=== PATIENT | female | born 1950 | race Caucasian/White ===

== ENCOUNTER → 2017-02-22 | Outpatient (CLI) | payer MEDICARE, BC ==
--- NOTE | 2017-02-23 09:54 | WWHP ---
DATE OF SERVICE: 02/22/2017 CHIEF COMPLAINT: The patient is here for her routine gynecologic exam and mammogram. HPI: This is a 67-year-old G1, P1 with an LMP of 1997. The patient says her last pelvic exam was about [address] Villanueva. She denies any postmenopausal bleeding. She has been having problems with urinary incontinence. She states she saw Dr. Gunter for this in the past and she did not have any surgical procedures for her incontinence. She states she notices large amounts of leakage without warning and this can be from simply standing up. She is to wear pads because of this and this has been a problem for her. The cost of her pads has been quite expensive. She also to having some vulvar pruritus. She does not know if this is related to recently shaving in the vulvar area or it has related to the wetness from urinary leakage. She denies any vaginal discharge. PAST MEDICAL HISTORY: Chronic hypertension, depression, and gout. Dr. Briones is her primary care physician. MEDICATIONS: 1. Lisinopril/hydrochlorothiazide 20/25 one daily. 2. Spironolactone with hydrochlorothiazide 25/25 one daily. 3. Amlodipine 5 mg daily. 4. Metoprolol 50 mg daily. 5. Trazodone 75 mg at bedtime. 6. Citalopram 40 mg q.a.m. 7. Bupropion 200 mg daily. 8. Clonazepam 0.5 mg daily and p.r.n. 9. Allopurinol 100 mg daily. ALLERGIES: No known drug allergies. PAST SURGICAL HISTORY: Colonoscopy x3 and the most recent was in 2012. Cholecystectomy in the past, gastric stomach stapling in 1979, cataract surgery 2015. PAST OB HISTORY: One vaginal delivery. 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 SOCIAL HISTORY: She denies tobacco, alcohol, and drug use. She has been since 1972 and is retired. FAMILY HISTORY: She has 2 brothers and both parents who had MIs. Mother had diabetes. REVIEW OF SYSTEMS: Weight has been stable. She denies respiratory or cardiac problems. GI: She has occasional reflux and occasional brief nausea. She denies maltreatment or falling. : She has been having significant problems with urinary leakage as above. PHYSICAL EXAM: Blood pressure 125/69. Height 5 feet 8 inches. Weight 273 pounds. Temperature 97.0, pulse 61. This a well-developed, obese white female who is alert and oriented x3 in no acute distress. HEENT is within normal limits. NECK: Supple without mass or thyromegaly. CHEST AND LUNGS: Clear to auscultation. HEART: Regular rate and rhythm. Breasts are without mass or discharge. Axillary exam is negative for adenopathy. BACK: Negative for CVA tenderness. ABDOMEN: Obese, soft, nontender, without palpable masses. PELVIC EXAM: External genitalia reveals mild atrophy with moderate dryness. There are no focal lesions. Cervix and vagina reveal mild to moderate atrophy without lesions. There is a grade 2 rectocele noted. There is no significant bladder or uterine prolapse noted. There is no unusual discharge. There is no cervical motion tenderness. The uterus is midposition, nongravid size and nontender. There are no palpable adnexal masses or tenderness. Rectal exam was refused by the patient. EXTREMITIES: Nontender with 2+ lower extremity edema. IMPRESSION: 1. A 67-year-old menopausal female with asymptomatic grade 2 rectocele. 2. Moderate to severe urinary incontinence, probable stress urinary incontinence with no significant physical findings at this time. 3. Vulvar pruritus probably associated with skin dryness and atrophy. This may or may not be related to the chronic urinary leakage. PLAN: 1. Pap smear was performed. 2. Self breast examination was discussed. 3. Mammogram will be done today. 4. Kenalog 0.1% cream b.i.d. p.r.n. for the pruritus. She will alternate this with something like A&D ointment to use as a protective layer for the chronic wetness associated with her incontinence. 5. We will plan on referring her to a SYSTEMS SUPPORT ENGINEER urologist for further evaluation of her urinary incontinence. She had already seen a local urologist without significant improvement. 6. She does get flu shots in the fall. 7. She will return in one year.
--- NOTE | 2017-02-24 10:37 | MM ---
Reason for exam: screening (asymptomatic). Last mammogram was performed 2 years and 11 months ago. History: Patient is postmenopausal. Took estrogen for 2 years 1 month. Took progesterone for 2 years 1 month. Physical Findings: A clinical breast exam by your physician is recommended on an annual basis and results should be correlated with mammographic findings. MG 3D Screening Mammo W/Cad Bilateral CC, MLO, and XCCL view(s) were taken. Prior study comparison: April 04, 2014, bilateral MG screening mammo w CAD. The breast tissue is almost entirely fat. No significant changes when compared with prior studies. ASSESSMENT: Negative, BI-RAD 1 RECOMMENDATION: Routine screening mammogram of both breasts in 1 year.
== END | disposition home or self-care (01) ==
LOC: WWCWWP 13:21
PROVIDERS: ATTEND Obstetrics & Gynecology
DX: Z12.31 Encounter for screening mammogram for malignant neoplasm of breast (principal)
CPT/HCPCS: 77063; G0202

== ENCOUNTER → 2018-02-23 | Outpatient (CLI) | payer MEDICARE ==
--- NOTE | 2018-02-23 18:34 | PN ---
PROGRESS NOTE DATE OF SERVICE: 02/23/2018 This patient is a 68-year-old lady who has been followed in the sleep center for treatment of obstructive sleep apnea-hypopnea syndrome. I did not see this patient for about 2-1/2 years. Since I saw her last time, for one year she continued to use her CPAP equipment, but then she stopped using it. Presently she developed a significant amount of headaches, and she wants to restart treatment with CPAP because she knows that sleep apnea could be the reason for triggering headaches and migraines. I checked her CPAP unit. CPAP pressure is 13 cm of water, as it was prescribed before. The patient changed her weight from 269 pounds down to 260 pounds today. when she did the previous CPAP titration. [place] Sleepiness Scale today is significantly increased at 20. I checked her CPAP unit. She did not use it recently. MEDICATIONS: 1. Metoprolol. 2. Amlodipine. 3. Trazodone. 4. Allopurinol. 5. Spironolactone. 6. Hydrochlorothiazide. 7. Citalopram. 8. Propafenone. 9. Lisinopril with hydrochlorothiazide. 10.Clonazepam. PHYSICAL EXAMINATION: GENERAL: Pleasant patient in no distress. VITAL SIGNS: BP 131/63, HR 56, RR 16, height 5 feet 6 inches, weight 260, BMI 41.9, temperature 98, oxygen saturation at room air 95%. HEENT: PERRLA, EOMI. Evaluation of oropharynx showed tongue protrudes midline; extremely low position of soft palate. NECK: Supple. No JVD. Thyroid is not palpable. LUNGS: Clear to percussion and to auscultation. Good air exchange. No wheezing or rhonchi. HEART: S1, S2 regular. No murmurs, gallops or rubs. ABDOMEN: Obese. EXTREMITIES : No clubbing or cyanosis. DRY COLOR MIXER: Awake, alert, and oriented X3. Cranial nerves 2 to 7 intact. There is no fasciculation or atrophy. noted. No focal deficits observed. IMPRESSION: 1. Obstructive sleep apnea-hypopnea syndrome. 2. Obesity. 3. History of depression and anxiety. 4. Hypertension. 5. Status post cholecystectomy. 6. Status post stomach stapling in 1977. PLAN: 1. Patient will again start to use her CPAP equipment and should use it every night for the whole night. 2. I will provide the patient with all necessary CPAP supplies, including mask, tube, filters. 3. Sleep hygiene with regular time in bed for 7-1/2 hours. 4. No driving if feeling any sleepiness. 5. Continue to lose weight. Thank you very much for allowing me to participate in the management of your patient. Sincerely, Harpreet Galeana MD, PhD, FAASM Diplomat of [employer] Developer of [facility] MMODL / TERRIN: [id number] /
== END | disposition home or self-care (01) ==
LOC: SLEEP 16:43
PROVIDERS: ATTEND Internal Medicine
DX: G47.33 Obstructive sleep apnea (adult) (pediatric) (principal); E66.9 Obesity, unspecified; I10 Essential (primary) hypertension; Z90.49 Acquired absence of other specified parts of digestive tract; Z98.890 Other specified postprocedural states; Z86.59 Personal history of other mental and behavioral disorders; Z68.41 Body mass index [BMI] 40.0-44.9, adult; Z79.899 Other long term (current) drug therapy; Z99.89 Dependence on other enabling machines and devices

== ENCOUNTER → 2018-12-19 | Outpatient (CLI) | payer MEDICARE, OTHER ==
--- NOTE | 2018-12-19 15:57 | BD ---
EXAMINATION TYPE: Axial Bone Density DATE OF EXAM: 12/19/2018 COMPARISON: 2013 Bone scan. CLINICAL HISTORY: post menopausal Height: 5'6 Weight: 254 FRAX RISK QUESTIONS: Secondary Osteoporosis: RISK FACTORS HISTORY OF: Active: n Postmenopausal woman: y MEDICATIONS: Additional Medications: blood pressure, gout, anxiety, Additional History: EXAM MEASUREMENTS: Bone mineral densitometry was performed using the [employer] System. Bone mineral density as measured about the Lumbar spine is: ----- L1-L4(G/cm2): 1.562 T Score Values are as follows: ----- L2: 2.9 ----- L3: 5.4 ----- L4: 2.3 ----- L1-L4: 3.2 Bone mineral density has: Increased 9.6% since study of: 04/04/2014 Bone mineral density about the R hip (g/cm2): 1.146 Bone mineral density about the L hip (g/cm2): 1.138 T Score values are as follows: -----R Neck: 0.8 -----L Neck: 0.7 -----R Total: 1.6 -----L Total: 2.1 Bone mineral density has: Decreased -1.7% since study of: 04/04/2014 IMPRESSION: Normal (Values between +1 and -1 indicate normal bone mass). Consider repeating this study in 5 year s or sooner if there is some new clinical indication. NOTE: T-SCORE=SD OF THE YOUNG ADULT MEAN.
--- NOTE | 2018-12-21 08:53 | MM ---
Reason for exam: screening (asymptomatic). Last mammogram was performed 1 year and 10 months ago. History: Patient is postmenopausal. Took estrogen for 2 years 1 month. Took progesterone for 2 years 1 month. Physical Findings: A clinical breast exam by your physician is recommended on an annual basis and results should be correlated with mammographic findings. MG 3D Screening Mammo W/Cad Bilateral CC and MLO view(s) were taken. Prior study comparison: February 22, 2017, bilateral MG 3d screening mammo w/cad. April 04, 2014, bilateral MG screening mammo w CAD. There are scattered fibroglandular densities. No significant changes when compared with prior studies. ASSESSMENT: Benign, BI-RAD 2 RECOMMENDATION: Routine screening mammogram of both breasts in 1 year.
== END | disposition home or self-care (01) ==
LOC: RADMAMWWP 14:27
PROVIDERS: ATTEND Internal Medicine
DX: Z12.31 Encounter for screening mammogram for malignant neoplasm of breast (principal); Z78.0 Asymptomatic menopausal state
CPT/HCPCS: 77063; 77067; 77080

== ENCOUNTER 2019-09-26 16:44 | Emergency (ER) | payer MEDICARE, OTHER ==
[2019-09-26] MEDS ORDERED: SODIUM CHLORIDE 0.9% 500 ML 500 ML IV STA (17:03)
[2019-09-26] MEDS ORDERED: SODIUM CHLORIDE 0.9% 1,000 ML IV STA (17:03)
[2019-09-26] MEDS ORDERED: NITROGLYCERIN SL TABS 0.4 MG TAB SUBLINGUAL STA (17:04)
--- NOTE | 2019-09-26 17:08 | ED ---
Chest Pain HPI - General Stated Complaint: CHEST PAIN Time Seen by Provider: 09/26/19 16:50 Source: patient, RN notes reviewed - History of Present Illness Initial Comments: This is a 69-year-old female history hypertension who states she had the onset of chest pain about 30-45 minutes prior to my contact with her in the emergency department. She states the pain was 10/10 severity midsternal radiating to her jaw and teeth. Dull and heavy in nature. She states she is feeling somewhat better is down about 8 at this time. She does states she took 3 full strength aspirin today for her chronic back pain. She's not on any blood thinners at this time she denies any recent fevers chills nausea vomiting sweats cough or phlegm production. She feels somewhat generally weak but no focal weakness. She also did have a slight headache. This also included some neck pain that increases with movement and palpation. MD Complaint: chest pain - Related Data Allergies Allergy/AdvReac Type Severity Reaction Status Date / Time No Known Allergies Allergy Verified 09/26/19 17:08 Review of Systems ROS Statement: Those systems with pertinent positive or pertinent negative responses have been documented in the HPI. ROS Other: All systems not noted in ROS Statement are negative. EKG Findings - EKG Results: EKG: interpreted by TRIPP (Sinus rhythm a 78 red bundle-branch block pattern RI interval 190 QRS duration 1:30 QT since QTC 42/458 this is somewhat changed from an EKG dated 10/07/12) General Exam - General Exam Comments Initial Comments: This is a well-developed well-nourished awake alert oriented 3 female General appearance: alert, anxious, in distress Head exam: Present: atraumatic, normocephalic, normal inspection Eye exam: Present: normal appearance, PERRL, EOMI. Absent: scleral icterus, conjunctival injection, periorbital swelling ENT exam: Present: normal exam, mucous membranes moist Neck exam: Present: normal inspection, tenderness, full ROM, other (No stridor JVD or bruits there is tenderness palpation over the left lateral neck musculature no spinous process tenderness). Absent: meningismus, lymphadenopathy Respiratory exam: Present: normal lung sounds bilaterally. Absent: respiratory distress, wheezes, rales, rhonchi, stridor Cardiovascular Exam: Present: regular rate, normal rhythm, normal heart sounds. Absent: systolic murmur, diastolic murmur, rubs, gallop, clicks GI/Abdominal exam: Present: soft, normal bowel sounds. Absent: distended, tenderness, guarding, rebound, rigid Extremities exam: Present: normal inspection, full ROM, normal capillary refill. Absent: tenderness, pedal edema, joint swelling, calf tenderness Back exam: Present: normal inspection Neurological exam: Present: alert, oriented X3, CN II-XII intact Psychiatric exam: Present: normal affect, normal mood Skin exam: Present: warm, dry, intact, normal color. Absent: rash Course Vital Signs 09/26/19 09/26/19 16:52 18:15 Temperature 98.4 F Pulse Rate 77 77 Respiratory 22 18 Rate Blood Pressure 109/65 105/73 O2 Sat by Pulse 95 96 Oximetry - Reevaluation(s) Reevaluation #1: 09/26/19 17:35 Patient does state her pain is improved to about 2-3/10 from what it was earlier. Also additional information the patient's states that he does have a pulse ox at home and at times he try to home her pulse rate was 32 Reevaluation #2: 09/26/19 19:03 I did discuss the CT findings with Dr. Rob, patient does have bilateral pulmonary emboli with right heart strain. I did later discussed the case with Dr. Marks. Patient will be transferred to [facility]. I did discuss the case with Dr. Jain who is agreed to accept the patient year to year transfer. Chest Pain MDM - MDM I did discuss the findings with the patient and family members. Patient will be transferred to [facility] for further evaluation and treatment of bilateral pulmonary emboli with right heart strain. She does have elevation of her troponin is likely on this basis. Critical Care Time Critical Care Time: Yes Critical Care Time: 45 minutes of critical care time which includes initial presentation with history physical labs x-rays reevaluation the patient responsive therapy multiple discussions with the patient family discussed with Dr. Oliveros and Dr. Merrill as well as Dr. Jain as well as EMS crew transferring the patient. Review of old charting was available documentation of the above. Also did include discussion with radiologist. Disposition Clinical Impression: Bilateral pulmonary embolism, Chest pain, Elevated troponin, Hypotensive episode Disposition: OTHER INSTITUTION NOT DEFINED Condition: Serious Referrals: Gordy Briones MD [Primary Care Provider] - 1-2 days - Out of Hospital Transfer - Req. Specs Out of Hospital Transfer - Requested Specifics: Other Emergency Center
[2019-09-26 17:19] LABS: HGB 12.5 gm/dL (11.4-16.0); MCH 29.9 pg (25.0-35.0); MCHC 33.7 g/dL (31.0-37.0); MCV 88.9 fL (80.0-100.0); Platelet Count 199 k/uL (150-450); RBC 4.16 m/uL (3.80-5.40); RDW 13.2 % (11.5-15.5); WBC 5.6 k/uL (3.8-10.6)
[2019-09-26 17:31] LABS: Albumin 4.3 g/dL (3.5-5.0); Calcium 10.6 mg/dL (8.4-10.2); Magnesium 1.6 mg/dL (1.6-2.3); Potassium 3.7 mmol/L (3.5-5.1); Total Bilirubin 0.8 mg/dL (0.2-1.3); Total Protein 7.4 g/dL (6.3-8.2)
[2019-09-26 17:34] LABS: INR 0.9 (<1.2)
--- NOTE | 2019-09-26 17:55 | XR ---
EXAMINATION TYPE: XR chest 2V DATE OF EXAM: 09/26/2019 COMPARISON: Chest x-ray December 09, 2015. HISTORY: Chest and jaw pain. TECHNIQUE: Frontal and lateral views of the chest are obtained. FINDINGS: There is no focal air space opacity, pleural effusion, or pneumothorax seen. The cardiac silhouette size is stable and mildly enlarged with atherosclerotic change aortic knob. Overlying EKG leads are present. Slight dextroconvex scoliotic curvature is again seen. IMPRESSION: Mild cardiomegaly without acute pulmonary process.
[2019-09-26 18:05] LABS: D-Dimer 4.26 mg/L FEU (<0.60)
[2019-09-26 18:16] VITALS: RESP 18
--- NOTE | 2019-09-26 18:37 | CT ---
EXAMINATION TYPE: CT brain wo con DATE OF EXAM: 09/26/2019 HISTORY: Headache, weakness, and dizziness. CT DLP: 1106.4 mGycm. Automated Exposure Control for Dose Reduction was Utilized. TECHNIQUE: CT scan of the head is performed without contrast. COMPARISON: None. FINDINGS: There is no acute intracranial hemorrhage or midline shift identified. There is diffuse v entricular and sulcal prominence consistent with diffuse age-related cerebral atrophy. There is low- attenuation in the periventricular white matter consistent with chronic small vessel ischemic change. Air-fluid level dependently in the right sphenoid sinus. IMPRESSION: No acute intracranial hemorrhage or midline shift. There is mild diffuse age-related ce rebral atrophy and chronic small vessel ischemic change noted. Possible mild acute right sphenoid si nusitis, correlate clinically
[2019-09-26] MEDS ORDERED: HEPARIN SOD,PORK IN 0.45% NACL 25,000 UNIT in 0.45% NACL 1 250ML.BAG IV SCH (18:45)
[2019-09-26] MEDS ORDERED: HEPARIN SODIUM,PORCINE 10,000 UNIT/ML 1 ML VIAL IV ONE (18:45)
[2019-09-26] MEDS ORDERED: HEPARIN SODIUM,PORCINE 5,000 UNIT/ML 1 ML VIAL IV PRN (18:45)
--- NOTE | 2019-09-26 18:46 | CT ---
EXAMINATION TYPE: CT angio chest DATE OF EXAM: 09/26/2019 COMPARISON: NONE HISTORY: Chest pain and pressure. Elevated d-dimer. CT DLP: 769.9 mGycm. Automated Exposure Control for Dose Reduction was Utilized. CONTRAST: CTA scan of the thorax is performed with IV Contrast, patient injected with 80 mL of Isovue 370, pulm onary embolism protocol. MIP Images are created on CT scanner and reviewed. FINDINGS: LUNGS: Small focus of groundglass opacity anterior left mid lung axial image 47. No suspicious nodule s or masses. No pleural effusion or pneumothorax. MEDIASTINUM: There is satisfactory enhancement of the pulmonary artery and its branches, there is pul monary emboli centrally beginning in the distal right and left pulmonary arteries with multilobar ext ension most prominent in bilateral lower lobes and right middle lobe but also extension into upper lo bar branches. Saddle embolism also noted axial image 52 posterior at branch. Areas of segmental pulmo nary emboli are present bilaterally. Mild cardiomegaly is seen with right ventricular dilatation and abnormal ratio. There are no greater than 1 cm hilar or mediastinal lymph nodes. No cardiomegaly o r pericardial effusion is seen. OTHER: Surgical changes from gastric sleeve are present. Cholecystectomy clips are noted. Multilevel spurring and spine. Prominent left thyroid with posterior extension incidentally noted. IMPRESSION: Significant bilateral pulmonary embolism with right ventricular strain. Critical results communicated to ordering ER physician via telephone at time of dictation.
[2019-09-26 18:52] LABS: Band Neutrophils % 1 %; Eosinophils # (M) 0.17 k/uL (0-0.7); Lymphocytes # (M) 2.18 k/uL (1.0-4.8); Monocytes # (M) 0.67 k/uL (0-1.0); Myelocytes # (M) 0.06 k/uL (0); Myelocytes % 1 %; Neutrophils % (M) 46 %; Nucleated Red Blood Cells 0 /100 WBC (0-0); Total Cells Counted 200
[2019-09-26 19:18] VITALS: BP 129/90; PULSE 83; TEMP 98.3
== END 2019-09-26 19:37 | disposition short-term general hospital (02) ==
LOC: EC 16:44
DX: I26.99 Other pulmonary embolism without acute cor pulmonale (principal); I95.9 Hypotension, unspecified; R79.89 Other specified abnormal findings of blood chemistry; G89.29 Other chronic pain; M54.9 Dorsalgia, unspecified; R51 Headache; M54.2 Cervicalgia; Z82.49 Family history of ischemic heart disease and other diseases of the circulatory system
CPT/HCPCS: 36415; 85379; 83880; 80053; 82550; 83690; 83735; 84484; 85025; 85610; 85730; 71046; 70450; 71275; 99291; 96365; 96376; 96361 ×2; J1644 ×2; Q9967

== ENCOUNTER → 2020-07-16 | Outpatient (CLI) | payer MEDICARE, OTHER ==
--- NOTE | 2020-07-17 14:15 | MM ---
Reason for exam: screening (asymptomatic). Last mammogram was performed 1 year and 7 months ago. History: Patient is postmenopausal. Took estrogen for 2 years 1 month. Took progesterone for 2 years 1 month. Physical Findings: A clinical breast exam by your physician is recommended on an annual basis and results should be correlated with mammographic findings. MG 3D Screening Mammo W/Cad Bilateral CC and MLO view(s) were taken. Prior study comparison: December 19, 2018, bilateral MG 3d screening mammo w/cad. February 22, 2017, bilateral MG 3d screening mammo w/cad. There are scattered fibroglandular densities. Benign appearing bilateral calcifications. No significant changes when compared with prior studies. ASSESSMENT: Benign, BI-RAD 2 RECOMMENDATION: Routine screening mammogram of both breasts in 1 year.
== END | disposition home or self-care (01) ==
LOC: RADMAMWWP 15:46
PROVIDERS: ATTEND Internal Medicine
DX: Z12.31 Encounter for screening mammogram for malignant neoplasm of breast (principal)
CPT/HCPCS: 77063; 77067

== ENCOUNTER → 2020-07-29 | Outpatient (CLI) | payer MEDICARE, OTHER ==
[2020-07-29 15:55] VITALS: BP 125/82; PULSE 65; RESP 16; TEMP 97.9
--- NOTE | 2020-07-29 18:45 | P.HPOB ---
History of Present Illness H&P Date: 07/29/20 Chief Complaint: The patient is here for her routine gynecologic exam. This is a 70-year-old with an LMP of 1997. She is concerned that she is having problems with a rectocele. She has been experiencing sharp pains that go up the vagina and she has also finding that she has to push on the perineum to sometimes have a bowel movement. She denies any external bulge from the vagina. Her bowel movements can vary and sometimes she has diarrhea and sometimes she has constipation. 2 weeks ago she had a bowel movement and noticed some blood as well as pain with a bowel movement. Last week she underwent a colonoscopy which was apparently unremarkable. Review of Systems She has lost about 26 pounds over the past 3 years. She denies respiratory or cardiac problems. GI she had blood per rectum about 2 weeks ago and this was for one episode only. She has been experiencing some loose stools as well as constipation. Neurologic: She has been experiencing dizziness and is undergoing a workup through a neurologist. : She has been experiencing chronic urinary leakage and this is not new. She can leak large amounts at times. She has seen a urologist for this in the past. Past Medical History Past Medical History: Hypertension, Pulmonary Embolus (PE) Additional Past Medical History / Comment(s): DDD. PE September 2019. History of gout. 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 History of Any Multi-Drug Resistant Organisms: None Reported Past Surgical History: Bariatric Surgery, Cholecystectomy Additional Past Surgical History / Comment(s): cataract sx. Gastric stapling in 1979. Cataract surgery 2015. Colonoscopy June 2020. Past Psychological History: Anxiety, Depression Smoking Status: Never smoker Past Alcohol Use History: None Reported Past Drug Use History: None Reported Additional History: She has been since 1972 and is retired. - Past Family History Mother Family Medical History: Diabetes Mellitus, Myocardial Infarction ([place]) Father Family Medical History: Myocardial Infarction ([place]) Brother(s) Family Medical History: Myocardial Infarction ([place]) Medications and Allergies Home Medications Medication Instructions Recorded Confirmed Type Allopurinol [Zyloprim] 100 mg PO DAILY 07/29/20 07/29/20 History Apixaban [Eliquis] 5 mg PO BID 07/29/20 07/29/20 History Citalopram Hydrobromide 40 mg PO DAILY 07/29/20 07/29/20 History [Citalopram HBr] Lisinopril-Hctz 20-25 mg 1 tab PO DAILY 07/29/20 07/29/20 History [Zestoretic 20-25] Metoprolol Succinate [Toprol XL] 25 mg PO DAILY 07/29/20 07/29/20 History amLODIPine [Norvasc] 5 mg PO HS 07/29/20 07/29/20 History buPROPion HCL [buPROPion HCL ER] 200 mg PO DAILY 07/29/20 07/29/20 History clonazePAM [KlonoPIN] 0.5 mg PO PRN 07/29/20 History Allergies Allergy/AdvReac Type Severity Reaction Status Date / Time No Known Allergies Allergy Verified 07/29/20 15:56 Exam Vital Signs Temp Pulse Resp BP Pulse Ox 07/29/20 15:30 97.9 F 65 16 125/82 97 Intake and Output 07/29/20 07/29/20 07/29/20 06:59 14:59 22:59 Other: Weight 112.037 kg Height 5 feet 8 inches, weight 247 pounds, BMI 37.6. This is a well-developed well-nourished heavyset white female who is alert and oriented times 3 in no acute distress. HEENT: Within normal limits. NECK: Supple without mass or thyromegaly. CHEST AND LUNGS: Clear to auscultation. HEART: Regular rate and rhythm. BREASTS: Are without mass or discharge. AXILLARY EXAM: Negative for adenopathy. BACK: Negative for CVA tenderness. ABDOMEN: Soft, obese, nontender, without palpable masses. PELVIC EXAM: Normal external genitalia with mild atrophy. Cervix and vagina appear normal with mild atrophy. There is no unusual discharge. There is a grade 2 rectocele which is stable from her previous examination. The uterus is midposition, nongravid size and nontender. There is a palpable mass posterior to the uterus just left of the midline which measures approximate 5 x 5 cm. It is somewhat firm and slightly irregular. It is nontender. The patient states that her vulvar discomfort seems to actually improve when I push on the mass. RECTAL EXAM: Rectovaginal exam is negative for rectal mass or tenderness and is negative for occult blood. The pelvic mass as mentioned in the pelvic exam is palpable with the rectovaginal exam and is not in the rectum. EXTREMITIES: Nontender. IMPRESSION: 1. 70-year-old menopausal female with stable grade 2 rectocele. 2. Pelvic discomfort with a palpable pelvic mass measuring approximate 5 x 5 cm. Differential diagnosis will include posterior uterine fibroid, retroverted uterus, ovarian neoplasm, colonic stool, GI mass, or other non-gynecologic mass. 3. Chronic urinary incontinence. PLAN: 1. Pap smear was performed. 2. Pelvic ultrasound will be scheduled. The order slip was given to the patient for this. 3. Consider additional imaging such as CT scan of the abdomen and pelvis if the pelvic ultrasound does not provide an explanation for the pain or mass. 4. We had a discussion regarding the small rectocele and I do not believe this is the cause for her pelvic discomfort. 5. She did receive her flu shot earlier today. 6. We have discussed possible referral to a gynecologic urologist for her chronic urinary problems. She will let me know if she would like to proceed with this type of referral. 7. She will return as above, as needed, and yearly.
--- NOTE | 2020-07-30 13:03 | P.PN ---
Progress Note - Text Progress Note Date: 07/30/20 The patient has called me today to tell me that during her last colonoscopy done by Dr. Robbins, some type of mesh was seen in the colon and she was told that they would follow this conservatively to see if it worked its way out. The patient was not sure whether this had something to do with the mass that I felt on my exam yesterday. The patient will have Dr. Robbins's office send me the colonoscopy report so I can better understand what this finding represents.
--- NOTE | 2020-08-06 15:32 | P.PN ---
Progress Note - Text Progress Note Date: 08/06/20 OUTPATIENT FOLLOW-UP NOTE TEST(S)/RESULTS: Pap smear done on 07/29/2020 was negative. METHOD OF NOTIFICATION: She was notified by phone. PATIENT COMMENTS: She is happy to hear this result. She has had no history of abnormal Pap smears in the past. DIAGNOSIS: If Pap smear. DISCUSSION: Dr. Villanueva's chart was reviewed. She did have negative Pap smears with negative high-risk HPV testing in 2008, 2009 and 2011. Given that she is greater than 65 and adequately screened with no history of abnormal Pap smears, we will discontinue Pap smears. PLAN: The patient is scheduled for a pelvic ultrasound on 08/14/2020 for the pelvic mass.
== END | disposition home or self-care (01) ==
LOC: WWCWWP 15:01
PROVIDERS: ATTEND Obstetrics & Gynecology
DX: Z53.9 Procedure and treatment not carried out, unspecified reason (principal)

== ENCOUNTER → 2020-08-14 | Outpatient (CLI) | payer MEDICARE, OTHER ==
[2020-08-15 00:02] LABS: Hemoglobin A1C 4.9 % (4.0-6.0)
[2020-08-15 01:09] LABS: Protein, Total 6.6 g/dL (6.2-8.2)
[2020-08-15 01:15] LABS: T4, Free (Free Thyroxine) 1.4 ng/dL (0.80-1.80)
[2020-08-15 14:12] LABS: ANA Pattern See Footnote
== END | disposition home or self-care (01) ==
LOC: LABWHC1 15:39
PROVIDERS: ATTEND Psychiatry & Neurology Neurology
DX: G62.9 Polyneuropathy, unspecified (principal)
CPT/HCPCS: 36415; 82550; 82607; 82747; 83036; 84165; 84439; 84443; 86038; 86039; 86334

== ENCOUNTER → 2020-08-14 | Outpatient (CLI) | payer MEDICARE, OTHER ==
--- NOTE | 2020-08-14 18:50 | US ---
EXAMINATION TYPE: US transvaginal DATE OF EXAM: 08/14/2020 COMPARISON: NONE CLINICAL HISTORY: 70-year-old female R10.2M R19.09 PELVIC MASS / PELVIC PAIN. Vaginal shooting pain, patient states she had abdominoplasty years ago and the mesh is failing. TECHNIQUE: TV. Transvaginal sonographic images Date of LMP: 25+ yrs ago FINDINGS: EXAM MEASUREMENTS: Uterus: 4.1 x 4.7 x 1.9 cm Endometrial Stripe: 0.3 cm Right Ovary: not seen Left Ovary: not seen 1. Uterus: Anteverted and atrophic 2. Endometrium: Small amount of fluid within the uterine cavity. 3. Right Ovary: not seen due to bowel gas and atrophy 4. Left Ovary: not seen due to bowel gas and atrophy 5. Bilateral Adnexa: 8.0 x 6.9 x 6.9cm cystic area seen, unknow if related to ovary since no ovarian tissue was seen. This structure contains thin septations and peripheral cystic locule measuring 4 mm thick. Possible 1 cm mural-based nodularity. 6. Posterior cul-de-sac: wnl IMPRESSION: 1. Mildly complex cystic left adnexal lesion measuring 8.0 cm. Some septations measuring up to 4 mm t hick are present and a possible 1 cm mural based nodule. This can be seen with a cystic epithelial ov sarah neoplasm. Recommend surgical consultation. Female pelvic MRI may be helpful in better character izing. 2. Small amount of fluid within the uterine cavity of unclear etiology. Consider cervical stenosis. E ndometrial stripe does not appear thickened.
== END | disposition home or self-care (01) ==
LOC: RADUSWWP 16:13
PROVIDERS: ATTEND Obstetrics & Gynecology
DX: N83.8 Other noninflammatory disorders of ovary, fallopian tube and broad ligament (principal); D49.59 Neoplasm of unspecified behavior of other genitourinary organ
CPT/HCPCS: 76830

== ENCOUNTER → 2020-08-21 | Outpatient (CLI) | payer MEDICARE, OTHER ==
--- NOTE | 2020-08-26 18:11 | P.PN ---
Progress Note - Text Progress Note Date: 08/26/20 OUTPATIENT FOLLOW-UP NOTE TEST(S)/RESULTS: CA-125 test done on 08/21/2020 was normal. METHOD OF NOTIFICATION: She was notified by phone. PATIENT COMMENTS: DIAGNOSIS: Pelvic mass and a menopausal female with normal CA-125 test. DISCUSSION: I have explained to her that this test does not exclude a malignancy. She is currently in the process of being referred to a gynecologic oncologist. We will send this blood test to the gynecologic oncologist. PLAN: As above.
== END | disposition home or self-care (01) ==
LOC: LABWHC1 14:48
PROVIDERS: ATTEND Obstetrics & Gynecology
DX: R19.09 Other intra-abdominal and pelvic swelling, mass and lump (principal)
CPT/HCPCS: 36415; 86304

== ENCOUNTER → 2020-09-12 | Outpatient (CLI) | payer MEDICARE, OTHER ==
--- NOTE | 2020-09-12 15:59 | MR ---
EXAMINATION TYPE: MR angio head wo con DATE OF EXAM: 09/12/2020 COMPARISON: CT brain HISTORY: Dizziness, family hx aneurysm TECHNIQUE: Time of flight images focusing on the [place] were performed without contrast. Th ree-dimensional reconstructions performed on an alternate workstation. FINDINGS: Anterior and posterior circulation are intact. The left vertebral artery is patent. There i s no evident aneurysm, dissection, or embolus. IMPRESSION: Normal [place] MRA
== END | disposition home or self-care (01) ==
LOC: RADMRIMAIN 14:50
PROVIDERS: ATTEND Psychiatry & Neurology Neurology
DX: I63.9 Cerebral infarction, unspecified (principal); Z84.89 Family history of other specified conditions
CPT/HCPCS: 70544

== ENCOUNTER → 2021-05-12 | Outpatient (CLI) | payer MEDICARE, OTHER ==
--- NOTE | 2021-05-12 18:01 | CONS ---
CONSULTATION CONSULTATION FOR SLEEP APNEA: This patient is 71. She has been diagnosed having obstructive sleep apnea back in 2013. Her last titration was done on 02/23/2018 and the patient was titrated to therapy of CPAP pressure of 13 cm of water. The patient did use her CPAP machine for quite some time and then she quit and currently she is symptomatic and she is having excessive tiredness and sleepiness. She is coming in for further advice. She states that she is claustrophobic and she may not be able to tolerate a full-face mask. She goes to bed around 10:00 to midnight and she wakes up 7-8:00 in the morning and she is averaging around 8-10 hours of sleep. Despite that she is feeling drowsy or sleepy and tired and fatigued. Her has obstructive sleep apnea and he uses his CPAP machine. Her weight is down and she has undergone bariatric surgery back in the 80s. Currently, her weight is stable at 260. [place] score is at 10. Her sleep is fragmented and she wakes up frequently in the middle of the night. She is looking for solutions and treatment options. PAST MEDICAL HISTORY: 1. Obstructive sleep apnea. 2. Obesity with previous bariatric surgery. 3. Chronic anxiety/depression. 4. Hypertension. 5. History of pulmonary embolism. 6. Hyperuricemia/gout. 7. Factor V Leiden. SURGICAL HISTORY: Includes gastric bypass surgery, cholecystectomy and hysterectomy DRUG ALLERGIES: MIRALAX. OUTPATIENT MEDICATION LIST: Includes Eliquis 5 mg twice a day, Lasix 20 mg p.o. daily, citalopram 20 mg p.o. daily, Wellbutrin 150 mg twice a day, allopurinol 100 mg p.o. daily, lisinopril 20 mg p.o. daily, Norvasc 5 mg p.o. daily, potassium 20 mEq p.o. daily, clonazepam 0.5 at bedtime, hyoscyamine on a as needed basis. SOCIAL HISTORY: He is a nonsmoker. No history of alcoholism. No history of IV drugs. FAMILY HISTORY: Negative for or any form of sleep breathing disorder. REVIEW OF SYSTEMS: Fourteen-point review of system was done, positive findings are mentioned in history of present illness. PHYSICAL EXAMINATION: BP 147/78, pulse 72, respirations 16, temperature 97.7 saturation 97% on room air. Height is 5 feet 6 inches, weight is 252, BMI is 40.6 and neck size 15-3/4 of an inch. GENERAL APPEARANCE: Obese, calm, comfortable. HEAD is atraumatic, normocephalic. NECK is short. There is no goiter or neck masses Mallampati class 4. LUNGS: Diminished, otherwise clear. HEART: Heart sounds are regular rate and rhythm. Normal S1, S2. No S3, S4. No murmurs. ABDOMEN: Soft nontender, obese. No direct tenderness, rebound or guarding. EXTREMITIES: No edema, cyanosis or clubbing. NEUROLOGIC: Awake and alert. There is no focal neurological deficit. IMPRESSION: 1. Obstructive sleep apnea, severe AHI of 44, currently on no treatment. She is symptomatic and she wants to proceed with CPAP therapy. She brings with her an older-generation Respironics unit which is set at a pressure of 13 cm of water. She does not have any appropriate mask interface and feels the pressure is quite high. 2. Morbid obesity with a BMI of 40.6. 3. History of pulmonary embolism with factor V Leiden, currently on anticoagulation. 4. Hypertension. 5. Hyperuricemia/gout. PLAN: I checked her previous CPAP titration that was done in 2018. Back then the patient used to weigh around 260 pounds and she is maintaining essentially the same weight. As such, based on my review of the previous titration we should be able to get by with a lower CPAP pressure. I lowered the CPAP pressure down to 8 cm of water and I kept the same machine which is an older-generation Respironics unit. I also tried different mask interface. Seems that the patient is unable to use a full-face mask. I offered the DreamWear gel pillows, small size to try and she was able to tolerate without any major difficulties. I think claustrophobia may be contributing to some of her intolerability. I lowered the pressure down to 8 cm of water, gave her the appropriate mask interface and I asked her to see me back in a few months' time for followup to assess clinical response and compliancy. Encourage weight loss. Treat cardiovascular risk factors. Continue anticoagulation for recent pulmonary embolism. Will follow. MMODL / IJN: [id number] /
== END ==
LOC: SLEEP 14:47
PROVIDERS: ATTEND Internal Medicine Critical Care Medicine
DX: G47.33 Obstructive sleep apnea (adult) (pediatric) (principal); E66.01 Morbid (severe) obesity due to excess calories; Z68.41 Body mass index [BMI] 40.0-44.9, adult; Z86.711 Personal history of pulmonary embolism; I10 Essential (primary) hypertension; M10.9 Gout, unspecified; Z79.01 Long term (current) use of anticoagulants; Z99.89 Dependence on other enabling machines and devices; F32.9 Major depressive disorder, single episode, unspecified; F41.9 Anxiety disorder, unspecified; Z83.2 Family history of diseases of the blood and blood-forming organs and certain disorders involving the immune mechanism
CPT/HCPCS: 99211

== ENCOUNTER → 2021-08-26 | Outpatient (CLI) | payer MEDICARE, OTHER ==
[2021-08-26 10:51] VITALS: BP 137/83; PULSE 86; RESP 18; TEMP 98.2
--- NOTE | 2021-08-26 13:02 | P.HPOB ---
History of Present Illness H&P Date: 08/26/21 Chief Complaint: The patient is here for her routine gynecologic exam. This is a 71-year-old with an LMP of 1997. The patient was found to have a large pelvic mass on exam last year. Imaging studies demonstrated a 9 cm cystic mass in the pelvis and she was referred to Dr. Mao Batista at the [facility]. On 09/29/2020, she had a DEDRA/BSO with repair of an umbilical hernia and the mass was found to be a benign simple cyst. Prior to the surgery she had sharp vaginal pains. She states that after the surgery she developed worse vaginal pains that she rated at a 10 out of 10. The were fairly constant and Dr. Batista referred her to [facility]. At [facility], they did not feel that they would be able to handle her situation and she was referred to [facility] for physical therapy. They in turn had her see Dr. sIa Duff at [facility] in [place]. She has been using a combination of physical therapy and medications. After she was started on the medications, which included Lyrica by mouth, and compounded vaginal suppositories which contained diazepam, baclofen, and gabapentin, she noticed significant improvement and her pain has been 0-1 out of 10 during the last 30 days. Since her surgery she states she has developed a large right abdominal wall hernia and may be seeing Dr. Buckley for this. Review of Systems She is getting about 23 pounds over the past year. She denies respiratory or cardiac problems. GI: She has had some issues with constipation. Past Medical History Past Medical History: Hypertension, Pulmonary Embolus (PE) Additional Past Medical History / Comment(s): DDD. PE September 2019. History of gout. 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 History of Any Multi-Drug Resistant Organisms: None Reported Past Surgical History: Bariatric Surgery, Cholecystectomy, Hysterectomy Additional Past Surgical History / Comment(s): cataract sx. Gastric stapling in 1979. Cataract surgery 2015. Colonoscopy June 2020. DEDRA/BSO with umbilical hernia repair in September 2020. Past Psychological History: Anxiety, Depression Smoking Status: Never smoker Past Alcohol Use History: None Reported Past Drug Use History: None Reported Additional History: She has been since 1972 and is retired. - Past Family History Mother Family Medical History: Diabetes Mellitus, Myocardial Infarction ([place]) Father Family Medical History: Myocardial Infarction ([place]) Brother(s) Family Medical History: Myocardial Infarction ([place]) Medications and Allergies Home Medications Medication Instructions Recorded Confirmed Type Allopurinol [Zyloprim] 100 mg PO DAILY 07/29/20 08/26/21 History Apixaban [Eliquis] 5 mg PO BID 07/29/20 08/26/21 History Lisinopril-Hctz 20-25 mg 1 tab PO DAILY 07/29/20 08/26/21 History [Zestoretic 20-25] amLODIPine [Norvasc] 5 mg PO HS 07/29/20 08/26/21 History buPROPion HCL [buPROPion HCL ER] 200 mg PO DAILY 07/29/20 08/26/21 History clonazePAM [KlonoPIN] 0.5 mg PO DAILY PRN 07/29/20 08/26/21 History Diazepam,Baclofen,Gabapentin 1 suppositor VAGINAL HS 08/26/21 08/26/21 History Furosemide [Lasix] 20 mg PO DAILY 08/26/21 08/26/21 History [place]-3 Fatty Acids/Fish Oil 1 each PO DAILY 08/26/21 08/26/21 History [Warren-3 Fish Oil 1,200 mg Sfgl] Potassium Chloride [Klor-Con 20 20 meq PO DAILY 08/26/21 08/26/21 History Packets] Pregabalin [Lyrica] 75 mg PO BID 08/26/21 08/26/21 History Allergies Allergy/AdvReac Type Severity Reaction Status Date / Time No Known Allergies Allergy Verified 08/26/21 10:40 Exam Vital Signs Temp Pulse Resp BP Pulse Ox 08/26/21 10:47 98.2 F 86 18 137/83 98 Intake and Output 08/25/21 08/26/21 08/26/21 22:59 06:59 14:59 Other: Weight 122.47 kg Height 5 feet 5-1/2 inches, weight 270 pounds, BMI 44.2. This is a well-developed well-nourished heavyset white female who is alert and oriented times 3 in no acute distress. HEENT: Within normal limits. NECK: Supple without mass or thyromegaly. CHEST AND LUNGS: Clear to auscultation. HEART: Regular rate and rhythm. BREASTS: Are without mass or discharge. AXILLARY EXAM: Negative for adenopathy. BACK: Negative for CVA tenderness. ABDOMEN: Soft, obese nontender, a large right abdominal wall hernia. The abdominal wall hernia measures 12 x 11 cm and is soft and nontender. She has well-healed vertical incisions above and below the umbilicus. Other than the abdominal wall hernia, there are no palpable masses. PELVIC EXAM: External genitalia appears normal with mild atrophy. Vagina appears normal with mild atrophy. There is a stable grade 2 rectocele. There is no other noticeable prolapse. The vaginal cuff seems well supported. Bimanual examination is negative for mass or tenderness. RECTAL EXAM: Rectovaginal exam is negative for mass or tenderness and is negative for occult blood. EXTREMITIES: Nontender. IMPRESSION: 1. 71-year-old menopausal female status post DEDRA/BSO for a benign ovarian mass 11 months ago. 2. Chronic sharp vaginal and pelvic pains pre-and post surgery. This has symptomatically improved with pelvic physical therapy as well as medications including Lyrica, diazepam, gabapentin, and baclofen. There are no significant physical findings on exam today regarding her sharp vaginal and pelvic pains. 3. Large right abdominal wall hernia. 4. Stable asymptomatic grade 2 rectocele. PLAN: 1. Pap smears have been discontinued. 2. Self breast awareness was discussed with the patient. We have also discussed symptoms associated with inflammatory breast cancer. 3. Mammogram is due and the order slip was given to the patient for this. 4. Osteoporosis prevention was discussed. I have stressed the importance of adequate calcium, vitamin D and regular exercise. Recommended amounts of calcium and vitamin D were also discussed. Bone density testing was recommended and the order slip was given to the patient for this. 5. She has completed her Covid vaccination series. 6. We have had a long discussion regarding her pelvic and vaginal pains which now seem to be symptomatically improved with physical therapy and medications. She will continue to see her physical therapy and pelvic rehab medicine doctor for this treatment since it does seem to be helping with her pain. 7. The patient states she plans on seeing Dr. Buckley, the general surgeon, regarding the abdominal wall hernia and an issue with some type of mesh used at the time of her bariatric surgery that was apparently seen at the time of her colonoscopy. 8. Negative Valsalva exercises were discussed which she may try if she is symptomatic with her vaginal pains or symptomatic with her abdominal wall hernia. She was instructed to seek medical attention if she is having worsening pains that are not improving. 9. She was advised to return in one year for her annual well woman exam and as needed.
== END ==
LOC: WWCWWP 10:28
PROVIDERS: ATTEND Obstetrics & Gynecology
DX: Z01.419 Encounter for gynecological examination (general) (routine) without abnormal findings (principal); R10.2 Pelvic and perineal pain; Z90.710 Acquired absence of both cervix and uterus; Z90.722 Acquired absence of ovaries, bilateral; K43.9 Ventral hernia without obstruction or gangrene; I10 Essential (primary) hypertension; F41.9 Anxiety disorder, unspecified; F32.9 Major depressive disorder, single episode, unspecified; Z79.899 Other long term (current) drug therapy; Z78.0 Asymptomatic menopausal state

== ENCOUNTER 2021-09-18 12:36 | Emergency (ER) | payer MEDICARE, OTHER ==
[2021-09-18 13:05] VITALS: TEMP 97.9
[2021-09-18] MEDS ORDERED: ALBUTEROL HFA INHALER INHALATION STA (13:39)
[2021-09-18 14:06] LABS: HCT 34.8 % (34.0-46.0); MCH 30.8 pg (25.0-35.0); MCHC 34.4 g/dL (31.0-37.0); MCV 89.5 fL (80.0-100.0); Mean Platelet Volume 8.3; Platelet Count 221 k/uL (150-450); RBC 3.89 m/uL (3.80-5.40); RDW 13.9 % (11.5-15.5); WBC 5.9 k/uL (3.8-10.6)
--- NOTE | 2021-09-18 14:14 | XR ---
EXAMINATION TYPE: XR chest 2V DATE OF EXAM: 09/18/2021 COMPARISON: Chest x-ray and CTA chest September 26, 2019 HISTORY: Cough and congestion. TECHNIQUE: Frontal and lateral views of the chest are obtained. FINDINGS: There there are new patchy multifocal opacities greatest in the lower lungs. The cardiac silhouette size is upper limits of normal. The osseous structures are intact. IMPRESSION: New bilateral multifocal opacities greatest in the lower lungs, correlate to exclude cov id-19 infection in current environment
[2021-09-18 14:27] LABS: Potassium 3.9 mmol/L (3.5-5.1)
[2021-09-18 15:07] LABS: Eosinophils # (M) 0.18 k/uL (0-0.7); Lymphocytes # (M) 2.07 k/uL (1.0-4.8); Monocytes # (M) 1.18 k/uL (0-1.0); Neutrophils # (M) 2.48 k/uL (1.3-7.7); Neutrophils % (M) 42 %; Nucleated Red Blood Cells 0 /100 WBC (0-0); Total Cells Counted 100
[2021-09-18] MEDS ORDERED: CASIRIVIMAB (REGN10933) (EUA) 600 MG, IMDEVIMAB (REGN10987) (EUA) 600 MG in SODIUM CHLO... IVPB ONE (15:30)
[2021-09-18] MEDS ORDERED: SODIUM CHLORIDE 0.9% 50 ML IVPB ONE (15:30)
[2021-09-18 15:49] VITALS: RESP 18
[2021-09-18 18:34] VITALS: BP 146/90; PULSE 67
--- NOTE | 2021-09-18 21:06 | ED ---
General Adult HPI - General Chief complaint: Upper Respiratory Infection Stated complaint: Cough, Weakness Time Seen by Provider: 09/18/21 13:08 Source: patient, RN notes reviewed, old records reviewed Mode of arrival: ambulatory Limitations: no limitations - History of Present Illness Initial comments: Patient is a 71-year-old female with past medical history remarkable for recurrent blood clots on anticoagulation presents emergency Department compla ining of upper respiratory symptoms for the last week. She endorses a decreased appetite as well as fatigue. Patient was vaccinated with both doses of the Covid 19 vaccination. She denies any known sick contacts. Endorses fatigue. Denies nausea, vomiting, abdominal pain. Does endorse mild diarrhea. Denies any chest pain. States she is compliant with her anticoagulation. She otherwise has no acute complaints at this time. Patient presents over concern for possible upper respiratory infection. She is currently on day 8 or 9 of symptoms. - Related Data Home Medications Medication Instructions Recorded Confirmed Allopurinol [Zyloprim] 100 mg PO DAILY 07/29/20 09/18/21 Apixaban [Eliquis] 5 mg PO BID 07/29/20 09/18/21 clonazePAM [KlonoPIN] 0.5 mg PO HS 07/29/20 09/18/21 Furosemide [Lasix] 20 mg PO DAILY 08/26/21 09/18/21 [place]-3 Fatty Acids/Fish Oil 1 cap PO DAILY 08/26/21 09/18/21 [[place]-3 Fish Oil 1,200 mg Sfgl] Potassium Chloride [Klor-Con 20 20 meq PO DAILY 08/26/21 09/18/21 Packets] Pregabalin [Lyrica] 75 mg PO BID 08/26/21 09/18/21 Clotrimazole/Betameth Cream 1 applic TOPICAL BID 09/18/21 09/18/21 [Lotrisone] Diazepam 10mg/Baclofen 1 supp VAGINAL HS 09/18/21 09/18/21 10mg/Gabapentin 300mg Vaginal Suppository Lutein 6mg Tab 2 tab PO DAILY 09/18/21 09/18/21 Magnesium Citrate 200 mg PO DAILY 09/18/21 09/18/21 Sennosides [Senna] 8.6 mg PO BID 09/18/21 09/18/21 buPROPion HCL [buPROPion HCL SR] 200 mg PO BID 09/18/21 09/18/21 lisinopriL 20 mg PO DAILY 09/18/21 09/18/21 polyethylene glycoL 3350 [Miralax] 17 gm PO DAILY 09/18/21 09/18/21 Allergies Allergy/AdvReac Type Severity Reaction Status Date / Time No Known Allergies Allergy Verified 09/18/21 14:55 Review of Systems ROS Statement: Those systems with pertinent positive or pertinent negative responses have been documented in the HPI. Review of Systems: CONST: Endorses fatigue EYES: Denies blurry vision ENT: Endorses nasal congestion, cough C/V: Denies Chest pain RESP: Denies shortness of breath GI: Denies abdominal pain : Denies dysuria SKIN: Denies rash. MSK: Denies joint pain. NEURO: Denies headache ROS Other: All systems not noted in ROS Statement are negative. Past Medical History Past Medical History: Hypertension, Pulmonary Embolus (PE) Additional Past Medical History / Comment(s): DDD. PE September 2019. History of gout. 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 History of Any Multi-Drug Resistant Organisms: None Reported Past Surgical History: Bariatric Surgery, Cholecystectomy, Hysterectomy Additional Past Surgical History / Comment(s): cataract sx. Gastric stapling in 1979. Cataract surgery 2015. Colonoscopy June 2020. DEDRA/BSO with umbilical hernia repair in September 2020. Past Psychological History: Anxiety, Depression Smoking Status: Never smoker Past Alcohol Use History: None Reported Past Drug Use History: None Reported - Past Family History Mother Family Medical History: Diabetes Mellitus, Myocardial Infarction ([place]) Father Family Medical History: Myocardial Infarction ([place]) Brother(s) Family Medical History: Myocardial Infarction ([place]) General Exam - General Exam Comments Initial Comments: General: Appears in no acute distress. HEAD: Normal with no signs of head trauma. EYES: PERRLA, EOMI, conjunctiva normal, no discharge. ENT: Hearing grossly intact, normal oropharynx. Moist mucous members. RESPIRATORY: Very mild rhonchi bilaterally. Not hypoxic. No increased work of breathing. C/V: Regular rate and rhythm. S1 and S2 auscultated, no edema, peripheral pulses 2+ and intact throughout ABD: Abd is soft, nontender, nondistended EXT: Normal range of motion, no obvious deformity SKIN: No rashes or lesions observed on exposed skin. NEURO: Alert and oriented 4. Limitations: no limitations Course Vital Signs 09/18/21 09/18/21 09/18/21 13:02 15:49 18:33 Temperature 97.9 F Pulse Rate 72 69 67 Respiratory 22 18 18 Rate Blood Pressure 122/76 133/84 146/90 O2 Sat by Pulse 95 96 93 L Oximetry Medical Decision Making - Medical Decision Making Based on the patient's presentation and physical exam, I'm concerned for COVID- 19 pneumonia. Swab was obtained in triage and was positive. Due to her having the mild rhonchorous wheezing breath sounds bilaterally we will obtain a chest x-ray as well as basic labs that she is concerned she is dehydrated. Patient was in agreement with this plan. I did discuss with her administration a monoclonal antibody therapy and she consented to treatment following laboratory studies. Patient's chest x-ray was consistent with bilateral pneumonia Covid 19. Laboratory studies were relatively unremarkable except for mild hyponatremia 132. On reevaluation come patient remains unchanged. At this time patient will be administered monoclonal antibody therapy. Following monoclonal and by therapy, she was observed and had no ALLERGIC reaction. Patient is stable for discharge home. We discussed quarantine. I instructed the patient to follow up with their PCP in the next 3 days. I explained that the patient should return to the emergency department if they experience any worsening symptoms. Strict return precautions were discussed with the patient. The patient expressed understanding of these instructions. I answered all questions that the patient had. The patient was discharged home in fair condition with their prescriptions and follow up information. - Lab Data Result diagrams: 09/18/21 13:53 09/18/21 13:53 Lab Results 09/18/21 09/18/21 09/18/21 Range/Units 13:08 13:53 13:53 WBC 5.9 (3.8-10.6) k/uL RBC 3.89 (3.80-5.40) m/uL Hgb 12.0 (11.4-16.0) gm/dL Hct 34.8 (34.0-46.0) % MCV 89.5 (80.0-100.0) fL MCH 30.8 (25.0-35.0) pg MCHC 34.4 (31.0-37.0) g/dL RDW 13.9 (11.5-15.5) % Plt Count 221 (150-450) k/uL MPV 8.3 Neutrophils % (Manual) 42 % Lymphocytes % (Manual) 35 % Monocytes % (Manual) 20 % Eosinophils % (Manual) 3 % Neutrophils # (Manual) 2.48 (1.3-7.7) k/uL Lymphocytes # (Manual) 2.07 (1.0-4.8) k/uL Monocytes # (Manual) 1.18 H (0-1.0) k/uL Eosinophils # (Manual) 0.18 (0-0.7) k/uL Nucleated RBCs 0 (0-0) /100 WBC Manual Slide Review Performed RBC Morphology Normal Sodium 132 L (137-145) mmol/L Potassium 3.9 (3.5-5.1) mmol/L Chloride 100 (98-107) mmol/L Carbon Dioxide 23 (22-30) mmol/L Anion Gap 9 mmol/L BUN 22 H (7-17) mg/dL Creatinine 0.96 (0.52-1.04) mg/dL Est GFR (CKD-EPI)AfAm 68 (>60 ml/min/1.73 sqM) Est GFR (CKD-EPI)NonAf 59 (>60 ml/min/1.73 sqM) Glucose 100 H (74-99) mg/dL Calcium 10.0 (8.4-10.2) mg/dL Magnesium 2.0 (1.6-2.3) mg/dL Coronavirus (PCR) Detected A (Not Detectd) Disposition Clinical Impression: Pneumonia due to COVID-19 virus Disposition: HOME SELF-CARE Condition: Fair Instructions (If sedation given, give patient instructions): Upper Respiratory Infection (ED), Coronavirus Disease 2019 (COVID-19) Is patient prescribed a controlled substance at d/c from ED?: No Referrals: Deejay Patel MD [Primary Care Provider] - 1-2 days
== END 2021-09-18 18:33 | disposition home or self-care (01) ==
LOC: EC 12:36
DX: U07.1 COVID-19 (principal); J12.82 Pneumonia due to coronavirus disease 2019; I10 Essential (primary) hypertension; F32.A Depression, unspecified; F41.9 Anxiety disorder, unspecified; M10.9 Gout, unspecified; Z86.711 Personal history of pulmonary embolism; Z79.01 Long term (current) use of anticoagulants; Z79.899 Other long term (current) drug therapy
CPT/HCPCS: 36415 ×2; 94640; 80061; 80053; 80048; 83735; 84443; 85025; 85027; 87635; 82306; 71046; 99284; Q0243

== ENCOUNTER → 2021-09-18 | Outpatient (CLI) | payer MEDICARE, OTHER ==
[2021-09-18 18:21] LABS: HCT 36.6 % (37.2-46.3); HGB 11.2 g/dL (12.0-15.0); MCH 28.6 pg (27.0-32.0); MCHC 30.6 g/dL (32.0-37.0); MCV 93.4 fL (80.0-97.0); Platelet Count 211 X 10*3/uL (140-440); RBC 3.92 X 10*6/uL (4.10-5.20); RDW 13.7 % (11.5-14.5); WBC 6.75 X 10*3/uL (4.50-10.00)
[2021-09-18 20:42] LABS: ALT 19 U/L (8-44); AST 29 U/L (13-35); Albumin/Globulin Ratio 1.37 (1.60-3.17); Alkaline Phosphatase 88 U/L (41-126); Blood Urea Nitrogen 20.3 mg/dL (9.0-27.0); Calcium 10.3 mg/dL (8.7-10.3); Carbon Dioxide 23.7 mmol/L (20.0-27.5); Chloride 99 mmol/L (96-109); Chol/HDL Ratio 2.65 Ratio; Globulin 2.9 g/dL (1.6-3.3); Glucose 101 mg/dL (70-110); LDL Cholesterol,Calculated 83.4 mg/dL (0.0-131.0); Magnesium 2.1 mg/dL (1.5-2.4); Non-African American GFR(CKD) 55.2 (60.0-200.0); Potassium 4.2 mmol/L (3.5-5.5); Sodium 138 mmol/L (135-145); Total Protein 6.9 g/dL (6.2-8.2)
== END | disposition home or self-care (01) ==
LOC: LABWHC1 11:50
PROVIDERS: ATTEND Internal Medicine Clinical Cardiac Electrophysiology
DX: I10 Essential (primary) hypertension (principal); E78.5 Hyperlipidemia, unspecified; E55.9 Vitamin D deficiency, unspecified
CPT/HCPCS: 36415; 80053; 80061; 82306; 83735; 84443; 85027

== ENCOUNTER → 2021-10-21 | Outpatient (CLI) | payer MEDICARE, OTHER ==
--- NOTE | 2021-10-22 07:44 | CT ---
EXAMINATION TYPE: CT abdomen pelvis w con DATE OF EXAM: 10/21/2021 COMPARISON: None HISTORY: abdominal pain CT DLP: 1969.2 mGycm CONTRAST: CT scan of the abdomen and pelvis is performed with Oral Contrast and with IV Contrast, patient injec thuy with 80cc mL of Isovue 300. FINDINGS: LUNG BASES-: No visible nodule. Patchy areas of basilar infiltrate. Correlate for recent Covid pneumo laurence LIVER/GB: No calcified gallstones. No space occupying hepatic lesion. Biliary tree is of normal ca liber. PANCREAS: No inflammation. No distinct mass. SPLEEN: No splenic enlargement. No lesion seen. ADRENALS: No nodule. No thickening. KIDNEYS/BLADDER: No hydronephrosis. No nephrolithiasis. Right renal cyst measuring 3.6 cm. Urinary bladder grossly unremarkable. BOWEL: Normal appendix. Midline ventral hernia contains a portion of transverse colon. No evidence f or incarceration or strangulation at this time. Normal bowel caliber. No inflammation. GENITAL ORGANS: No gross abnormality. LYMPH NODES: No greater than 1cm abdominal or pelvic lymph nodes are appreciated. AORTA: No significant abnormality. OSSEOUS STRUCTURES: Severe degenerative changes involving the lumbar spine. OTHER: No significant additional abnormality is seen. IMPRESSION: 1. Large ventral hernia containing a segment of colon. 2. Correlate for recent Covid 19 pneumonia
== END | disposition home or self-care (01) ==
LOC: RADCTMAIN 17:34
PROVIDERS: ATTEND Surgery Plastic and Reconstructive Surgery
DX: K43.9 Ventral hernia without obstruction or gangrene (principal)
CPT/HCPCS: 82565; 84520; 74177; 36415; Q9967

== ENCOUNTER → 2021-12-01 | Outpatient (CLI) | payer MEDICARE, OTHER ==
[2021-12-01 12:56] LABS: Partial Thromboplastin Time 26.4 sec (22.0-30.0); Prothrombin Time 10.5 sec (9.0-12.0)
[2021-12-01 19:19] LABS: HCT 37.2 % (37.2-46.3); HGB 11.7 g/dL (12.0-15.0); MCH 29.5 pg (27.0-32.0); MCHC 31.5 g/dL (32.0-37.0); MCV 93.7 fL (80.0-97.0); Mean Platelet Volume 10.4 fL (9.5-12.2); NRBC Per 100 WBC 0 /100 WBCS (0.0-0.0); Platelet Count 187 X 10*3/uL (140-440); RBC 3.97 X 10*6/uL (4.10-5.20); RDW 14.6 % (11.5-14.5); WBC 4.18 X 10*3/uL (4.50-10.00)
[2021-12-01 20:28] LABS: % Iron Saturation 11.31 (12.00-45.00); ALT 15 U/L (8-44); AST 17 U/L (13-35); African American GFR (CKD) 64.7 (60.0-200.0); Albumin 4.2 g/dL (3.8-4.9); Albumin/Globulin Ratio 1.68 (1.60-3.17); Alkaline Phosphatase 84 U/L (41-126); Calcium 10.5 mg/dL (8.7-10.3); Carbon Dioxide 20.8 mmol/L (20.0-27.5); Chloride 101 mmol/L (96-109); Ferritin 46.3 ng/mL (10.0-291.0); Globulin 2.5 g/dL (1.6-3.3); Glucose 96 mg/dL (70-110); Iron 50 ug/dL (50-170); Magnesium 1.8 mg/dL (1.5-2.4); Non-African American GFR(CKD) 55.8 (60.0-200.0); Phosphorus 3.5 mg/dL (2.4-5.1); Potassium 4.8 mmol/L (3.5-5.5); Sodium 138 mmol/L (135-145); Total Iron Binding Capacity 440 ug/dL (228-460); Total Protein 6.7 g/dL (6.2-8.2)
[2021-12-01 20:36] LABS: Chol/HDL Ratio 2.45 Ratio; LDL Cholesterol,Calculated 85.5 mg/dL (0.0-131.0); Prealbumin 24.9 mg/dL (18.0-42.0)
[2021-12-02 12:15] LABS: Coronavirus SARS CoV-2 Not Detected (Not Detected)
[2021-12-02 13:03] LABS: Zinc, Serum 75 ug/dL (60-130)
[2021-12-03 08:18] LABS: Vit B1(Thiamine) 69 ug/L (38-122)
[2021-12-03 10:44] LABS: Vitamin A 67 ug/dL (38-106)
== END | disposition home or self-care (01) ==
LOC: LABPAT 10:19
PROVIDERS: ATTEND Surgery Plastic and Reconstructive Surgery
DX: Z01.812 Encounter for preprocedural laboratory examination (principal); E66.01 Morbid (severe) obesity due to excess calories; E21.1 Secondary hyperparathyroidism, not elsewhere classified; D50.8 Other iron deficiency anemias; K90.89 Other intestinal malabsorption; E55.9 Vitamin D deficiency, unspecified; K74.1 Hepatic sclerosis; N19 Unspecified kidney failure; K50.90 Crohn's disease, unspecified, without complications
CPT/HCPCS: 84255; 84134; 84425; 80061; 80053; 82607; 82728; 82525; 82746; 83540; 83550; 83735; 84100; 84443; 84590; 84630; 85027; 85610; 85730; 82306; 83970; 83036; U0003; U0005

== ENCOUNTER → 2022-01-12 | Outpatient (CLI) | payer MEDICARE, OTHER ==
[2022-01-12 20:30] LABS: % Iron Saturation 10.61 (12.00-45.00); African American GFR (CKD) 54.7 (60.0-200.0); Albumin 4.6 g/dL (3.8-4.9); Albumin/Globulin Ratio 1.68 (1.60-3.17); Anion Gap 14.6 mmol/L (10.00-18.00); BUN/Creat Ratio 20.78 Ratio (12.00-20.00); Blood Urea Nitrogen 23.9 mg/dL (9.0-27.0); Calcium 11.2 mg/dL (8.7-10.3); Carbon Dioxide 24.3 mmol/L (20.0-27.5); Globulin 2.7 g/dL (1.6-3.3); Non-African American GFR(CKD) 47.2 (60.0-200.0); Potassium 4.7 mmol/L (3.5-5.5); Total Bilirubin 0.3 mg/dL (0.30-1.20); Total Protein 7.3 g/dL (6.2-8.2)
[2022-01-12 21:05] LABS: Basophils # (A) 0.02 X 10*3/uL (0.00-0.10); Basophils % (A) 0.3 %; Eosinophils # (A) 0.13 X 10*3/uL (0.04-0.35); Eosinophils % (A) 2.2 %; HCT 37.9 % (37.2-46.3); HGB 11.8 g/dL (12.0-15.0); Lymphocytes # (A) 2.43 X 10*3/uL (0.90-5.00); MCH 29.4 pg (27.0-32.0); MCHC 31.1 g/dL (32.0-37.0); MCV 94.5 fL (80.0-97.0); Mean Platelet Volume 10.8 fL (9.5-12.2); Monocytes # (A) 1.27 X 10*3/uL (0.20-1.00); Monocytes % (A) 21.9 %; NRBC Per 100 WBC 0 /100 WBCS (0.0-0.0); Neutrophils # (A) 1.88 X 10*3/uL (1.80-7.70); Neutrophils % (A) 32.6 %; Platelet Count 223 X 10*3/uL (140-440); RBC 4.01 X 10*6/uL (4.10-5.20); RDW 14.1 % (11.5-14.5); WBC 5.79 X 10*3/uL (4.50-10.00)
== END | disposition home or self-care (01) ==
LOC: LABWHC1 14:07
PROVIDERS: ATTEND Family Medicine
DX: I10 Essential (primary) hypertension (principal); D50.9 Iron deficiency anemia, unspecified; D51.9 Vitamin B12 deficiency anemia, unspecified
CPT/HCPCS: 36415; 80053; 82607; 83540; 83550; 84443; 85025

== ENCOUNTER → 2022-01-19 | Outpatient (CLI) | payer MEDICARE, OTHER ==
[2022-01-20 02:18] LABS: African American GFR (CKD) 55.8 (60.0-200.0); Albumin 4.6 g/dL (3.8-4.9); Albumin/Globulin Ratio 1.63 (1.60-3.17); Anion Gap 18.3 mmol/L (10.00-18.00); BUN/Creat Ratio 17.43 Ratio (12.00-20.00); Blood Urea Nitrogen 19.7 mg/dL (9.0-27.0); Calcium 11.2 mg/dL (8.7-10.3); Carbon Dioxide 21.6 mmol/L (20.0-27.5); Globulin 2.8 g/dL (1.6-3.3); Non-African American GFR(CKD) 48.2 (60.0-200.0); Total Bilirubin 0.4 mg/dL (0.30-1.20); Total Protein 7.4 g/dL (6.2-8.2)
[2022-01-20 02:31] LABS: Protein, Total 7.5 g/dL (6.2-8.2)
[2022-01-20 13:45] LABS: Albumin 4.14 g/dL (3.80-4.90); Gamma Globulin 1.01 g/dL (0.70-1.50)
== END | disposition home or self-care (01) ==
LOC: LABWHC1 16:06
PROVIDERS: ATTEND Family Medicine
DX: I10 Essential (primary) hypertension (principal); E83.52 Hypercalcemia
CPT/HCPCS: 36415; 80053; 82306; 83970; 84165; 86334

== ENCOUNTER → 2022-02-11 | Outpatient (CLI) | payer MEDICARE, OTHER ==
--- NOTE | 2022-02-11 15:51 | US ---
EXAMINATION TYPE: US kidneys/renal and bladder DATE OF EXAM: 02/11/2022 COMPARISON: CT dated 10/21/2021 CLINICAL HISTORY: N28.1 Acquired renal cyst. Acquired renal cyst. EXAM MEASUREMENTS: Right Kidney: 10.0 x 5.0 x 5.2 cm Left Kidney: 9.6 x 5.3 x 5.2 cm Right Kidney: Anechoic area seen measuring 3.3 x 2.3 x 1.8 cm. Likely parapelvic cyst, no evident hyd ronephrosis or pathologic calcification Left Kidney: No hydronephrosis or masses seen Bladder: Not fully distended, limited evaluation. Appears anechoic. Bilateral Jets seen: Yes IMPRESSION: There are some limitations. Simple cyst associated with the right kidney.
== END | disposition home or self-care (01) ==
LOC: RADUSWWP 15:01
PROVIDERS: ATTEND Family Medicine
DX: N28.1 Cyst of kidney, acquired (principal)
CPT/HCPCS: 76770

== ENCOUNTER → 2022-03-12 | Outpatient (CLI) | payer MEDICARE, OTHER ==
[2022-03-12 23:16] LABS: African American GFR (CKD) 64.6 (60.0-200.0); Anion Gap 17.7 mmol/L (10.00-18.00); BUN/Creat Ratio 18.88 Ratio (12.00-20.00); Blood Urea Nitrogen 18.8 mg/dL (9.0-27.0); Calcium 10.8 mg/dL (8.7-10.3); Carbon Dioxide 24.7 mmol/L (20.0-27.5); Non-African American GFR(CKD) 55.7 (60.0-200.0); Phosphorus 3.2 mg/dL (2.4-5.1); Potassium 4.1 mmol/L (3.5-5.5)
== END | disposition home or self-care (01) ==
LOC: LABWHC1 16:17
PROVIDERS: ATTEND Family Medicine
DX: E83.52 Hypercalcemia (principal); N17.9 Acute kidney failure, unspecified; B37.2 Candidiasis of skin and nail
CPT/HCPCS: 36415; 80048; 82164; 83036; 83883; 84100; 86038; 86039

== ENCOUNTER 2022-03-30 09:04 | Inpatient (IN) | payer MEDICARE, OTHER ==
[2022-03-30] MEDS ORDERED: SODIUM CHLORIDE 0.9% 1,000 ML IV STA (09:27)
[2022-03-30] MEDS ORDERED: ONDANSETRON 4 MG/2 ML VIAL IVP STA (09:47)
--- NOTE | 2022-03-30 09:58 | ED ---
Abdominal Pain HPI - General Chief Complaint: Abdominal Pain Stated Complaint: abd pain Time Seen by Provider: 03/30/22 09:20 Source: patient, RN notes reviewed Mode of arrival: wheelchair Limitations: no limitations - History of Present Illness Initial Comments: This a 72-year-old female presents emergency Department chief complaint of abdominal discomfort, nausea, diarrhea. Patient states symptoms started over 24 hours ago. Patient states she had some lower abdominal pain to mid abdomen she states that has actually improved. She continues to feel nauseated she initially had diarrhea in which she ended up taking Imodium. Patient does admit that a few months ago she had surgery by Dr. Hummel for multiple incisional hernias. Patient denies any known fever or chills she states that at home: 19 test which was negative. Patient denies chest pain shortness breath. - Related Data Home Medications Medication Instructions Recorded Confirmed Allopurinol [Zyloprim] 100 mg PO DAILY 07/29/20 03/30/22 Apixaban [Eliquis] 5 mg PO BID 07/29/20 03/30/22 clonazePAM [KlonoPIN] 0.5 mg PO HS 07/29/20 03/30/22 Furosemide [Lasix] 40 mg PO DAILY 08/26/21 03/30/22 Pregabalin [Lyrica] 75 mg PO BID 08/26/21 03/30/22 Diazepam 10mg/Baclofen 1 supp VAGINAL HS PRN 09/18/21 03/30/22 10mg/Gabapentin 300mg Vaginal Suppository Lutein 6mg Tab 12 tab PO DAILY 09/18/21 03/30/22 Sennosides [Senna] 8.6 mg PO BID 09/18/21 03/30/22 buPROPion HCL [buPROPion HCL SR] 200 mg PO BID 09/18/21 03/30/22 lisinopriL [Prinivil] 20 mg PO DAILY 09/18/21 03/30/22 Cholecalciferol (Vitamin D3) 125 mcg PO DAILY 12/02/21 03/30/22 [Vitamin D3 (125 MCG = 5,000 IU)] Magnesium 400 mg PO DAILY 12/02/21 03/30/22 Pravastatin Sodium [Pravachol] 20 mg PO DAILY 12/02/21 03/30/22 Clotrimazole/Betameth Cream 1 applic TOPICAL BID 03/30/22 03/30/22 [Lotrisone] Cyanocobalamin (Vitamin B-12) 1,000 mcg PO DAILY 03/30/22 03/30/22 [Vitamin B-12] Ferrous Sulfate [Feosol] 325 mg PO DAILY 03/30/22 03/30/22 Potassium Chloride [Klor-Con 20] 20 meq PO DAILY 03/30/22 03/30/22 traMADol HCL [Ultram] 50 mg PO TID PRN 03/30/22 03/30/22 Allergies Allergy/AdvReac Type Severity Reaction Status Date / Time No Known Allergies Allergy Verified 03/30/22 10:59 Review of Systems ROS Statement: Those systems with pertinent positive or pertinent negative responses have been documented in the HPI. ROS Other: All systems not noted in ROS Statement are negative. Past Medical History Past Medical History: Hypertension, Pulmonary Embolus (PE) Additional Past Medical History / Comment(s): DDD. PE September 2019. hx gout. leiden factor V, rich foot edema,, new rich leg edema( pt to call [facility]), constipation, diverticulosis, eczema, severe urinary incontinece- uses brief, pt states dx with COVID 09/18/21 History of Any Multi-Drug Resistant Organisms: None Reported Past Surgical History: Bariatric Surgery, Cholecystectomy, Hysterectomy Additional Past Surgical History / Comment(s): cataract sx. Gastric stapling in 1979. Cataract surgery 2015. Colonoscopy June 2020. DEDRA/BSO with umbilical hernia repair in September 2020. Past Psychological History: Anxiety, Depression Smoking Status: Never smoker Past Alcohol Use History: None Reported Past Drug Use History: None Reported - Past Family History Mother Family Medical History: Myocardial Infarction ([place]) Father Family Medical History: Myocardial Infarction ([place]) Brother(s) Family Medical History: Deep Vein Thrombosis (DVT), Myocardial Infarction ([place]), Pulmonary Embolus General Exam Limitations: no limitations General appearance: alert, in no apparent distress Head exam: Present: atraumatic, normocephalic, normal inspection Eye exam: Present: normal appearance, PERRL, EOMI. Absent: scleral icterus, conjunctival injection, periorbital swelling ENT exam: Present: normal exam, normal oropharynx, mucous membranes moist Neck exam: Present: normal inspection. Absent: tenderness, meningismus, lymphadenopathy Respiratory exam: Present: normal lung sounds bilaterally. Absent: respiratory distress, wheezes, rales, rhonchi, stridor Cardiovascular Exam: Present: normal rhythm, tachycardia, normal heart sounds. Absent: systolic murmur, diastolic murmur, rubs, gallop, clicks GI/Abdominal exam: Present: soft, normal bowel sounds. Absent: distended, tenderness, guarding, rebound, rigid Back exam: Absent: CVA tenderness (R), CVA tenderness (L) Neurological exam: Present: alert Skin exam: Present: warm, dry, intact, normal color. Absent: rash Course Vital Signs 03/30/22 09:15 Temperature 98.2 F Pulse Rate 127 H Respiratory 18 Rate Blood Pressure 141/83 O2 Sat by Pulse 97 Oximetry Medical Decision Making - Medical Decision Making CT shows evidence of severe acute diverticulitis, no definite perforation or abscess others fluid collection possible from prior surgery. Patient be admitted for IV antibiotics, surgical evaluation - Lab Data Result diagrams: 03/30/22 09:47 03/30/22 09:47 Lab Results 03/30/22 03/30/22 03/30/22 Range/Units 09:47 09:47 09:47 WBC 9.3 (3.8-10.6) k/uL RBC 4.00 (3.80-5.40) m/uL Hgb 12.2 (11.4-16.0) gm/dL Hct 37.2 (34.0-46.0) % MCV 92.9 (80.0-100.0) fL MCH 30.5 (25.0-35.0) pg MCHC 32.9 (31.0-37.0) g/dL RDW 14.6 (11.5-15.5) % Plt Count 191 (150-450) k/uL MPV 7.6 Neutrophils % Not Reportable Neutrophils % (Manual) 54 % Lymphocytes % Not Reportable Lymphocytes % (Manual) 25 % Monocytes % Not Reportable Monocytes % (Manual) 21 % Eosinophils % Not Reportable Basophils % Not Reportable Neutrophils # Not Reportable Neutrophils # (Manual) 5.02 (1.3-7.7) k/uL Lymphocytes # Not Reportable Lymphocytes # (Manual) 2.33 (1.0-4.8) k/uL Monocytes # Not Reportable Monocytes # (Manual) 1.95 H (0-1.0) k/uL Eosinophils # Not Reportable Basophils # Not Reportable Nucleated RBCs 0 (0-0) /100 WBC Manual Slide Review Performed Sodium 135 L (137-145) mmol/L Potassium 4.1 (3.5-5.1) mmol/L Chloride 96 L (98-107) mmol/L Carbon Dioxide 28 (22-30) mmol/L Anion Gap 11 mmol/L BUN 13 (7-17) mg/dL Creatinine 0.83 (0.52-1.04) mg/dL Est GFR (CKD-EPI)AfAm 81 (>60 ml/min/1.73 sqM) Est GFR (CKD-EPI)NonAf 70 (>60 ml/min/1.73 sqM) Glucose 109 H (74-99) mg/dL Plasma Lactic Acid Reji (0.7-2.0) mmol/L Calcium 9.6 (8.4-10.2) mg/dL Total Bilirubin 1.3 (0.2-1.3) mg/dL AST 38 H (14-36) U/L ALT 20 (4-34) U/L Alkaline Phosphatase 87 (38-126) U/L Total Protein 7.2 (6.3-8.2) g/dL Albumin 4.0 (3.5-5.0) g/dL Amylase 68 (30-110) U/L Lipase 67 (23-300) U/L Urine Color Light Yellow Urine Appearance Clear (Clear) Urine pH 7.0 (5.0-8.0) Ur Specific [place] 1.005 (1.001-1.035) Urine Protein Negative (Negative) Urine Glucose (UA) Negative (Negative) Urine Ketones Trace H (Negative) Urine Blood Negative (Negative) Urine Nitrite Negative (Negative) Urine Bilirubin Negative (Negative) Urine Urobilinogen <2.0 (<2.0) mg/dL Ur Leukocyte Esterase Large H (Negative) Urine RBC 2 (0-5) /hpf Urine WBC 31 H (0-5) /hpf Ur Squamous Epith Cells <1 (0-4) /hpf Amorphous Sediment Rare H (None) /hpf Urine Bacteria Rare H (None) /hpf 03/30/22 Range/Units 09:47 WBC (3.8-10.6) k/uL RBC (3.80-5.40) m/uL Hgb (11.4-16.0) gm/dL Hct (34.0-46.0) % MCV (80.0-100.0) fL MCH (25.0-35.0) pg MCHC (31.0-37.0) g/dL RDW (11.5-15.5) % Plt Count (150-450) k/uL MPV Neutrophils % Neutrophils % (Manual) % Lymphocytes % Lymphocytes % (Manual) % Monocytes % Monocytes % (Manual) % Eosinophils % Basophils % Neutrophils # Neutrophils # (Manual) (1.3-7.7) k/uL Lymphocytes # Lymphocytes # (Manual) (1.0-4.8) k/uL Monocytes # Monocytes # (Manual) (0-1.0) k/uL Eosinophils # Basophils # Nucleated RBCs (0-0) /100 WBC Manual Slide Review Sodium (137-145) mmol/L Potassium (3.5-5.1) mmol/L Chloride (98-107) mmol/L Carbon Dioxide (22-30) mmol/L Anion Gap mmol/L BUN (7-17) mg/dL Creatinine (0.52-1.04) mg/dL Est GFR (CKD-EPI)AfAm (>60 ml/min/1.73 sqM) Est GFR (CKD-EPI)NonAf (>60 ml/min/1.73 sqM) Glucose (74-99) mg/dL Plasma Lactic Acid Reji 1.1 (0.7-2.0) mmol/L Calcium (8.4-10.2) mg/dL Total Bilirubin (0.2-1.3) mg/dL AST (14-36) U/L ALT (4-34) U/L Alkaline Phosphatase (38-126) U/L Total Protein (6.3-8.2) g/dL Albumin (3.5-5.0) g/dL Amylase (30-110) U/L Lipase (23-300) U/L Urine Color Urine Appearance (Clear) Urine pH (5.0-8.0) Ur Specific [place] (1.001-1.035) Urine Protein (Negative) Urine Glucose (UA) (Negative) Urine Ketones (Negative) Urine Blood (Negative) Urine Nitrite (Negative) Urine Bilirubin (Negative) Urine Urobilinogen (<2.0) mg/dL Ur Leukocyte Esterase (Negative) Urine RBC (0-5) /hpf Urine WBC (0-5) /hpf Ur Squamous Epith Cells (0-4) /hpf Amorphous Sediment (None) /hpf Urine Bacteria (None) /hpf Disposition Clinical Impression: Acute diverticulitis, Abdominal fluid collection, UTI (urinary tract infection) Disposition: ADMITTED IP TO THIS HOSP Condition: Fair Referrals: Olga Andersen MD [Primary Care Provider] - 1-2 days Time of Disposition: 11:22
[2022-03-30 10:10] LABS: Calcium 9.6 mg/dL (8.4-10.2); Total Bilirubin 1.3 mg/dL (0.2-1.3); Total Protein 7.2 g/dL (6.3-8.2)
[2022-03-30 10:11] LABS: Potassium 4.1 mmol/L (3.5-5.1)
[2022-03-30 10:16] LABS: HCT 37.2 % (34.0-46.0); HGB 12.2 gm/dL (11.4-16.0); MCH 30.5 pg (25.0-35.0); MCHC 32.9 g/dL (31.0-37.0); MCV 92.9 fL (80.0-100.0); Mean Platelet Volume 7.6; Platelet Count 191 k/uL (150-450); RDW 14.6 % (11.5-15.5); WBC 9.3 k/uL (3.8-10.6)
[2022-03-30 10:35] LABS: Amorphous Sediment,Urine Rare /hpf; Appearance,Urine Clear (Clear); Bacteria,Urine Rare /hpf; Bilirubin,Urine Negative (Negative); Blood,Urine Negative (Negative); Color,Urine Light Yellow; Glucose,Urine (UA) Negative (Negative); Ketones,Urine Trace (Negative); Leukocyte Esterase,Urine Large (Negative); Nitrite,Urine Negative (Negative); Protein,Urine Negative (Negative); RBC,Urine 2 /hpf (0-5); Specific Gravity,Urine 1.005 (1.001-1.035); Squamous Epithelial Cell,Urine <1 /hpf (0-4); Urobilinogen,Urine <2.0 mg/dL (<2.0); WBC,Urine 31 /hpf (0-5)
[2022-03-30 10:46] LABS: Lymphocytes # (M) 2.33 k/uL (1.0-4.8); Monocytes # (M) 1.95 k/uL (0-1.0); Neutrophils # (M) 5.02 k/uL (1.3-7.7); Neutrophils % (M) 54 %; Nucleated Red Blood Cells 0 /100 WBC (0-0); Total Cells Counted 100
--- NOTE | 2022-03-30 11:11 | CT ---
EXAMINATION TYPE: CT abdomen pelvis w con DATE OF EXAM: 03/30/2022 COMPARISON: CT dated 10/21/2021 HISTORY: Abdominal pain CT DLP: 2247.2 mGycm Automated exposure control for dose reduction was used. TECHNIQUE: Helical acquisition of images was performed from the lung bases through the pelvis. CONTRAST: Performed without Oral Contrast and with IV Contrast, patient injected with 100 mL of Isovue 300. FINDINGS: LUNG BASES: No significant abnormality is appreciated. LIVER/GB: Previous cholecystectomy. Suspected hepatic steatosis. PANCREAS: No significant abnormality is seen. SPLEEN: No significant abnormality is seen. ADRENALS: No significant abnormality is seen. KIDNEYS: Focal cortical defect is seen at the posterior aspect of the left kidney. Simple cyst is see n at the lower pole of the right kidney. FREE AIR: No free air is visualized. RETROPERITONEAL ADENOPATHY: None visualized PELVIC ADENOPATHY: No pathology enlarged pelvic lymph nodes. OSSEOUS STRUCTURES: Marked degenerative changes of the lumbar spine with fused L4 and L5 vertebrae. Osteopenia. BOWEL: Severe acute diverticulitis involving the posterior aspect of the sigmoid colon with colonic wall thickening, surrounding fat stranding, reactive fluid and peritoneal reflection thickening. The inflammatory changes are inseparable from the vagina vault and the superior aspect of the urinary mala dder as well as the adjacent small bowel. This could progress to fistulous communication if untreated . No definite abscess formation or signs of perforation. Other scattered uncomplicated colonic divert iculosis. No small bowel obstruction. Previous gastric surgery. Unremarkable duodenum. Sharp angulati on of the small bowel in the pelvis anteriorly, possibly due to a underlying adhesions. OTHER: Arterial atherosclerotic calcifications. Anterior abdominal wall subcutaneous fluid collection measuring up to 5.3 cm, possibly represents postoperative seroma. Abscess can't be totally excluded. IMPRESSION: Severe acute diverticulitis involving the posterior aspect of the sigmoid colon as described above. N o signs of perforation or abscess formation. Anterior abdominal wall fluid collection measuring 5.3 cm as described above which could represent a postoperative seroma. Abscess cannot be excluded, please correlate clinically. Other findings as desc ribed above.
[2022-03-30] MEDS ORDERED: PIPERACILLIN-TAZOBACTAM 3.375 GM in SODIUM CHLORIDE 0.9% 100 ML IVPB STA (11:22)
[2022-03-30] MEDS ORDERED: ONDANSETRON 4 MG/2 ML VIAL IVP PRN (11:23)
[2022-03-30] MEDS ORDERED: HYDROcodone/APAP 5-325MG 1 EACH TAB PO PRN (11:23)
[2022-03-30] MEDS ORDERED: HYDROmorphone 0.5 MG/0.5 ML SYRINGE IVP PRN (11:23)
[2022-03-30] MEDS ORDERED: NALOXONE 0.4 MG/ML 1 ML VIAL IV PRN (11:23)
[2022-03-30] MEDS: SODIUM CHLORIDE 0.9% 1,000 ML IV SCH (12:11)
[2022-03-30] MEDS ORDERED: traMADol 50 MG TAB PO PRN (12:26)
[2022-03-30] MEDS ORDERED: clonazePAM 0.5 MG TAB PO STA (12:27)
[2022-03-30] MEDS ORDERED: APIXABAN 5 MG TAB PO SCH (21:00)
[2022-03-30] MEDS: PIPERACILLIN-TAZOBACTAM 3.375 GM in SODIUM CHLORIDE 0.9% 100 ML IVPB SCH (22:05)
[2022-03-30] MEDS: PREGABALIN 75 MG CAP PO SCH (22:06)
[2022-03-30] MEDS: clonazePAM 0.5 MG TAB PO SCH (22:06)
[2022-03-30] MEDS: SENNOSIDES 8.6 MG TAB PO SCH (22:08)
--- NOTE | 2022-03-30 22:40 | P.GSCN ---
History of Present Illness Consult date: 03/30/22 History of present illness: Patient seen and evaluated. She has recent history of ventral hernia repair. Patient reports developing lower abdominal pain approximately 2 days prior. The recent events. CT of the abdomen pelvis and the pelvic reviewed demonstrating diverticulitis. No free air. Recommend IV antibiotics. Nothing by mouth for now. May start clear liquid diet once abdominal pain improves. Blood thinner held due to risk of surgery and increased risk for bleeding with diverticulitis. Past Medical History Past Medical History: Hypertension, Pulmonary Embolus (PE) Additional Past Medical History / Comment(s): DDD. PE September 2019. hx gout. leiden factor V, rich foot edema,, new rich leg edema( pt to call [facility]), constipation, diverticulosis, eczema, severe urinary incontinece- uses brief, pt states dx with COVID 09/18/21 History of Any Multi-Drug Resistant Organisms: None Reported Past Surgical History: Bariatric Surgery, Cholecystectomy, Hysterectomy Additional Past Surgical History / Comment(s): cataract sx. Gastric stapling in 1979. Cataract surgery 2015. Colonoscopy June 2020. DEDRA/BSO with umbilical hernia repair in September 2020. Past Psychological History: Anxiety, Depression Smoking Status: Never smoker Past Alcohol Use History: None Reported Past Drug Use History: None Reported - Past Family History Mother Family Medical History: Myocardial Infarction ([place]) Father Family Medical History: Myocardial Infarction ([place]) Brother(s) Family Medical History: Deep Vein Thrombosis (DVT), Myocardial Infarction ([place]), Pulmonary Embolus Medications and Allergies Home Medications Medication Instructions Recorded Confirmed Type Allopurinol [Zyloprim] 100 mg PO DAILY 07/29/20 03/30/22 History Apixaban [Eliquis] 5 mg PO BID 07/29/20 03/30/22 History clonazePAM [KlonoPIN] 0.5 mg PO HS 07/29/20 03/30/22 History Furosemide [Lasix] 40 mg PO DAILY 08/26/21 03/30/22 History Pregabalin [Lyrica] 75 mg PO BID 08/26/21 03/30/22 History Diazepam 10mg/Baclofen 1 supp VAGINAL HS PRN 09/18/21 03/30/22 History 10mg/Gabapentin 300mg Vaginal Suppository Lutein 6mg Tab 12 tab PO DAILY 09/18/21 03/30/22 History Sennosides [Senna] 8.6 mg PO BID 09/18/21 03/30/22 History buPROPion HCL [buPROPion HCL SR] 200 mg PO BID 09/18/21 03/30/22 History lisinopriL [Prinivil] 20 mg PO DAILY 09/18/21 03/30/22 History Cholecalciferol (Vitamin D3) 125 mcg PO DAILY 12/02/21 03/30/22 History [Vitamin D3 (125 MCG = 5,000 IU)] Magnesium 400 mg PO DAILY 12/02/21 03/30/22 History Pravastatin Sodium [Pravachol] 20 mg PO DAILY 12/02/21 03/30/22 History Clotrimazole/Betameth Cream 1 applic TOPICAL BID 03/30/22 03/30/22 History [Lotrisone] Cyanocobalamin (Vitamin B-12) 1,000 mcg PO DAILY 03/30/22 03/30/22 History [Vitamin B-12] Ferrous Sulfate [Feosol] 325 mg PO DAILY 03/30/22 03/30/22 History Potassium Chloride [Klor-Con 20] 20 meq PO DAILY 03/30/22 03/30/22 History traMADol HCL [Ultram] 50 mg PO TID PRN 03/30/22 03/30/22 History Allergies Allergy/AdvReac Type Severity Reaction Status Date / Time No Known Allergies Allergy Verified 03/30/22 10:59 Surgical - Exam Vital Signs Temp Pulse Resp BP Pulse Ox 98.2 F 127 H 18 141/83 97 03/30/22 09:15 03/30/22 09:15 03/30/22 09:15 03/30/22 09:15 03/30/22 09:15 Results - Labs 03/30/22 09:47 03/30/22 09:47 Abnormal Lab Results - Last 24 Hours (Table) 03/30/22 03/30/22 03/30/22 Range/Units 09:47 09:47 09:47 Monocytes # (Manual) 1.95 H (0-1.0) k/uL Sodium 135 L (137-145) mmol/L Chloride 96 L (98-107) mmol/L Glucose 109 H (74-99) mg/dL AST 38 H (14-36) U/L Urine Ketones Trace H (Negative) Ur Leukocyte Esterase Large H (Negative) Urine WBC 31 H (0-5) /hpf Amorphous Sediment Rare H (None) /hpf Urine Bacteria Rare H (None) /hpf Microbiology - Last 24 Hours (Table) 03/30/22 09:47 Urine Culture - Preliminary Urine,Voided Diabetes panel 03/30/22 Range/Units 09:47 Sodium 135 L (137-145) mmol/L Potassium 4.1 (3.5-5.1) mmol/L Chloride 96 L (98-107) mmol/L Carbon Dioxide 28 (22-30) mmol/L BUN 13 (7-17) mg/dL Creatinine 0.83 (0.52-1.04) mg/dL Glucose 109 H (74-99) mg/dL Calcium 9.6 (8.4-10.2) mg/dL AST 38 H (14-36) U/L ALT 20 (4-34) U/L Alkaline Phosphatase 87 (38-126) U/L Total Protein 7.2 (6.3-8.2) g/dL Albumin 4.0 (3.5-5.0) g/dL Calcium panel 03/30/22 Range/Units 09:47 Calcium 9.6 (8.4-10.2) mg/dL Albumin 4.0 (3.5-5.0) g/dL Pituitary panel 03/30/22 Range/Units 09:47 Sodium 135 L (137-145) mmol/L Potassium 4.1 (3.5-5.1) mmol/L Chloride 96 L (98-107) mmol/L Carbon Dioxide 28 (22-30) mmol/L BUN 13 (7-17) mg/dL Creatinine 0.83 (0.52-1.04) mg/dL Glucose 109 H (74-99) mg/dL Calcium 9.6 (8.4-10.2) mg/dL Adrenal panel 03/30/22 Range/Units 09:47 Sodium 135 L (137-145) mmol/L Potassium 4.1 (3.5-5.1) mmol/L Chloride 96 L (98-107) mmol/L Carbon Dioxide 28 (22-30) mmol/L BUN 13 (7-17) mg/dL Creatinine 0.83 (0.52-1.04) mg/dL Glucose 109 H (74-99) mg/dL Calcium 9.6 (8.4-10.2) mg/dL Total Bilirubin 1.3 (0.2-1.3) mg/dL AST 38 H (14-36) U/L ALT 20 (4-34) U/L Alkaline Phosphatase 87 (38-126) U/L Total Protein 7.2 (6.3-8.2) g/dL Albumin 4.0 (3.5-5.0) g/dL
[2022-03-31] MEDS: buPROPion SR 100 MG TABLET.ER PO SCH ×3 (00:07→20:51)
[2022-03-31] MEDS: SODIUM CHLORIDE 0.9% 1,000 ML IV SCH ×2 (04:45→09:25)
[2022-03-31] MEDS: PIPERACILLIN-TAZOBACTAM 3.375 GM in SODIUM CHLORIDE 0.9% 100 ML IVPB SCH ×3 (04:56→20:50)
[2022-03-31] MEDS: CHOLECALCIFEROL 125 MCG (5000 IU) TABLET PO SCH (07:51)
[2022-03-31] MEDS: FERROUS SULFATE 325 MG TAB PO SCH (07:52)
[2022-03-31] MEDS: SENNOSIDES 8.6 MG TAB PO SCH ×2 (07:52→20:52)
[2022-03-31] MEDS: CYANOCOBALAMIN 500 MCG TAB PO SCH (07:52)
[2022-03-31] MEDS: PREGABALIN 75 MG CAP PO SCH ×2 (07:52→20:52)
[2022-03-31] MEDS: MAGNESIUM OXIDE 400 MG TAB PO SCH (07:52)
[2022-03-31] MEDS: PRAVASTATIN SODIUM 20 MG TAB PO SCH (07:52)
[2022-03-31] MEDS: POTASSIUM CHLORIDE ER 20 MEQ TAB.ER PO SCH (07:53)
[2022-03-31] MEDS: allopurinoL 100 MG TAB PO SCH (07:53)
[2022-03-31] MEDS: lisinopriL 20 MG TAB PO SCH (07:53)
[2022-03-31] MEDS: FUROSEMIDE 40 MG TAB PO SCH (07:53)
[2022-03-31] MEDS ORDERED: LUTEIN 6 MG PO SCH (09:00)
[2022-03-31] MEDS: APIXABAN 5 MG TAB PO SCH ×2 (09:24→20:52)
--- NOTE | 2022-03-31 10:29 | P.HPIM ---
History of Present Illness H&P Date: 03/31/22 HISTORY OF PRESENT ILLNESS This is a 72-year-old female patient of Dr. Cisneros with past medical history of pulmonary embolism on eliquis, hypertension, hyperlipidemia, chronic anemia, chronic gout, obstructive sleep apnea with CPAP, recurrent depression and generalized anxiety disorder. Patient states that 2 nights ago she developed severe mid and lower abdominal pain and started dry heaving and then several times later she started having diarrhea in the morning. She had a temperature of 101. Patient states that her last colonoscopy was Dr. Robbins done in 2019 at [facility]. She denies any history of diverticulitis. Patient had a robotic-assisted laparoscopic reduction of incarcerated transverse colon, repair of recurrent incarcerated incisional ventral hernia, lysis of adhesions on 12/04/1909/12/[address] Hummel. Patient came into [facility] emergency center for evaluation. Patient was found to be afebrile, heart rate 127, respiratory rate 18, blood pressure 141/83, pulse ox 97% on room air. CAT scan of the abdomen and pelvis with contrast revealed severe acute diverticulitis involving the posterior aspect of the sigmoid colon. No signs of perforation or abscess formation. Anterior abdominal wall fluid collection higinio uring 5.3 cm could represent a postoperative seroma WBC normal at 9.3, hemoglobin 12.2 and platelets 191. Sodium 135, potassium 4.1, chloride 96, CO2 28, BUN 13 and creatinine 0.83. Blood sugar 109. AST 38 otherwise liver function tests were normal. Amylase and lipase normal. Urinalysis revealed leukoesterase large, WBCs 31. Lactic acid 1.1 and urine culture was obtained. Patient is status post 1 L of IV fluids, started on Zosyn and admitted to the MedSur floor, seen by Dr. Hummel. Patient is currently nothing by mouth. REVIEW OF SYSTEMS Constitutional: No fever, no chills, no night sweats. No weight change. No weakness, fatigue or lethargy. No daytime sleepiness. EENT: No headache. No blurred vision or double vision, no loss of vision. No loss of Hearing, no ringing in the ears, no dizziness. No nasal drainage or congestion. No epistaxis. No sore throat. Lungs: No shortness of breath, cough, no sputum production. No wheezing. Cardiovascular: No chest pain, no lower extremity edema. No palpitations. No paroxysmal nocturnal dyspnea. No orthopnea. No lightheadedness or dizziness. No syncopal episodes. Abdominal: Reports abdominal pain. Reports nausea, Reports vomiting. Reports diarrhea. No constipation. No bloody or tarry stools. No loss of appetite. Genitourinary: No dysuria, increased frequency, urgency. No urinary retention. Musculoskeletal: No myalgias. No muscle weakness, no gait dysfunction, no frequent falls. No back pain. No neck pain. Integumentary: No wounds, no lesions. No rash or pruritus. No unusual bruisi ng. No change in hair or nails. Neurologic: No aphasia. No facial droop. No change in mentation. No head injury. No headache. No paralysis. No paresthesia. Psychiatric: No depression. No anxiety. No mood swings. Endocrine: No abnormal blood sugars. No weight change. No excessive sweating or thirst. No cold intolerance. SOCIAL HISTORY Patient is a lifelong nonsmoker, no alcohol use, marijuana use or illicit drug use. Patient has a CPAP at home. No nebulizer oxygen. She does not use any 8 for ambulation. FAMILY HISTORY Father at age 42 from a myocardial infarction. Mother at age 60 from myocardial infarction. Patient has a total of 8 siblings and 2 have from myocardial infarction. Patient has one son age 46 with no major medical problems. PHYSICAL EXAMINATION Gen: This is a 72-year-old female. She is sitting up in a recliner and appears to be comfortable and in no acute distress. HEENT: Head is atraumatic, normocephalic. Pupils equal, round. Sclerae is anicteric. Oral mucous membranes are somewhat dry. NECK: Supple. No JVD. No lymphadenopathy. No thyromegaly. LUNGS: Clear to auscultation. No wheezes or rhonchi. No intercostal retractions. HEART: Regular rate and rhythm. No murmur. ABDOMEN: Soft. Bowel sounds are present. No masses. Mild tenderness to the mid and lower quadrants. EXTREMITIES: No pedal edema. No calf tenderness. NEUROLOGICAL: Patient is awake, alert and oriented x3. Cranial nerves 2 through 12 are grossly intact. ASSESSMENT AND PLAN 1. Sepsis secondary to acute diverticulitis. Continue patient on 0.9 normal saline at 75 mL per hour, Zosyn 3.375 g IV piggyback every 8 hours, Zofran as needed for nausea and vomiting and Dilaudid as needed for pain, [place] as needed for pain, consult with Gen. surgery appreciated. Patient is currently nothing by mouth. 2. Possible postop seroma to ventral hernia site. General surgery is following. 3. Pulmonary embolism. Patient will be resumed on eliquis 5 mg twice daily. 4. Hypertension. Continue lisinopril 20 mg daily, Lasix 40 mg daily. 5. Hyperlipidemia. Continue pravastatin 20 mg daily. 6. Chronic anemia. Continue ferrous sulfate 325 mg daily. 7. Chronic gout. Continue allopurinol 100 mg daily. 8. Obstructive sleep apnea. Continue CPAP. 9. Recurrent depression and generalized anxiety disorder. Continue bupropion 200 mg twice daily, Clonopin 0.5 mg at bedtime. 10. Chronic pain. Continue Lyrica 75 mg twice daily. 11. GI prophylaxis. Protonix. 12. DVT prophylaxis. Eliquis. Patient will be admitted to the hospital for a minimum of 2 night stay. DISCHARGE PLAN Most likely return home. Impression and plan of care have been directed as dictated by the signing physician. Roula Bull nurse practitioner acting as scribe for signing physician. Past Medical History Past Medical History: Hypertension, Pulmonary Embolus (PE) Additional Past Medical History / Comment(s): DDD. PE September 2019. hx gout. leiden factor V, rich foot edema,, new rich leg edema( pt to call [facility]), constipation, diverticulosis, eczema, severe urinary incontinece- uses brief, pt states dx with COVID 09/18/21 History of Any Multi-Drug Resistant Organisms: None Reported Past Surgical History: Bariatric Surgery, Cholecystectomy, Hysterectomy Additional Past Surgical History / Comment(s): cataract sx. Gastric stapling in 1979. Cataract surgery 2015. Colonoscopy June 2020. DEDRA/BSO with umbilical hernia repair in September 2020. Past Psychological History: Anxiety, Depression Smoking Status: Never smoker Past Alcohol Use History: None Reported Past Drug Use History: None Reported - Past Family History Mother Family Medical History: Myocardial Infarction ([place]) Father Family Medical History: Myocardial Infarction ([place]) Brother(s) Family Medical History: Deep Vein Thrombosis (DVT), Myocardial Infarction (MO), Pulmonary Embolus Medications and Allergies Home Medications Medication Instructions Recorded Confirmed Type Allopurinol [Zyloprim] 100 mg PO DAILY 07/29/20 03/30/22 History Apixaban [Eliquis] 5 mg PO BID 07/29/20 03/30/22 History clonazePAM [KlonoPIN] 0.5 mg PO HS 07/29/20 03/30/22 History Furosemide [Lasix] 40 mg PO DAILY 08/26/21 03/30/22 History Pregabalin [Lyrica] 75 mg PO BID 08/26/21 03/30/22 History Diazepam 10mg/Baclofen 1 supp VAGINAL HS PRN 09/18/21 03/30/22 History 10mg/Gabapentin 300mg Vaginal Suppository Lutein 6mg Tab 12 tab PO DAILY 09/18/21 03/30/22 History Sennosides [Senna] 8.6 mg PO BID 09/18/21 03/30/22 History buPROPion HCL [buPROPion HCL SR] 200 mg PO BID 09/18/21 03/30/22 History lisinopriL [Prinivil] 20 mg PO DAILY 09/18/21 03/30/22 History Cholecalciferol (Vitamin D3) 125 mcg PO DAILY 12/02/21 03/30/22 History [Vitamin D3 (125 MCG = 5,000 IU)] Magnesium 400 mg PO DAILY 12/02/21 03/30/22 History Pravastatin Sodium [Pravachol] 20 mg PO DAILY 12/02/21 03/30/22 History Clotrimazole/Betameth Cream 1 applic TOPICAL BID 03/30/22 03/30/22 History [Lotrisone] Cyanocobalamin (Vitamin B-12) 1,000 mcg PO DAILY 03/30/22 03/30/22 History [Vitamin B-12] Ferrous Sulfate [Feosol] 325 mg PO DAILY 03/30/22 03/30/22 History Potassium Chloride [Klor-Con 20] 20 meq PO DAILY 03/30/22 03/30/22 History traMADol HCL [Ultram] 50 mg PO TID PRN 03/30/22 03/30/22 History Allergies Allergy/AdvReac Type Severity Reaction Status Date / Time No Known Allergies Allergy Verified 03/30/22 10:59 Physical Exam Vitals: Vital Signs Temp Pulse Pulse Resp BP BP Pulse Ox 03/31/22 07:35 98.5 F 79 17 134/71 94 L 03/31/22 01:57 97.6 F 68 17 111/62 99 03/30/22 20:00 16 03/30/22 19:50 98.2 F 69 16 130/70 98 03/30/22 18:01 98.2 F 78 18 143/73 94 L 03/30/22 17:14 84 18 134/74 96 03/30/22 14:53 80 18 131/62 97 03/30/22 11:18 76 18 97 03/30/22 09:15 98.2 F 127 H 18 141/83 97 Intake and Output 03/30/22 03/31/22 03/31/22 22:59 06:59 14:59 Intake Total 1150 Balance 1150 Intake: Intake, IV Titration 1140 Amount Piperacillin-Tazobactam 3 200 .375 gm In Sodium Chloride 0.9% 100 ml @ 200 mls/hr IVPB ONCE STA Rx#:[id number] Sodium Chloride 0.9% 1, 940 000 ml @ 75 mls/hr IV . [id number] [facility] Rx#:[id number] Oral 10 Other: # Voids 4 # Bowel Movements 1 Results CBC & Chem 7: 03/30/22 09:47 03/30/22 09:47 Labs: Abnormal Lab Results - Last 24 Hours (Table) 03/30/22 03/30/22 03/30/22 Range/Units 09:47 09:47 09:47 Monocytes # (Manual) 1.95 H (0-1.0) k/uL Sodium 135 L (137-145) mmol/L Chloride 96 L (98-107) mmol/L Glucose 109 H (74-99) mg/dL AST 38 H (14-36) U/L Urine Ketones Trace H (Negative) Ur Leukocyte Esterase Large H (Negative) Urine WBC 31 H (0-5) /hpf Amorphous Sediment Rare H (None) /hpf Urine Bacteria Rare H (None) /hpf Microbiology - Last 24 Hours (Table) 03/30/22 09:47 Urine Culture - Preliminary Urine,Voided Thrombosis Risk Factor Assmnt - Choose All That Apply Any of the Below Risk Factors Present?: No Other Risk Factors: Yes Each Risk Factor Represents 2 Points: Age 61-74 years Each Risk Factor Represents 3 Points: History of DVT/PE Other congenital or acquired thrombophilia - If yes, enter type in comment: No Thrombosis Risk Factor Assessment Total Risk Factor Score: 5 Thrombosis Risk Factor Assessment Level: High Risk
--- NOTE | 2022-03-31 15:16 | P.PN ---
Subjective Progress Note Date: 03/31/22 CHIEF COMPLAINT: Abdominal pain HISTORY OF PRESENT ILLNESS: Surgical service following regards to patient's diverticulitis. Patient reports that her abdominal pain has resolved. She denies any nausea or vomiting. Diet advanced to clear liquids for lunch. Patient did tolerate this. Afebrile. Tachycardia resolved No new labs for today. White count yesterday was 9.3. Medicine service has resumed patient's Eliquis. PHYSICAL EXAM: VITAL SIGNS: Reviewed GENERAL: Well-developed in no acute distress. HEENT: No sclera icterus. Extraocular movements grossly intact. Moist buccal mucosa. Head is atraumatic, normocephalic. Hears conversational speech. No nasal drainage. NECK: Supple without lymphadenopathy. CHEST: Non-labored respirations and equal bilateral excursions. CARDIOVASCULAR: Palpable 2+ radial pulses. ABDOMEN: Soft. Nondistended. Nontender. MUSCULOSKELETAL: No clubbing or cyanosis. NEUROLOGIC: No focal or lateralizing signs. Cranial nerves II through XII grossly intact. PSYCH: Appropriate affect. Alert and oriented to person, place and time. SKIN: Well perfused. Good skin turgor. ASSESSMENT: 1. Acute sigmoid diverticulitis 2. History of ventral hernia repair 3. History of PE PLAN: -Advance diet to full liquid for dinner and then low fiber for breakfast in the morning -Continue antibiotics -Continue supportive care -Anticipate possible discharge tomorrow Physician Senior Communications Specialist note has been reviewed by physician. Signing provider agrees with the documented findings, assessment, and plan of care. CHIEF COMPLAINT: Diverticulitis HISTORY OF PRESENT ILLNESS: The patient is a 72-year-old female admitted for diverticulitis. Initially complained of lower abdominal pain. Today her abdominal pain is completely resolved. She is sitting up in chair. ROS: No reports of nausea and vomiting. No fevers or chills. No new chest pain. No productive sputum PHYSICAL EXAM: VITAL SIGNS: Reviewed CONSTITUTIONAL: Well developed and in no acute distress. EYES: Conjuctivae without sclera icterus. Extraocular movements grossly intact. HEAD, EARS, NOSE, THROAT: Moist buccal mucosa. Head is atraumatic, normocephalic. Hears conversational speech. No nasal drainage. RESPIRATORY: Non-labored respirations and equal bilateral excursions. CARDIOVASCULAR: Palpable 2+ radial pulses. ABDOMEN: No peritonitis. Protuberant. MUSCULOSKELETAL: No gross deformity of the lower extremities noted. No clubbing. No cyanosis. SKIN: Good skin turgor. Well perfused. NEUROLOGIC: Cranial nerves II through XII grossly intact. No focal or lateralizing signs. PSYCH: Appropriate affect. Alert and oriented to person, place and time. CLINICAL LABS: Reviewed. WBC normal on admission. ASSESSMENT: 1. Diverticulitis PLAN: 1. May start clear liquid diet and advance to low fiber diet for breakfast is tolerating. 2. Recommend continue oral antibiotics upon discharge Objective - Vital Signs Vital signs: Vital Signs Temp 98.0 F 03/31/22 14:00 Pulse 64 03/31/22 14:00 Resp 17 03/31/22 14:00 BP 102/64 03/31/22 14:00 Pulse Ox 97 03/31/22 14:00 FiO2 Intake & Output 03/30/22 03/31/22 03/31/22 18:59 06:59 18:59 Intake Total 1150 Balance 1150 Weight 117.934 kg Intake: Intake, IV Titration 1140 Amount Piperacillin-Tazobactam 3 200 .375 gm In Sodium Chloride 0.9% 100 ml @ 200 mls/hr IVPB ONCE STA Rx#:[id number] Sodium Chloride 0.9% 1, 940 000 ml @ 75 mls/hr IV . [id number] [facility] Rx#:[id number] Oral 10 Other: # Voids 4 # Bowel Movements 1 - Labs CBC & Chem 7: 03/30/22 09:47 03/30/22 09:47 Labs: Microbiology - Last 24 Hours (Table) 03/30/22 11:20 Blood Culture - Preliminary Blood No Growth after 24 hours 03/30/22 12:00 Blood Culture Gram Stain - Preliminary Blood 03/30/22 12:00 Blood Culture - Final Blood 03/30/22 09:47 Urine Culture - Preliminary Urine,Voided
[2022-03-31] MEDS: clonazePAM 0.5 MG TAB PO SCH (20:51)
[2022-04-01] MEDS: SODIUM CHLORIDE 0.9% 1,000 ML IV SCH (03:30)
[2022-04-01] MEDS: PIPERACILLIN-TAZOBACTAM 3.375 GM in SODIUM CHLORIDE 0.9% 100 ML IVPB SCH ×3 (04:35→19:59)
[2022-04-01] MEDS: PREGABALIN 75 MG CAP PO SCH ×2 (08:57→19:59)
[2022-04-01] MEDS: MAGNESIUM OXIDE 400 MG TAB PO SCH (08:57)
[2022-04-01] MEDS: CHOLECALCIFEROL 125 MCG (5000 IU) TABLET PO SCH (08:57)
[2022-04-01] MEDS: buPROPion SR 100 MG TABLET.ER PO SCH ×2 (08:57→19:59)
[2022-04-01] MEDS: FUROSEMIDE 40 MG TAB PO SCH (08:57)
[2022-04-01] MEDS: SENNOSIDES 8.6 MG TAB PO SCH ×2 (08:57→19:59)
[2022-04-01] MEDS: POTASSIUM CHLORIDE ER 20 MEQ TAB.ER PO SCH (08:58)
[2022-04-01] MEDS: CYANOCOBALAMIN 500 MCG TAB PO SCH (08:58)
[2022-04-01] MEDS: APIXABAN 5 MG TAB PO SCH ×2 (08:58→19:59)
[2022-04-01] MEDS: PRAVASTATIN SODIUM 20 MG TAB PO SCH (08:58)
[2022-04-01] MEDS: FERROUS SULFATE 325 MG TAB PO SCH (08:58)
[2022-04-01] MEDS: lisinopriL 20 MG TAB PO SCH (08:58)
[2022-04-01] MEDS: allopurinoL 100 MG TAB PO SCH (08:58)
--- NOTE | 2022-04-01 09:52 | P.PN ---
Subjective Progress Note Date: 04/01/22 HISTORY OF PRESENT ILLNESS This is a 72-year-old female patient of Dr. Cisneros with past medical history of pulmonary embolism on eliquis, hypertension, hyperlipidemia, chronic anemia, c hronic gout, obstructive sleep apnea with CPAP, recurrent depression and generalized anxiety disorder. Patient states that 2 nights ago she developed severe mid and lower abdominal pain and started dry heaving and then several times later she started having diarrhea in the morning. She had a temperature of 101. Patient states that her last colonoscopy was Dr. Robbins done in 2019 at [facility]. She denies any history of diverticulitis. Patient had a robotic-assisted laparoscopic reduction of incarcerated transverse colon, repair of recurrent incarcerated incisional ventral hernia, lysis of adhesions on 12/04/1909/12/[address] Hummel. Patient came into [facility] emergency center for evaluation. Patient was found to be afebrile, heart rate 127, respiratory rate 18, blood pressure 141/83, pulse ox 97% on room air. CAT scan of the abdomen and pelvis with contrast revealed severe acute diverticulitis involving the posterior aspect of the sigmoid colon. No signs of perforation or abscess formation. Anterior abdominal wall fluid collection measuring 5.3 cm could represent a postoperative seroma WBC normal at 9.3, hemoglobin 12.2 and platelets 191. Sodium 135, potassium 4.1, chloride 96, CO2 28, BUN 13 and creatinine 0.83. Blood sugar 109. AST 38 otherwise liver function tests were normal. Amylase and lipase normal. Urinalysis revealed leukoesterase large, WBCs 31. Lactic acid 1.1 and urine culture was obtained. Patient is status post 1 L of IV fluids, started on Zosyn and admitted to the MedSur floor, seen by Dr. Hummel. Patient is currently nothing by mouth. 04/01: Urine culture is positive for gram-negative bacilli. Blood culture 1 is showing Streptococcus species and 1 blood culture showing no growth at 24 hours. Repeat blood culture and blood work ordered for today. Positive blood culture not consistent with urine culture. Patient is currently covered by IV Zosyn. Patient has been afebrile, heart rate 73, blood pressure 130/81, pulse ox 97% on room air. General surgery has advanced diet to full liquids for dinner he ate last night and low fiber for breakfast this morning patient is tolerating well, no nausea or vomiting. She states she is feeling much better today. She has had a bowel movement. IV fluids will be discontinued. Discharge plan is for home tomorrow. REVIEW OF SYSTEMS Constitutional: No fever, no chills, no night sweats. No weight change. No weakness, fatigue or lethargy. No daytime sleepiness. EENT: No headache. No blurred vision or double vision, no loss of vision. No loss of Hearing, no ringing in the ears, no dizziness. No nasal drainage or congestion. No epistaxis. No sore throat. Lungs: No shortness of breath, cough, no sputum production. No wheezing. Cardiovascular: No chest pain, no lower extremity edema. No palpitations. No paroxysmal nocturnal dyspnea. No orthopnea. No lightheadedness or dizziness. No syncopal episodes. Abdominal: Reports abdominal pain, improved. Denies nausea, denies vomiting. Denies diarrhea. No constipation. No bloody or tarry stools. No loss of appetite. Genitourinary: No dysuria, increased frequency, urgency. No urinary retention. Musculoskeletal: No myalgias. No muscle weakness, no gait dysfunction, no frequent falls. No back pain. No neck pain. Integumentary: No wounds, no lesions. No rash or pruritus. No unusual bruising. No change in hair or nails. Neurologic: No aphasia. No facial droop. No change in mentation. No head injury. No headache. No paralysis. No paresthesia. Psychiatric: No depression. No anxiety. No mood swings. Endocrine: No abnormal blood sugars. No weight change. No excessive sweating or thirst. No cold intolerance. PHYSICAL EXAMINATION Gen: This is a 72-year-old female. She is sitting up in a recliner and appears to be comfortable and in no acute distress. HEENT: Head is atraumatic, normocephalic. Pupils equal, round. Sclerae is anicteric. NECK: Supple. No JVD. No lymphadenopathy. No thyromegaly. LUNGS: Clear to auscultation. No wheezes or rhonchi. No intercostal retractions. HEART: Regular rate and rhythm. No murmur. ABDOMEN: Soft. Bowel sounds are present. No masses. Minimal tenderness to the mid and lower quadrants. EXTREMITIES: No pedal edema. No calf tenderness. NEUROLOGICAL: Patient is awake, alert and oriented x3. Cranial nerves 2 through 12 are grossly intact. ASSESSMENT AND PLAN 1. Sepsis secondary to acute diverticulitis. Discontinue IV fluids, continue Zosyn 3.375 g IV piggyback every 8 hours, Zofran as needed for nausea and vomiting and Dilaudid as needed for pain, [place] as needed for pain, consult with Gen. surgery appreciated. Diet advanced to low fiber this morning. 2. Possible postop seroma to ventral hernia site. General surgery is following. 3. Pulmonary embolism. Patient will be resumed on eliquis 5 mg twice daily. 4. Hypertension. Continue lisinopril 20 mg daily, Lasix 40 mg daily. 5. Hyperlipidemia. Continue pravastatin 20 mg daily. 6. Chronic anemia. Continue ferrous sulfate 325 mg daily. 7. Chronic gout. Continue allopurinol 100 mg daily. 8. Obstructive sleep apnea. Continue CPAP. 9. Recurrent depression and generalized anxiety disorder. Continue bupropion 200 mg twice daily, Clonopin 0.5 mg at bedtime. 10. Chronic pain. Continue Lyrica 75 mg twice daily. 11. GI prophylaxis. Protonix. 12. DVT prophylaxis. Eliquis. 13. Positive blood culture in consistent with urine culture, possible contamination, continue to monitor and repeat blood culture ordered. Patient will be admitted to the hospital for a minimum of 2 night stay. DISCHARGE PLAN Home on Tuesday. Impression and plan of care have been directed as dictated by the signing physician. Roula Bull nurse practitioner acting as scribe for signing physician. Objective - Vital Signs Vital signs: Vital Signs Temp 98.2 F 04/01/22 02:00 Pulse 63 04/01/22 02:00 Resp 16 04/01/22 02:00 BP 125/66 04/01/22 02:00 Pulse Ox 96 04/01/22 02:00 FiO2 Intake & Output 03/31/22 04/01/22 04/01/22 18:59 06:59 18:59 Intake Total 540 Balance 540 Intake: Oral 540 Other: # Voids 6 2 # Bowel Movements 1 - Labs CBC & Chem 7: 03/30/22 09:47 03/30/22 09:47 Labs: Microbiology - Last 24 Hours (Table) 03/30/22 12:00 Blood Culture Gram Stain - Preliminary Blood Blood Culture - Preliminary Streptococcus species 03/30/22 09:47 Urine Culture - Preliminary Urine,Voided Gram Neg Bacilli 03/30/22 11:20 Blood Culture - Preliminary Blood No Growth after 24 hours 03/30/22 12:00 Blood Culture - Final Blood
[2022-04-01 11:10] VITALS: BMI 40.7
[2022-04-01 12:15] LABS: ALT 19 U/L (4-34); AST 26 U/L (14-36); African American GFR (CKD) 78 (>60 ml/min/1.73 sqM); Albumin 3.8 g/dL (3.5-5.0); Albumin/Globulin Ratio 1.4; Alkaline Phosphatase 85 U/L (38-126); Anion Gap 12 mmol/L; Blood Urea Nitrogen 13 mg/dL (7-17); Calcium 9.7 mg/dL (8.4-10.2); Carbon Dioxide 24 mmol/L (22-30); Chloride 103 mmol/L (98-107); Globulin 2.7 g/dL; Glucose 91 mg/dL (74-99); Non-African American GFR(CKD) 67 (>60 ml/min/1.73 sqM); Potassium 3.8 mmol/L (3.5-5.1); Sodium 139 mmol/L (137-145); Total Bilirubin 0.6 mg/dL (0.2-1.3); Total Protein 6.5 g/dL (6.3-8.2)
[2022-04-01 12:21] LABS: HCT 35.5 % (34.0-46.0); HGB 11.3 gm/dL (11.4-16.0); MCH 30.2 pg (25.0-35.0); MCV 94.6 fL (80.0-100.0); Mean Platelet Volume 8.1; Platelet Count 209 k/uL (150-450); RBC 3.75 m/uL (3.80-5.40); RDW 14.4 % (11.5-15.5); WBC 4.8 k/uL (3.8-10.6)
--- NOTE | 2022-04-01 12:50 | P.PN ---
Subjective Progress Note Date: 04/01/22 CHIEF COMPLAINT: Abdominal pain HISTORY OF PRESENT ILLNESS: Surgical service following regards to patient's diverticulitis. Patient denies any abdominal pain. She tolerated low fiber diet this morning. Denies any nausea or vomiting. She reports having a bowel movement. Denies any blood in her stool. She was found to have evidence of a UTI. She does have 1 positive blood culture. And concerns for possible contamination. Medicine service has ordered a repeat blood culture. And they are recommending patient states one more night. Afebrile WBC 4.8 hemoglobin 11.3 platelets 209 sodium 139 potassium 3.8 creatinine 0.86 PHYSICAL EXAM: VITAL SIGNS: Reviewed GENERAL: Well-developed in no acute distress. HEENT: No sclera icterus. Extraocular movements grossly intact. Moist buccal mucosa. Head is atraumatic, normocephalic. Hears conversational speech. No nasal drainage. NECK: Supple without lymphadenopathy. CHEST: Non-labored respirations and equal bilateral excursions. CARDIOVASCULAR: Palpable 2+ radial pulses. ABDOMEN: Soft. Nondistended. Nontender. MUSCULOSKELETAL: No clubbing or cyanosis. NEUROLOGIC: No focal or lateralizing signs. Cranial nerves II through XII scarlet sly intact. PSYCH: Appropriate affect. Alert and oriented to person, place and time. SKIN: Well perfused. Good skin turgor. ASSESSMENT: 1. Acute sigmoid diverticulitis 2. History of ventral hernia repair 3. History of PE 4. UTI PLAN: -Continue low fiber diet -Continue antibiotics -Continue supportive care Physician Clinical Services Manager note has been reviewed by physician. Signing provider agrees with the documented findings, assessment, and plan of care. Patient seen and evaluated. She denies abdominal pain. Patient being held by medicine team for further workup. She is tolerating a low fiber diet. Separately patient reports history of elevated high calcium. During hospitalization calcium level unremarkable. Otherwise, stable for discharge from surgical standpoint. Will follow-up as outpatient. Objective - Vital Signs Vital signs: Vital Signs Temp 98.5 F 04/01/22 08:00 Pulse 73 04/01/22 08:00 Resp 16 04/01/22 08:00 BP 138/81 04/01/22 08:00 Pulse Ox 97 04/01/22 08:00 FiO2 Intake & Output 03/31/22 04/01/22 04/01/22 18:59 06:59 18:59 Intake Total 540 Balance 540 Weight 117.934 kg Intake: Oral 540 Other: # Voids 6 2 # Bowel Movements 1 - Labs CBC & Chem 7: 04/01/22 11:12 04/01/22 11:12 Labs: Abnormal Lab Results - Last 24 Hours (Table) 04/01/22 Range/Units 11:12 RBC 3.75 L (3.80-5.40) m/uL Hgb 11.3 L (11.4-16.0) gm/dL Microbiology - Last 24 Hours (Table) 03/30/22 12:00 Blood Culture Gram Stain - Preliminary Blood Blood Culture - Preliminary Streptococcus species 03/30/22 09:47 Urine Culture - Preliminary Urine,Voided Gram Neg Bacilli 03/30/22 11:20 Blood Culture - Preliminary Blood No Growth after 24 hours 03/30/22 12:00 Blood Culture - Final Blood
--- NOTE | 2022-04-01 13:25 | XR ---
EXAMINATION TYPE: XR elbow complete RT DATE OF EXAM: 04/01/2022 COMPARISON: None HISTORY: Trauma, pain TECHNIQUE: 3 view right elbow FINDINGS: Radius aligns normally with the humerus. Joint spaces appear preserved. Anterior fat pad is normal. Normal position of the posterior fat-pad which is normal. Olecranon spur is present. No acute fractures are evident. Follow-up exams can be performed as clinically indicated. IMPRESSION: 1. No acute or subacute osseous abnormality right elbow.
[2022-04-01] MEDS: clonazePAM 0.5 MG TAB PO SCH (19:59)
[2022-04-02 01:25] VITALS: RESP 18
[2022-04-02] MEDS: PIPERACILLIN-TAZOBACTAM 3.375 GM in SODIUM CHLORIDE 0.9% 100 ML IVPB SCH (04:04)
[2022-04-02 07:59] VITALS: BP 127/75; PULSE 75; TEMP 97.5
[2022-04-02] MEDS: CHOLECALCIFEROL 125 MCG (5000 IU) TABLET PO SCH (08:13)
[2022-04-02] MEDS: FERROUS SULFATE 325 MG TAB PO SCH (08:13)
[2022-04-02] MEDS: CYANOCOBALAMIN 500 MCG TAB PO SCH (08:13)
[2022-04-02] MEDS: APIXABAN 5 MG TAB PO SCH (08:13)
[2022-04-02] MEDS: FUROSEMIDE 40 MG TAB PO SCH (08:13)
[2022-04-02] MEDS: MAGNESIUM OXIDE 400 MG TAB PO SCH (08:13)
[2022-04-02] MEDS: buPROPion SR 100 MG TABLET.ER PO SCH (08:13)
[2022-04-02] MEDS: POTASSIUM CHLORIDE ER 20 MEQ TAB.ER PO SCH (08:13)
[2022-04-02] MEDS: allopurinoL 100 MG TAB PO SCH (08:13)
[2022-04-02] MEDS: PRAVASTATIN SODIUM 20 MG TAB PO SCH (08:13)
[2022-04-02] MEDS: SENNOSIDES 8.6 MG TAB PO SCH (08:13)
[2022-04-02] MEDS: lisinopriL 20 MG TAB PO SCH (08:14)
[2022-04-02] MEDS: PREGABALIN 75 MG CAP PO SCH (08:14)
--- NOTE | 2022-04-02 08:19 | P.DS ---
Providers Date of admission: 03/30/22 11:18 Expected date of discharge: 04/02/22 Attending physician: Luis Adames Consults: 03/30/22 11:24 Consult Physician Urgent Consulting Provider: Lee Ann Hummel Consult Reason/Comments: Acute diverticulitis, fluid collection Do you want consulting provider notified?: Yes Primary care physician: [facility] Course: HISTORY OF PRESENT ILLNESS This is a 72-year-old female patient of Dr. Cisneros with past medical history of pulmonary embolism on eliquis, hypertension, hyperlipidemia, chronic anemia, chronic gout, obstructive sleep apnea with CPAP, recurrent depression and generalized anxiety disorder. Patient states that 2 nights ago she developed severe mid and lower abdominal pain and started dry heaving and then several times later she started having diarrhea in the morning. She had a temperature of 101. Patient states that her last colonoscopy was Dr. Robbins done in 2019 at [facility]. She denies any history of diverticulitis. Patient had a robotic-assisted laparoscopic reduction of incarcerated transverse colon, repair of recurrent incarcerated incisional ventral hernia, lysis of adhesions on 12/04/1909/12/[address] Hummel. Patient came into [facility] emergency center for evaluation. Patient was found to be afebrile, heart rate 127, respiratory rate 18, blood pressure 141/83, pulse ox 97% on room air. CAT scan of the abdomen and pelvis with contrast revealed severe acute diverticulitis involving the posterior aspect of the sigmoid colon. No signs of perforation or abscess formation. Anterior abdominal wall fluid collection measuring 5.3 cm could represent a postoperative seroma WBC normal at 9.3, hemoglobin 12.2 and platelets 191. Sodium 135, potassium 4.1, chloride 96, CO2 28, BUN 13 and creatinine 0.83. Blood sugar 109. AST 38 otherwise liver function tests were normal. Amylase and lipase normal. Urinalysis revealed leukoesterase large, WBCs 31. Lactic acid 1.1 and urine culture was obtained. Patient is status post 1 L of IV fluids, started on Zosyn and admitted to the [facility] floor, seen by Dr. Hummel. Patient is currently nothing by mouth. 04/01: Urine culture is positive for gram-negative bacilli. Blood culture 1 is showing Streptococcus species and 1 blood culture showing no growth at 24 hours. Repeat blood culture and blood work ordered for today. Positive blood culture not consistent with urine culture. Patient is currently covered by IV Zosyn. Patient has been afebrile, heart rate 73, blood pressure 130/81, pulse ox 97% on room air. General surgery has advanced diet to full liquids for dinner he ate last night and low fiber for breakfast this morning patient is tolerating well, no nausea or vomiting. She states she is feeling much better today. She has had a bowel movement. IV fluids will be discontinued. Discharge plan is for home tomorrow. 04/02:patient is tolerating regular diet with no nausea or vomiting. She has had a bowel movement. Urine culture has been finalized with E. coli pansensitive. Blood culture finalized with nonhemolytic strep. Repeat blood cultures status received.this is thought to be a contamination. Patient will be discharged home today in stable condition. ASSESSMENT AND PLAN 1. Sepsis secondary to acute diverticulitis. 2. Possible postop seroma to ventral hernia site. 3. Pulmonary embolism. 4. Hypertension. 5. Hyperlipidemia. 6. Chronic anemia. 7. Chronic gout. 8. Obstructive sleep apnea. 9. Recurrent depression and generalized anxiety disorder. 10. Chronic pain. 11. Acute E. coli urinary tract infection 12. Positive blood culture, possible contamination DISCHARGE PLAN Home Greater than 35 minutes was utilized and coordinating patient's discharge. Impression and plan of care have been directed as dictated by the signing physician. Roula Bull nurse practitioner acting as scribe for signing physician. Patient Condition at Discharge: Good Plan - Discharge Summary Discharge Rx Participant: Yes New Discharge Prescriptions: New Ciprofloxacin HCl [Cipro] 500 mg PO Q12HR #14 tablet Continue Apixaban [Eliquis] 5 mg PO BID Allopurinol [Zyloprim] 100 mg PO DAILY clonazePAM [KlonoPIN] 0.5 mg PO HS Pregabalin [Lyrica] 75 mg PO BID Furosemide [Lasix] 40 mg PO DAILY Sennosides [Senna] 8.6 mg PO BID Lutein 6mg Tab 12 tab PO DAILY Diazepam 10mg/Baclofen 10mg/Gabapentin 300mg Vaginal Suppository 1 supp VAGINAL HS PRN PRN Reason: Pain Pravastatin Sodium [Pravachol] 20 mg PO DAILY Cholecalciferol (Vitamin D3) [Vitamin D3 (125 MCG = 5,000 IU)] 125 mcg PO DAILY Potassium Chloride [Klor-Con 20] 20 meq PO DAILY Ferrous Sulfate [Iron (65 MG Elemental)] 325 mg PO DAILY traMADol HCL [Ultram] 50 mg PO TID PRN PRN Reason: Pain Cyanocobalamin (Vitamin B-12) [Vitamin B-12] 1,000 mcg PO DAILY buPROPion HCL [buPROPion HCL SR] 200 mg PO BID lisinopriL [Prinivil] 20 mg PO DAILY Magnesium 400 mg PO DAILY Clotrimazole/Betameth Cream [Lotrisone] 1 applic TOPICAL BID Discharge Medication List Allopurinol [Zyloprim] 100 mg PO DAILY 07/29/20 [History] Apixaban [Eliquis] 5 mg PO BID 07/29/20 [History] clonazePAM [KlonoPIN] 0.5 mg PO HS 07/29/20 [History] Furosemide [Lasix] 40 mg PO DAILY 08/26/21 [History] Pregabalin [Lyrica] 75 mg PO BID 08/26/21 [History] Diazepam 10mg/Baclofen 10mg/Gabapentin 300mg Vaginal Suppository 1 supp VAGINAL HS PRN 09/18/21 [History] Lutein 6mg Tab 12 tab PO DAILY 09/18/21 [History] Sennosides [Senna] 8.6 mg PO BID 09/18/21 [History] buPROPion HCL [buPROPion HCL SR] 200 mg PO BID 09/18/21 [History] lisinopriL [Prinivil] 20 mg PO DAILY 09/18/21 [History] Cholecalciferol (Vitamin D3) [Vitamin D3 (125 MCG = 5,000 IU)] 125 mcg PO DAILY 12/02/21 [History] Magnesium 400 mg PO DAILY 12/02/21 [History] Pravastatin Sodium [Pravachol] 20 mg PO DAILY 12/02/21 [History] Clotrimazole/Betameth Cream [Lotrisone] 1 applic TOPICAL BID 03/30/22 [History] Cyanocobalamin (Vitamin B-12) [Vitamin B-12] 1,000 mcg PO DAILY 03/30/22 [History] Ferrous Sulfate [Iron (65 MG Elemental)] 325 mg PO DAILY 03/30/22 [History] Potassium Chloride [Klor-Con 20] 20 meq PO DAILY 03/30/22 [History] traMADol HCL [Ultram] 50 mg PO TID PRN 03/30/22 [History] Ciprofloxacin HCl [Cipro] 500 mg PO Q12HR #14 tablet 04/02/22 [Rx] Follow up Appointment(s)/Referral(s): Olga Andersen MD [Primary Care Provider] - 1 Week (office closed at time of discharge. Please call to schedule appointment ) Discharge Disposition: HOME SELF-CARE
--- NOTE | 2022-04-02 14:49 | P.PN ---
Subjective Progress Note Date: 04/02/22 CHIEF COMPLAINT: Abdominal pain HISTORY OF PRESENT ILLNESS: Surgical service following regards to patient's diverticulitis. Patient denies any abdominal pain. She tolerated low fiber diet. Afebrile PHYSICAL EXAM: VITAL SIGNS: Reviewed GENERAL: Well-developed in no acute distress. HEENT: No sclera icterus. Extraocular movements grossly intact. Moist buccal mucosa. Head is atraumatic, normocephalic. Hears conversational speech. No nasal drainage. NECK: Supple without lymphadenopathy. CHEST: Non-labored respirations and equal bilateral excursions. CARDIOVASCULAR: Palpable 2+ radial pulses. ABDOMEN: Soft. Nondistended. Nontender. MUSCULOSKELETAL: No clubbing or cyanosis. NEUROLOGIC: No focal or lateralizing signs. Cranial nerves II through XII grossly intact. PSYCH: Appropriate affect. Alert and oriented to person, place and time. SKIN: Well perfused. Good skin turgor. ASSESSMENT: 1. Acute sigmoid diverticulitis 2. History of ventral hernia repair 3. History of PE 4. UTI PLAN: -Patient can be discharged from surgical standpoint -Continue low fiber diet -Continue antibiotics at discharge per medicine service Physician Cafeteria Attendant note has been reviewed by physician. Signing provider agrees with the documented findings, assessment, and plan of care. Objective - Vital Signs Vital signs: Vital Signs Temp 97.5 F L 04/02/22 07:58 Pulse 75 04/02/22 07:58 Resp 18 04/02/22 07:58 BP 127/75 04/02/22 07:58 Pulse Ox 95 04/02/22 07:58 FiO2 Intake & Output 04/01/22 04/02/22 04/02/22 18:59 06:59 18:59 Intake Total 1080 480 Balance 1080 480 Weight 117.934 kg Intake: Oral 1080 480 Other: Voiding Method Toilet # Voids 3 3 - Labs CBC & Chem 7: 04/01/22 11:12 04/01/22 11:12 Labs: Microbiology - Last 24 Hours (Table) 03/30/22 11:20 Blood Culture - Preliminary Blood No Growth after 72 hours 03/30/22 12:00 Blood Culture Gram Stain - Final Blood Blood Culture - Final Non Hemolytic Strep 04/01/22 11:12 Blood Culture - Preliminary Blood No Growth after 24 hours 03/30/22 09:47 Urine Culture - Final Urine,Voided Escherichia coli
== END 2022-04-02 11:20 | disposition home or self-care (01) | DRG 872 ==
LOC: EC 09:04 → 4SSUR 11:18
PROVIDERS: ADMIT Internal Medicine Geriatric Medicine; ATTEND Internal Medicine Geriatric Medicine
DX: A41.9 Sepsis, unspecified organism (principal); K57.32 Diverticulitis of large intestine without perforation or abscess without bleeding; N39.0 Urinary tract infection, site not specified; R18.8 Other ascites; F33.9 Major depressive disorder, recurrent, unspecified; L76.34 Postprocedural seroma of skin and subcutaneous tissue following other procedure; D68.51 Activated protein C resistance; B96.20 Unspecified Escherichia coli [E. coli] as the cause of diseases classified elsewhere; D64.9 Anemia, unspecified; E78.5 Hyperlipidemia, unspecified; L30.9 Dermatitis, unspecified; F41.1 Generalized anxiety disorder; G47.33 Obstructive sleep apnea (adult) (pediatric); G89.29 Other chronic pain; I10 Essential (primary) hypertension; M1A.9XX0 Chronic gout, unspecified, without tophus (tophi); Z79.01 Long term (current) use of anticoagulants; Z79.899 Other long term (current) drug therapy; Z82.49 Family history of ischemic heart disease and other diseases of the circulatory system; Z86.711 Personal history of pulmonary embolism; Z90.710 Acquired absence of both cervix and uterus; Y84.8 Other medical procedures as the cause of abnormal reaction of the patient, or of later complication, without mention of misadventure at the time of the procedure; Z98.49 Cataract extraction status, unspecified eye; Z90.49 Acquired absence of other specified parts of digestive tract
CPT/HCPCS: 36415; 74177; 80053; 81001; 82150; 83605; 83690; 85025; 85027; 87040; 87077; 87086; 87186; 93005; 96361; 96365; 96375; 99285

== ENCOUNTER → 2022-06-21 | Outpatient (CLI) | payer MEDICARE, OTHER ==
--- NOTE | 2022-06-21 14:29 | US ---
EXAMINATION TYPE: US venous doppler duplex LE DATE OF EXAM: 06/21/2022 12:31 PM COMPARISON: NONE CLINICAL HISTORY: R22.43 Perry swelling with lump. Bilateral leg swelling. SIDE PERFORMED: Bilateral TECHNIQUE: The lower extremity deep venous system is examined utilizing real time linear array sonog ly with graded compression, doppler sonography and color-flow sonography. VESSELS IMAGED: Common Femoral Vein Deep Femoral Vein Greater Saphenous Vein * Femoral Vein Popliteal Vein Small Saphenous Vein * Proximal Calf Veins (* superficial vessels) *Exam is limited due to edema and body habitus. Right Leg: No evidence of DVT in veins imaged at this time. Great amount of calf edema, unable to vi sualize calf veins at ankle. Left Leg: No evidence of DVT in veins imaged at this time. Great amount of calf edema, unable to vis ualize calf veins at ankle. IMPRESSION: 1. No evidence of deep vein to most of the lower extremities. 2. Subcutaneous changes edema of the bilateral legs.
== END | disposition home or self-care (01) ==
LOC: RADUSWWP 11:55
PROVIDERS: ATTEND Family Medicine
DX: R22.43 Localized swelling, mass and lump, lower limb, bilateral (principal)
CPT/HCPCS: 93970

== ENCOUNTER → 2022-07-31 | Outpatient (CLI) | payer MEDICARE, OTHER | END | disposition home or self-care (01) | LOC: LABWHC1 10:02 | PROVIDERS: ATTEND Family Medicine | DX: Z53.9 Procedure and treatment not carried out, unspecified reason (principal) ==

== ENCOUNTER → 2022-09-07 | Outpatient (CLI) | payer MEDICARE, OTHER ==
[2022-09-07 18:56] LABS: Basophils # (A) 0.02 X 10*3/uL (0.00-0.10); Basophils % (A) 0.4 %; Eosinophils # (A) 0.03 X 10*3/uL (0.04-0.35); Eosinophils % (A) 0.6 %; HCT 38.9 % (37.2-46.3); HGB 12.4 g/dL (12.0-15.0); Immature Grans, Automated 0.9 %; Lymphocytes % (A) 40.8 %; MCH 30.3 pg (27.0-32.0); MCHC 31.9 g/dL (32.0-37.0); MCV 95.1 fL (80.0-97.0); Mean Platelet Volume 10.4 fL (9.5-12.2); Monocytes # (A) 0.85 X 10*3/uL (0.20-1.00); Monocytes % (A) 18.2 %; NRBC Per 100 WBC 0 /100 WBCS (0.0-0.0); Neutrophils # (A) 1.82 X 10*3/uL (1.80-7.70); Neutrophils % (A) 39.1 %; Platelet Count 174 X 10*3/uL (140-440); RBC 4.09 X 10*6/uL (4.10-5.20); RDW 13.4 % (11.5-14.5); WBC 4.66 X 10*3/uL (4.50-10.00)
[2022-09-07 20:59] LABS: ALT 14 U/L (8-44); AST 17 U/L (13-35); Albumin 4.3 g/dL (3.8-4.9); Albumin/Globulin Ratio 1.43 (1.60-3.17); Alkaline Phosphatase 84 U/L (41-126); BUN/Creat Ratio 15.67 Ratio (12.00-20.00); Blood Urea Nitrogen 14.1 mg/dL (9.0-27.0); Calcium 10.4 mg/dL (8.7-10.3); Carbon Dioxide 24.4 mmol/L (20.0-27.5); Chloride 102 mmol/L (96-109); Chol/HDL Ratio 1.91 Ratio; Glucose 86 mg/dL (70-110); LDL Cholesterol,Calculated 75.9 mg/dL (0.0-131.0); Potassium 4.2 mmol/L (3.5-5.5); Sodium 139 mmol/L (135-145); Total Protein 7.3 g/dL (6.2-8.2); Uric Acid 6.2 mg/dL (2.9-7.7); VLDL Calculation 14.76 mg/dL (5.00-40.00)
[2022-09-07 21:26] LABS: % Iron Saturation 27.43 (12.00-45.00); Iron 111 ug/dL (50-170); Total Iron Binding Capacity 405 ug/dL (228-460)
[2022-09-09 09:41] LABS: Gamma Globulin 0.88 g/dL (0.70-1.50)
== END | disposition home or self-care (01) ==
LOC: LABWHC1 12:45
PROVIDERS: ATTEND Family Medicine
DX: R22.43 Localized swelling, mass and lump, lower limb, bilateral (principal); R79.9 Abnormal finding of blood chemistry, unspecified; I10 Essential (primary) hypertension; D68.51 Activated protein C resistance; D50.9 Iron deficiency anemia, unspecified; E88.81 Metabolic syndrome and other insulin resistance; N18.9 Chronic kidney disease, unspecified
CPT/HCPCS: 36415; 80053; 80061; 82232; 83036; 83540; 83550; 83880; 83883; 83970; 84165; 84439; 84443; 84550; 85025; 86334

== ENCOUNTER 2022-09-20 11:48 | Inpatient (IN) | payer MEDICARE, OTHER ==
[2022-09-20] MEDS ORDERED: SODIUM CHLORIDE 0.9% 500 ML 500 ML IV STA (13:51)
[2022-09-20] MEDS ORDERED: HYDROmorphone 0.5 MG/0.5 ML SYRINGE IVP STA (13:51)
--- NOTE | 2022-09-20 13:54 | ED ---
Abdominal Pain HPI - General Chief Complaint: Abdominal Pain Stated Complaint: abd pain, headache, nausea Time Seen by Provider: 09/20/22 13:44 Source: patient, RN notes reviewed, old records reviewed Mode of arrival: wheelchair Limitations: no limitations - History of Present Illness Initial Comments: This is a nontoxic-appearing 72-year-old female that presents to the emergency room with right lower quadrant and suprapubic pain for the past 3 days. Has nausea but no vomiting. Denies any fevers. No chest pain or difficulty breathing. She states that she is concerned because 6 months ago she did have a history of diverticulitis and waited too long. Patient has a history of hypertension, factor 5 Leiden, diverticulosis, PE in 2019. Surgical history of bariatric gastric sleeve 1980s, hysterectomy cholecystectomy and hernia repair this year. MD Complaint: abdominal pain -: days(s) (3) Location: RLQ, suprapubic Severity scale (1-10): 9 Consistency: constant Improves With: nothing Worsens With: other (Palpation) Associated Symptoms: nausea - Related Data Home Medications Medication Instructions Recorded Confirmed Apixaban [Eliquis] 5 mg PO BID 07/29/20 09/20/22 allopurinoL [Zyloprim] 100 mg PO DAILY 07/29/20 09/20/22 clonazePAM [KlonoPIN] 0.5 mg PO HS 07/29/20 09/20/22 Furosemide [Lasix] 40 mg PO DAILY 08/26/21 09/20/22 Pregabalin [Lyrica] 75 mg PO BID 08/26/21 09/20/22 Diazepam 10mg/Baclofen 1 supp VAGINAL HS PRN 09/18/21 09/20/22 10mg/Gabapentin 300mg Vaginal Suppository Lutein 6mg Tab 2 tab PO DAILY 09/18/21 09/20/22 Sennosides [Senna] 8.6 mg PO BID 09/18/21 09/20/22 buPROPion HCL [buPROPion HCL SR] 200 mg PO BID 09/18/21 09/20/22 lisinopriL [Prinivil] 20 mg PO DAILY 09/18/21 09/20/22 Magnesium 400 mg PO DAILY 12/02/21 09/20/22 Pravastatin Sodium [Pravachol] 20 mg PO DAILY 12/02/21 09/20/22 Clotrimazole/Betameth Cream 1 applic TOPICAL BID 03/30/22 09/20/22 [Lotrisone] Potassium Chloride [Klor-Con 20] 20 meq PO DAILY 03/30/22 09/20/22 Calcium/Magnesium/Vit D3/[place] 1 cap PO DAILY 09/20/22 09/20/22 [Calcium-Mag Oxide-Vit D3 Sftgl] Venlafaxine HCl ER [Effexor Xr] 75 mg PO DAILY 09/20/22 09/20/22 polyethylene glycoL 3350 [Miralax] 17 gm PO BID 09/20/22 09/20/22 Allergies Allergy/AdvReac Type Severity Reaction Status Date / Time itraconazole Allergy Unknown Verified 09/20/22 15:45 traconazole Allergy Unknown Uncoded 09/20/22 12:49 Review of Systems ROS Statement: Those systems with pertinent positive or pertinent negative responses have been documented in the HPI. ROS Other: All systems not noted in ROS Statement are negative. Past Medical History Past Medical History: Hypertension, Pulmonary Embolus (PE) Additional Past Medical History / Comment(s): DDD. PE September 2019. hx gout. leiden factor V, rich foot edema,, new rich leg edema( pt to call [facility]), constipation, diverticulosis, eczema, severe urinary incontinece- uses brief, pt states dx with COVID 09/18/21 History of Any Multi-Drug Resistant Organisms: None Reported Past Surgical History: Bariatric Surgery, Cholecystectomy, Hysterectomy Additional Past Surgical History / Comment(s): cataract sx. Gastric stapling in 1979. Cataract surgery 2015. Colonoscopy June 2020. DEDRA/BSO with umbil ical hernia repair in September 2020. Past Psychological History: Anxiety, Depression Smoking Status: Never smoker Past Alcohol Use History: None Reported Past Drug Use History: None Reported - Past Family History Mother Family Medical History: Myocardial Infarction ([place]) Father Family Medical History: Myocardial Infarction ([place]) Brother(s) Family Medical History: Deep Vein Thrombosis (DVT), Myocardial Infarction ([place]), Pulmonary Embolus General Exam Limitations: no limitations General appearance: alert, in no apparent distress Head exam: Present: atraumatic, normocephalic Eye exam: Present: normal appearance. Absent: scleral icterus, conjunctival injection, periorbital swelling, periorbital tenderness Neck exam: Absent: tenderness, meningismus Respiratory exam: Absent: respiratory distress, accessory muscle use Cardiovascular Exam: Present: regular rate GI/Abdominal exam: Present: soft, tenderness (Right lower quadrant , suprapubic). Absent: distended, guarding, rebound, rigid Extremities exam: Present: normal capillary refill Back exam: Present: normal inspection. Absent: tenderness, CVA tenderness (R), CVA tenderness (L), rash noted Neurological exam: Present: alert, oriented X3 Psychiatric exam: Present: normal affect, normal mood Skin exam: Present: warm, dry, normal color. Absent: cyanosis, diaphoretic, petechiae, pallor Course Vital Signs 09/20/22 09/20/22 09/20/22 12:39 14:59 17:50 Temperature 97.2 F L Pulse Rate 69 67 66 Respiratory 16 18 18 Rate Blood Pressure 157/89 133/79 155/87 O2 Sat by Pulse 98 97 95 Oximetry Medical Decision Making - Medical Decision Making Patient presents with right lower quadrant and suprapubic abdominal pain progressively getting worse since Tuesday. Decreased appetite. Denies any fevers, nausea or vomiting. History of bariatric surgery in 1979, hysterectomy and cholecystectomy. Underwent hernia repair surgery about a year ago with Dr. Hummel. She also has medical history factor 5-lead leiden, hypertension, pulmonary embolism in [address] interpreted by me as showing prominent small bowel loops within the left upper quadrant. Patient's pain is right lower quadrant and lower mid abdominal pain. Radiologist interpretation CT abdomen and pelvis shows a somewhat prominent small bowel loop within the left upper quadrant, intussusception or intraluminal lipoma should be considered. There is also a 1.1 cm hypodense mass within the head of the pancreas with pancreatic duct dilatation. Neoplasm cannot be excluded. 0.6 cm nodule posterior left lung base present stable from comparison. There is diverticulosis without acute diverticulitis. Labs are unremarkable. No evidence of leukocytosis. No fevers. Patient denies any vomiting. Patient reports improvement in pain with pain medication. Patient and family were notified of the test results and plans for admission. They are agreeable to this plan of care. I did speak with Dr. An who recommended admission to him with medicine on consult. Case discussed with Dr. Holbrook, patient placed NPO. - Lab Data Result diagrams: 09/20/22 14:20 09/20/22 14:20 Lab Results 09/20/22 09/20/22 09/20/22 Range/Units 14:20 14:20 14:20 WBC 6.1 (3.8-10.6) k/uL RBC 4.64 (3.80-5.40) m/uL Hgb 14.5 (11.4-16.0) gm/dL Hct 42.0 (34.0-46.0) % MCV 90.5 (80.0-100.0) fL MCH 31.1 (25.0-35.0) pg MCHC 34.4 (31.0-37.0) g/dL RDW 13.4 (11.5-15.5) % Plt Count 192 (150-450) k/uL MPV 8.2 Neutrophils % (Manual) 56 % Lymphocytes % (Manual) 28 % Monocytes % (Manual) 16 % Neutrophils # (Manual) 3.42 (1.3-7.7) k/uL Lymphocytes # (Manual) 1.71 (1.0-4.8) k/uL Monocytes # (Manual) 0.98 (0-1.0) k/uL Nucleated RBCs 0 (0-0) /100 WBC Polychromasia Present Sodium 137 (137-145) mmol/L Potassium 3.9 (3.5-5.1) mmol/L Chloride 100 (98-107) mmol/L Carbon Dioxide 26 (22-30) mmol/L Anion Gap 11 mmol/L BUN 18 H (7-17) mg/dL Creatinine 0.96 (0.52-1.04) mg/dL Est GFR (CKD-EPI)AfAm 67 (>60 ml/min/1.73 sqM) Est GFR (CKD-EPI)NonAf 59 (>60 ml/min/1.73 sqM) Glucose 104 H (74-99) mg/dL Plasma Lactic Acid Reji 1.3 (0.7-2.0) mmol/L Calcium 10.9 H (8.4-10.2) mg/dL Total Bilirubin 0.9 (0.2-1.3) mg/dL AST 24 (14-36) U/L ALT 20 (4-34) U/L Alkaline Phosphatase 102 (38-126) U/L Total Protein 7.9 (6.3-8.2) g/dL Albumin 4.9 (3.5-5.0) g/dL Amylase 78 (30-110) U/L Lipase 146 (23-300) U/L Disposition Clinical Impression: Abdominal pain Disposition: ADMITTED IP TO THIS [facility] Decision Date: 09/20/22 Decision Time: 16:38
[2022-09-20 14:50] LABS: Albumin 4.9 g/dL (3.5-5.0); Calcium 10.9 mg/dL (8.4-10.2); Potassium 3.9 mmol/L (3.5-5.1); Total Bilirubin 0.9 mg/dL (0.2-1.3); Total Protein 7.9 g/dL (6.3-8.2)
[2022-09-20 14:57] LABS: HGB 14.5 gm/dL (11.4-16.0); MCH 31.1 pg (25.0-35.0); MCHC 34.4 g/dL (31.0-37.0); MCV 90.5 fL (80.0-100.0); Mean Platelet Volume 8.2; Platelet Count 192 k/uL (150-450); RBC 4.64 m/uL (3.80-5.40); RDW 13.4 % (11.5-15.5); WBC 6.1 k/uL (3.8-10.6)
[2022-09-20 15:13] LABS: Lymphocytes # (M) 1.71 k/uL (1.0-4.8); Monocytes # (M) 0.98 k/uL (0-1.0); Neutrophils # (M) 3.42 k/uL (1.3-7.7); Neutrophils % (M) 56 %; Nucleated Red Blood Cells 0 /100 WBC (0-0); Total Cells Counted 100
[2022-09-20 15:14] LABS: Polychromasia Present
--- NOTE | 2022-09-20 15:59 | CT ---
EXAMINATION TYPE: CT abdomen pelvis w con DATE OF EXAM: 09/20/2022 COMPARISON: 03/30/2022 INDICATION: Left lower quadrant pain DLP: 1956.1 mGycm, Automated exposure control for dose reduction was used. CONTRAST: 80 mL of Isovue 300. Study performed without Oral Contrast TECHNIQUE: Axial images were obtained from above the diaphragm to the pubic rami in the axial plane a t 5 mm thick sections. Reconstructed images are reviewed on the computer in the coronal plane. FINDINGS: Limited CT sections are obtained the lung bases. Some minimal increased densities in the posterior l eft lung base may be some atelectasis. Some underlying nodularity. The present measuring 0.6 cm. Seri es 201 image 13. Present previously. CT ABDOMEN: Gastric sleeve surgery is evident. Liver: Mild diffuse fatty infiltration of the liver. Spleen: Normal Pancreas: Pancreatic duct dilatation is evident measuring up to 0.5 cm at the head and body junction. Normal 0.3 cm. A hypodense area measuring 1.1 cm may be within the mid pancreatic head. Additional w orkup is recommended. Contrast MRI can be performed. Adrenal glands: The adrenal glands are normal. Gallbladder: Absent Kidneys: No masses are evident. No hydronephrosis is present. No cysts are present. Delayed images were obtained through the kidneys, which remain unremarkable. Aorta: Vascular calcification is within the aorta. Inferior vena cava: Normal. CT PELVIS: Scattered diverticuli are present greatest in the sigmoid colon. No adjacent inflammatory changes tin dent. There is a prominent small bowel loop central hypodensity. Intussusception or lipoma could be c onsidered left upper quadrant. Series 201 image 42. Study is without oral contrast limiting bowel kathryn luation. Appendix: Not identified. Surgical suture appears to be present. Urinary bladder: Normal. Genitourinary structures: Uterus and ovaries are not identified. Osseous structures: No suspicious lytic or sclerotic lesions. Sacroiliac joint degenerative changes a re noted. There is facet hypertrophy noted. IMPRESSIONS: 1. A 1.1 cm hypodense mass within the head of the pancreas is not excluded. There is pancreatic duct dilatation. Additional workup with contrast-enhanced MRI is recommended. Neoplasm is not excluded. 2. Somewhat prominent small bowel loops within the left upper quadrant. Intussusception or intralumin al lipoma within the differential could be considered. 3. 0.6 cm nodule posterior left lung base may be present, stable from comparison. Follow-up exam in 6 months is recommended. 4. Diverticulosis without acute diverticulitis.
[2022-09-20] MEDS ORDERED: NALOXONE 0.4 MG/ML 1 ML VIAL IV PRN (16:34)
[2022-09-20] MEDS ORDERED: HYDROmorphone 0.5 MG/0.5 ML SYRINGE IVP PRN (16:34)
[2022-09-20 19:41] LABS: Appearance,Urine Clear (Clear); Bacteria,Urine Occasional /hpf; Bilirubin,Urine Negative (Negative); Blood,Urine Negative (Negative); Color,Urine Yellow; Glucose,Urine (UA) Negative (Negative); Ketones,Urine 1+ (Negative); Leukocyte Esterase,Urine Moderate (Negative); Nitrite,Urine Negative (Negative); Protein,Urine Trace (Negative); RBC,Urine 7 /hpf (0-5); Squamous Epithelial Cell,Urine 4 /hpf (0-4); Urobilinogen,Urine <2.0 mg/dL (<2.0); WBC,Urine 26 /hpf (0-5)
[2022-09-20 19:42] LABS: Specific Gravity,Urine >1.050 (1.001-1.035)
[2022-09-20] MEDS: clonazePAM 0.5 MG TAB PO SCH (21:17)
[2022-09-20] MEDS: buPROPion SR 100 MG TABLET.ER PO SCH (21:17)
[2022-09-20] MEDS: CLOTRIMAZOLE/BETAMETH 1-0.05% CREAM 45 GM TUBE TOPICAL SCH (21:17)
[2022-09-20] MEDS: APIXABAN 5 MG TAB PO SCH (21:17)
[2022-09-20] MEDS: PREGABALIN 75 MG CAP PO SCH (21:17)
[2022-09-20] MEDS: SODIUM CHLORIDE 0.9% 1,000 ML IV SCH (22:00)
[2022-09-21] MEDS: SODIUM CHLORIDE 0.9% 1,000 ML IV SCH ×2 (08:07→10:16)
[2022-09-21] MEDS ORDERED: ONDANSETRON 4 MG/2 ML VIAL IVP PRN (09:54)
[2022-09-21] MEDS: lisinopriL 20 MG TAB PO SCH (10:04)
[2022-09-21] MEDS: FUROSEMIDE 40 MG TAB PO SCH (10:04)
[2022-09-21] MEDS: APIXABAN 5 MG TAB PO SCH ×2 (10:05→21:19)
[2022-09-21] MEDS: PRAVASTATIN SODIUM 20 MG TAB PO SCH (10:05)
[2022-09-21] MEDS: MAGNESIUM OXIDE 400 MG TAB PO SCH (10:05)
[2022-09-21] MEDS: POTASSIUM CHLORIDE ER 20 MEQ TAB.ER PO SCH (10:05)
[2022-09-21] MEDS: allopurinoL 100 MG TAB PO SCH (10:06)
[2022-09-21] MEDS: VENLAFAXINE HCL ER 75 MG CAP PO SCH (10:06)
[2022-09-21] MEDS: PREGABALIN 75 MG CAP PO SCH ×2 (10:06→21:18)
[2022-09-21] MEDS: buPROPion SR 100 MG TABLET.ER PO SCH ×2 (10:06→21:19)
[2022-09-21] MEDS: CLOTRIMAZOLE/BETAMETH 1-0.05% CREAM 45 GM TUBE TOPICAL SCH ×2 (10:08→21:20)
[2022-09-21] MEDS ORDERED: diphenhydrAMINE 25 MG CAP PO PRN (10:17)
--- NOTE | 2022-09-21 12:22 | P.CONS ---
History of Present Illness - Reason for Consult Consult date: 09/21/22 Medical management abdominal pain - History of Present Illness This is a 72-year-old female who presented to the emergency department with abdominal pain of the right lower quadrant along with suprapubic pain that have been ongoing for the last 3 days. Patient also reports having some nausea but no vomiting. Decreased oral intake. Patient reports she has a past medical history of diverticulitis back in March and was hospitalized for 4 days and was seen by Dr. Payton underwent hernia repair. Patient follows with Dr. Soto in the outpatient setting with a past medical history of hypertension, pulmonary embolism, degenerative disc disease, history of gout, leading factor V, anxiety/depression, and frequent UTIs. Patient also reports she has been having some burning and frequency with urination. Patient did have urinalysis that was sent and surgery has started on IV ceftriaxone. Labs reviewed and within normal limits, amylase was 78, lipase 146, urinalysis showing some moderate leukocytes with some elevated WBCs of 26. Patient underwent abdomen CT showing a 1.17 m hypodense mass within the head of the pancreas with some pancreatic duct dilatation recommending further workup and possible MRI with contrast neoplasm not excluded, somewhat prominent small bowel loops within the left upper quadrant and also some diverticulosis without diverticulitis noted and a 0.67 m nodule in the left lung base which is stable from comparison recommending six- month follow-up. Patient was admitted under surgery services for abdominal pain and medical consult is placed. Review Of Systems: Constitutional: No fever, no chills, no night sweats. No weight change. No weakness, fatigue or lethargy. No daytime sleepiness. EENT: No headache. No blurred vision or double vision, no loss of vision. No loss of Hearing, no ringing in the ears, no dizziness. No nasal drainage or congestion. No epistaxis. No sore throat. Lungs: No shortness of breath, cough, no sputum production. No wheezing. Cardiovascular: No chest pain, no lower extremity edema. No palpitations. No paroxysmal nocturnal dyspnea. No orthopnea. No lightheadedness or dizziness. No syncopal episodes. Abdominal: Reports abdominal pain that is resolved. Reports nausea, no vomiting. No diarrhea. No constipation. No bloody or tarry stools.. Reports loss of appetite. Reports excess gas with no bowel movements Genitourinary: Reports dysuria, reports increased frequency with urgency. No urinary retention. Musculoskeletal: No myalgias. No muscle weakness, no gait dysfunction, no frequent falls. No back pain. No neck pain. Integumentary: No wounds, no lesions. No rash or pruritus. No unusual bruising. No change in hair or nails. Neurologic: No aphasia. No facial droop. No change in mentation. No head injury. No headache. No paralysis. No paresthesia. Psychiatric: No depression. No anxiety. No mood swings. Endocrine: No abnormal blood sugars. No weight change. No excessive sweating or thirst. No cold intolerance. PHYSICAL EXAMINATION: GENERAL: The patient is alert and oriented x4, Well developed, well nourished. Obese. HEENT: Pupils are round and equally reacting to light. EOMI. no scleral icterus. No conjunctival pallor. Normocephalic, atraumatic. No pharyngeal erythema. No thyromegaly. CARDIOVASCULAR: S1 and S2 muffled PULMONARY: diminished breath sounds bilaterally with no wheezing or rhonchi noted. ABDOMEN: soft. Nontender on exam. obese. non-distended, normoactive bowel sounds. No palpable organomegaly. MUSCULOSKELETAL: No joint swelling or deformity. EXTREMITIES: No cyanosis, clubbing, or pedal edema. NEUROLOGICAL: Gross neurological examination did not reveal any focal deficits. SKIN: No rashes. Assessment: Abdominal pain with nausea and right lower quadrant pain History of recent diverticulitis Possible acute urinary tract infection, present on admission with burning and frequency with urination Hypertension Factor V Leiden history History of pulmonary embolism History of anxiety/depression GI prophylaxis DVT prophylaxis Full code Plan: Recommend to continue with current medications and management and general surgery services as admitting. Patient started on IV hydration and awaiting surgery evaluation for findings on abdomen CT pelvis as there was a questionable mass on the pancreas recommending MRI or further workup. Patient reports her abdominal pain is improved and starting on clear liquids. Patient also being started on IV ceftriaxone for possible acute urinary tract infection. Patient reports she is having some burning and frequency with urination. Home medications reviewed and resumed. Patient to continue on gentle IV hydration fo r now and will follow-up with repeat labs in a.m. Encouraged increased activity as tolerated. We will continue to follow with general surgery during hospitalization. Thank you for this consultation. The impression and plan of care has been dictated by Nicole Ware, nurse practitioner as directed. Dr. Parish MD I have performed a history and examination and MDM of this patient, discussed the same with the dictator, and agree with the dictator's assessment and plan as written ,documented as a scribe. Based on total visit time, I have performed more than 50% of the visit. Any additional findings or plans will be noted. Past Medical History Past Medical History: Hypertension, Pulmonary Embolus (PE) Additional Past Medical History / Comment(s): DDD. PE September 2019. hx gout. leiden factor V, rich foot edema,, new rich leg edema( pt to [facility]), constipation, diverticulosis, eczema, severe urinary incontinece- uses brief, pt states dx with COVID 09/18/21 History of Any Multi-Drug Resistant Organisms: None Reported Past Surgical History: Bariatric Surgery, Cholecystectomy, Hysterectomy, Tonsillectomy Additional Past Surgical History / Comment(s): cataract sx. Gastric stapling in 1979. Cataract surgery 2015. Colonoscopy June 2020. DEDRA/BSO with umbilical hernia repair in September 2020, cataract surgery Past Anesthesia/Blood Transfusion Reactions: No Reported Reaction Past Psychological History: Anxiety, Depression Smoking Status: Never smoker Past Alcohol Use History: None Reported Past Drug Use History: None Reported - Past Family History Mother Family Medical History: Myocardial Infarction ([place]) Father Family Medical History: Myocardial Infarction ([place]) Brother(s) Family Medical History: Deep Vein Thrombosis (DVT), Myocardial Infarction ([place]), Pulmonary Embolus Medications and Allergies Home Medications Medication Instructions Recorded Confirmed Type Apixaban [Eliquis] 5 mg PO BID 07/29/20 09/20/22 History allopurinoL [Zyloprim] 100 mg PO DAILY 07/29/20 09/20/22 History clonazePAM [KlonoPIN] 0.5 mg PO HS 07/29/20 09/20/22 History Furosemide [Lasix] 40 mg PO DAILY 08/26/21 09/20/22 History Pregabalin [Lyrica] 75 mg PO BID 08/26/21 09/20/22 History Diazepam 10mg/Baclofen 1 supp VAGINAL HS PRN 09/18/21 09/20/22 History 10mg/Gabapentin 300mg Vaginal Suppository Lutein 6mg Tab 2 tab PO DAILY 09/18/21 09/20/22 History Sennosides [Senna] 8.6 mg PO BID 09/18/21 09/20/22 History buPROPion HCL [buPROPion HCL SR] 200 mg PO BID 09/18/21 09/20/22 History lisinopriL [Prinivil] 20 mg PO DAILY 09/18/21 09/20/22 History Magnesium 400 mg PO DAILY 12/02/21 09/20/22 History Pravastatin Sodium [Pravachol] 20 mg PO DAILY 12/02/21 09/20/22 History Clotrimazole/Betameth Cream 1 applic TOPICAL BID 03/30/22 09/20/22 History [Lotrisone] Potassium Chloride [Klor-Con 20] 20 meq PO DAILY 03/30/22 09/20/22 History Calcium/Magnesium/Vit D3/[place] 1 cap PO DAILY 09/20/22 09/20/22 History [Calcium-Mag Oxide-Vit D3 Sftgl] Venlafaxine HCl ER [Effexor Xr] 75 mg PO DAILY 09/20/22 09/20/22 History polyethylene glycoL 3350 [Miralax] 17 gm PO BID 09/20/22 09/20/22 History Allergies Allergy/AdvReac Type Severity Reaction Status Date / Time itraconazole Allergy Unknown Verified 09/20/22 15:45 traconazole Allergy Unknown Uncoded 09/20/22 12:49 Physical Exam Vitals: Vital Signs Temp Pulse Pulse Resp BP BP Pulse Ox 09/21/22 08:00 98.0 F 73 18 120/68 97 09/21/22 02:00 97.2 F L 78 17 124/75 94 L 09/20/22 21:30 78 09/20/22 20:00 97.7 F 69 17 170/92 97 09/20/22 17:50 66 18 155/87 95 09/20/22 14:59 67 18 133/79 97 09/20/22 12:39 97.2 F L 69 16 157/89 98 Intake and Output 09/20/22 09/21/22 09/21/22 22:59 06:59 14:59 Other: Voiding Method Toilet Diaper Incontinent # Voids 1 2 Weight 115.666 kg Results CBC & Chem 7: 09/20/22 14:20 09/20/22 14:20 Labs: Abnormal Lab Results - Last 24 Hours (Table) 09/20/22 09/20/22 Range/Units 14:20 19:35 BUN 18 H (7-17) mg/dL Glucose 104 H (74-99) mg/dL Calcium 10.9 H (8.4-10.2) mg/dL Ur Specific [place] >1.050 H (1.001-1.035) Urine Protein Trace H (Negative) Urine Ketones 1+ H (Negative) Ur Leukocyte Esterase Moderate H (Negative) Urine RBC 7 H (0-5) /hpf Urine WBC 26 H (0-5) /hpf Urine Bacteria Occasional H (None) /hpf
[2022-09-21] MEDS: PANTOPRAZOLE 40 MG TABLET PO SCH (13:22)
--- NOTE | 2022-09-21 15:10 | P.GSHP ---
History of Present Illness H&P Date: 09/21/22 CHIEF COMPLAINT: Nausea HISTORY OF PRESENT ILLNESS: This is a 72-year-old female who presented to the hospital with complaints of nausea that started on Tuesday at around 3 AM. She reports that she had been feeling fine at [employer] and that was the last time she actually ate a full meal. On Tuesday she tried to eat some hand but had increase in nausea and was unable to eat. She denies any vomiting. Denies any abdominal pain. She is having flatus last bowel movement was on Tuesday. She does complain of burning with urination and urinary frequency. She does have a history of multiple UTIs. Patient has a surgical history of repair of incarcerated incisional hernia, sleeve gastrectomy, hysterectomy and cholecystectomy. She also does have a history of factor V Leiden deficiency and PE. Patient is on Eliquis for anticoagulation. Patient denies any fever chills or sweats. Patient reports that she was due for EGD and colonoscopy last month headache canceled the appointment. PAST MEDICAL HISTORY: See list. PAST SURGICAL HISTORY: See list. MEDICATIONS: See list. ALLERGIES: See list. SOCIAL HISTORY: No illicit drug use. REVIEW OF SYSTEMS: CONSTITUTIONAL: Denies fever or chills. HEENT: Denies blurred vision, vision changes, or eye pain. Denies hemoptysis ENDOCRINE: Denies heat or cold intolerance. CARDIOVASCULAR: Denies chest pain or pressure. RESPIRATORY: No shortness of breath. GASTROINTESTINAL: Please refer to HPI otherwise unremarkable NEURO: Denies history of seizures. PSYCH: No depression or suicidal ideation HEMATOLOGIC: Denies bleeding disorders. LYMPHATIC: The patient denies any lumps and bumps around the neck. GENITOURINARY: Denies any blood in urine or increased urinary frequency. MUSCULOSKELETAL: Denies myalgias. Denies joint swelling. Denies decreased range of motion beyond patients baseline. SKIN: Denies pruitis. Denies rash. PHYSICAL EXAM: VITAL SIGNS: Reviewed GENERAL: Well-developed in no acute distress. HEENT: No sclera icterus. Extraocular movements grossly intact. Moist buccal mucosa. Head is atraumatic, normocephalic. Hears conversational speech. No nasal drainage. NECK: Supple without lymphadenopathy. CHEST: Non-labored respirations and equal bilateral excursions. CARDIOVASCULAR: Palpable 2+ radial pulses. ABDOMEN: Soft. Nondistended. Mild discomfort with palpation of the right side of abdomen MUSCULOSKELETAL: No clubbing or cyanosis. NEUROLOGIC: No focal or lateralizing signs. Cranial nerves II through XII grossly intact. PSYCH: Appropriate affect. Alert and oriented to person, place and time. SKIN: Well perfused. Good skin turgor. LABORATORY DATA: WBC is 6.1 HGB 14.5 platelets 192 Sodium 137 potassium 3.9 creatinine 0.96 AST 24 ALT 20 alk phos 102 lipase 146 Urinalysis moderate leukocyte esterase ,26 urine WBCs. Urine culture pending IMAGING: Computed tomography scan abdomen and pelvis 1.1 cm hypodense mass within the head of the pancreas is not excluded. There is pancreatic duct dilatation. Additional workup with contrast enhanced MRI is recommended. Neoplasm is not e xcluded. Somewhat prominent small bowel loops within the left upper quadrant intussusception or intraluminal lipoma within the differential could be considered. 0.6 cm nodule posterior lung base may be present, stable from comparison. Follow-up exam in 6 months. Diverticulosis without acute dive rticulitis. ASSESSMENT: 1. Nausea with mild right sided abdominal discomfort 2. Possible UTI. Dysuria and urinary frequency 3. 1.1 cm hypodense mass within the head of the pancreas is not excluded on computed tomography scan 4. History of diverticulitis 5. History of factor V Leiden 6. History of PE PLAN: -Start Rocephin for possible UTI -Continue IV fluids -Start clear liquid diet and advance as tolerated -Patient given Zofran as needed for nausea. She did develop a rash. Zofran d iscontinued. Benadryl given for rash -Continue supportive care -Medicine service consulted for medical management Physician Commercial Fisher note has been reviewed by physician. Signing provider agrees with the documented findings, assessment, and plan of care. Past Medical History Past Medical History: Hypertension, Pulmonary Embolus (PE) Additional Past Medical History / Comment(s): DDD. PE September 2019. hx gout. leiden factor V, rich foot edema,, new rich leg edema( pt to call [facility]), constipation, diverticulosis, eczema, severe urinary incontinece- uses brief, pt states dx with COVID 09/18/21 History of Any Multi-Drug Resistant Organisms: None Reported Past Surgical History: Bariatric Surgery, Cholecystectomy, Hysterectomy, Tonsillectomy Additional Past Surgical History / Comment(s): cataract sx. Gastric stapling in 1979. Cataract surgery 2015. Colonoscopy June 2020. DEDRA/BSO with umbilical hernia repair in September 2020, cataract surgery Past Anesthesia/Blood Transfusion Reactions: No Reported Reaction Past Psychological History: Anxiety, Depression Smoking Status: Never smoker Past Alcohol Use History: None Reported Past Drug Use History: None Reported - Past Family History Mother Family Medical History: Myocardial Infarction ([place]) Father Family Medical History: Myocardial Infarction ([place]) Brother(s) Family Medical History: Deep Vein Thrombosis (DVT), Myocardial Infarction ([place]), Pulmonary Embolus Medications and Allergies Home Medications Medication Instructions Recorded Confirmed Type Apixaban [Eliquis] 5 mg PO BID 07/29/20 09/20/22 History allopurinoL [Zyloprim] 100 mg PO DAILY 07/29/20 09/20/22 History clonazePAM [KlonoPIN] 0.5 mg PO HS 07/29/20 09/20/22 History Furosemide [Lasix] 40 mg PO DAILY 08/26/21 09/20/22 History Pregabalin [Lyrica] 75 mg PO BID 08/26/21 09/20/22 History Diazepam 10mg/Baclofen 1 supp VAGINAL HS PRN 09/18/21 09/20/22 History 10mg/Gabapentin 300mg Vaginal Suppository Lutein 6mg Tab 2 tab PO DAILY 09/18/21 09/20/22 History Sennosides [Senna] 8.6 mg PO BID 09/18/21 09/20/22 History buPROPion HCL [buPROPion HCL SR] 200 mg PO BID 09/18/21 09/20/22 History lisinopriL [Prinivil] 20 mg PO DAILY 09/18/21 09/20/22 History Magnesium 400 mg PO DAILY 12/02/21 09/20/22 History Pravastatin Sodium [Pravachol] 20 mg PO DAILY 12/02/21 09/20/22 History Clotrimazole/Betameth Cream 1 applic TOPICAL BID 03/30/22 09/20/22 History [Lotrisone] Potassium Chloride [Klor-Con 20] 20 meq PO DAILY 03/30/22 09/20/22 History Calcium/Magnesium/Vit D3/[place] 1 cap PO DAILY 09/20/22 09/20/22 History [Calcium-Mag Oxide-Vit D3 Sftgl] Venlafaxine HCl ER [Effexor XR] 75 mg PO DAILY 09/20/22 09/20/22 History polyethylene glycoL 3350 [Miralax] 17 gm PO BID 09/20/22 09/20/22 History Allergies Allergy/AdvReac Type Severity Reaction Status Date / Time itraconazole Allergy Unknown Verified 09/20/22 15:45 traconazole Allergy Unknown Uncoded 09/20/22 12:49 Surgical - Exam Vital Signs Temp Pulse Resp BP Pulse Ox 97.2 F L 69 16 157/89 98 09/20/22 12:39 09/20/22 12:39 09/20/22 12:39 09/20/22 12:39 09/20/22 12:39 Results - Labs 09/20/22 14:20 09/20/22 14:20 Abnormal Lab Results - Last 24 Hours (Table) 09/20/22 09/20/22 Range/Units 14:20 19:35 BUN 18 H (7-17) mg/dL Glucose 104 H (74-99) mg/dL Calcium 10.9 H (8.4-10.2) mg/dL Ur Specific [place] >1.050 H (1.001-1.035) Urine Protein Trace H (Negative) Urine Ketones 1+ H (Negative) Ur Leukocyte Esterase Moderate H (Negative) Urine RBC 7 H (0-5) /hpf Urine WBC 26 H (0-5) /hpf Urine Bacteria Occasional H (None) /hpf Diabetes panel 09/20/22 Range/Units 14:20 Sodium 137 (137-145) mmol/L Potassium 3.9 (3.5-5.1) mmol/L Chloride 100 (98-107) mmol/L Carbon Dioxide 26 (22-30) mmol/L BUN 18 H (7-17) mg/dL Creatinine 0.96 (0.52-1.04) mg/dL Glucose 104 H (74-99) mg/dL Calcium 10.9 H (8.4-10.2) mg/dL AST 24 (14-36) U/L ALT 20 (4-34) U/L Alkaline Phosphatase 102 (38-126) U/L Total Protein 7.9 (6.3-8.2) g/dL Albumin 4.9 (3.5-5.0) g/dL Calcium panel 09/20/22 Range/Units 14:20 Calcium 10.9 H (8.4-10.2) mg/dL Albumin 4.9 (3.5-5.0) g/dL Pituitary panel 09/20/22 Range/Units 14:20 Sodium 137 (137-145) mmol/L Potassium 3.9 (3.5-5.1) mmol/L Chloride 100 (98-107) mmol/L Carbon Dioxide 26 (22-30) mmol/L BUN 18 H (7-17) mg/dL Creatinine 0.96 (0.52-1.04) mg/dL Glucose 104 H (74-99) mg/dL Calcium 10.9 H (8.4-10.2) mg/dL Adrenal panel 09/20/22 Range/Units 14:20 Sodium 137 (137-145) mmol/L Potassium 3.9 (3.5-5.1) mmol/L Chloride 100 (98-107) mmol/L Carbon Dioxide 26 (22-30) mmol/L BUN 18 H (7-17) mg/dL Creatinine 0.96 (0.52-1.04) mg/dL Glucose 104 H (74-99) mg/dL Calcium 10.9 H (8.4-10.2) mg/dL Total Bilirubin 0.9 (0.2-1.3) mg/dL AST 24 (14-36) U/L ALT 20 (4-34) U/L Alkaline Phosphatase 102 (38-126) U/L Total Protein 7.9 (6.3-8.2) g/dL Albumin 4.9 (3.5-5.0) g/dL
--- NOTE | 2022-09-21 15:23 | P.DS ---
Providers Date of admission: 09/20/22 16:42 Expected date of discharge: 09/21/22 Attending physician: Lee Ann Hummel Consults: 09/20/22 16:34 Consult Physician Routine Consulting Provider: Aundrea Dimas Consult Reason/Comments: medical management, abd pain Do you want consulting provider notified?: Yes, Notify in am Primary care physician: Olga Andersen Hospital Course: Discharge diagnosis 1. Nausea with mild right sided abdominal discomfort 2. Possible UTI. Dysuria and urinary frequency 3. 1.1 cm hypodense mass within the head of the pancreas is not excluded on computed tomography scan 4. History of diverticulitis 5. History of factor V Leiden 6. History of PE Hospital course This is a 72-year-old female who presented to the hospital with complaints of nausea that started on Tuesday at around 3 AM. She reports that she had been feeling fine at [place] and that was the last time she actually ate a full meal. On Tuesday she tried to eat some ham but had increase in nausea and was unable to eat. She denies any vomiting. Denies any abdominal pain. She is having flatus and last bowel movement was on Tuesday. She does complain of burning with urination and urinary frequency. Patient started on antibiotics for UTI. Her nausea has improved. She is tolerating diet. She is afebrile. She is up and ambulating. No acute findings on computed tomography scan of abdomen and pelvis. CAT scan reviewed by Dr. Hummel and she recommends follow up in office. Patient is stable for discharge. Physician Family Resource Coordinator note has been reviewed by physician. Signing provider agrees with the documented findings, assessment, and plan of care. Patient Condition at Discharge: Stable Plan - Discharge Summary Discharge Rx Participant: No New Discharge Prescriptions: New Ciprofloxacin HCl [Cipro] 500 mg PO Q12HR 10 Days #5 tab Continue Apixaban [Eliquis] 5 mg PO BID allopurinoL [Zyloprim] 100 mg PO DAILY clonazePAM [KlonoPIN] 0.5 mg PO HS Pregabalin [Lyrica] 75 mg PO BID Furosemide [Lasix] 40 mg PO DAILY Sennosides [Senna] 8.6 mg PO BID Lutein 6mg Tab 2 tab PO DAILY Diazepam 10mg/Baclofen 10mg/Gabapentin 300mg Vaginal Suppository 1 supp VAGINAL HS PRN PRN Reason: Pain Pravastatin Sodium [Pravachol] 20 mg PO DAILY Potassium Chloride [Klor-Con 20] 20 meq PO DAILY Venlafaxine HCl ER [Effexor XR] 75 mg PO DAILY polyethylene glycoL 3350 [Miralax] 17 gm PO BID buPROPion HCL [buPROPion HCL SR] 200 mg PO BID lisinopriL [Prinivil] 20 mg PO DAILY Magnesium 400 mg PO DAILY Clotrimazole/Betameth Cream [Lotrisone] 1 applic TOPICAL BID Calcium/Magnesium/Vit D3/[place] [Calcium-Mag Oxide-Vit D3 Sftgl] 1 cap PO DAILY Discharge Medication List Apixaban [Eliquis] 5 mg PO BID 07/29/20 [History] allopurinoL [Zyloprim] 100 mg PO DAILY 07/29/20 [History] clonazePAM [KlonoPIN] 0.5 mg PO HS 07/29/20 [History] Furosemide [Lasix] 40 mg PO DAILY 08/26/21 [History] Pregabalin [Lyrica] 75 mg PO BID 08/26/21 [History] Diazepam 10mg/Baclofen 10mg/Gabapentin 300mg Vaginal Suppository 1 supp VAGINAL HS PRN 09/18/21 [History] Lutein 6mg Tab 2 tab PO DAILY 09/18/21 [History] Sennosides [Senna] 8.6 mg PO BID 09/18/21 [History] buPROPion HCL [buPROPion HCL SR] 200 mg PO BID 09/18/21 [History] lisinopriL [Prinivil] 20 mg PO DAILY 09/18/21 [History] Magnesium 400 mg PO DAILY 12/02/21 [History] Pravastatin Sodium [Pravachol] 20 mg PO DAILY 12/02/21 [History] Clotrimazole/Betameth Cream [Lotrisone] 1 applic TOPICAL BID 03/30/22 [History] Potassium Chloride [Klor-Con 20] 20 meq PO DAILY 03/30/22 [History] Calcium/Magnesium/Vit D3/[place] [Calcium-Mag Oxide-Vit D3 Sftgl] 1 cap PO DAILY 09/20/22 [History] Venlafaxine HCl ER [Effexor XR] 75 mg PO DAILY 09/20/22 [History] polyethylene glycoL 3350 [Miralax] 17 gm PO BID 09/20/22 [History] Ciprofloxacin HCl [Cipro] 500 mg PO Q12HR 10 Days #5 tab 09/21/22 [Rx] Follow up Appointment(s)/Referral(s): Olga Andersen MD [Primary Care Provider] - 1-2 days Lee Ann Hummel MD [STAFF PHYSICIAN] - 09/28/22 Discharge Disposition: HOME SELF-CARE
[2022-09-21] MEDS ORDERED: DEXAMETHASONE SOD PHOSPHATE 10 MG/ML 1 ML VIAL IVP STA (16:53)
[2022-09-21] MEDS ORDERED: SODIUM CHLORIDE 0.9% 1,000 ML IV ONE (16:53)
[2022-09-21] MEDS ORDERED: PROCHLORPERAZINE INJ 10 MG/2 ML VIAL IVP PRN (16:54)
[2022-09-21] MEDS: SENNOSIDES 8.6 MG TAB PO SCH (21:18)
[2022-09-21] MEDS: polyethylene glycoL 3350 17 GM POWD.PACK PO SCH (21:18)
[2022-09-21] MEDS: clonazePAM 0.5 MG TAB PO SCH (21:19)
[2022-09-22 03:01] VITALS: TEMP 97.9
[2022-09-22] MEDS: PANTOPRAZOLE 40 MG TABLET PO SCH (05:52)
[2022-09-22] MEDS ORDERED: SODIUM CHLORIDE 0.9% 2,000 ML IV ONE (06:48)
--- NOTE | 2022-09-22 06:53 | P.PN ---
Progress Note - Text Progress Note Date: 09/21/22 Patient reported persistent nausea after attempted diet this evening. She reports resolved epigastric pain only moderate to severe nausea. Compazine, decadron and fluid bolus ordered. She reports poor oral intake including of fluids 20 oz only daily for over 3 days. Recommend IV fluid hydration. Discharge held.
[2022-09-22] MEDS ORDERED: SODIUM CHLORIDE 0.9% 1,000 ML IV SCH (07:00)
[2022-09-22 08:13] VITALS: BP 127/79; PULSE 59; RESP 20
[2022-09-22] MEDS ORDERED: LUTEIN 6 MG PO SCH (09:00)
--- NOTE | 2022-09-22 09:37 | P.PN ---
Progress Note - Text Progress Note Date: 09/22/22 Discussion with nursing, patient feels well. No further boluses given. Patient lost IV and requested to go home. Patient tolerated 100% of breakfast. She denied nausea. Patient wanted to go home. Patient discharged.
[2022-09-22] MEDS: lisinopriL 20 MG TAB PO SCH (10:17)
[2022-09-22] MEDS: buPROPion SR 100 MG TABLET.ER PO SCH (10:17)
[2022-09-22] MEDS: allopurinoL 100 MG TAB PO SCH (10:17)
[2022-09-22] MEDS: MAGNESIUM OXIDE 400 MG TAB PO SCH (10:17)
[2022-09-22] MEDS: SENNOSIDES 8.6 MG TAB PO SCH (10:17)
[2022-09-22] MEDS: POTASSIUM CHLORIDE ER 20 MEQ TAB.ER PO SCH (10:17)
[2022-09-22] MEDS: APIXABAN 5 MG TAB PO SCH (10:17)
[2022-09-22] MEDS: FUROSEMIDE 40 MG TAB PO SCH (10:17)
[2022-09-22] MEDS: CLOTRIMAZOLE/BETAMETH 1-0.05% CREAM 45 GM TUBE TOPICAL SCH (10:18)
[2022-09-22] MEDS: polyethylene glycoL 3350 17 GM POWD.PACK PO SCH (10:18)
[2022-09-22] MEDS: VENLAFAXINE HCL ER 75 MG CAP PO SCH (10:20)
[2022-09-22] MEDS: PREGABALIN 75 MG CAP PO SCH (10:24)
[2022-09-22] MEDS: PRAVASTATIN SODIUM 20 MG TAB PO SCH (11:19)
--- NOTE | 2022-09-22 11:35 | P.PN ---
Subjective Progress Note Date: 09/22/22 - Reason for Consult Consult date: 09/21/22 Medical management abdominal pain - History of Present Illness This is a 72-year-old female who presented to the emergency department with abdominal pain of the right lower quadrant along with suprapubic pain that have been ongoing for the last 3 days. Patient also reports having some nausea but no vomiting. Decreased oral intake. Patient reports she has a past medical history of diverticulitis back in March and was hospitalized for 4 days and was seen by Dr. Payton underwent hernia repair. Patient follows with Dr. Soto in the outpatient setting with a past medical history of hypertension, pulmonary embolism, degenerative disc disease, history of gout, leading factor V, anxiet y/depression, and frequent UTIs. Patient also reports she has been having some burning and frequency with urination. Patient did have urinalysis that was sent and surgery has started on IV ceftriaxone. Labs reviewed and within normal limits, amylase was 78, lipase 146, urinalysis showing some moderate leukocytes with some elevated WBCs of 26. Patient underwent abdomen CT showing a 1.17 m hypodense mass within the head of the pancreas with some pancreatic duct dilatation recommending further workup and possible MRI with contrast neoplasm not excluded, somewhat prominent small bowel loops within the left upper quadrant and also some diverticulosis without diverticulitis noted and a 0.67 m nodule in the left lung base which is stable from comparison recommending six- month follow-up. Patient was admitted under surgery services for abdominal pain and medical consult is placed. 09/22/2022 Patient is seen in follow-up today able to tolerate breakfast. Patient reports she was seen and evaluated by surgery being started on Cipro and being discharged home today. Patient reports to feeling well and anxious about going home. Patient will follow-up with surgery and primary care provider outpatient. Patient denies chest pain or shortness of breath. Patient has been up and walking and going to the bathroom with no difficulties. Patient reports her burning sensation with urination is improved. Urine culture pending at this time and will follow-up with surgery in her primary care provider about the results. Patient is medically stable for discharge and will follow-up outpatie nt. No reports of nausea or vomiting and patient did tolerate her diet. Review of systems: Constitutional: No reports of fatigue, fever, or chills Cardiovascular: No reports of chest pain or palpitations Respiratory: No reports of shortness of breath or cough GI: No reports of nausea, vomiting, or diarrhea : No reports of dysuria or retention Neurovascular: No reports of weakness or numbness All medications have been reviewed PHYSICAL EXAMINATION: GENERAL: The patient is alert and oriented x4, Well developed, well nourished. Obese. HEENT: Pupils are round and equally reacting to light. EOMI. no scleral icterus. No conjunctival pallor. Normocephalic, atraumatic. No pharyngeal erythema. No thyromegaly. CARDIOVASCULAR: S1 and S2 muffled PULMONARY: diminished breath sounds bilaterally with no wheezing or rhonchi noted. ABDOMEN: soft. Nontender on exam. obese. non-distended, normoactive bowel sounds. No palpable organomegaly. MUSCULOSKELETAL: No joint swelling or deformity. EXTREMITIES: No cyanosis, clubbing, or pedal edema. NEUROLOGICAL: Gross neurological examination did not reveal any focal deficits. SKIN: No rashes. Assessment: Abdominal pain with nausea and right lower quadrant pain, improved History of recent diverticulitis Possible acute urinary tract infection, present on admission with burning and frequency with urination Hypertension Factor V Leiden history History of pulmonary embolism History of anxiety/depression GI prophylaxis DVT prophylaxis Full code Plan: Recommend to continue with current medications and management and general surgery services as admitting. Patient reports to no acute overnight issues noted and also tolerating diet with no further abdominal pain. Patient has been cleared for discharge by surgery and will be discharged home today. Encouraged to continue current diet and continue taking medications as prescribed. Patient is being started on Cipro 500 mg twice daily per surgery and will follow-up with urine culture report with primary care provider. Discussed with patient that a copy of the report will be sent to her primary care provider. Patient is agreeable with this. Encouraged increased activity as tolerated. We will continue to follow with general surgery during hospitalization. Thank you for this consultation. The impression and plan of care has been dictated by Nicole Ware, nurse practitioner as directed. Dr. Parish MD I have performed a history and examination and MDM of this patient, discussed the same with the dictator, and agree with the dictator's assessment and plan as written ,documented as a scribe. Based on total visit time, I have performed more than 50% of the visit. Any additional findings or plans will be noted. Objective - Vital Signs Vital signs: Vital Signs Temp 97.9 F 09/22/22 08:00 Pulse 59 L 09/22/22 08:00 Resp 20 09/22/22 08:00 BP 127/79 09/22/22 08:00 Pulse Ox 97 09/22/22 08:00 FiO2 Intake & Output 09/21/22 09/22/22 09/22/22 18:59 06:59 18:59 Other: Voiding Method Toilet Toilet Diaper Diaper Incontinent Incontinent # Voids 1 - Labs CBC & Chem 7: 09/20/22 14:20 09/20/22 14:20 Labs: Microbiology - Last 24 Hours (Table) 09/20/22 19:35 Urine Culture - Preliminary Urine,Clean Catch
== END 2022-09-22 11:50 | disposition home or self-care (01) | DRG 690 ==
LOC: EC 11:48 → 4SSUR 16:42 → 6NMEDSUR 09-21 18:03
PROVIDERS: ADMIT Surgery Plastic and Reconstructive Surgery; ATTEND Surgery Plastic and Reconstructive Surgery
DX: N39.0 Urinary tract infection, site not specified (principal); D68.51 Activated protein C resistance; K86.89 Other specified diseases of pancreas; B96.89 Other specified bacterial agents as the cause of diseases classified elsewhere; K57.90 Diverticulosis of intestine, part unspecified, without perforation or abscess without bleeding; Z79.899 Other long term (current) drug therapy; R11.2 Nausea with vomiting, unspecified; Z79.01 Long term (current) use of anticoagulants; I10 Essential (primary) hypertension; M10.9 Gout, unspecified; F32.A Depression, unspecified; F41.9 Anxiety disorder, unspecified; Z86.711 Personal history of pulmonary embolism; Z87.440 Personal history of urinary (tract) infections; Z90.710 Acquired absence of both cervix and uterus; Z98.84 Bariatric surgery status; Z88.1 Allergy status to other antibiotic agents; Z87.19 Personal history of other diseases of the digestive system; Z90.49 Acquired absence of other specified parts of digestive tract; Z86.16 Personal history of COVID-19; Z98.42 Cataract extraction status, left eye; Z98.41 Cataract extraction status, right eye
CPT/HCPCS: 36415; 74177; 80053; 81001; 82150; 83605; 83690; 85025; 87077; 87086; 87186; 96361; 96374; 99285

== ENCOUNTER → 2022-10-13 | Outpatient (CLI) | payer MEDICARE, OTHER ==
--- NOTE | 2022-10-13 19:38 | MR ---
EXAMINATION TYPE: MR abdomen wo/w con DATE OF EXAM: 10/13/2022 7:17 PM INDICATION: Patient age:Female; 72 years old; Reason for study: D13.6 BENIGN NEOPLASM OF PANCREAS, R93.5 ABN FIND; . Abnormal CT, benign neoplasm o f pancreas COMPARISON: CT scan abdomen from 09/20/2022. TECHNIQUE: Multiplanar multi-sequence imaging was performed without contrast. Post contrast imaging was performed. IV Contrast: 11 cc Gadavist FINDINGS: LOWER CHEST: No gross irregularity. ABDOMEN Liver:: No evidence of cirrhosis or steatosis. Gallbladder and Bile ducts: The gallbladder surgically absent. Pancreas: Pancreatic parenchyma is uniform. Area within the pancreatic head of concern demonstrates a tortuous main bile duct with likely accessory duct also present. No suspicious mass or abnormal enha ncement.. Spleen: Small splenule. Adrenal glands: Unremarkable. Kidneys: No evidence of hydronephrosis. Right peripelvic renal cyst measuring up to 3.8 cm. Stomach and Bowel: Unremarkable as visualized. Peritoneum: No evidence of pneumoperitoneum, free fluid, or adenopathy. Vasculature: Unremarkable. No aortic aneurysm. Abdominal wall: Unremarkable. Musculoskeletal: The osseous structures appear intact. IMPRESSION: There is a tortuous main pancreatic duct within the pancreatic head which correlates with finding on CT. No evidence for suspicious mass.
== END | disposition home or self-care (01) ==
LOC: RADMRIMAIN 18:08
PROVIDERS: ATTEND Family Medicine
DX: D13.6 Benign neoplasm of pancreas (principal); R93.5 Abnormal findings on diagnostic imaging of other abdominal regions, including retroperitoneum
CPT/HCPCS: 74183; A9585

== ENCOUNTER → 2022-10-25 | Outpatient (CLI) | payer MEDICARE, OTHER ==
--- NOTE | 2022-10-25 15:38 | NM ---
EXAMINATION TYPE: NM parathyroid DATE OF EXAM: 10/25/2022 COMPARISON: NONE HISTORY: 72-year-old female E83.52, hereditary amyloidosis, unspecified. TECHNIQUE: Following administration of 24.0 mCi Tc99m Sestamibi. Anterior projection images of the n crist[place] and chest were obtained 10 minutes and 3 hours post injection FINDINGS: Thyroid tracer washout: Delayed images demonstrate near-complete tracer washout from the thyroid. Parathyroid uptake: None. The two-hour delayed images do not demonstrate any focal abnormal persisten t uptake in the region of the parathyroid glands to suggest parathyroid adenoma. Normal uptake: There is physiological tracer uptake in the salivary and thyroid glands. IMPRESSION: Normal parathyroid imaging study. No scintigraphic evidence for parathyroid adenoma in the neck or up per mediastinum.
== END | disposition home or self-care (01) ==
LOC: RADNMMAIN 10:51
PROVIDERS: ATTEND Internal Medicine Nephrology
DX: E83.52 Hypercalcemia (principal); E85.9 Amyloidosis, unspecified
CPT/HCPCS: 78070; A9500

== ENCOUNTER → 2022-11-08 | Outpatient (CLI) | payer MEDICARE, OTHER ==
[2022-11-08 23:05] LABS: Basophils # (A) 0.03 X 10*3/uL (0.00-0.10); Basophils % (A) 0.4 %; Eosinophils # (A) 0.04 X 10*3/uL (0.04-0.35); Eosinophils % (A) 0.5 %; HCT 42.2 % (37.2-46.3); HGB 13.6 g/dL (12.0-15.0); Immature Grans, Automated 1.4 %; Lymphocytes % (A) 36.9 %; MCH 30.3 pg (27.0-32.0); MCHC 32.2 g/dL (32.0-37.0); Mean Platelet Volume 11.5 fL (9.5-12.2); Monocytes # (A) 1.62 X 10*3/uL (0.20-1.00); Monocytes % (A) 21.3 %; NRBC Per 100 WBC 0 /100 WBCS (0.0-0.0); Neutrophils # (A) 2.99 X 10*3/uL (1.80-7.70); Neutrophils % (A) 39.5 %; Platelet Count 263 X 10*3/uL (140-440); RBC 4.49 X 10*6/uL (4.10-5.20); RDW 13.1 % (11.5-14.5); WBC 7.59 X 10*3/uL (4.50-10.00)
[2022-11-08 23:51] LABS: Albumin 4.3 g/dL (3.8-4.9)
== END ==
LOC: LABWHC1 15:10
PROVIDERS: ATTEND Internal Medicine Nephrology
DX: E83.52 Hypercalcemia (principal)
CPT/HCPCS: 36415; 80048; 82040; 82043; 82164; 82306; 82570; 82652; 82728; 83540; 83550; 83735; 83970; 84100; 84550; 85025

== ENCOUNTER → 2022-11-10 | Outpatient (CLI) | payer MEDICARE, OTHER ==
[2022-11-10 20:23] LABS: Appearance,Urine Cloudy (Clear); Bilirubin,Urine Negative (Negative); Blood,Urine Trace (Negative); Color,Urine Yellow (Yellow); Ketones,Urine Negative (Negative); Nitrite,Urine Positive (Negative); PH, Urine 7.5 (5.0-8.0); Urobilinogen,Urine 0.2 (0.2,1.0)
[2022-11-10 21:41] LABS: Bacteria,Urine 4+ /HPF (None Seen)
[2022-11-11 10:32] LABS: Urine Creatinine 45.6 mg/dL (28.0-217.0)
[2022-11-11 11:59] LABS: Yeast (UA) PRESENT
[2022-11-11 14:44] LABS: % Iron Saturation 22.16 (12.00-45.00); African American GFR (CKD) 63.5 (60.0-200.0); Anion Gap 16.3 mmol/L (10.00-18.00); BUN/Creat Ratio 14.85 Ratio (12.00-20.00); Calcium 10.7 mg/dL (8.7-10.3); Carbon Dioxide 21.6 mmol/L (20.0-27.5); Non-African American GFR(CKD) 54.8 (60.0-200.0); Phosphorus 2.8 mg/dL (2.4-5.1); Potassium 4.2 mmol/L (3.5-5.5); Uric Acid 6.8 mg/dL (2.9-7.7)
== END | disposition home or self-care (01) ==
LOC: LABWHC1 11:23
PROVIDERS: ATTEND Internal Medicine Nephrology
DX: N18.31 Chronic kidney disease, stage 3a (principal)
CPT/HCPCS: 36415; 80048; 81001; 82043; 82164; 82570; 82652; 82728; 83540; 83550; 83735; 84100; 84550

== ENCOUNTER 2022-11-22 08:01 | Day surgery (SDC) | payer MEDICARE, OTHER ==
--- NOTE | 2022-11-22 07:17 | P.GSHP ---
History of Present Illness H&P Date: 11/22/22 CHIEF COMPLAINT: GERD and colon screen HISTORY OF PRESENT ILLNESS: The patient is a 72-year-old female who presents with gastroesophageal reflux disease and need for colon screen. Upper and lower endoscopy were offered for further evaluation and management. PAST MEDICAL HISTORY: Please see list. PAST SURGICAL HISTORY: Please see list. MEDICATIONS: Please see list. ALLERGIES: Please see list. SOCIAL HISTORY: No illicit drug use FAMILY HISTORY: No reports of Crohn disease or ulcerative colitis. REVIEW OF ORGAN SYSTEMS: CONSTITUTIONAL: No reports of fevers or chills. GI: Denies any blood in stools or constipation. PHYSICAL EXAM: VITAL SIGNS: Stable GENERAL: Well-developed pleasant in no acute distress. HEENT: No scleral icterus. Extraocular movements grossly intact. Moist buccal mucosa. NECK: Supple without lymphadenopathy. CHEST: Unlabored respirations. Equal bilateral excursions. CARDIOVASCULAR: Regular rate and rhythm. Distal 2+ pulses. ABDOMEN: Soft, nondistended. MUSCULOSKELETAL: No clubbing, cyanosis, or edema. ASSESSMENT: 1. Gastroesophageal reflux disease 2. Colon screen. PLAN: 1. Recommend proceeding with an upper and lower endoscopy Past Medical History Past Medical History: Blood Disorder, Hyperlipidemia, Hypertension, Musculoskeletal Disorder, Osteoarthritis (OA), Pulmonary Embolus (PE), Skin Disorder Additional Past Medical History / Comment(s): DDD. PE September 2019. hx gout. leiden factor V, rich foot edema, constipation, diverticulosis, eczema-current flare up "all over", severe urinary incontinence-uses brief-no bladder control, current tx. for UTI, sees Hernandez for hypercalcemia History of Any Multi-Drug Resistant Organisms: None Reported Past Surgical History: Bariatric Surgery, Cholecystectomy, Hernia Repair, Hysterectomy, Tonsillectomy Additional Past Surgical History / Comment(s): cataracts removed, Gastric stapling in 1979. Colonoscopy June 2020. DEDRA/BSO with umbilical hernia repair in September 2020, ventral hernia repair Past Anesthesia/Blood Transfusion Reactions: No Reported Reaction Smoking Status: Never smoker - Past Family History Mother Family Medical History: Myocardial Infarction (DC) Father Family Medical History: Myocardial Infarction (DC) Brother(s) Family Medical History: Deep Vein Thrombosis (DVT), Myocardial Infarction (DC), Pulmonary Embolus Medications and Allergies Home Medications Medication Instructions Recorded Confirmed Type Apixaban [Eliquis] 5 mg PO BID 07/29/20 11/18/22 History allopurinoL [Zyloprim] 100 mg PO DAILY 07/29/20 11/18/22 History clonazePAM [KlonoPIN] 0.5 mg PO DIRECTED PRN 07/29/20 11/18/22 History Furosemide [Lasix] 40 mg PO DAILY 08/26/21 11/18/22 History Pregabalin [Lyrica] 75 mg PO BID 08/26/21 11/18/22 History Diazepam 10mg/Baclofen 1 supp VAGINAL HS PRN 09/18/21 11/18/22 History 10mg/Gabapentin 300mg Vaginal Suppository Lutein/Zeaxanthin 1 each PO DAILY #0 09/18/21 11/18/22 History [Lutein-Zeaxanthin 20-4 mg Sfgl] Sennosides [Senna] 8.6 mg PO BID 09/18/21 11/18/22 History buPROPion HCL [buPROPion HCL SR] 200 mg PO BID 09/18/21 11/18/22 History lisinopriL [Prinivil] 20 mg PO 1200 09/18/21 11/18/22 History Magnesium 400 mg PO DAILY 12/02/21 11/18/22 History Pravastatin Sodium [Pravachol] 20 mg PO 1200 12/02/21 11/18/22 History Clotrimazole/Betameth Cream 1 applic TOPICAL BID 03/30/22 11/18/22 History [Lotrisone] Potassium Chloride [Klor-Con 20] 20 meq PO DAILY 03/30/22 11/18/22 History Venlafaxine HCl ER [Effexor XR] 75 mg PO 1200 09/20/22 11/18/22 History polyethylene glycoL 3350 [Miralax] 17 gm PO BID PRN 09/20/22 11/18/22 History Ciprofloxacin HCl [Cipro] 500 mg PO Q12HR 10 Days #5 tab 09/21/22 11/18/22 Rx Cyanocobalamin (Vitamin B-12) 1,000 mcg PO DAILY 11/18/22 11/18/22 History [Vitamin B-12] Ferrous Sulfate [Feosol] 65 mg PO DAILY 11/18/22 11/18/22 History Allergies Allergy/AdvReac Type Severity Reaction Status Date / Time itraconazole Allergy Unknown Verified 11/18/22 14:21 ondansetron [From Zofran] AdvReac severe Verified 11/18/22 14:21 burning @IV site, itching
[~2022-11-22 08:01] MED LIST: LACTATED RINGERS 1,000 ML IV SCH; LIDOCAINE 1% (10MG/ML) FOR IV START INTRADERMA PRN
[2022-11-22 08:48] VITALS: TEMP 97.6
[2022-11-22] MEDS ORDERED: LIDOCAINE 2% INJ 20 MG/ML (2 ML VIAL) ONE (08:54)
[2022-11-22] MEDS ORDERED: MIDAZOLAM 2 MG/2 ML VIAL ONE (08:54)
[2022-11-22] MEDS ORDERED: PROPOFOL 10 MG/ML 20 ML VIAL IV ONE (08:54)
[2022-11-22] MEDS ORDERED: fentaNYL (PF) 50 MCG/ML 2 ML AMP ONE (08:54)
[2022-11-22 09:51] VITALS: RESP 16
[2022-11-22 10:36] VITALS: BP 116/76; PULSE 61
--- NOTE | 2022-11-22 14:19 | FL ---
EXAMINATION TYPE: FL barium enema DATE OF EXAM: 11/22/2022 COMPARISON: CT abdomen and pelvis September 20, 2022 [address] older [address]s HISTORY: Incomplete colonoscopy. Could not get past sigmoid colon. TECHNIQUE: A double contrast barium enema study is performed. A total of 91 seconds of fluoroscopic time was utilized during procedure and 31 images obtained. FINDINGS: Fire App[employer]atus Engineer view of the abdomen shows overall gas prominent small and large bowel loops particul albert transverse colon. Cholecystectomy clips are redemonstrated. Surgical clips from gastric bypass p rocedure are redemonstrated. There its successful filling to the transverse colon. Patient then had pain and asked to speed up robbi dy. Contrast filling stopped but there was eventual continued retrograde flow of contrast into the ce cum and terminal ileum. There are diverticula in the left and to a greater degree in the sigmoid colo n. There is mild chronic narrowing or stricturing in the sigmoid colon but no obstructing or constric ting neoplasm. Evaluation for polyps suboptimal due to redundancy of the sigmoid colon and body habit us. Appendix was refluxed on postevacuation images and appears within normal limits. The terminal ileum was refluxed and appears within normal limits. IMPRESSION: Successful filling to the cecum. No obstructing or constricting neoplasm with particular attention to the sigmoid colon. Mild stricturing from prior diverticulitis noted at this level.
--- NOTE | 2022-11-23 00:45 | P.PCN ---
Date of Procedure: 11/22/22 Description of Procedure: PREOPERATIVE DIAGNOSIS: Dysphagia Gastroesophageal reflux disease. Epigastric abdominal pain. Personal history of vertical banded gastroplasty Morbid obesity due to excess calories POSTOPERATIVE DIAGNOSIS: Dysphagia Gastroesophageal reflux disease with esophagitis Epigastric abdominal pain. 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 INDICATIONS: The patient is a 72-year-old female who presents with a history of VBG, dysphagia with abdominal pain. She had her procedure over 40 years ago, . Benefits and risks of the procedure were described. Informed consent was obtained. DESCRIPTION: The patient was brought into the endoscopy suite and laid in the left lateral decubitus position. An Olympus gastroscope was passed along the posterior oropharynx down to the distal esophagus where the squamocolumnar junction was at 38 centimeters from the incisors remarkable for chronic erosive esophagitis, LA grade C with gastric stenosis. The stomach was entered where she had 10-cm gastric pouch from VBG to 48-cm of the lumen. Oxidized band was found at the pouch. Attempted resection with endoscopic scissors was unsuccessful. The sleeve reservoir demonstrated gastric gastric fistula. Chronic gastritis was found along the antrum with cold biopsies obtained. The first through third portion of the duodenum was examined and biopsied. The scope had easily retroflexed along the antrum. The stomach was desufflated. The patient tolerated the procedure well. 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 May benefit from antireflux operation. Recommend esophagram, possible referral to endoscopist for removal of foreign body Recommend Omeprazole 40 mg daily Dysphagia type I diet advised for symptom relief
--- NOTE | 2022-11-23 00:49 | P.PCN ---
Date of Procedure: 11/22/22 Description of Procedure: PREOPERATIVE DIAGNOSIS: Diverticulitis with change in bowel habits POSTOPERATIVE DIAGNOSIS: Sigmoid stricture External hemorrhoids Severe diverticulosis OPERATION: Colonoscopy to the sigmoid colon for sigmoidoscopy SURGEON: Lee Ann Hummel MD. ANESTHESIA: MAC. INDICATIONS: The patient is a 72-year-old female who presents for change in bowel habits and diverticulitis. Her last colonoscopy was more than 5 years ago. Benefits and risks were described and informed consent was obtained. DESCRIPTION OF PROCEDURE: The patient had undergone Sutab prep. She had been brought into the operating room and laid in the left lateral decubitus position. After adequate intravenous sedation, the rectum was examined with 2% lidocaine jelly. External hemorrhoids were encountered. The rectal tone was loose. No lesions were palpated in the rectal vault. An Olympus colonoscope was advanced along the rectum to a very tortuous sigmoid colon. The scope was then exchanged for a pediatric colonoscope. Despite multiple maneuvers, the sigmoid colon had severe tortuosity with stricture preventing further advancement of scope. The scope was passed to 20 cm from the anal verge. No evidence of polyps were identified. As the patient posed high risk for perforation with persistence of the procedure, the procedure was discontinued. The colon was desufflated. The patient had tolerated the procedure well. Withdrawal time was over 6 minutes. FINDINGS: [place]ch[place] preparation quality scale 1 (1-5) Tortuous sigmoid colon with stricture preventing further advancement of the scope. External prolapsed hemorrhoids, grade 4 Scope advanced to sigmoid colon at 20 cm. No arteriovenous malformations to sigmoid colon No adenomatous polyps to sigmoid colon No focal colitis to sigmoid colon Stricture of sigmoid colon, 20 cm from anal verge Melanosis coli Grade 4 hemorrhoid Severe diverticulosis without diverticulitis Pediatric colonoscope used unsuccessfully RECOMMENDATIONS: Completion of colonoscopy evaluation with barium enema. Recommend surgical resection of sigmoid stenosis Plan - Discharge Summary Discharge Rx Participant: No New Discharge Prescriptions: New Omeprazole [PriLOSEC] 40 mg PO DAILY #14 cap Continue Apixaban [Eliquis] 5 mg PO BID allopurinoL [Zyloprim] 100 mg PO DAILY clonazePAM [KlonoPIN] 0.5 mg PO DIRECTED PRN PRN Reason: Anxiety Pregabalin [Lyrica] 75 mg PO BID Furosemide [Lasix] 40 mg PO DAILY Sennosides [Senna] 8.6 mg PO BID Lutein/Zeaxanthin [Lutein-Zeaxanthin 20-4 mg Softgel] 1 each PO DAILY #0 Diazepam 10mg/Baclofen 10mg/Gabapentin 300mg Vaginal Suppository 1 supp VAGINAL HS PRN PRN Reason: Pain Pravastatin Sodium [Pravachol] 20 mg PO 1200 Potassium Chloride [Klor-Con 20] 20 meq PO DAILY Venlafaxine HCl ER [Effexor XR] 75 mg PO 1200 polyethylene glycoL 3350 [Miralax] 17 gm PO BID PRN PRN Reason: Constipation buPROPion HCL [buPROPion HCL SR] 200 mg PO BID lisinopriL [Prinivil] 20 mg PO 1200 Magnesium 400 mg PO DAILY Clotrimazole/Betameth Cream [Lotrisone] 1 applic TOPICAL BID Ciprofloxacin HCl [Cipro] 500 mg PO Q12HR 10 Days #5 tab Ferrous Sulfate [Iron (65 MG Elemental)] 65 mg PO DAILY Cyanocobalamin (Vitamin B-12) [Vitamin B-12] 1,000 mcg PO DAILY Discharge Medication List Apixaban [Eliquis] 5 mg PO BID 07/29/20 [History] allopurinoL [Zyloprim] 100 mg PO DAILY 07/29/20 [History] clonazePAM [KlonoPIN] 0.5 mg PO DIRECTED PRN 07/29/20 [History] Furosemide [Lasix] 40 mg PO DAILY 08/26/21 [History] Pregabalin [Lyrica] 75 mg PO BID 08/26/21 [History] Diazepam 10mg/Baclofen 10mg/Gabapentin 300mg Vaginal Suppository 1 supp VAGINAL HS PRN 09/18/21 [History] Lutein/Zeaxanthin [Lutein-Zeaxanthin 20-4 mg Softgel] 1 each PO DAILY #0 09/18 [History] Sennosides [Senna] 8.6 mg PO BID 09/18/21 [History] buPROPion HCL [buPROPion HCL SR] 200 mg PO BID 09/18/21 [History] lisinopriL [Prinivil] 20 mg PO 1200 09/18/21 [History] Magnesium 400 mg PO DAILY 12/02/21 [History] Pravastatin Sodium [Pravachol] 20 mg PO 1200 12/02/21 [History] Clotrimazole/Betameth Cream [Lotrisone] 1 applic TOPICAL BID 03/30/22 [History] Potassium Chloride [Klor-Con 20] 20 meq PO DAILY 03/30/22 [History] Venlafaxine HCl ER [Effexor XR] 75 mg PO 1200 09/20/22 [History] polyethylene glycoL 3350 [Miralax] 17 gm PO BID PRN 09/20/22 [History] Ciprofloxacin HCl [Cipro] 500 mg PO Q12HR 10 Days #5 tab 09/21/22 [Rx] Cyanocobalamin (Vitamin B-12) [Vitamin B-12] 1,000 mcg PO DAILY 11/18/22 [History] Ferrous Sulfate [Iron (65 MG Elemental)] 65 mg PO DAILY 11/18/22 [History] Omeprazole [PriLOSEC] 40 mg PO DAILY #14 cap 11/22/22 [Rx] Follow up Appointment(s)/Referral(s): Lee Ann Hummel MD [STAFF PHYSICIAN] - 12/07/22 Patient Instructions/Handouts: *Surgery [facility] - (Anesthesia) Endoscopy Discharge Instructions, Level 1 National Dysphagia Diet (GEN) Activity/Diet/Wound Care/Special Instructions: START BLOOD THINNER TUESDAY, NOV 25 Discharge Disposition: HOME SELF-CARE
== END 2022-11-22 10:55 | disposition home or self-care (01) ==
LOC: ORWHC2ENDO 08:01
PROVIDERS: ATTEND Surgery Plastic and Reconstructive Surgery
DX: K57.30 Diverticulosis of large intestine without perforation or abscess without bleeding (principal); K56.609 Unspecified intestinal obstruction, unspecified as to partial versus complete obstruction; K63.89 Other specified diseases of intestine; K64.4 Residual hemorrhoidal skin tags; K29.50 Unspecified chronic gastritis without bleeding; K31.1 Adult hypertrophic pyloric stenosis; K31.6 Fistula of stomach and duodenum; K21.00 Gastro-esophageal reflux disease with esophagitis, without bleeding; Z98.0 Intestinal bypass and anastomosis status; K64.3 Fourth degree hemorrhoids; Z79.01 Long term (current) use of anticoagulants; Z79.899 Other long term (current) drug therapy; Z79.891 Long term (current) use of opiate analgesic; I10 Essential (primary) hypertension; E78.5 Hyperlipidemia, unspecified; G47.33 Obstructive sleep apnea (adult) (pediatric); M19.90 Unspecified osteoarthritis, unspecified site; Z86.718 Personal history of other venous thrombosis and embolism; Z87.39 Personal history of other diseases of the musculoskeletal system and connective tissue; Z87.440 Personal history of urinary (tract) infections; M10.9 Gout, unspecified; Z86.711 Personal history of pulmonary embolism; Z98.84 Bariatric surgery status; Z90.49 Acquired absence of other specified parts of digestive tract; Z98.890 Other specified postprocedural states; Z90.722 Acquired absence of ovaries, bilateral; Z98.41 Cataract extraction status, right eye; Z82.49 Family history of ischemic heart disease and other diseases of the circulatory system; Z83.2 Family history of diseases of the blood and blood-forming organs and certain disorders involving the immune mechanism; Z88.3 Allergy status to other anti-infective agents; Z88.8 Allergy status to other drugs, medicaments and biological substances
CPT/HCPCS: 88305; 74270; 43239; 43247; 45330; J2250; J3010; J2704; J2001

== ENCOUNTER 2022-12-20 11:32 | Emergency (ER) | payer MEDICARE, OTHER ==
[2022-12-20] MEDS ORDERED: RX INFO: IV CONTRAST WAS GIVEN 1 EACH MISC MISCELLANE PRN (12:06)
--- NOTE | 2022-12-20 12:20 | XR ---
EXAMINATION TYPE: XR pelvis AP view DATE OF EXAM: 12/20/2022 CLINICAL HISTORY: Fall injury with pain. TECHNIQUE: 2 frontal views of the pelvis are obtained. COMPARISON: CT abdomen and pelvis September 20, 2022. FINDINGS: There is no acute displaced fracture evident in the pelvis. Moderate axial joint space los s in both hips is redemonstrated. Sacroiliac joints appear symmetric and within normal limits. Pubic symphysis is intact. Overlying left-sided pelvic surgical clip is noted. IMPRESSION: There is no acute displaced fracture in the pelvis.
--- NOTE | 2022-12-20 12:22 | XR ---
EXAMINATION TYPE: XR chest 1V portable DATE OF EXAM: 12/20/2022 COMPARISON: Chest x-ray September 18, 2021 HISTORY: Fall injury with pain. TECHNIQUE: Single frontal view of the chest is obtained. FINDINGS: There is chronic parenchymal changes bilaterally without suspicious focal air space opacit y, pleural effusion, or pneumothorax seen. The cardiac silhouette size is stable and within normal l imits. The osseous structures are intact. IMPRESSION: Chronic changes without acute pulmonary process.
--- NOTE | 2022-12-20 13:03 | CT ---
EXAMINATION TYPE: CT brain levon wo con DATE OF EXAM: 12/20/2022 COMPARISON: 09/26/2019 HISTORY: Fall, pain CT DLP: 2214.1 mGycm Automated exposure control for dose reduction was used. TECHNIQUE: CT scan of the head and cervical spine are performed without contrast. FINDINGS: There is no acute intracranial hemorrhage or midline shift identified. There is diffuse v entricular and sulcal prominence consistent with diffuse age-related cerebral atrophy. There is low-a ttenuation in the periventricular white matter consistent with chronic small vessel ischemic change. Intracranial atherosclerotic changes are noted. Changes of chronic sinusitis. Orbits are symmetric. Assessment the spinal canal limited due to artifact and resolution. There is multilevel severe degene rative disc disease and facet arthropathy with multilevel foraminal encroachment. Multilevel canal st enosis suspected. Recommend follow-up MRI. There is slight anterior listhesis of C7 on T1 appears deg enerative. No definite acute fracture. Localized demineralization along the base of the C2 level may be related to osteopenia rather than an intraosseous lesion and could be followed with subsequent MRI . The thyroid tissue appears to be heterogeneous and there is a lobulated density along the left para tracheal line which could be related to an exophytic thyroid nodule versus area of pathologic adenopa thy recommend follow-up thyroid ultrasound. IMPRESSION: 1. There is no acute fracture or dislocation evident in the cervical spine. Multilevel canal stenosis and foraminal encroachment suspected recommend follow-up MRI 2. No acute intracranial hemorrhage, mass effect, or midline shift is seen. 3. There is a mediastinal soft tissue mass which could be related to exophytic thyroid nodule on the left paratracheal line. SPECT right-sided thyroid nodule. Recommend soft tissue neck ultrasound and s hort-term basis to assess for thyroid nodule versus adenopathy.
--- NOTE | 2022-12-20 13:09 | CT ---
EXAMINATION TYPE: CT chest w con CT DLP: 2214.1 mGycm, Automated exposure control for dose reduction was used. DATE OF EXAM: 12/20/2022 12:38 PM COMPARISON: CT Angio-Seal 09/26/2019 CLINICAL INDICATION:Female, 72 years old with history of fall down flight of stairs, chest pain, thin ners, Fall TECHNIQUE: Multiple axial images were obtained through the chest. Sagittal and coronal reformats were created for review. Contrast used:100 mL of Isovue 300 with IV Contrast Oral contrast used: none. FINDINGS: LUNGS/ PLEURA: No evidence focal consolidation, pneumothorax or pleural effusion. AIRWAY: Patent and unremarkable. HEART: The heart is mildly enlarged for size. MEDIASTINUM: No gross evidence of adenopathy. VASCULATURE: No aortic aneurysm. MUSCULOSKELETAL: No acute osseous abnormalities, multilevel disc degeneration changes throughout the spine. The vertebral bodies appear intact. Spinal alignment is appropriate. Scattered degeneration ch anges are seen throughout the spine. SOFT TISSUES/LYMPH NODES: Left thyroid gland nodule measuring up to 21 mm. LOWER NECK: No significant findings. UPPER ABDOMEN: High density within the stomach lumen likely representing postsurgical change. IMPRESSION: 1. Right rib #9 partially visualized could have a nondisplaced fracture partially visualized. Correl ate with point tenderness. No other fractures identified. 2. Left thyroid gland nodule measuring up to 20 mm correlate with thyroid ultrasound as clinically w arranted. This is felt to be present in 2019.
[2022-12-20] MEDS ORDERED: ACETAMINOPHEN TAB 500 MG TAB PO STA (13:13)
--- NOTE | 2022-12-20 13:34 | XR ---
EXAMINATION TYPE: XR hand complete RT DATE OF EXAM: 12/20/2022 CLINICAL HISTORY: Pain after injury. TECHNIQUE: Frontal, lateral and oblique images of the right hand are obtained. COMPARISON: None. FINDINGS: There is no acute fracture/dislocation evident in the right hand. Mild to moderate narrowi ng and spurring throughout the PIP and DIP joints of the phalanges. There is abnormal widening of the scapholunate space. Lateral view shows increased volar tilting of the scaphoid. Lunate capitate rela tionship is not well visualized. Underlying DISI is suspected. Overlying soft tissue is unremarkable. Impression: As above.
--- NOTE | 2022-12-20 13:35 | XR ---
EXAMINATION TYPE: XR elbow complete RT DATE OF EXAM: 12/20/2022 CLINICAL HISTORY: Falling injury with pain TECHNIQUE: Frontal, lateral and oblique images of the right elbow are obtained. COMPARISON: Right elbow x-ray April 01, 2022 FINDINGS: There is no acute fracture/dislocation evident in the right elbow. No abnormal fat pad si gns are seen. Large spur from the olecranon at distal triceps tendon attachment is seen. Overlying c lothing material is present. IMPRESSION: There is no acute fracture or dislocation in the right elbow.
--- NOTE | 2022-12-20 13:36 | XR ---
EXAMINATION TYPE: XR shoulder complete RT DATE OF EXAM: 12/20/2022 CLINICAL HISTORY: Injury with pain TECHNIQUE: Three views of the right shoulder are obtained. COMPARISON: None. FINDINGS: Osseous structures are demineralized. Overlying clothing material is present. There is no acute fracture/dislocation evident in the right shoulder. Mild to moderate narrowing at the acromiocl avicular joint. Glenohumeral joint is maintained. The visualized ribs are intact and unremarkable. IMPRESSION: There is no acute fracture or dislocation in the right shoulder.
--- NOTE | 2022-12-20 13:38 | XR ---
EXAMINATION TYPE: XR knee complete bilateral DATE OF EXAM: 12/20/2022 CLINICAL HISTORY: Pain after injury. TECHNIQUE: Three views of the bilateral knees are obtained. COMPARISON: None. FINDINGS: There is no acute fracture/dislocation evident in either knee. Severe narrowing and spurri ng lateral tibiofemoral compartment bilaterally is identified. Moderate to severe narrowing and spurr ing patellofemoral compartment bilaterally is seen. There is small to moderate size for patellar join t effusion on the left and large-sized suprapatellar joint effusion on the right. Osseous structures are demineralized. Genu varum positioning bilaterally is seen. IMPRESSION: As above.
[2022-12-20 13:54] LABS: Basophils # (A) 0.1 k/uL (0-0.2); Basophils % (A) 1 %; Eosinophils # (A) 0.1 k/uL (0-0.7); Eosinophils % (A) 0 %; HCT 43.3 % (34.0-46.0); HGB 14.3 gm/dL (11.4-16.0); Lymphocytes # (A) 2.3 k/uL (1.0-4.8); Lymphocytes % (A) 17 %; Mean Platelet Volume 7.7; Monocytes # (A) 2.3 k/uL (0-1.0); Monocytes % (A) 17 %; Neutrophils # (A) 8.5 k/uL (1.3-7.7); Neutrophils % (A) 61 %; Platelet Count 194 k/uL (150-450); RBC 4.76 m/uL (3.80-5.40); RDW 13.9 % (11.5-15.5); WBC 13.8 k/uL (3.8-10.6)
[2022-12-20 14:05] VITALS: TEMP 97.7
--- NOTE | 2022-12-20 14:21 | ED ---
Fall HPI - General Chief Complaint: Fall Stated Complaint: Fall Time Seen by Provider: 12/20/22 11:40 Source: patient Mode of arrival: wheelchair - History of Present Illness Initial Comments: 72-year-old female presents to the emergency department after she sustained a fall. She was on her way to see her orthopedic surgeon whose going to put injections into her knees. Reports that her niece came down she went down a full flight of carpeted stairs. She did multiple somersaults. Does admit to hitting her head. She does take Eliquis fo DVT. Admits to headache and some ne ck pain. her helped her up off the floor area and she has been ambulatory. She did not take anything for pain. Reports to pain in her right shoulder, right elbow, right pinky finger. Has pain in both knees. Denies any chest pain. Does have some sternal tenderness to palpation. Not suffer any loss of consciousness. No visual changes at this time. No vomiting. No other alleviating, precipitating or modifying factors - Related Data Home Medications Medication Instructions Recorded Confirmed Apixaban [Eliquis] 5 mg PO BID 07/29/20 11/18/22 allopurinoL [Zyloprim] 100 mg PO DAILY 07/29/20 11/18/22 clonazePAM [KlonoPIN] 0.5 mg PO DIRECTED PRN 07/29/20 11/18/22 Furosemide [Lasix] 40 mg PO DAILY 08/26/21 11/18/22 Pregabalin [Lyrica] 75 mg PO BID 08/26/21 11/18/22 Diazepam 10mg/Baclofen 1 supp VAGINAL HS PRN 09/18/21 11/18/22 10mg/Gabapentin 300mg Vaginal Suppository Lutein/Zeaxanthin 1 each PO DAILY #0 09/18/21 11/18/22 [Lutein-Zeaxanthin 20-4 mg Softgel] Sennosides [Senna] 8.6 mg PO BID 09/18/21 11/18/22 buPROPion HCL [buPROPion HCL SR] 200 mg PO BID 09/18/21 11/18/22 lisinopriL [Prinivil] 20 mg PO 1200 09/18/21 11/18/22 Magnesium 400 mg PO DAILY 12/02/21 11/18/22 Pravastatin Sodium [Pravachol] 20 mg PO 1200 12/02/21 11/18/22 Clotrimazole/Betameth Cream 1 applic TOPICAL BID 03/30/22 11/18/22 [Lotrisone] Potassium Chloride [Klor-Con 20] 20 meq PO DAILY 03/30/22 11/18/22 Venlafaxine HCl ER [Effexor XR] 75 mg PO 1200 09/20/22 11/18/22 polyethylene glycoL 3350 [Miralax] 17 gm PO BID PRN 09/20/22 11/18/22 Cyanocobalamin (Vitamin B-12) 1,000 mcg PO DAILY 11/18/22 11/18/22 [Vitamin B-12] Ferrous Sulfate [Iron (65 MG 65 mg PO DAILY 11/18/22 11/18/22 Elemental)] Previous Rx's Medication Instructions Recorded Ciprofloxacin HCl [Cipro] 500 mg PO Q12HR 10 Days #5 tab 09/21/22 Omeprazole [PriLOSEC] 40 mg PO DAILY #14 cap 11/22/22 Allergies Allergy/AdvReac Type Severity Reaction Status Date / Time itraconazole Allergy Unknown Verified 12/20/22 11:43 ondansetron [From Zofran] AdvReac severe Verified 12/20/22 11:43 burning @IV site, itching Review of Systems ROS Statement: Those systems with pertinent positive or pertinent negative responses have been documented in the HPI. ROS Other: All systems not noted in ROS Statement are negative. Past Medical History Past Medical History: Hypertension, Pulmonary Embolus (PE) Additional Past Medical History / Comment(s): DDD. PE September 2019. hx gout. leiden factor V, rich foot edema,, new rich leg edema( pt to [facility]), constipation, diverticulosis, eczema, severe urinary incontinece- uses brief, pt states dx with COVID 09/18/21 History of Any Multi-Drug Resistant Organisms: None Reported Past Surgical History: Bariatric Surgery, Cholecystectomy, Hysterectomy, Tonsillectomy Additional Past Surgical History / Comment(s): cataract sx. Gastric stapling in 1979. Cataract surgery 2015. Colonoscopy June 2020. DEDRA/BSO with umbilical hernia repair in September 2020, cataract surgery Past Anesthesia/Blood Transfusion Reactions: No Reported Reaction Past Psychological History: Anxiety, Depression Smoking Status: Never smoker Past Alcohol Use History: None Reported Past Drug Use History: None Reported - Past Family History Mother Family Medical History: Myocardial Infarction (RI) Father Family Medical History: Myocardial Infarction ([place]) Brother(s) Family Medical History: Deep Vein Thrombosis (DVT), Myocardial Infarction (RI), Pulmonary Embolus General Exam Limitations: no limitations General appearance: alert, in no apparent distress Head exam: Present: atraumatic, normocephalic, normal inspection Eye exam: Present: normal appearance, PERRL, EOMI. Absent: scleral icterus, conjunctival injection, periorbital swelling ENT exam: Present: normal exam, mucous membranes moist Neck exam: Present: normal inspection. Absent: tenderness, meningismus, lymphadenopathy Respiratory exam: Present: normal lung sounds bilaterally. Absent: respiratory distress, wheezes, rales, rhonchi, stridor Cardiovascular Exam: Present: regular rate, normal rhythm, normal heart sounds. Absent: systolic murmur, diastolic murmur, rubs, gallop, clicks GI/Abdominal exam: Present: soft, normal bowel sounds. Absent: distended, tenderness, guarding, rebound, rigid Extremities exam: Present: normal inspection, full ROM, normal capillary refill. Absent: tenderness, pedal edema, joint swelling, calf tenderness Back exam: Present: normal inspection Neurological exam: Present: alert, oriented X3, CN II-XII intact Psychiatric exam: Present: normal affect, normal mood Skin exam: Present: warm, dry, intact, other (Ecchymosis over right shoulder). Absent: rash Course Vital Signs 12/20/22 12/20/22 12/20/22 11:40 14:00 14:33 Temperature 97.5 F L 97.7 F Pulse Rate 78 73 80 Respiratory 18 20 18 Rate Blood Pressure 116/70 121/75 106/71 O2 Sat by Pulse 97 99 96 Oximetry 12/20/22 15:18 Temperature Pulse Rate 80 Respiratory 18 Rate Blood Pressure 103/70 O2 Sat by Pulse 97 Oximetry Medical Decision Making - Medical Decision Making Was pt. sent in by a medical professional or institution (, PA, SMOKE JUMPER, urgent care, hospital, or correction...) When possible be specific @ -No Did you speak to anyone other than the patient for history (EMS, parent, family, police, friend...)? What history was obtained from this source @ -No Did you review nursing and triage notes (agree or disagree)? Why? @ -I reviewed and agree with nursing and triage notes Were old charts reviewed (outside hosp., previous admission, EMS record, old EKG, old radiological studies, urgent care reports/EKG's, correction records)? Report findings @ -No old charts were reviewed Differential Diagnosis (chest pain, altered mental status, abdominal pain women, abdominal pain men, vaginal bleeding, weakness, fever, dyspnea, syncope, headache, dizziness, GI bleed, back pain, seizure, CVA, palpatations, mental health)? @ -Differential Musculoskeletal Muscular strain, contusion, ligament sprain, fracture, arthritis, septic arthritis, bursitis, cellulitis, muscle spasm, nerve compression, DVT, arterial occlusion, herpes zoster, electrolyte abnormality, tumor.... This is not meant to be in all inclusive list EKG interpreted by me (3pts min.). @ -yes X-rays interpreted by me (1pt min.). @ -yes CT interpreted by me (1pt min.). @ -yes U/S interpreted by me (1pt. min.). @ -None done What testing was considered but not performed or refused? (CT, X-rays, U/S, labs)? Why? @ -None What meds were considered but not given or refused? Why? @ -None Did you discuss the management of the patient with other professionals (professionals i.e. , PA, SMOKE JUMPER, lab, RT, psych nurse, health and social care teacher, flower maker, teacher, ict customer support officer, disability case manager)? Give summary @ -No Was smoking cessation discussed for >3mins.? @ -No Was critical care preformed (if so, how long)? @ -35 minutes Were there social determinants of health that impacted care today? How? (Homelessness, low income, unemployed, alcoholism, drug addiction, transportation, low edu. Level, literacy, decrease access to med. care, long term, rehab)? @ -No Was there de-escalation of care discussed even if they declined (Discuss DNR or withdrawal of care, Hospice)? DNR status @ -No What co-morbidities impacted this encounter? (DM, HTN, Smoking, COPD, CAD, Cancer, CVA, ARF, Chemo, Hep., AIDS, mental health diagnosis, sleep apnea, morbid obesity)? @ -None Was patient admitted / discharged? Hospital course, mention meds given and route, prescriptions, significant lab abnormalities, going to OR and other pertinent info. Upon patient was placed to room 1. A thorough history and physical exam was performed with IV is established and laboratory studies are conducted. Chest and pelvic x-rays performed. Patient additionally goes for a CT of her head, cervical spine, chest. X-rays are performed of the patient's right elbow, right hand, right shoulder and bilateral knees. The results of imaging are discussed with the patient. She is able to get up and a bili on her own. I did discuss the multiple findings including the possible right rib fracture and the scapholunate dissociation. Patient has no wrist pain. We did make an appoin tment with her orthopedic surgeon that she missed her appointment today. She is discuss the x-ray findings of her right hand with the orthopedic surgeon for further management. She was found to have a thyroid nodule which she needs to talk her primary care doctor about in order to get a thyroid ultrasound. Return for any new or worsening symptoms per patient was agreeable to plan she was discharged home in stable condition Undiagnosed new problem with uncertain prognosis? @ -No Drug Therapy requiring intensive monitoring for toxicity (Heparin, Nitro, Insulin, Cardizem)? @ -No Were any procedures done? @ -No Diagnosis/symptom? @ -Fall downstairs, right shoulder pain, right knee pain Acute, or Chronic, or Acute on Chronic? @ -acute Uncomplicated (without systemic symptoms) or Complicated (systemic symptoms)? @ -complicated Side effects of treatment? @ -No Exacerbation, Progression, or Severe Exacerbation? @ -No Poses a threat to life or bodily function? How? (Chest pain, [place], [place], pneumonia, PE, COPD, DKA, ARF, appy, cholecystitis, CVA, Diverticulitis, Homicidal, Suicidal, threat to staff... and all critical care pts) @ -No - Lab Data Result diagrams: 12/20/22 13:45 12/20/22 13:45 Lab Results 12/20/22 12/20/22 12/20/22 Range/Units 13:45 13:45 13:45 WBC 13.8 H (3.8-10.6) k/uL RBC 4.76 (3.80-5.40) m/uL Hgb 14.3 (11.4-16.0) gm/dL Hct 43.3 (34.0-46.0) % MCV 91.0 (80.0-100.0) fL MCH 30.0 (25.0-35.0) pg MCHC 33.0 (31.0-37.0) g/dL RDW 13.9 (11.5-15.5) % Plt Count 194 (150-450) k/uL MPV 7.7 Neutrophils % 61 % Lymphocytes % 17 % Monocytes % 17 % Eosinophils % 0 % Basophils % 1 % Neutrophils # 8.5 H (1.3-7.7) k/uL Lymphocytes # 2.3 (1.0-4.8) k/uL Monocytes # 2.3 H (0-1.0) k/uL Eosinophils # 0.1 (0-0.7) k/uL Basophils # 0.1 (0-0.2) k/uL PT 10.3 (9.0-12.0) sec INR 1.0 (<1.2) APTT 24.2 (22.0-30.0) sec Sodium 134 L (137-145) mmol/L Potassium 4.5 (3.5-5.1) mmol/L Chloride 93 L (98-107) mmol/L Carbon Dioxide 29 (22-30) mmol/L Anion Gap 12 mmol/L BUN 25 H (7-17) mg/dL Creatinine 0.97 (0.52-1.04) mg/dL Est GFR (CKD-EPI)AfAm 67 (>60 ml/min/1.73 sqM) Est GFR (CKD-EPI)NonAf 58 (>60 ml/min/1.73 sqM) Glucose 98 (74-99) mg/dL Calcium 11.2 H (8.4-10.2) mg/dL Total Bilirubin 0.7 (0.2-1.3) mg/dL AST 25 (14-36) U/L ALT 23 (4-34) U/L Alkaline Phosphatase 114 (38-126) U/L Total Protein 7.9 (6.3-8.2) g/dL Albumin 4.7 (3.5-5.0) g/dL - EKG Data EKG Comments: EKG demonstrates sinus rhythm with a rate of 76. MA interval 175. QRS 103. QT C 394. No acute ST segment elevations or depressions Critical Care Time Critical Care Time: Yes Critical Care Time: 35 minutes as patient is a trauma activation Disposition Clinical Impression: Fall down stairs, Right elbow pain, Right shoulder pain, Finger pain, right, Concussion without loss of consciousness, Bilateral knee pain Disposition: HOME SELF-CARE Condition: Stable Instructions (If sedation given, give patient instructions): Fall Prevention for Older Adults (ED) Additional Instructions: Take Tylenol for pain. Follow up with your doctor in 2-4 days. You have a nodule on your left thyroid lobe. This needs an ultrasound and to be followed closely. Talk to your orthopedic about your wrist findings - possible scapholunate dissociation. Return to the emergency department for any new or worsening symptoms Is patient prescribed a controlled substance at d/c from ED?: No Referrals: Olga Andersen MD [Primary Care Provider] - 1-2 days Harpreet Garces DO [Doctor of Osteopathic Medicine] - 12/22/22 11:00 am Time of Disposition: 14:51
[2022-12-20 14:23] LABS: Partial Thromboplastin Time 24.2 sec (22.0-30.0); Prothrombin Time 10.3 sec (9.0-12.0)
[2022-12-20 14:28] LABS: Albumin 4.7 g/dL (3.5-5.0); Calcium 11.2 mg/dL (8.4-10.2); Potassium 4.5 mmol/L (3.5-5.1); Total Bilirubin 0.7 mg/dL (0.2-1.3); Total Protein 7.9 g/dL (6.3-8.2)
[2022-12-20 14:35] VITALS: PULSE 80; RESP 18
[2022-12-20 15:20] VITALS: BP 103/70
== END 2022-12-20 15:20 | disposition home or self-care (01) ==
LOC: EC 11:32
DX: S06.0X0A Concussion without loss of consciousness, initial encounter (principal); M25.511 Pain in right shoulder; M25.521 Pain in right elbow; M79.644 Pain in right finger(s); M25.561 Pain in right knee; M25.562 Pain in left knee; I10 Essential (primary) hypertension; F41.9 Anxiety disorder, unspecified; F32.A Depression, unspecified; R40.2410 Glasgow coma scale score 13-15, unspecified time; Z88.3 Allergy status to other anti-infective agents; Z88.8 Allergy status to other drugs, medicaments and biological substances; Z79.01 Long term (current) use of anticoagulants; Z79.899 Other long term (current) drug therapy; Z86.16 Personal history of COVID-19; W10.9XXA Fall (on) (from) unspecified stairs and steps, initial encounter
CPT/HCPCS: 99285; 36415; 93005; 80053; 85025; 85610; 85730; 73562; 72170; 73030; 73080; 73130; 71045; 72125; 70450; 71260; L0120; Q9967

== ENCOUNTER 2023-01-08 04:39 | Inpatient (IN) | payer MEDICARE, OTHER ==
--- NOTE | 2023-01-08 04:49 | ED ---
General Adult HPI - General Stated complaint: fall Time Seen by Provider: 01/08/23 04:45 - History of Present Illness Initial comments: Dictation was produced using [employer] dictation software. please excuse any grammatical, word or spelling errors. Chief Complaint: 72-year-old female presents after fall History of Present Illness: A 72-year-old female who is brought in by EMS after fall. Patient allegedly fell twice. She fell in the kitchen once and states that she tried to get up and fell down 3 or 4 steps. The steps were allegedly concrete. Patient takes and I coagulation medications. She has multiple comorbidities. EMS states that patient over the last 2-3 days has been a little confused. Patient complaining of right shoulder pain. She was unable to get up. She allegedly was on the ground for 4 hours. Patient states she fell because she has bad knees. She follows up with orthopedic on outpatient basis. The ROS documented in this emergency department record has been reviewed and confirmed by me. Those systems with pertinent positive or negative responses have been documented in the HPI. All other systems are other negative and/or noncontributory. PHYSICAL EXAM: General Impression: Alert and oriented x3, not in acute distress HEENT: Ecchymoses over the right forehead/gnosticist area, extra-ocular movements intact, pupils equal and reactive to light bilaterally, mucous membranes moist. Cardiovascular: Heart regular rate and rhythm Chest: Able to complete full sentences, no retractions, no tachypnea Abdomen: abdomen soft, non-tender, non-distended, no organomegaly Musculoskeletal: Pulses present and equal in all extremities, no peripheral edema, mild palpatory tenderness to the right shoulder with intact passive range of motion Motor: no focal deficits noted Neurological: CN II-XII grossly intact, no focal motor or sensory deficits noted Skin: Intact with no visualized rashes Psych: Normal affect and mood ED course: 72-year-old female presents after fall. Vital signs upon arrival are within acceptable limits. Patient meets criteria for trauma level II activation. Patient received and trauma bay #1. Patient is alert and oriented 4. She does not appear to be confused. GCS of 15. No obvious traumatic injuries on physical examination. She does not appear to be in extremis. Nursing notes and chart review was performed EKG interpreted by me: Ventricular rate 60, sinus rhythm,. 190, QRS 11, QTC 398. No MD prolongation, no QTC prolongation, no ST or T-wave changes noted. Overall, this EKG is unremarkable Was pt. sent in by a medical professional or institution ([facility], PRIMARY SCHOOL TEACHER, urgent care, hospital, or long-term...) When possible be specific @ -No Did you speak to anyone other than the patient for history (EMS, parent, family, police, friend...)? What history was obtained from this source @ -EMS. More history was obtained from patient's at the bedside. He states that patient has been more confused over the last several days. She isn't suffering falls. She has a bruise on her head from a fall suffered Did you review nursing and triage notes (agree or disagree)? Why? @ -I reviewed and agree with nursing and triage notes Were old charts reviewed (outside hosp., previous admission, EMS record, old EK G, old radiological studies, urgent care reports/EKG's, long-term records)? Report findings @ -Prior history of physical reviewed, prior discharge summary reviewed Differential Diagnosis (chest pain, altered mental status, abdominal pain women, abdominal pain men, vaginal bleeding, musculoskeletal, weakness, fever, dyspnea, syncope, headache, dizziness, GI bleed, back pain, seizure, CVA, palpatations, mental health)? @ -Differential Musculoskeletal: Muscular strain, contusion, ligament sprain, fracture, arthritis, septic arthritis, bursitis, cellulitis, muscle spasm, nerve compression, DVT, arterial occlusion, herpes zoster, electrolyte abnormality, tumor.... This is not meant to be in all inclusive list EKG interpreted by me (3pts min.). @ -See above X-rays interpreted by me (1pt min.). @ -Chest x-ray and pelvis x-ray are unremarkable. CT interpreted by me (1pt min.). @ -Computed tomography scan of the chest, abdomen and pelvis shows no acute traumatic processes. Right Shoulder was occluded and CT films showed no traumatic processes U/S interpreted by me (1pt. min.). @ -None done What testing was considered but not performed or refused? (CT, X-rays, U/S, labs)? Why? @ -None What meds were considered but not given or refused? Why? @ -None Did you discuss the management of the patient with other professionals (professionals i.e. , PA, PRIMARY SCHOOL TEACHER, lab, RT, psych nurse, social sciences chair, recreational vehicle repairer, teacher, commanding officer motorized squad, renewable energy project manager)? Give summary @ -Case discussed with on-call trauma surgeon, Dr. An Was smoking cessation discussed for >3mins.? @ -No Was critical care preformed (if so, how long)? @ -No Were there social determinants of health that impacted care today? How? (Homelessness, low income, unemployed, alcoholism, drug addiction, transportati on, low edu. Level, literacy, decrease access to med. care, group home, rehab)? @ -No Was there de-escalation of care discussed even if they declined (Discuss DNR or withdrawal of care, Hospice)? DNR status @ -No What co-morbidities impacted this encounter? (DM, HTN, Smoking, COPD, CAD, Cancer, CVA, ARF, Chemo, Hep., AIDS, mental health diagnosis, sleep apnea, morbid obesity)? @ -History of anticoagulation medication, history of factor V Leiden Was patient admitted / discharged? Hospital course, mention meds given and route, prescriptions, significant lab abnormalities, going to OR and other pertinent info. @ -Laboratory evaluation obtained. CBC is unremarkable. Metabolic panel shows sodium 129, potassium of 5.7. Mildly elevated renal markers above her baseline suggesting dehydration. Pending urine studies. Disposition options were discussed with patient. She does not feel well enough to go home. Given that patient's here primarily for fall she'll be observed under the trauma service. Dr. An willing to accept patients care especially given that patient is here for a trauma issue. Medicine will be consulted for care of metabolic derangement Undiagnosed new problem with uncertain prognosis? @ -No Drug Therapy requiring intensive monitoring for toxicity (Heparin, Nitro, Insulin, Cardizem)? @ -No Were any procedures done? @ -No Diagnosis/symptom? Acute, or Chronic, or Acute on Chronic? Uncomplicated (wit hout systemic symptoms) or Complicated (systemic symptoms)? @ -1. Acute fall Side effects of treatment? @ -No Exacerbation, Progression, or Severe Exacerbation? @ -No Poses a threat to life or bodily function? How? (Chest pain, [place], [place], pneumonia, PE, COPD, DKA, ARF, appy, cholecystitis, CVA, Diverticulitis, Homicidal, Suicidal, threat to staff... and all critical care pts) @ -Yes - Related Data Home Medications Medication Instructions Recorded Confirmed Apixaban [Eliquis] 5 mg PO BID 07/29/20 01/08/23 allopurinoL [Zyloprim] 100 mg PO DAILY 07/29/20 01/08/23 clonazePAM [KlonoPIN] 0.5 mg PO DAILY PRN 07/29/20 01/08/23 Furosemide [Lasix] 20 mg PO DAILY 08/26/21 01/08/23 Pregabalin [Lyrica] 75 mg PO BID 08/26/21 01/08/23 Diazepam 10mg/Baclofen 1 supp VAGINAL HS PRN 09/18/21 01/08/23 10mg/Gabapentin 300mg Vaginal Suppository Sennosides [Senna] 8.6 mg PO BID 09/18/21 01/08/23 buPROPion HCL [buPROPion HCL SR] 200 mg PO BID 09/18/21 01/08/23 lisinopriL [Prinivil] 20 mg PO DAILY 09/18/21 01/08/23 Magnesium 400 mg PO DAILY 12/02/21 01/08/23 Pravastatin Sodium [Pravachol] 20 mg PO DAILY 12/02/21 01/08/23 Clotrimazole/Betameth Cream 1 applic TOPICAL BID 03/30/22 01/08/23 [Lotrisone] Potassium Chloride [Klor-Con 20] 20 meq PO DAILY 03/30/22 01/08/23 Venlafaxine HCl ER [Effexor XR] 75 mg PO DAILY 09/20/22 01/08/23 polyethylene glycoL 3350 [Miralax] 17 gm PO BID PRN 09/20/22 01/08/23 Cyanocobalamin (Vitamin B-12) 1,000 mcg PO DAILY 11/18/22 01/08/23 [Vitamin B-12] Ferrous Sulfate [Iron (65 MG 325 mg PO DAILY 11/18/22 01/08/23 Elemental)] Cholecalciferol [Vitamin D3 (125 125 mcg PO DAILY 01/08/23 01/08/23 Mcg = 5000 Iu)] Fluconazole [Diflucan] 200 mg PO DAILY 01/08/23 01/08/23 Lutein 6mg Tab 2 tab PO DAILY 01/08/23 01/08/23 Allergies Allergy/AdvReac Type Severity Reaction Status Date / Time itraconazole Allergy Unknown Verified 01/08/23 10:59 ondansetron [From Zofran] AdvReac severe Verified 01/08/23 10:59 burning @IV site, itching Review of Systems ROS Statement: Those systems with pertinent positive or pertinent negative responses have been documented in the HPI. ROS Other: All systems not noted in ROS Statement are negative. Past Medical History Past Medical History: Hypertension, Pulmonary Embolus (PE) Additional Past Medical History / Comment(s): DDD. PE September 2019. hx gout. leiden factor V, rich foot edema,, new rich leg edema( pt to call [facility]), constipation, diverticulosis, eczema, severe urinary incontinece- uses brief, pt states dx with COVID 09/18/21 History of Any Multi-Drug Resistant Organisms: None Reported Past Surgical History: Bariatric Surgery, Cholecystectomy, Hysterectomy, Tonsillectomy Additional Past Surgical History / Comment(s): cataract sx. Gastric stapling in 1979. Cataract surgery 2015. Colonoscopy June 2020. DEDRA/BSO with umbilical hernia repair in September 2020, cataract surgery Past Anesthesia/Blood Transfusion Reactions: No Reported Reaction Past Psychological History: Anxiety, Depression Smoking Status: Never smoker Past Alcohol Use History: None Reported Past Drug Use History: None Reported - Past Family History Mother Family Medical History: Myocardial Infarction ([place]) Father Family Medical History: Myocardial Infarction ([place]) Brother(s) Family Medical History: Deep Vein Thrombosis (DVT), Myocardial Infarction ([place]), Pulmonary Embolus Course Vital Signs 01/08/23 01/08/23 01/08/23 04:46 07:15 08:03 Temperature 98 F 98.2 F Pulse Rate 70 70 74 Respiratory 18 18 18 Rate Blood Pressure 130/90 147/62 142/60 O2 Sat by Pulse 98 96 97 Oximetry Medical Decision Making - Lab Data Result diagrams: 01/08/23 04:50 01/08/23 07:27 Lab Results 01/08/23 01/08/23 01/08/23 Range/Units 04:50 04:50 04:50 WBC 12.7 H (3.8-10.6) k/uL RBC 4.37 (3.80-5.40) m/uL Hgb 13.8 (11.4-16.0) gm/dL Hct 39.4 (34.0-46.0) % MCV 90.3 (80.0-100.0) fL MCH 31.6 (25.0-35.0) pg MCHC 35.0 (31.0-37.0) g/dL RDW 14.7 (11.5-15.5) % Plt Count 168 (150-450) k/uL MPV 8.2 Neutrophils % (Manual) 67 % Lymphocytes % (Manual) 12 % Monocytes % (Manual) 21 % Neutrophils # (Manual) 8.51 H (1.3-7.7) k/uL Lymphocytes # (Manual) 1.52 (1.0-4.8) k/uL Monocytes # (Manual) 2.67 H (0-1.0) k/uL Nucleated RBCs 0 (0-0) /100 WBC RBC Morphology Normal PT 10.4 (9.0-12.0) sec INR 1.0 (<1.2) APTT 22.2 (22.0-30.0) sec Sodium 129 L (137-145) mmol/L Potassium 5.7 H (3.5-5.1) mmol/L Chloride 100 (98-107) mmol/L Carbon Dioxide 21 L (22-30) mmol/L Anion Gap 8 mmol/L BUN 39 H (7-17) mg/dL Creatinine 1.17 H (0.52-1.04) mg/dL Est GFR (CKD-EPI)AfAm 53 (>60 ml/min/1.73 sqM) Est GFR (CKD-EPI)NonAf 46 (>60 ml/min/1.73 sqM) Glucose 113 H (74-99) mg/dL POC Glucose (mg/dL) (70-110) mg/dL POC Glu Machine Printer Hose ID Calcium 10.8 H (8.4-10.2) mg/dL Total Bilirubin 0.8 (0.2-1.3) mg/dL AST 48 H (14-36) U/L ALT 34 (4-34) U/L Alkaline Phosphatase 139 H (38-126) U/L Creatine Kinase 572 H (30-135) U/L Troponin I (0.000-0.034) ng/mL Total Protein 6.8 (6.3-8.2) g/dL Albumin 4.1 (3.5-5.0) g/dL Serum Alcohol <10 mg/dL Blood Type Blood Type Confirm Blood Type Recheck Bld Type Recheck Status Antibody Screen Spec Expiration Date 01/08/23 01/08/23 01/08/23 Range/Units 04:50 04:52 05:30 WBC (3.8-10.6) k/uL RBC (3.80-5.40) m/uL Hgb (11.4-16.0) gm/dL Hct (34.0-46.0) % MCV (80.0-100.0) fL MCH (25.0-35.0) pg MCHC (31.0-37.0) g/dL RDW (11.5-15.5) % Plt Count (150-450) k/uL MPV Neutrophils % (Manual) % Lymphocytes % (Manual) % Monocytes % (Manual) % Neutrophils # (Manual) (1.3-7.7) k/uL Lymphocytes # (Manual) (1.0-4.8) k/uL Monocytes # (Manual) (0-1.0) k/uL Nucleated RBCs (0-0) /100 WBC RBC Morphology PT (9.0-12.0) sec INR (<1.2) APTT (22.0-30.0) sec Sodium (137-145) mmol/L Potassium (3.5-5.1) mmol/L Chloride (98-107) mmol/L Carbon Dioxide (22-30) mmol/L Anion Gap mmol/L BUN (7-17) mg/dL Creatinine (0.52-1.04) mg/dL Est GFR (CKD-EPI)AfAm (>60 ml/min/1.73 sqM) Est GFR (CKD-EPI)NonAf (>60 ml/min/1.73 sqM) Glucose (74-99) mg/dL POC Glucose (mg/dL) 103 (70-110) mg/dL POC Glu Machine Printer Hose ID [email or web address] seolyn Calcium (8.4-10.2) mg/dL Total Bilirubin (0.2-1.3) mg/dL AST (14-36) U/L ALT (4-34) U/L Alkaline Phosphatase (38-126) U/L Creatine Kinase (30-135) U/L Troponin I <0.012 (0.000-0.034) ng/mL Total Protein (6.3-8.2) g/dL Albumin (3.5-5.0) g/dL Serum Alcohol mg/dL Blood Type A Negative Blood Type Confirm Blood Type Recheck No Previous Record Bld Type Recheck Status CABO Indicated Antibody Screen NEGATIVE Spec Expiration Date 01/11/2023 - 234401/08/23 Range/Units 05:35 WBC (3.8-10.6) k/uL RBC (3.80-5.40) m/uL Hgb (11.4-16.0) gm/dL Hct (34.0-46.0) % MCV (80.0-100.0) fL MCH (25.0-35.0) pg MCHC (31.0-37.0) g/dL RDW (11.5-15.5) % Plt Count (150-450) k/uL MPV Neutrophils % (Manual) % Lymphocytes % (Manual) % Monocytes % (Manual) % Neutrophils # (Manual) (1.3-7.7) k/uL Lymphocytes # (Manual) (1.0-4.8) k/uL Monocytes # (Manual) (0-1.0) k/uL Nucleated RBCs (0-0) /100 WBC RBC Morphology PT (9.0-12.0) sec INR (<1.2) APTT (22.0-30.0) sec Sodium (137-145) mmol/L Potassium (3.5-5.1) mmol/L Chloride (98-107) mmol/L Carbon Dioxide (22-30) mmol/L Anion Gap mmol/L BUN (7-17) mg/dL Creatinine (0.52-1.04) mg/dL Est GFR (CKD-EPI)AfAm (>60 ml/min/1.73 sqM) Est GFR (CKD-EPI)NonAf (>60 ml/min/1.73 sqM) Glucose (74-99) mg/dL POC Glucose (mg/dL) (70-110) mg/dL POC Glu Machine Printer Hose ID Calcium (8.4-10.2) mg/dL Total Bilirubin (0.2-1.3) mg/dL AST (14-36) U/L ALT (4-34) U/L Alkaline Phosphatase (38-126) U/L Creatine Kinase (30-135) U/L Troponin I (0.000-0.034) ng/mL Total Protein (6.3-8.2) g/dL Albumin (3.5-5.0) g/dL Serum Alcohol mg/dL Blood Type Blood Type Confirm A Negative Blood Type Recheck Bld Type Recheck Status Antibody Screen Spec Expiration Date Disposition Clinical Impression: Fall Disposition: ADMITTED IP TO THIS HOSP Condition: Fair
[2023-01-08 04:54] LABS: Glucose,Whole Blood 103 mg/dL (70-110)
[2023-01-08 05:20] LABS: ALT 34 U/L (4-34); AST 48 U/L (14-36); African American GFR (CKD) 53 (>60 ml/min/1.73 sqM); Albumin 4.1 g/dL (3.5-5.0); Alcohol <10 mg/dL; Alkaline Phosphatase 139 U/L (38-126); Anion Gap 8 mmol/L; Blood Urea Nitrogen 39 mg/dL (7-17); Calcium 10.8 mg/dL (8.4-10.2); Carbon Dioxide 21 mmol/L (22-30); Chloride 100 mmol/L (98-107); Creatine Kinase 572 U/L (30-135); Glucose 113 mg/dL (74-99); Non-African American GFR(CKD) 46 (>60 ml/min/1.73 sqM); Potassium 5.7 mmol/L (3.5-5.1); Sodium 129 mmol/L (137-145); Total Bilirubin 0.8 mg/dL (0.2-1.3); Total Protein 6.8 g/dL (6.3-8.2)
--- NOTE | 2023-01-08 05:27 | CT ---
EXAMINATION TYPE: CT brain jassonine wo con DATE OF EXAM: 01/08/2023 COMPARISON: 12/20/2022 HISTORY: FALL CT DLP: 1696.5 mGycm Automated exposure control for dose reduction was used. Images obtained of the brain and cervical spine with no contrast. There is mild enlargement of the ventricles. There is mild cerebral atrophy. There is no mass effect or midline shift. No sign of intracranial hemorrhage. Calvarium is intact. There is normal aeration o f the mastoid sinuses. There is some mucosal thickening in the sphenoid sinus. The cervical vertebra have normal alignment. There is some mild degenerative spur formation from C5 t o T1 with disc space narrowing. There is multilevel cervical hypertrophic facet arthropathy. Preverte bral soft tissues are intact. No compression fracture. No paraspinal mass. IMPRESSION: Cerebral atrophy. No acute intracranial abnormality. Cervical multilevel spondylotic changes. No fracture. No change compared to the old exam.
--- NOTE | 2023-01-08 05:28 | XR ---
EXAMINATION TYPE: XR chest 1V portable DATE OF EXAM: 01/08/2023 COMPARISON: 12/20/2022 HISTORY: Fall. Pain TECHNIQUE: Single view FINDINGS: Heart and mediastinum are normal. Lungs are clear. No pleural effusion or pneumothorax. Tra phil is midline. Thoracic aorta is atheromatous. IMPRESSION: No active cardiopulmonary disease. No change.
--- NOTE | 2023-01-08 05:29 | XR ---
EXAMINATION TYPE: XR pelvis AP view DATE OF EXAM: 01/08/2023 COMPARISON: 12/20/2022 HISTORY: Pain TECHNIQUE: Single view FINDINGS: The pelvic ring is intact. Proximal femurs and hip joints are intact. Sacroiliac joints are intact. IMPRESSION: Negative pelvis xray exam. No fracture.
[2023-01-08 05:36] LABS: HCT 39.4 % (34.0-46.0); HGB 13.8 gm/dL (11.4-16.0); MCH 31.6 pg (25.0-35.0); MCV 90.3 fL (80.0-100.0); Mean Platelet Volume 8.2; Platelet Count 168 k/uL (150-450); RBC 4.37 m/uL (3.80-5.40); RDW 14.7 % (11.5-15.5); WBC 12.7 k/uL (3.8-10.6)
--- NOTE | 2023-01-08 05:36 | CT ---
EXAMINATION TYPE: CT ChestAbdPelvis w con DATE OF EXAM: 01/08/2023 COMPARISON: CT abdomen 09/20/2022 HISTORY: FALL CT DLP: 3369.4 mGycm Automated exposure control for dose reduction was used. CONTRAST: Performed with IV Contrast, patient injected with 100 mL of Isovue 300. Images obtained from the thoracic inlet to the floor the pelvis with IV contrast. The lungs are clear of consolidation. No pleural effusion or pneumothorax. No mediastinal adenopathy. There are no hilar masses. Heart size is normal. No pericardial effusion. There is minimal scarring or subsegmental atelectasis left lung base. Liver spleen appear intact. There are clips from gastric bariatric surgery. No pancreatic mass. The b ile ducts are not dilated. There are clips from cholecystectomy. There is no adrenal mass. Kidneys show satisfactory contrast opacification. No hydronephrosis. There is a 3 cm cortical cyst in the lower pole right kidney. No retroperitoneal adenopathy. Appendix is po sterior and appears normal. Ureters are not dilated. Bladder distends smoothly. No inguinal hernia. N o free fluid in the pelvis. There are multiple sigmoid diverticula. No diverticulitis. There is no mesenteric edema. No ascites or free air. No sign of a bowel obstruction. The lumbar vertebra show severe narrowing at L4-5 discs. No lumbar compression fracture. Thoracic spi ne is intact. There is multilevel spondylotic changes. Sternum is intact. The bony pelvis is intact. Hip joints are intact. The proximal femurs are intact. Sacroiliac joints are intact. No evidence of a rib fracture. IMPRESSION: No evidence of acute traumatic injury in the chest abdomen pelvis.
[2023-01-08] MEDS ORDERED: SODIUM CHLORIDE 0.9% 1,000 ML IV STA (05:37)
[2023-01-08] MEDS ORDERED: NALOXONE 0.4 MG/ML 1 ML VIAL IV PRN (06:48)
[2023-01-08 06:54] LABS: Lymphocytes # (M) 1.52 k/uL (1.0-4.8); Monocytes # (M) 2.67 k/uL (0-1.0); Neutrophils # (M) 8.51 k/uL (1.3-7.7); Neutrophils % (M) 67 %; Nucleated Red Blood Cells 0 /100 WBC (0-0); RBC Morphology Normal; Total Cells Counted 100
[2023-01-08] MEDS: SODIUM CHLORIDE 0.9% 1,000 ML IV SCH ×3 (06:57→23:05)
--- NOTE | 2023-01-08 09:44 | P.GSHP ---
History of Present Illness H&P Date: 01/08/23 Chief Complaint: Ground-level fall This a 72-year-old female who was admitted through the emergency room as a ground level fall. Patient was noted to be hyponatremic. Patient was admitted for medical observation. She has complaints of some right shoulder pain. Past Medical History Past Medical History: Hypertension, Pulmonary Embolus (PE) Additional Past Medical History / Comment(s): DDD. PE September 2019. hx gout. leiden factor V, rich foot edema,, new rich leg edema( pt to call [facility]), constipation, diverticulosis, eczema, severe urinary incontinece- uses brief, pt states dx with COVID 09/18/21 History of Any Multi-Drug Resistant Organisms: None Reported Past Surgical History: Bariatric Surgery, Cholecystectomy, Hysterectomy, Tons illectomy Additional Past Surgical History / Comment(s): cataract sx. Gastric stapling in 1979. Cataract surgery 2015. Colonoscopy June 2020. DEDRA/BSO with umbilical hernia repair in September 2020, cataract surgery Past Anesthesia/Blood Transfusion Reactions: No Reported Reaction Past Psychological History: Anxiety, Depression Smoking Status: Never smoker Past Alcohol Use History: None Reported Past Drug Use History: None Reported - Past Family History Mother Family Medical History: Myocardial Infarction ([place]) Father Family Medical History: Myocardial Infarction ([place]) Brother(s) Family Medical History: Deep Vein Thrombosis (DVT), Myocardial Infarction ([place]), Pulmonary Embolus Medications and Allergies Home Medications Medication Instructions Recorded Confirmed Type Apixaban [Eliquis] 5 mg PO BID 07/29/20 11/18/22 History allopurinoL [Zyloprim] 100 mg PO DAILY 07/29/20 11/18/22 History clonazePAM [KlonoPIN] 0.5 mg PO DIRECTED PRN 07/29/20 11/18/22 History Furosemide [Lasix] 40 mg PO DAILY 08/26/21 11/18/22 History Pregabalin [Lyrica] 75 mg PO BID 08/26/21 11/18/22 History Diazepam 10mg/Baclofen 1 supp VAGINAL HS PRN 09/18/21 11/18/22 History 10mg/Gabapentin 300mg Vaginal Suppository Lutein/Zeaxanthin 1 each PO DAILY #0 09/18/21 11/18/22 History [Lutein-Zeaxanthin 20-4 mg Softgel] Sennosides [Senna] 8.6 mg PO BID 09/18/21 11/18/22 History buPROPion HCL [buPROPion HCL SR] 200 mg PO BID 09/18/21 11/18/22 History lisinopriL [Prinivil] 20 mg PO 1200 09/18/21 11/18/22 History Magnesium 400 mg PO DAILY 12/02/21 11/18/22 History Pravastatin Sodium [Pravachol] 20 mg PO 1200 12/02/21 11/18/22 History Clotrimazole/Betameth Cream 1 applic TOPICAL BID 03/30/22 11/18/22 History [Lotrisone] Potassium Chloride [Klor-Con 20] 20 meq PO DAILY 03/30/22 11/18/22 History Venlafaxine HCl ER [Effexor XR] 75 mg PO 1200 09/20/22 11/18/22 History polyethylene glycoL 3350 [Miralax] 17 gm PO BID PRN 09/20/22 11/18/22 History Ciprofloxacin HCl [Cipro] 500 mg PO Q12HR 10 Days #5 tab 09/21/22 11/18/22 Rx Cyanocobalamin (Vitamin B-12) 1,000 mcg PO DAILY 11/18/22 11/18/22 History [Vitamin B-12] Ferrous Sulfate [Iron (65 MG 65 mg PO DAILY 11/18/22 11/18/22 History Elemental)] Omeprazole [PriLOSEC] 40 mg PO DAILY #14 cap 11/22/22 Rx Allergies Allergy/AdvReac Type Severity Reaction Status Date / Time itraconazole Allergy Unknown Verified 12/20/22 11:43 ondansetron [From Zofran] AdvReac severe Verified 12/20/22 11:43 burning @IV site, itching Surgical - Exam Vital Signs Temp Pulse Resp BP Pulse Ox 98 F 70 18 130/90 98 01/08/23 04:46 01/08/23 04:46 01/08/23 04:46 01/08/23 04:46 01/08/23 04:46 - General well developed, no distress - Eyes PERRL - ENT normal pinna - Neck no masses - Respiratory normal expansion - Cardiovascular Rhythm: regular - Abdomen Abdomen: soft, non tender - Musculoskeletal Right shoulder pain with range of motion Results - Labs 01/08/23 04:50 01/08/23 07:27 Abnormal Lab Results - Last 24 Hours (Table) 01/08/23 01/08/23 Range/Units 04:50 04:50 WBC 12.7 H (3.8-10.6) k/uL Neutrophils # (Manual) 8.51 H (1.3-7.7) k/uL Monocytes # (Manual) 2.67 H (0-1.0) k/uL Sodium 129 L (137-145) mmol/L Potassium 5.7 H (3.5-5.1) mmol/L Carbon Dioxide 21 L (22-30) mmol/L BUN 39 H (7-17) mg/dL Creatinine 1.17 H (0.52-1.04) mg/dL Glucose 113 H (74-99) mg/dL Calcium 10.8 H (8.4-10.2) mg/dL AST 48 H (14-36) U/L Alkaline Phosphatase 139 H (38-126) U/L Creatine Kinase 572 H (30-135) U/L Diabetes panel 01/08/23 01/08/23 Range/Units 04:50 07:27 Sodium 129 L (137-145) mmol/L Potassium 5.7 H 4.4 (3.5-5.1) mmol/L Chloride 100 (98-107) mmol/L Carbon Dioxide 21 L (22-30) mmol/L BUN 39 H (7-17) mg/dL Creatinine 1.17 H (0.52-1.04) mg/dL Glucose 113 H (74-99) mg/dL Calcium 10.8 H (8.4-10.2) mg/dL AST 48 H (14-36) U/L ALT 34 (4-34) U/L Alkaline Phosphatase 139 H (38-126) U/L Total Protein 6.8 (6.3-8.2) g/dL Albumin 4.1 (3.5-5.0) g/dL Calcium panel 01/08/23 Range/Units 04:50 Calcium 10.8 H (8.4-10.2) mg/dL Albumin 4.1 (3.5-5.0) g/dL Pituitary panel 01/08/23 01/08/23 Range/Units 04:50 07:27 Sodium 129 L (137-145) mmol/L Potassium 5.7 H 4.4 (3.5-5.1) mmol/L Chloride 100 (98-107) mmol/L Carbon Dioxide 21 L (22-30) mmol/L BUN 39 H (7-17) mg/dL Creatinine 1.17 H (0.52-1.04) mg/dL Glucose 113 H (74-99) mg/dL Calcium 10.8 H (8.4-10.2) mg/dL Adrenal panel 01/08/23 01/08/23 Range/Units 04:50 07:27 Sodium 129 L (137-145) mmol/L Potassium 5.7 H 4.4 (3.5-5.1) mmol/L Chloride 100 (98-107) mmol/L Carbon Dioxide 21 L (22-30) mmol/L BUN 39 H (7-17) mg/dL Creatinine 1.17 H (0.52-1.04) mg/dL Glucose 113 H (74-99) mg/dL Calcium 10.8 H (8.4-10.2) mg/dL Total Bilirubin 0.8 (0.2-1.3) mg/dL AST 48 H (14-36) U/L ALT 34 (4-34) U/L Alkaline Phosphatase 139 H (38-126) U/L Total Protein 6.8 (6.3-8.2) g/dL Albumin 4.1 (3.5-5.0) g/dL Assessment and Plan Assessment: Ground-level fall Hyponatremia Shoulder pain Patient will be observed today. She will be assessed by the medical and orthopedic services.
[2023-01-08 10:47] LABS: Partial Thromboplastin Time 22.2 sec (22.0-30.0); Prothrombin Time 10.4 sec (9.0-12.0)
[2023-01-08] MEDS ORDERED: Acetaminophen-Codeine 300-30mg TAB PO PRN (10:56)
[2023-01-08] MEDS: ACETAMINOPHEN TAB 325 MG TAB PO PRN ×2 (11:02→20:08)
--- NOTE | 2023-01-08 11:13 | P.CNOR ---
History of Present Illness - HPI Consult date: 01/08/23 Consult reason: joint pain (Right shoulder pain) History of present illness: This is a 72-year-old female who fell in her kitchen last evening then attempted to get herself up bicycling which into the stairs. She states that she was able to get to the stairs and put her feet down but was still unable to stand up using the railing. She states that she then tried to scoot down the stairs on her bottom to get to a better railing. She was able to stand that then fell down the remaining few stairs. She admits to hitting her head. She was brought to the emergency department and evaluated. She is admitted to trauma service and we are consulted for orthopedic evaluation. At this time she states that she does not have any head or neck pain. Her primary source of pain is the right shoulder. She reports no loss of consciousness or current dizziness. She does state that she has had some dizziness recently prior to her fall. Past Medical History Past Medical History: Hypertension, Pulmonary Embolus (PE) Additional Past Medical History / Comment(s): DDD. PE September 2019. hx gout. leiden factor V, rich foot edema,, new rich leg edema( pt to call [facility]), constipation, diverticulosis, eczema, severe urinary incontinece- uses brief, pt states dx with COVID 09/18/21 History of Any Multi-Drug Resistant Organisms: None Reported Past Surgical History: Bariatric Surgery, Cholecystectomy, Hysterectomy, Tonsillectomy Additional Past Surgical History / Comment(s): cataract sx. Gastric stapling in 1979. Cataract surgery 2015. Colonoscopy June 2020. DEDRA/BSO with umbilical hernia repair in September 2020, cataract surgery Past Anesthesia/Blood Transfusion Reactions: No Reported Reaction Past Psychological History: Anxiety, Depression Smoking Status: Never smoker Past Alcohol Use History: None Reported Past Drug Use History: None Reported - Past Family History Mother Family Medical History: Myocardial Infarction ([place]) Father Family Medical History: Myocardial Infarction ([place]) Brother(s) Family Medical History: Deep Vein Thrombosis (DVT), Myocardial Infarction ([place]), Pulmonary Embolus Medications and Allergies Home Medications Medication Instructions Recorded Confirmed Type Apixaban [Eliquis] 5 mg PO BID 07/29/20 01/08/23 History allopurinoL [Zyloprim] 100 mg PO DAILY 07/29/20 01/08/23 History clonazePAM [KlonoPIN] 0.5 mg PO DAILY PRN 07/29/20 01/08/23 History Furosemide [Lasix] 20 mg PO DAILY 08/26/21 01/08/23 History Pregabalin [Lyrica] 75 mg PO BID 08/26/21 01/08/23 History Diazepam 10mg/Baclofen 1 supp VAGINAL HS PRN 09/18/21 01/08/23 History 10mg/Gabapentin 300mg Vaginal Suppository Sennosides [Senna] 8.6 mg PO BID 09/18/21 01/08/23 History buPROPion HCL [buPROPion HCL SR] 200 mg PO BID 09/18/21 01/08/23 History lisinopriL [Prinivil] 20 mg PO DAILY 09/18/21 01/08/23 History Magnesium 400 mg PO DAILY 12/02/21 01/08/23 History Pravastatin Sodium [Pravachol] 20 mg PO DAILY 12/02/21 01/08/23 History Clotrimazole/Betameth Cream 1 applic TOPICAL BID 03/30/22 01/08/23 History [Lotrisone] Potassium Chloride [Klor-Con 20] 20 meq PO DAILY 03/30/22 01/08/23 History Venlafaxine HCl ER [Effexor XR] 75 mg PO DAILY 09/20/22 01/08/23 History polyethylene glycoL 3350 [Miralax] 17 gm PO BID PRN 09/20/22 01/08/23 History Cyanocobalamin (Vitamin B-12) 1,000 mcg PO DAILY 11/18/22 01/08/23 History [Vitamin B-12] Ferrous Sulfate [Iron (65 MG 325 mg PO DAILY 11/18/22 01/08/23 History Elemental)] Cholecalciferol [Vitamin D3 (125 125 mcg PO DAILY 01/08/23 01/08/23 History Mcg = 5000 Iu)] Fluconazole [Diflucan] 200 mg PO DAILY 01/08/23 01/08/23 History Lutein 6mg Tab 2 tab PO DAILY 01/08/23 01/08/23 History Allergies Allergy/AdvReac Type Severity Reaction Status Date / Time itraconazole Allergy Unknown Verified 01/08/23 10:59 ondansetron [From Zofran] AdvReac severe Verified 01/08/23 10:59 burning @IV site, itching Physical Examination This is a pleasant 72-year-old female in no acute distress. She is alert and oriented 3. Exam of the head neck reveal no obvious deformity. There is some bruising noted about the upper right forehead. She has full cervical spine motion without difficulty or pain. There is no pain to palpation about cervical spine or paraspinal musculature. Exam of the upper extremities reveals mild ecchymosis about the right upper arm. There is mild swelling to the right shoulder. There is tenderness to palpation about the mid to distal clavicle. There is no sternal tenderness. She is nontender over the proximal humerus. Shoulder motion is limited secondary to pain. She has full elbow motion she has full forearm and wrist motion including full forearm rotation. There is no swelling noted to the elbow or wrist. Full finger motion without difficulty or pain. Exam of the left upper extremity is unremarkable. She has fairly good motion to the shoulder, elbow, wrist and fingers without difficulty or pain. Exam of the pelvis and lower extremities reveals no obvious deformity. She can lift each leg off the bed independently. No hip irritability noted with internal and external rotation. She has full foot and ankle motion bilaterally without difficulty or pain. Neurovascular status to the lower extremities is intact. Results X-rays of the right shoulder have been ordered and are pending. X-rays and CT of the pelvis reveal no acute bony abnormality or fracture. CT of the head neck reveal no acute abnormality. Chronic degenerative findings as cervical spine with no fractures noted. No acute intracranial bleed noted. - Labs Labs: Abnormal Lab Results - Last 24 Hours (Table) 01/08/23 01/08/23 Range/Units 04:50 04:50 WBC 12.7 H (3.8-10.6) k/uL Neutrophils # (Manual) 8.51 H (1.3-7.7) k/uL Monocytes # (Manual) 2.67 H (0-1.0) k/uL Sodium 129 L (137-145) mmol/L Potassium 5.7 H (3.5-5.1) mmol/L Carbon Dioxide 21 L (22-30) mmol/L BUN 39 H (7-17) mg/dL Creatinine 1.17 H (0.52-1.04) mg/dL Glucose 113 H (74-99) mg/dL Calcium 10.8 H (8.4-10.2) mg/dL AST 48 H (14-36) U/L Alkaline Phosphatase 139 H (38-126) U/L Creatine Kinase 572 H (30-135) U/L H & H 01/08/23 Range/Units 04:50 Hgb 13.8 (11.4-16.0) gm/dL Hct 39.4 (34.0-46.0) % Coagulation 01/08/23 Range/Units 04:50 INR 1.0 (<1.2) Result Diagrams: 01/08/23 04:50 01/08/23 07:27 Assessment and Plan (1) Concussion without loss of consciousness Current Visit: No Status: Acute Code(s): S06.0X0A - CONCUSSION WITHOUT LOSS OF CONSCIOUSNESS, INITIAL ENCOUNTER SNOMED Code(s): 23555983 (2) Fall down stairs Current Visit: No Status: Acute Code(s): W10.8XXA - FALL (ON) (FROM) OTHER STAIRS AND STEPS, INITIAL ENCOUNTER SNOMED Code(s): 636765135 (3) Right shoulder pain Current Visit: No Status: Acute Code(s): M25.511 - PAIN IN RIGHT SHOULDER SNOMED Code(s): 61985533 Plan: The clinical findings are discussed with the patient. X-rays of the shoulder have not yet been taken. We will await the results of the shoulder x-rays. A sling has been ordered for the patient for comfort to the right upper extremity. Once x-rays are available we will make further recommendations.
--- NOTE | 2023-01-08 11:36 | XR ---
EXAMINATION TYPE: XR shoulder complete 3 views RT DATE OF EXAM: 01/08/2023 Comparison: 12/20/2022 Clinical History: 72-year-old female with pain after fall Findings: There is prominent soft tissue swelling overlying the superior aspect of the right shoulder and AC meg int. The underlying AC joint appears to remain intact. No abnormal offset. There is mild sclerosis of the greater tuberosity. Mild degenerative changes glenohumeral joint. Visualized right hemithorax ap pears clear. Impression: 1. Prominent soft tissue swelling/bruising along the superior aspect of the right shoulder. The under lying AC joint appears to remain congruent and intact. 2. Underlying mild glenohumeral joint OA. No acute osseous abnormality seen.
[2023-01-08 12:12] LABS: Appearance,Urine Clear (Clear); Bacteria,Urine Rare /hpf; Bilirubin,Urine Negative (Negative); Blood,Urine Negative (Negative); Color,Urine Colorless; Glucose,Urine (UA) Negative (Negative); Ketones,Urine Negative (Negative); Leukocyte Esterase,Urine Large (Negative); Nitrite,Urine Negative (Negative); Protein,Urine Negative (Negative); RBC,Urine <1 /hpf (0-5); Specific Gravity,Urine 1.013 (1.001-1.035); Squamous Epithelial Cell,Urine <1 /hpf (0-4); Urobilinogen,Urine <2.0 mg/dL (<2.0); WBC,Urine 3 /hpf (0-5)
[2023-01-08 12:27] LABS: Amphetamine Screen,Urine Not Detected (NotDetected); Benzodiazepines Screen,Urine Not Detected (NotDetected); Cocaine Screen,Urine Not Detected (NotDetected); Opiate Screen,Urine Not Detected (NotDetected); Phencyclidine Screen,Urine Not Detected (NotDetected); Urn Cannabinoid Scrn Not Detected (NotDetected)
[2023-01-08 12:28] LABS: Barbiturate Screen,Urine Not Detected (NotDetected); Methadone Screen, Urine Not Detected (NotDetected); Oxycodone Screen, Urine Not Detected (NotDetected); Tricyclic Antidepressant,Urine Not Detected (NotDetected)
[2023-01-08] MEDS ORDERED: polyethylene glycoL 3350 17 GM POWD.PACK PO PRN (12:50)
[2023-01-08] MEDS: PREGABALIN 75 MG CAP PO SCH (21:24)
[2023-01-08] MEDS: APIXABAN 5 MG TAB PO SCH (21:24)
[2023-01-08] MEDS: SENNOSIDES 8.6 MG TAB PO SCH (21:24)
[2023-01-08] MEDS: buPROPion SR 100 MG TABLET.ER PO SCH (21:31)
[2023-01-08] MEDS: clonazePAM 0.5 MG TAB PO PRN (21:33)
[2023-01-08] MEDS: allopurinoL 100 MG TAB PO SCH (23:05)
[2023-01-09] MEDS: MAGNESIUM OXIDE 400 MG TAB PO SCH (07:27)
[2023-01-09] MEDS: allopurinoL 100 MG TAB PO SCH (07:27)
[2023-01-09] MEDS: PREGABALIN 75 MG CAP PO SCH ×2 (07:28→22:17)
[2023-01-09] MEDS: CHOLECALCIFEROL 125 MCG (5000 IU) TABLET PO SCH (07:28)
[2023-01-09] MEDS: CYANOCOBALAMIN 500 MCG TAB PO SCH (07:28)
[2023-01-09] MEDS: SENNOSIDES 8.6 MG TAB PO SCH ×2 (07:28→22:17)
[2023-01-09] MEDS: VENLAFAXINE HCL ER 75 MG CAP PO SCH (07:28)
[2023-01-09] MEDS: PRAVASTATIN SODIUM 20 MG TAB PO SCH (07:28)
[2023-01-09] MEDS: FERROUS SULFATE 325 MG TAB PO SCH (07:28)
[2023-01-09] MEDS: APIXABAN 5 MG TAB PO SCH ×2 (07:28→22:17)
[2023-01-09] MEDS: buPROPion SR 100 MG TABLET.ER PO SCH ×2 (07:36→22:17)
[2023-01-09] MEDS ORDERED: allopurinoL 100 MG TAB PO SCH (09:00)
--- NOTE | 2023-01-09 09:41 | P.PN ---
Subjective Progress Note Date: 01/09/23 Principal diagnosis: Right shoulder pain This is a 72-year-old female who fell in her kitchen last evening then attempted to get herself up bicycling which into the stairs. She states that she was able to get to the stairs and put her feet down but was still unable to stand up using the railing. She states that she then tried to scoot down the stairs on her bottom to get to a better railing. She was able to stand that then fell down the remaining few stairs. She admits to hitting her head. She was brought to the emergency department and evaluated. She is admitted to trauma service and we are consulted for orthopedic evaluation. At this time she states that she does not have any head or neck pain. Her primary source of pain is the right shoulder. She reports no loss of consciousness or current dizziness. She does state that she has had some dizziness recently prior to her fall. 01/09/2023: She states the shoulder pain is the same. No change in her pain at this time. The arm is sling is at the bedside. No new complaints this morning. Objective - Vital Signs Vital signs: Vital Signs Temp 98.5 F 01/09/23 01:40 Pulse 83 01/09/23 01:40 Resp 16 01/09/23 01:40 BP 129/77 01/09/23 01:40 Pulse Ox 100 01/09/23 08:19 FiO2 Intake & Output 01/08/23 01/09/23 01/09/23 18:59 06:59 18:59 Intake Total 120 Output Total 2800 2350 Balance -2800 -2230 Weight 104.326 kg Intake: Oral 120 Output: Urine 2800 2350 Other: Voiding Method External Catheter External Catheter # Bowel Movements 1 1 - Exam This is a pleasant 72-year-old female in no acute distress. She is alert and or iented 3. Exam of the head neck reveal no obvious deformity. There is some bruising noted about the upper right forehead. She has full cervical spine motion without difficulty or pain. There is no pain to palpation about cervical spine or paraspinal musculature. Exam of the upper extremities reveals mild ecchymosis about the right upper arm. There is mild swelling to the right shoulder. There is tenderness to palpation about the mid to distal clavicle. There is no sternal tenderness. She is nontender over the proximal humerus. Shoulder motion is limited secondary to pain. She has full elbow motion she has full forearm and wrist motion including full forearm rotation. There is no swelling noted to the elbow or wrist. Full finger motion without difficulty or pain. Exam of the left upper extremity is unremarkable. She has fairly good motion to the elbow, wrist and fingers without difficulty or pain. Neurological and circulatory status is intact. - Labs CBC & Chem 7: 01/08/23 04:50 01/08/23 07:27 Labs: Abnormal Lab Results - Last 24 Hours (Table) 01/08/23 Range/Units 11:30 Ur Leukocyte Esterase Large H (Negative) Urine Bacteria Rare H (None) /hpf Assessment and Plan (1) Fall Current Visit: Yes Status: Acute Code(s): W19.XXXA - UNSPECIFIED FALL, INITIAL ENCOUNTER SNOMED Code(s): 9838502 (2) Right shoulder pain Current Visit: No Status: Acute Code(s): M25.511 - PAIN IN RIGHT SHOULDER SNOMED Code(s): 24837647 Plan: The clinical and x-ray findings were discussed with the patient. Her x-rays revealed no fracture or dislocation. Continue with arm sling when out of bed. Continue ROM of the elbow and wrist/hand as tolerated. No ROM of shoulder at this time. She will follow up with Dr. Jason as an outpatient for further care and treatment. We will sign off at this time.
[2023-01-09] MEDS: SODIUM CHLORIDE 0.9% 1,000 ML IV SCH ×2 (10:13→22:15)
--- NOTE | 2023-01-09 11:27 | P.PN ---
Progress Note - Text Progress Note Date: 01/09/23 The patient was sleeping in her bed. Her main complaint is right shoulder pain. She denies any abdominal pain. On exam vital signs are stable. Abdomen soft Patient will be medically managed. She is still hyponatremic. She has been transferred to the medical service.
--- NOTE | 2023-01-09 12:32 | P.CONS ---
History of Present Illness - Reason for Consult Consult date: 01/08/23 Medical management - Chief Complaint Fall - History of Present Illness 72-year-old female who is brought in by EMS after fall. Patient allegedly fell twice. She fell in the kitchen once and states that she tried to get up and fell down 3 or 4 steps. The steps were allegedly concrete. Patient takes and I coagulation medications. She has multiple comorbidities. EMS states that patient over the last 2-3 days has been a little confused. Patient complaining of right shoulder pain. She was unable to get up. She allegedly was on the ground for 4 hours. Patient states she fell because she has bad knees. She follows up with orthopedic on outpatient basis. Laboratory evaluation obtained. CBC is unremarkable. Metabolic panel shows sodium 129, potassium of 5.7. Mildly elevated renal markers above her baseline suggesting dehydration. Review of Systems REVIEW OF SYSTEMS: CONSTITUTIONAL: No fever, no malaise, no fatigue. HEENT: No recent visual problems or hearing problems. Denied any sore throat. CARDIOVASCULAR: No chest pain, orthopnea, PND, no palpitations, no syncope. PULMONARY: No shortness of breath, no cough, no hemoptysis. GASTROINTESTINAL: No diarrhea, no nausea, no vomiting, no abdominal pain. NEUROLOGICAL: No headaches, no weakness, no numbness. HEMATOLOGICAL: Denies any bleeding or petechiae. GENITOURINARY: Denies any burning micturition, frequency, or urgency. MUSCULOSKELETAL/RHEUMATOLOGICAL: Denies any joint pain, swelling, or any muscle pain. ENDOCRINE: Denies any polyuria or polydipsia. The rest of the 14-point review of systems is negative. Past Medical History Past Medical History: Hypertension, Pulmonary Embolus (PE) Additional Past Medical History / Comment(s): DDD. PE September 2019. hx gout. leiden factor V, rich foot edema,, new rich leg edema( pt to call [facility]), constipation, diverticulosis, eczema, severe urinary incontinece- uses brief, pt states dx with COVID 09/18/21 History of Any Multi-Drug Resistant Organisms: None Reported Past Surgical History: Bariatric Surgery, Cholecystectomy, Hysterectomy, Tonsillectomy Additional Past Surgical History / Comment(s): cataract sx. Gastric stapling in 1979. Cataract surgery 2015. Colonoscopy June 2020. DEDRA/BSO with umbilical hernia repair in September 2020, cataract surgery Past Anesthesia/Blood Transfusion Reactions: No Reported Reaction Past Psychological History: Anxiety, Depression Smoking Status: Never smoker Past Alcohol Use History: None Reported Past Drug Use History: None Reported - Past Family History Mother Family Medical History: Myocardial Infarction ([place]) Father Family Medical History: Myocardial Infarction ([place]) Brother(s) Family Medical History: Deep Vein Thrombosis (DVT), Myocardial Infarction ([place]), Pulmonary Embolus Medications and Allergies Home Medications Medication Instructions Recorded Confirmed Type Apixaban [Eliquis] 5 mg PO BID 07/29/20 01/08/23 History allopurinoL [Zyloprim] 100 mg PO DAILY 07/29/20 01/08/23 History clonazePAM [KlonoPIN] 0.5 mg PO DAILY PRN 07/29/20 01/08/23 History Furosemide [Lasix] 20 mg PO DAILY 08/26/21 01/08/23 History Pregabalin [Lyrica] 75 mg PO BID 08/26/21 01/08/23 History Diazepam 10mg/Baclofen 1 supp VAGINAL HS PRN 09/18/21 01/08/23 History 10mg/Gabapentin 300mg Vaginal Suppository Sennosides [Senna] 8.6 mg PO BID 09/18/21 01/08/23 History buPROPion HCL [buPROPion HCL SR] 200 mg PO BID 09/18/21 01/08/23 History lisinopriL [Prinivil] 20 mg PO DAILY 09/18/21 01/08/23 History Magnesium 400 mg PO DAILY 12/02/21 01/08/23 History Pravastatin Sodium [Pravachol] 20 mg PO DAILY 12/02/21 01/08/23 History Clotrimazole/Betameth Cream 1 applic TOPICAL BID 03/30/22 01/08/23 History [Lotrisone] Potassium Chloride [Klor-Con 20] 20 meq PO DAILY 03/30/22 01/08/23 History Venlafaxine HCl ER [Effexor XR] 75 mg PO DAILY 09/20/22 01/08/23 History polyethylene glycoL 3350 [Miralax] 17 gm PO BID PRN 09/20/22 01/08/23 History Cyanocobalamin (Vitamin B-12) 1,000 mcg PO DAILY 11/18/22 01/08/23 History [Vitamin B-12] Ferrous Sulfate [Iron (65 MG 325 mg PO DAILY 11/18/22 01/08/23 History Elemental)] Cholecalciferol [Vitamin D3 (125 125 mcg PO DAILY 01/08/23 01/08/23 History Mcg = 5000 Iu)] Fluconazole [Diflucan] 200 mg PO DAILY 01/08/23 01/08/23 History Lutein 6mg Tab 2 tab PO DAILY 01/08/23 01/08/23 History Allergies Allergy/AdvReac Type Severity Reaction Status Date / Time itraconazole Allergy Unknown Verified 01/08/23 10:59 ondansetron [From Zofran] AdvReac severe Verified 01/08/23 10:59 burning @IV site, itching Physical Exam Vitals: Vital Signs Temp Pulse Resp BP Pulse Ox 01/08/23 08:03 98.2 F 74 18 142/60 97 01/08/23 07:15 70 18 147/62 96 01/08/23 04:46 98 F 70 18 130/90 98 Intake and Output 01/07/23 01/08/23 01/08/23 22:59 06:59 14:59 Other: Weight 104.326 kg PHYSICAL EXAMINATION: GENERAL: The patient is alert and oriented x3, not in any acute distress. Well developed, well nourished. HEENT: Pupils are round and equally reacting to light. EOMI. No scleral icterus. No conjunctival pallor. Normocephalic, atraumatic. No pharyngeal erythema. No thyromegaly. CARDIOVASCULAR: S1 and S2 present. No murmurs, rubs, or gallops. PULMONARY: Chest is clear to auscultation, no wheezing or crackles. ABDOMEN: Soft, nontender, nondistended, normoactive bowel sounds. No palpable organomegaly. MUSCULOSKELETAL: No joint swelling or deformity. EXTREMITIES: No cyanosis, clubbing, or pedal edema. NEUROLOGICAL: Gross neurological examination did not reveal any focal deficits. SKIN: No rashes. Results CBC & Chem 7: 01/08/23 04:50 01/08/23 07:27 Labs: Abnormal Lab Results - Last 24 Hours (Table) 01/08/23 01/08/23 Range/Units 04:50 04:50 WBC 12.7 H (3.8-10.6) k/uL Neutrophils # (Manual) 8.51 H (1.3-7.7) k/uL Monocytes # (Manual) 2.67 H (0-1.0) k/uL Sodium 129 L (137-145) mmol/L Potassium 5.7 H (3.5-5.1) mmol/L Carbon Dioxide 21 L (22-30) mmol/L BUN 39 H (7-17) mg/dL Creatinine 1.17 H (0.52-1.04) mg/dL Glucose 113 H (74-99) mg/dL Calcium 10.8 H (8.4-10.2) mg/dL AST 48 H (14-36) U/L Alkaline Phosphatase 139 H (38-126) U/L Creatine Kinase 572 H (30-135) U/L Assessment and Plan Assessment: 1. Ground-level Fall/weakness/debility - Patient has been evaluated by orthopedic surgery and no intervention is required. - Patient to be monitored closely - PT/OT consulted 2. Hyponatremia; patient has been placed on IV fluids in form of normal saline at a rate of 75 mL an hour; we will monitor lactic lites closely and make further recommendations accordingly 3. Hyperkalemia; iatrogenic; patient takes potassium supplement at home; likely hyperkalemia given patient taking supplements and with renal injury; potassium supplement has placed on hold; we will monitor electrolytes and renal function closely 4. Acute renal injury/dehydration; continue with IV fluid hydration with normal saline at rate of 100 mL an hour; monitor strict PAM's and daily weight; renal function and electrolytes will be monitored; avoid nephrotoxins and hypotension 5. Hypertension; lisinopril 20 mg daily which will be placed on hold till renal function and potassium levels improve 6. Hyperlipidemia; pravastatin 20 mg daily 7. Anxiety/depression; patient takes Klonopin 0.5 mg daily at bedtime when nec essary along with Effexor XR 75 mg daily 8. History of PE; patient remains on systemic anticoagulation with Eliquis DVT prophylaxis; SCDs/ Eliquis CODE STATUS; full code
[2023-01-09 13:19] LABS: African American GFR (CKD) >90 (>60 ml/min/1.73 sqM); Anion Gap 1 mmol/L; Blood Urea Nitrogen 18 mg/dL (7-17); Calcium 9.8 mg/dL (8.4-10.2); Carbon Dioxide 26 mmol/L (22-30); Chloride 106 mmol/L (98-107); Glucose 105 mg/dL (74-99); Non-African American GFR(CKD) 79 (>60 ml/min/1.73 sqM); Potassium 4.2 mmol/L (3.5-5.1); Sodium 133 mmol/L (137-145)
[2023-01-09] MEDS: ACETAMINOPHEN TAB 325 MG TAB PO PRN (22:17)
[2023-01-10] MEDS: VENLAFAXINE HCL ER 75 MG CAP PO SCH (09:42)
[2023-01-10] MEDS: CHOLECALCIFEROL 125 MCG (5000 IU) TABLET PO SCH (09:42)
[2023-01-10] MEDS: SENNOSIDES 8.6 MG TAB PO SCH ×2 (09:42→20:43)
[2023-01-10] MEDS: APIXABAN 5 MG TAB PO SCH ×2 (09:42→20:43)
[2023-01-10] MEDS: PREGABALIN 75 MG CAP PO SCH ×2 (09:42→20:43)
[2023-01-10] MEDS: PRAVASTATIN SODIUM 20 MG TAB PO SCH (09:43)
[2023-01-10] MEDS: CYANOCOBALAMIN 500 MCG TAB PO SCH (09:43)
[2023-01-10] MEDS: MAGNESIUM OXIDE 400 MG TAB PO SCH (09:43)
[2023-01-10] MEDS: buPROPion SR 100 MG TABLET.ER PO SCH ×2 (09:43→20:43)
[2023-01-10] MEDS: allopurinoL 100 MG TAB PO SCH (09:43)
[2023-01-10] MEDS: FERROUS SULFATE 325 MG TAB PO SCH (09:43)
[2023-01-10] MEDS: ACETAMINOPHEN TAB 325 MG TAB PO PRN (09:44)
[2023-01-10 12:32] VITALS: BMI 36.0
--- NOTE | 2023-01-10 14:11 | P.PN ---
Subjective Progress Note Date: 01/10/23 CHIEF COMPLAINT: Fall HISTORY OF PRESENT ILLNESS: Patient plans of right shoulder pain. Denies any abdominal pain. Reports having a bowel movement. Denies any nausea or vomiting. Last sodium was 133 creatinine 0.75. Patient clear by orthopedic service for discharge. No evidence of fracture on shoulder x-ray. PHYSICAL EXAM: VITAL SIGNS: Reviewed. GENERAL: Well-developed in no acute distress. HEENT: No sclera icterus. Extraocular movements grossly intact. Moist buccal mucosa. Head is atraumatic, normocephalic. ABDOMEN: Soft. Nondistended. Nontender. NEUROLOGIC: Alert and oriented. Cranial nerves II through XII grossly intact. ASSESSMENT: 1. Ground-level Fall 2. Right shoulder pain 3. Hyponatremia PLAN: -Continue supportive care -Continue work with PT OT -Continue pain management Physician Electric [employer]r note has been reviewed by physician. Signing provider agrees with the documented findings, assessment, and plan of care. Objective - Vital Signs Vital signs: Vital Signs Temp 98.4 F 01/10/23 07:31 Pulse 71 01/10/23 07:31 Resp 18 01/10/23 07:31 BP 144/80 01/10/23 07:31 Pulse Ox 98 01/10/23 07:31 FiO2 Intake & Output 01/09/23 01/10/23 01/10/23 18:59 06:59 18:59 Intake Total 1840 118 Output Total 1350 1350 Balance -1350 490 118 Weight 104.326 kg Intake: Intake, IV Titration 1000 Amount Sodium Chloride 0.9% 1, 1000 000 ml @ 100 mls/hr IV . Q10H YVETTE Rx#:[id number] Oral 840 118 Output: Urine 1350 1350 Other: Voiding Method External Catheter External Catheter # Bowel Movements 1 - Labs CBC & Chem 7: 01/08/23 04:50 01/09/23 12:49
[2023-01-10 14:50] LABS: African American GFR (CKD) 98.9 (60.0-200.0); Anion Gap 12.2 mmol/L (10.00-18.00); BUN/Creat Ratio 18.43 Ratio (12.00-20.00); Blood Urea Nitrogen 12.9 mg/dL (9.0-27.0); Calcium 9.7 mg/dL (8.7-10.3); Carbon Dioxide 20.8 mmol/L (20.0-27.5); Non-African American GFR(CKD) 85.4 (60.0-200.0); Potassium 4.4 mmol/L (3.5-5.5)
[2023-01-10] MEDS: clonazePAM 0.5 MG TAB PO PRN (20:43)
--- NOTE | 2023-01-11 04:07 | P.PN ---
Subjective Progress Note Date: 01/10/23 72-year-old female who is brought in by EMS after fall. Patient allegedly fell twice. She fell in the kitchen once and states that she tried to get up and fell down 3 or 4 steps. The steps were allegedly concrete. Patient takes and I coagulation medications. She has multiple comorbidities. EMS states that patient over the last 2-3 days has been a little confused. Patient complaining of right shoulder pain. She was unable to get up. She allegedly was on the ground for 4 hours. Patient states she fell because she has bad knees. She follows up with orthopedic on outpatient basis. Laboratory evaluation obtained. CBC is unremarkable. Metabolic panel shows sodium 129, potassium of 5.7. Mildly elevated renal markers above her baseline suggesting dehydration. 01/10/2023 Patient is seen and evaluated in follow-up being followed by general surgery and orthopedics with no plans for surgical interventions at this time and patient continues with significant weakness. Patient apparently had been more weak at home and having more frequent falls and also found to be hyponatremic and likely dehydrated. Kidney functions have improved along with sodium and patient is being closely monitored. Patient with significant weakness would recommend physical therapy evaluation with case management following plating in ECF. Patient is currently afebrile with no reports of chest pain or shortness of breath noted. No reports of nausea or vomiting and patient is tolerating diet. Review of systems: Constitutional: No reports of fatigue, fever, or chills Cardiovascular: No reports of chest pain or palpitations Respiratory: No reports of shortness of breath or cough GI: No reports of nausea, vomiting, or diarrhea : No reports of dysuria or retention Neurovascular: reports of generalized weakness difficulty with ambulation All medications have been reviewed Active Medications Acetaminophen (Acetaminophen Tab 325 Mg Tab) 650 mg PO Q6HR PRN PRN Reason: Fever and/ or Pain Last Admin: 01/10/23 09:44 Dose: 650 mg Acetaminophen/Codeine Phosphate (Acetaminophen-Codeine 300-30mg Tab) 1 each PO Q6HR PRN PRN Reason: Pain Allopurinol (Allopurinol 100 Mg Tab) 100 mg PO DAILY [facility] Last Admin: 01/10/23 09:43 Dose: 100 mg Apixaban (Apixaban 5 Mg Tab) 5 mg PO BID [facility]; Protocol Last Admin: 01/10/23 20:43 Dose: 5 mg Bupropion HCl (Bupropion Sr 100 Mg Tablet.Er) 200 mg PO BID [facility] Last Admin: 01/10/23 20:43 Dose: 200 mg Cholecalciferol (Cholecalciferol 125 Mcg (5000 Iu) Tablet) 125 mcg PO DAILY [facility] Last Admin: 01/10/23 09:42 Dose: 125 mcg Clonazepam (Clonazepam 0.5 Mg Tab) 0.5 mg PO DAILY PRN PRN Reason: Anxiety Last Admin: 01/10/23 20:43 Dose: 0.5 mg Cyanocobalamin (Cyanocobalamin 500 Mcg Tab) 1,000 mcg PO DAILY [facility] Last Admin: 01/10/23 09:43 Dose: 1,000 mcg Ferrous Sulfate (Ferrous Sulfate 325 Mg Tab) 325 mg PO DAILY [facility] Last Admin: 01/10/23 09:43 Dose: 325 mg Magnesium Oxide (Magnesium Oxide 400 Mg Tab) 400 mg PO DAILY [facility] Last Admin: 01/10/23 09:43 Dose: 400 mg Naloxone HCl (Naloxone 0.4 Mg/Ml 1 Ml Vial) 0.2 mg IV Q2M PRN PRN Reason: Opioid Reversal Polyethylene Glycol (Polyethylene Glycol 3350 17 Gm Powd.Pack) 17 gm PO BID PRN PRN Reason: Constipation Pravastatin Sodium (Pravastatin Sodium 20 Mg Tab) 20 mg PO DAILY [facility] Last Admin: 01/10/23 09:43 Dose: 20 mg Pregabalin (Pregabalin 75 Mg Cap) 75 mg PO BID [facility] Last Admin: 01/10/23 20:43 Dose: 75 mg Senna (Sennosides 8.6 Mg Tab) 8.6 mg PO BID [facility] Last Admin: 01/10/23 20:43 Dose: 8.6 mg Venlafaxine HCl (Venlafaxine Hcl Er 75 Mg Cap) 75 mg PO DAILY [facility] Last Admin: 01/10/23 09:42 Dose: 75 mg Physical exam: GENERAL: The patient is alert and oriented x3. Well developed, well nourished. Obese HEENT: Pupils are round and equally reacting to light. EOMI. No scleral icterus. No conjunctival pallor. Normocephalic, atraumatic. No pharyngeal erythema. No thyromegaly. CARDIOVASCULAR: S1 and S2 muffled PULMONARY: Diminished breath sounds bilaterally with no wheezing or crackles. ABDOMEN: Soft, obese, nontender, nondistended, normoactive bowel sounds. No palpable organomegaly. MUSCULOSKELETAL: No joint swelling or deformity. EXTREMITIES: No cyanosis, clubbing, or pedal edema. NEUROLOGICAL: Gross neurological examination did not reveal any focal deficits. Diffusely weak SKIN: No rashes. Assessment: -Ground-level Fall/weakness/debility -Hyponatremia, improved after IV hydration -Hyperkalemia; iatrogenic; secondary to daily supplementation, improved -Acute renal injury/dehydration -Hypertension -Hyperlipidemia -Anxiety/depression -History of PE; patient remains on systemic anticoagulation with Eliquis -DVT prophylaxis; SCDs/ Eliquis -full code Plan: Recommend to continue with current medications and management judgment with orthopedics and Gen. surgery following. No plans for surgical intervention and patient may follow-up with orthopedics outpatient PT/OT for evaluation and recommending rehab case management following working on accepting ECF Would recommend PT/OT therapy daily for significant weakness and difficulty with ambulation Labs reviewed and kidney functions improved will continue current regimen Due to multiple complex medical issues, prognosis is guarded Possible discharge in the next 24 hours to ECF The impression and plan of care has been dictated by Nicole Ware, Nurse Practitioner as directed. Dr. Wing MD I have performed a history and examination and MDM of this patient, discussed the same with the dictator, and agree with the dictator's assessment and plan as written ,documented as a scribe. Based on total visit time, I have performed more than 50% of the visit. Objective - Vital Signs Vital signs: Vital Signs Temp 98.4 F 01/10/23 07:31 Pulse 71 01/10/23 07:31 Resp 18 01/10/23 07:31 BP 144/80 01/10/23 07:31 Pulse Ox 98 01/10/23 07:31 FiO2 Intake & Output 01/09/23 01/10/23 01/10/23 18:59 06:59 18:59 Intake Total 1840 118 Output Total 1350 1350 Balance -1350 490 118 Weight 104.326 kg Intake: Intake, IV Titration 1000 Amount Sodium Chloride 0.9% 1, 1000 000 ml @ 100 mls/hr IV . Q10H YVETTE Rx#:[id number] Oral 840 118 Output: Urine 1350 1350 Other: Voiding Method External Catheter External Catheter # Bowel Movements 1 - Labs CBC & Chem 7: 01/08/23 04:50 01/10/23 06:37 Labs: Abnormal Lab Results - Last 24 Hours (Table) 01/09/23 Range/Units 12:49 Sodium 133 L (137-145) mmol/L BUN 18 H (7-17) mg/dL Glucose 105 H (74-99) mg/dL
[2023-01-11 08:00] VITALS: RESP 18
[2023-01-11] MEDS: buPROPion SR 100 MG TABLET.ER PO SCH (09:06)
[2023-01-11] MEDS: MAGNESIUM OXIDE 400 MG TAB PO SCH (09:06)
[2023-01-11] MEDS: allopurinoL 100 MG TAB PO SCH (09:06)
[2023-01-11] MEDS: APIXABAN 5 MG TAB PO SCH (09:07)
[2023-01-11] MEDS: FERROUS SULFATE 325 MG TAB PO SCH (09:07)
[2023-01-11] MEDS: PREGABALIN 75 MG CAP PO SCH (09:07)
[2023-01-11] MEDS: CYANOCOBALAMIN 500 MCG TAB PO SCH (09:07)
[2023-01-11] MEDS: VENLAFAXINE HCL ER 75 MG CAP PO SCH (09:07)
[2023-01-11] MEDS: clonazePAM 0.5 MG TAB PO PRN (09:07)
[2023-01-11] MEDS: PRAVASTATIN SODIUM 20 MG TAB PO SCH (09:07)
[2023-01-11] MEDS: CHOLECALCIFEROL 125 MCG (5000 IU) TABLET PO SCH (09:08)
[2023-01-11] MEDS: SENNOSIDES 8.6 MG TAB PO SCH (09:08)
--- NOTE | 2023-01-11 11:45 | P.DS ---
Providers Date of admission: 01/10/23 01:49 Expected date of discharge: 01/11/23 Attending physician: Aundrea Dimas Consults: 01/08/23 06:26 Consult Physician Routine Consulting Provider: Aundrea Dimas Consult Reason/Comments: medicine consultation Do you want consulting provider notified?: Yes 01/08/23 09:44 Consult Physician Routine Consulting Provider: Tomy Ingram Consult Reason/Comments: Right shoulder pain, ground-level fall Do you want consulting provider notified?: Yes 01/09/23 11:25 Consult Physician Routine Consulting Provider: Juanito An Consult Reason/Comments: Ground-level fall Do you want consulting provider notified?: Already Contacted Primary care physician: Olga Andersen Hospital Course: Final diagnosis -Ground-level Fall/weakness/debility -Hyponatremia, improved after IV hydration -Hyperkalemia; iatrogenic; secondary to daily supplementation, improved -Acute renal injury/dehydration -Hypertension -Hyperlipidemia -Anxiety/depression -History of PE; patient remains on systemic anticoagulation with Eliquis -DVT prophylaxis; SCDs/ Eliquis -full code Discharge disposition Patient is being discharged in a stable condition with guarded prognosis to [facility] . Patient will follow-up with Dr. Andersen in the outpatient setting upon discharge. Patient is to follow-up with Dr. Jason in the outpatient setting as scheduled. Total time taken is greater than 35 minutes. Hospital course This is a 72-year-old female who was recently admitted with weakness and falls progressively becoming more weak and found to have hyponatremia and hyperkalemia. Patient also had acute kidney injury which improved with gentle IV hydration and would recommend outpatient repeat labs of CMP and CK in the next 2-3 days. Patient seen and evaluated by physical therapy recommending rehab and patient is agreeable. Patient has been accepted by [facility] and will be discharged today. Patient to follow-up with orthopedics outpatient for the right arm pain and continue supportive care. Please refer to other consultation notes for further HPI. Currently no reports of chest pain, shortness of breath, or palpitations. Patient is afebrile. No reports of nausea or vomiting and patient is tolerating diet. Patient will be going to [facility] today. Physical exam: Gen: This is a 72-year-old female who is awake, alert and oriented 2-3, well- developed, well-nourished, obese HEENT: Head is atraumatic, normocephalic. Pupils equal, round. Sclerae is anicteric. NECK: Supple. No JVD. No lymphadenopathy. No thyromegaly. LUNGS: Diminished breath sounds bilaterally with no wheezes or rhonchi. No intercostal retractions. HEART: S1, S2 are muffled ABDOMEN: Soft. Bowel sounds are present. No masses. No tenderness. EXTREMITIES: No pedal edema. No calf tenderness. NEUROLOGICAL: Patient is awake, alert and oriented x2-3. Cranial nerves 2 through 12 are grossly intact. Diffusely weak Please refer to medication reconciliation sheet for a list of medications. The impression and plan of care has been dictated by Nicole Ware, Nurse Practitioner as directed. Dr. Wing MD I have performed a history and examination and MDM of this patient, discussed the same with the dictator, and agree with the dictator's assessment and plan as written ,documented as a scribe. Based on total visit time, I have performed more than 50% of the visit. Patient Condition at Discharge: Fair Plan - Discharge Summary Discharge Rx Participant: No New Discharge Prescriptions: New Acetaminophen Tab [Tylenol] 650 mg PO Q6HR PRN tab PRN Reason: Fever And/ Or Pain Continue Apixaban [Eliquis] 5 mg PO BID allopurinoL [Zyloprim] 100 mg PO DAILY Furosemide [Lasix] 20 mg PO DAILY Sennosides [Senna] 8.6 mg PO BID Pravastatin Sodium [Pravachol] 20 mg PO DAILY Potassium Chloride [Klor-Con 20] 20 meq PO DAILY Venlafaxine HCl ER [Effexor XR] 75 mg PO DAILY polyethylene glycoL 3350 [Miralax] 17 gm PO BID PRN PRN Reason: Constipation clonazePAM [KlonoPIN] 0.5 mg PO DAILY PRN #2 tab PRN Reason: Anxiety Pregabalin [Lyrica] 75 mg PO BID #6 cap buPROPion HCL [buPROPion HCL SR] 200 mg PO BID lisinopriL [Prinivil] 20 mg PO DAILY Magnesium 400 mg PO DAILY Clotrimazole/Betameth Cream [Lotrisone] 1 applic TOPICAL BID Ferrous Sulfate [Iron (65 MG Elemental)] 325 mg PO DAILY Cyanocobalamin (Vitamin B-12) [Vitamin B-12] 1,000 mcg PO DAILY Cholecalciferol [Vitamin D3 (125 Mcg = 5000 Iu)] 125 mcg PO DAILY Fluconazole [Diflucan] 200 mg PO DAILY Discontinued Diazepam 10mg/Baclofen 10mg/Gabapentin 300mg Vaginal Suppository 1 supp VAGINAL HS PRN PRN Reason: Pain Lutein 6mg Tab 2 tab PO DAILY Discharge Medication List Apixaban [Eliquis] 5 mg PO BID 07/29/20 [History] allopurinoL [Zyloprim] 100 mg PO DAILY 07/29/20 [History] Furosemide [Lasix] 20 mg PO DAILY 08/26/21 [History] Sennosides [Senna] 8.6 mg PO BID 09/18/21 [History] buPROPion HCL [buPROPion HCL SR] 200 mg PO BID 09/18/21 [History] lisinopriL [Prinivil] 20 mg PO DAILY 09/18/21 [History] Magnesium 400 mg PO DAILY 12/02/21 [History] Pravastatin Sodium [Pravachol] 20 mg PO DAILY 12/02/21 [History] Clotrimazole/Betameth Cream [Lotrisone] 1 applic TOPICAL BID 03/30/22 [History] Potassium Chloride [Klor-Con 20] 20 meq PO DAILY 03/30/22 [History] Venlafaxine HCl ER [Effexor XR] 75 mg PO DAILY 09/20/22 [History] polyethylene glycoL 3350 [Miralax] 17 gm PO BID PRN 09/20/22 [History] Cyanocobalamin (Vitamin B-12) [Vitamin B-12] 1,000 mcg PO DAILY 11/18/22 [History] Ferrous Sulfate [Iron (65 MG Elemental)] 325 mg PO DAILY 11/18/22 [History] Cholecalciferol [Vitamin D3 (125 Mcg = 5000 Iu)] 125 mcg PO DAILY 01/08/23 [History] Fluconazole [Diflucan] 200 mg PO DAILY 01/08/23 [History] Acetaminophen Tab [Tylenol] 650 mg PO Q6HR PRN tab 01/11/23 [Rx] Pregabalin [Lyrica] 75 mg PO BID #6 cap 01/11/23 [Rx] clonazePAM [KlonoPIN] 0.5 mg PO DAILY PRN #2 tab 01/11/23 [Rx] Follow up Appointment(s)/Referral(s): Olga Andersen MD [Primary Care Provider] - 1-2 days Zaid Jason MD [STAFF PHYSICIAN] - 1 Week Ambulatory/Diagnostic Orders: Comprehensive Metabolic Panel [LAB.AMB] Time Frame: 3 Days, Location: None Selected Activity/Diet/Wound Care/Special Instructions: Patient is going to [place] Activity as tolerated Patient to continue with orthopedic recommendations as mentioned below Follow-up primary care provider on discharge Recommend repeat labs including CMP and CK in the next 2-3 days Arm sling to right arm. No active range of motion of the right shoulder at this time. May move elbow, wrist, and hand as tolerated.
[2023-01-11 13:25] VITALS: BP 143/83; PULSE 79; TEMP 98.5
--- NOTE | 2023-01-11 14:07 | P.PN ---
Subjective Progress Note Date: 01/11/23 CHIEF COMPLAINT: Fall HISTORY OF PRESENT ILLNESS: Patient reports she is feeling better. She's tolerating diet. Denies abdominal pain. She reports that she has less pain in that right shoulder. She is scheduled for discharge to [facility] today. Afebrile. Sodium 139 PHYSICAL EXAM: VITAL SIGNS: Reviewed. GENERAL: Well-developed in no acute distress. HEENT: No sclera icterus. Extraocular movements grossly intact. Moist buccal mucosa. Head is atraumatic, normocephalic. ABDOMEN: Soft. Nondistended. Nontender. NEUROLOGIC: Alert and oriented. Cranial nerves II through XII grossly intact. ASSESSMENT: 1. Ground-level Fall 2. Right shoulder pain 3. Hyponatremia resolved PLAN: -Patient can be discharged from trauma service -Agree with discharge ECF Physician Cost Controller note has been reviewed by physician. Signing provider agrees with the documented findings, assessment, and plan of care. Objective - Vital Signs Vital signs: Vital Signs Temp 98.5 F 01/11/23 13:14 Pulse 79 01/11/23 13:14 Resp 18 01/11/23 13:14 BP 143/83 01/11/23 13:14 Pulse Ox 97 01/11/23 13:14 FiO2 Intake & Output 01/10/23 01/11/23 01/11/23 18:59 06:59 18:59 Intake Total 354 Output Total 900 Balance 354 -900 Weight 104.326 kg Intake: Oral 354 Output: Urine 900 Other: Voiding Method External Catheter External Catheter # Voids 2 1 # Bowel Movements 1 1 - Labs CBC & Chem 7: 01/08/23 04:50 01/10/23 06:37
== END 2023-01-11 14:05 | DRG 89 ==
LOC: EC 04:39 → 6NMEDSUR 06:48 → 4SSUR 07:31 → OBSVTOIN 01-10 01:49
PROVIDERS: ADMIT Hospitalist; ATTEND Hospitalist
DX: S06.0X0A Concussion without loss of consciousness, initial encounter (principal); E87.1 Hypo-osmolality and hyponatremia; N17.9 Acute kidney failure, unspecified; L30.9 Dermatitis, unspecified; K57.90 Diverticulosis of intestine, part unspecified, without perforation or abscess without bleeding; M25.511 Pain in right shoulder; E78.5 Hyperlipidemia, unspecified; E87.5 Hyperkalemia; F41.9 Anxiety disorder, unspecified; F32.A Depression, unspecified; E86.0 Dehydration; Z86.711 Personal history of pulmonary embolism; I10 Essential (primary) hypertension; M19.90 Unspecified osteoarthritis, unspecified site; R29.6 Repeated falls; W10.9XXA Fall (on) (from) unspecified stairs and steps, initial encounter; Y92.000 Kitchen of unspecified non-institutional (private) residence as the place of occurrence of the external cause; Z79.01 Long term (current) use of anticoagulants; Z79.899 Other long term (current) drug therapy; Z90.710 Acquired absence of both cervix and uterus; Z90.49 Acquired absence of other specified parts of digestive tract; Z87.19 Personal history of other diseases of the digestive system; Z98.42 Cataract extraction status, left eye; Z98.41 Cataract extraction status, right eye
CPT/HCPCS: 36415; 70450; 71045; 71260; 72125; 72170; 74177; 80048; 80053; 80306; 80320; 81001; 82550; 84132; 84484; 85025; 85610; 85730; 86850; 86900; 86901; 87635; 93005; 94760; 96360; 99285

== ENCOUNTER 2023-02-04 10:10 | Emergency (ER) | payer MEDICARE, OTHER ==
[2023-02-04 10:30] VITALS: RESP 16
--- NOTE | 2023-02-04 10:47 | ED ---
General Adult HPI - General Chief complaint: Back Pain/Injury Stated complaint: Fall Time Seen by Provider: 02/04/23 10:28 Source: EMS, RN notes reviewed Mode of arrival: EMS Limitations: no limitations - History of Present Illness Initial comments: 72-year-old female presents to the emergency department via EMS for a fall. She reports that last night at approximately 01 100 she was going to the restroom on her right knee "gave out. " She is also reporting right elbow pain and she used a wall to hold herself up. She denies hitting her head, any loss of consciousness. She does take Eliquis for anticoagulation. She denies any dizziness, lightheadedness, chest pain, shortness of breath, nausea, vomiting, abdominal pain. She states that she took 2 Tylenol prior to arrival which helped with her pain symptoms. Patient denies any known fevers, chills, saddle paresthesias, loss of bowel or bladder function. - Related Data Home Medications Medication Instructions Recorded Confirmed Apixaban [Eliquis] 5 mg PO BID 07/29/20 02/04/23 allopurinoL [Zyloprim] 100 mg PO DAILY 07/29/20 02/04/23 Furosemide [Lasix] 20 mg PO DAILY 08/26/21 02/04/23 Sennosides [Senna] 8.6 mg PO BID 09/18/21 02/04/23 buPROPion HCL [buPROPion HCL SR] 200 mg PO BID 09/18/21 02/04/23 lisinopriL [Prinivil] 20 mg PO DAILY 09/18/21 02/04/23 Magnesium 400 mg PO DAILY 12/02/21 02/04/23 Pravastatin Sodium [Pravachol] 20 mg PO DAILY 12/02/21 02/04/23 Clotrimazole/Betameth Cream 1 applic TOPICAL BID 03/30/22 02/04/23 [Lotrisone] Potassium Chloride [Klor-Con 20] 20 meq PO DAILY 03/30/22 02/04/23 Venlafaxine HCl ER [Effexor XR] 75 mg PO DAILY 09/20/22 02/04/23 polyethylene glycoL 3350 [Miralax] 17 gm PO BID 09/20/22 02/04/23 Cyanocobalamin (Vitamin B-12) 1,000 mcg PO DAILY 11/18/22 02/04/23 [Vitamin B-12] Ferrous Sulfate [Iron (65 MG 325 mg PO DAILY 11/18/22 02/04/23 Elemental)] Cholecalciferol [Vitamin D3 (125 125 mcg PO DAILY 01/08/23 02/04/23 Mcg = 5000 Iu)] Azithromycin [Zithromax] See Taper PO DIRECTED 02/04/23 02/04/23 Cefuroxime [Ceftin] 250 mg PO Q12H 02/04/23 02/04/23 Zrgiblif-Ejjgmbux-Pqenhoaxvp 1 supp VAGINAL HS PRN 02/04/23 02/04/23 [id number] Lactulose 10 gm PO BID 02/04/23 02/04/23 Lutein 10 mg PO DAILY 02/04/23 02/04/23 clonazePAM [KlonoPIN] 0.25 mg PO BID 02/04/23 02/04/23 Previous Rx's Medication Instructions Recorded Acetaminophen Tab [Tylenol] 650 mg PO Q6HR PRN tab 01/11/23 Pregabalin [Lyrica] 75 mg PO BID #6 cap 01/11/23 Allergies Allergy/AdvReac Type Severity Reaction Status Date / Time itraconazole Allergy Unknown Verified 02/04/23 12:04 ondansetron [From Zofran] AdvReac severe Verified 02/04/23 12:04 burning @IV site, itching Review of Systems ROS Statement: Those systems with pertinent positive or pertinent negative responses have been documented in the HPI. ROS Other: All systems not noted in ROS Statement are negative. Past Medical History Past Medical History: Hypertension, Pulmonary Embolus (PE) Additional Past Medical History / Comment(s): DDD. PE September 2019. hx gout. leiden factor V, rich foot edema,, new rich leg edema( [facility] to [facility]), constipation, diverticulosis, eczema, severe urinary incontinece- uses brief, pt states dx with COVID 09/18/21 History of Any Multi-Drug Resistant Organisms: None Reported Past Surgical History: Bariatric Surgery, Cholecystectomy, Hysterectomy, Tonsillectomy Additional Past Surgical History / Comment(s): cataract sx. Gastric stapling in 1979. Cataract surgery 2015. Colonoscopy June 2020. DEDRA/BSO with umbilical hernia repair in September 2020, cataract surgery Past Anesthesia/Blood Transfusion Reactions: No Reported Reaction Past Psychological History: Anxiety, Depression Smoking Status: Never smoker Past Alcohol Use History: None Reported Past Drug Use History: None Reported - Past Family History Mother Family Medical History: Myocardial Infarction ([place]) Father Family Medical History: Myocardial Infarction ([place]) Brother(s) Family Medical History: Deep Vein Thrombosis (DVT), Myocardial Infarction ([place]), Pulmonary Embolus General Exam Limitations: no limitations General appearance: alert, in no apparent distress Head exam: Present: atraumatic, normocephalic, normal inspection Eye exam: Present: normal appearance, PERRL, EOMI. Absent: scleral icterus, conjunctival injection, periorbital swelling ENT exam: Present: normal exam, mucous membranes moist Neck exam: Present: normal inspection. Absent: tenderness, meningismus, lymphadenopathy Respiratory exam: Present: normal lung sounds bilaterally. Absent: respiratory distress, wheezes, rales, rhonchi, stridor Cardiovascular Exam: Present: regular rate, normal rhythm, normal heart sounds. Absent: systolic murmur, diastolic murmur, rubs, gallop, clicks GI/Abdominal exam: Present: soft, normal bowel sounds. Absent: distended, tenderness, guarding, rebound, rigid Extremities exam: Present: normal inspection, full ROM, normal capillary refill. Absent: tenderness, pedal edema, joint swelling, calf tenderness Back exam: Present: normal inspection, full ROM, tenderness (Mild lumbar paraspinal muscle tenderness) Neurological exam: Present: alert, oriented X3, CN II-XII intact Psychiatric exam: Present: normal affect, normal mood Skin exam: Present: warm, dry, intact, normal color. Absent: rash Course Vital Signs 02/04/23 02/04/23 02/04/23 10:26 12:29 16:20 Temperature 98.2 F 98 F 98 F Pulse Rate 77 67 68 Respiratory 16 16 16 Rate Blood Pressure 115/74 123/71 127/81 O2 Sat by Pulse 98 98 98 Oximetry - Reevaluation(s) Reevaluation #1: 02/04/23 10:46 Initial history and physical exam were performed. Patient offered Tylenol for his symptoms however she declined. Medical Decision Making - Medical Decision Making Was pt. sent in by a medical professional or institution (, PA, [employer], urgent care, hospital, or shelter...) When possible be specific @ -[No] Did you speak to anyone other than the patient for history (EMS, parent, family, police, friend...)? What history was obtained from this source @ -[No] Did you review nursing and triage notes (agree or disagree)? Why? @ -[I reviewed and agree with nursing and triage notes] Were old charts reviewed (outside hosp., previous admission, EMS record, old EKG, old radiological studies, urgent care reports/EKG's, shelter records)? Report findings @ -[No old charts were reviewed] Differential Diagnosis (chest pain, altered mental status, abdominal pain women, abdominal pain men, vaginal bleeding, weakness, fever, dyspnea, syncope, headache, dizziness, GI bleed, back pain, seizure, CVA, palpatations, mental health, musculoskeletal)? @ -[not applicable] EKG interpreted by me (3pts min.). @ -[As above] X-rays interpreted by me (1pt min.). @ -[None done] CT interpreted by me (1pt min.). @ -[None done] U/S interpreted by me (1pt. min.). @ -[None done] What testing was considered but not performed or refused? (CT, X-rays, U/S, labs)? Why? @ -[None] What meds were considered but not given or refused? Why? @ -[None] Did you discuss the management of the patient with other professionals (professionals i.e. , PA, [employer], lab, RT, psych nurse, licensed master social worker, non destructive tester, teacher, student liaison officer, behavioral health case manager)? Give summary @ -[No] Was smoking cessation discussed for >3mins.? @ -[No] Was critical care preformed (if so, how long)? @ -[No] Were there social determinants of health that impacted care today? How? (Homelessness, low income, unemployed, alcoholism, drug addiction, transportation, low edu. Level, literacy, decrease access to med. care, custodial, rehab)? @ -[No] Was there de-escalation of care discussed even if they declined (Discuss DNR or withdrawal of care, Hospice)? DNR status @ -[No] What co-morbidities impacted this encounter? (DM, HTN, Smoking, COPD, CAD, Cancer, CVA, ARF, Chemo, Hep., AIDS, mental health diagnosis, sleep apnea, morbid obesity)? @ -[None] Was patient admitted / discharged? Hospital course, mention meds given and route, prescriptions, significant lab abnormalities, going to OR and other pertinent info. @ -Discharged. This is a 72-year-old female who presents to the emergency department with low back pain, Patient had a thorough history and physical exam performed on the ED. Physical exam is essentially unremarkable. . Heart rate regular rate and rhythm, lungs clear to auscultation bilaterally abdomen is soft and nontender. Patient was given toradol and lidoderm patch with symptomatic relief. Patient had labwork performed which reveals: Acute appearing fracture of the anterior and soup. The L2 vertebral body with approximately 10% height loss and no retropulsion degenerative moderate multilevel degenerative disc disease and facet atrhopathy I discussed results in detail with the patient verbalized understanding and all questions were addressed. Return precautions were discussed at length. The patient was discharged in stable condition. Case discussed with Dr. [facility] who agrees with plan of care Undiagnosed new problem with uncertain prognosis? @ -[No] Drug Therapy requiring intensive monitoring for toxicity (Heparin, Nitro, Insulin, Cardizem)? @ -[No] Were any procedures done? @ -[No] Diagnosis/symptom? @ -low back pain - compression fracture of L2 vertebrae Acute, or Chronic, or Acute on Chronic? @ -acute Uncomplicated (without systemic symptoms) or Complicated (systemic symptoms)? @ -uncomplicated Side effects of treatment? @ -[No] Exacerbation, Progression, or Severe Exacerbation? @ -[No] Poses a threat to life or bodily function? How? (Chest pain, [place], [place], pneumonia, PE, COPD, DKA, ARF, appy, cholecystitis, CVA, Diverticulitis, Homicidal, Suicidal, threat to staff... and all critical care pts) @ -low likelihood Disposition Clinical Impression: Compression fracture of L2 Disposition: HOME SELF-CARE Condition: Stable Instructions (If sedation given, give patient instructions): Vertebral Compression Fracture (ED) Additional Instructions: Please return to the nearest emergency department if symptoms worsen or persist Is patient prescribed a controlled substance at d/c from ED?: No Referrals: Olga Andersen MD [Primary Care Provider] - 1-2 days Time of Disposition: 15:33
--- NOTE | 2023-02-04 12:28 | XR ---
EXAMINATION TYPE: XR knee complete RT DATE OF EXAM: 02/04/2023 11:49 AM INDICATION: Patient age:Female; 72 years old; Reason for study: right knee pain; COMPARISON: None. TECHNIQUE: The Right knee(s) was examined in Frontal, lateral and oblique projections. FINDINGS: No evidence of any acute osseous pathology, soft tissue swelling. There is a small joint effusion. Tricompartmental osteophyte formation involving the femoral condyles, tibial plateau and pa tella. Moderate lateral joint space narrowing and patellofemoral groove narrowing. IMPRESSION: 1. No acute osseous pathology. 2. Severe osteoarthritic changes.
[2023-02-04 12:30] VITALS: TEMP 98
--- NOTE | 2023-02-04 12:37 | XR ---
EXAMINATION TYPE: XR lumbar spine 2 or 3V DATE OF EXAM: 02/04/2023 11:49 AM INDICATION: Patient age:Female; 72 years old; Reason for study: low back pain; COMPARISON: 09/12/2022 CT and 01/08/2023 CT. TECHNIQUE: Frontal, lateral and coned in L5-S1 lateral views of the spine. FINDINGS: No evidence of any acute osseous pathology. Scattered vertebral body height loss most prono unced at L2 superior endplate. There is straightened alignment of the lumbar vertebral bodies. Mild s cattered disc space narrowing. Multilevel marginal osteophyte formation throughout the visualized spi ne. There is facet joint arthropathy throughout the spine. Scattered at least mild neural foraminal s tenosis. Surgical changes seen in the abdomen with surgical clips present. IMPRESSION: 1. Superior endplate compression deformity which is new from 01/08/2023. Further evaluation with MRI r ecommended. 2. Moderate multilevel disc degeneration worse at L5-S1.
--- NOTE | 2023-02-04 13:08 | XR ---
EXAMINATION TYPE: XR elbow complete RT DATE OF EXAM: 02/04/2023 12:51 PM INDICATION: Patient age:Female; 72 years old; Reason for study: right elbow pain; PHH. COMPARISON: Right elbow radiograph 12/20/2022 TECHNIQUE: The right elbow was examined in AP, lateral, and oblique projections. FINDINGS: No evidence of any acute osseous pathology, joint dislocation, or soft tissue swelling is n oted. No evidence of joint effusion is present. Large spur redemonstrated emanating from the olecran on at the distal triceps tendon attachment. IMPRESSION: No evidence of acute fracture. No significant change from prior exam.
--- NOTE | 2023-02-04 14:13 | CT ---
EXAMINATION TYPE: CT lumbar spine wo con CT DLP: 1878.6 mGycm, Automated exposure control for dose reduction was used. DATE OF EXAM: 02/04/2023 1:48 PM COMPARISON: CT chest abdomen pelvis 01/08/2023, lumbar spine radiograph 02/04/2023. CLINICAL INDICATION:Female, 72 years old with history of Low back pain; PHH, back pain TECHNIQUE: Multiple axial images were obtained from the midportion of T11 through the sacroiliac martín nts. Soft tissue and bone windows in coronal and sagittal planes were obtained and reviewed. FINDINGS: Alignment: There are 5 lumbar type vertebral bodies with grade 1 anterolisthesis of L3 on L4. Bone: Acute appearing fracture of the L2 vertebral body involving the superior anterior endplates wit hout evidence of retropulsion. There is approximately 10% height loss. Mild paraspinal edema suggeste d. Near complete fusion of the L4 and L5 vertebral bodies. Multilevel facet arthropathy. Multilevel d egenerative disc disease with disc space narrowing, endplate sclerosis, vacuum disc disease, and ante rior osteophytosis. Discs: T12-L1: No spinal canal or neural foraminal stenosis is identified. L1-L2: No significant central canal stenosis. Bilateral facet arthropathy the neural foramen are funez nt bilaterally. L2-L3: Broad-based disc bulge with mild to moderate effacement of anterior thecal sac. Bilateral face t arthropathy. Mild bilateral neural foraminal stenosis. L3-L4: Grade 1 anterolisthesis. Broad-based disc bulge with mild effacement of the anterior thecal sa c. Bilateral facet arthropathy. Mild bilateral neural foraminal stenosis. L4-L5: Broad disc bulge with mild effacement of the anterior thecal sac. Bilateral facet arthropathy . Mild bilateral neural foraminal stenosis. L5-S1: Broad-based disc bulge without significant central canal stenosis. Bilateral facet arthropathy . The neural foramen are patent bilaterally. Other: Partially visualized postsurgical changes of the stomach. Right renal cyst. IMPRESSION: 1. Acute appearing fracture of the anterior and superior endplates of L2 vertebral body with approxim ately 10% height loss and no retropulsion. 2. Moderate multilevel degenerative disc disease and facet arthropathy as described above.
[2023-02-04] MEDS: KETOROLAC 15 MG/ML 1 ML VIAL IM STA (15:51)
[2023-02-04] MEDS: ACET/COD 300 MG/30 MG STARTER PACK 6 TAB BTL PO STA (15:51)
[2023-02-04] MEDS: LIDOCAINE 5% PATCH TOPICAL SCH (15:52)
[2023-02-04 16:22] VITALS: BP 127/81; PULSE 68
== END 2023-02-04 16:22 | disposition home or self-care (01) ==
LOC: EC 10:10
DX: S32.029A Unspecified fracture of second lumbar vertebra, initial encounter for closed fracture (principal); I10 Essential (primary) hypertension; F41.9 Anxiety disorder, unspecified; F32.A Depression, unspecified; Z88.8 Allergy status to other drugs, medicaments and biological substances; Z79.899 Other long term (current) drug therapy; W18.30XA Fall on same level, unspecified, initial encounter; Y92.002 Bathroom of unspecified non-institutional (private) residence as the place of occurrence of the external cause
CPT/HCPCS: 72100; 73080; 73562; 72131; 99284; 96372; J1885

== ENCOUNTER → 2023-02-07 | Outpatient (CLI) | payer MEDICARE, OTHER ==
--- NOTE | 2023-02-07 10:34 | US ---
EXAMINATION TYPE: US kidneys/renal and bladder DATE OF EXAM: 02/07/2023 COMPARISON: NONE CLINICAL INDICATION: Female, 72 years old with history of N39.0 UTI; UTI, history of right renal cyst EXAM MEASUREMENTS: Right Kidney: 9.2 x 4.7 x 4.1 cm Left Kidney: 9.6 x 4.4 x 3.8 cm Right Kidney: anechoic area mid = 1.9 x 3.2 x 1.8cm Left Kidney: no evidence of hydronephrosis Bladder: appears wnl Bilateral Jets seen: no There is no evidence for hydronephrosis at this point in time. No nephrolithiasis is seen. The urin marian bladder is anechoic. Bilateral ureteral jets are seen. IMPRESSION: Parapelvic cyst right kidney.
== END | disposition home or self-care (01) ==
LOC: RADUSWWP 09:50
PROVIDERS: ATTEND Family Medicine
DX: N39.0 Urinary tract infection, site not specified (principal); N28.1 Cyst of kidney, acquired
CPT/HCPCS: 76770

== ENCOUNTER → 2023-02-11 | Outpatient (CLI) | payer MEDICARE, OTHER ==
--- NOTE | 2023-02-14 05:10 | BD ---
EXAMINATION TYPE: Axial Bone Density DATE OF EXAM: 02/11/2023 CLINICAL HISTORY: 72 years old Female. ICD-10 CODE: N95.1 Postmenopausal symptoms, M89.9 Disorder of bone Comparison: Prior study December 19, 2018 Height: 64" Weight: 220.1 FRAX RISK QUESTIONS: Alcohol (3 or more units per day): No Family History (Parent hip fracture): No Glucocorticoids (More than 3mos): No (Ex: prednisone, prednisolone, methylprednisolone, dexamethasone, and hydrocortisone). History of Fracture in Adulthood: No Secondary Osteoporosis: 1. Type 1 Diabetes: No 2. Hyperthyroidism: No 3. Menopause before 45: Yes, 42 4. Malnutrition: No 5. Chronic liver disease: No Rheumatoid Arthritis: No Current Tobacco Use: No RISK FACTORS HISTORY OF: Hip Fracture (Right/Left): No Spine Fracture: No History of Wrist Fracture: No Surgery to Spine/Hip(right/left)/Wrist (right/left): No Family History of Osteoporosis: No Active: No Diet low in dairy products/other sources of calcium: No Postmenopausal woman: Yes Lost more than 2 inches in height since high school: Yes Frequent falls: Yes Poor Health: No Hyperparathyroidism: No Adrenal Insufficiency: No MEDICATIONS: Prednisone or other steroids: No Thyroid Medications: No Osteoporosis Medications: No Additional Medications: Possible blood pressure medications, many medications for depression and anxi ety, vitamin D3 Additional History: None EXAM MEASUREMENTS: Bone mineral densitometry was performed using the Dispop System. Bone mineral density as measured about the Lumbar spine is: ----- L1-L4(G/cm2): 1.552 T Score Values are as follows: ----- L1: 2.9 ----- L2: 5.5 ----- L3: 4.0 ----- L4: 0.5 ----- L1-L4: 3.1 Z Score Values are as follows: ----- L1: 3.4 ----- L2: 6.1 ----- L3: 4.6 ----- L4: 1.1 ----- L1-L4: 3.7 Bone mineral density has: increased 7.3% since study of: 04/04/2014 Bone mineral density about the R hip (g/cm2): 1.137 Bone mineral density about the L hip (g/cm2): 1.168 T Score values are as follows: -----R Neck: 0.7 -----L Neck: 0.4 -----R Total: 1.0 -----L Total: 1.3 Z Score values are as follows: -----R Neck: 1.8 -----L Neck: 1.6 -----R Total: 1.9 -----L Total: 2.2 Bone mineral density has: decreased -8.7% since study of: 04/04/2014 FRAX%s: The graph provided illustrates a 6.1% chance for a major osteoporotic fx and a 0.4% chance fo r the hips probability for fx in 10 years time. IMPRESSION: Normal (Values between +1 and -1 indicate normal bone mass). Consider repeating this study in 5 year s or sooner if there is some new clinical indication. NOTE: T-SCORE=SD OF THE YOUNG ADULT MEAN.
--- NOTE | 2023-02-14 08:32 | MM ---
Reason for Exam: Screening (asymptomatic). Last mammogram was performed 2 year(s) and 7 month(s) ago. Patient History: Menarche at age 14. First Full-Term at age 26. Postmenopausal. Estrogen for 2 years, 1 month. Progesterone for 2 years, 1 month. Risk Values: Evita 5 year model risk: 1.8%. NCI Lifetime model risk: 4.1%. Prior Study Comparison: 02/22/2017 Bilateral Screening Mammogram, [facility]. 12/19/2018 Bilateral Screening Mammogram, [facility]. 07/16/2020 Bilateral Screening Mammogram, [facility]. Tissue Density: The breast tissue is almost entirely fat. Findings: Analyzed By CAD. There is no suspicious group of microcalcifications or new suspicious mass in either breast. Overall Assessment: Negative, BI-RAD 1 Management: Screening Mammogram of both breasts in 1 year. A clinical breast exam by your physician is recommended on an annual basis and results should be correlated with mammographic findings. [facility] will attempt to contact patient to return for supplemental views and ultrasound if indicated. Electronically signed and approved by: Aguilar Martel DO
== END | disposition home or self-care (01) ==
LOC: RADBDWWP 12:40
PROVIDERS: ATTEND Family Medicine
DX: Z12.31 Encounter for screening mammogram for malignant neoplasm of breast (principal); N95.1 Menopausal and female climacteric states; M89.9 Disorder of bone, unspecified
CPT/HCPCS: 77067; 77080

== ENCOUNTER → 2023-02-23 | Outpatient (CLI) | payer MEDICARE, OTHER ==
[2023-02-23 15:56] LABS: Basophils # (A) 0.02 X 10*3/uL (0.00-0.10); Basophils % (A) 0.4 %; Eosinophils # (A) 0.03 X 10*3/uL (0.04-0.35); Eosinophils % (A) 0.6 %; HCT 42.6 % (37.2-46.3); HGB 13.4 g/dL (12.0-15.0); Immature Grans, Automated 1.2 %; Lymphocytes # (A) 1.81 X 10*3/uL (0.90-5.00); Lymphocytes % (A) 35.8 %; MCH 30.2 pg (27.0-32.0); MCHC 31.5 g/dL (32.0-37.0); MCV 96.2 fL (80.0-97.0); Mean Platelet Volume 10.7 fL (9.5-12.2); Monocytes # (A) 1.01 X 10*3/uL (0.20-1.00); NRBC Per 100 WBC 0 /100 WBCS (0.0-0.0); Neutrophils # (A) 2.12 X 10*3/uL (1.80-7.70); Platelet Count 156 X 10*3/uL (140-440); RBC 4.43 X 10*6/uL (4.10-5.20); RDW 14.6 % (11.5-14.5); WBC 5.05 X 10*3/uL (4.50-10.00)
[2023-02-23 16:02] LABS: % Iron Saturation 22.9 (12.00-45.00); T4, Free (Free Thyroxine) 1.58 ng/dL (0.800-1.800)
[2023-02-23 16:03] LABS: African American GFR (CKD) 82.2 (60.0-200.0); Albumin 4.3 g/dL (3.8-4.9); Albumin/Globulin Ratio 1.84 (1.60-3.17); Anion Gap 13.7 mmol/L (10.00-18.00); BUN/Creat Ratio 10.74 Ratio (12.00-20.00); Blood Urea Nitrogen 8.7 mg/dL (9.0-27.0); Calcium 10.5 mg/dL (8.7-10.3); Carbon Dioxide 26.6 mmol/L (20.0-27.5); Globulin 2.4 g/dL (1.6-3.3); Non-African American GFR(CKD) 70.9 (60.0-200.0); Total Bilirubin 0.4 mg/dL (0.30-1.20); Total Protein 6.7 g/dL (6.2-8.2)
== END | disposition home or self-care (01) ==
LOC: LABWHC1 11:36
PROVIDERS: ATTEND Family Medicine
DX: N18.31 Chronic kidney disease, stage 3a (principal); N39.0 Urinary tract infection, site not specified; R79.9 Abnormal finding of blood chemistry, unspecified
CPT/HCPCS: 36415; 80053; 83540; 83550; 83735; 84439; 84443; 85025

== ENCOUNTER → 2023-03-07 | Outpatient (CLI) | payer MEDICARE, OTHER | END | disposition home or self-care (01) | LOC: LABWHC1 15:42 | PROVIDERS: ATTEND Family Medicine | DX: Z53.9 Procedure and treatment not carried out, unspecified reason (principal) ==

== ENCOUNTER → 2023-03-07 | Outpatient (CLI) | payer MEDICARE, OTHER ==
[2023-03-07 16:54] LABS: INR 0.9 (<1.2); Partial Thromboplastin Time 24.6 sec (22.0-30.0); Prothrombin Time 9.7 sec (9.0-12.0)
[2023-03-08 02:25] LABS: African American GFR (CKD) 83.6 (60.0-200.0); Albumin 4.4 g/dL (3.8-4.9); Albumin/Globulin Ratio 1.83 (1.60-3.17); Anion Gap 12.8 mmol/L (10.00-18.00); BUN/Creat Ratio 18.25 Ratio (12.00-20.00); Basophils # (A) 0.02 X 10*3/uL (0.00-0.10); Basophils % (A) 0.3 %; Blood Urea Nitrogen 14.6 mg/dL (9.0-27.0); Calcium 10.9 mg/dL (8.7-10.3); Carbon Dioxide 26.2 mmol/L (20.0-27.5); Eosinophils # (A) 0.06 X 10*3/uL (0.04-0.35); Globulin 2.4 g/dL (1.6-3.3); HCT 40.5 % (37.2-46.3); HGB 12.8 g/dL (12.0-15.0); Lymphocytes # (A) 2.16 X 10*3/uL (0.90-5.00); Lymphocytes % (A) 36.9 %; MCH 30.5 pg (27.0-32.0); MCHC 31.6 g/dL (32.0-37.0); MCV 96.4 fL (80.0-97.0); Mean Platelet Volume 10.3 fL (9.5-12.2); Monocytes # (A) 1.21 X 10*3/uL (0.20-1.00); Monocytes % (A) 20.7 %; NRBC Per 100 WBC 0 /100 WBCS (0.0-0.0); Neutrophils # (A) 2.34 X 10*3/uL (1.80-7.70); Neutrophils % (A) 40.1 %; Non-African American GFR(CKD) 72.1 (60.0-200.0); Platelet Count 239 X 10*3/uL (140-440); Potassium 3.9 mmol/L (3.5-5.5); RDW 14.1 % (11.5-14.5); Total Bilirubin 0.3 mg/dL (0.30-1.20); Total Protein 6.8 g/dL (6.2-8.2); WBC 5.85 X 10*3/uL (4.50-10.00)
[2023-03-08 02:57] LABS: Procalcitonin 0.12 ng/mL (0.02-0.09)
== END | disposition home or self-care (01) ==
LOC: LABPAT 15:40
PROVIDERS: ATTEND Orthopaedic Surgery
DX: Z01.812 Encounter for preprocedural laboratory examination (principal); M17.11 Unilateral primary osteoarthritis, right knee
CPT/HCPCS: 80053; 83036; 83880; 84145; 84443; 85025; 85610; 85730; 86038; 86039; 87070

== ENCOUNTER 2023-03-28 05:35 | Observation (INO) | payer MEDICARE, OTHER ==
[~2023-03-28 05:35] MED LIST changes: +ACETAMINOPHEN TAB 500 MG TAB PO PRN; +GABAPENTIN 300 MG CAP PO PRN; -LACTATED RINGERS 1,000 ML IV SCH; -LIDOCAINE 1% (10MG/ML) FOR IV START INTRADERMA PRN; +MELOXICAM 7.5 MG TAB PO PRN; +TRANEXAMIC ACID IN NACL,ISO-OS 1,000 MG in SALINE 1 100ML.BAG IVPB PRN
[2023-03-28] MEDS ORDERED: HYDROmorphone 0.5 MG/0.5 ML SYRINGE IVP PRN ×4 (06:18→07:17)
[2023-03-28] MEDS ORDERED: DEXAMETHASONE SOD PHOSPHATE 4 MG/ML 1 ML VIAL IV ONE (06:18)
[2023-03-28] MEDS ORDERED: MIDAZOLAM 2 MG/2 ML VIAL IV PRN (06:18)
[2023-03-28] MEDS ORDERED: LIDOCAINE 1% (10MG/ML) FOR IV START INTRADERMA PRN (06:18)
[2023-03-28] MEDS: LACTATED RINGERS 1,000 ML IV SCH (06:51)
[2023-03-28] MEDS ORDERED: fentaNYL (PF) 50 MCG/ML 2 ML AMP IVP ONE (07:01)
[2023-03-28] MEDS ORDERED: MIDAZOLAM 2 MG/2 ML VIAL IVP ONE (07:01)
[2023-03-28] MEDS ORDERED: NA PHOS,M-B/NA PHOS,DI-BA 133 ML ENEMA RECTAL PRN (07:17)
[2023-03-28] MEDS ORDERED: NALOXONE 0.4 MG/ML 1 ML VIAL IV PRN (07:17)
[2023-03-28] MEDS ORDERED: bisacodyL 10 MG SUPP RECTAL PRN (07:17)
[2023-03-28] MEDS ORDERED: MAGNESIUM HYDROXIDE 2,400 MG/10 ML CUP PO PRN (07:17)
[2023-03-28] MEDS ORDERED: HYDROcodone/APAP 7.5-325MG 1 EACH TAB PO PRN (07:21)
[2023-03-28] MEDS ORDERED: MIDAZOLAM 2 MG/2 ML VIAL ONE (07:23)
[2023-03-28] MEDS ORDERED: fentaNYL (PF) 50 MCG/ML 2 ML AMP ONE (07:23)
[2023-03-28] MEDS ORDERED: PHENYLEPHRINE-0.9% NACL SYG 1,000 MCG/10 ML SYRINGE ONE (07:23)
[2023-03-28] MEDS ORDERED: PROPOFOL 10 MG/ML 20 ML VIAL IV ONE (07:23)
[2023-03-28] MEDS ORDERED: SODIUM CHLORIDE 0.9% (PF) 10 ML VIAL ONE (07:23)
[2023-03-28] MEDS ORDERED: ROPIVACAINE 5 MG/ML 30 ML VIAL ONE (07:23)
[2023-03-28] MEDS ORDERED: TRANEXAMIC ACID IN NACL,ISO-OS 1,000 MG/100 ML BAG ONE (07:23)
[2023-03-28] MEDS ORDERED: ceFAZolin 1,000 MG in SODIUM CHLORIDE 0.9% 1,000 ML IRRIGATION ONE (07:28)
[2023-03-28] MEDS ORDERED: LACTATED RINGERS 1,000 ML IV ONE (08:40)
--- NOTE | 2023-03-28 08:45 | P.OP ---
Date of Procedure: 03/28/23 Preoperative Diagnosis: Severe osteoarthritis right knee Postoperative Diagnosis: Severe osteoarthritis right knee Procedure(s) Performed: Right total knee arthroplasty Implants: [employer] Nephew Journey II CR Oxinium Bi-cruciate stabilized femoral component size 6, right [employer] Journey nonporous tibial baseplate size 6, right [employer] Journey II, constrained articular insert, size 11 mm, Size 5-6, right [employer] Journey Dai II resurfacing patellar component, oval, 35 mm All components were cemented using Palacos R bone cement The articulation is Oxinium on polyethylene Anesthesia: spinal Surgeon: Harpreet Garcse Lead Manufacturing Engineering Tech #1: Alyssia Sparks Estimated Blood Loss (ml): 30 Pathology: none sent Condition: stable Disposition: PACU Indications for Procedure: The patient's knee is end-stage, and conservative management has failed. The operation of knee replacement has been discussed at length in the office, as well as potential risks and complications. These are inclusive of, but not limited to: Infection, bleeding, scarring, discomfort, stiffness, blood vessel and nerve damage, need for further surgery, failure to relieve symptoms, persistence, recurrence, or worsening of problems, loosening, dislocation, wear, blood clot, pulmonary embolism, , gait dysfunction, stiffness, and other risks as discussed in the office. Patient elects to proceed and the consent form has been signed. Operative Findings: The operative findings are consistent with severe osteoarthritis of the right knee Description of Procedure: The patient was seen in the preoperative area, the consent was reviewed and the operative site was marked with a skin marker. The patient verified the procedure and the operative site. An adductor canal pain catheter and an iPACK block were placed by anesthesia in the preoperative area. The patient was then brought to the operating room and positioned on the operating room table in the supine position. Preoperative antibiotics and a gram of tranexamic acid were given intravenously. A spinal anesthetic was administered by the anesthesia department. Care was taken to make sure that all pressure points were adequately padded. A tourniquet was placed on the upper thigh and the lower extremity was prepped with ChloraPrep and draped in usual sterile fashion. A universal time-out was then performed which confirmed the patient's name, surgical site, ALLERGIES, and consent. The lower extremity was then exsanguinated and tourniquet was inflated to 250 mmHg. A standard anterior midline approach to the knee was performed. The skin and subcutaneous tissue were sharply dissected down to the patellar tendon. A medial parapatellar arthrotomy was then performed. The knee was then extended, the patellar was everted, and the knee was flexed. The infra-patellar fat pad was removed in order to enhance exposure. The anterior horns of both menisci were excised, and a release was performed to the posterior medial aspect of the knee. On gross visual inspection, there was complete loss of articular cartilage in the medial and patellofemoral joint spaces. There was also significant cartilage damage in the lateral compartment. There were multiple periarticular osteophytes globally about the knee which were then removed with a Ronguer. The femoral canal was then opened with the 9.5 mm intramedullary drill. The 8 mm intramedullary lucita was then inserted into the femoral canal with the distal femoral cutting guide set for 5 of valgus. The distal femoral cutting block was then pinned in place. The intramedullary lucita was then removed, and the distal femur was then cut. The cutting block was then removed and the cut was checked for symmetry. The resected bone was then measured to confirm the appropriate distal femoral resection. Next, the sizing guide was then placed and set for 3 external rotation based off of the epicondylar axis and Mahnomen's line. Pins were then placed and the drill holes, and the femur was sized with the sizing stylus. The pins were then removed, and the sizing guide was then removed. The spikes of the appropriate size femoral block was then placed into the predrilled holes, and malleted into place. Two 45 mm pins were then placed into the fixation holes on the cutting block. An jagjit wing was then used to ensure there would be no notching with the anterior cut. The anterior condyles were cut without notching. The anterior chord cut was then performed, followed by the posterior cut, posterior chamfer cut, and the anterior chamfer cut. The collateral ligaments were protected during the entire process. The cutting block was then removed. Any remaining bone and osteophytes were removed from the femur with a Ronguer. Attention was then directed to the tibia. The remaining ACL was removed with a Ronguer, and the tibia was then gently subluxed forward with a large bent knee retractor. Any remaining menisci were excised. The posterior lateral corner was cauterized in order to coagulate the lateral geniculate artery. The extra medullary tibial cutting guide was then placed, set for the appropriate rotation, slope, and depth of resection. The proximal tibia cutting guide was then pinned in place. Proximal tibia was then cut and sized. A curved osteotome was then used to remove any posterior osteophytes from the distal femur. The femoral trial was placed. The box guide was used to remove the intracondylar bone for the box.. The box trial was then placed. The tibial trial was placed with the appropriate-sized insert. The knee was able to fully extend and flex to 130 and was stable throughout all range of motion. The knee was then extended and the patella was everted. Patella was then measured, and then using an osteotomy guide, the patella was cut at the appropriate level. The patellar component was sized. The patellar drill guide was placed and the patella was drilled. The patella trial was then placed. The knee was then taken through range of motion with the patella trial and the patella tracked normally using the no thumbs technique. The patella trial was then removed. The knee was then flexed and lug holes were drilled through the femoral trial and the femoral trial was then removed. The tibial was then re-exposed, and the tibial broach guide was then pinned in place after it was set for the appropriate rotation to allow for the most coverage without overhang. The tibia was then reamed and broached. The femoral canal was plugged with autologous bone. The cut surfaces of bone were then irrigated with pulsatile lavage. The knee was also irrigated with Irrisept solution. The components were then opened, the cement was mixed. Cement was placed on the backside of the femoral, tibial, and patellar components. Cement was then applied to the tibial surface and pressurized into the surface using finger pressurization technique. The tibial component was then applied and excess cement was removed after it was impacted securely noted to be flush with the cut surface. In similar fashion, the cement was applied to the cut femoral surface, pressurized and using finger pressurization the component was impacted in place. Excess cement was removed. The polyethylene spacer was then implanted and locked into position. Patellar component was then applied in a similar technique and the patellar clamp was used to hold patella in place while the cement hardened. The knee was held in full extension while the cement hardened. Once the cement had fully hardened, the knee was reinspected. Any other cement extrusion was removed the final range of motion testing showed range of motion from 0-130 with excellent stability, both medial and laterally and appropriate alignment of the leg. Patella tracked normally. After the cemented hardened, the tourniquet was released and hemostasis was obtained. A second gram of transexamic acid was given intravenously. The knee was again irrigated. The knee was again taken through range of motion and found to be stable throughout all range of motion of 0-130, and the patella tracked normally. The fascia was then closed with 0 Vicryl followed by #2 strata fix suture. The subcutaneous tissue was closed with 3-0 Vicryl and 3-0 strata fix. Exofin glue was used for the skin and placed with the knee in flexion. After the glue had dried, and Optafoam silver impregnated dressing was applied. A lightly compressive dressing was applied using web roll and Marcus wrap. Patient was then transferred to the stretcher and taken to recovery room in stable condition. Sponge and needle counts were correct. The assistant professor surgical technology CURTIS Espinoza was required due the complexity surgery and the need for a skilled medical surgical tech. She assisted in positioning, draping, retraction, and closure of the wound.
[2023-03-28] MEDS ORDERED: ROPIVACAINE 1,100 MG, SODIUM CHLORIDE 0.9% 500 ML 330 ML, EMPTY PAIN BALL 1 EACH MISCELLANE PRN ×2 (09:15)
--- NOTE | 2023-03-28 09:18 | P.ANPRN ---
Procedure Note - Anesthesia - Nerve Block Performed Right Adductor Canal Infusion Time Out Performed: Yes Date of Procedure: 03/28/23 Location of Patient: PreOp Indication: Acute Post-Operative Pain, Dx/Pain Location (Right knee), Requested by Surgeon Specifically requested for management of pain by DrMatt: Harpreet Garces Sedation Type: Sedate with meaningful contact maintained Preparation: Sterile Prep, Sterile Dressing Position: Supine Catheter: Indwelling Needle Types: Pajunk Needle Gauge: 18 Ultrasound used to visualize needle placement: Yes Ultrasound used to observe medication spread: Yes Injectate: 0.5% Ropivacaine (see comment for volume) (20 cc + saline 10 mL) Blood Aspirated: No Pain Paresthesia on Injection Noted: No Resistance on Injection: Normal Image Stored and Saved: Yes Events: Uneventful and Well Tolerated Right iPack Single Time Out Performed: Yes Date of Procedure: 03/28/23 Location of Patient: PreOp Indication: Acute Post-Operative Pain, Dx/Pain Location, Requested by Surgeon Specifically requested for management of pain by : Harpreet Garces Sedation Type: Sedate with meaningful contact maintained Preparation: Sterile Prep Position: Left Lateral Catheter: None Needle Types: Pajunk Needle Gauge: 21 Ultrasound used to visualize needle placement: Yes Ultrasound used to observe medication spread: Yes Injectate: 0.5% Ropivacaine (see comment for volume) (15 cc = saline 10 cc) Blood Aspirated: No Pain Paresthesia on Injection Noted: No Resistance on Injection: Normal Image Stored and Saved: Yes Events: Uneventful and Well Tolerated
--- NOTE | 2023-03-28 09:45 | XR ---
EXAMINATION TYPE: XR knee limited RT DATE OF EXAM: 03/28/2023 9:35 AM INDICATION: Patient age:Female; 73 years old; Reason for study: Evaluation for Postop abnormality and alignment; [facility]. COMPARISON: Right knee radiograph 02/04/2023 TECHNIQUE: The Right knee(s) was examined in AP and crosstable lateral projections. FINDINGS: Postsurgical changes from total right knee arthroplasty with distal femoral and proximal ti bial components. Hardware appears intact and appropriately aligned. There is associated soft tissue e miguel and gas. No acute fracture or dislocation. IMPRESSION: Postsurgical changes from right total knee arthroplasty. Hardware appears intact with appropriate ali gnment.
[2023-03-28] MEDS: HYDROcodone/APAP 7.5-325MG 1 EACH TAB PO PRN ×2 (12:38→19:00)
--- NOTE | 2023-03-28 14:49 | P.CONS ---
History of Present Illness - Reason for Consult Consult date: 03/28/23 Postop med management - Chief Complaint Status post right knee surgery - History of Present Illness 73-year-old lady with past medical history significant for pulmonary embolism, hypertension, factor V Leyden, diverticulosis, degenerative disease of joint was admitted for right knee surgery Patient is seen as a consultation postoperatively. Postoperatively patient is alert and nontender 4 denies fever, chills, chest, abdominal pain nausea vomiting diarrhea Patient does complain of right knee pain No blood work available at this point however CBC and basic metabolic panel ordered Home medications reviewed and reconciled Review of Systems REVIEW OF SYSTEMS: Right knee pain CONSTITUTIONAL: No fever, no malaise, no fatigue. HEENT: No recent visual problems or hearing problems. Denied any sore throat. CARDIOVASCULAR: No chest pain, orthopnea, PND, no palpitations, no syncope. PULMONARY: No shortness of breath, no cough, no hemoptysis. GASTROINTESTINAL: No diarrhea, no nausea, no vomiting, no abdominal pain. NEUROLOGICAL: No headaches, no weakness, no numbness. HEMATOLOGICAL: Denies any bleeding or petechiae. GENITOURINARY: Denies any burning micturition, frequency, or urgency. MUSCULOSKELETAL/RHEUMATOLOGICAL: Denies any joint pain, swelling, or any muscle pain. ENDOCRINE: Denies any polyuria or polydipsia. Past Medical History Past Medical History: Hypertension, Pulmonary Embolus (PE), Skin Disorder Additional Past Medical History / Comment(s): DDD. PE September 2019. hx gout. leiden factor V, rich foot edema,, new rich leg edema( pt to call [facility]), constipation, diverticulosis, eczema, severe urinary incontinece- uses brief, pt states dx with COVID 09/18/21 History of Any Multi-Drug Resistant Organisms: None Reported Past Surgical History: Bariatric Surgery, Cholecystectomy, Hysterectomy, Tonsillectomy Additional Past Surgical History / Comment(s): cataract sx. Gastric stapling in 1979. Cataract surgery 2015. Colonoscopy June 2020. EDDRA/BSO with umbilical hernia repair in September 2020, cataract surgery Past Anesthesia/Blood Transfusion Reactions: No Reported Reaction Additional Past Anesthesia/Blood Transfusion Reaction / Comm: no blood tx hx Past Psychological History: Anxiety, Depression Smoking Status: Never smoker Past Alcohol Use History: None Reported Past Drug Use History: None Reported - Past Family History Mother Family Medical History: Myocardial Infarction ([place]) Father Family Medical History: Myocardial Infarction ([place]) Brother(s) Family Medical History: Deep Vein Thrombosis (DVT), Myocardial Infarction ([place]), Pulmonary Embolus Medications and Allergies Home Medications Medication Instructions Recorded Confirmed Type Apixaban [Eliquis] 5 mg PO BID 07/29/20 03/24/23 History allopurinoL [Zyloprim] 100 mg PO DAILY 07/29/20 03/24/23 History Furosemide [Lasix] 20 mg PO DAILY 08/26/21 03/24/23 History Sennosides [Senna] 8.6 mg PO BID 09/18/21 03/24/23 History buPROPion HCL [buPROPion HCL SR] 200 mg PO BID 09/18/21 03/24/23 History lisinopriL [Prinivil] 10 mg PO DAILY 09/18/21 03/24/23 History Magnesium 400 mg PO DAILY 12/02/21 03/24/23 History Pravastatin Sodium [Pravachol] 40 mg PO DAILY 12/02/21 03/24/23 History Clotrimazole/Betameth Cream 1 applic TOPICAL BID 03/30/22 03/24/23 History [Lotrisone] Cyanocobalamin (Vitamin B-12) 1,000 mcg PO DAILY 11/18/22 03/24/23 History [Vitamin B-12] Ferrous Sulfate [Iron (65 MG 325 mg PO DAILY 11/18/22 03/24/23 History Elemental)] Cholecalciferol [Vitamin D3 (125 125 mcg PO DAILY 01/08/23 03/24/23 History Mcg = 5000 Iu)] Acetaminophen Tab [Tylenol] 650 mg PO Q6HR PRN tab 01/11/23 03/24/23 Rx Pregabalin [Lyrica] 75 mg PO BID #6 cap 01/11/23 03/24/23 Rx clonazePAM [KlonoPIN] 0.25 mg PO BID 02/04/23 03/24/23 History HYDROcodone/APAP 7.5-325MG [[place] 1 - 2 tab PO Q6H PRN #32 tab 03/28/23 Rx 7.5-325] Sennosides [Senokot] 2 tab PO DAILY PRN #60 tablet 03/28/23 Rx Allergies Allergy/AdvReac Type Severity Reaction Status Date / Time itraconazole Allergy Unknown Verified 03/28/23 06:19 ondansetron [From Zofran] AdvReac severe Verified 03/28/23 06:19 burning @IV site, itching Physical Exam Vitals: Vital Signs Temp Pulse Pulse Resp BP Pulse Ox 03/28/23 09:51 58 L 16 123/73 100 03/28/23 09:36 59 L 16 119/71 98 03/28/23 09:21 61 16 113/62 99 03/28/23 09:06 98.2 F 58 L 16 105/66 100 03/28/23 07:23 74 16 146/88 97 03/28/23 06:29 97.8 F 75 16 142/95 96 Intake and Output 03/27/23 03/28/23 03/28/23 22:59 06:59 14:59 Intake Total 100 1101 Output Total 30 Balance 100 1071 Intake: IV 100 1101 Output: Estimated Blood Loss 30 Other: Weight 102.7 kg 102.7 kg PHYSICAL EXAMINATION: GENERAL: The patient is alert and oriented x3, not in any acute distress. Well developed, well nourished. HEENT: Pupils are round and equally reacting to light. EOMI. No scleral icterus. No conjunctival pallor. Normocephalic, atraumatic. No pharyngeal erythema. No thyromegaly. CARDIOVASCULAR: S1 and S2 present. No murmurs, rubs, or gallops. PULMONARY: Chest is clear to auscultation, no wheezing or crackles. ABDOMEN: Soft, nontender, nondistended, normoactive bowel sounds. No palpable organomegaly. MUSCULOSKELETAL: Status post right knee surgery, knee bandage EXTREMITIES: No cyanosis, clubbing, or pedal edema. NEUROLOGICAL: Gross neurological examination did not reveal any focal deficits. SKIN: No rashes. Assessment and Plan Assessment: Assessment and plan * Status post right total knee arthroplasty secondary to severe osteoarthritis of right knee * History of pulmonary embolism * Hypertension * Dyslipidemia * In regards to postoperative care, continue postoperative pain management, DVT prophylaxis per primary team * In regards to history of pulmonary embolism continue patient on ELIQUIS 5mg BID * Regards to hypertension continue patient on lisinopril * Patient will need physical therapy occupational therapy evaluation
[2023-03-28] MEDS: clonazePAM 0.5 MG TAB PO SCH (22:41)
[2023-03-28] MEDS: SENNOSIDES-DOCUSATE SODIUM 1 EACH TAB PO SCH (22:41)
[2023-03-28] MEDS: SODIUM CHLORIDE 0.9% 1,000 ML IV SCH ×2 (22:42→22:50)
[2023-03-28] MEDS: PREGABALIN 75 MG CAP PO SCH (22:42)
[2023-03-28] MEDS: buPROPion SR 100 MG TABLET.ER PO SCH (22:48)
[2023-03-29] MEDS: LACTATED RINGERS 1,000 ML IV SCH (02:57)
[2023-03-29] MEDS: HYDROcodone/APAP 7.5-325MG 1 EACH TAB PO PRN ×4 (02:59→21:41)
[2023-03-29] MEDS: CYANOCOBALAMIN 500 MCG TAB PO SCH (08:37)
[2023-03-29] MEDS: PRAVASTATIN SODIUM 20 MG TAB PO SCH (08:37)
[2023-03-29] MEDS: lisinopriL 10 MG TAB PO SCH (08:37)
[2023-03-29] MEDS: FUROSEMIDE 20 MG TAB PO SCH (08:37)
[2023-03-29] MEDS: PREGABALIN 75 MG CAP PO SCH ×2 (08:37→21:44)
[2023-03-29] MEDS: FERROUS SULFATE 325 MG TAB PO SCH (08:37)
[2023-03-29] MEDS: APIXABAN 5 MG TAB PO SCH ×2 (08:37→21:41)
[2023-03-29] MEDS: allopurinoL 100 MG TAB PO SCH (08:38)
[2023-03-29] MEDS: clonazePAM 0.5 MG TAB PO SCH ×2 (08:38→21:43)
[2023-03-29] MEDS: buPROPion SR 100 MG TABLET.ER PO SCH ×2 (08:38→21:44)
--- NOTE | 2023-03-29 08:54 | P.PN ---
Subjective Progress Note Date: 03/29/23 This is a 73-year-old female who is status post right total knee arthroplasty. This is postoperative day #1 and patient is seen and evaluated at bedside with Dr. Harpreet Garces. Patient states that she would like to stay one more day in the hospital to work with physical therapy. Objective - Vital Signs Vital signs: Vital Signs Temp 99.0 F 03/29/23 07:29 Pulse 88 03/29/23 07:29 Resp 17 03/29/23 07:29 BP 136/76 03/29/23 07:29 Pulse Ox 92 L 03/29/23 07:29 FiO2 Intake & Output 03/28/23 03/29/23 03/29/23 18:59 06:59 18:59 Intake Total 1101 Output Total 30 Balance 1071 Weight 102.7 kg Intake: IV 1101 Output: Estimated Blood Loss 30 Other: # Voids 0 2 # Bowel Movements 0 - Exam Vital signs are stable. Patient is in no acute distress and is alert and oriented 3. Calf is soft and nontender to palpation. Dressing is clean, dry, and intact. Patient has full foot and ankle motion without pain or difficulty. Sensation intact. Neurovascular status and circulatory status are intact. Assessment and Plan (1) Osteoarthritis of right knee Current Visit: Yes Status: Acute Code(s): M17.11 - UNILATERAL PRIMARY OSTEOARTHRITIS, RIGHT KNEE SNOMED Code(s): 902320943520703 (2) Status post total right knee replacement Current Visit: Yes Status: Acute Code(s): Z96.651 - PRESENCE OF RIGHT ARTIFICIAL KNEE JOINT SNOMED Code(s): 6109005942763 Plan: #1 Continue with routine postoperative care and pain control, leave dressing in place for seven days. #2 Resume Eliquis. #3 Physical therapy and CPM today. #4 Appreciate input from medicine. #5 Anticipate discharge home with home care likely tomorrow.
[2023-03-29 09:54] LABS: HCT 36.2 % (34.0-46.0); HGB 11.6 gm/dL (11.4-16.0); Hypochromasia Slight; MCH 31.4 pg (25.0-35.0); MCHC 32.1 g/dL (31.0-37.0); MCV 97.8 fL (80.0-100.0); Platelet Count 159 k/uL (150-450); RDW 14.1 % (11.5-15.5)
[2023-03-29 10:09] LABS: African American GFR (CKD) 85 (>60 ml/min/1.73 sqM); Anion Gap 7 mmol/L; Blood Urea Nitrogen 12 mg/dL (7-17); Calcium 9.5 mg/dL (8.4-10.2); Carbon Dioxide 29 mmol/L (22-30); Chloride 101 mmol/L (98-107); Glucose 115 mg/dL (74-99); Non-African American GFR(CKD) 74 (>60 ml/min/1.73 sqM); Potassium 3.6 mmol/L (3.5-5.1); Sodium 137 mmol/L (137-145)
[2023-03-29 11:14] LABS: Basophils # (M) 0.08 k/uL (0-0.2); Eosinophils # (M) 0.08 k/uL (0-0.7); Lymphocytes # (M) 1.76 k/uL (1.0-4.8); Monocytes # (M) 2.24 k/uL (0-1.0); Neutrophils # (M) 3.84 k/uL (1.3-7.7); Neutrophils % (M) 48 %; Nucleated Red Blood Cells 0 /100 WBC (0-0); Total Cells Counted 100
--- NOTE | 2023-03-29 12:54 | P.PN ---
Subjective Progress Note Date: 03/29/23 73-year-old lady with past medical history significant for pulmonary embolism, hypertension, factor V Leyden, diverticulosis, degenerative disease of joint was admitted for right knee surgery Patient is seen as a consultation postoperatively. Postoperatively pain under control, medically stable Objective - Vital Signs Vital signs: Vital Signs Temp 99.0 F 03/29/23 07:29 Pulse 88 03/29/23 07:29 Resp 17 03/29/23 08:37 BP 136/76 03/29/23 07:29 Pulse Ox 92 L 03/29/23 07:29 FiO2 Intake & Output 03/28/23 03/29/23 03/29/23 18:59 06:59 18:59 Intake Total 1101 Output Total 30 Balance 1071 Weight 102.7 kg Intake: IV 1101 Output: Estimated Blood Loss 30 Other: # Voids 0 2 # Bowel Movements 0 - Exam REVIEW OF SYSTEMS: Right knee pain CONSTITUTIONAL: No fever, no malaise, no fatigue. HEENT: No recent visual problems or hearing problems. Denied any sore throat. CARDIOVASCULAR: No chest pain, orthopnea, PND, no palpitations, no syncope. PULMONARY: No shortness of breath, no cough, no hemoptysis. GASTROINTESTINAL: No diarrhea, no nausea, no vomiting, no abdominal pain. NEUROLOGICAL: No headaches, no weakness, no numbness. HEMATOLOGICAL: Denies any bleeding or petechiae. GENITOURINARY: Denies any burning micturition, frequency, or urgency. MUSCULOSKELETAL/RHEUMATOLOGICAL: Complains of right knee pain ENDOCRINE: Denies any polyuria or polydipsia. GENERAL: The patient is alert and oriented x3, not in any acute distress. Well developed, well nourished. HEENT: Pupils are round and equally reacting to light. EOMI. No scleral icterus. No conjunctival pallor. Normocephalic, atraumatic. No pharyngeal erythema. No thyromegaly. CARDIOVASCULAR: S1 and S2 present. No murmurs, rubs, or gallops. PULMONARY: Chest is clear to auscultation, no wheezing or crackles. ABDOMEN: Soft, nontender, nondistended, normoactive bowel sounds. No palpable organomegaly. MUSCULOSKELETAL: Status post right knee surgery, knee bandage EXTREMITIES: No cyanosis, clubbing, or pedal edema. NEUROLOGICAL: Gross neurological examination did not reveal any focal deficits. SKIN: No rashes. - Labs CBC & Chem 7: 03/29/23 09:31 03/29/23 09:31 Labs: Abnormal Lab Results - Last 24 Hours (Table) 03/29/23 03/29/23 Range/Units 09:31 09:31 RBC 3.70 L (3.80-5.40) m/uL Monocytes # (Manual) 2.24 H (0-1.0) k/uL Glucose 115 H (74-99) mg/dL Assessment and Plan Assessment: Assessment and plan * Status post right total knee arthroplasty secondary to severe osteoarthritis of right knee POD 1 * History of pulmonary embolism * Hypertension * Dyslipidemia * In regards to postoperative care, continue postoperative pain management, DVT prophylaxis per primary team * In regards to history of pulmonary embolism continue patient on ELIQUIS 5mg BID * Regards to hypertension continue patient on lisinopril * Patient will need physical therapy occupational therapy evaluation, primary team to coordinate discharge planning
[2023-03-29] MEDS: SODIUM CHLORIDE 0.9% 1,000 ML IV SCH (15:27)
[2023-03-29] MEDS: SENNOSIDES-DOCUSATE SODIUM 1 EACH TAB PO SCH (21:41)
[2023-03-30] MEDS: SODIUM CHLORIDE 0.9% 1,000 ML IV SCH (05:20)
[2023-03-30] MEDS: LACTATED RINGERS 1,000 ML IV SCH (06:18)
--- NOTE | 2023-03-30 07:44 | P.DS ---
Providers Date of admission: 03/29/23 08:23 Expected date of discharge: 03/30/23 Attending physician: Harpreet Garces Consults: 03/28/23 07:17 Consult Physician Routine Consulting Provider: Aundrea Dimas Consult Reason/Comments: medical management Do you want consulting provider notified?: Yes Primary care physician: Olga Nathaly - Discharge Diagnosis(es) (1) Osteoarthritis of right knee Current Visit: Yes Status: Acute (2) Status post total right knee replacement Current Visit: Yes Status: Acute Hospital Course: This is a 73-year-old female who was last seen with complaint of continued right knee pain. The patient has a known history of degenerative arthritis of the right knee and presents to discuss surgical options. After discussion and consideration the patient elects to proceed with total right knee arthroplasty. The patient is seen preoperatively by her primary care physician and cleared for surgery. The patient is admitted to [facility] for total right knee arthroplasty. The procedures performed without complication or sequelae. Patient is doing well postoperatively. Vital signs are stable at discharge. Labs are stable at discharge. the patient is ambulating well with walker with minimal assistance. The patient is discharged to home on postop day #2 pending medical clearance. Please see orders and refer to the med rec for accurate list of medications. Patient Condition at Discharge: Stable Plan - Discharge Summary Discharge Rx Participant: No New Discharge Prescriptions: New HYDROcodone/APAP 7.5-325MG [[place]anton 7.5-325] 1 - 2 tab PO Q6H PRN #32 tab PRN Reason: Pain Sennosides [Senokot] 2 tab PO DAILY PRN #60 tablet PRN Reason: Constipation hydrOXYzine pamoate [Vistaril] 25 mg PO Q4-6H #30 capsule No Action Apixaban [Eliquis] 5 mg PO BID allopurinoL [Zyloprim] 100 mg PO DAILY Furosemide [Lasix] 20 mg PO DAILY Sennosides [Senna] 8.6 mg PO BID Pravastatin Sodium [Pravachol] 40 mg PO DAILY Pregabalin [Lyrica] 75 mg PO BID #6 cap buPROPion HCL [buPROPion HCL SR] 200 mg PO BID lisinopriL [Prinivil] 10 mg PO DAILY Magnesium 400 mg PO DAILY Clotrimazole/Betameth Cream [Lotrisone] 1 applic TOPICAL BID Ferrous Sulfate [Iron (65 MG Elemental)] 325 mg PO DAILY Cyanocobalamin (Vitamin B-12) [Vitamin B-12] 1,000 mcg PO DAILY Cholecalciferol [Vitamin D3 (125 Mcg = 5000 Iu)] 125 mcg PO DAILY Acetaminophen Tab [Tylenol] 650 mg PO Q6HR PRN tab PRN Reason: Fever And/ Or Pain clonazePAM [KlonoPIN] 0.25 mg PO BID Discharge Medication List Apixaban [Eliquis] 5 mg PO BID 07/29/20 [History] allopurinoL [Zyloprim] 100 mg PO DAILY 07/29/20 [History] Furosemide [Lasix] 20 mg PO DAILY 08/26/21 [History] Sennosides [Senna] 8.6 mg PO BID 09/18/21 [History] buPROPion HCL [buPROPion HCL SR] 200 mg PO BID 09/18/21 [History] lisinopriL [Prinivil] 10 mg PO DAILY 09/18/21 [History] Magnesium 400 mg PO DAILY 12/02/21 [History] Pravastatin Sodium [Pravachol] 40 mg PO DAILY 12/02/21 [History] Clotrimazole/Betameth Cream [Lotrisone] 1 applic TOPICAL BID 03/30/22 [History] Cyanocobalamin (Vitamin B-12) [Vitamin B-12] 1,000 mcg PO DAILY 11/18/22 [History] Ferrous Sulfate [Iron (65 MG Elemental)] 325 mg PO DAILY 11/18/22 [History] Cholecalciferol [Vitamin D3 (125 Mcg = 5000 Iu)] 125 mcg PO DAILY 01/08/23 [History] Acetaminophen Tab [Tylenol] 650 mg PO Q6HR PRN tab 01/11/23 [Rx] Pregabalin [Lyrica] 75 mg PO BID #6 cap 01/11/23 [Rx] clonazePAM [KlonoPIN] 0.25 mg PO BID 02/04/23 [History] HYDROcodone/APAP 7.5-325MG [Canton 7.5-325] 1 - 2 tab PO Q6H PRN #32 tab 03/28/23 [Rx] Sennosides [Senokot] 2 tab PO DAILY PRN #60 tablet 03/28/23 [Rx] hydrOXYzine pamoate [Vistaril] 25 mg PO Q4-6H #30 capsule 03/30/23 [Rx] Follow up Appointment(s)/Referral(s): Olga Andersen MD [Primary Care Provider] - [address] [facility],Equ[facility] [NON-STAFF] - As Needed (*Please call [facility] once home to arrange delivery of the Continuous Passive Motion (CPM) machine. ) [facility] [NON-STAFF] - 1-2 Days ([facility] will call you to schedule your in home physical therapy visits. ) Harpreet Garces DO [Doctor of Osteopathic Medicine] - 04/08/23 2:30 pm (With Alyssia) Activity/Diet/Wound Care/Special Instructions: Weightbearing as tolerated with a walker. CPM 5-6h daily as tolerated. Leave dressing intact. Dressing may be removed by home care nurse or by patient in 7 days. Then change dressing twice daily until follow up. May shower with initial dressing intact and after removal. If dressing become saturated, please remove. Recommend use of compression stockings daily until follow up to help prevent swelling and blood clots. May remove at night before sleeping. Please resume Eliquis. Please follow up with [facility] and call with any questions or concerns, .
[2023-03-30] MEDS: FUROSEMIDE 20 MG TAB PO SCH (07:57)
[2023-03-30] MEDS: APIXABAN 5 MG TAB PO SCH (07:58)
[2023-03-30] MEDS: buPROPion SR 100 MG TABLET.ER PO SCH (07:58)
[2023-03-30] MEDS: PREGABALIN 75 MG CAP PO SCH (07:58)
[2023-03-30] MEDS: allopurinoL 100 MG TAB PO SCH (07:58)
[2023-03-30] MEDS: CYANOCOBALAMIN 500 MCG TAB PO SCH (07:58)
[2023-03-30] MEDS: lisinopriL 10 MG TAB PO SCH (07:59)
[2023-03-30] MEDS: FERROUS SULFATE 325 MG TAB PO SCH (07:59)
[2023-03-30] MEDS: PRAVASTATIN SODIUM 20 MG TAB PO SCH (07:59)
[2023-03-30] MEDS: HYDROcodone/APAP 7.5-325MG 1 EACH TAB PO PRN ×2 (08:00→13:01)
[2023-03-30] MEDS: clonazePAM 0.5 MG TAB PO SCH (08:02)
[2023-03-30 08:39] VITALS: BP 163/89; PULSE 93; RESP 19; TEMP 98.5
[2023-03-30 09:27] LABS: African American GFR (CKD) >90 (>60 ml/min/1.73 sqM); Anion Gap 5 mmol/L; Blood Urea Nitrogen 9 mg/dL (7-17); Carbon Dioxide 29 mmol/L (22-30); Chloride 102 mmol/L (98-107); Glucose 95 mg/dL (74-99); Non-African American GFR(CKD) 88 (>60 ml/min/1.73 sqM); Potassium 3.4 mmol/L (3.5-5.1); Sodium 136 mmol/L (137-145)
[2023-03-30] MEDS ORDERED: POTASSIUM CHLORIDE ER 20 MEQ TAB.ER PO STA (09:36)
[2023-03-30 09:52] LABS: HCT 33.3 % (34.0-46.0); HGB 10.7 gm/dL (11.4-16.0); MCH 30.6 pg (25.0-35.0); MCHC 32.1 g/dL (31.0-37.0); MCV 95.3 fL (80.0-100.0); Mean Platelet Volume 8.2; Platelet Count 132 k/uL (150-450); RDW 14.2 % (11.5-15.5); WBC 6.1 k/uL (3.8-10.6)
--- NOTE | 2023-03-30 12:51 | P.PN ---
Subjective Progress Note Date: 03/30/23 73-year-old lady with past medical history significant for pulmonary embolism, hypertension, factor V Leyden, diverticulosis, degenerative disease of joint was admitted for right knee surgery Patient is seen as a consultation postoperatively. Postoperatively pain under control, medically stable Objective - Vital Signs Vital signs: Vital Signs Temp 98.5 F 03/30/23 07:06 Pulse 93 03/30/23 07:06 Resp 19 03/30/23 07:06 BP 163/89 03/30/23 07:06 Pulse Ox 95 03/30/23 07:06 FiO2 Intake & Output 03/29/23 03/30/23 03/30/23 18:59 06:59 18:59 Intake Total 200 Balance 200 Intake: Oral 200 Other: Voiding Method Toilet Diaper # Voids 3 1 # Bowel Movements 0 - Exam REVIEW OF SYSTEMS: Right knee pain CONSTITUTIONAL: No fever, no malaise, no fatigue. HEENT: No recent visual problems or hearing problems. Denied any sore throat. CARDIOVASCULAR: No chest pain, orthopnea, PND, no palpitations, no syncope. PULMONARY: No shortness of breath, no cough, no hemoptysis. GASTROINTESTINAL: No diarrhea, no nausea, no vomiting, no abdominal pain. NEUROLOGICAL: No headaches, no weakness, no numbness. HEMATOLOGICAL: Denies any bleeding or petechiae. GENITOURINARY: Denies any burning micturition, frequency, or urgency. MUSCULOSKELETAL/RHEUMATOLOGICAL: Complains of right knee pain, IMPROVED ENDOCRINE: Denies any polyuria or polydipsia. GENERAL: The patient is alert and oriented x3, not in any acute distress. Well developed, well nourished. HEENT: Pupils are round and equally reacting to light. EOMI. No scleral icterus. No conjunctival pallor. Normocephalic, atraumatic. No pharyngeal erythema. No thyromegaly. CARDIOVASCULAR: S1 and S2 present. No murmurs, rubs, or gallops. PULMONARY: Chest is clear to auscultation, no wheezing or crackles. ABDOMEN: Soft, nontender, nondistended, normoactive bowel sounds. No palpable organomegaly. MUSCULOSKELETAL: Status post right knee surgery, knee bandage EXTREMITIES: No cyanosis, clubbing, or pedal edema. NEUROLOGICAL: Gross neurological examination did not reveal any focal deficits. SKIN: No rashes. - Labs CBC & Chem 7: 03/30/23 08:58 03/30/23 08:58 Labs: Abnormal Lab Results - Last 24 Hours (Table) 03/30/23 03/30/23 Range/Units 08:58 08:58 RBC 3.50 L (3.80-5.40) m/uL Hgb 10.7 L (11.4-16.0) gm/dL Hct 33.3 L (34.0-46.0) % Plt Count 132 L (150-450) k/uL Sodium 136 L (137-145) mmol/L Potassium 3.4 L (3.5-5.1) mmol/L Assessment and Plan Assessment: Assessment and plan * Status post right total knee arthroplasty secondary to severe osteoarthritis of right knee POD 1 * History of pulmonary embolism * Hypertension * Dyslipidemia * In regards to postoperative care, continue postoperative pain management, DVT prophylaxis per primary team * In regards to history of pulmonary embolism continue patient on ELIQUIS 5mg BID * Regards to hypertension continue patient on lisinopril * Patient will need physical therapy occupational therapy evaluation, primary team to coordinate discharge planning
== END 2023-03-30 13:19 ==
LOC: OR 05:35 → 4SSUR 09:06 → OR 03-29 08:23
PROVIDERS: ADMIT Orthopaedic Surgery; ATTEND Orthopaedic Surgery
DX: M17.11 Unilateral primary osteoarthritis, right knee (principal); M21.061 Valgus deformity, not elsewhere classified, right knee; D68.51 Activated protein C resistance; I10 Essential (primary) hypertension; E78.5 Hyperlipidemia, unspecified; K57.90 Diverticulosis of intestine, part unspecified, without perforation or abscess without bleeding; K59.00 Constipation, unspecified; M10.9 Gout, unspecified; L30.9 Dermatitis, unspecified; R32 Unspecified urinary incontinence; F32.A Depression, unspecified; F41.9 Anxiety disorder, unspecified; Z79.01 Long term (current) use of anticoagulants; Z79.899 Other long term (current) drug therapy; Z88.3 Allergy status to other anti-infective agents; Z88.8 Allergy status to other drugs, medicaments and biological substances; Z86.711 Personal history of pulmonary embolism; Z86.16 Personal history of COVID-19; Z90.710 Acquired absence of both cervix and uterus; Z98.84 Bariatric surgery status; Z90.49 Acquired absence of other specified parts of digestive tract; Z87.828 Personal history of other (healed) physical injury and trauma; Z98.49 Cataract extraction status, unspecified eye; Z90.79 Acquired absence of other genital organ(s); Z90.722 Acquired absence of ovaries, bilateral; Z98.890 Other specified postprocedural states; Z82.49 Family history of ischemic heart disease and other diseases of the circulatory system; Z83.3 Family history of diabetes mellitus
CPT/HCPCS: 97116; 97530; 97161; 64999; 64448; 80048 ×2; 85025; 85027; 73560; 27447; G0378 ×2; C1713; C1776; C1751; J2250; J1100; S0106 ×3; J0690 ×2; J3010; J2795; J2370; J2704; J1170

== ENCOUNTER → 2023-06-03 | Outpatient (CLI) | payer MEDICARE, OTHER ==
--- NOTE | 2023-06-05 16:16 | MR ---
EXAMINATION TYPE: MR lumbar spine wo con DATE OF EXAM: 06/03/2023 10:43 AM COMPARISON: 02/04/2023 CT. CLINICAL INDICATION: Female, 73 years old with history of M47.816; Low back pain, weakness TECHNIQUE: Multi planar, multi sequence imaging was performed utilizing: T1-weighted, T2-weighted, a nd turbo inversion recovery imaging of the lumbar spine. IV Contrast: None. FINDINGS: Alignment: The lumbar vertebral bodies have preserved heights with straightening of the alignment the re is ankylosis of L4 and L5 vertebral bodies. Grade 1 anterolisthesis of L3 on L4. Cord: The conus medullaris and the distal spinal cord appear unremarkable with regards to their signa l intensity and morphology. Bones/Discs: Multilevel disc degeneration changes are seen throughout the spine. There is facet joint arthropathy, disc space narrowing present. There is superior endplate compression deformity to the L 2 vertebral body with less than 25% height loss. No significant retropulsion. Modic endplate changes are seen throughout the lower spine predominantly L2-L5. Increased inversion recovery signal at the l evel of L1-L2 facet joints in the adjacent soft tissues. T12-L1: No evidence of significant spinal canal stenosis or neural foraminal stenosis. L1-L2: Disc bulge and facet joint arthropathy result in moderate spinal canal and moderate severe rich ateral neural foraminal stenosis. L2-L3: Disc bulge and facet joint arthropathy result in moderate spinal canal and mild bilateral neur al foraminal stenosis. L3-L4: Disc uncovering from grade 1 anterolisthesis and facet joint arthropathy with moderate spinal canal stenosis and mild to moderate bilateral neural foraminal stenosis. L4-L5: Ankylosis of the disc space. No evidence of significant spinal canal stenosis. Facet joint art hropathy mild bilateral neural foraminal stenosis. L5-S1: The disc is rounded posterior morphology without significant spinal canal stenosis. Facet join t arthropathy with mild neural foraminal stenosis. No significant spinal canal or neural foraminal stenosis in the remainder of the visualized levels. Other findings: Extrarenal pelves bilaterally to the kidneys. IMPRESSION: 1. 2. There is active inflammation around the L1-L2 facet joints and surrounding soft tissues. This could possibly correlate with patient's pain. 2. Disc degeneration changes with moderate spinal canal stenosis at L1-L2, L2-L3 and L3-L4. There is bunching of the cauda equina. Neural foraminal stenosis worse at these levels with at least moderate to severe bilateral neural foraminal stenosis. 3. L2 vertebral body compression fracture with less than 25% height loss with at least moderate spin al canal stenosis secondary to disc degeneration.
== END | disposition home or self-care (01) ==
LOC: RADMRIMAIN 09:30
PROVIDERS: ATTEND Orthopaedic Surgery Orthopaedic Surgery of the Spine
DX: S32.020A Wedge compression fracture of second lumbar vertebra, initial encounter for closed fracture (principal); M47.816 Spondylosis without myelopathy or radiculopathy, lumbar region; M43.16 Spondylolisthesis, lumbar region; M62.830 Muscle spasm of back; M51.36 Other intervertebral disc degeneration, lumbar region; M99.73 Connective tissue and disc stenosis of intervertebral foramina of lumbar region; R26.9 Unspecified abnormalities of gait and mobility
CPT/HCPCS: 72148

== ENCOUNTER → 2023-07-11 | Outpatient (CLI) | payer MEDICARE, OTHER ==
--- NOTE | 2023-07-11 14:19 | FL ---
EXAMINATION TYPE: FL barium enema DATE OF EXAM: 07/11/2023 CLINICAL HISTORY: Rule out colovesical fistula. TECHNIQUE: Dual contrast barium enema was performed as contrast was instilled from rectum to the cecu m with reflux into a normal-appearing terminal ileum and appendix. COMPARISON: None. FINDINGS: Stretching Press Operator view of the abdomen shows overall non-obstructive bowel gas pattern. There is extens chito change of sigmoid diverticulosis. There is circular muscle hypertrophy with mild stricture noted within the proximal sigmoid colon and distal sigmoid colon. I do not see evidence for extravasation o f contrast or contrast extending to the urinary bladder. No annular constricting lesion or fungating mass identified. Appendix was filled and appeared normal. The terminal ileum was refluxed and appear s within normal limits. IMPRESSION: 1. Extensive diverticular disease involving the sigmoid colon with areas of circular muscle hypertrop hy and mild stricture formation. I do not see evidence for active diverticulitis or colovesical fistu la at this time.
== END | disposition home or self-care (01) ==
LOC: RADFLMAIN 08:55
PROVIDERS: ATTEND Family Medicine
DX: K57.30 Diverticulosis of large intestine without perforation or abscess without bleeding (principal); M62.89 Other specified disorders of muscle; N39.0 Urinary tract infection, site not specified
CPT/HCPCS: 74270

== ENCOUNTER → 2023-07-28 | Outpatient (CLI) | payer MEDICARE, OTHER ==
--- NOTE | 2023-07-28 15:46 | US ---
EXAMINATION TYPE: US kidneys/renal and bladder DATE OF EXAM: 07/28/2023 COMPARISON: 02/07/2023 CLINICAL INDICATION: Female, 73 years old with history of UTI N39.0; Left flank pain EXAM MEASUREMENTS: Right Kidney: 8.6 x 5.2 x 4.8 cm Left Kidney: 9.4 x 4.9 x 5.4 cm No hydronephrosis on either side. Right Kidney: measures small in size, 1.6 x 3.4 x 1.7cm parapelvic cyst (versus 1.9 x 3.2 x 1.8 cm, previously) Left Kidney: wnl Bladder: wnl Bilateral Jets seen: yes IMPRESSION: 1. No hydronephrosis. 2. Redemonstrated elongated parapelvic cyst mid right kidney measuring up to 3.4 cm, not significantl y changed.
== END | disposition home or self-care (01) ==
LOC: RADUSWWP 07:15
PROVIDERS: ATTEND Family Medicine
DX: N39.0 Urinary tract infection, site not specified (principal); N28.1 Cyst of kidney, acquired
CPT/HCPCS: 76770

== ENCOUNTER → 2023-07-28 | Outpatient (CLI) | payer MEDICARE, OTHER ==
[2023-07-28 09:30] LABS: INR 0.9 (<1.2); Partial Thromboplastin Time 25.4 sec (22.0-30.0); Prothrombin Time 9.9 sec (9.0-12.0)
--- NOTE | 2023-07-28 15:51 | XR ---
EXAMINATION TYPE: XR chest 2V DATE OF EXAM: 07/28/2023 COMPARISON: 01/08/2023 HISTORY: 73-year-old female presurgical testing TECHNIQUE: Frontal and lateral views FINDINGS: Suspect sequela of old injury of the right distal clavicle and AC joint. Heart normal size. Aortopulm onary vasculature within normal limits. Hazy densities related to overlying soft tissue. No consolida tion or pleural effusion. IMPRESSION: No acute cardiopulmonary process.
[2023-07-28 16:42] LABS: ALT 14 U/L (8-44); AST 11 U/L (13-35); Albumin 4.4 d/dL (3.8-4.9); Albumin/Globulin Ratio 1.83 Ratio (1.60-3.17); Alkaline Phosphatase 91 U/L (41-126); BUN/Creat Ratio 21.62 Ratio (12.00-20.00); Blood Urea Nitrogen 17.3 mg/dL (9.0-27.0); Calcium 10.6 mg/dL (8.7-10.3); Carbon Dioxide 22.7 mmol/L (21.6-31.8); Chloride 102 mmol/L (96-109); Globulin 2.4 d/dL (1.6-3.3); Glucose 85 mg/dL (70-110); Potassium 3.7 mmol/L (3.5-5.5); Sodium 140 mmol/L (135-145); Total Bilirubin 0.3 mg/dL (0.3-1.2); Total Protein 6.8 d/dL (6.2-8.2)
[2023-07-28 17:05] LABS: HCT 39.2 % (37.2-46.3); HGB 12.4 d/dL (12.0-15.0); MCH 28.8 pg (27.0-32.0); MCHC 31.6 d/dL (32.0-37.0); MCV 91.2 FL (80.0-97.0); Mean Platelet Volume 10.9 FL (9.5-12.2); NRBC Per 100 WBC 0 X 10*3/uL (0.00-0.01); Platelet Count 183 X 10*3/uL (140-440); RDW 13.9 % (11.5-14.5); WBC 5.02 X 10*3/uL (4.50-10.00)
[2023-07-28 17:08] LABS: Appearance,Urine Clear (Clear); Bilirubin,Urine Negative (Negative); Blood,Urine Negative (Negative); Color,Urine Yellow (Yellow); Ketones,Urine Negative (Negative); Nitrite,Urine Negative (Negative); PH, Urine 6.5; Specific Gravity,Urine 1.007 (1.001-1.030); Urobilinogen,Urine 0.2 E.U./DL
== END | disposition home or self-care (01) ==
LOC: LABPAT 07:19
PROVIDERS: ATTEND Orthopaedic Surgery
DX: Z01.818 Encounter for other preprocedural examination (principal); M17.12 Unilateral primary osteoarthritis, left knee
CPT/HCPCS: 71046; 80053; 81003; 85027; 85610; 85730; 87070

== ENCOUNTER 2023-08-16 09:09 | Inpatient (IN) | payer MEDICARE, OTHER ==
[2023-08-11 12:00] VITALS: BMI 32.8
[~2023-08-16 09:09] MED LIST changes: +DEXAMETHASONE SOD PHOSPHATE 4 MG/ML 1 ML VIAL IV ONE; +HYDROmorphone 0.5 MG/0.5 ML SYRINGE IVP PRN; +LIDOCAINE 1% (10MG/ML) FOR IV START INTRADERMA PRN; +TRANEXAMIC 1,000 MG/100ML-NACL 1,000 MG in SALINE 1 100ML.BAG IVPB PRN; -TRANEXAMIC ACID IN NACL,ISO-OS 1,000 MG in SALINE 1 100ML.BAG IVPB PRN; +droPERidol 5 MG/2 ML VIAL IVP ONE
[2023-08-16] MEDS: LACTATED RINGERS 1,000 ML IV SCH (09:23)
[2023-08-16] MEDS ORDERED: MIDAZOLAM 2 MG/2 ML VIAL IVP ONE (10:12)
--- NOTE | 2023-08-16 10:47 | P.ANPRN ---
Procedure Note - Anesthesia - Nerve Block Performed Left Adductor Canal Infusion Time Out Performed: Yes (1011) Date of Procedure: 08/16/23 Procedure Start Time: 10:12 Procedure Stop Time: 10:17 Location of Patient: PreOp Indication: Acute Post-Operative Pain, Requested by Surgeon Specifically requested for management of pain by DrMatt: Harpreet Garces Sedation Type: Sedate with meaningful contact maintained Preparation: Sterile Prep Position: Supine Catheter Depth at Skin (cm): 6 Catheter: Indwelling Needle Types: Pajunk Needle Gauge: 18 Ultrasound used to visualize needle placement: Yes Ultrasound used to observe medication spread: Yes Injectate: 0.5% Ropivacaine (see comment for volume) (15cc + 10cc nacl pf) Blood Aspirated: No Pain Paresthesia on Injection Noted: No Resistance on Injection: Normal Image Stored and Saved: Yes Events: Uneventful and Well Tolerated
--- NOTE | 2023-08-16 10:48 | P.ANPRN ---
Procedure Note - Anesthesia - Nerve Block Performed Left iPack Single Time Out Performed: Yes (1011) Date of Procedure: 08/16/23 Procedure Start Time: Procedure Stop Time: Location of Patient: PreOp Indication: Acute Post-Operative Pain, Requested by Surgeon Specifically requested for management of pain by DrMatt: Harpreet Garces Sedation Type: Sedate with meaningful contact maintained Preparation: Sterile Prep Position: Supine Catheter: None Needle Types: Pajunk Needle Gauge: 21 Ultrasound used to visualize needle placement: Yes Ultrasound used to observe medication spread: Yes Injectate: 0.5% Ropivacaine (see comment for volume) (15cc + 10cc nacl pf) Blood Aspirated: No Pain Paresthesia on Injection Noted: No Resistance on Injection: Normal Image Stored and Saved: Yes Events: Uneventful and Well Tolerated
[2023-08-16] MEDS ORDERED: HYDROmorphone 0.5 MG/0.5 ML SYRINGE IVP ONE ×4 (10:50→13:33)
[2023-08-16] MEDS ORDERED: fentaNYL (PF) 50 MCG/ML 2 ML AMP ONE (10:57)
[2023-08-16] MEDS ORDERED: TRANEXAMIC 1,000 MG/100ML-NACL PREMIX BAG ONE (10:57)
[2023-08-16] MEDS ORDERED: SODIUM CHLORIDE 0.9% (PF) 10 ML VIAL ONE (10:57)
[2023-08-16] MEDS ORDERED: ROPIVACAINE 5 MG/ML 30 ML VIAL ONE (10:57)
[2023-08-16] MEDS ORDERED: hydrALAZINE HCL 20 MG/ML 1 ML VIAL ONE (10:57)
[2023-08-16] MEDS ORDERED: HYDROmorphone (PF) 1 MG/ML ONE (10:57)
[2023-08-16] MEDS ORDERED: LIDOCAINE 1% INJ 10MG/ML (20 ML MDV) ONE (10:57)
[2023-08-16] MEDS ORDERED: SUCCINYLCHOLINE CHLORIDE 200 MG/10 ML VIAL IV ONE (10:57)
[2023-08-16] MEDS ORDERED: PROPOFOL 10 MG/ML 20 ML VIAL IV ONE (10:57)
[2023-08-16] MEDS ORDERED: ceFAZolin 1,000 MG in SODIUM CHLORIDE 0.9% 1,000 ML IRRIGATION ONE (11:02)
--- NOTE | 2023-08-16 12:22 | P.OP ---
Date of Procedure: 08/16/23 Preoperative Diagnosis: Severe osteoarthritis left knee Postoperative Diagnosis: Severe osteoarthritis left knee Procedure(s) Performed: Left total knee arthroplasty Implants: [employer] Nephew Journey II CR Oxinium Bi-cruciate stabilized femoral component size 6, left [employer] Journey nonporous tibial baseplate size 5, left [employer] Journey II, constrained articular insert, size 9 mm, Size 5-6, left [employer] Journey Dai II resurfacing patellar component, oval, 32 mm All components were cemented using Palacos R bone cement The articulation is Oxinium on polyethylene Anesthesia: JOSUE Surgeon: Harpreet Garces Property Claim Rep #1: Alyssia Sparks Estimated Blood Loss (ml): 50 Pathology: none sent Condition: stable Disposition: PACU Indications for Procedure: The patient's knee is end-stage, and conservative management has failed. The operation of knee replacement has been discussed at length in the office, as well as potential risks and complications. These are inclusive of, but not limited to: Infection, bleeding, scarring, discomfort, stiffness, blood vessel and nerve damage, need for further surgery, failure to relieve symptoms, persistence, recurrence, or worsening of problems, loosening, dislocation, wear, blood clot, pulmonary embolism, , gait dysfunction, stiffness, and other risks as discussed in the office. Patient elects to proceed and the consent form has been signed. Operative Findings: The operative findings are consistent with severe osteoarthritis of the left knee Description of Procedure: The patient was seen in the preoperative area, the consent was reviewed and the operative site was marked with a skin marker. The patient verified the procedure and the operative site. An adductor canal pain catheter and an iPACK block were placed by anesthesia in the preoperative area. The patient was then brought to the operating room and positioned on the operating room table in the supine position. Preoperative antibiotics and a gram of tranexamic acid were given intravenously. A general anesthetic was administered by the anesthesia department. Care was taken to make sure that all pressure points were adequately padded. A tourniquet was placed on the upper thigh and the lower extremity was prepped with ChloraPrep and draped in usual sterile fashion. A universal time-out was then performed which confirmed the patient's name, surgical site, ALLERGIES, and consent. The lower extremity was then exsanguinated and tourniquet was inflated to 250 mmHg. A standard anterior midline approach to the knee was performed. The skin and subcutaneous tissue were sharply dissected down to the patellar tendon. A medial parapatellar arthrotomy was then performed. The knee was then extended, the patellar was everted, and the knee was flexed. The infra-patellar fat pad was removed in order to enhance exposure. The anterior horns of both menisci were excised, and a release was performed to the posterior medial aspect of the knee. On gross visual inspection, there was complete loss of articular cartilage in the medial and patellofemoral joint spaces. There was also significant cartilage damage in the lateral compartment. There were multiple periarticular osteophytes globally about the knee which were then removed with a Ronguer. The femoral canal was then opened with the 9.5 mm intramedullary drill. The 8 mm intramedullary lucita was then inserted into the femoral canal with the distal femoral cutting guide set for 5 of valgus. The distal femoral cutting block was then pinned in place. The intramedullary lucita was then removed, and the distal femur was then cut. The cutting block was then removed and the cut was checked for symmetry. The resected bone was then measured to c onfirm the appropriate distal femoral resection. Next, the sizing guide was then placed and set for 3 external rotation based off of the epicondylar axis and Enterprise's line. Pins were then placed and the drill holes, and the femur was sized with the sizing stylus. The pins were then removed, and the sizing guide was then removed. The spikes of the appropriate size femoral block was then placed into the predrilled holes, and malleted into place. Two 45 mm pins were then placed into the fixation holes on the cutting block. An jagjit wing was then used to ensure there would be no notching with the anterior cut. The anterior condyles were cut without notching. The anterior chord cut was then performed, followed by the posterior cut, posterior chamfer cut, and the anterior chamfer cut. The collateral ligaments were protected during the entire process. The cutting block was then removed. Any remaining bone and osteophytes were removed from the femur with a Ronguer. Attention was then directed to the tibia. The remaining ACL was removed with a Ronguer, and the tibia was then gently subluxed forward with a large bent knee retractor. Any remaining menisci were excised. The posterior lateral corner was cauterized in order to coagulate the lateral geniculate artery. The extra medullary tibial cutting guide was then placed, set for the appropriate rotation, slope, and depth of resection. The proximal tibia cutting guide was then pinned in place. Proximal tibia was then cut and sized. A curved osteotome was then used to remove any posterior osteophytes from the distal femur. The femoral trial was placed. The box drill guide was then used to prepare the femoral box. The femoral box trial was then placed. The tibial trial was placed with the appropriate-sized insert. The knee was able to fully extend and flex to 130 and was stable throughout all range of motion. The knee was then extended and the patella was everted. Patella was then measured, and then using an osteotomy guide, the patella was cut at the appropriate level. The patellar component was sized. The patellar drill guide was placed and the patella was drilled. The patella trial was then placed. The knee was then taken through range of motion with the patella trial and the patella tracked normally using the no thumbs technique. The patella trial was then removed. The knee was then flexed and lug holes were drilled through the femoral trial and the femoral trial was then removed. The tibial was then re-exposed, and the tibial broach guide was then pinned in place after it was set for the appropriate rotation to allow for the most coverage without overhang. The tibia was then reamed and broached. The femoral canal was plugged with autologous bone. The cut surfaces of bone were then irrigated with pulsatile lavage. The knee was also irrigated with Irrisept solution. The components were then opened, the cement was mixed. Cement was placed on the backside of the femoral, tibial, and patellar components. Cement was then applied to the tibial surface and pressurized into the surface using finger pressurization technique. The tibial component was then applied and excess cement was removed after it was impacted securely noted to be flush with the cut surface. In similar fashion, the cement was applied to the cut femoral surface, pressurized and using finger pressurization the component was impacted in place. Excess cement was removed. The polyethylene spacer was then implanted and locked into position. Patellar component was then applied in a similar technique and the patellar clamp was used to hold patella in place while the cement hardened. The knee was held in full extension while the cement hardened. Once the cement had fully hardened, the knee was reinspected. Any other cement extrusion was removed the final range of motion testing showed range of motion from 0-130 with excellent stability, both medial and laterally and appropriate alignment of the leg. Patella tracked normally. After the cemented hardened, the tourniquet was released and hemostasis was obtained. A second gram of transexamic acid was given intravenously. The knee was again irrigated. The knee was again taken through range of motion and found to be stable throughout all range of motion of 0-130, and the patella tracked normally. The fascia was then closed with 0 Vicryl followed by #2 strata fix suture. The subcutaneous tissue was closed with 3-0 Vicryl and 3-0 strata fix. Exofin glue was used for the skin and placed with the knee in flexion. After the glue had dried, and Optafoam silver impregnated dressing was applied. A lightly compressive dressing was applied using web roll and Marcus wrap. Patient was then transferred to the stretcher and taken to recovery room in stable condition. Sponge and needle counts were correct. The curriculum assistant CURTIS Espinoza was required due the complexity surgery and the need for a skilled surgical elastic knitter. She assisted in positioning, draping, retraction, and closure of the wound.
[2023-08-16] MEDS ORDERED: LACTATED RINGERS 1,000 ML IV ONE (12:34)
[2023-08-16] MEDS ORDERED: bisacodyL 10 MG SUPP RECTAL PRN (12:51)
[2023-08-16] MEDS ORDERED: HYDROmorphone 0.5 MG/0.5 ML SYRINGE IVP PRN ×2 (12:51)
[2023-08-16] MEDS ORDERED: NA PHOS,M-B/NA PHOS,DI-BA 133 ML ENEMA RECTAL PRN (12:51)
[2023-08-16] MEDS ORDERED: NALOXONE 0.4 MG/ML 1 ML VIAL IV PRN ×2 (12:51→12:58)
[2023-08-16] MEDS ORDERED: MAGNESIUM HYDROXIDE 2,400 MG/30 ML CUP PO PRN (12:51)
[2023-08-16] MEDS ORDERED: HYDROcodone/APAP 7.5-325MG 1 EACH TAB PO PRN (12:53)
[2023-08-16] MEDS ORDERED: ROPIVACAINE 0.2%-NS ON-Q PUMP 2 MG/ML EACH MISCELLANE PRN (13:11)
--- NOTE | 2023-08-16 13:30 | XR ---
EXAMINATION TYPE: XR knee limited LT DATE OF EXAM: 08/16/2023 CLINICAL HISTORY: Postoperative evaluation Two views of the left knee are submitted. Identified are changes of total knee arthroplasty with fem oral and tibial components appearing well seated. Postsurgical soft tissue changes are noted. Align ment is anatomic.
[2023-08-16] MEDS: HYDROmorphone 0.5 MG/0.5 ML SYRINGE IVP PRN ×2 (17:02→23:10)
[2023-08-16] MEDS: SODIUM CHLORIDE 0.9% 1,000 ML IV SCH (18:34)
[2023-08-16] MEDS: HYDROcodone/APAP 7.5-325MG 1 EACH TAB PO PRN (20:19)
[2023-08-16] MEDS: PREGABALIN 75 MG CAP PO SCH (20:20)
[2023-08-16] MEDS: buPROPion SR 100 MG TABLET.ER PO SCH (20:20)
[2023-08-16] MEDS: SENNOSIDES-DOCUSATE SODIUM 1 EACH TAB PO SCH (20:20)
[2023-08-16] MEDS: clonazePAM 0.5 MG TAB PO SCH (20:20)
[2023-08-17] MEDS: LACTATED RINGERS 1,000 ML IV SCH ×2 (00:24→21:11)
[2023-08-17] MEDS: HYDROcodone/APAP 7.5-325MG 1 EACH TAB PO PRN (03:58)
[2023-08-17] MEDS: SODIUM CHLORIDE 0.9% 1,000 ML IV SCH ×2 (04:00→20:03)
--- NOTE | 2023-08-17 06:01 | P.PN ---
Progress Note - Text Progress Note Date: 08/17/23 POD 1 left TKR with adductor canal catheter. Patient reports pain is "horrendous". After further examination her pain is in lateral thigh and lateral knee. very mild tenderness in saphenous distribution. Patient reports she has not been able to ambulate yet, she uses a walker at home. pump is running at 8cc/hr. I believe it should be continued along with PRN medications. Avelina Tapia MD
[2023-08-17] MEDS ORDERED: HYDROcodone/APAP 10-325MG 1 EACH TAB PO PRN (07:58)
[2023-08-17] MEDS: APIXABAN 5 MG TAB PO SCH ×2 (08:08→20:15)
[2023-08-17] MEDS: PREGABALIN 75 MG CAP PO SCH ×2 (08:08→20:15)
[2023-08-17] MEDS: HYDROmorphone 0.5 MG/0.5 ML SYRINGE IVP PRN ×2 (08:08→14:36)
[2023-08-17] MEDS: buPROPion SR 100 MG TABLET.ER PO SCH ×2 (08:08→20:15)
[2023-08-17 10:21] LABS: HCT 36.7 % (37.2-46.3); HGB 11.8 d/dL (12.0-15.0); MCH 29.5 pg (27.0-32.0); MCHC 32.2 d/dL (32.0-37.0); MCV 91.8 FL (80.0-97.0); Mean Platelet Volume 10.6 FL (9.5-12.2); NRBC Per 100 WBC 0 X 10*3/uL (0.00-0.01); Platelet Count 160 X 10*3/uL (140-440); RDW 14.2 % (11.5-14.5); WBC 10.96 X 10*3/uL (4.50-10.00)
[2023-08-17] MEDS: HYDROcodone/APAP 10-325MG 1 EACH TAB PO PRN ×2 (10:29→16:33)
[2023-08-17] MEDS ORDERED: ACETAMINOPHEN TAB 325 MG TAB PO PRN (11:35)
--- NOTE | 2023-08-17 11:39 | P.CONS ---
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 Patient was last seen in summerMarch 2023 when she had right knee surgery done and did fairly well postprocedure * Patient is status post left knee arthroplasty, seen postoperative day one * Postoperatively patient does complain of left knee pain, x-ray left knee shows changes of left knee arthroplasty with components well-seated * Postprocedure blood work obtained showed WBC 10.96 hemoglobin 11.8 platelet count of 160 REVIEW OF SYSTEMS: Left knee pain CONSTITUTIONAL: No fever, no malaise, no fatigue. HEENT: No recent visual problems or hearing problems. Denied any sore throat. CARDIOVASCULAR: No chest pain, orthopnea, PND, no palpitations, no syncope. PULMONARY: No shortness of breath, no cough, no hemoptysis. GASTROINTESTINAL: No diarrhea, no nausea, no vomiting, no abdominal pain. NEUROLOGICAL: No headaches, no weakness, no numbness. HEMATOLOGICAL: Denies any bleeding or petechiae. GENITOURINARY: Denies any burning micturition, frequency, or urgency. MUSCULOSKELETAL/RHEUMATOLOGICAL: Denies any joint pain, swelling, or any muscle pain. ENDOCRINE: Denies any polyuria or polydipsia. PHYSICAL EXAMINATION: GENERAL: The patient is alert and oriented x3, not in any acute distress. Well developed, well nourished. HEENT: Pupils are round and equally reacting to light. EOMI. No scleral icterus. No conjunctival pallor. Normocephalic, atraumatic. No pharyngeal erythema. No thyromegaly. CARDIOVASCULAR: S1 and S2 present. No murmurs, rubs, or gallops. PULMONARY: Chest is clear to auscultation, no wheezing or crackles. ABDOMEN: Soft, nontender, nondistended, normoactive bowel sounds. No palpable organomegaly. MUSCULOSKELETAL: Left knee bandage, range of motion limited EXTREMITIES: No cyanosis, clubbing, or pedal edema. NEUROLOGICAL: Gross neurological examination did not reveal any focal deficits. SKIN: No rashes. Past Medical History Past Medical History: Blood Disorder, Hearing Disorder / Deafness, Hypertension, Musculoskeletal Disorder, Pulmonary Embolus (PE), Skin Disorder, Sleep Apnea/CPAP/BIPAP Additional Past Medical History / Comment(s): DDD, chronic back pain. Hx PE September 2019. Hx Gout. Leiden Factor V. Bilateral foot/leg edema. Constipation, diverticulosis. Eczema. Severe urinary incontinece-uses brief. Hx COVID 09/18/21. Hard of hearing. History of Any Multi-Drug Resistant Organisms: None Reported Past Surgical History: Bariatric Surgery, Cholecystectomy, Hernia Repair, Hysterectomy, Joint Replacement, Tonsillectomy Additional Past Surgical History / Comment(s): Cataract surgery, gastric stapling(1979), colonoscopy, DEDRA/BSO with umbilical hernia repair, right knee replacement. Past Anesthesia/Blood Transfusion Reactions: No Reported Reaction Additional Past Anesthesia/Blood Transfusion Reaction / Comm: No blood transfusion history. Past Psychological History: Anxiety, Depression Smoking Status: Never smoker Past Alcohol Use History: None Reported Past Drug Use History: None Reported - Past Family History Mother Family Medical History: Myocardial Infarction (PA) Father Family Medical History: Myocardial Infarction (PA) Brother(s) Family Medical History: Deep Vein Thrombosis (DVT), Myocardial Infarction (PA), Pulmonary Embolus Medications and Allergies Home Medications Medication Instructions Recorded Confirmed Type Apixaban [Eliquis] 5 mg PO BID 07/29/20 08/16/23 History allopurinoL [Zyloprim] 100 mg PO DAILY 07/29/20 08/16/23 History Furosemide [Lasix] 20 mg PO DAILY 08/26/21 08/16/23 History Sennosides [Senna] 8.6 mg PO BID 09/18/21 08/16/23 History buPROPion HCL [buPROPion HCL SR] 200 mg PO BID 09/18/21 08/16/23 History lisinopriL [Prinivil] 10 mg PO QAM 09/18/21 08/16/23 History Magnesium 400 mg PO DAILY 12/02/21 08/16/23 History Pravastatin Sodium [Pravachol] 40 mg PO DAILY 12/02/21 08/16/23 History Cyanocobalamin (Vitamin B-12) 1,000 mcg PO DAILY 11/18/22 08/16/23 History [Vitamin B-12] Ferrous Sulfate [Iron (65 MG 325 mg PO DAILY 11/18/22 08/16/23 History Elemental)] Cholecalciferol [Vitamin D3 (125 125 mcg PO DAILY 01/08/23 08/16/23 History Mcg = 5000 Iu)] Acetaminophen Tab [Tylenol] 650 mg PO Q6HR PRN tab 01/11/23 08/16/23 Rx Pregabalin [Lyrica] 75 mg PO BID #6 cap 01/11/23 08/16/23 Rx clonazePAM [KlonoPIN] 0.25 mg PO HS 02/04/23 08/16/23 History HYDROcodone/APAP 7.5-325MG [[place] 1 - 2 tab PO Q6H PRN #32 tab 08/16/23 Rx 7.5-325] Sennosides [Senokot] 2 tab PO DAILY PRN #60 tablet 08/16/23 Rx Allergies Allergy/AdvReac Type Severity Reaction Status Date / Time itraconazole Allergy Unknown Verified 08/16/23 10:36 ondansetron [From Zofran] AdvReac severe Verified 08/16/23 10:36 burning @IV site, itching Physical Exam Vitals: Vital Signs Temp Pulse Resp BP BP Pulse Ox 08/17/23 07:45 75 18 08/17/23 07:39 98.2 F 75 18 152/69 96 08/17/23 02:00 98.2 F 81 135/76 95 08/16/23 20:00 98.6 F 92 112/66 91 L 08/16/23 16:42 97.6 F 75 16 121/67 95 08/16/23 15:30 97 16 112/83 98 08/16/23 15:00 96 16 107/83 98 08/16/23 14:45 94 16 132/82 98 08/16/23 14:30 92 16 107/81 98 08/16/23 14:15 92 16 146/79 98 08/16/23 13:59 88 16 140/81 98 08/16/23 13:44 83 16 159/76 99 08/16/23 13:29 88 16 160/76 100 08/16/23 13:14 87 16 165/85 100 08/16/23 12:59 90 16 165/93 99 08/16/23 12:44 88 16 160/71 94 L Intake and Output 08/16/23 08/17/23 08/17/23 22:59 06:59 14:59 Intake Total 1030 Balance 1030 Intake: IV 550 Oral 480 Other: Voiding Method Toilet Toilet # Voids 1 1 Weight 95.25 kg Results CBC & Chem 7: 08/17/23 04:56 Labs: Abnormal Lab Results - Last 24 Hours (Table) 08/17/23 Range/Units 04:56 WBC 10.96 H (4.50-10.00) X 10*3/uL RBC 4.00 L (4.10-5.20) X 10*6/uL Hgb 11.8 L (12.0-15.0) d/dL Hct 36.7 L (37.2-46.3) % Assessment and Plan Assessment: Assessment and plan Status post left knee total arthroplasty History of pulmonary embolism History of factor V Leyden Hypertension Hyperuricemia * In regards to post procedure left knee arthroplasty continue with pain control, physical therapy occupational therapy evaluation * In regards to history of pulmonary embolism continue patient on Eliquis * In regards to history of hypertension continue lisinopril, Lasix monitor for hypotension while receiving pain medications * In regards to history of hyperuricemia continue patient on allopurinol
--- NOTE | 2023-08-17 12:06 | P.PN ---
Subjective Progress Note Date: 08/17/23 This is a 73-year-old female who is status post left total knee arthroplasty. This is postoperative day #1 and patient is seen and evaluated at bedside with Dr. Harpreet Garces. Patient states that the knee is very sore today, but she was able to work with physical therapy today. Patient denies any fever/chills, numbness, weakness, tingling, abdominal pain, shortness of breath or chest pain. Objective - Vital Signs Vital signs: Vital Signs Temp 98.2 F 08/17/23 07:39 Pulse 75 08/17/23 07:45 Resp 18 08/17/23 07:45 BP 152/69 08/17/23 07:39 Pulse Ox 96 08/17/23 07:39 FiO2 Intake & Output 08/16/23 08/17/23 08/17/23 18:59 06:59 18:59 Intake Total 2081 Output Total 50 Balance 2030 Weight 95.25 kg Intake: IV 1601 Oral 480 Output: Estimated Blood Loss 50 Other: Voiding Method Toilet Toilet # Voids 0 1 - Exam Vital signs are stable. Patient is in no acute distress and is alert and oriented 3. Calf is soft and nontender to palpation. Dressing is clean, dry, and intact. Patient has full foot and ankle motion without pain or difficulty. Sensation intact. Neurovascular status and circulatory status are intact. - Labs CBC & Chem 7: 08/17/23 04:56 Labs: Abnormal Lab Results - Last 24 Hours (Table) 08/17/23 Range/Units 04:56 WBC 10.96 H (4.50-10.00) X 10*3/uL RBC 4.00 L (4.10-5.20) X 10*6/uL Hgb 11.8 L (12.0-15.0) d/dL Hct 36.7 L (37.2-46.3) % Assessment and Plan (1) Osteoarthritis of left knee Current Visit: Yes Status: Acute Code(s): M17.12 - UNILATERAL PRIMARY OSTEOARTHRITIS, LEFT KNEE SNOMED Code(s): 775871703900702 (2) S/P total knee arthroplasty Current Visit: Yes Status: Acute Code(s): Z96.659 - PRESENCE OF UNSPECIFIED ARTIFICIAL KNEE JOINT SNOMED Code(s): 8493633522780 Plan: #1 Continue with routine postoperative care and pain control, leave dressing in place for 7 days. #2 Anticoagulation with Eliquis. #3 Physical therapy today. #4 Appreciate input from internal medicine. #5 Anticipate discharge home with home care in the next 24-48 hours.
[2023-08-17] MEDS: FUROSEMIDE 20 MG TAB PO SCH (13:25)
[2023-08-17] MEDS: MAGNESIUM OXIDE 400 MG TAB PO SCH (13:25)
[2023-08-17] MEDS: FERROUS SULFATE 325 MG TAB PO SCH (13:26)
[2023-08-17] MEDS: allopurinoL 100 MG TAB PO SCH (13:26)
[2023-08-17] MEDS: CHOLECALCIFEROL 125 MCG (5000 IU) TABLET PO SCH (13:26)
[2023-08-17] MEDS: CYANOCOBALAMIN 500 MCG TAB PO SCH (13:26)
[2023-08-17] MEDS: lisinopriL 10 MG TAB PO SCH (13:26)
[2023-08-17 15:31] LABS: Basophils # (A) 0.02 X 10*3/uL (0.00-0.10); Basophils % (A) 0.2 %; Eosinophils # (A) 0 X 10*3/uL (0.04-0.35); Eosinophils % (A) 0 %; Lymphocytes # (A) 1.59 X 10*3/uL (0.90-5.00); Lymphocytes % (A) 14.5 %; Monocytes % (A) 38.3 %; Neutrophils # (A) 5.04 X 10*3/uL (1.80-7.70); RBC Morphology Normal (Normal)
[2023-08-17] MEDS: clonazePAM 0.5 MG TAB PO SCH (20:15)
[2023-08-17] MEDS: SENNOSIDES-DOCUSATE SODIUM 1 EACH TAB PO SCH (20:15)
[2023-08-18] MEDS: HYDROcodone/APAP 10-325MG 1 EACH TAB PO PRN ×4 (00:27→18:53)
[2023-08-18] MEDS: HYDROmorphone 0.5 MG/0.5 ML SYRINGE IVP PRN (05:28)
[2023-08-18] MEDS: SODIUM CHLORIDE 0.9% 1,000 ML IV SCH (05:32)
[2023-08-18] MEDS: CYANOCOBALAMIN 500 MCG TAB PO SCH (08:14)
[2023-08-18] MEDS: allopurinoL 100 MG TAB PO SCH (08:14)
[2023-08-18] MEDS: CHOLECALCIFEROL 125 MCG (5000 IU) TABLET PO SCH (08:15)
[2023-08-18] MEDS: PRAVASTATIN SODIUM 40 MG TAB PO SCH (08:15)
[2023-08-18] MEDS: APIXABAN 5 MG TAB PO SCH ×2 (08:15→20:21)
[2023-08-18] MEDS: lisinopriL 10 MG TAB PO SCH (08:15)
[2023-08-18] MEDS: FUROSEMIDE 20 MG TAB PO SCH (08:15)
[2023-08-18] MEDS: MAGNESIUM OXIDE 400 MG TAB PO SCH (08:16)
[2023-08-18] MEDS: PREGABALIN 75 MG CAP PO SCH ×2 (08:16→20:21)
[2023-08-18] MEDS: FERROUS SULFATE 325 MG TAB PO SCH (08:16)
[2023-08-18] MEDS: buPROPion SR 100 MG TABLET.ER PO SCH ×2 (08:20→20:20)
--- NOTE | 2023-08-18 12:29 | P.PN ---
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 Patient was last seen in summerMarch 2023 when she had right knee surgery done and did fairly well postprocedure * Patient is status post left knee arthroplasty, seen postoperative day one * Postoperatively patient does complain of left knee pain, x-ray left knee shows changes of left knee arthroplasty with components well-seated * Postprocedure blood work obtained showed WBC 10.96 hemoglobin 11.8 platelet count of 160 * 08/18/23: Vision seen and evaluated bedside, patient alert and at 4, left knee discomfort has improved. CBC and serum chemistry pending patient remains afebrile REVIEW OF SYSTEMS: Left knee pain improved CONSTITUTIONAL: No fever, no malaise, no fatigue. HEENT: No recent visual problems or hearing problems. Denied any sore throat. CARDIOVASCULAR: No chest pain, orthopnea, PND, no palpitations, no syncope. PULMONARY: No shortness of breath, no cough, no hemoptysis. GASTROINTESTINAL: No diarrhea, no nausea, no vomiting, no abdominal pain. NEUROLOGICAL: No headaches, no weakness, no numbness. HEMATOLOGICAL: Denies any bleeding or petechiae. GENITOURINARY: Denies any burning micturition, frequency, or urgency. MUSCULOSKELETAL/RHEUMATOLOGICAL: Denies any joint pain, swelling, or any muscle pain. ENDOCRINE: Denies any polyuria or polydipsia. PHYSICAL EXAMINATION: GENERAL: The patient is alert and oriented x3, not in any acute distress. Well developed, well nourished. HEENT: Pupils are round and equally reacting to light. EOMI. CARDIOVASCULAR: S1 and S2 present. No murmurs, rubs, or gallops. PULMONARY: Chest is clear to auscultation, no wheezing or crackles. ABDOMEN: Soft, nontender, nondistended, normoactive bowel sounds. No palpable organomegaly. MUSCULOSKELETAL: Left knee bandage, range of motion limited EXTREMITIES: No cyanosis, clubbing, or pedal edema. NEUROLOGICAL: Gross neurological examination did not reveal any focal deficits. SKIN: No rashes. Objective - Vital Signs Vital signs: Vital Signs Temp 98.7 F 08/18/23 07:29 Pulse 90 08/18/23 07:29 Resp 18 08/18/23 07:29 BP 162/77 08/18/23 07:29 Pulse Ox 94 L 08/18/23 07:29 FiO2 Intake & Output 08/17/23 08/18/23 08/18/23 18:59 06:59 18:59 Other: Voiding Method Toilet Toilet # Voids 1 1 1 - Labs CBC & Chem 7: 08/17/23 04:56 Labs: Abnormal Lab Results - Last 24 Hours (Table) 08/17/23 Range/Units 04:56 Monocytes # 4.20 H (0.20-1.00) X 10*3/uL Eosinophils # 0 L (0.04-0.35) X 10*3/uL Assessment and Plan Assessment: Assessment and plan Status post left knee total arthroplasty pod 1 History of pulmonary embolism History of factor V Leyden Hypertension Hyperuricemia * In regards to post procedure left knee arthroplasty continue with pain control, physical therapy occupational therapy evaluation * In regards to history of pulmonary embolism continue patient on Eliquis * In regards to history of hypertension continue lisinopril, Lasix monitor for hypotension while receiving pain medications * In regards to history of hyperuricemia continue patient on allopurinol * Internal medicine team will continue to follow along
[2023-08-18] MEDS: hydrOXYzine pamoate 25 MG CAP PO PRN ×2 (13:56→18:54)
--- NOTE | 2023-08-18 14:26 | P.PN ---
Subjective Progress Note Date: 08/18/23 This is a 73-year-old female who is status post left total knee arthroplasty. This is postoperative day #2 and patient is seen and evaluated at bedside today. Patient states that she is very anxious today. Per nursing and physical therapy, the patient had a lot of difficulty working with them today. Patient has needed a lot of assistance with transfers. Patient's is present at bedside today. Patient denies any fever/chills, numbness, weakness, tingling, abdominal pain, shortness of breath or chest pain. Objective - Vital Signs Vital signs: Vital Signs Temp 98.7 F 08/18/23 07:29 Pulse 90 08/18/23 07:29 Resp 18 08/18/23 07:29 BP 162/77 08/18/23 07:29 Pulse Ox 94 L 08/18/23 07:29 FiO2 Intake & Output 08/17/23 08/18/23 08/18/23 18:59 06:59 18:59 Other: Voiding Method Toilet Toilet # Voids 1 1 1 - Exam Vital signs are stable. Patient is in no acute distress and is alert and oriented 3. Patient is very anxious today. Calf is soft and nontender to palpation. Dressing is clean, dry, and intact. Patient has full foot and ankle motion without pain or difficulty. Sensation intact. Neurovascular status and circulatory status are intact. - Labs CBC & Chem 7: 08/17/23 04:56 Labs: Abnormal Lab Results - Last 24 Hours (Table) 08/17/23 Range/Units 04:56 Monocytes # 4.20 H (0.20-1.00) X 10*3/uL Eosinophils # 0 L (0.04-0.35) X 10*3/uL Assessment and Plan (1) Osteoarthritis of left knee Current Visit: Yes Status: Acute Code(s): M17.12 - UNILATERAL PRIMARY OSTEOARTHRITIS, LEFT KNEE SNOMED Code(s): 031040250111293 (2) S/P total knee arthroplasty Current Visit: Yes Status: Acute Code(s): Z96.659 - PRESENCE OF UNSPECIFIED ARTIFICIAL KNEE JOINT SNOMED Code(s): 7628911197649 Plan: #1 Continue with routine postoperative care and pain control, leave dressing in place for 7 days. #2 Anticoagulation with Eliquis. #3 Physical therapy today. #4 Appreciate input from internal medicine. #5 Patient would benefit from ECF placement. Anticipate discharge in the next 24-48 hours.
--- NOTE | 2023-08-18 18:04 | XR ---
EXAMINATION TYPE: XR femur LT DATE OF EXAM: 08/18/2023 5:47 PM CLINICAL INDICATION:Female, 73 years old with history of pain, s/p l tka; [facility] COMPARISON: 08/16/2023 TECHNIQUE: The left femur was examined in Frontal and lateral projections. FINDINGS: No evidence of acute osseous pathology, joint dislocation, or soft tissue swelling Post surgical changes with total knee arthroplasty. Hardware appears intact. No evidence for fracture . Mild degeneration changes with osteophyte formation. IMPRESSION: Post total knee arthroplasty changes with hardware intact. No evidence for hardware failure. No evide nce for fracture.
[2023-08-18] MEDS: SENNOSIDES-DOCUSATE SODIUM 1 EACH TAB PO SCH (20:21)
[2023-08-18] MEDS: clonazePAM 0.5 MG TAB PO SCH (20:21)
[2023-08-19] MEDS: SODIUM CHLORIDE 0.9% 1,000 ML IV SCH ×3 (03:19→22:48)
[2023-08-19] MEDS: hydrOXYzine pamoate 25 MG CAP PO PRN ×3 (05:35→17:27)
[2023-08-19] MEDS: HYDROcodone/APAP 10-325MG 1 EACH TAB PO PRN ×3 (05:35→17:27)
[2023-08-19] MEDS: LACTATED RINGERS 1,000 ML IV SCH ×2 (07:17→22:48)
[2023-08-19] MEDS: CYANOCOBALAMIN 500 MCG TAB PO SCH (09:05)
[2023-08-19] MEDS: APIXABAN 5 MG TAB PO SCH ×2 (09:06→20:04)
[2023-08-19] MEDS: MAGNESIUM OXIDE 400 MG TAB PO SCH (09:06)
[2023-08-19] MEDS: FUROSEMIDE 20 MG TAB PO SCH (09:06)
[2023-08-19] MEDS: PRAVASTATIN SODIUM 40 MG TAB PO SCH (09:06)
[2023-08-19] MEDS: FERROUS SULFATE 325 MG TAB PO SCH (09:06)
[2023-08-19] MEDS: lisinopriL 10 MG TAB PO SCH (09:06)
[2023-08-19] MEDS: allopurinoL 100 MG TAB PO SCH (09:06)
[2023-08-19] MEDS: buPROPion SR 100 MG TABLET.ER PO SCH ×2 (09:32→20:05)
[2023-08-19] MEDS: CHOLECALCIFEROL 125 MCG (5000 IU) TABLET PO SCH (09:32)
[2023-08-19] MEDS: PREGABALIN 75 MG CAP PO SCH ×2 (09:32→20:04)
[2023-08-19 11:15] LABS: Basophils # (A) 0.01 X 10*3/uL (0.00-0.10); Basophils % (A) 0.1 %; Eosinophils # (A) 0.03 X 10*3/uL (0.04-0.35); Eosinophils % (A) 0.4 %; HCT 36.3 % (37.2-46.3); HGB 11.6 d/dL (12.0-15.0); Lymphocytes # (A) 1.54 X 10*3/uL (0.90-5.00); Lymphocytes % (A) 19.5 %; MCH 29.3 pg (27.0-32.0); MCV 91.7 FL (80.0-97.0); Mean Platelet Volume 10.6 FL (9.5-12.2); Monocytes # (A) 1.87 X 10*3/uL (0.20-1.00); Monocytes % (A) 23.7 %; NRBC Per 100 WBC 0 X 10*3/uL (0.00-0.01); Neutrophils # (A) 4.37 X 10*3/uL (1.80-7.70); Neutrophils % (A) 55.4 %; Platelet Count 151 X 10*3/uL (140-440); RBC 3.96 X 10*6/uL (4.10-5.20); RDW 14.3 % (11.5-14.5); WBC 7.89 X 10*3/uL (4.50-10.00)
[2023-08-19 11:29] LABS: BUN/Creat Ratio 13.88 Ratio (12.00-20.00); Blood Urea Nitrogen 11.1 mg/dL (9.0-27.0); Calcium 9.7 mg/dL (8.7-10.3); Carbon Dioxide 33.5 mmol/L (21.6-31.8); Chloride 104 mmol/L (96-109); Glucose 95 mg/dL (70-110); Potassium 3.9 mmol/L (3.5-5.5); Sodium 141 mmol/L (135-145)
--- NOTE | 2023-08-19 14:50 | P.PN ---
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 Patient was last seen in summerMarch 2023 when she had right knee surgery done and did fairly well pos tprocedure * Postoperatively patient does complain of left knee pain, x-ray left knee shows changes of left knee arthroplasty with components well-seated * Postprocedure blood work obtained showed WBC 10.96 hemoglobin 11.8 platelet count of 160 08/19. Patient seen and examined. Vital signs stable with temperature of 98.5, heart rate 80, respirations 16, blood pressure 167/78. States left knee pain has improved. at bedside. REVIEW OF SYSTEMS: CONSTITUTIONAL: No fever, no malaise,. CARDIOVASCULAR: No chest pain, no palpitations, no syncope. PULMONARY: No shortness of breath, no cough, GASTROINTESTINAL: No diarrhea, no nausea, no vomiting, no abdominal pain. NEUROLOGICAL: No headaches, no weakness, PHYSICAL EXAMINATION: GENERAL: The patient is alert and oriented x3, not in any acute distress. Well developed, well nourished. HEENT: Pupils are round and equally reacting to light. EOMI. No scleral icterus. No conjunctival pallor. Normocephalic, atraumatic. No pharyngeal erythema. No thyromegaly. CARDIOVASCULAR: S1 and S2 present. No murmurs, rubs, or gallops. PULMONARY: Chest is clear to auscultation, no wheezing or crackles. ABDOMEN: Soft, nontender, nondistended, normoactive bowel sounds. No palpable organomegaly. MUSCULOSKELETAL: Knee surgical incision seen EXTREMITIES: No cyanosis, clubbing, or pedal edema. NEUROLOGICAL: Gross neurological examination did not reveal any focal deficits. SKIN: No rashes. Assessment and plan Status post left knee total arthroplasty History of pulmonary embolism History of factor V Leyden Hypertension Hyperuricemia * In regards to left knee arthroplasty continue with pain control, physical therapy occupational therapy evaluation * In regards to history of pulmonary embolism continue patient on Eliquis * In regards to history of hypertension continue lisinopril, Lasix monitor for h ypotension while receiving pain medications * In regards to history of hyperuricemia continue patient on allopurinol Patient medical stable for discharge Labs and medication were reviewed.. Continue same treatment. Continue with symptomatic treatment. Resume home medication. Monitor labs and vitals. DVT and GI prophylaxis. Further recommendations as per clinical course of the patient Dictation was produced using [employer] dictation software. please excuse any grammatical, word or spelling errors. Objective - Vital Signs Vital signs: Vital Signs Temp 98.5 F 08/19/23 07:13 Pulse 80 08/19/23 07:13 Resp 16 08/19/23 07:13 BP 167/78 08/19/23 07:13 Pulse Ox 95 08/19/23 07:13 FiO2 Intake & Output 08/18/23 08/19/23 08/19/23 18:59 06:59 18:59 Other: # Voids 2 1 1 - Labs CBC & Chem 7: 08/19/23 05:36 08/19/23 05:36
[2023-08-19] MEDS: SENNOSIDES-DOCUSATE SODIUM 1 EACH TAB PO SCH (20:04)
[2023-08-19] MEDS: clonazePAM 0.5 MG TAB PO SCH (20:05)
[2023-08-20] MEDS: hydrOXYzine pamoate 25 MG CAP PO PRN ×4 (02:52→20:32)
[2023-08-20] MEDS: HYDROcodone/APAP 10-325MG 1 EACH TAB PO PRN ×4 (02:52→20:33)
--- NOTE | 2023-08-20 08:52 | P.DS ---
Providers Date of admission: 08/17/23 14:17 Expected date of discharge: 08/20/23 Attending physician: Harpreet Garces Consults: 08/16/23 12:51 Consult Physician Routine Consulting Provider: Aundrea Dimas Consult Reason/Comments: medical management Do you want consulting provider notified?: Yes Primary care physician: Olga Nathaly - Discharge Diagnosis(es) (1) Left knee pain Current Visit: Yes Status: Acute (2) History of pulmonary embolism Current Visit: Yes Status: Acute (3) Factor V Leiden Current Visit: Yes Status: Acute (4) Osteoarthritis of left knee Current Visit: Yes Status: Acute (5) S/P total knee arthroplasty Current Visit: Yes Status: Acute (6) Hypertension Current Visit: Yes Status: Acute Hospital Course: This is a pleasant 73-year-old female who presented with severe left knee osteoarthritis who failed outpatient conservative therapy. She was admitted for a left total knee arthroplasty. The patient tolerated the procedure had been aggressing slowly initially. She does feel she has continued to make daily improvement. She's been using a walker to aid in ambulation. She is happy with her progress over the past couple days. She feel she is ready for discharge today. Condition on day of discharge stable. Patient will be discharged to rehab today. Patient was cleared preoperatively for surgery by . Patient currently denies any nausea, vomiting, fever, or chills. Patient is eating and voiding freely without difficulty. Patient may shower Optifoam dressing intact. Patient may remove Optifoam dressing in 7 days and shower without a dressing at that time. Dressing changes twice a day may be performed as needed following removal of the surgical dressing. Patient may weight-bear as tolerated on the left lower extremity with a walker. She may utilize CPM 5-6 hours daily as tolerated. Patient is encouraged to continue using compression stockings daily which may be removed prior to sleeping. MAPS were previously reviewed. An "Opiod Start Talking" Form has been signed and placed in the patient's chart. A prescription has been written for hydrocodone 10 mg/325 mg, 1 tab every 6 hours as needed for acute pain, dispensed #30, Senokot, and Vistaril. Prescription is her place in the patient's chart for discharge to a rehabilitation facility. Patient will continue with anticoagulation with Eliquis as previously prescribed. Patient's other medical diagnoses include history of pulmonary embolism, hypertension, and factor V Leiden. We'll plan to have medicine completely medical record prior to discharge. Prescription has been written, signed, and provided to nursing for a CPM for the patient at rehab. Physical Exam Total Knee Arthroplasty: Status post surgical day number 4 Patient is awake, alert, and oriented 3 Vital signs stable Good chest excursion with deep inspiration and expiration Abdomen soft nontender No signs or symptoms of DVT; no calf pain Dressing over the left anterior knee is clean, dry, and intact; no erythema, purulence, or signs of infection Patient has full foot and ankle motion without difficulty bilateral lower extremities Dorsiflexion, plantar flexion, and extensor hallucis longus positive sustained bilaterally Neurovascular status left lower extremity intact Procedures: Left total knee arthroplasty Patient Condition at Discharge: Stable Plan - Discharge Summary Discharge Rx Participant: No New Discharge Prescriptions: New hydrOXYzine pamoate [Vistaril] 25 mg PO Q6H PRN #30 capsule PRN Reason: Pain Sennosides [Senokot] 2 tab PO DAILY PRN #60 tablet PRN Reason: Constipation HYDROcodone/APAP 10-325MG [[place] 10-325] 1 tab PO Q6H PRN #30 tab PRN Reason: Pain No Action Apixaban [Eliquis] 5 mg PO BID allopurinoL [Zyloprim] 100 mg PO DAILY Furosemide [Lasix] 20 mg PO DAILY Sennosides [Senna] 8.6 mg PO BID Pravastatin Sodium [Pravachol] 40 mg PO DAILY Pregabalin [Lyrica] 75 mg PO BID #6 cap buPROPion HCL [buPROPion HCL SR] 200 mg PO BID lisinopriL [Prinivil] 10 mg PO QAM Magnesium 400 mg PO DAILY Ferrous Sulfate [Iron (65 MG Elemental)] 325 mg PO DAILY Cyanocobalamin (Vitamin B-12) [Vitamin B-12] 1,000 mcg PO DAILY Cholecalciferol [Vitamin D3 (125 Mcg = 5000 Iu)] 125 mcg PO DAILY Acetaminophen Tab [Tylenol] 650 mg PO Q6HR PRN tab PRN Reason: Fever And/ Or Pain clonazePAM [KlonoPIN] 0.25 mg PO HS Discharge Medication List Apixaban [Eliquis] 5 mg PO BID 07/29/20 [History] allopurinoL [Zyloprim] 100 mg PO DAILY 07/29/20 [History] Furosemide [Lasix] 20 mg PO DAILY 08/26/21 [History] Sennosides [Senna] 8.6 mg PO BID 09/18/21 [History] buPROPion HCL [buPROPion HCL SR] 200 mg PO BID 09/18/21 [History] lisinopriL [Prinivil] 10 mg PO QAM 09/18/21 [History] Magnesium 400 mg PO DAILY 12/02/21 [History] Pravastatin Sodium [Pravachol] 40 mg PO DAILY 12/02/21 [History] Cyanocobalamin (Vitamin B-12) [Vitamin B-12] 1,000 mcg PO DAILY 11/18/22 [History] Ferrous Sulfate [Iron (65 MG Elemental)] 325 mg PO DAILY 11/18/22 [History] Cholecalciferol [Vitamin D3 (125 Mcg = 5000 Iu)] 125 mcg PO DAILY 01/08/23 [History] Acetaminophen Tab [Tylenol] 650 mg PO Q6HR PRN tab 01/11/23 [Rx] Pregabalin [Lyrica] 75 mg PO BID #6 cap 01/11/23 [Rx] clonazePAM [KlonoPIN] 0.25 mg PO HS 02/04/23 [History] Sennosides [Senokot] 2 tab PO DAILY PRN #60 tablet 08/16/23 [Rx] HYDROcodone/APAP 10-325MG [[place] 10-325] 1 tab PO Q6H PRN #30 tab 08/18/23 [Rx] hydrOXYzine pamoate [Vistaril] 25 mg PO Q6H PRN #30 capsule 08/18/23 [Rx] Follow up Appointment(s)/Referral(s): [facility] [NON-STAFF] - As Needed (Continuous Passive Motion knee machine) [facility], [NON-STAFF] - As Needed [facility] [NON-STAFF] - As Needed Harpreet Garces DO [Doctor of Osteopathic Medicine] - 08/31/23 2:30 pm Patient Instructions/Handouts: Knee Replacement (DC) Activity/Diet/Wound Care/Special Instructions: Weightbearing as tolerated with a walker. CPM 5-6h daily as tolerated. Leave dressing intact. Dressing may be removed by home care nurse or by patient in 7 days. Then change dressing twice daily until follow up. May shower with initial dressing intact and after removal. If dressing become saturated, please remove. Recommend use of compression stockings daily until follow up to help prevent swelling and blood clots. May remove at night before sleeping. Please resume Eliquis. Please follow up with [facility] and call with any questions or concerns, . Discharge Disposition: TRANSFER TO SNF/ECF
[2023-08-20] MEDS: MAGNESIUM OXIDE 400 MG TAB PO SCH (09:15)
[2023-08-20] MEDS: PRAVASTATIN SODIUM 40 MG TAB PO SCH (09:15)
[2023-08-20] MEDS: PREGABALIN 75 MG CAP PO SCH ×2 (09:15→20:32)
[2023-08-20] MEDS: CHOLECALCIFEROL 125 MCG (5000 IU) TABLET PO SCH (09:16)
[2023-08-20] MEDS: allopurinoL 100 MG TAB PO SCH (09:16)
[2023-08-20] MEDS: lisinopriL 10 MG TAB PO SCH (09:16)
[2023-08-20] MEDS: APIXABAN 5 MG TAB PO SCH ×2 (09:16→20:32)
[2023-08-20] MEDS: FERROUS SULFATE 325 MG TAB PO SCH (09:16)
[2023-08-20] MEDS: CYANOCOBALAMIN 500 MCG TAB PO SCH (09:16)
[2023-08-20] MEDS: buPROPion SR 100 MG TABLET.ER PO SCH ×2 (09:16→20:34)
[2023-08-20] MEDS: FUROSEMIDE 20 MG TAB PO SCH (09:16)
--- NOTE | 2023-08-20 14:27 | P.PN ---
Subjective Progress Note Date: 08/20/23 73-year-old patient with past medical history significant for pulmonary embolism, osteoarthritis, hypertension, factor V Leyden degenerative disease of joint was admitted for elective left knee surgery. Patient was last seen in summerMarch 2023 when she had right knee surgery done and did fairly well pos tprocedure * Postoperatively patient does complain of left knee pain, x-ray left knee shows changes of left knee arthroplasty with components well-seated * Postprocedure blood work obtained showed WBC 10.96 hemoglobin 11.8 platelet count of 160 08/19. Patient seen and examined. Vital signs stable with temperature of 98.5, heart rate 80, respirations 16, blood pressure 167/78. States left knee pain has improved. at bedside. 08/20. Patient seen and examined. Patient medically stable for discharge from medicine perspective REVIEW OF SYSTEMS: CONSTITUTIONAL: No fever, no malaise,. CARDIOVASCULAR: No chest pain, no palpitations, no syncope. PULMONARY: No shortness of breath, no cough, GASTROINTESTINAL: No diarrhea, no nausea, no vomiting, no abdominal pain. NEUROLOGICAL: No headaches, no weakness, PHYSICAL EXAMINATION: GENERAL: The patient is alert and oriented x3, not in any acute distress. Well developed, well nourished. HEENT: Pupils are round and equally reacting to light. EOMI. No scleral icterus. No conjunctival pallor. Normocephalic, atraumatic. No pharyngeal erythema. No thyromegaly. CARDIOVASCULAR: S1 and S2 present. No murmurs, rubs, or gallops. PULMONARY: Chest is clear to auscultation, no wheezing or crackles. ABDOMEN: Soft, nontender, nondistended, normoactive bowel sounds. No palpable organomegaly. MUSCULOSKELETAL: Knee surgical incision seen EXTREMITIES: No cyanosis, clubbing, or pedal edema. NEUROLOGICAL: Gross neurological examination did not reveal any focal deficits. SKIN: No rashes. Assessment and plan Status post left knee total arthroplasty History of pulmonary embolism History of factor V Leyden Hypertension Hyperuricemia * In regards to left knee arthroplasty continue with pain control, physical therapy occupational therapy evaluation * In regards to history of pulmonary embolism continue patient on Eliquis * In regards to history of hypertension continue lisinopril, Lasix monitor for hypotension while receiving pain medications * In regards to history of hyperuricemia continue patient on allopurinol Patient medical stable for discharge Labs and medication were reviewed.. Continue same treatment. Continue with symptomatic treatment. Resume home medication. Monitor labs and vitals. DVT and GI prophylaxis. Further recommendations as per clinical course of the patient Dictation was produced using [employer] dictation software. please excuse any grammatical, word or spelling errors. Objective - Vital Signs Vital signs: Vital Signs Temp 98.2 F 08/20/23 14:00 Pulse 82 08/20/23 14:00 Resp 18 08/20/23 14:00 BP 148/75 08/20/23 14:00 Pulse Ox 92 L 08/20/23 14:00 FiO2 Intake & Output 08/19/23 08/20/23 08/20/23 18:59 06:59 18:59 Intake Total 540 Balance 540 Intake: Oral 540 Other: Voiding Method Incontinent # Voids 2 1 1 # Bowel Movements 1 1 - Labs CBC & Chem 7: 08/19/23 05:36 08/19/23 05:36
[2023-08-20] MEDS ORDERED: allopurinoL 100 MG TAB PO STA (14:41)
[2023-08-20] MEDS: SODIUM CHLORIDE 0.9% 1,000 ML IV SCH ×2 (17:29→23:16)
[2023-08-20] MEDS: SENNOSIDES-DOCUSATE SODIUM 1 EACH TAB PO SCH (20:32)
[2023-08-20] MEDS: clonazePAM 0.5 MG TAB PO SCH (20:34)
[2023-08-20] MEDS: LACTATED RINGERS 1,000 ML IV SCH (23:16)
[2023-08-21] MEDS: hydrOXYzine pamoate 25 MG CAP PO PRN ×4 (02:43→21:54)
[2023-08-21] MEDS: HYDROcodone/APAP 10-325MG 1 EACH TAB PO PRN ×4 (02:43→21:54)
--- NOTE | 2023-08-21 09:23 | P.PN ---
Progress Note - Text Progress Note Date: 08/21/23 Orthopedics: History of present illness: This is a pleasant 73-year-old female who presented with severe left knee osteoarthritis who failed outpatient conservative therapy. She was admitted for a left total knee arthroplasty. The patient tolerated the procedure had been aggressing slowly initially. She does feel she has continued to make daily improvement. She's been using a walker to aid in ambulation. She is happy with her progress over the past couple days. She is planning for discharge yesterday to a rehabilitation facility but case management states authorization had not been received. She will continue to remain in the hospital until receiving insurance authorization. Hopefully this can be obtained tomorrow, 08/22/2023. She does not have any other complaints at the bedside. Her pain has been adequately controlled. Patient currently denies any nausea, vomiting, fever, or chills. Patient is eating and voiding freely without difficulty. Physical Exam Total Knee Arthroplasty: Status post surgical day number 5 Patient is awake, alert, and oriented 3 Vital signs stable Good chest excursion with deep inspiration and expiration Abdomen soft nontender No signs or symptoms of DVT; no calf pain Dressing over the left anterior knee is clean, dry, and intact; no erythema, purulence, or signs of infection Patient has full foot and ankle motion without difficulty bilateral lower extremities Dorsiflexion, plantar flexion, and extensor hallucis longus positive sustained bilaterally Neurovascular status left lower extremity intact Assessment: Status post left total knee arthroplasty Left knee pain Severe left knee osteoarthritis History of pulmonary embolism Hypertension Factor V Leiden Anticoagulation use with Eliquis Plan: 1. Patient may shower Optifoam dressing intact. 2. Patient may remove Optifoam dressing in 7 days and shower without a dressing at that time. 3. Dressing changes twice a day may be performed as needed following removal of the surgical dressing. 4. Patient may weight-bear as tolerated on the left lower extremity with a walker. 5. She may utilize CPM 5-6 hours daily as tolerated; Prescription has been written, signed, and provided to nursing for a CPM for the patient at rehab. 6. Patient is encouraged to continue using compression stockings daily which may be removed prior to sleeping. 7. MAPS were previously reviewed. An "Opiod Start Talking" Form has been signed and placed in the patient's chart. A prescription has been written for hydrocodone 10 mg/325 mg, 1 tab every 6 hours as needed for acute pain, dispensed #30, Senokot, and Vistaril. Prescription is her place in the patient's chart for discharge to a rehabilitation facility. 8. Patient will continue with anticoagulation with Eliquis as previously prescribed. 9. Patient may follow-up with Dr. Harpreet Garces at [facility] in 2-3 weeks following discharge.
[2023-08-21] MEDS: buPROPion SR 100 MG TABLET.ER PO SCH ×2 (10:10→20:06)
[2023-08-21] MEDS: lisinopriL 10 MG TAB PO SCH (10:11)
[2023-08-21] MEDS: FUROSEMIDE 20 MG TAB PO SCH (10:11)
[2023-08-21] MEDS: CYANOCOBALAMIN 500 MCG TAB PO SCH (10:11)
[2023-08-21] MEDS: allopurinoL 100 MG TAB PO SCH (10:11)
[2023-08-21] MEDS: APIXABAN 5 MG TAB PO SCH ×2 (10:11→20:05)
[2023-08-21] MEDS: MAGNESIUM OXIDE 400 MG TAB PO SCH (10:12)
[2023-08-21] MEDS: PREGABALIN 75 MG CAP PO SCH ×2 (10:12→20:06)
[2023-08-21] MEDS: CHOLECALCIFEROL 125 MCG (5000 IU) TABLET PO SCH (10:12)
[2023-08-21] MEDS: FERROUS SULFATE 325 MG TAB PO SCH (10:12)
[2023-08-21] MEDS: PRAVASTATIN SODIUM 40 MG TAB PO SCH (10:12)
--- NOTE | 2023-08-21 14:47 | P.PN ---
Subjective Progress Note Date: 08/21/23 73-year-old patient with past medical history significant for pulmonary embolism, osteoarthritis, hypertension, factor V Leyden degenerative disease of joint was admitted for elective left knee surgery. Patient was last seen in summerMarch 2023 when she had right knee surgery done and did fairly well pos tprocedure * Postoperatively patient does complain of left knee pain, x-ray left knee shows changes of left knee arthroplasty with components well-seated * Postprocedure blood work obtained showed WBC 10.96 hemoglobin 11.8 platelet count of 160 08/19. Patient seen and examined. Vital signs stable with temperature of 98.5, heart rate 80, respirations 16, blood pressure 167/78. States left knee pain has improved. at bedside. 08/20. Patient seen and examined. Patient medically stable for discharge from medicine perspective 08/21. Patient seen and examined. Denies any knee pain. Waiting to go to rehab, most likely tomorrow REVIEW OF SYSTEMS: CONSTITUTIONAL: No fever, no malaise,. CARDIOVASCULAR: No chest pain, no palpitations, no syncope. PULMONARY: No shortness of breath, no cough, GASTROINTESTINAL: No diarrhea, no nausea, no vomiting, no abdominal pain. NEUROLOGICAL: No headaches, no weakness, PHYSICAL EXAMINATION: GENERAL: The patient is alert and oriented x3, not in any acute distress. Well developed, well nourished. HEENT: Pupils are round and equally reacting to light. EOMI. No scleral icterus. No conjunctival pallor. Normocephalic, atraumatic. No pharyngeal erythema. No thyromegaly. CARDIOVASCULAR: S1 and S2 present. No murmurs, rubs, or gallops. PULMONARY: Chest is clear to auscultation, no wheezing or crackles. ABDOMEN: Soft, nontender, nondistended, normoactive bowel sounds. No palpable organomegaly. MUSCULOSKELETAL: Knee surgical incision seen EXTREMITIES: No cyanosis, clubbing, or pedal edema. NEUROLOGICAL: Gross neurological examination did not reveal any focal deficits. SKIN: No rashes. Assessment and plan Status post left knee total arthroplasty History of pulmonary embolism History of factor V Leyden Hypertension Hyperuricemia * In regards to left knee arthroplasty continue with pain control, physical therapy occupational therapy evaluation * In regards to history of pulmonary embolism continue patient on Eliquis * In regards to history of hypertension continue lisinopril, Lasix monitor for hypotension while receiving pain medications * In regards to history of hyperuricemia continue patient on allopurinol Patient medical stable for discharge Labs and medication were reviewed.. Continue same treatment. Continue with symptomatic treatment. Resume home medication. Monitor labs and vitals. DVT and GI prophylaxis. Further recommendations as per clinical course of the patient Dictation was produced using [employer] dictation software. please excuse any gram matical, word or spelling errors. Objective - Vital Signs Vital signs: Vital Signs Temp 98.4 F 08/21/23 14:00 Pulse 80 08/21/23 14:00 Resp 16 08/21/23 14:00 BP 147/89 08/21/23 14:00 Pulse Ox 97 08/21/23 14:00 FiO2 Intake & Output 08/20/23 08/21/23 08/21/23 18:59 06:59 18:59 Other: Voiding Method Incontinent Incontinent Diaper # Voids 1 4 3 # Bowel Movements 1 - Labs CBC & Chem 7: 08/19/23 05:36 08/19/23 05:36
[2023-08-21] MEDS: clonazePAM 0.5 MG TAB PO SCH (20:05)
[2023-08-21] MEDS: SENNOSIDES-DOCUSATE SODIUM 1 EACH TAB PO SCH (20:06)
[2023-08-21] MEDS: SODIUM CHLORIDE 0.9% 1,000 ML IV SCH (20:09)
[2023-08-22] MEDS: LACTATED RINGERS 1,000 ML IV SCH (05:24)
[2023-08-22] MEDS: hydrOXYzine pamoate 25 MG CAP PO PRN ×2 (06:28→12:10)
[2023-08-22] MEDS: HYDROcodone/APAP 10-325MG 1 EACH TAB PO PRN ×2 (06:29→12:07)
[2023-08-22] MEDS: lisinopriL 10 MG TAB PO SCH (09:41)
[2023-08-22] MEDS: CYANOCOBALAMIN 500 MCG TAB PO SCH (09:41)
[2023-08-22] MEDS: FERROUS SULFATE 325 MG TAB PO SCH (09:41)
[2023-08-22] MEDS: CHOLECALCIFEROL 125 MCG (5000 IU) TABLET PO SCH (09:41)
[2023-08-22] MEDS: MAGNESIUM OXIDE 400 MG TAB PO SCH (09:41)
[2023-08-22] MEDS: PRAVASTATIN SODIUM 40 MG TAB PO SCH (09:41)
[2023-08-22] MEDS: FUROSEMIDE 20 MG TAB PO SCH (09:41)
[2023-08-22] MEDS: PREGABALIN 75 MG CAP PO SCH (09:41)
[2023-08-22] MEDS: allopurinoL 100 MG TAB PO SCH (09:41)
[2023-08-22] MEDS: APIXABAN 5 MG TAB PO SCH (09:41)
[2023-08-22] MEDS: buPROPion SR 100 MG TABLET.ER PO SCH (09:41)
--- NOTE | 2023-08-22 11:20 | P.DS ---
Providers Date of admission: 08/17/23 14:17 Expected date of discharge: 08/22/23 Attending physician: Harpreet Garces Consults: 08/16/23 12:51 Consult Physician Routine Consulting Provider: Aundrea Dimas Consult Reason/Comments: medical management Do you want consulting provider notified?: Yes Primary care physician: Olga Nathaly - Discharge Diagnosis(es) (1) Osteoarthritis of left knee Current Visit: Yes Status: Acute (2) S/P total knee arthroplasty Current Visit: Yes Status: Acute Hospital Course: This is a 73-year-old female with known history of degenerative arthritis of the left knee. The patient presented for evaluation as an outpatient. After discussion and consideration patient elects to proceed with total knee arthroplasty. The patient is seen preoperatively by Dr. Garces and medically cleared for surgery by their primary care physician. Patient is admitted to [facility] on 08/16/2023 for total knee arthroplasty. The procedure is performed without complication or sequelae. The patient is doing well postoperatively. Labs and vital signs are stable on day of discharge. On day of discharge patient's knee incision is healing well. There is minimal erythema. There is no drainage noted at this time. There is minimal soft tissue swelling to the knee. Patient has full foot and ankle motion without difficulty or pain. Calf is soft and nontender to palpation. Neurovascular status to the left lower extremity is intact. Patient is discharged to rehab in good condition. Please see med rec for accurate list of home medications. Patient Condition at Discharge: Stable Plan - Discharge Summary Discharge Rx Participant: No New Discharge Prescriptions: New hydrOXYzine pamoate [Vistaril] 25 mg PO Q6H PRN #30 capsule PRN Reason: Pain Sennosides [Senokot] 2 tab PO DAILY PRN #60 tablet PRN Reason: Constipation HYDROcodone/APAP 10-325MG [[place] 10-325] 1 tab PO Q6H PRN #30 tab PRN Reason: Pain No Action Apixaban [Eliquis] 5 mg PO BID allopurinoL [Zyloprim] 100 mg PO DAILY Furosemide [Lasix] 20 mg PO DAILY Sennosides [Senna] 8.6 mg PO BID Pravastatin Sodium [Pravachol] 40 mg PO DAILY Pregabalin [Lyrica] 75 mg PO BID #6 cap buPROPion HCL [buPROPion HCL SR] 200 mg PO BID lisinopriL [Prinivil] 10 mg PO QAM Magnesium 400 mg PO DAILY Ferrous Sulfate [Iron (65 MG Elemental)] 325 mg PO DAILY Cyanocobalamin (Vitamin B-12) [Vitamin B-12] 1,000 mcg PO DAILY Cholecalciferol [Vitamin D3 (125 Mcg = 5000 Iu)] 125 mcg PO DAILY Acetaminophen Tab [Tylenol] 650 mg PO Q6HR PRN tab PRN Reason: Fever And/ Or Pain clonazePAM [KlonoPIN] 0.25 mg PO HS Discharge Medication List Apixaban [Eliquis] 5 mg PO BID 07/29/20 [History] allopurinoL [Zyloprim] 100 mg PO DAILY 07/29/20 [History] Furosemide [Lasix] 20 mg PO DAILY 08/26/21 [History] Sennosides [Senna] 8.6 mg PO BID 09/18/21 [History] buPROPion HCL [buPROPion HCL SR] 200 mg PO BID 09/18/21 [History] lisinopriL [Prinivil] 10 mg PO QAM 09/18/21 [History] Magnesium 400 mg PO DAILY 12/02/21 [History] Pravastatin Sodium [Pravachol] 40 mg PO DAILY 12/02/21 [History] Cyanocobalamin (Vitamin B-12) [Vitamin B-12] 1,000 mcg PO DAILY 11/18/22 [History] Ferrous Sulfate [Iron (65 MG Elemental)] 325 mg PO DAILY 11/18/22 [History] Cholecalciferol [Vitamin D3 (125 Mcg = 5000 Iu)] 125 mcg PO DAILY 01/08/23 [History] Acetaminophen Tab [Tylenol] 650 mg PO Q6HR PRN tab 01/11/23 [Rx] Pregabalin [Lyrica] 75 mg PO BID #6 cap 01/11/23 [Rx] clonazePAM [KlonoPIN] 0.25 mg PO HS 02/04/23 [History] Sennosides [Senokot] 2 tab PO DAILY PRN #60 tablet 08/16/23 [Rx] HYDROcodone/APAP 10-325MG [[place] 10-325] 1 tab PO Q6H PRN #30 tab 08/18/23 [Rx] hydrOXYzine pamoate [Vistaril] 25 mg PO Q6H PRN #30 capsule 10/26/23 [Rx] Follow up Appointment(s)/Referral(s): [facility] [NON-STAFF] - As Needed (Continuous Passive Motion knee machine) [facility], [NON-STAFF] - As Needed [facility] [NON-STAFF] - As Needed Harpreet Garces DO [Doctor of Osteopathic Medicine] - 08/31/23 2:30 pm Patient Instructions/Handouts: Knee Replacement (DC) Activity/Diet/Wound Care/Special Instructions: Weightbearing as tolerated with a walker. CPM 5-6h daily as tolerated. Leave dressing intact. Dressing may be removed by home care nurse or by patient in 7 days. Then change dressing twice daily until follow up. May shower with initial dressing intact and after removal. If dressing become saturated, please remove. Recommend use of compression stockings daily until follow up to help prevent swelling and blood clots. May remove at night before sleeping. Please resume Eliquis. Please follow up with [facility] and call with any questions or concerns, . Discharge Disposition: TRANSFER TO SNF/ECF
--- NOTE | 2023-08-22 12:54 | P.PN ---
Subjective Progress Note Date: 08/22/23 73-year-old patient with past medical history significant for pulmonary embolism, osteoarthritis, hypertension, factor V Leyden degenerative disease of joint was admitted for elective left knee surgery. Patient was last seen in summerMarch 2023 when she had right knee surgery done and did fairly well pos tprocedure * Postoperatively patient does complain of left knee pain, x-ray left knee shows changes of left knee arthroplasty with components well-seated * Postprocedure blood work obtained showed WBC 10.96 hemoglobin 11.8 platelet count of 160 08/19. Patient seen and examined. Vital signs stable with temperature of 98.5, heart rate 80, respirations 16, blood pressure 167/78. States left knee pain has improved. at bedside. 08/20. Patient seen and examined. Patient medically stable for discharge from medicine perspective 08/21. Patient seen and examined. Denies any knee pain. Waiting to go to rehab, most likely tomorrow 08/22. Patient seen and examined. Laying comfortably in the bed, patient is medically cleared for discharge REVIEW OF SYSTEMS: CONSTITUTIONAL: No fever, no malaise,. CARDIOVASCULAR: No chest pain, no palpitations, no syncope. PULMONARY: No shortness of breath, no cough, GASTROINTESTINAL: No diarrhea, no nausea, no vomiting, no abdominal pain. NEUROLOGICAL: No headaches, no weakness, PHYSICAL EXAMINATION: GENERAL: The patient is alert and oriented x3, not in any acute distress. Well developed, well nourished. HEENT: Pupils are round and equally reacting to light. EOMI. No scleral icterus. No conjunctival pallor. Normocephalic, atraumatic. No pharyngeal erythema. No thyromegaly. CARDIOVASCULAR: S1 and S2 present. No murmurs, rubs, or gallops. PULMONARY: Chest is clear to auscultation, no wheezing or crackles. ABDOMEN: Soft, nontender, nondistended, normoactive bowel sounds. No palpable organomegaly. MUSCULOSKELETAL: Knee surgical incision seen EXTREMITIES: No cyanosis, clubbing, or pedal edema. NEUROLOGICAL: Gross neurological examination did not reveal any focal deficits. SKIN: No rashes. Assessment and plan Status post left knee total arthroplasty History of pulmonary embolism History of factor V Leyden Hypertension Hyperuricemia * In regards to left knee arthroplasty continue with pain control, being discharged to rehab * In regards to history of pulmonary embolism continue patient on Eliquis * In regards to history of hypertension continue lisinopril, Lasix monitor for hypotension while receiving pain medications * In regards to history of hyperuricemia continue patient on allopurinol Patient medical stable for discharge Labs and medication were reviewed.. Continue same treatment. Continue with symptomatic treatment. Resume home medication. Monitor labs and vitals. DVT and GI prophylaxis. Further recommendations as per clinical course of the patient Dictation was produced using [employer] dictation software. please excuse any grammatical, word or spelling errors. Objective - Vital Signs Vital signs: Vital Signs Temp 97.8 F 08/22/23 07:12 Pulse 81 08/22/23 07:12 Resp 17 08/22/23 07:12 BP 129/77 08/22/23 07:12 Pulse Ox 95 08/22/23 07:12 FiO2 Intake & Output 08/21/23 08/22/23 08/22/23 18:59 06:59 18:59 Intake Total 118 Balance 118 Intake: Oral 118 Other: Voiding Method Diaper Diaper Diaper # Voids 1 3 - Labs CBC & Chem 7: 08/19/23 05:36 08/19/23 05:36
[2023-08-22 15:12] VITALS: BP 107/68; PULSE 98; RESP 19; TEMP 98.5
== END 2023-08-22 16:35 | DRG 470 ==
LOC: OR 09:09 → 4SSUR 12:44 → OR 08-17 14:17 → 4SSUR 08-17 14:17
PROVIDERS: ADMIT Orthopaedic Surgery; ATTEND Orthopaedic Surgery
PROC: 0SRD0J9 Replacement of Left Knee Joint with Synthetic Substitute, Cemented, Open Approach (ICD-10-PCS; principal; 2023-08-17)
DX: M17.12 Unilateral primary osteoarthritis, left knee (principal); D68.51 Activated protein C resistance; I10 Essential (primary) hypertension; Z96.651 Presence of right artificial knee joint; H91.90 Unspecified hearing loss, unspecified ear; Z79.01 Long term (current) use of anticoagulants; Z79.899 Other long term (current) drug therapy; Z82.49 Family history of ischemic heart disease and other diseases of the circulatory system; Z86.16 Personal history of COVID-19; Z86.711 Personal history of pulmonary embolism; Z90.710 Acquired absence of both cervix and uterus; Z88.8 Allergy status to other drugs, medicaments and biological substances
CPT/HCPCS: 64448; 64999; 80048; 85025

== ENCOUNTER → 2024-01-02 | Outpatient (CLI) | payer MEDICARE, OTHER ==
[2024-01-02 18:52] LABS: Basophils # (A) 0.02 X 10*3/uL (0.00-0.10); Basophils % (A) 0.4 %; Eosinophils # (A) 0.03 X 10*3/uL (0.04-0.35); Eosinophils % (A) 0.5 %; HCT 42.5 % (37.2-46.3); HGB 13.6 g/dL (12.0-15.0); Lymphocytes # (A) 2.47 X 10*3/uL (0.90-5.00); Lymphocytes % (A) 44.4 %; MCH 29.7 pg (27.0-32.0); MCV 92.8 FL (80.0-97.0); Mean Platelet Volume 10.6 FL (9.5-12.2); Monocytes # (A) 1.09 X 10*3/uL (0.20-1.00); Monocytes % (A) 19.6 %; NRBC Per 100 WBC 0 X 10*3/uL (0.00-0.01); Neutrophils % (A) 34.2 %; Platelet Count 209 X 10*3/uL (140-440); RBC 4.58 X 10*6/uL (4.10-5.20); RDW 14.4 % (11.5-14.5); WBC 5.56 X 10*3/uL (4.50-10.00)
[2024-01-02 19:03] LABS: ALT 11 U/L (8-44); AST 16 U/L (13-35); Albumin 4.5 g/dL (3.8-4.9); Albumin/Globulin Ratio 1.73 Ratio (1.60-3.17); Alkaline Phosphatase 93 U/L (41-126); BUN/Creat Ratio 22.56 Ratio (12.00-20.00); Blood Urea Nitrogen 20.3 mg/dL (9.0-27.0); Calcium 10.8 mg/dL (8.7-10.3); Carbon Dioxide 26.7 mmol/L (21.6-31.8); Chloride 100 mmol/L (96-109); Globulin 2.6 g/dL (1.6-3.3); Glucose 91 mg/dL (70-110); Potassium 4.7 mmol/L (3.5-5.5); Sodium 140 mmol/L (135-145); T4, Free (Free Thyroxine) 1.29 ng/dL (0.80-1.80); Total Bilirubin 0.4 mg/dL (0.3-1.2); Total Protein 7.1 g/dL (6.2-8.2)
== END | disposition home or self-care (01) ==
LOC: LABWHC1 13:07
PROVIDERS: ATTEND Family Medicine
DX: Z01.812 Encounter for preprocedural laboratory examination (principal); E83.52 Hypercalcemia; N39.0 Urinary tract infection, site not specified; D68.51 Activated protein C resistance
CPT/HCPCS: 36415; 80053; 84439; 84443; 85025

== ENCOUNTER 2024-02-14 15:55 | Inpatient (IN) | payer MEDICARE, OTHER ==
--- NOTE | 2024-02-14 16:38 | ED ---
Abdominal Pain HPI - General Source: patient, family, RN notes reviewed Mode of arrival: wheelchair <Cinthia Paz - Last Filed: 02/14/24 16:36> - General Source: RN notes reviewed, old records reviewed Mode of arrival: wheelchair Limitations: no limitations - History of Present Illness MD Complaint: abdominal pain -: days(s) Location: LLQ, L flank Radiation: LLQ, L flank, back Migration to: bilateral flank Severity: moderate Severity scale (1-10): 5 Quality: stabbing, aching Consistency: intermittent Improves With: nothing Worsens With: nothing Associated Symptoms: nausea Treatments Prior to Arrival: prescription analgesics <Arnold Rawls - Last Filed: 02/22/24 21:04> - General Chief Complaint: Abdominal Pain Stated Complaint: abd pain Time Seen by Provider: 02/14/24 16:10 - History of Present Illness Initial Comments: Cass notethis is a 73-year-old female presents the emergency department chief complaint of abdominal pain, nausea, and diarrhea. Patient states that the pain is in the middle of her abdomen. Patient has a history of diverticulitis and has followed with Dr. Hummel for surgical consultation. Patient is currently being treated for a urinary tract infection with cefuroxime and Macrobid. (Cinthia Paz) This is a 73-year-old female to the ER for evaluation abdominal pain nausea vomiting and diarrhea. Patient having significant similar history in the past with history of diverticulitis feels like she has diverticulitis again. Patient recently placed on antibiotics for UTI without change or help in symptoms. P atient is a progressively worsening she was scheduled for outpatient CT scan unable to make it to outpatient testing secondary to significant symptoms of weakness lightheadedness dizziness weakness and not feeling well (Arnold Rawls) - Related Data Home Medications Medication Instructions Recorded Confirmed Apixaban [Eliquis] 5 mg PO BID 07/29/20 02/15/24 allopurinoL [Zyloprim] 100 mg PO DAILY 07/29/20 02/15/24 Furosemide [Lasix] 20 mg PO DAILY 08/26/21 02/15/24 Sennosides [Senna] 17.2 mg PO BID 09/18/21 02/14/24 buPROPion HCL [buPROPion HCL SR] 200 mg PO BID 09/18/21 02/15/24 Cyanocobalamin (Vitamin B-12) 1,000 mcg PO DAILY 11/18/22 02/14/24 [Vitamin B-12] Ferrous Sulfate [Iron (65 MG 325 mg PO DAILY 11/18/22 02/14/24 Elemental)] Cholecalciferol [Vitamin D3 (125 125 mcg PO DAILY 01/08/23 02/14/24 Mcg = 5000 Iu)] Betamethasone Dipropionate 1 applic TOPICAL BID PRN 02/14/24 02/14/24 [Betamethasone Dipropionate 0.05% Cream] Cefuroxime [Ceftin] 250 mg PO BID 02/14/24 02/14/24 HYDROcodone/APAP 7.5-325MG [[place] 1 tab PO TID PRN 02/14/24 02/14/24 7.5-325] Hydrocortisone Cream 1 applic TOPICAL BID PRN 02/14/24 02/14/24 [Hydrocortisone 2.5% Cream] Ketoconazole 2% Cream [Nizoral 2%] 1 applic TOPICAL BID PRN 02/14/24 02/14/24 Lutein 10 mg PO DAILY 02/14/24 02/14/24 Magnesium Citrate 250mg 250 mg PO DAILY 02/14/24 02/14/24 Multivitamins, Thera [Multivitamin 1 tab PO DAILY 02/14/24 02/14/24 (formulary)] Nitrofurantoin Macrocrystal 50 mg PO DAILY 02/14/24 02/14/24 [Macrodantin] Pravastatin Sodium [Pravachol] 40 mg PO HS 02/14/24 02/15/24 Triamcinolone 0.1% Cream [Kenalog 1 applic TOPICAL BID 02/14/24 02/15/24 0.1% Cream] Venlafaxine HCl [Effexor XR] 75 mg PO DAILY 02/14/24 02/15/24 clonazePAM [KlonoPIN] 0.5 mg PO HS 02/14/24 02/14/24 lisinopriL [Zestril] 10 mg PO DAILY 02/14/24 02/15/24 Previous Rx's Medication Instructions Recorded Pregabalin [Lyrica] 75 mg PO BID 3 Days #6 cap 08/22/23 Allergies Allergy/AdvReac Type Severity Reaction Status Date / Time itraconazole Allergy IV, Verified 02/14/24 21:35 burning from fingers to shoulder ondansetron [From Zofran] AdvReac severe Verified 02/14/24 21:35 burning @IV site, itching Review of Systems ROS Other: All systems not noted in ROS Statement are negative. <Cinthia Paz - Last Filed: 02/14/24 16:36> ROS Other: All systems not noted in ROS Statement are negative. <Arnold Rawls - Last Filed: 02/22/24 21:04> ROS Statement: Those systems with pertinent positive or pertinent negative responses have been documented in the HPI. Past Medical History Past Medical History: Blood Disorder, Hearing Disorder / Deafness, Hypertension, Musculoskeletal Disorder, Pulmonary Embolus (PE), Skin Disorder, Sleep Apnea/CPAP/BIPAP Additional Past Medical History / Comment(s): DDD. PE September 2019. hx gout. leiden factor V, rich foot edema,, new rich leg edema( pt to call [facility]), constipation, diverticulosis, eczema, severe urinary incontinece- uses brief, pt states dx with COVID 09/18/21 History of Any Multi-Drug Resistant Organisms: None Reported Past Surgical History: Bariatric Surgery, Cholecystectomy, Hysterectomy, Tonsillectomy Additional Past Surgical History / Comment(s): cataract sx. Gastric stapling in 1979. Cataract surgery 2015. Colonoscopy June 2020. DEDRA/BSO with umbilical hernia repair in September 2020, cataract surgery Past Anesthesia/Blood Transfusion Reactions: No Reported Reaction Additional Past Anesthesia/Blood Transfusion Reaction / Comment(s): no blood tx hx Past Psychological History: Anxiety, Depression Smoking Status: Never smoker Past Alcohol Use History: None Reported Past Drug Use History: None Reported - Past Family History Mother Family Medical History: Myocardial Infarction (ID) Father Family Medical History: Myocardial Infarction (ID) Brother(s) Family Medical History: Deep Vein Thrombosis (DVT), Myocardial Infarction (ID), Pulmonary Embolus <Cinthia Paz - Last Filed: 02/14/24 16:36> General Exam <Cinthia Paz - Last Filed: 02/14/24 16:36> General appearance: alert, in no apparent distress Head exam: Present: atraumatic, normocephalic, normal inspection Eye exam: Present: normal appearance, PERRL, EOMI. Absent: scleral icterus, conjunctival injection, periorbital swelling ENT exam: Present: normal exam, mucous membranes moist Neck exam: Present: normal inspection. Absent: tenderness, meningismus, lymphadenopathy Respiratory exam: Present: normal lung sounds bilaterally. Absent: respiratory distress, wheezes, rales, rhonchi, stridor Cardiovascular Exam: Present: regular rate, normal rhythm, normal heart sounds. Absent: systolic murmur, diastolic murmur, rubs, gallop, clicks GI/Abdominal exam: Present: soft, normal bowel sounds. Absent: distended, tenderness, guarding, rebound, rigid Extremities exam: Present: normal inspection, full ROM, normal capillary refill. Absent: tenderness, pedal edema, joint swelling, calf tenderness Back exam: Present: normal inspection Neurological exam: Present: alert, oriented X3, CN II-XII intact Psychiatric exam: Present: normal affect, normal mood Skin exam: Present: warm, dry, intact, normal color. Absent: rash <Arnold Rawls - Last Filed: 02/22/24 21:04> - General Exam Comments Initial Comments: Visual Physical Exam Vital signs reviewed General: Well-appearing, nontoxic, no acute distress. Head: Normocephalic, atraumatic Eyes: PERRLA, EOMI ENT: Airway patent Chest: Nonlabored breathing Skin: No visual rash, normal skin tone Neuro: Alert and oriented 3 Musculoskeletal: No gross abnormalities (Stieler,Cinthia) Course <Arnold Rawls - Last Filed: 02/22/24 21:04> Vital Signs 02/14/24 02/14/24 02/14/24 15:57 20:58 22:14 Temperature 98.2 F 98.3 F Pulse Rate 88 90 81 Respiratory 18 17 17 Rate Blood Pressure 153/92 124/81 148/87 O2 Sat by Pulse 98 97 95 Oximetry - Reevaluation(s) Reevaluation #1: 02/14/24 20:40 Medical records reviewed (Arnold Rawls) Reevaluation #2: 02/14/24 20:40 Patient still feels sick and unwell (Arnold Rawls) Reevaluation #3: 02/14/24 20:40 Patient informed of results and questions answered (Arnold Rawls) Reevaluation #4: Was pt. sent in by a medical professional or institution (, [facility], FAMILY DEVELOPMENT SPECIALIST, urgent care, hospital, or prison...) When possible be specific @ -no Did you speak to anyone other than the patient for history (EMS, parent, family, police, friend...)? What history was obtained from this source @ -no Did you review nursing and triage notes (agree or disagree)? Why? @ -agree Are old charts reviewed (outside hosp., previous admission, EMS record, old EKG, old radiological studies, urgent care reports/EKG's, prison records)? Report findings @ -yes Differential Diagnosis (chest pain, altered mental status, abdominal pain women, abdominal pain men, vaginal bleeding, weakness, fever, dyspnea, syncope, headache, dizziness, GI bleed, back pain, seizure, CVA, palpatations, mental health, musculoskeletal)? @ -prior EKG interpreted by me (3pts min.). @ -yes X-rays interpreted by me (1pt min.). @ -no CT interpreted by me (1pt min.). @ -Yes positive for diverticulitis U/S interpreted by me (1pt. min.). @ -no What testing was considered but not performed or refused? (CT, X-rays, U/S, labs)? Why? @ -none What meds were considered but not given or refused? Why? @ -none Did you discuss the management of the patient with other professionals (professionals i.e. [facility], FAMILY DEVELOPMENT SPECIALIST, lab, RT, psych nurse, social media sr strategy manager, pipe line repairer, teacher, disbursing officer, case folder)? Give summary @ -no Was smoking cessation discussed for >3mins.? @ -no Was critical care preformed (if so, how long)? @ -no Were there social determinants of health that impacted care today? How? (H omelessness, low income, unemployed, alcoholism, drug addiction, transportation, low edu. Level, literacy, decrease access to med. care, fpc, rehab)? @ -none Was there de-escalation of care discussed even if they declined (Discuss DNR or withdrawal of care, Hospice)? DNR status @ -no What co-morbidities impacted this encounter? (DM, HTN, Smoking, COPD, CAD, Cancer, CVA, ARF, Chemo, Hep., AIDS, mental health diagnosis, sleep apnea, morbid obesity)? @ -none Was patient admitted / discharged? Hospital course, mention meds given and route, prescriptions, significant lab abnormalities, going to OR and other pertinent info. @ - 73 female to the ER for evaluation of nausea vomiting abdominal pain diarrhea positive significant findings of CT of diverticulitis. Patient will be admitted for further evaluation failure of outpatient treatment Admitted Undiagnosed new problem with uncertain prognosis? @ -no Drug Therapy requiring intensive monitoring for toxicity (Heparin, Nitro, Insulin, Cardizem)? @ -no Were any procedures done? @ -no Diagnosis/symptom? @ -Nausea vomiting abdominal pain diverticulitis Acute, or Chronic, or Acute on Chronic? @ -Acute Uncomplicated (without systemic symptoms) or Complicated (systemic symptoms)? @ -Complicated Side effects of treatment? @ -no Exacerbation, Progression, or Severe Exacerbation? @ -exacerbation Poses a threat to life or bodily function? How? (Chest pain, USA, ID, pneumonia, PE, COPD, DKA, ARF, appy, cholecystitis, CVA, Diverticulitis, Homicidal, Suicidal, threat to staff... and all critical care pts) @ -yes significant extremes of age (Arnold Rawls) Reevaluation #5: Differential Abdominal Pain Men: Appendicitis, cholecystitis, diverticulosis, ischemic bowel, pancreatitis, hep atitis, UTI, gastroenteritis, AAA, incarcerated hernia, bowel obstruction, constipation, inflammatory bowel, hepatitis, peptic ulcer disease, splenic infarction, perforated viscus, testicular torsion, this is not meant to be an all-inclusive list (Arnold Rawls) - Consultations Consultation #1: Spoke with Dr. Adames who agrees to admit this patient (Arnold Rawls) Medical Decision Making <Cinthia Paz - Last Filed: 02/14/24 16:36> - Lab Data Result diagrams: 02/22/24 06:54 02/22/24 06:54 - Radiology Data Radiology results: report reviewed (CT abdomen pelvis positive for acute diverticulitis, chest x-ray KUB negative for acute disease), image reviewed <Arnold Rawls - Last Filed: 02/22/24 21:04> - Medical Decision Making I completed the quick note portion of this chart signed Cinthia Paz PA-C (Cinthia Paz) 73 female to the ER for evaluation of nausea vomiting abdominal pain diarrhea positive significant findings of CT of diverticulitis. Patient will be admitted for further evaluation failure of outpatient treatment (Arnold Rawls) - Lab Data Lab Results 02/14/24 02/14/24 02/15/24 Range/Units 16:39 16:39 09:04 WBC 16.7 H 16.6 H (3.8-10.6) k/uL RBC 4.46 3.89 (3.80-5.40) m/uL Hgb 13.4 12.0 (11.4-16.0) gm/dL Hct 40.9 36.3 (34.0-46.0) % MCV 91.7 93.2 (80.0-100.0) fL MCH 30.0 30.9 (25.0-35.0) pg MCHC 32.7 33.2 (31.0-37.0) g/dL RDW 13.3 13.3 (11.5-15.5) % Plt Count 179 142 L (150-450) k/uL Estimated Plt Count (Adequate) MPV 8.1 8.2 Immature Gran % (Auto) % Absolute Nucleated RBC % Neutrophils % % Neutrophils % (Manual) 61 68 % Lymphocytes % % Lymphocytes % (Manual) 7 10 % Monocytes % % Monocytes % (Manual) 32 22 % Eosinophils % % Basophils % % Immature Gran # (0.00-0.04) X 10*3/uL Neutrophils # (1.80-7.70) X 10*3/uL Neutrophils # (Manual) 10.19 H 11.29 H (1.3-7.7) k/uL Lymphocytes # (0.90-5.00) X 10*3/uL Lymphocytes # (Manual) 1.17 1.66 (1.0-4.8) k/uL Monocytes # (0.20-1.00) X 10*3/uL Monocytes # (Manual) 5.34 H 3.65 H (0-1.0) k/uL Eosinophils # (0.04-0.35) X 10*3/uL Basophils # (0.00-0.10) X 10*3/uL Nucleated RBCs 0 0 (0-0) /100 WBC NRBC/100 WBC Diff (0.00-0.01) X 10*3/uL Manual Slide Review Performed Performed RBC Morphology Normal Normal Sodium 137 (137-145) mmol/L Potassium 3.6 (3.5-5.1) mmol/L Chloride 102 (98-107) mmol/L Carbon Dioxide 27 (22-30) mmol/L Anion Gap 8 mmol/L BUN 10 (7-17) mg/dL Creatinine 0.77 (0.52-1.04) mg/dL Est GFR (CKD-EPI) (>=60) Est GFR (CKD-EPI)AfAm 87 (>60 ml/min/1.73 sqM) Est GFR (CKD-EPI)NonAf 76 (>60 ml/min/1.73 sqM) BUN/Creatinine Ratio (12.00-20.00) Ratio Glucose 121 H (74-99) mg/dL Calcium 10.3 H (8.4-10.2) mg/dL Phosphorus (2.5-4.5) mg/dL Magnesium 1.7 (1.6-2.3) mg/dL Total Bilirubin 1.0 (0.2-1.3) mg/dL AST 17 (14-36) U/L ALT 13 (4-34) U/L Alkaline Phosphatase 104 (38-126) U/L Total Protein 6.6 (6.3-8.2) g/dL Albumin 4.0 (3.5-5.0) g/dL Amylase 51 (30-110) U/L Lipase 33 (23-300) U/L 02/15/24 02/16/24 02/16/24 Range/Units 09:04 07:01 07:01 WBC 18.37 H (3.8-10.6) k/uL RBC 3.53 L (3.80-5.40) m/uL Hgb 10.7 L (11.4-16.0) gm/dL Hct 32.9 L (34.0-46.0) % MCV 93.2 (80.0-100.0) fL MCH 30.3 (25.0-35.0) pg MCHC 32.5 (31.0-37.0) g/dL RDW 13.3 (11.5-15.5) % Plt Count 134 L (150-450) k/uL Estimated Plt Count Decreased (Adequate) MPV 10.4 Immature Gran % (Auto) 2.10 % Absolute Nucleated RBC 0 % Neutrophils % 68.0 % Neutrophils % (Manual) % Lymphocytes % 5.7 % Lymphocytes % (Manual) % Monocytes % 23.2 % Monocytes % (Manual) % Eosinophils % 0.8 % Basophils % 0.2 % Immature Gran # 0.38 H (0.00-0.04) X 10*3/uL Neutrophils # 12.49 H (1.80-7.70) X 10*3/uL Neutrophils # (Manual) (1.3-7.7) k/uL Lymphocytes # 1.05 (0.90-5.00) X 10*3/uL Lymphocytes # (Manual) (1.0-4.8) k/uL Monocytes # 4.27 H (0.20-1.00) X 10*3/uL Monocytes # (Manual) (0-1.0) k/uL Eosinophils # 0.15 (0.04-0.35) X 10*3/uL Basophils # 0.03 (0.00-0.10) X 10*3/uL Nucleated RBCs (0-0) /100 WBC NRBC/100 WBC Diff 0 (0.00-0.01) X 10*3/uL Manual Slide Review Morph Only RBC Morphology Sodium 136 L 135 (137-145) mmol/L Potassium 3.0 L 3.3 L (3.5-5.1) mmol/L Chloride 104 102 (98-107) mmol/L Carbon Dioxide 23 17.9 L (22-30) mmol/L Anion Gap 9 15.10 H mmol/L BUN 8 8.7 L (7-17) mg/dL Creatinine 0.70 0.8 (0.52-1.04) mg/dL Est GFR (CKD-EPI) 77 (>=60) Est GFR (CKD-EPI)AfAm >90 (>60 ml/min/1.73 sqM) Est GFR (CKD-EPI)NonAf 85 (>60 ml/min/1.73 sqM) BUN/Creatinine Ratio 10.88 L (12.00-20.00) Ratio Glucose 116 H 98 (74-99) mg/dL Calcium 9.1 9.1 (8.4-10.2) mg/dL Phosphorus 2.8 (2.5-4.5) mg/dL Magnesium 1.6 (1.6-2.3) mg/dL Total Bilirubin 1.0 (0.2-1.3) mg/dL AST 18 (14-36) U/L ALT 12 (4-34) U/L Alkaline Phosphatase 101 (38-126) U/L Total Protein 5.7 L (6.3-8.2) g/dL Albumin 3.2 L (3.5-5.0) g/dL Amylase (30-110) U/L Lipase (23-300) U/L Disposition <Cinthia Paz - Last Filed: 02/14/24 16:36> Is patient prescribed a controlled substance at d/c from ED?: No Time of Disposition: 20:40 <Arnold Rawls - Last Filed: 02/22/24 21:04> Clinical Impression: Diverticulitis, Abdominal colic, Abdominal pain, Acute diverticulitis Disposition: ADMITTED IP TO THIS HOSP Condition: Good
[2024-02-14 17:04] LABS: ALT 13 U/L (4-34); AST 17 U/L (14-36); African American GFR (CKD) 87 (>60 ml/min/1.73 sqM); Alkaline Phosphatase 104 U/L (38-126); Amylase 51 U/L (30-110); Anion Gap 8 mmol/L; Blood Urea Nitrogen 10 mg/dL (7-17); Calcium 10.3 mg/dL (8.4-10.2); Carbon Dioxide 27 mmol/L (22-30); Chloride 102 mmol/L (98-107); Glucose 121 mg/dL (74-99); Lipase 33 U/L (23-300); Magnesium 1.7 mg/dL (1.6-2.3); Non-African American GFR(CKD) 76 (>60 ml/min/1.73 sqM); Potassium 3.6 mmol/L (3.5-5.1); Sodium 137 mmol/L (137-145); Total Protein 6.6 g/dL (6.3-8.2)
[2024-02-14 17:16] LABS: HCT 40.9 % (34.0-46.0); HGB 13.4 gm/dL (11.4-16.0); MCHC 32.7 g/dL (31.0-37.0); MCV 91.7 fL (80.0-100.0); Mean Platelet Volume 8.1; Platelet Count 179 k/uL (150-450); RBC 4.46 m/uL (3.80-5.40); RDW 13.3 % (11.5-15.5); WBC 16.7 k/uL (3.8-10.6)
--- NOTE | 2024-02-14 17:21 | XR ---
EXAMINATION TYPE: XR [facility] DATE OF EXAM: 02/14/2024 COMPARISON: None INDICATION: Abdomen pain and nausea TECHNIQUE: Single view abdomen supine view FINDINGS: Nonspecific bowel gas is present. Postsurgical changes are in the left upper quadrant. Cholecystectom y clips are in the right upper quadrant. Psoas margins are normal. No organomegaly is present. IMPRESSION: 1. Nonspecific abdomen.
[2024-02-14 17:53] LABS: Lymphocytes # (M) 1.17 k/uL (1.0-4.8); Monocytes # (M) 5.34 k/uL (0-1.0); Neutrophils # (M) 10.19 k/uL (1.3-7.7); Neutrophils % (M) 61 %; Nucleated Red Blood Cells 0 /100 WBC (0-0); RBC Morphology Normal; Total Cells Counted 100
--- NOTE | 2024-02-14 19:07 | CT ---
EXAMINATION TYPE: CT abdomen pelvis w con CT DLP: 1489.5 mGycm, Automated exposure control for dose reduction was used. DATE OF EXAM: 02/14/2024 6:34 PM COMPARISON: KUB earlier today. CLINICAL INDICATION:Female, 73 years old with history of abdominal pain, hx diverticulitis; abdominal pain, diarrhea and nausea TECHNIQUE: Axial CT of the abdomen and pelvis. Sagittal and coronal reformats were created on a [employer] workstation. Contrast used:100ml mL of Isovue 300 with IV Contrast, (none if empty) Oral contrast used: without Oral Contrast (none if empty) FINDINGS: LOWER CHEST: Mild subsegmental atelectasis. No acute infiltrate or effusion. Heart size is normal. No pericardial effusion. Small to moderate-sized hiatal hernia with possible epiphrenic diverticulum. ABDOMEN LIVER: Unremarkable GALLBLADDER AND BILE DUCTS: The gallbladder is surgically absent. Biliary tree does not appear pathol ogically dilated. PANCREAS: Unremarkable. SPLEEN: Unremarkable. ADRENAL GLANDS: Thickened and small nodular appearance of the adrenals, could be due to hyperplasia a nd/or adenomatoid changes.. KIDNEYS AND URETERS: Ovoid 2.3 x 2 cm cyst in the mid right kidney. Small cortical scarring in the davis perior left kidney. Kidneys concentrate and excrete contrast symmetrically. No hydronephrosis is show n. PELVIS BLADDER: Unremarkable REPRODUCTIVE: Organs appear absent, correlate with surgical history. ABDOMEN & PELVIS STOMACH AND BOWEL: Postoperative changes in the stomach may be from gastric sleeve. No evidence of a small bowel obstruction. Normal appendix. Mild fecal matter within the proximal colon. Beginning in the proximal transverse colon is nondistended with a mildly thickened appearance of the wall which m ay be because of this. No significant surrounding inflammatory changes. Continuing distally, there ar e numerous mostly sigmoid region diverticula with suggestion of possible mild pericolonic fat strandi ng which could indicate mild acute diverticulitis or focal colitis. PERITONEUM/RETROPERITONEUM: No evidence of pneumoperitoneum or free fluid. VASCULATURE: Mild to moderate atherosclerotic calcifications are present throughout the abdominal aor ta and its branches. Aorta is tortuous without evidence of aneurysm. Portal veins are enhancing. Sp lenic vein is patent. SMV is patent. LYMPH NODES: No enlarged nodes by CT size criteria. SOFT TISSUE/ABDOMINAL WALL: No acute abnormality. Mild broad-based laxity across the anterior abdomin al wall musculature. MUSCULOSKELETAL: Generally decreased osseous mineralization. No acute bony abnormality is seen. Moder ate diffuse degenerative changes with near complete interbody fusion L4-L5. Mild compression fracture deformity with mild anterior wedging L2, favored to be chronic. IMPRESSION: 1. Colonic diverticular disease. 2. Question mild sigmoid pericolonic fat stranding which could indicate mild acute diverticulitis or focal colitis. 3. Otherwise no acute abnormality detected to explain the patient's symptoms.
[2024-02-14] MEDS ORDERED: ONDANSETRON 4 MG/2 ML VIAL IVP PRN (20:38)
[2024-02-14] MEDS ORDERED: NALOXONE 0.4 MG/ML 1 ML VIAL IV PRN (20:38)
[2024-02-14] MEDS: SODIUM CHLORIDE 0.9% 1,000 ML IV SCH (20:59)
[2024-02-14] MEDS: PANTOPRAZOLE 40 MG/10 ML VIAL IV SCH (20:59)
[2024-02-14] MEDS: HYDROmorphone 1 MG/ML 1 ML SYRINGE IVP PRN (21:04)
[2024-02-14] MEDS: ONDANSETRON 4 MG/2 ML VIAL IVP STA (21:33)
[2024-02-14] MEDS: AMPICILLIN-SULBACTAM 3 GM in SODIUM CHLORIDE 0.9% 100 ML IVPB STA (21:58)
[2024-02-15] MEDS: MORPHINE SULFATE 4 MG/ML SYRINGE IVP STA (01:07)
[2024-02-15] MEDS: MORPHINE SULFATE 4 MG/ML SYRINGE IVP PRN (04:23)
[2024-02-15] MEDS: AMPICILLIN-SULBACTAM 3 GM in SODIUM CHLORIDE 0.9% 100 ML IVPB SCH (06:19)
[2024-02-15] MEDS ORDERED: CLOTRIMAZOLE 1% CREAM 30 GM TUBE TOPICAL PRN (08:20)
[2024-02-15] MEDS ORDERED: HYDROCORTISONE 1% CREAM 30 GM TUBE TOPICAL PRN (08:20)
--- NOTE | 2024-02-15 08:29 | P.HPIM ---
History of Present Illness H&P Date: 02/14/24 HISTORY OF PRESENT ILLNESS: 73-year-old one of our office patient with history of chronic anemia, obstructive sleep apnea on CPAP, recurrent gout, hypertension, hyperlipidemia, pulmonary embolism on anticoagulation, generalized depression anxiety attacks, recurrent abdominal pain diverticulosis, recurrent UTI, who had a previous history of robotic assisted laparoscopic reduction of incarcerated transverse colon, repair of recurrent incarcerated incisional ventral hernia with lysis of adhesion few times in the past. She also has chronic distal dermatitis, iron deficiency anemia, chronic neuropathy. She presented to the emergency department at [facility] on 02/14/2024 significant abdominal discomfort with nausea and diarrhea or pain and discomfort was in the middle abdominal area she is known history of recurrent UTI and diverticulitis she is seen few subspecialist in the past including gastroenterology and general surgery was treated for lysis of adhesions along with incarcerated hernia in the past successfully. At the time of the presentation to the emergency department laboratory evaluation showed 16.7 of white blood cell with normal hemoglobin and slight left shift, her lipase and amylase were normal, glucose was mildly elevated calcium level was elevated as well. No UA result were done at the time but CAT scan of the abdomen pelvis shows colonic diverticular disease with question of mild sigmoid pericolonic fat stranding which could indicate mild acute diverticulitis or focal colitis. With patient's current history and symptoms send that being admitted to the hospital for acute diverticulitis with UTI not full treatment as an outpatient. From the recurrent symptom patient has with diverticulitis and having extremity flareup last few years the patient probably should explore the possibility of surgical intervention, apparently had seen Dr. Hummel in the past patient panicked not to do surgery at that point. Will consult Dr. Hummel at this time for reevaluation and see if patient need to be rescoped again and need to explore the possibility of partial colectomy. REVIEW OF SYSTEMS: CONSTITUTIONAL: Well-developed no acute respiratory distress. EYES: No icterus sclerae, no conjunctivitis. EARS, NOSE, MOUTH, THROAT, and FACE: No sore throat, lymphadenopathy, carotid bruits or deformity. RESPIRATORY: No SOB cough or wheezes. CARDIOVASCULAR: No CP, Palpitation, PND, Orthopnea, or angina. GASTROINTESTINAL: Slight abdominal discomfort or mild pain and nausea. GENITOURINARY: Recurrent UTI with no recent stone. INTEGUMENT/BREAST: Negative for any muscular injury with mild osteoarthritis.. HEMATOLOGIC/LYMPHATIC: Negative for bleed or purpura. MUSCULOSKELTAL: Negative for Myalgia or arthralgia. NEURLOGICAL: No LOC, Sz or syncope, blurred vision dizziness or abnormality.. BEHAVIORAL/PSYCH: Negative. ENDOCRINE: Negative. PHYSICAL EXAMINATION: General Appearance: Alert, cooperative, no distress, appears stated age. Neck HEENT: Supple, no lymphadenopathy, no thyroid enlargement, no carotid bruits. Lungs: Clear to auscultation without crackles or wheezes no rhonchi, no deformity. Chest Wall: Chest wall normal expansion with deep inspiration no tenderness and no deformity was found on exam, no costochondral pain or discomfort. Heart: Regular rate and rhythm, S1, S2 normal, no murmur, rub or gallop. Back: Symmetric, no curvature, ROM normal, no CVA tenderness. Abdomen: Soft positive bowel sound no organomegaly slight discomfort in the lower abdominal region area both right and left and mid lower abdominal region not able to feel any mass at this point. Extremities: Extremities normal, atraumatic, no cyanosis or edema. Pulses: 2+ and symmetric. Skin: Skin color, texture, tugor normal, no rashes or lesions. Neurologic: Alert oriented x3 cranial nerves II through XII intact, no motor deficit, no abnormal balance or gait. ASSESSMENT AND PLAN: _Severe abdominal pain: Active subacute with acute diverticulitis and mild colitis without any sign of obstruction no sign of perforation at this point. With the recurrent symptoms patient will be seeing general surgery for possible exploring the idea of intervention at some point with partial colectomy. Patient had UTI was treated with medication for while she is on Unasyn we will hold her Ceftin for now. _Acute diverticulitis with? Of colitis: Continue Unasyn and add metronidazole see general surgery probably explore the idea of having to do colonoscopy probably need partial colectomy at some point. _Hypertension: Remain on lisinopril 10 mg a day we will continue medication _Obstructive sleep apnea: Continue CPAP on regular basis. _History of pulmonary embolism: Continue Eliquis 5 mg twice a day. _Chronic anemia: Stable on iron supplement with ferrous sulfate 325 mg a day still on vitamin B12 supplement. _Chronic depression: Continue Wellbutrin SR 12 mg twice a day _Neuropathy and chronic pain syndrome: Was on Lyrica still using hydrocodone on as-needed basis. _Recent history of UTI: Was on Ceftin. _Gout: Continue allopurinol 100 mg daily. _GI prophylaxis: Will use Protonix 40 mg a day. _DVT prophylaxis: Early mobilization and knee-high ALISHA hose. _CODE STATUS: Full code. Admit patient to the inpatient service for more than 2 night stay. Past Medical History Past Medical History: Blood Disorder, Hearing Disorder / Deafness, Hypertension, Musculoskeletal Disorder, Pulmonary Embolus (PE), Skin Disorder, Sleep Apnea/CPAP/BIPAP Additional Past Medical History / Comment(s): DDD. PE September 2019. hx gout. leiden factor V, rich foot edema,, new rich leg edema( pt to call [facility]), constipation, diverticulosis, eczema, severe urinary incontinece-u ses brief, pt states dx with COVID 09/18/21 History of Any Multi-Drug Resistant Organisms: None Reported Past Surgical History: Bariatric Surgery, Cholecystectomy, Hysterectomy, Tonsillectomy Additional Past Surgical History / Comment(s): cataract sx. Gastric stapling in 1979. Cataract surgery 2015. Colonoscopy June 2020. DEDRA/BSO with umbilical hernia repair in September 2020, cataract surgery Past Anesthesia/Blood Transfusion Reactions: No Reported Reaction Additional Past Anesthesia/Blood Transfusion Reaction / Comment(s): no blood tx hx Past Psychological History: Anxiety, Depression Smoking Status: Never smoker Past Alcohol Use History: None Reported Past Drug Use History: None Reported - Past Family History Mother Family Medical History: Myocardial Infarction ([place]) Father Family Medical History: Myocardial Infarction ([place]) Brother(s) Family Medical History: Deep Vein Thrombosis (DVT), Myocardial Infarction ([place]), Pulmonary Embolus Medications and Allergies Home Medications Medication Instructions Recorded Confirmed Type Apixaban [Eliquis] 5 mg PO DIRECTED 07/29/20 02/14/24 History allopurinoL [Zyloprim] 100 mg PO DIRECTED 07/29/20 02/14/24 History Furosemide [Lasix] 20 mg PO DIRECTED 08/26/21 02/14/24 History Sennosides [Senna] 17.2 mg PO BID 09/18/21 02/14/24 History buPROPion HCL [buPROPion HCL SR] 200 mg PO DIRECTED 09/18/21 02/14/24 History Cyanocobalamin (Vitamin B-12) 1,000 mcg PO DAILY 11/18/22 02/14/24 History [Vitamin B-12] Ferrous Sulfate [Iron (65 MG 325 mg PO DAILY 11/18/22 02/14/24 History Elemental)] Cholecalciferol [Vitamin D3 (125 125 mcg PO DAILY 01/08/23 02/14/24 History Mcg = 5000 Iu)] Pregabalin [Lyrica] 75 mg PO BID 3 Days #6 cap 08/22/23 02/14/24 Rx Betamethasone Dipropionate 1 applic TOPICAL BID PRN 02/14/24 02/14/24 History [Betamethasone Dipropionate 0.05% Cream] Cefuroxime [Ceftin] 250 mg PO BID 02/14/24 02/14/24 History HYDROcodone/APAP 7.5-325MG [[place] 1 tab PO TID PRN 02/14/24 02/14/24 History 7.5-325] Hydrocortisone Cream 1 applic TOPICAL BID PRN 02/14/24 02/14/24 History [Hydrocortisone 2.5% Cream] Ketoconazole 2% Cream [Nizoral 2%] 1 applic TOPICAL BID PRN 02/14/24 02/14/24 History Lutein 10 mg PO DAILY 02/14/24 02/14/24 History Magnesium Citrate 250mg 250 mg PO DAILY 02/14/24 02/14/24 History Multivitamins, Thera [Multivitamin 1 tab PO DAILY 02/14/24 02/14/24 History (formulary)] Nitrofurantoin Macrocrystal 50 mg PO DAILY 02/14/24 02/14/24 History [Macrodantin] Pravastatin Sodium [Pravachol] 40 mg PO DIRECTED 02/14/24 02/14/24 History Triamcinolone 0.1% Cream [Kenalog 1 applicatio TOPICAL DIRECTED 02/14/24 02/14/24 History 0.1% Cream] Venlafaxine HCl [Effexor XR] 75 mg PO DIRECTED 02/14/24 02/14/24 History clonazePAM [KlonoPIN] 0.5 mg PO HS 02/14/24 02/14/24 History lisinopriL [Zestril] 10 mg PO DIRECTED 02/14/24 02/14/24 History Allergies Allergy/AdvReac Type Severity Reaction Status Date / Time itraconazole Allergy IV, Verified 02/14/24 21:35 burning from fingers to shoulder ondansetron [From Zofran] AdvReac severe Verified 02/14/24 21:35 burning @IV site, itching Physical Exam Vitals: Vital Signs Temp Pulse Resp BP Pulse Ox 02/14/24 22:14 81 17 148/87 95 02/14/24 20:58 98.3 F 90 17 124/81 97 02/14/24 15:57 98.2 F 88 18 153/92 98 Intake and Output 02/14/24 02/14/24 02/15/24 14:59 22:59 06:59 Other: Weight 92.986 kg Results CBC & Chem 7: 02/14/24 16:39 02/14/24 16:39 Labs: Abnormal Lab Results - Last 24 Hours (Table) 02/14/24 02/14/24 Range/Units 16:39 16:39 WBC 16.7 H (3.8-10.6) k/uL Neutrophils # (Manual) 10.19 H (1.3-7.7) k/uL Monocytes # (Manual) 5.34 H (0-1.0) k/uL Glucose 121 H (74-99) mg/dL Calcium 10.3 H (8.4-10.2) mg/dL
[2024-02-15 10:01] LABS: HCT 36.3 % (34.0-46.0); MCH 30.9 pg (25.0-35.0); MCHC 33.2 g/dL (31.0-37.0); MCV 93.2 fL (80.0-100.0); Mean Platelet Volume 8.2; Platelet Count 142 k/uL (150-450); RBC 3.89 m/uL (3.80-5.40); RDW 13.3 % (11.5-15.5); WBC 16.6 k/uL (3.8-10.6)
[2024-02-15] MEDS: VIT A,C & E-LUTEIN-MINERALS 1 EACH TAB PO SCH (10:06)
[2024-02-15] MEDS: PREGABALIN 75 MG CAP PO SCH (10:06)
[2024-02-15] MEDS: MULTIVITAMINS, THERA 1 EACH TAB PO SCH (10:06)
[2024-02-15] MEDS: FERROUS SULFATE 325 MG TAB PO SCH (10:06)
[2024-02-15] MEDS: VENLAFAXINE HCL ER 75 MG CAP PO SCH (10:06)
[2024-02-15] MEDS: CYANOCOBALAMIN 500 MCG TAB PO SCH (10:06)
[2024-02-15] MEDS: NITROFURANTOIN MONOHYD/M-CRYST 100 MG CAP PO SCH (10:06)
[2024-02-15] MEDS: CHOLECALCIFEROL 125 MCG (5000 IU) TABLET PO SCH (10:06)
[2024-02-15] MEDS: buPROPion SR 100 MG TABLET.ER PO SCH (10:07)
[2024-02-15] MEDS: SENNOSIDES 8.6 MG TAB PO SCH (10:08)
[2024-02-15 10:21] LABS: ALT 12 U/L (4-34); AST 18 U/L (14-36); African American GFR (CKD) >90 (>60 ml/min/1.73 sqM); Albumin 3.2 g/dL (3.5-5.0); Alkaline Phosphatase 101 U/L (38-126); Anion Gap 9 mmol/L; Blood Urea Nitrogen 8 mg/dL (7-17); Calcium 9.1 mg/dL (8.4-10.2); Carbon Dioxide 23 mmol/L (22-30); Chloride 104 mmol/L (98-107); Glucose 116 mg/dL (74-99); Magnesium 1.6 mg/dL (1.6-2.3); Non-African American GFR(CKD) 85 (>60 ml/min/1.73 sqM); Phosphorus 2.8 mg/dL (2.5-4.5); Sodium 136 mmol/L (137-145); Total Protein 5.7 g/dL (6.3-8.2)
[2024-02-15] MEDS: metroNIDAZOLE-NS PMX 500 MG in SALINE 1 100ML.BAG IVPB SCH (10:23)
[2024-02-15] MEDS: APIXABAN 5 MG TAB PO SCH (10:23)
[2024-02-15] MEDS: allopurinoL 100 MG TAB PO SCH (10:23)
[2024-02-15] MEDS: lisinopriL 10 MG TAB PO SCH (10:24)
[2024-02-15 10:47] LABS: Lymphocytes # (M) 1.66 k/uL (1.0-4.8); Monocytes # (M) 3.65 k/uL (0-1.0); Neutrophils # (M) 11.29 k/uL (1.3-7.7); Neutrophils % (M) 68 %; Nucleated Red Blood Cells 0 /100 WBC (0-0); Total Cells Counted 200
[2024-02-15 10:57] LABS: RBC Morphology Normal
--- NOTE | 2024-02-15 12:46 | P.GSCN ---
History of Present Illness Consult date: 02/15/24 History of present illness: CHIEF COMPLAINT: Abdominal pain HISTORY OF PRESENT ILLNESS: This is a 73-year-old female who presented with abdominal pain nausea and diarrhea. Patient is a poor historian. Patient does report a prior history of diverticulitis. Patient complains of diffuse pain. Her last colonoscopy was in October 2022 results reported sigmoid stricture, external hemorrhoids and severe diverticulosis. 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 CT scan abdomen pelvis had reported colonic diverticular disease. Questionable mild sigmoid pericolonic fat stranding which could indicate mild acute diverticulitis or focal colitis. No acute abnormality reported. Past surgical history includes cholecystectomy, hysterectomy and gastric stapling in 1979, hysterectomy, ventral hernia repair and lysis of adhesions. Last dose of Eliquis on Tuesday02/13/24. PAST MEDICAL HISTORY: See list. PAST SURGICAL HISTORY: See list. MEDICATIONS: See list. ALLERGIES: See list. SOCIAL HISTORY: No illicit drug use. REVIEW OF SYSTEMS: CONSTITUTIONAL: Denies fever or chills. HEENT: Denies blurred vision, vision changes, or eye pain. Denies hemoptysis ENDOCRINE: Denies heat or cold intolerance. CARDIOVASCULAR: Denies chest pain or pressure. RESPIRATORY: No shortness of breath. GASTROINTESTINAL: Please refer to HPI NEURO: Denies history of seizures. PSYCH: No depression or suicidal ideation HEMATOLOGIC: Denies bleeding disorders. LYMPHATIC: The patient denies any lumps and bumps around the neck. GENITOURINARY: Denies any blood in urine or increased urinary frequency. MUSCULOSKELETAL: Denies myalgias. Denies joint swelling. Denies decreased range of motion beyond patients baseline. SKIN: Denies pruitis. Denies rash. PHYSICAL EXAM: VITAL SIGNS: Reviewed GENERAL: Well-developed in no acute distress. HEENT: No sclera icterus. Extraocular movements grossly intact. Moist buccal mucosa. Head is atraumatic, normocephalic. Hears conversational speech. No nasal drainage. NECK: Supple without lymphadenopathy. CHEST: Non-labored respirations and equal bilateral excursions. CARDIOVASCULAR: Palpable 2+ radial pulses. ABDOMEN: Soft. Nondistended. Diffuse tenderness MUSCULOSKELETAL: No clubbing or cyanosis. NEUROLOGIC: No focal or lateralizing signs. Cranial nerves II through XII grossly intact. PSYCH: Appropriate affect. Alert and oriented to person, place and time. SKIN: Well perfused. Good skin turgor. LABORATORY DATA: WBC 16.6 Hgb 12 platelets 142 Sodium 136 potassium 3.0 creatinine 0.70 IMAGING: CT scan abdomen pelvis reports colonic diverticular disease. Question mild sigmoid pericolonic fat stranding which could indicate mild acute diverticulitis or focal colitis ASSESSMENT: 1. Abdominal pain with diarrhea 2. Possible Colitis. Mild sigmoid pericolonic fat stranding which could indicate mild acute diverticulitis or focal colitis noted on CT scan 3. Leukocytosis 4. Hypokalemia PLAN: -Start clear liquid diet -Hold Eliquis for surgical intervention -Recommend colonoscopy during this admission -Change antibiotics to Zosyn and flagy. Discontinue Unasyn -Check stool cultures -Continue IV fluids -Replace potassium Physician Internet Specialist note has been reviewed by physician. Signing provider agrees with the documented findings, assessment, and plan of care. Past Medical History Past Medical History: Blood Disorder, Hearing Disorder / Deafness, Hypertension, Musculoskeletal Disorder, Pulmonary Embolus (PE), Skin Disorder, Sleep Apnea/CPAP/BIPAP Additional Past Medical History / Comment(s): DDD. PE September 2019. hx gout. leiden factor V, rich foot edema,, new rich leg edema( pt to call [facility]), constipation, diverticulosis, eczema, severe urinary incontinece- uses brief, pt states dx with COVID 09/18/21 History of Any Multi-Drug Resistant Organisms: None Reported Past Surgical History: Bariatric Surgery, Cholecystectomy, Hysterectomy, Tonsillectomy Additional Past Surgical History / Comment(s): cataract sx. Gastric stapling in 1979. Cataract surgery 2015. Colonoscopy June 2020. DEDRA/BSO with umbilical hernia repair in September 2020, cataract surgery Past Anesthesia/Blood Transfusion Reactions: No Reported Reaction Additional Past Anesthesia/Blood Transfusion Reaction / Comm: no blood tx hx Past Psychological History: Anxiety, Depression Smoking Status: Never smoker Past Alcohol Use History: None Reported Past Drug Use History: None Reported - Past Family History Mother Family Medical History: Myocardial Infarction ([place]) Father Family Medical History: Myocardial Infarction ([place]) Brother(s) Family Medical History: Deep Vein Thrombosis (DVT), Myocardial Infarction ([place]), Pulmonary Embolus Medications and Allergies Home Medications Medication Instructions Recorded Confirmed Type Apixaban [Eliquis] 5 mg PO BID 07/29/20 02/15/24 History allopurinoL [Zyloprim] 100 mg PO DAILY 07/29/20 02/15/24 History Furosemide [Lasix] 20 mg PO DAILY 08/26/21 02/15/24 History Sennosides [Senna] 17.2 mg PO BID 09/18/21 02/14/24 History buPROPion HCL [buPROPion HCL SR] 200 mg PO BID 09/18/21 02/15/24 History Cyanocobalamin (Vitamin B-12) 1,000 mcg PO DAILY 11/18/22 02/14/24 History [Vitamin B-12] Ferrous Sulfate [Iron (65 MG 325 mg PO DAILY 11/18/22 02/14/24 History Elemental)] Cholecalciferol [Vitamin D3 (125 125 mcg PO DAILY 01/08/23 02/14/24 History Mcg = 5000 Iu)] Pregabalin [Lyrica] 75 mg PO BID 3 Days #6 cap 08/22/23 02/14/24 Rx Betamethasone Dipropionate 1 applic TOPICAL BID PRN 02/14/24 02/14/24 History [Betamethasone Dipropionate 0.05% Cream] Cefuroxime [Ceftin] 250 mg PO BID 02/14/24 02/14/24 History HYDROcodone/APAP 7.5-325MG [[place] 1 tab PO TID PRN 02/14/24 02/14/24 History 7.5-325] Hydrocortisone Cream 1 applic TOPICAL BID PRN 02/14/24 02/14/24 History [Hydrocortisone 2.5% Cream] Ketoconazole 2% Cream [Nizoral 2%] 1 applic TOPICAL BID PRN 02/14/24 02/14/24 History Lutein 10 mg PO DAILY 02/14/24 02/14/24 History Magnesium Citrate 250mg 250 mg PO DAILY 02/14/24 02/14/24 History Multivitamins, Thera [Multivitamin 1 tab PO DAILY 02/14/24 02/14/24 History (formulary)] Nitrofurantoin Macrocrystal 50 mg PO DAILY 02/14/24 02/14/24 History [Macrodantin] Pravastatin Sodium [Pravachol] 40 mg PO HS 02/14/24 02/15/24 History Triamcinolone 0.1% Cream [Kenalog 1 applic TOPICAL BID 02/14/24 02/15/24 History 0.1% Cream] Venlafaxine HCl [Effexor XR] 75 mg PO DAILY 02/14/24 02/15/24 History clonazePAM [KlonoPIN] 0.5 mg PO HS 02/14/24 02/14/24 History lisinopriL [Zestril] 10 mg PO DAILY 02/14/24 02/15/24 History Allergies Allergy/AdvReac Type Severity Reaction Status Date / Time itraconazole Allergy IV, Verified 02/14/24 21:35 burning from fingers to shoulder ondansetron [From Zofran] AdvReac severe Verified 02/14/24 21:35 burning @IV site, itching Surgical - Exam Vital Signs Temp Pulse Resp BP Pulse Ox 98.2 F 88 18 153/92 98 02/14/24 15:57 02/14/24 15:57 02/14/24 15:57 02/14/24 15:57 02/14/24 15:57 Results - Labs 02/15/24 09:04 02/15/24 09:04 Abnormal Lab Results - Last 24 Hours (Table) 02/14/24 02/14/24 02/15/24 Range/Units 16:39 16:39 09:04 WBC 16.7 H 16.6 H (3.8-10.6) k/uL Plt Count 142 L (150-450) k/uL Neutrophils # (Manual) 10.19 H 11.29 H (1.3-7.7) k/uL Monocytes # (Manual) 5.34 H 3.65 H (0-1.0) k/uL Sodium (137-145) mmol/L Potassium (3.5-5.1) mmol/L Glucose 121 H (74-99) mg/dL Calcium 10.3 H (8.4-10.2) mg/dL Total Protein (6.3-8.2) g/dL Albumin (3.5-5.0) g/dL 02/15/24 Range/Units 09:04 WBC (3.8-10.6) k/uL Plt Count (150-450) k/uL Neutrophils # (Manual) (1.3-7.7) k/uL Monocytes # (Manual) (0-1.0) k/uL Sodium 136 L (137-145) mmol/L Potassium 3.0 L (3.5-5.1) mmol/L Glucose 116 H (74-99) mg/dL Calcium (8.4-10.2) mg/dL Total Protein 5.7 L (6.3-8.2) g/dL Albumin 3.2 L (3.5-5.0) g/dL Diabetes panel 02/14/24 02/15/24 Range/Units 16:39 09:04 Sodium 137 136 L (137-145) mmol/L Potassium 3.6 3.0 L (3.5-5.1) mmol/L Chloride 102 104 (98-107) mmol/L Carbon Dioxide 27 23 (22-30) mmol/L BUN 10 8 (7-17) mg/dL Creatinine 0.77 0.70 (0.52-1.04) mg/dL Glucose 121 H 116 H (74-99) mg/dL Calcium 10.3 H 9.1 (8.4-10.2) mg/dL AST 17 18 (14-36) U/L ALT 13 12 (4-34) U/L Alkaline Phosphatase 104 101 (38-126) U/L Total Protein 6.6 5.7 L (6.3-8.2) g/dL Albumin 4.0 3.2 L (3.5-5.0) g/dL Calcium panel 02/14/24 02/15/24 Range/Units 16:39 09:04 Calcium 10.3 H 9.1 (8.4-10.2) mg/dL Phosphorus 2.8 (2.5-4.5) mg/dL Albumin 4.0 3.2 L (3.5-5.0) g/dL Pituitary panel 02/14/24 02/15/24 Range/Units 16:39 09:04 Sodium 137 136 L (137-145) mmol/L Potassium 3.6 3.0 L (3.5-5.1) mmol/L Chloride 102 104 (98-107) mmol/L Carbon Dioxide 27 23 (22-30) mmol/L BUN 10 8 (7-17) mg/dL Creatinine 0.77 0.70 (0.52-1.04) mg/dL Glucose 121 H 116 H (74-99) mg/dL Calcium 10.3 H 9.1 (8.4-10.2) mg/dL Adrenal panel 02/14/24 02/15/24 Range/Units 16:39 09:04 Sodium 137 136 L (137-145) mmol/L Potassium 3.6 3.0 L (3.5-5.1) mmol/L Chloride 102 104 (98-107) mmol/L Carbon Dioxide 27 23 (22-30) mmol/L BUN 10 8 (7-17) mg/dL Creatinine 0.77 0.70 (0.52-1.04) mg/dL Glucose 121 H 116 H (74-99) mg/dL Calcium 10.3 H 9.1 (8.4-10.2) mg/dL Total Bilirubin 1.0 1.0 (0.2-1.3) mg/dL AST 17 18 (14-36) U/L ALT 13 12 (4-34) U/L Alkaline Phosphatase 104 101 (38-126) U/L Total Protein 6.6 5.7 L (6.3-8.2) g/dL Albumin 4.0 3.2 L (3.5-5.0) g/dL
[2024-02-15] MEDS: POTASSIUM CHLORIDE ER 20 MEQ TAB.ER PO SCH (13:39)
[2024-02-15] MEDS: HYDROcodone/APAP 7.5-325MG 1 EACH TAB PO PRN (14:39)
[2024-02-15] MEDS: PIPERACILLIN-TAZOBACTAM 3.375 GM in SODIUM CHLORIDE 0.9% 100 ML IVPB SCH (16:50)
[2024-02-15] MEDS: clonazePAM 0.5 MG TAB PO SCH (20:25)
[2024-02-15] MEDS: PRAVASTATIN SODIUM 40 MG TAB PO SCH (20:26)
--- NOTE | 2024-02-15 22:45 | P.PN ---
Subjective Progress Note Date: 02/15/24 HISTORY OF PRESENT ILLNESS: 73-year-old one of our office patient with history of chronic anemia, obstructive sleep apnea on CPAP, recurrent gout, hypertension, hyperlipidemia, pulmonary embolism on anticoagulation, generalized depression anxiety attacks, recurrent abdominal pain diverticulosis, recurrent UTI, who had a previous history of robotic assisted laparoscopic reduction of incarcerated transverse colon, repair of recurrent incarcerated incisional ventral hernia with lysis of adhesion few times in the past. She also has chronic distal dermatitis, iron deficiency anemia, chronic neuropathy. She presented to the emergency department at [facility] on 02/14/2024 significant abdominal discomfort with nausea and diarrhea or pain and discomfort was in the middle abdominal area she is known history of recurrent UTI and diverticulitis she is seen few subspecialist in the past including gastroenterology and general surgery was treated for lysis of adhesions along with incarcerated hernia in the past successfully. At the time of the presentation to the emergency department laboratory evaluation showed 16.7 of white blood cell with normal hemoglobin and slight left shift, her lipase and amylase were normal, glucose was mildly elevated calcium level was elevated as well. No UA result were done at the time but CAT scan of the abdomen pelvis shows colonic diverticular disease with question of mild sigmoid pericolonic fat stranding which could indicate mild acute diverticulitis or focal colitis. With patient's current history and symptoms send that being admitted to the hospital for acute diverticulitis with UTI not full treatment as an outpatient. From the recurrent symptom patient has with diverticulitis and having extremity flareup last few years the patient probably should explore the possibility of surgical intervention, apparently had seen Dr. Hummel in the past patient panicked not to do surgery at that point. Will consult Dr. Hummel at this time for reevaluation and see if patient need to be rescoped again and need to explore the possibility of partial colectomy. 02/15/2024: She is continue to have significant abdominal pain and discomfort especially in the lower abdominal region and continue to run low-grade te mperature antibiotic will be expanded furthermore to add Flagyl IV. Also will consult general surgery for possible need to have an intervention eventually for partial resection around the area or her diverticulitis is very active. Repeat laboratory today continue to show white blood cell of 16,000 potassium is down to 3.0 will use potassium replacement protocol no effect on the kidney function so far. REVIEW OF SYSTEMS: CONSTITUTIONAL: Well-developed no acute respiratory distress. EYES: No icterus sclerae, no conjunctivitis. EARS, NOSE, MOUTH, THROAT, and FACE: No sore throat, lymphadenopathy, carotid bruits or deformity. RESPIRATORY: No SOB cough or wheezes. CARDIOVASCULAR: No CP, Palpitation, PND, Orthopnea, or angina. GASTROINTESTINAL: Slight abdominal discomfort or mild pain and nausea. GENITOURINARY: Recurrent UTI with no recent stone. INTEGUMENT/BREAST: Negative for any muscular injury with mild osteoarthritis.. HEMATOLOGIC/LYMPHATIC: Negative for bleed or purpura. MUSCULOSKELTAL: Negative for Myalgia or arthralgia. NEURLOGICAL: No LOC, Sz or syncope, blurred vision dizziness or abnormality.. BEHAVIORAL/PSYCH: Negative. ENDOCRINE: Negative. PHYSICAL EXAMINATION: General Appearance: Alert, cooperative, no distress, appears stated age. Neck HEENT: Supple, no lymphadenopathy, no thyroid enlargement, no carotid bruits. Lungs: Clear to auscultation without crackles or wheezes no rhonchi, no deform ity. Chest Wall: Chest wall normal expansion with deep inspiration no tenderness and no deformity was found on exam, no costochondral pain or discomfort. Heart: Regular rate and rhythm, S1, S2 normal, no murmur, rub or gallop. Back: Symmetric, no curvature, ROM normal, no CVA tenderness. Abdomen: Soft positive bowel sound no organomegaly slight discomfort in the lower abdominal region area both right and left and mid lower abdominal region not able to feel any mass at this point. Extremities: Extremities normal, atraumatic, no cyanosis or edema. Pulses: 2+ and symmetric. Skin: Skin color, texture, tugor normal, no rashes or lesions. Neurologic: Alert oriented x3 cranial nerves II through XII intact, no motor deficit, no abnormal balance or gait. ASSESSMENT AND PLAN: _Severe abdominal pain: Active subacute with acute diverticulitis and mild colitis without any sign of obstruction no sign of perforation at this point. With the recurrent symptoms patient will be seeing general surgery for possible exploring the idea of intervention at some point with partial colectomy. _Patient had UTI was treated with medication for while she is on Unasyn we will hold her Ceftin for now. _Subacute pain in the abdominal region area consistent with worsening symptoms despite the CAT scan is not showing much problem patient to stay on pain meds and will be seen general surgery. _Acute diverticulitis with? Of colitis: Continue Unasyn and add metronidazole see general surgery probably explore the idea of having to do colonoscopy probably need partial colectomy at some point. _Hypertension: Remain on lisinopril 10 mg a day we will continue medication _Obstructive sleep apnea: Continue CPAP on regular basis. _History of pulmonary embolism: Continue Eliquis 5 mg twice a day. _Chronic anemia: Stable on iron supplement with ferrous sulfate 325 mg a day still on vitamin B12 supplement. _Chronic depression: Continue Wellbutrin SR 12 mg twice a day _Neuropathy and chronic pain syndrome: Was on Lyrica still using hydrocodone on as-needed basis. _Recent history of UTI: Was on Ceftin. _Gout: Continue allopurinol 100 mg daily. Prognosis: Guarded. Discussion: Will add second antibiotic with Flagyl, consult general surgery for possible need for intervention. Objective - Vital Signs Vital signs: Vital Signs Temp 98.3 F 02/15/24 20:00 Pulse 84 02/15/24 20:00 Resp 16 02/15/24 20:00 BP 101/63 02/15/24 20:00 Pulse Ox 95 02/15/24 20:00 FiO2 Intake & Output 02/15/24 02/15/24 02/16/24 06:59 18:59 06:59 Intake Total 0 Output Total 200 Balance -200 Weight 92.986 kg Intake: Oral 0 Output: Urine 200 Other: # Voids 1 2 # Bowel Movements 1 2 - Labs CBC & Chem 7: 02/15/24 09:04 02/15/24 09:04 Labs: Abnormal Lab Results - Last 24 Hours (Table) 02/15/24 02/15/24 Range/Units 09:04 09:04 WBC 16.6 H (3.8-10.6) k/uL Plt Count 142 L (150-450) k/uL Neutrophils # (Manual) 11.29 H (1.3-7.7) k/uL Monocytes # (Manual) 3.65 H (0-1.0) k/uL Sodium 136 L (137-145) mmol/L Potassium 3.0 L (3.5-5.1) mmol/L Glucose 116 H (74-99) mg/dL Total Protein 5.7 L (6.3-8.2) g/dL Albumin 3.2 L (3.5-5.0) g/dL
[2024-02-16 11:13] LABS: BUN/Creat Ratio 10.88 Ratio (12.00-20.00); Blood Urea Nitrogen 8.7 mg/dL (9.0-27.0); Calcium 9.1 mg/dL (8.7-10.3); Carbon Dioxide 17.9 mmol/L (21.6-31.8); Chloride 102 mmol/L (96-109); Glucose 98 mg/dL (70-110); Potassium 3.3 mmol/L (3.5-5.5); Sodium 135 mmol/L (135-145)
[2024-02-16 12:04] LABS: Basophils # (A) 0.03 X 10*3/uL (0.00-0.10); Basophils % (A) 0.2 %; Eosinophils # (A) 0.15 X 10*3/uL (0.04-0.35); Eosinophils % (A) 0.8 %; HCT 32.9 % (37.2-46.3); HGB 10.7 g/dL (12.0-15.0); Lymphocytes # (A) 1.05 X 10*3/uL (0.90-5.00); Lymphocytes % (A) 5.7 %; MCH 30.3 pg (27.0-32.0); MCHC 32.5 g/dL (32.0-37.0); MCV 93.2 FL (80.0-97.0); Mean Platelet Volume 10.4 FL (9.5-12.2); Monocytes # (A) 4.27 X 10*3/uL (0.20-1.00); Monocytes % (A) 23.2 %; NRBC Per 100 WBC 0 X 10*3/uL (0.00-0.01); Neutrophils # (A) 12.49 X 10*3/uL (1.80-7.70); Platelet Count 134 X 10*3/uL (140-440); RBC 3.53 X 10*6/uL (4.10-5.20); RDW 13.3 % (11.5-14.5); WBC 18.37 X 10*3/uL (4.50-10.00)
[2024-02-16] MEDS: POTASSIUM CHLORIDE ER 20 MEQ TAB.ER PO STA (12:23)
--- NOTE | 2024-02-16 14:06 | P.PN ---
Subjective Progress Note Date: 02/16/24 CHIEF COMPLAINT: Abdominal pain HISTORY OF PRESENT ILLNESS: Patient lying in bed comfortably. She is having diarrhea. Stool cultures have been collected. Afebrile. WBC is up from 16-18 Hgb 10.7 potassium 3.3 PHYSICAL EXAM: VITAL SIGNS: Reviewed GENERAL: Well-developed in no acute distress. HEENT: No sclera icterus. Extraocular movements grossly intact. Moist buccal mucosa. Head is atraumatic, normocephalic. Hears conversational speech. No nasal drainage. NECK: Supple without lymphadenopathy. CHEST: Non-labored respirations and equal bilateral excursions. CARDIOVASCULAR: Palpable 2+ radial pulses. ABDOMEN: Soft. Nondistended. Diffuse tenderness MUSCULOSKELETAL: No clubbing or cyanosis. NEUROLOGIC: No focal or lateralizing signs. Cranial nerves II through XII grossly intact. PSYCH: Appropriate affect. Alert and oriented to person, place and time. SKIN: Well perfused. Good skin turgor. ASSESSMENT: 1. Abdominal pain with diarrhea 2. Possible Colitis. Mild sigmoid pericolonic fat stranding which could indicate mild acute diverticulitis or focal colitis noted on CT scan 3. Leukocytosis 4. Hypokalemia PLAN: -Patient scheduled for colonoscopy on Tuesday, February 20, [address] Hummel -Continue antibiotics -Continue clear liquid diet -Follow-up on stool culture results -Continue to replace potassium -check Mg level to due continuous hypokalemia -Continue antibiotics -Eliquis needs to be held for at least 48hours before colonoscopy Physician Layer Off note has been reviewed by physician. Signing provider agrees with the documented findings, assessment, and plan of care. Objective - Vital Signs Vital signs: Vital Signs Temp 99.7 F H 02/16/24 07:45 Pulse 92 02/16/24 07:45 Resp 19 02/16/24 07:45 BP 120/72 02/16/24 07:45 Pulse Ox 96 02/16/24 07:45 FiO2 Intake & Output 02/15/24 02/16/24 02/16/24 18:59 06:59 18:59 Intake Total 590 Output Total 1 Balance 589 Intake: Oral 590 Output: Stool 1 Other: Voiding Method Bedside Commode # Voids 2 1 # Bowel Movements 2 1 - Labs CBC & Chem 7: 02/16/24 07:01 02/16/24 07:01 Labs: Abnormal Lab Results - Last 24 Hours (Table) 02/16/24 Range/Units 07:01 Potassium 3.3 L (3.5-5.5) mmol/L Carbon Dioxide 17.9 L (21.6-31.8) mmol/L Anion Gap 15.10 H (4.00-12.00) mmol/L BUN 8.7 L (9.0-27.0) mg/dL BUN/Creatinine Ratio 10.88 L (12.00-20.00) Ratio Microbiology - Last 24 Hours (Table) 02/14/24 21:45 Blood Culture - Preliminary Blood 02/14/24 21:30 Blood Culture - Preliminary Blood
[2024-02-16] MEDS: ACETAMINOPHEN TAB 500 MG TAB PO PRN (16:40)
--- NOTE | 2024-02-17 06:26 | P.PN ---
Subjective Progress Note Date: 02/16/24 HISTORY OF PRESENT ILLNESS: 73-year-old one of our office patient with history of chronic anemia, obstructive sleep apnea on CPAP, recurrent gout, hypertension, hyperlipidemia, pulmonary embolism on anticoagulation, generalized depression anxiety attacks, recurrent abdominal pain diverticulosis, recurrent UTI, who had a previous history of robotic assisted laparoscopic reduction of incarcerated transverse colon, repair of recurrent incarcerated incisional ventral hernia with lysis of adhesion few times in the past. She also has chronic distal dermatitis, iron deficiency anemia, chronic neuropathy. She presented to the emergency department at [facility] on 02/14/2024 significant abdominal discomfort with nausea and diarrhea or pain and discomfort was in the middle abdominal area she is known history of recurrent UTI and diverticulitis she is seen few subspecialist in the past including gastroenterology and general surgery was treated for lysis of adhesions along with incarcerated hernia in the past successfully. At the time of the presentation to the emergency department laboratory evaluation showed 16.7 of white blood cell with normal hemoglobin and slight left shift, her lipase and amylase were normal, glucose was mildly elevated calcium level was elevated as well. No UA result were done at the time but CAT scan of the abdomen pelvis shows colonic diverticular disease with question of mild sigmoid pericolonic fat stranding which could indicate mild acute diverticulitis or focal colitis. With patient's current history and symptoms send that being admitted to the hospital for acute diverticulitis with UTI not full treatment as an outpatient. From the recurrent symptom patient has with diverticulitis and having extremity flareup last few years the patient probably should explore the possibility of surgical intervention, apparently had seen Dr. Hummel in the past patient panicked not to do surgery at that point. Will consult Dr. Hummel at this time for reevaluation and see if patient need to be rescoped again and need to explore the possibility of partial colectomy. 02/15/2024: She is continue to have significant abdominal pain and discomfort especially in the lower abdominal region and continue to run low-grade te mperature antibiotic will be expanded furthermore to add Flagyl IV. Also will consult general surgery for possible need to have an intervention eventually for partial resection around the area or her diverticulitis is very active. Repeat laboratory today continue to show white blood cell of 16,000 potassium is down to 3.0 will use potassium replacement protocol no effect on the kidney function so far. 02/16/2024: She continues to have significant abdominal pain is not improving as fast as expected. She was kept n.p.o. for potential testing patient is not going for colonoscopy till Tuesday she will start on antibiotics, clear liquid diet will advance gradually, continue electrolyte balance and replacement for now we will hold Eliquis for 48 hours prior to her colonoscopy. Patient still showing significant amount of discomfort does not reflect with seen with her CAT scan will continue at least aggressive current management. All cultures remain negative but her white blood cell continue to be quite elevated with significant thrombocytopenia affected by pocket infection creatinine remained 8.8 with bun 15.1. REVIEW OF SYSTEMS: CONSTITUTIONAL: Well-developed no acute respiratory distress. EYES: No icterus sclerae, no conjunctivitis. EARS, NOSE, MOUTH, THROAT, and FACE: No sore throat, lymphadenopathy, carotid bruits or deformity. RESPIRATORY: No SOB cough or wheezes. CARDIOVASCULAR: No CP, Palpitation, PND, Orthopnea, or angina. GASTROINTESTINAL: Slight abdominal discomfort or mild pain and nausea. GENITOURINARY: Recurrent UTI with no recent stone. INTEGUMENT/BREAST: Negative for any muscular injury with mild osteoarthritis.. HEMATOLOGIC/LYMPHATIC: Negative for bleed or purpura. MUSCULOSKELTAL: Negative for Myalgia or arthralgia. NEURLOGICAL: No LOC, Sz or syncope, blurred vision dizziness or abnormality.. BEHAVIORAL/PSYCH: Negative. ENDOCRINE: Negative. PHYSICAL EXAMINATION: General Appearance: Alert, cooperative, no distress, appears stated age. Neck HEENT: Supple, no lymphadenopathy, no thyroid enlargement, no carotid bruits. Lungs: Clear to auscultation without crackles or wheezes no rhonchi, no deformity. Chest Wall: Chest wall normal expansion with deep inspiration no tenderness and no deformity was found on exam, no costochondral pain or discomfort. Heart: Regular rate and rhythm, S1, S2 normal, no murmur, rub or gallop. Back: Symmetric, no curvature, ROM normal, no CVA tenderness. Abdomen: Soft positive bowel sound no organomegaly slight discomfort in the lower abdominal region area both right and left and mid lower abdominal region not able to feel any mass at this point. Extremities: Extremities normal, atraumatic, no cyanosis or edema. Pulses: 2+ and symmetric. Skin: Skin color, texture, tugor normal, no rashes or lesions. Neurologic: Alert oriented x3 cranial nerves II through XII intact, no motor deficit, no abnormal balance or gait. ASSESSMENT AND PLAN: _Severe abdominal pain: I believe this is more acute diverticulitis with the white blood cell still elevated patient almost on the verge of perforation w ithout aggressive management, further testing including colonoscopy the patient specially with her recurrent symptoms might benefit from having to have a plan for partial colectomy sooner than expected.. _Patient had UTI was treated with medication for while she is on Unasyn we will hold her Ceftin for now. _Severe abdominal pain: Consistent with worsening symptoms despite the CAT scan is not showing much problem patient to stay on pain meds and will be seen general surgery. _Acute diverticulitis with? Of colitis: Continue Unasyn and add metronidazole see general surgery probably explore the idea of having to do colonoscopy probably need partial colectomy at some point. _Hypertension: Remain on lisinopril 10 mg a day we will continue medication _Obstructive sleep apnea: Continue CPAP on regular basis. _History of pulmonary embolism: Continue Eliquis 5 mg twice a day. _Chronic anemia: Stable on iron supplement with ferrous sulfate 325 mg a day still on vitamin B12 supplement. _Chronic depression: Continue Wellbutrin SR 12 mg twice a day _Neuropathy and chronic pain syndrome: Was on Lyrica still using hydrocodone on as-needed basis. _Recent history of UTI: Was on Ceftin. _Gout: Continue allopurinol 100 mg daily. Prognosis: Guarded. Discussion: Continue Flagyl beside her Unasyn at this point, general surgery planning to do colonoscopy when patient is a bit more stable may be this will be delayed till she is off Eliquis for 2 days and resting her on the weekend on cl ear liquid diet till she settle down colonoscopy can be done on Tuesday and after colonoscopy if needed probably plan to do partial colectomy sometimes early next week. Objective - Vital Signs Vital signs: Vital Signs Temp 98.4 F 02/16/24 02:00 Pulse 93 02/16/24 02:00 Resp 16 02/16/24 02:00 BP 135/69 02/16/24 02:00 Pulse Ox 96 02/16/24 02:00 FiO2 Intake & Output 02/15/24 02/15/24 02/16/24 06:59 18:59 06:59 Intake Total 0 Output Total 200 1 Balance -200 -1 Weight 92.986 kg Intake: Oral 0 Output: Urine 200 Stool 1 Other: Voiding Method Bedside Commode # Voids 1 2 2 # Bowel Movements 1 2 - Labs CBC & Chem 7: 02/16/24 07:01 02/16/24 07:01 Labs: Abnormal Lab Results - Last 24 Hours (Table) 02/15/24 02/15/24 Range/Units 09:04 09:04 WBC 16.6 H (3.8-10.6) k/uL Plt Count 142 L (150-450) k/uL Neutrophils # (Manual) 11.29 H (1.3-7.7) k/uL Monocytes # (Manual) 3.65 H (0-1.0) k/uL Sodium 136 L (137-145) mmol/L Potassium 3.0 L (3.5-5.1) mmol/L Glucose 116 H (74-99) mg/dL Total Protein 5.7 L (6.3-8.2) g/dL Albumin 3.2 L (3.5-5.0) g/dL Microbiology - Last 24 Hours (Table) 02/14/24 21:45 Blood Culture - Preliminary Blood 02/14/24 21:30 Blood Culture - Preliminary Blood
[2024-02-17 10:21] LABS: Basophils # (A) 0.05 X 10*3/uL (0.00-0.10); Basophils % (A) 0.2 %; Eosinophils # (A) 0.17 X 10*3/uL (0.04-0.35); Eosinophils % (A) 0.8 %; HCT 30.8 % (37.2-46.3); HGB 9.9 g/dL (12.0-15.0); Lymphocytes % (A) 4.9 %; MCH 29.6 pg (27.0-32.0); MCHC 32.1 g/dL (32.0-37.0); MCV 92.2 FL (80.0-97.0); Mean Platelet Volume 10.6 FL (9.5-12.2); Monocytes # (A) 5.11 X 10*3/uL (0.20-1.00); Monocytes % (A) 22.7 %; NRBC Per 100 WBC 0 X 10*3/uL (0.00-0.01); Neutrophils # (A) 15.72 X 10*3/uL (1.80-7.70); Neutrophils % (A) 69.8 %; Platelet Count 134 X 10*3/uL (140-440); RBC 3.34 X 10*6/uL (4.10-5.20); RDW 13.2 % (11.5-14.5); WBC 22.51 X 10*3/uL (4.50-10.00)
[2024-02-17 10:58] LABS: BUN/Creat Ratio 9.14 Ratio (12.00-20.00); Blood Urea Nitrogen 6.4 mg/dL (9.0-27.0); Chloride 107 mmol/L (96-109); Glucose 86 mg/dL (70-110); Potassium 3.1 mmol/L (3.5-5.5); Sodium 138 mmol/L (135-145)
[2024-02-17 10:59] LABS: Calcium 8.6 mg/dL (8.7-10.3); Magnesium 1.5 mg/dL (1.5-2.4)
--- NOTE | 2024-02-17 14:40 | CT ---
EXAMINATION TYPE: CT abdomen pelvis wo con CT DLP: 1140.6 mGycm, Automated exposure control for dose reduction was used. DATE OF EXAM: 02/17/2024 2:22 PM COMPARISON: CT abdomen pelvis from 02/14/2024 CLINICAL INDICATION:Female, 73 years old with history of increase abdominal pain, elevated WBC; lower abdominal pain diarrhea TECHNIQUE: Axial CT abdomen pelvis wo con;Sagittal and coronal reformats were created on a separate workstation. Contrast used: mL of , (none if empty) Oral contrast used: without Oral Contrast (none if empty) FINDINGS: LOWER CHEST: Unremarkable ABDOMEN LIVER: Unremarkable GALLBLADDER AND BILE DUCTS: Cholecystectomy clips in the gallbladder fossa. No intrahepatic biliary d uctal dilatation. PANCREAS: Unremarkable. SPLEEN: Unremarkable. ADRENAL GLANDS: Unremarkable. KIDNEYS AND URETERS: No evidence of hydronephrosis or renal calculus. The ureters are unremarkable. PELVIS BLADDER: Unremarkable REPRODUCTIVE: Unremarkable. ABDOMEN & PELVIS STOMACH AND BOWEL: Stomach and duodenum are unremarkable. Normal appendix identified. No evidence of bowel obstruction. Without IV and oral contrast, cannot exclude diverticulosis or diverticulitis PERITONEUM/RETROPERITONEUM: No evidence of pneumoperitoneum or free fluid. VASCULATURE: No evidence of aortic aneurysm. MUSCULOSKELETAL: No acute osseous abnormalities LYMPH NODES: No gross evidence for lymphadenopathy. SOFT TISSUE/ABDOMINAL WALL: Unremarkable IMPRESSION: 1. Acute process is not definitely appreciated. 2. : Stomach and duodenum are unremarkable. Normal appendix identified. No evidence of bowel obstru ction. Without IV and oral contrast, cannot exclude diverticulosis or diverticulitis
--- NOTE | 2024-02-17 15:36 | P.PN ---
Subjective Progress Note Date: 02/17/24 CHIEF COMPLAINT: Generalized abdominal pain HISTORY OF PRESENT ILLNESS: The patient is a 73-year-old female with prolonged antibiotic management for chronic urinary tract infection for over 1 year. Gabby junior presented with acute onset abdominal pain. Today, patient reports worsening diarrhea. She reports generalized abdominal pain. She reports some improvement from yesterday. She reports low intake. She was placed n.p.o. yesterday due to increasing abdominal pain with meals. Discussion with the patient's via telephone includes his report that she has increased confusion. ROS: No new chest pain. No productive sputum. Prior temperature 102.5 within 24 hours of admission. PHYSICAL EXAM: VITAL SIGNS: Reviewed CONSTITUTIONAL: Well developed and in no acute distress. EYES: Conjuctivae without sclera icterus. Extraocular movements grossly intact. HEAD, EARS, NOSE, THROAT: Moist buccal mucosa. Head is atraumatic, normocephalic. Hears conversational speech. No nasal drainage. RESPIRATORY: Non-labored respirations and equal bilateral excursions. CARDIOVASCULAR: Palpable 2+ radial pulses. ABDOMEN: No peritonitis. Generalized tenderness. MUSCULOSKELETAL: No gross deformity of the lower extremities noted. No clubbing. No cyanosis. SKIN: Good skin turgor. Well perfused. NEUROLOGIC: Cranial nerves II through XII grossly intact. No focal or lateralizing signs. PSYCH: Alert to self. Patient cannot articulate today's date. CLINICAL LABS: Reviewed. WBC trending upward 18,000 22,000, leukocytosis. C. difficile negative. STUDIES: Repeat CT abdomen pelvis from time of admission obtained due to increased abdominal pain. Repeat imaging without contrast demonstrated persistent colitis involving sigmoid colon including descending colon. No free air or perforation identified. ASSESSMENT: 1. Generalized abdominal pain with diarrhea for risk for colitis 2. Personal history of diverticulitis 3. Chronic antibiotic management for chronic urinary tract infection 4. Sepsis on admission PLAN: 1. Patient has minimal improvement on current antibiotics. As she has recent history of multiple antibiotics administration in over 6 months to 1 year, antib iotic resistance is suspected. Consultation to infectious disease advised. 2. Keep n.p.o. status except ice chips and popsicles. May benefit from PICC line with TPN for prolonged n.p.o. status anticipated for over 3 days. 3. Care plan discussed with patient's family her including risk for surgical intervention for worsening clinical course. At this time, patient reports she is stable and wants to hold off from surgery. Objective - Vital Signs Vital signs: Vital Signs Temp 98.2 F 02/17/24 12:36 Pulse 74 02/17/24 12:36 Resp 18 02/17/24 12:36 BP 138/76 02/17/24 12:36 Pulse Ox 96 02/17/24 12:36 FiO2 Intake & Output 02/16/24 02/17/24 02/17/24 18:59 06:59 18:59 Output Total 1 Balance -1 Output: Stool 1 Other: Voiding Method Bedside Commode Bedside Commode Bedside Commode # Voids 1 # Bowel Movements 1 1 1 - Labs CBC & Chem 7: 02/17/24 07:23 02/17/24 07:23 Labs: Abnormal Lab Results - Last 24 Hours (Table) 02/17/24 02/17/24 Range/Units 07:23 07:23 WBC 22.51 H (4.50-10.00) X 10*3/uL RBC 3.34 L (4.10-5.20) X 10*6/uL Hgb 9.9 L (12.0-15.0) g/dL Hct 30.8 L (37.2-46.3) % Plt Count 134 L (140-440) X 10*3/uL Immature Gran # 0.36 H (0.00-0.04) X 10*3/uL Neutrophils # 15.72 H (1.80-7.70) X 10*3/uL Monocytes # 5.11 H (0.20-1.00) X 10*3/uL Potassium 3.1 L (3.5-5.5) mmol/L Carbon Dioxide 19.0 L (21.6-31.8) mmol/L BUN 6.4 L (9.0-27.0) mg/dL BUN/Creatinine Ratio 9.14 L (12.00-20.00) Ratio Calcium 8.6 L (8.7-10.3) mg/dL Microbiology - Last 24 Hours (Table) 02/14/24 21:45 Blood Culture - Preliminary Blood 02/14/24 21:30 Blood Culture - Preliminary Blood
--- NOTE | 2024-02-17 15:39 | P.PN ---
Progress Note - Text Progress Note Date: 02/17/24 Contacted patient's regarding results of CT scan imaging. No diffuse free air perforation identified. Consultation to infectious disease for antibiotic management at patient appears to be resistant to current antibiotic treatment. At this time, colonoscopy on hold due to severity of abdominal pain. Stool cultures are pending at this time.
[2024-02-17] MEDS: VANCOMYCIN 125 MG CAPSULE PO SCH (17:43)
[2024-02-17] MEDS: LACTATED RINGERS 1,000 ML IV SCH (21:35)
--- NOTE | 2024-02-18 08:22 | P.CONS ---
History of Present Illness - Reason for Consult Consult date: 02/17/24 Severe colitis history of long-term antibiotic use Requesting physician: Lee Ann Hummel - Chief Complaint Abdominal pain and diarrhea x few days - History of Present Illness Patient is a 74-year-old female with a past medical history significant for hypertension history of PE sleep apnea factor V Leiden deficiency patient apparently has been on multiple courses of antibiotic for UTI with the patient mention she is asymptomatic from it patient present to the hospital 3 days ago for evaluation of abdominal pain and diarrhea and this patient symptom has been going on for few days before presentation to the hospital patient was complaining of diffuse abdominal pain moderate intensity without any radiation with associated diarrhea in this patient who did have multiple loose stools patient denies having any blood or mucus in the stool did have some nausea but no vomiting patient on presentation to the hospital was afebrile however she did spike a fever of 102 degree for night on 02/15/2024 and did have a low-grade fever yesterday afternoon the patient is afebrile this morning patient did have a white count of 16.7 on admission which is up to 22.51 creatinine has been normal her liver enzymes are normal, patient did have a CT abdominal pelvis on admission colonic diverticular disease question of mild sigmoid pericolonic fat stranding could indicate mild acute diverticulitis or focal colitis patient has been treated with the Zosyn however the patient did have persistent and worsening diarrhea and also noted to have worsening white count prompting this consultation Review of Systems Positive point and negatives has been mentioned in the HPI, complete review of systems was performed and all other systems are negative Past Medical History Past Medical History: Blood Disorder, Hearing Disorder / Deafness, Hypertension, Musculoskeletal Disorder, Pulmonary Embolus (PE), Skin Disorder, Sleep Apnea/CPAP/BIPAP Additional Past Medical History / Comment(s): DDD. PE September 2019. hx gout. leiden factor V, rich foot edema,, new rich leg edema( pt to [facility]), constipation, diverticulosis, eczema, severe urinary incontinece- uses brief, pt states dx with COVID 09/18/21 History of Any Multi-Drug Resistant Organisms: None Reported Past Surgical History: Bariatric Surgery, Cholecystectomy, Hysterectomy, Tonsillectomy Additional Past Surgical History / Comment(s): cataract sx. Gastric stapling in 1979. Cataract surgery 2015. Colonoscopy June 2020. DEDRA/BSO with umbilical hernia repair in September 2020, cataract surgery Past Anesthesia/Blood Transfusion Reactions: No Reported Reaction Additional Past Anesthesia/Blood Transfusion Reaction / Comm: no blood tx hx Past Psychological History: Anxiety, Depression Smoking Status: Never smoker Past Alcohol Use History: None Reported Past Drug Use History: None Reported - Past Family History Mother Family Medical History: Myocardial Infarction (LA) Father Family Medical History: Myocardial Infarction (LA) Brother(s) Family Medical History: Deep Vein Thrombosis (DVT), Myocardial Infarction (LA), Pulmonary Embolus Medications and Allergies Home Medications Medication Instructions Recorded Confirmed Type Apixaban [Eliquis] 5 mg PO BID 07/29/20 02/15/24 History allopurinoL [Zyloprim] 100 mg PO DAILY 07/29/20 02/15/24 History Furosemide [Lasix] 20 mg PO DAILY 08/26/21 02/15/24 History Sennosides [Senna] 17.2 mg PO BID 09/18/21 02/14/24 History buPROPion HCL [buPROPion HCL SR] 200 mg PO BID 09/18/21 02/15/24 History Cyanocobalamin (Vitamin B-12) 1,000 mcg PO DAILY 11/18/22 02/14/24 History [Vitamin B-12] Ferrous Sulfate [Iron (65 MG 325 mg PO DAILY 11/18/22 02/14/24 History Elemental)] Cholecalciferol [Vitamin D3 (125 125 mcg PO DAILY 01/08/23 02/14/24 History Mcg = 5000 Iu)] Betamethasone Dipropionate 1 applic TOPICAL BID PRN 02/14/24 02/14/24 History [Betamethasone Dipropionate 0.05% Cream] Hydrocortisone Cream 1 applic TOPICAL BID PRN 02/14/24 02/14/24 History [Hydrocortisone 2.5% Cream] Ketoconazole 2% Cream [Nizoral 2%] 1 applic TOPICAL BID PRN 02/14/24 02/14/24 History Lutein 10 mg PO DAILY 02/14/24 02/14/24 History Multivitamins, Thera [Multivitamin 1 tab PO DAILY 02/14/24 02/14/24 History (formulary)] Pravastatin Sodium [Pravachol] 40 mg PO HS 02/14/24 02/15/24 History Triamcinolone 0.1% Cream [Kenalog 1 applic TOPICAL BID 02/14/24 02/15/24 History 0.1% Cream] Venlafaxine HCl [Effexor XR] 75 mg PO DAILY 02/14/24 02/15/24 History lisinopriL [Zestril] 10 mg PO DAILY 02/14/24 02/15/24 History Cholestyramine (with Sugar) 4 gm PO BID@1000,2100 #60 packet 02/24/24 Rx [Questran Packet] Fidaxomicin [Dificid] 200 mg PO BID #10 tab 02/24/24 Rx HYDROcodone/APAP 7.5-325MG [Grimes 1 tab PO TID PRN #21 tab 02/24/24 Rx 7.5-325] L.acidoph,Paracasei, B.lactis 1 each PO AC-BID #60 capsule 02/24/24 Rx [Probiotic] Magnesium Oxide [Mag-Ox] 400 mg PO DAILY #30 tablet 02/24/24 Rx Potassium Chloride [Klor-Con 10 ER] 10 meq PO DAILY #30 02/24/24 Rx Pregabalin [Lyrica] 75 mg PO BID 3 Days #6 cap 02/24/24 Rx clonazePAM [KlonoPIN] 0.5 mg PO HS #7 tab 02/24/24 Rx Allergies Allergy/AdvReac Type Severity Reaction Status Date / Time itraconazole Allergy IV, Verified 02/14/24 21:35 burning from fingers to shoulder ondansetron [From Zofran] AdvReac severe Verified 02/14/24 21:35 burning @IV site, itching Physical Exam Vitals: Vital Signs Temp Pulse Pulse Resp BP BP Pulse Ox 02/17/24 12:36 98.2 F 74 18 138/76 96 02/17/24 08:45 97.9 F 81 93 16 127/76 96 02/17/24 02:00 97.9 F 92 16 146/80 97 02/16/24 20:48 97.8 F 82 16 101/61 97 02/16/24 17:03 97.2 F L 92 20 134/76 Intake and Output 02/17/24 02/17/24 02/17/24 06:59 14:59 22:59 Output Total 1 Balance -1 Output: Stool 1 Other: Voiding Method Bedside Commode # Voids 1 # Bowel Movements 1 1 GENERAL DESCRIPTION: Elderly female lying in bed, no distress. No tachypnea or accessory muscle of respiration use. HEENT: Shows Pallor , no scleral icterus. Oral mucous membrane is dry. No pharyngeal erythema or thrush NECK: Trachea central, no thyromegaly. LUNGS: Unlabored breathing. Clear to auscultation anteriorly. No wheeze or crackle. HEART: S1, S2, regular rate and rhythm. No loud murmur ABDOMEN: Soft, mild tenderness EXTREMITIES: No edema of feet. SKIN: No rash, no masses palpable. NEUROLOGICAL: The patient is awake, alert, oriented x3, mood and affect normal. Results CBC & Chem 7: 02/24/24 06:25 02/24/24 06:25 Labs: Abnormal Lab Results - Last 24 Hours (Table) 02/17/24 02/17/24 Range/Units 07:23 07:23 WBC 22.51 H (4.50-10.00) X 10*3/uL RBC 3.34 L (4.10-5.20) X 10*6/uL Hgb 9.9 L (12.0-15.0) g/dL Hct 30.8 L (37.2-46.3) % Plt Count 134 L (140-440) X 10*3/uL Immature Gran # 0.36 H (0.00-0.04) X 10*3/uL Neutrophils # 15.72 H (1.80-7.70) X 10*3/uL Monocytes # 5.11 H (0.20-1.00) X 10*3/uL Potassium 3.1 L (3.5-5.5) mmol/L Carbon Dioxide 19.0 L (21.6-31.8) mmol/L BUN 6.4 L (9.0-27.0) mg/dL BUN/Creatinine Ratio 9.14 L (12.00-20.00) Ratio Calcium 8.6 L (8.7-10.3) mg/dL Microbiology - Last 24 Hours (Table) 02/14/24 21:45 Blood Culture - Preliminary Blood 02/14/24 21:30 Blood Culture - Preliminary Blood Assessment and Plan (1) Colitis Status: Acute Code(s): K52.9 - NONINFECTIVE GASTROENTERITIS AND COLITIS, UNSPECIFIED SNOMED Code(s): 28444403 (2) Leukocytosis Status: Acute Code(s): D72.829 - ELEVATED WHITE BLOOD CELL COUNT, UNSPECIFIED SNOMED Code(s): 955474200 Plan: 1patient presented to hospital with abdominal pain and extensive diarrhea and this patient has been extensive course of oral antibiotic and outpatient for UTI CT has not been very clear as for his reporting with questionable diverticulitis versus colitis however clinically patient is likely behaving as C. difficile colitis 2-we will check a stool for C. difficile PCR 3-we will add oral vancomycin empirically while waiting for the workup to be completed We will follow on clinical condition and cultures to further adjust medication if needed Thank you for this consultation we will follow the patient along with you Dictation was produced using [employer] dictation software. please excuse any grammatical, word or spelling errors. Time with Patient: Greater than 30
--- NOTE | 2024-02-18 12:55 | P.PN ---
Subjective Progress Note Date: 02/18/24 * 73-year-old one of our office patient with history of chronic anemia, obstructive sleep apnea on CPAP, recurrent gout, hypertension, hyperlipidemia, pulmonary embolism on anticoagulation, generalized depression anxiety attacks, recurrent abdominal pain diverticulosis, recurrent UTI, who had a previous history of robotic assisted laparoscopic reduction of incarcerated transverse colon, repair of recurrent incarcerated incisional ventral hernia with lysis of adhesion few times in the past. She also has chronic distal dermatitis, iron deficiency anemia, chronic neuropathy. * She presented to the emergency department at [facility] on 02/14/2024 significant abdominal discomfort with nausea and diarrhea or pain and discomfort was in the middle abdominal area she is known history of recurrent UTI and diverticulitis she is seen few subspecialist in the past including gastroenterology and general surgery was treated for lysis of adhesions along with incarcerated hernia in the past successfully. At the time of the presentation to the emergency department laboratory evaluation showed 16.7 of white blood cell with normal hemoglobin and slight left shift, her lipase and amylase were normal, glucose was mildly elevated calcium level was elevated as well. No UA result were done at the time but CAT scan of the abdomen pelvis shows colonic diverticular disease with question of mild sigmoid pericolonic fat stranding which could indicate mild acute diverticulitis or focal colitis. With patient's current history and symptoms send that being admitted to the hospital for acute diverticulitis with UTI not full treatment as an outpatient. * From the recurrent symptom patient has with diverticulitis and having extremity flareup last few years the patient probably should explore the possibility of surgical intervention, apparently had seen Dr. Hummel in the past patient panicked not to do surgery at that point. Will consult Dr. Hummel at this time for reevaluation and see if patient need to be rescoped again and need to explore the possibility of partial colectomy. * 02/15/2024: She is continue to have significant abdominal pain and discomfort especially in the lower abdominal region and continue to run low-grade temperature antibiotic will be expanded furthermore to add Flagyl IV. Also will consult general surgery for possible need to have an intervention eventually for partial resection around the area or her diverticulitis is very active. Repeat laboratory today continue to show white blood cell of 16,000 potassium is down to 3.0 will use potassium replacement protocol no effect on the kidney function so far. * 02/16/2024: She continues to have significant abdominal pain is not improving as fast as expected. She was kept n.p.o. for potential testing patient is not going for colonoscopy till Tuesday she will start on antibiotics, clear liquid diet will advance gradually, continue electrolyte balance and replacement for now we will hold Eliquis for 48 hours prior to her colonoscopy. Patient still showing significant amount of discomfort does not reflect with seen with her CAT scan will continue at least aggressive current management. All cultures remain negative but her white blood cell continue to be quite elevated with significant thrombocytopenia affected by pocket infection creatinine remained 8.8 with bun 15.1. * 02/18/24 : Dr Quigley assumed care : Patient seen and evaluated bedside, vitals reviewed, CBC and basic metabolic panel pending for gastrointestinal bleed not initiated IV heparin at this point due to concern for lower GI bleed and drop in hemoglobin from 13-9, will continue to monitor. If hemoglobin stabilizes we will start patient on heparin without bolus to protect from recurrent pulm embolism. Use SCDs bilateral lower extreme PHYSICAL EXAMINATION: GENERAL: The patient is alert and oriented x3, not in any acute distress. Well developed, well nourished. HEENT: Pupils are round and equally reacting to light. EOMI. No scleral icterus. No conjunctival pallor. Normocephalic, atraumatic. No pharyngeal erythema. No thyromegaly. CARDIOVASCULAR: S1 and S2 present. No murmurs, rubs, or gallops. PULMONARY: Chest is clear to auscultation, no wheezing or crackles. ABDOMEN: Soft, nontender, nondistended, normoactive bowel sounds. No palpable organomegaly. MUSCULOSKELETAL: No joint swelling or deformity. EXTREMITIES: No cyanosis, clubbing, or pedal edema. NEUROLOGICAL: Gross neurological examination did not reveal any focal deficits. SKIN: No rashes. Assessment and plan * Abdominal pain with suspected diverticulitis * Hypertension obstructive sleep apnea * History of pulm embolism * Chronic anemia * History of urinary tract infection * History of gout * Consult obtained from general surgery, infectious disease * Plans to suspected diverticulitis continue IV antibiotics on Zosyn and Flagyl, general surgery consulted will plan colonoscopy during this hospitalization * In regards to history of pulm embolism ,Eliquis on hold in anticipation of intervention. Continue patient on clear liquid diet. SCDs lower extremity ordered * Regards to anemia continue to follow-up on H&H, anticoagulation on hold follow-up on CBC * Regards to urinary tract infection, patient on Macrobid, infectious is following Objective - Vital Signs Vital signs: Vital Signs Temp 97.5 F L 02/18/24 07:52 Pulse 75 02/18/24 07:52 Resp 17 02/18/24 07:52 BP 120/72 02/18/24 07:52 Pulse Ox 98 02/18/24 07:52 FiO2 Intake & Output 02/17/24 02/18/24 02/18/24 18:59 06:59 18:59 Intake Total 2930 Output Total 1 Balance -1 2930 Intake: Intake, IV Titration 1630 Amount Piperacillin-Tazobactam 3 100 .375 gm In Sodium Chloride 0.9% 100 ml @ 25 mls/hr IVPB Q8HR [facility] Rx# :[id number] Sodium Chloride 0.9% 1, 1430 000 ml @ 130 mls/hr IV . Q7H42M [facility] Rx#:[id number] metroNIDAZOLE-NS PMX 500 100 mg In Saline 1 100ml.bag @ 100 mls/hr IVPB Q8HR [facility] Rx#:[id number] Oral 1300 Output: Stool 1 Other: Voiding Method Bedside Commode Bedside Commode # Voids 2 1 # Bowel Movements 1 0 1 - Labs CBC & Chem 7: 02/17/24 07:23 02/17/24 07:23 Labs: Microbiology - Last 24 Hours (Table) 02/14/24 21:45 Blood Culture - Preliminary Blood 02/14/24 21:30 Blood Culture - Preliminary Blood
--- NOTE | 2024-02-18 15:24 | P.PN ---
Subjective Progress Note Date: 02/18/24 CHIEF COMPLAINT: Generalized abdominal pain HISTORY OF PRESENT ILLNESS: The patient is a 73-year-old female with prolonged antibiotic management for chronic urinary tract infection for over 1 year. Gabby junior presented with acute onset abdominal pain of admission. For the past 2 days, patient had acute generalized abdominal pain. is at bedside. Patient reports no abdominal pain today. She is more lucid today. "I want to eat crackers." Patient has been seen by infectious disease specialist. ROS: No new chest pain. No productive sputum. No fevers or chills. PHYSICAL EXAM: VITAL SIGNS: Reviewed CONSTITUTIONAL: Well developed and in no acute distress. EYES: Conjuctivae without sclera icterus. Extraocular movements grossly intact. HEAD, EARS, NOSE, THROAT: Moist buccal mucosa. Head is atraumatic, normocephalic. Hears conversational speech. No nasal drainage. RESPIRATORY: Non-labored respirations and equal bilateral excursions. CARDIOVASCULAR: Palpable 2+ radial pulses. ABDOMEN: Resolved abdominal tenderness. No peritonitis. MUSCULOSKELETAL: No gross deformity of the lower extremities noted. No clubbing. No cyanosis. SKIN: Good skin turgor. Well perfused. NEUROLOGIC: Cranial nerves II through XII grossly intact. No focal or lateralizing signs. PSYCH: Alert and oriented to self. CLINICAL LABS: Reviewed. WBC pending. ASSESSMENT: 1. Generalized abdominal pain with diarrhea for risk for colitis 2. Personal history of diverticulitis 3. Chronic antibiotic management for chronic urinary tract infection 4. Sepsis on admission PLAN: 1. Infectious disease following due to her complicated antibiotic course for over 1 year. Clinically, patient has now turned around and doing better. 2. Will start low fiber diet as abdominal pain completely resolved. 3. I ordered repeat CBC 4. No acute surgical intervention at this time. Objective - Vital Signs Vital signs: Vital Signs Temp 97.5 F L 02/18/24 14:44 Pulse 78 02/18/24 14:44 Resp 17 02/18/24 14:44 BP 130/77 02/18/24 14:44 Pulse Ox 97 02/18/24 14:44 FiO2 Intake & Output 02/17/24 02/18/24 02/18/24 18:59 06:59 18:59 Intake Total 2930 240 Output Total 1 Balance -1 2930 240 Intake: Intake, IV Titration 1630 Amount Piperacillin-Tazobactam 3 100 .375 gm In Sodium Chloride 0.9% 100 ml @ 25 mls/hr IVPB Q8HR [facility] Rx# :[id number] Sodium Chloride 0.9% 1, 1430 000 ml @ 130 mls/hr IV . Q7H42M [facility] Rx#:[id number] metroNIDAZOLE-NS PMX 500 100 mg In Saline 1 100ml.bag @ 100 mls/hr IVPB Q8HR [facility] Rx#:[id number] Oral 1300 240 Output: Stool 1 Other: Voiding Method Bedside Commode Bedside Commode Bedside Commode # Voids 2 3 # Bowel Movements 1 0 0 - Labs CBC & Chem 7: 02/17/24 07:23 02/17/24 07:23 Labs: Microbiology - Last 24 Hours (Table) 02/14/24 21:45 Blood Culture - Preliminary Blood 02/14/24 21:30 Blood Culture - Preliminary Blood
[2024-02-19] MEDS ORDERED: PEG 3350 (236 GM/BTL) + LYTES 4,000 ML BOTTLE PO ONE (08:00)
[2024-02-19 09:56] LABS: HCT 30.7 % (37.2-46.3); HGB 10.2 g/dL (12.0-15.0); MCH 29.2 pg (27.0-32.0); MCHC 33.2 g/dL (32.0-37.0); Mean Platelet Volume 10.3 FL (9.5-12.2); NRBC Per 100 WBC 0 X 10*3/uL (0.00-0.01); Platelet Count 163 X 10*3/uL (140-440); RBC 3.49 X 10*6/uL (4.10-5.20); RDW 13.6 % (11.5-14.5); WBC 8.65 X 10*3/uL (4.50-10.00)
[2024-02-19 10:11] LABS: BUN/Creat Ratio 12.67 Ratio (12.00-20.00); Blood Urea Nitrogen 7.6 mg/dL (9.0-27.0); Calcium 8.8 mg/dL (8.7-10.3); Carbon Dioxide 19.5 mmol/L (21.6-31.8); Chloride 113 mmol/L (96-109); Glucose 77 mg/dL (70-110); Potassium 2.4 mmol/L (3.5-5.5); Sodium 144 mmol/L (135-145)
[2024-02-19] MEDS: APIXABAN 5 MG TAB PO SCH (11:43)
[2024-02-19] MEDS: POTASSIUM CHLORIDE ER 20 MEQ TAB.ER PO STA (11:43)
[2024-02-19] MEDS: POTASSIUM CHLORIDE 10 MEQ in WATER FOR INJECTION 1 100ML.BAG IVPB SCH ×2 (11:44→23:49)
--- NOTE | 2024-02-19 13:18 | P.PN ---
Subjective Progress Note Date: 02/19/24 patient's resting comfortably in her bed. She denies any significant abdominal pain. On exam vital signs are stable. Abdomen soft. no surgical intervention is planned. Patient will be managed by the medical service. Objective - Vital Signs Vital signs: Vital Signs Temp 97.5 F L 02/19/24 08:05 Pulse 93 02/19/24 09:00 Resp 16 02/19/24 09:00 BP 147/71 02/19/24 08:05 Pulse Ox 98 02/19/24 08:05 FiO2 Intake & Output 02/18/24 02/19/24 02/19/24 18:59 06:59 18:59 Intake Total 240 Output Total 1 Balance 240 -1 Intake: Oral 240 Output: Stool 1 Other: Voiding Method Bedside Commode Bedside Commode Bedside Commode # Voids 3 1 # Bowel Movements 0 2 1 - Labs CBC & Chem 7: 02/19/24 04:20 02/19/24 04:20 Labs: Abnormal Lab Results - Last 24 Hours (Table) 02/19/24 02/19/24 Range/Units 04:20 04:20 RBC 3.49 L (4.10-5.20) X 10*6/uL Hgb 10.2 L (12.0-15.0) g/dL Hct 30.7 L (37.2-46.3) % Potassium 2.4 A* (3.5-5.5) mmol/L Chloride 113 H (96-109) mmol/L Carbon Dioxide 19.5 L (21.6-31.8) mmol/L BUN 7.6 L (9.0-27.0) mg/dL Microbiology - Last 24 Hours (Table) 02/15/24 16:25 Stool Culture - Final Stool
--- NOTE | 2024-02-19 14:27 | P.PN ---
Subjective Progress Note Date: 02/19/24 * 73-year-old one of our office patient with history of chronic anemia, obstructive sleep apnea on CPAP, recurrent gout, hypertension, hyperlipidemia, pulmonary embolism on anticoagulation, generalized depression anxiety attacks, recurrent abdominal pain diverticulosis, recurrent UTI, who had a previous history of robotic assisted laparoscopic reduction of incarcerated transverse colon, repair of recurrent incarcerated incisional ventral hernia with lysis of adhesion few times in the past. She also has chronic distal dermatitis, iron deficiency anemia, chronic neuropathy. * She presented to the emergency department at [facility] on 02/14/2024 significant abdominal discomfort with nausea and diarrhea or pain and discomfort was in the middle abdominal area she is known history of recurrent UTI and diverticulitis she is seen few subspecialist in the past including gastroenterology and general surgery was treated for lysis of adhesions along with incarcerated hernia in the past successfully. At the time of the presentation to the emergency department laboratory evaluation showed 16.7 of white blood cell with normal hemoglobin and slight left shift, her lipase and amylase were normal, glucose was mildly elevated calcium level was elevated as well. No UA result were done at the time but CAT scan of the abdomen pelvis shows colonic diverticular disease with question of mild sigmoid pericolonic fat stranding which could indicate mild acute diverticulitis or focal colitis. With patient's current history and symptoms send that being admitted to the hospital for acute diverticulitis with UTI not full treatment as an outpatient. * From the recurrent symptom patient has with diverticulitis and having extremity flareup last few years the patient probably should explore the possibility of surgical intervention, apparently had seen Dr. Hummel in the past patient panicked not to do surgery at that point. Will consult Dr. Hummel at this time for reevaluation and see if patient need to be rescoped again and need to explore the possibility of partial colectomy. * 02/15/2024: She is continue to have significant abdominal pain and discomfort especially in the lower abdominal region and continue to run low-grade temperature antibiotic will be expanded furthermore to add Flagyl IV. Also will consult general surgery for possible need to have an intervention eventually for partial resection around the area or her diverticulitis is very active. Repeat laboratory today continue to show white blood cell of 16,000 potassium is down to 3.0 will use potassium replacement protocol no effect on the kidney function so far. * 02/16/2024: She continues to have significant abdominal pain is not improving as fast as expected. She was kept n.p.o. for potential testing patient is not going for colonoscopy till Tuesday she will start on antibiotics, clear liquid diet will advance gradually, continue electrolyte balance and replacement for now we will hold Eliquis for 48 hours prior to her colonoscopy. Patient still showing significant amount of discomfort does not reflect with seen with her CAT scan will continue at least aggressive current management. All cultures remain negative but her white blood cell continue to be quite elevated with significant thrombocytopenia affected by pocket infection creatinine remained 8.8 with bun 15.1. * 02/18/24 : Dr Quigley assumed care : Patient seen and evaluated bedside, vitals reviewed, CBC and basic metabolic panel pending for gastrointestinal bleed not initiated IV heparin at this point due to concern for lower GI bleed and drop in hemoglobin from 13-9, will continue to monitor. If hemoglobin stabilizes we will start patient on heparin without bolus to protect from recurrent pulm embolism. Use SCDs bilateral lower extreme * 02/19/24 : Patient seen and evaluated bedside, potassium was noted to be low which is replaced. CBC shows significant improvement in WBC count 8.6 from 22.5, stool C. difficile PCR positive, patient does get confused during conversation concern for acute delirium, continue with frequent orientation, electrolytes replaced PHYSICAL EXAMINATION: GENERAL: The patient is alert and oriented x 2 not in any acute distress. Well developed, well nourished. HEENT: Pupils are round and equally reacting to light. EOMI. No scleral icterus. No conjunctival pallor. Normocephalic, atraumatic. No pharyngeal erythema. No thyromegaly. CARDIOVASCULAR: S1 and S2 present. No murmurs, rubs, or gallops. PULMONARY: Chest is clear to auscultation, no wheezing or crackles. ABDOMEN: Soft, nontender, nondistended, normoactive bowel sounds. No palpable organomegaly. MUSCULOSKELETAL: No joint swelling or deformity. EXTREMITIES: No cyanosis, clubbing, or pedal edema. NEUROLOGICAL: Gross neurological examination did not reveal any focal deficits. SKIN: No rashes. Assessment and plan * Abdominal pain with suspected diverticulitis * C. difficile colitis * Acute delirium * Hypertension obstructive sleep apnea * History of pulm embolism * Chronic anemia * History of urinary tract infection * History of gout * Consult obtained from general surgery, infectious disease * In regards to to suspected diverticulitis , patient on IV antibiotics on Zosyn and Flagyl >> antibiotics to be de-escalated per infectious disease, general surgery consulted will plan colonoscopy during this hospitalization * In regards to C. difficile colitis continue oral vancomycin * In regards to history of pulm embolism , since no surgical intervention planned Eliquis resumed , diet advanced as tolerated * Regards to anemia continue to follow-up on H&H, anticoagulation resumed continue to monitor hemoglobin * Regards to urinary tract infection, patient was on Macrobid, infectious is following Objective - Vital Signs Vital signs: Vital Signs Temp 97.5 F L 02/19/24 08:05 Pulse 93 02/19/24 09:00 Resp 16 02/19/24 09:00 BP 147/71 02/19/24 08:05 Pulse Ox 98 02/19/24 08:05 FiO2 Intake & Output 02/18/24 02/19/24 02/19/24 18:59 06:59 18:59 Intake Total 240 Output Total 1 Balance 240 -1 Intake: Oral 240 Output: Stool 1 Other: Voiding Method Bedside Commode Bedside Commode Bedside Commode # Voids 3 1 # Bowel Movements 0 2 1 - Labs CBC & Chem 7: 02/19/24 04:20 02/19/24 04:20 Labs: Abnormal Lab Results - Last 24 Hours (Table) 02/19/24 02/19/24 Range/Units 04:20 04:20 RBC 3.49 L (4.10-5.20) X 10*6/uL Hgb 10.2 L (12.0-15.0) g/dL Hct 30.7 L (37.2-46.3) % Potassium 2.4 A* (3.5-5.5) mmol/L Chloride 113 H (96-109) mmol/L Carbon Dioxide 19.5 L (21.6-31.8) mmol/L BUN 7.6 L (9.0-27.0) mg/dL Microbiology - Last 24 Hours (Table) 02/15/24 16:25 Stool Culture - Final Stool
--- NOTE | 2024-02-19 16:44 | P.PN ---
Subjective Progress Note Date: 02/18/24 Principal diagnosis: Reason for follow-up is colitis and leukocytosis Patient is a 74-year-old female with a past medical history significant for hypertension history of PE sleep apnea factor V Leiden deficiency patient apparently has been on multiple courses of antibiotic for UTI, present to the hospital significant diarrhea CT abdominal pelvis and mention colitis versus diverticulitis, ID consulted because of worsening white count and diarrhea. On today's evaluation that is 02/18/2024, Patient is afebrile patient is currently on room air and denies having any shortness of breath, the patient denies any chest pain or cough, the patient denies any nausea vomiting, patient mention improvement in her abdominal pain and diarrhea has slowed down. No CBC was done today still waiting for stool for C. difficile PCR Objective - Vital Signs Vital signs: Vital Signs Temp 97.5 F L 02/18/24 14:44 Pulse 78 02/18/24 14:44 Resp 17 02/18/24 14:44 BP 130/77 02/18/24 14:44 Pulse Ox 97 02/18/24 14:44 FiO2 Intake & Output 02/17/24 02/18/24 02/18/24 18:59 06:59 18:59 Intake Total 2930 240 Output Total 1 Balance -1 2930 240 Intake: Intake, IV Titration 1630 Amount Piperacillin-Tazobactam 3 100 .375 gm In Sodium Chloride 0.9% 100 ml @ 25 mls/hr IVPB Q8HR [facility]TE Rx# :[id number] Sodium Chloride 0.9% 1, 1430 000 ml @ 130 mls/hr IV . Q7H42M [facility] Rx#:[id number] metroNIDAZOLE-NS PMX 500 100 mg In Saline 1 100ml.bag @ 100 mls/hr IVPB Q8HR YVETTE Rx#:[id number] Oral 1300 240 Output: Stool 1 Other: Voiding Method Bedside Commode Bedside Commode Bedside Commode # Voids 2 3 # Bowel Movements 1 0 0 - Exam GENERAL DESCRIPTION: An elderly female lying in bed in no distress RESPIRATORY SYSTEM: Unlabored breathing , decreased breath sounds at bases HEART: S1 S2 regular rate and rhythm , ABDOMEN: Soft , mild tenderness EXTREMITIES: No edema feet - Labs CBC & Chem 7: 02/19/24 04:20 02/19/24 04:20 Labs: Microbiology - Last 24 Hours (Table) 02/14/24 21:45 Blood Culture - Preliminary Blood 02/14/24 21:30 Blood Culture - Preliminary Blood Assessment and Plan (1) Colitis Current Visit: Yes Status: Acute Code(s): K52.9 - NONINFECTIVE GASTROENTERITIS AND COLITIS, UNSPECIFIED SNOMED Code(s): 85880965 (2) Diarrhea Current Visit: Yes Status: Acute Code(s): R19.7 - DIARRHEA, UNSPECIFIED SNOMED Code(s): 52218203 (3) Leukocytosis Current Visit: Yes Status: Acute Code(s): D72.829 - ELEVATED WHITE BLOOD CELL COUNT, UNSPECIFIED SNOMED Code(s): 100439954 Plan: 1patient presented to hospital with abdominal pain and extensive diarrhea and this patient has been extensive course of oral antibiotic and outpatient for UTI CT has not been very clear as for his reporting with questionable diverticulitis versus colitis however clinically patient is likely behaving as C. difficile colitis 2-nursing staff has been advised again to obtain stool for C. difficile PCR 3-patient to continue with oral vancomycin empirically while waiting for the workup to be completed Dictation was produced using [employer] dictation software. please excuse any grammatical, word or spelling errors. Time with Patient: Less than 30
--- NOTE | 2024-02-19 16:45 | P.PN ---
Subjective Progress Note Date: 02/19/24 Principal diagnosis: Reason for follow-up is colitis and leukocytosis Patient is a 74-year-old female with a past medical history significant for hypertension history of PE sleep apnea factor V Leiden deficiency patient apparently has been on multiple courses of antibiotic for UTI, present to the hospital significant diarrhea CT abdominal pelvis and mention colitis versus diverticulitis, ID consulted because of worsening white count and diarrhea. On today's evaluation that is 02/19/2024, patient has been afebrile, patient is breathing comfortably and is currently on room air, patient denies having any significant cough no chest pain shortness of breath, patient denies nausea vomiting, the patient abdominal pain has decreased intensity however mention more diarrhea today than yesterday. Patient white count is down to 8.65 creatinine 0.6 stool for C. difficile PCR positive Objective - Vital Signs Vital signs: Vital Signs Temp 97.5 F L 02/19/24 08:05 Pulse 93 02/19/24 09:00 Resp 16 02/19/24 09:00 BP 147/71 02/19/24 08:05 Pulse Ox 98 02/19/24 08:05 FiO2 Intake & Output 02/18/24 02/19/24 02/19/24 18:59 06:59 18:59 Intake Total 240 Output Total 1 Balance 240 -1 Intake: Oral 240 Output: Stool 1 Other: Voiding Method Bedside Commode Bedside Commode Bedside Commode # Voids 3 1 # Bowel Movements 0 2 1 - Exam GENERAL DESCRIPTION: An elderly female lying in bed in no distress RESPIRATORY SYSTEM: Unlabored breathing , decreased breath sounds at bases HEART: S1 S2 regular rate and rhythm , ABDOMEN: Soft , mild tenderness EXTREMITIES: No edema feet - Labs CBC & Chem 7: 02/19/24 04:20 02/19/24 04:20 Labs: Abnormal Lab Results - Last 24 Hours (Table) 02/19/24 02/19/24 Range/Units 04:20 04:20 RBC 3.49 L (4.10-5.20) X 10*6/uL Hgb 10.2 L (12.0-15.0) g/dL Hct 30.7 L (37.2-46.3) % Potassium 2.4 A* (3.5-5.5) mmol/L Chloride 113 H (96-109) mmol/L Carbon Dioxide 19.5 L (21.6-31.8) mmol/L BUN 7.6 L (9.0-27.0) mg/dL Microbiology - Last 24 Hours (Table) 02/15/24 16:25 Stool Culture - Final Stool Assessment and Plan (1) C. difficile colitis Current Visit: Yes Status: Acute Code(s): A04.72 - ENTEROCOLITIS D/T CLOSTRIDIUM DIFFICILE, NOT SPCF RECUR SNOMED Code(s): 418403556 Plan: 1patient presented to hospital with abdominal pain and extensive diarrhea and this patient has been extensive course of oral antibiotic and outpatient for UTI CT has not been very clear as for his reporting with questionable diverticulitis versus colitis however clinically patient is likely behaving as C. difficile colitis 2-patient came back positive stool for C. difficile PCR 3-patient to continue with oral vancomycin however will discontinue Zosyn as c linically not behaving as diverticulitis we will add Questran for symptomatic relief Dictation was produced using [employer] dictation software. please excuse any grammatical, word or spelling errors. Time with Patient: Less than 30
[2024-02-19] MEDS: CHOLESTYRAMINE (WITH SUGAR) 4 GM PACKET PO SCH (20:43)
[2024-02-19 22:15] LABS: African American GFR (CKD) >90 (>60 ml/min/1.73 sqM); Anion Gap 9 mmol/L; Blood Urea Nitrogen 6 mg/dL (7-17); Calcium 8.9 mg/dL (8.4-10.2); Carbon Dioxide 17 mmol/L (22-30); Chloride 114 mmol/L (98-107); Glucose 91 mg/dL (74-99); Non-African American GFR(CKD) >90 (>60 ml/min/1.73 sqM); Sodium 140 mmol/L (137-145)
[2024-02-19 22:49] LABS: Potassium 2.7 mmol/L (3.5-5.1)
[2024-02-19] MEDS: ZINC OXIDE PASTE (Z-GUARD) 1 APPLIC TOPICAL PRN (23:58)
--- NOTE | 2024-02-20 09:27 | CDI ---
Documentation Clarification Form Date: 02/20/2024 From: Hortencia Spaulding Phone: [phone] Admit Date: 02/16/2024 04:25:00 PM Patient Name: Ashley Bal Visit Number: [id number] Discharge Date: ATTENTION: The Clinical Documentation Specialists (CDI) and [facility] Coding Staff appreciate your assistance in clarifying documentation. Please respond to the clarification below the line at the bottom and electronically sign. The CDI & [facility] Coding staff will review the response and follow-up if needed. Please note: Queries are made part of the Legal Health Record. If you have any questions, please contact the author of this message via ITS. Dr. Kari Quigley: Sepsis present on admission is documented in the Surgery progress notes 02/16 and 02/17 but is not noted in subsequent documentation. Clarification is requested. History/Risk Factors: Anemia, HTN, PE on OAC, Diverticulosis, recent UTI who presents with significant abdominal discomfort, diarrhea and found to have Cdif colitis and diverticulitis Clinical Indicators: 02/13 Triage VS: 153/92, 98.2, 88, 18, 98% room air 02/13-02/18 Temperature max: 102.5(02/14) 02/16 Surgery PN, Assessment: "4. Sepsis on admission" 02/17 Surgery PN, Assessment: "4. Sepsis on admission" 02/13-02/18 WBC: 16.7, 16.6, 18.37, 22.51, 8.65 02/17 C. difficile PCR: Positive Treatment: Flagyl 500mg IV [id number] start 02/14 Vancomycin 2500mg oral QID start 02/16 Zosyn 3.375gram IV [id number] 02/14-02/18 Please clarify if the Sepsis is: [ y ] Sepsis POA, confirmed, remains under treatment [ ] Sepsis confirmed, resolved [ ] Sepsis ruled out [ ] Other condition, please specify [ ] Unable to determine In responding to this query, please exercise your independent professional judgment. The [facility] Coding Staff and Clinical Documentation Specialists appreciate your assistance in clarifying documentation, maintaining compliance with coding guidelines, accurately documenting patients condition and capturing severity of illness. The fact that a question is asked does not imply that any particular answer is desired or expected. Communication forms are a method of clarifying documentation and are made part of the Legal Health Record. Thank you in advance for your clarification. Last Revision: December 2020 SIRS Criteria: 2 or more of the following may indicate SIRS Temperature < 96.8F (36C) or > 101.0F (38.3C) Heart Rate > 90 bpm Respiratory Rate > 20 breaths/min or PaCO2 < 32 mmHg White Blood Cell Count > 12,000 or < 4,000 cells/mm3 or > 10% bands MTDD
[2024-02-20 10:30] LABS: Basophils # (A) 0.06 X 10*3/uL (0.00-0.10); Basophils % (A) 0.8 %; Eosinophils # (A) 0.07 X 10*3/uL (0.04-0.35); Eosinophils % (A) 0.9 %; HCT 31.7 % (37.2-46.3); HGB 10.6 g/dL (12.0-15.0); Lymphocytes # (A) 1.62 X 10*3/uL (0.90-5.00); MCH 30.4 pg (27.0-32.0); MCHC 33.4 g/dL (32.0-37.0); MCV 90.8 FL (80.0-97.0); Mean Platelet Volume 10.7 FL (9.5-12.2); Monocytes # (A) 1.98 X 10*3/uL (0.20-1.00); Monocytes % (A) 26.9 %; NRBC Per 100 WBC 0 X 10*3/uL (0.00-0.01); Neutrophils % (A) 44.8 %; Platelet Count 161 X 10*3/uL (140-440); RBC 3.49 X 10*6/uL (4.10-5.20); RDW 13.8 % (11.5-14.5); WBC 7.37 X 10*3/uL (4.50-10.00)
[2024-02-20 11:21] LABS: Blood Urea Nitrogen 4.4 mg/dL (9.0-27.0); Carbon Dioxide 20.7 mmol/L (21.6-31.8); Chloride 112 mmol/L (96-109); Glucose 87 mg/dL (70-110); Potassium 2.8 mmol/L (3.5-5.5); Sodium 145 mmol/L (135-145)
[2024-02-20 11:22] LABS: Calcium 8.6 mg/dL (8.7-10.3)
[2024-02-20] MEDS ORDERED: Potassium Replacement Protocol 1 EACH MISC MISCELLANE PRN (12:22)
--- NOTE | 2024-02-20 12:32 | P.PN ---
Subjective Progress Note Date: 02/20/24 Principal diagnosis: Reason for follow-up is colitis and leukocytosis Patient is a 74-year-old female with a past medical history significant for hypertension history of PE sleep apnea factor V Leiden deficiency patient apparently has been on multiple courses of antibiotic for UTI, present to the hospital significant diarrhea CT abdominal pelvis and mention colitis versus diverticulitis, ID consulted because of worsening white count and diarrhea. On today's evaluation that is 02/20/2024,the patient denies any fever or any chills, patient is breathing comfortably on room air, the patient denies chest pain shortness of breath and no significant cough, patient denies any nausea vomiting or abdominal pain has improved and diarrhea has slowed down slightly following up. Patient white count 7.37, creatinine 0.5 Objective - Vital Signs Vital signs: Vital Signs Temp 98.2 F 02/20/24 08:10 Pulse 75 02/20/24 08:10 Resp 18 02/20/24 08:10 BP 155/81 02/20/24 08:10 Pulse Ox 98 02/20/24 08:10 FiO2 Intake & Output 02/19/24 02/20/24 02/20/24 18:59 06:59 18:59 Output Total 1 1 Balance -1 -1 Output: Urine 1 Stool 1 Other: Voiding Method Bedside Commode Bedside Commode # Voids 1 # Bowel Movements 1 3 - Exam GENERAL DESCRIPTION: An elderly female lying in bed in no distress RESPIRATORY SYSTEM: Unlabored breathing , decreased breath sounds at bases HEART: S1 S2 regular rate and rhythm , ABDOMEN: Soft , mild tenderness EXTREMITIES: No edema feet - Labs CBC & Chem 7: 02/20/24 06:06 02/20/24 06:06 Labs: Abnormal Lab Results - Last 24 Hours (Table) 02/19/24 02/20/24 02/20/24 Range/Units 21:24 06:06 06:06 RBC 3.49 L (4.10-5.20) X 10*6/uL Hgb 10.6 L (12.0-15.0) g/dL Hct 31.7 L (37.2-46.3) % Immature Gran # 0.34 H (0.00-0.04) X 10*3/uL Monocytes # 1.98 H (0.20-1.00) X 10*3/uL Potassium 2.7 L* 2.8 L (3.5-5.1) mmol/L Chloride 114 H 112 H (98-107) mmol/L Carbon Dioxide 17 L 20.7 L (22-30) mmol/L Anion Gap 12.30 H (4.00-12.00) mmol/L BUN 6 L 4.4 L (7-17) mg/dL Creatinine 0.47 L 0.5 L (0.52-1.04) mg/dL BUN/Creatinine Ratio 8.80 L (12.00-20.00) Ratio Calcium 8.6 L (8.7-10.3) mg/dL Microbiology - Last 24 Hours (Table) 02/14/24 21:45 Blood Culture - Final Blood 02/14/24 21:30 Blood Culture - Final Blood Assessment and Plan (1) C. difficile colitis Current Visit: Yes Status: Acute Code(s): A04.72 - ENTEROCOLITIS D/T CLOSTRIDIUM DIFFICILE, NOT SPCF RECUR SNOMED Code(s): 427920608 Plan: 1patient presented to hospital with abdominal pain and extensive diarrhea and this patient has been extensive course of oral antibiotic and outpatient for UTI CT has not been very clear as for his reporting with questionable diverticulitis versus colitis however clinically patient is likely behaving as C. difficile colitis 2-patient came back positive stool for C. difficile PCR 3-patient seem to have transumbilical improvement with the oral vancomycin and Questran to continue Patient and son has multiple questions concerns also been answered in layman terms patient has been encouraged to increase her probiotic and yogurt intake Dictation was produced using [employer] dictation software. please excuse any grammatical, word or spelling errors. Time with Patient: Less than 30
[2024-02-20] MEDS: POTASSIUM CHLORIDE ER 20 MEQ TAB.ER PO SCH ×2 (12:49→17:53)
--- NOTE | 2024-02-20 13:45 | P.PN ---
Subjective Progress Note Date: 02/20/24 CHIEF COMPLAINT: Generalized abdominal pain HISTORY OF PRESENT ILLNESS: The patient is a 73-year-old female with prolonged antibiotic management for chronic urinary tract infection for over 1 year. Afsaneh gnostic studies consistent with colitis due to C. difficile not diverticulitis. She is resting comfortably. Abdominal pain resolved. Still has diarrhea but improving. ROS: No new chest pain. No productive sputum. No fevers or chills. PHYSICAL EXAM: VITAL SIGNS: Reviewed CONSTITUTIONAL: Well developed and in no acute distress. EYES: Conjuctivae without sclera icterus. Extraocular movements grossly intact. HEAD, EARS, NOSE, THROAT: Moist buccal mucosa. Head is atraumatic, normocephal ic. Hears conversational speech. No nasal drainage. RESPIRATORY: Non-labored respirations and equal bilateral excursions. CARDIOVASCULAR: Palpable 2+ radial pulses. ABDOMEN: No peritonitis. MUSCULOSKELETAL: No gross deformity of the lower extremities noted. No clubbing. No cyanosis. SKIN: Good skin turgor. Well perfused. NEUROLOGIC: Cranial nerves II through XII grossly intact. No focal or lateralizing signs. PSYCH: Alert and oriented to self. CLINICAL LABS: Reviewed. WBC normal. Potassium less than 3.0, hypokalemia. CDiff positive ASSESSMENT: 1. Generalized abdominal pain with diarrhea for risk for colitis 2. Personal history of diverticulitis 3. Chronic antibiotic management for chronic urinary tract infection 4. Sepsis on admission 5. Hypokalemia PLAN: 1. Patient is on oral vancomycin for C. difficile with improvement of her symptoms and may have low fiber diet. 2. Continue supportive care. 3. Potassium infusions ordered, 40 meQ to correct severe hypokalemia Objective - Vital Signs Vital signs: Vital Signs Temp 98.3 F 02/20/24 12:20 Pulse 76 02/20/24 12:20 Resp 17 02/20/24 12:20 BP 149/89 02/20/24 12:20 Pulse Ox 96 02/20/24 12:20 FiO2 Intake & Output 02/19/24 02/20/24 02/20/24 18:59 06:59 18:59 Output Total 1 1 Balance -1 -1 Output: Urine 1 Stool 1 Other: Voiding Method Bedside Commode Bedside Commode # Voids 1 # Bowel Movements 1 3 - Labs CBC & Chem 7: 02/20/24 06:06 02/20/24 06:06 Labs: Abnormal Lab Results - Last 24 Hours (Table) 02/19/24 02/20/24 02/20/24 Range/Units 21:24 06:06 06:06 RBC 3.49 L (4.10-5.20) X 10*6/uL Hgb 10.6 L (12.0-15.0) g/dL Hct 31.7 L (37.2-46.3) % Immature Gran # 0.34 H (0.00-0.04) X 10*3/uL Monocytes # 1.98 H (0.20-1.00) X 10*3/uL Potassium 2.7 L* 2.8 L (3.5-5.1) mmol/L Chloride 114 H 112 H (98-107) mmol/L Carbon Dioxide 17 L 20.7 L (22-30) mmol/L Anion Gap 12.30 H (4.00-12.00) mmol/L BUN 6 L 4.4 L (7-17) mg/dL Creatinine 0.47 L 0.5 L (0.52-1.04) mg/dL BUN/Creatinine Ratio 8.80 L (12.00-20.00) Ratio Calcium 8.6 L (8.7-10.3) mg/dL Microbiology - Last 24 Hours (Table) 02/14/24 21:45 Blood Culture - Final Blood 02/14/24 21:30 Blood Culture - Final Blood
[2024-02-21] MEDS: POTASSIUM CHLORIDE ER 20 MEQ TAB.ER PO SCH ×3 (00:25→13:18)
--- NOTE | 2024-02-21 06:02 | P.PN ---
Subjective Progress Note Date: 02/17/24 HISTORY OF PRESENT ILLNESS: 73-year-old one of our office patient with history of chronic anemia, obstructive sleep apnea on CPAP, recurrent gout, hypertension, hyperlipidemia, pulmonary embolism on anticoagulation, generalized depression anxiety attacks, recurrent abdominal pain diverticulosis, recurrent UTI, who had a previous history of robotic assisted laparoscopic reduction of incarcerated transverse colon, repair of recurrent incarcerated incisional ventral hernia with lysis of adhesion few times in the past. She also has chronic distal dermatitis, iron deficiency anemia, chronic neuropathy. She presented to the emergency department at [facility] on 02/14/2024 significant abdominal discomfort with nausea and diarrhea or pain and discomfort was in the middle abdominal area she is known history of recurrent UTI and diverticulitis she is seen few subspecialist in the past including gastroenterology and general surgery was treated for lysis of adhesions along with incarcerated hernia in the past successfully. At the time of the presentation to the emergency department laboratory evaluation showed 16.7 of white blood cell with normal hemoglobin and slight left shift, her lipase and amylase were normal, glucose was mildly elevated calcium level was elevated as well. No UA result were done at the time but CAT scan of the abdomen pelvis shows colonic diverticular disease with question of mild sigmoid pericolonic fat stranding which could indicate mild acute diverticulitis or focal colitis. With patient's current history and symptoms send that being admitted to the hospital for acute diverticulitis with UTI not full treatment as an outpatient. From the recurrent symptom patient has with diverticulitis and having extremity flareup last few years the patient probably should explore the possibility of surgical intervention, apparently had seen Dr. Hummel in the past patient panicked not to do surgery at that point. Will consult Dr. Hummel at this time for reevaluation and see if patient need to be rescoped again and need to explore the possibility of partial colectomy. 02/15/2024: She is continue to have significant abdominal pain and discomfort especially in the lower abdominal region and continue to run low-grade te mperature antibiotic will be expanded furthermore to add Flagyl IV. Also will consult general surgery for possible need to have an intervention eventually for partial resection around the area or her diverticulitis is very active. Repeat laboratory today continue to show white blood cell of 16,000 potassium is down to 3.0 will use potassium replacement protocol no effect on the kidney function so far. 02/16/2024: She continues to have significant abdominal pain is not improving as fast as expected. She was kept n.p.o. for potential testing patient is not going for colonoscopy till Tuesday she will start on antibiotics, clear liquid diet will advance gradually, continue electrolyte balance and replacement for now we will hold Eliquis for 48 hours prior to her colonoscopy. Patient still showing significant amount of discomfort does not reflect with seen with her CAT scan will continue at least aggressive current management. All cultures remain negative but her white blood cell continue to be quite elevated with significant thrombocytopenia affected by pocket infection creatinine remained 8.8 with bun 1.51. February 17, 2024: She continued to have severe pain not compatible to what seen on her CAT scan, infectious disease and general surgery have her on advance colitis management along with diverticulitis. Original plan was for patient to have a prep after being off anticoagulation to be up for colonoscopy probably on Tuesday. Will continue current management still able to do at least clear liquid colonoscopy on Tuesday and probably partial colectomy afterward depend on the result. REVIEW OF SYSTEMS: CONSTITUTIONAL: Well-developed no acute respiratory distress. EYES: No icterus sclerae, no conjunctivitis. EARS, NOSE, MOUTH, THROAT, and FACE: No sore throat, lymphadenopathy, carotid bruits or deformity. RESPIRATORY: No SOB cough or wheezes. CARDIOVASCULAR: No CP, Palpitation, PND, Orthopnea, or angina. GASTROINTESTINAL: Slight abdominal discomfort or mild pain and nausea. GENITOURINARY: Recurrent UTI with no recent stone. INTEGUMENT/BREAST: Negative for any muscular injury with mild osteoarthritis.. HEMATOLOGIC/LYMPHATIC: Negative for bleed or purpura. MUSCULOSKELTAL: Negative for Myalgia or arthralgia. NEURLOGICAL: No LOC, Sz or syncope, blurred vision dizziness or abnormality.. BEHAVIORAL/PSYCH: Negative. ENDOCRINE: Negative. PHYSICAL EXAMINATION: General Appearance: Alert, cooperative, no distress, appears stated age. Neck HEENT: Supple, no lymphadenopathy, no thyroid enlargement, no carotid bruits. Lungs: Clear to auscultation without crackles or wheezes no rhonchi, no deformity. Chest Wall: Chest wall normal expansion with deep inspiration no tenderness and no deformity was found on exam, no costochondral pain or discomfort. Heart: Regular rate and rhythm, S1, S2 normal, no murmur, rub or gallop. Back: Symmetric, no curvature, ROM normal, no CVA tenderness. Abdomen: Soft positive bowel sound no organomegaly slight discomfort in the lower abdominal region area both right and left and mid lower abdominal region not able to feel any mass at this point. Extremities: Extremities normal, atraumatic, no cyanosis or edema. Pulses: 2+ and symmetric. Skin: Skin color, texture, tugor normal, no rashes or lesions. Neurologic: Alert oriented x3 cranial nerves II through XII intact, no motor deficit, no abnormal balance or gait. ASSESSMENT AND PLAN: _Severe abdominal pain: With finding consistent with severe diverticulitis has been on IV antibiotic we will continue Unasyn along with Flagyl, continue to follow instruction of infectious disease and general surgery. Patient will be going for colonoscopy on Tuesday based on the results we will decide on further management for possible partial surgery. _Patient had UTI was treated with medication for while she is on Unasyn we will hold her Ceftin for now. Symptoms are better. _Severe abdominal pain: Consistent with worsening symptoms despite the CAT scan is not showing much problem patient to stay on pain meds and will be seen general surgery. _Acute diverticulitis with? Of colitis: Continue Unasyn and add metronidazole see general surgery probably explore the idea of having to do colonoscopy probably need partial colectomy at some point. _Quite abdominal discomfort along with diarrhea again keep watching for any further finding including infectious colitis. _Hypertension: Remain on lisinopril 10 mg a day we will continue medication _Obstructive sleep apnea: Continue CPAP on regular basis. _History of pulmonary embolism: Continue Eliquis 5 mg twice a day. _Chronic anemia: Stable on iron supplement with ferrous sulfate 325 mg a day still on vitamin B12 supplement. _Chronic depression: Continue Wellbutrin SR 12 mg twice a day _Neuropathy and chronic pain syndrome: Was on Lyrica still using hydrocodone on as-needed basis. _Recent history of UTI: Was on Ceftin. _Gout: Continue allopurinol 100 mg daily. Prognosis: Guarded. Discussion: Continue IV antibiotic, she is n.p.o. except clear liquid will be going for colonoscopy on Tuesday. Objective - Vital Signs Vital signs: Vital Signs Temp 97.9 F 02/17/24 02:00 Pulse 92 02/17/24 02:00 Resp 16 02/17/24 02:00 BP 146/80 04/26/24 02:00 Pulse Ox 97 02/17/24 02:00 FiO2 Intake & Output 02/16/24 02/16/24 02/17/24 06:59 18:59 06:59 Intake Total 590 Output Total 1 Balance 589 Intake: Oral 590 Output: Stool 1 Other: Voiding Method Bedside Commode Bedside Commode Bedside Commode # Voids 1 1 # Bowel Movements 1 1 - Labs CBC & Chem 7: 02/20/24 06:06 02/21/24 03:03 Labs: Abnormal Lab Results - Last 24 Hours (Table) 02/16/24 02/16/24 Range/Units 07:01 07:01 WBC 18.37 H (4.50-10.00) X 10*3/uL RBC 3.53 L (4.10-5.20) X 10*6/uL Hgb 10.7 L (12.0-15.0) g/dL Hct 32.9 L (37.2-46.3) % Plt Count 134 L (140-440) X 10*3/uL Immature Gran # 0.38 H (0.00-0.04) X 10*3/uL Neutrophils # 12.49 H (1.80-7.70) X 10*3/uL Monocytes # 4.27 H (0.20-1.00) X 10*3/uL Potassium 3.3 L (3.5-5.5) mmol/L Carbon Dioxide 17.9 L (21.6-31.8) mmol/L Anion Gap 15.10 H (4.00-12.00) mmol/L BUN 8.7 L (9.0-27.0) mg/dL BUN/Creatinine Ratio 10.88 L (12.00-20.00) Ratio Microbiology - Last 24 Hours (Table) 02/14/24 21:45 Blood Culture - Preliminary Blood 02/14/24 21:30 Blood Culture - Preliminary Blood
--- NOTE | 2024-02-21 06:03 | P.PN ---
Subjective Progress Note Date: 02/20/24 HISTORY OF PRESENT ILLNESS: 73-year-old one of our office patient with history of chronic anemia, obstructive sleep apnea on CPAP, recurrent gout, hypertension, hyperlipidemia, pulmonary embolism on anticoagulation, generalized depression anxiety attacks, recurrent abdominal pain diverticulosis, recurrent UTI, who had a previous history of robotic assisted laparoscopic reduction of incarcerated transverse colon, repair of recurrent incarcerated incisional ventral hernia with lysis of adhesion few times in the past. She also has chronic distal dermatitis, iron deficiency anemia, chronic neuropathy. She presented to the emergency department at [facility] on 02/14/2024 significant abdominal discomfort with nausea and diarrhea or pain and discomfort was in the middle abdominal area she is known history of recurrent UTI and diverticulitis she is seen few subspecialist in the past including gastroenterology and general surgery was treated for lysis of adhesions along with incarcerated hernia in the past successfully. At the time of the presentation to the emergency department laboratory evaluation showed 16.7 of white blood cell with normal hemoglobin and slight left shift, her lipase and amylase were normal, glucose was mildly elevated calcium level was elevated as well. No UA result were done at the time but CAT scan of the abdomen pelvis shows colonic diverticular disease with question of mild sigmoid pericolonic fat stranding which could indicate mild acute diverticulitis or focal colitis. With patient's current history and symptoms send that being admitted to the hospital for acute diverticulitis with UTI not full treatment as an outpatient. From the recurrent symptom patient has with diverticulitis and having extremity flareup last few years the patient probably should explore the possibility of surgical intervention, apparently had seen Dr. Hummel in the past patient panicked not to do surgery at that point. Will consult Dr. Hummel at this time for reevaluation and see if patient need to be rescoped again and need to explore the possibility of partial colectomy. 02/15/2024: She is continue to have significant abdominal pain and discomfort especially in the lower abdominal region and continue to run low-grade te mperature antibiotic will be expanded furthermore to add Flagyl IV. Also will consult general surgery for possible need to have an intervention eventually for partial resection around the area or her diverticulitis is very active. Repeat laboratory today continue to show white blood cell of 16,000 potassium is down to 3.0 will use potassium replacement protocol no effect on the kidney function so far. 02/16/2024: She continues to have significant abdominal pain is not improving as fast as expected. She was kept n.p.o. for potential testing patient is not going for colonoscopy till Tuesday she will start on antibiotics, clear liquid diet will advance gradually, continue electrolyte balance and replacement for now we will hold Eliquis for 48 hours prior to her colonoscopy. Patient still showing significant amount of discomfort does not reflect with seen with her CAT scan will continue at least aggressive current management. All cultures remain negative but her white blood cell continue to be quite elevated with significant thrombocytopenia affected by pocket infection creatinine remained 8.8 with bun 1.51 February 17, 2024: She continued to have severe pain not compatible to what seen on her CAT scan, infectious disease and general surgery have her on advance colitis management along with diverticulitis. Original plan was for patient to have a prep after being off anticoagulation to be up for colonoscopy probably on Tuesday. Will continue current management still able to do at least clear liquid colonoscopy on Tuesday and probably partial colectomy afterward depend on the result. February 20, 2024: Through the last few days she developed to have Despite not being able to see it through the CAT scan patient had severe diverticulitis and developed to have C. difficile colitis as well and was initiated on vancomycin orally. Her original plan for intervention to do colonoscopy is changed at this point with the active colitis waiting till its resolved. Patient remain on active management for diverticulitis along with C. difficile. Continue to have pain. No plan for colonoscopy at this point patient is back on her anticoagulation. Her hypokalemia continue to be a problem she is still on replacement therapy still on hydration as well. REVIEW OF SYSTEMS: CONSTITUTIONAL: Well-developed no acute respiratory distress. EYES: No icterus sclerae, no conjunctivitis. EARS, NOSE, MOUTH, THROAT, and FACE: No sore throat, lymphadenopathy, carotid bruits or deformity. RESPIRATORY: No SOB cough or wheezes. CARDIOVASCULAR: No CP, Palpitation, PND, Orthopnea, or angina. GASTROINTESTINAL: Slight abdominal discomfort or mild pain and nausea. GENITOURINARY: Recurrent UTI with no recent stone. INTEGUMENT/BREAST: Negative for any muscular injury with mild osteoarthritis.. HEMATOLOGIC/LYMPHATIC: Negative for bleed or purpura. MUSCULOSKELTAL: Negative for Myalgia or arthralgia. NEURLOGICAL: No LOC, Sz or syncope, blurred vision dizziness or abnormality.. BEHAVIORAL/PSYCH: Negative. ENDOCRINE: Negative. PHYSICAL EXAMINATION: General Appearance: Alert, cooperative, no distress, appears stated age. Neck HEENT: Supple, no lymphadenopathy, no thyroid enlargement, no carotid bruits. Lungs: Clear to auscultation without crackles or wheezes no rhonchi, no deformity. Chest Wall: Chest wall normal expansion with deep inspiration no tenderness and no deformity was found on exam, no costochondral pain or discomfort. Heart: Regular rate and rhythm, S1, S2 normal, no murmur, rub or gallop. Back: Symmetric, no curvature, ROM normal, no CVA tenderness. Abdomen: Soft positive bowel sound no organomegaly slight discomfort in the lower abdominal region area both right and left and mid lower abdominal region not able to feel any mass at this point. Extremities: Extremities normal, atraumatic, no cyanosis or edema. Pulses: 2+ and symmetric. Skin: Skin color, texture, tugor normal, no rashes or lesions. Neurologic: Alert oriented x3 cranial nerves II through XII intact, no motor deficit, no abnormal balance or gait. ASSESSMENT AND PLAN: _Severe abdominal pain: Consistent with severe active diverticulitis and colitis without perforation. Continue IV Zosyn along with metronidazole. _C. difficile colitis: Continue vancomycin orally for now. Along with Questran to help her symptoms patient apparently was taking off Zosyn. _Severe hypokalemia: Specially with diarrhea, patient is on potassium replacement therapy. _Patient had UTI was treated with Unasyn and Zosyn off medication for now. _Severe abdominal pain: Consistent with severe diverticulitis without perforation holding off on any intervention. _Acute diverticulitis with? Of colitis: Continue Flagyl and off Unasyn for now still seen general surgery along with infectious disease. _Hypertension: Remain on lisinopril 10 mg a day we will continue medication _Obstructive sleep apnea: Continue CPAP on regular basis. _History of pulmonary embolism: Continue Eliquis 5 mg twice a day. _Chronic anemia: Stable on iron supplement with ferrous sulfate 325 mg a day still on vitamin B12 supplement. _Chronic depression: Continue Wellbutrin SR 12 mg twice a day _Neuropathy and chronic pain syndrome: Was on Lyrica still using hydrocodone on as-needed basis. _Recent history of UTI: Was on Ceftin. Off medication for now. _Gout: Continue allopurinol 100 mg daily. Prognosis: Guarded. Discussion: Back on anticoagulation, continue Flagyl continue treatment for C. difficile colitis for now. Objective - Vital Signs Vital signs: Vital Signs Temp 98.4 F 02/20/24 01:07 Pulse 79 02/20/24 01:07 Resp 18 02/20/24 01:07 BP 148/86 02/20/24 01:07 Pulse Ox 97 02/20/24 01:07 FiO2 Intake & Output 02/19/24 02/19/24 02/20/24 06:59 18:59 06:59 Output Total 1 Balance -1 Output: Stool 1 Other: Voiding Method Bedside Commode Bedside Commode Bedside Commode # Voids 1 1 # Bowel Movements 2 1 - Labs CBC & Chem 7: 02/20/24 06:06 02/21/24 03:03 Labs: Abnormal Lab Results - Last 24 Hours (Table) 02/19/24 02/19/24 02/19/24 Range/Units 04:20 04:20 21:24 RBC 3.49 L (4.10-5.20) X 10*6/uL Hgb 10.2 L (12.0-15.0) g/dL Hct 30.7 L (37.2-46.3) % Potassium 2.4 A* 2.7 L* (3.5-5.5) mmol/L Chloride 113 H 114 H (96-109) mmol/L Carbon Dioxide 19.5 L 17 L (21.6-31.8) mmol/L BUN 7.6 L 6 L (9.0-27.0) mg/dL Creatinine 0.47 L (0.52-1.04) mg/dL Microbiology - Last 24 Hours (Table) 02/14/24 21:45 Blood Culture - Final Blood 02/14/24 21:30 Blood Culture - Final Blood 02/15/24 16:25 Stool Culture - Final Stool
--- NOTE | 2024-02-21 11:12 | P.PN ---
Subjective Progress Note Date: 02/21/24 Principal diagnosis: Patient has generalized anxiety. She reports intolerance to foods as she has increased diarrhea. Recommend bowel rest for today. N.p.o. status advised. Findings of C. difficile colitis present. Objective - Vital Signs Vital signs: Vital Signs Temp 97.6 F 02/21/24 06:55 Pulse 93 02/21/24 08:45 Resp 16 02/21/24 08:45 BP 157/84 02/21/24 06:55 Pulse Ox 97 02/21/24 06:55 FiO2 Intake & Output 02/20/24 02/21/24 02/21/24 18:59 06:59 18:59 Intake Total 200 Output Total 1 Balance 200 -1 Intake: Intake, IV Titration 200 Amount metroNIDAZOLE-NS PMX 500 200 mg In Saline 1 100ml.bag @ 100 mls/hr IVPB Q8HR [facility] Rx#:[id number] Output: Stool 1 Other: Voiding Method Bedside Commode Bedside Commode # Voids 1 # Bowel Movements 1 - Labs CBC & Chem 7: 02/20/24 06:06 02/21/24 06:34 Labs: Abnormal Lab Results - Last 24 Hours (Table) 02/20/24 02/20/24 02/20/24 Range/Units 06:06 16:46 23:40 Potassium 2.8 L 2.7 L* 3.1 L (3.5-5.5) mmol/L Chloride 112 H (96-109) mmol/L Carbon Dioxide 20.7 L (21.6-31.8) mmol/L Anion Gap 12.30 H (4.00-12.00) mmol/L BUN 4.4 L (9.0-27.0) mg/dL Creatinine 0.5 L (0.6-1.5) mg/dL BUN/Creatinine Ratio 8.80 L (12.00-20.00) Ratio Calcium 8.6 L (8.7-10.3) mg/dL 02/21/24 Range/Units 06:34 Potassium 3.2 L (3.5-5.5) mmol/L Chloride (96-109) mmol/L Carbon Dioxide (21.6-31.8) mmol/L Anion Gap (4.00-12.00) mmol/L BUN (9.0-27.0) mg/dL Creatinine (0.6-1.5) mg/dL BUN/Creatinine Ratio (12.00-20.00) Ratio Calcium (8.7-10.3) mg/dL
[2024-02-21] MEDS ORDERED: Potassium Replacement Protocol 1 EACH MISC MISCELLANE PRN (12:04)
[2024-02-21] MEDS: VANCOMYCIN 125 MG CAPSULE PO SCH (16:23)
--- NOTE | 2024-02-22 06:38 | P.PN ---
Subjective Progress Note Date: 02/21/24 HISTORY OF PRESENT ILLNESS: 73-year-old one of our office patient with history of chronic anemia, obstructive sleep apnea on CPAP, recurrent gout, hypertension, hyperlipidemia, pulmonary embolism on anticoagulation, generalized depression anxiety attacks, recurrent abdominal pain diverticulosis, recurrent UTI, who had a previous history of robotic assisted laparoscopic reduction of incarcerated transverse colon, repair of recurrent incarcerated incisional ventral hernia with lysis of adhesion few times in the past. She also has chronic distal dermatitis, iron deficiency anemia, chronic neuropathy. She presented to the emergency department at [facility] on 02/14/2024 significant abdominal discomfort with nausea and diarrhea or pain and discomfort was in the middle abdominal area she is known history of recurrent UTI and diverticulitis she is seen few subspecialist in the past including gastroenterology and general surgery was treated for lysis of adhesions along with incarcerated hernia in the past successfully. At the time of the presentation to the emergency department laboratory evaluation showed 16.7 of white blood cell with normal hemoglobin and slight left shift, her lipase and amylase were normal, glucose was mildly elevated calcium level was elevated as well. No UA result were done at the time but CAT scan of the abdomen pelvis shows colonic diverticular disease with question of mild sigmoid pericolonic fat stranding which could indicate mild acute diverticulitis or focal colitis. With patient's current history and symptoms send that being admitted to the hospital for acute diverticulitis with UTI not full treatment as an outpatient. From the recurrent symptom patient has with diverticulitis and having extremity flareup last few years the patient probably should explore the possibility of surgical intervention, apparently had seen Dr. Hummel in the past patient panicked not to do surgery at that point. Will consult Dr. Hummel at this time for reevaluation and see if patient need to be rescoped again and need to explore the possibility of partial colectomy. 02/15/2024: She is continue to have significant abdominal pain and discomfort especially in the lower abdominal region and continue to run low-grade te mperature antibiotic will be expanded furthermore to add Flagyl IV. Also will consult general surgery for possible need to have an intervention eventually for partial resection around the area or her diverticulitis is very active. Repeat laboratory today continue to show white blood cell of 16,000 potassium is down to 3.0 will use potassium replacement protocol no effect on the kidney function so far. 02/16/2024: She continues to have significant abdominal pain is not improving as fast as expected. She was kept n.p.o. for potential testing patient is not going for colonoscopy till Tuesday she will start on antibiotics, clear liquid diet will advance gradually, continue electrolyte balance and replacement for now we will hold Eliquis for 48 hours prior to her colonoscopy. Patient still showing significant amount of discomfort does not reflect with seen with her CAT scan will continue at least aggressive current management. All cultures remain negative but her white blood cell continue to be quite elevated with significant thrombocytopenia affected by pocket infection creatinine remained 8.8 with bun 1.51 February 17, 2024: She continued to have severe pain not compatible to what seen on her CAT scan, infectious disease and general surgery have her on advance colitis management along with diverticulitis. Original plan was for patient to have a prep after being off anticoagulation to be up for colonoscopy probably on Tuesday. Will continue current management still able to do at least clear liquid colonoscopy on Tuesday and probably partial colectomy afterward depend on the result. February 20, 2024: Through the last few days she developed to have Despite not being able to see it through the CAT scan patient had severe diverticulitis and developed to have C. difficile colitis as well and was initiated on vancomycin orally. Her original plan for intervention to do colonoscopy is changed at this point with the active colitis waiting till its resolved. Patient remain on active management for diverticulitis along with C. difficile. Continue to have pain. No plan for colonoscopy at this point patient is back on her anticoagulation. Her hypokalemia continue to be a problem she is still on replacement therapy still on hydration as well. February 21, 2024: She continues to have severe diarrhea has not improved so far continue to have quite a bit anxiety not able to tolerate any food giving herself n.p.o. at this point her C. difficile severe still been treated with vancomycin CTA for patient best interest if adding Dificid can be better management at this point specially with the severity of her symptoms continue Questran as well. Still having slight bit of problem with her potassium being 3 will be more aggressive with IV but again because to be low because of her diarrhea. No plan at this point for colonoscopy with the severity of her illness will wait till her symptoms improve. REVIEW OF SYSTEMS: CONSTITUTIONAL: Well-developed no acute respiratory distress. EYES: No icterus sclerae, no conjunctivitis. EARS, NOSE, MOUTH, THROAT, and FACE: No sore throat, lymphadenopathy, carotid bruits or deformity. RESPIRATORY: No SOB cough or wheezes. CARDIOVASCULAR: No CP, Palpitation, PND, Orthopnea, or angina. GASTROINTESTINAL: Slight abdominal discomfort or mild pain and nausea. GENITOURINARY: Recurrent UTI with no recent stone. INTEGUMENT/BREAST: Negative for any muscular injury with mild osteoarthritis.. HEMATOLOGIC/LYMPHATIC: Negative for bleed or purpura. MUSCULOSKELTAL: Negative for Myalgia or arthralgia. NEURLOGICAL: No LOC, Sz or syncope, blurred vision dizziness or abnormality.. BEHAVIORAL/PSYCH: Negative. ENDOCRINE: Negative. PHYSICAL EXAMINATION: General Appearance: Alert, cooperative, no distress, appears stated age. Neck HEENT: Supple, no lymphadenopathy, no thyroid enlargement, no carotid bruits. Lungs: Clear to auscultation without crackles or wheezes no rhonchi, no deformity. Chest Wall: Chest wall normal expansion with deep inspiration no tenderness and no deformity was found on exam, no costochondral pain or discomfort. Heart: Regular rate and rhythm, S1, S2 normal, no murmur, rub or gallop. Back: Symmetric, no curvature, ROM normal, no CVA tenderness. Abdomen: Soft positive bowel sound no organomegaly slight discomfort in the lower abdominal region area both right and left and mid lower abdominal region not able to feel any mass at this point. Extremities: Extremities normal, atraumatic, no cyanosis or edema. Pulses: 2+ and symmetric. Skin: Skin color, texture, tugor normal, no rashes or lesions. Neurologic: Alert oriented x3 cranial nerves II through XII intact, no motor deficit, no abnormal balance or gait. ASSESSMENT AND PLAN: _Severe abdominal pain: Consistent with severe active diverticulitis and colitis without perforation. Continue metronidazole she is off Unasyn or Zosyn. _C. difficile colitis: Continue vancomycin orally for now. Along with Questran, she still not doing well may be consideration for ID to switch patient to Dificid at this point. _Patient had UTI was treated with Unasyn and Zosyn off medication for now. _Severe abdominal pain: With the severity of her diverticulitis along with a colitis both causing symptoms. _Acute diverticulitis with? Of colitis: Slightly with worsening symptoms with C. difficile continue to treat C. difficile as well. _Hypertension: Remain on lisinopril 10 mg a day we will continue medication _Obstructive sleep apnea: Continue CPAP on regular basis. _History of pulmonary embolism: Continue Eliquis 5 mg twice a day. _Chronic anemia: Stable on iron supplement with ferrous sulfate 325 mg a day still on vitamin B12 supplement. _Chronic depression: Continue Wellbutrin SR 12 mg twice a day _Neuropathy and chronic pain syndrome: Was on Lyrica still using hydrocodone on as-needed basis. _Recent history of UTI: Off antibiotic at this point. _Gout: Continue allopurinol 100 mg daily. Prognosis: Guarded. Discussion: She continues to have severe colitis from C. difficile continue to treat her symptoms watch for dehydration and continue to correct her potassium level. Severity of her abdominal pain still more than what able to manage at home specially with the severity of diarrhea as well. Objective - Vital Signs Vital signs: Vital Signs Temp 97.4 F L 02/21/24 01:26 Pulse 79 02/21/24 01:26 Resp 18 02/21/24 01:26 BP 153/88 02/21/24 04:09 Pulse Ox 99 02/21/24 01:26 FiO2 Intake & Output 02/20/24 02/20/24 02/21/24 06:59 18:59 06:59 Intake Total 200 Output Total 1 Balance -1 200 Intake: Intake, IV Titration 200 Amount metroNIDAZOLE-NS PMX 500 200 mg In Saline 1 100ml.bag @ 100 mls/hr IVPB Q8HR [facility] Rx#:[id number] Output: Urine 1 Other: Voiding Method Bedside Commode Bedside Commode # Voids 1 # Bowel Movements 3 1 - Labs CBC & Chem 7: 02/20/24 06:06 02/21/24 16:34 Labs: Abnormal Lab Results - Last 24 Hours (Table) 02/20/24 02/20/24 02/20/24 Range/Units 06:06 06:06 16:46 RBC 3.49 L (4.10-5.20) X 10*6/uL Hgb 10.6 L (12.0-15.0) g/dL Hct 31.7 L (37.2-46.3) % Immature Gran # 0.34 H (0.00-0.04) X 10*3/uL Monocytes # 1.98 H (0.20-1.00) X 10*3/uL Potassium 2.8 L 2.7 L* (3.5-5.5) mmol/L Chloride 112 H (96-109) mmol/L Carbon Dioxide 20.7 L (21.6-31.8) mmol/L Anion Gap 12.30 H (4.00-12.00) mmol/L BUN 4.4 L (9.0-27.0) mg/dL Creatinine 0.5 L (0.6-1.5) mg/dL BUN/Creatinine Ratio 8.80 L (12.00-20.00) Ratio Calcium 8.6 L (8.7-10.3) mg/dL 02/20/24 Range/Units 23:40 RBC (4.10-5.20) X 10*6/uL Hgb (12.0-15.0) g/dL Hct (37.2-46.3) % Immature Gran # (0.00-0.04) X 10*3/uL Monocytes # (0.20-1.00) X 10*3/uL Potassium 3.1 L (3.5-5.5) mmol/L Chloride (96-109) mmol/L Carbon Dioxide (21.6-31.8) mmol/L Anion Gap (4.00-12.00) mmol/L BUN (9.0-27.0) mg/dL Creatinine (0.6-1.5) mg/dL BUN/Creatinine Ratio (12.00-20.00) Ratio Calcium (8.7-10.3) mg/dL Microbiology - Last 24 Hours (Table) 02/14/24 21:45 Blood Culture - Final Blood 02/14/24 21:30 Blood Culture - Final Blood
[2024-02-22 07:27] LABS: Basophils # (A) 0.1 k/uL (0-0.2); Basophils % (A) 1 %; Eosinophils # (A) 0.1 k/uL (0-0.7); Eosinophils % (A) 1 %; HCT 40.9 % (34.0-46.0); HGB 13.6 gm/dL (11.4-16.0); Lymphocytes # (A) 2.3 k/uL (1.0-4.8); Lymphocytes % (A) 22 %; MCH 29.9 pg (25.0-35.0); MCHC 33.2 g/dL (31.0-37.0); MCV 90.1 fL (80.0-100.0); Mean Platelet Volume 8.4; Monocytes # (A) 1.9 k/uL (0-1.0); Monocytes % (A) 19 %; Neutrophils # (A) 5.4 k/uL (1.3-7.7); Neutrophils % (A) 54 %; Platelet Count 201 k/uL (150-450); RBC 4.54 m/uL (3.80-5.40); RDW 14.1 % (11.5-15.5); WBC 10.1 k/uL (3.8-10.6)
[2024-02-22 07:57] LABS: ALT 17 U/L (4-34); African American GFR (CKD) >90 (>60 ml/min/1.73 sqM); Albumin/Globulin Ratio 1.1; Anion Gap 9 mmol/L; Blood Urea Nitrogen <2 mg/dL (7-17); Calcium 9.3 mg/dL (8.4-10.2); Carbon Dioxide 20 mmol/L (22-30); Chloride 112 mmol/L (98-107); Globulin 2.7 g/dL; Glucose 93 mg/dL (74-99); Non-African American GFR(CKD) >90 (>60 ml/min/1.73 sqM); Sodium 141 mmol/L (137-145); Total Bilirubin 0.7 mg/dL (0.2-1.3); Total Protein 5.7 g/dL (6.3-8.2)
[2024-02-22 08:03] LABS: AST 29 U/L (14-36); Alkaline Phosphatase 71 U/L (38-126); Magnesium 1.3 mg/dL (1.6-2.3); Potassium 4.1 mmol/L (3.5-5.1)
[2024-02-22 12:30] VITALS: BMI 32.1
--- NOTE | 2024-02-22 15:34 | P.PN ---
Subjective Progress Note Date: 02/22/24 CHIEF COMPLAINT: Abdominal pain HISTORY OF PRESENT ILLNESS: Patient continues to report diarrhea. She describes a jelly type stool. Denies any blood in the stools. There is more substance to the stools. Denies any nausea or vomiting. Her abdominal pain is improving. Afebrile. WBC 10.1 PHYSICAL EXAM: VITAL SIGNS: Reviewed GENERAL: Well-developed in no acute distress. HEENT: No sclera icterus. Extraocular movements grossly intact. Moist buccal mucosa. Head is atraumatic, normocephalic. Hears conversational speech. No nasal drainage. NECK: Supple without lymphadenopathy. CHEST: Non-labored respirations and equal bilateral excursions. CARDIOVASCULAR: Palpable 2+ radial pulses. ABDOMEN: Soft. Nondistended. MUSCULOSKELETAL: No clubbing or cyanosis. NEUROLOGIC: No focal or lateralizing signs. Cranial nerves II through XII grossly intact. PSYCH: Appropriate affect. Alert and oriented to person, place and time. SKIN: Well perfused. Good skin turgor. ASSESSMENT: 1. C. difficile colitis 2. Abdominal pain due to C. difficile colitis 3. Hypokalemia improved 4. Chronic antibiotic management for chronic UTI PLAN: -Continue C. difficile management -Continue n.p.o. except for popsicles and ice chips Physician Digital Marketing Intern note has been reviewed by physician. Signing provider agrees with the documented findings, assessment, and plan of care. Physician note: Patient's at bedside. Additional questions answered. Clinically, his symptoms have improved once she had bowel rest. May introduced low fiber diet with low sugar and dairy free to reduce risk for diarrhea. Recommend continued management for C. difficile. No acute surgical intervention needed at this time. Objective - Vital Signs Vital signs: Vital Signs Temp 97.6 F 02/22/24 11:54 Pulse 82 02/22/24 11:54 Resp 16 02/22/24 11:54 BP 157/83 02/22/24 11:54 Pulse Ox 98 02/22/24 11:54 FiO2 Intake & Output 02/21/24 02/22/24 02/22/24 18:59 06:59 18:59 Intake Total 240 100 Output Total 1 Balance 239 100 Weight 92.986 kg Intake: Intake, IV Titration 100 Amount metroNIDAZOLE-NS PMX 500 100 mg In Saline 1 100ml.bag @ 100 mls/hr IVPB Q8HR [facility] Rx#:[id number] Oral 240 Output: Stool 1 Other: Voiding Method Bedside Commode Bedside Commode Bedside Commode # Voids 4 3 # Bowel Movements 3 3 - Labs CBC & Chem 7: 02/22/24 06:54 02/22/24 06:54 Labs: Abnormal Lab Results - Last 24 Hours (Table) 02/22/24 02/22/24 Range/Units 06:54 06:54 Monocytes # 1.9 H (0-1.0) k/uL Chloride 112 H (98-107) mmol/L Carbon Dioxide 20 L (22-30) mmol/L BUN <2 L (7-17) mg/dL Creatinine 0.47 L (0.52-1.04) mg/dL Magnesium 1.3 L (1.6-2.3) mg/dL Total Protein 5.7 L (6.3-8.2) g/dL Albumin 3.0 L (3.5-5.0) g/dL
--- NOTE | 2024-02-22 21:58 | P.PN ---
Subjective Progress Note Date: 02/21/24 Principal diagnosis: Reason for follow-up is colitis and leukocytosis Patient is a 74-year-old female with a past medical history significant for hypertension history of PE sleep apnea factor V Leiden deficiency patient apparently has been on multiple courses of antibiotic for UTI, present to the hospital significant diarrhea CT abdominal pelvis and mention colitis versus diverticulitis, ID consulted because of worsening white count and diarrhea. On today's evaluation that is 02/20/2024,the patient denies any fever or any chills, patient is breathing comfortably on room air, the patient denies chest pain shortness of breath and no significant cough, patient still complaining of lower abdominal pain denies any nausea or vomiting still having significant diarrhea no blood or mucus in the stool No lab draw today Objective - Vital Signs Vital signs: Vital Signs Temp 98.3 F 02/21/24 11:51 Pulse 77 02/21/24 11:51 Resp 16 02/21/24 11:51 BP 145/78 02/21/24 11:51 Pulse Ox 95 02/21/24 11:51 FiO2 Intake & Output 02/20/24 02/21/24 02/21/24 18:59 06:59 18:59 Intake Total 200 Output Total 1 Balance 200 -1 Intake: Intake, IV Titration 200 Amount metroNIDAZOLE-NS PMX 500 200 mg In Saline 1 100ml.bag @ 100 mls/hr IVPB Q8HR [facility] Rx#:[id number] Output: Stool 1 Other: Voiding Method Bedside Commode Bedside Commode # Voids 1 # Bowel Movements 1 - Exam GENERAL DESCRIPTION: An elderly female lying in bed in no distress RESPIRATORY SYSTEM: Unlabored breathing , decreased breath sounds at bases HEART: S1 S2 regular rate and rhythm , ABDOMEN: Soft , mild tenderness EXTREMITIES: No edema feet - Labs CBC & Chem 7: 02/22/24 06:54 02/22/24 06:54 Labs: Abnormal Lab Results - Last 24 Hours (Table) 02/20/24 02/20/24 02/21/24 Range/Units 16:46 23:40 06:34 Potassium 2.7 L* 3.1 L 3.2 L (3.5-5.1) mmol/L Assessment and Plan (1) C. difficile colitis Current Visit: Yes Status: Acute Code(s): A04.72 - ENTEROCOLITIS D/T CLOSTRIDIUM DIFFICILE, NOT SPCF RECUR SNOMED Code(s): 168201329 Plan: 1patient presented to hospital with abdominal pain and extensive diarrhea and this patient has been extensive course of oral antibiotic and outpatient for UTI CT has not been very clear as for his reporting with questionable diverticulitis versus colitis however clinically patient is likely behaving as C. difficile colitis 2-patient came back positive stool for C. difficile PCR 3-patient still complaining of abdominal pain and significant diarrhea we will increase the dose of vancomycin to 500 mg p.o. every 6 hours continue with IV Flagyl Dictation was produced using [employer] dictation software. please excuse any grammatical, word or spelling errors. Time with Patient: Less than 30
--- NOTE | 2024-02-22 21:59 | P.PN ---
Subjective Progress Note Date: 02/22/24 Principal diagnosis: Reason for follow-up is colitis and leukocytosis Patient is a 74-year-old female with a past medical history significant for hypertension history of PE sleep apnea factor V Leiden deficiency patient apparently has been on multiple courses of antibiotic for UTI, present to the hospital significant diarrhea CT abdominal pelvis and mention colitis versus diverticulitis, ID consulted because of worsening white count and diarrhea. On today's evaluation that is 02/22/2024,the patient remains to be afebrile, patient is on room air not requiring supplemental oxygen and denies any shortness of breath no chest pain or cough.Patient denies having any nausea or vomiting, patient mention improvement in her abdominal pain compared to yesterday and diarrhea has slowed down Patient did have a white count of 10.1, creatinine 0.47 Objective - Vital Signs Vital signs: Vital Signs Temp 97.6 F 02/22/24 11:54 Pulse 82 02/22/24 11:54 Resp 16 02/22/24 11:54 BP 157/83 02/22/24 11:54 Pulse Ox 98 02/22/24 11:54 FiO2 Intake & Output 02/21/24 02/22/24 02/22/24 18:59 06:59 18:59 Intake Total 240 100 Output Total 1 Balance 239 100 Weight 92.986 kg Intake: Intake, IV Titration 100 Amount metroNIDAZOLE-NS PMX 500 100 mg In Saline 1 100ml.bag @ 100 mls/hr IVPB Q8HR [facility] Rx#:[id number] Oral 240 Output: Stool 1 Other: Voiding Method Bedside Commode Bedside Commode Bedside Commode # Voids 4 3 # Bowel Movements 3 3 - Exam GENERAL DESCRIPTION: An elderly female lying in bed in no distress RESPIRATORY SYSTEM: Unlabored breathing , decreased breath sounds at bases HEART: S1 S2 regular rate and rhythm , ABDOMEN: Soft , mild tenderness EXTREMITIES: No edema feet - Labs CBC & Chem 7: 02/22/24 06:54 02/22/24 06:54 Labs: Abnormal Lab Results - Last 24 Hours (Table) 02/22/24 02/22/24 Range/Units 06:54 06:54 Monocytes # 1.9 H (0-1.0) k/uL Chloride 112 H (98-107) mmol/L Carbon Dioxide 20 L (22-30) mmol/L BUN <2 L (7-17) mg/dL Creatinine 0.47 L (0.52-1.04) mg/dL Magnesium 1.3 L (1.6-2.3) mg/dL Total Protein 5.7 L (6.3-8.2) g/dL Albumin 3.0 L (3.5-5.0) g/dL Assessment and Plan (1) C. difficile colitis Current Visit: Yes Status: Acute Code(s): A04.72 - ENTEROCOLITIS D/T CLOSTRIDIUM DIFFICILE, NOT SPCF RECUR SNOMED Code(s): 311336655 Plan: 1patient presented to hospital with abdominal pain and extensive diarrhea and this patient has been extensive course of oral antibiotic and outpatient for UTI CT has not been very clear as for his reporting with questionable diverticulitis versus colitis however clinically patient is likely behaving as C. difficile colitis 2-patient came back positive stool for C. difficile PCR 3-patient seem to have shown some improvement with adjustment dose of vancomycin to 500 mg p.o. every 6 hours which will be continued along with Questran for symptomatic relief and monitor clinical course closely Dictation was produced using [employer] dictation software. please excuse any grammatical, word or spelling errors. Time with Patient: Less than 30
--- NOTE | 2024-02-23 06:08 | P.PN ---
Subjective Progress Note Date: 02/22/24 HISTORY OF PRESENT ILLNESS: 73-year-old one of our office patient with history of chronic anemia, obstructive sleep apnea on CPAP, recurrent gout, hypertension, hyperlipidemia, pulmonary embolism on anticoagulation, generalized depression anxiety attacks, recurrent abdominal pain diverticulosis, recurrent UTI, who had a previous history of robotic assisted laparoscopic reduction of incarcerated transverse colon, repair of recurrent incarcerated incisional ventral hernia with lysis of adhesion few times in the past. She also has chronic distal dermatitis, iron deficiency anemia, chronic neuropathy. She presented to the emergency department at [facility] on 02/14/2024 significant abdominal discomfort with nausea and diarrhea or pain and discomfort was in the middle abdominal area she is known history of recurrent UTI and diverticulitis she is seen few subspecialist in the past including gastroenterology and general surgery was treated for lysis of adhesions along with incarcerated hernia in the past successfully. At the time of the presentation to the emergency department laboratory evaluation showed 16.7 of white blood cell with normal hemoglobin and slight left shift, her lipase and amylase were normal, glucose was mildly elevated calcium level was elevated as well. No UA result were done at the time but CAT scan of the abdomen pelvis shows colonic diverticular disease with question of mild sigmoid pericolonic fat stranding which could indicate mild acute diverticulitis or focal colitis. With patient's current history and symptoms send that being admitted to the hospital for acute diverticulitis with UTI not full treatment as an outpatient. From the recurrent symptom patient has with diverticulitis and having extremity flareup last few years the patient probably should explore the possibility of surgical intervention, apparently had seen Dr. Hummel in the past patient panicked not to do surgery at that point. Will consult Dr. Hummel at this time for reevaluation and see if patient need to be rescoped again and need to explore the possibility of partial colectomy. 02/15/2024: She is continue to have significant abdominal pain and discomfort especially in the lower abdominal region and continue to run low-grade te mperature antibiotic will be expanded furthermore to add Flagyl IV. Also will consult general surgery for possible need to have an intervention eventually for partial resection around the area or her diverticulitis is very active. Repeat laboratory today continue to show white blood cell of 16,000 potassium is down to 3.0 will use potassium replacement protocol no effect on the kidney function so far. 02/16/2024: She continues to have significant abdominal pain is not improving as fast as expected. She was kept n.p.o. for potential testing patient is not going for colonoscopy till Tuesday she will start on antibiotics, clear liquid diet will advance gradually, continue electrolyte balance and replacement for now we will hold Eliquis for 48 hours prior to her colonoscopy. Patient still showing significant amount of discomfort does not reflect with seen with her CAT scan will continue at least aggressive current management. All cultures remain negative but her white blood cell continue to be quite elevated with significant thrombocytopenia affected by pocket infection creatinine remained 8.8 with bun 1.51 February 17, 2024: She continued to have severe pain not compatible to what seen on her CAT scan, infectious disease and general surgery have her on advance colitis management along with diverticulitis. Original plan was for patient to have a prep after being off anticoagulation to be up for colonoscopy probably on Tuesday. Will continue current management still able to do at least clear liquid colonoscopy on Tuesday and probably partial colectomy afterward depend on the result. February 20, 2024: Through the last few days she developed to have Despite not being able to see it through the CAT scan patient had severe diverticulitis and developed to have C. difficile colitis as well and was initiated on vancomycin orally. Her original plan for intervention to do colonoscopy is changed at this point with the active colitis waiting till its resolved. Patient remain on active management for diverticulitis along with C. difficile. Continue to have pain. No plan for colonoscopy at this point patient is back on her anticoagulation. Her hypokalemia continue to be a problem she is still on replacement therapy still on hydration as well. February 21, 2024: She continues to have severe diarrhea has not improved so far continue to have quite a bit anxiety not able to tolerate any food giving herself n.p.o. at this point her C. difficile severe still been treated with vancomycin CTA for patient best interest if adding Dificid can be better management at this point specially with the severity of her symptoms continue Questran as well. Still having slight bit of problem with her potassium being 3 will be more aggressive with IV but again because to be low because of her diarrhea. No plan at this point for colonoscopy with the severity of her illness will wait till her symptoms improve. February 22, 2024: Patient diarrhea had slowed down slightly so far, still on vancomycin Questran and Flagyl, patient was kept n.p.o. last 24 hours as a cleansing should be started on clear liquid diet and advancing hopefully more. According to her she had about 4-5 bowel movement a day last 24 hours and was less severe than the day before. Her potassium with a supplement hide improve And back to 4.1. Electrolyte panel with kidney function has been much better and patient is not anemic at this point. I met with the and the son today and explained to them the patient's condition that being debilitated might benefit from doing some rehab when she is ready to leave the hospital hopefully over the next day or 2. The plan at this point to hold off on any intervention until her C. difficile clears until her symptoms are completely improved and settled for at least 2 weeks straight before going for any further intervention. Also her UTI need to be managed without antibiotic unless becomes really symptomatic might have to consult with ID for better choice of antibiotic for UTI if needed. REVIEW OF SYSTEMS: CONSTITUTIONAL: Well-developed no acute respiratory distress. EYES: No icterus sclerae, no conjunctivitis. EARS, NOSE, MOUTH, THROAT, and FACE: No sore throat, lymphadenopathy, carotid bruits or deformity. RESPIRATORY: No SOB cough or wheezes. CARDIOVASCULAR: No CP, Palpitation, PND, Orthopnea, or angina. GASTROINTESTINAL: Slight abdominal discomfort or mild pain and nausea. GENITOURINARY: Recurrent UTI with no recent stone. INTEGUMENT/BREAST: Negative for any muscular injury with mild osteoarthritis.. HEMATOLOGIC/LYMPHATIC: Negative for bleed or purpura. MUSCULOSKELTAL: Negative for Myalgia or arthralgia. NEURLOGICAL: No LOC, Sz or syncope, blurred vision dizziness or abnormality.. BEHAVIORAL/PSYCH: Negative. ENDOCRINE: Negative. PHYSICAL EXAMINATION: General Appearance: Alert, cooperative, no distress, appears stated age. Neck HEENT: Supple, no lymphadenopathy, no thyroid enlargement, no carotid bruits. Lungs: Clear to auscultation without crackles or wheezes no rhonchi, no deformity. Chest Wall: Chest wall normal expansion with deep inspiration no tenderness and no deformity was found on exam, no costochondral pain or discomfort. Heart: Regular rate and rhythm, S1, S2 normal, no murmur, rub or gallop. Back: Symmetric, no curvature, ROM normal, no CVA tenderness. Abdomen: Soft positive bowel sound no organomegaly slight discomfort in the lower abdominal region area both right and left and mid lower abdominal region not able to feel any mass at this point. Extremities: Extremities normal, atraumatic, no cyanosis or edema. Pulses: 2+ and symmetric. Skin: Skin color, texture, tugor normal, no rashes or lesions. Neurologic: Alert oriented x3 cranial nerves II through XII intact, no motor deficit, no abnormal balance or gait. ASSESSMENT AND PLAN: _Severe abdominal pain: Symptoms are slightly better continue to be treated for active C. difficile colitis at this point. _C. difficile colitis: Still symptomatic despite using Flagyl along with vancomycin and Questran whether she can benefit from moving to Dificid or not will be left up to infectious disease. _Recurrent chronic UTI with multiple episode required antibiotics was on Unasyn and Zosyn has been off medication completely patient is not symptomatic at this point. _Acute diverticulitis with? Of colitis: The picture is more colitis at this point with C. difficile to continue current management plan is done patient will require probably in several weeks to have a colonoscopy when all subtle and stable. _Debility: Patient will continue to do physical therapy and will benefit from going to SNF. _Hypertension: Remain on lisinopril 10 mg a day we will continue medication _Obstructive sleep apnea: Continue CPAP on regular basis. _History of pulmonary embolism: Continue Eliquis 5 mg twice a day. _Chronic anemia: Stable on iron supplement with ferrous sulfate 325 mg a day still on vitamin B12 supplement. _Chronic depression: Continue Wellbutrin SR 12 mg twice a day _Neuropathy and chronic pain syndrome: Was on Lyrica still using hydrocodone on as-needed basis. _Recent history of UTI: Off antibiotic at this point. _Gout: Continue allopurinol 100 mg daily. Prognosis: Guarded. Discussion: I had a long meeting with the and the son all their question were answered their concern was addressed, as of now patient will continue doing physical therapy when she is ready to leave the hospital most likely will be going to one of the SNF. Objective - Vital Signs Vital signs: Vital Signs Temp 97.7 F 02/22/24 02:00 Pulse 90 02/22/24 02:00 Resp 16 02/21/24 11:51 BP 154/94 02/22/24 02:00 Pulse Ox 99 02/22/24 02:00 FiO2 Intake & Output 02/21/24 02/21/24 02/22/24 06:59 18:59 06:59 Intake Total 240 100 Output Total 1 Balance 239 100 Intake: Intake, IV Titration 100 Amount metroNIDAZOLE-NS PMX 500 100 mg In Saline 1 100ml.bag @ 100 mls/hr IVPB Q8HR ON LICENSE OF [facility] Rx#:[id number] Oral 240 Output: Stool 1 Other: Voiding Method Bedside Commode Bedside Commode Bedside Commode # Voids 1 4 3 # Bowel Movements 1 3 3 - Labs CBC & Chem 7: 02/22/24 06:54 02/22/24 06:54 Labs: Abnormal Lab Results - Last 24 Hours (Table) 02/21/24 Range/Units 06:34 Potassium 3.2 L (3.5-5.1) mmol/L
--- NOTE | 2024-02-23 11:11 | P.PN ---
Subjective Progress Note Date: 02/23/24 CHIEF COMPLAINT: Abdominal pain HISTORY OF PRESENT ILLNESS: Patient complains of diarrhea. Patient reports that she ate a few bites of eggs and sausage and then had diarrhea this morning. Afebrile. Magnesium 1.3 PHYSICAL EXAM: VITAL SIGNS: Reviewed GENERAL: Well-developed in no acute distress. HEENT: No sclera icterus. Extraocular movements grossly intact. Moist buccal mucosa. Head is atraumatic, normocephalic. Hears conversational speech. No nasal drainage. NECK: Supple without lymphadenopathy. CHEST: Non-labored respirations and equal bilateral excursions. CARDIOVASCULAR: Palpable 2+ radial pulses. ABDOMEN: Soft. Nondistended. MUSCULOSKELETAL: No clubbing or cyanosis. NEUROLOGIC: No focal or lateralizing signs. Cranial nerves II through XII grossly intact. PSYCH: Appropriate affect. Alert and oriented to person, place and time. SKIN: Well perfused. Good skin turgor. ASSESSMENT: 1. C. difficile colitis 2. Abdominal pain due to C. difficile colitis 3. Hypokalemia improved 4. Chronic antibiotic management for chronic UTI 5. Hypomagnesemia PLAN: -Continue C. difficile management per ID service -add Lactobacillus acidophilus -Continue low fiber diet. Recommend to avoid sugary foods and avoid dairy -Replace magnesium. Repeat mg level in AM Physician Propagator Laborer note has been reviewed by physician. Signing provider agrees with the documented findings, assessment, and plan of care. Objective - Vital Signs Vital signs: Vital Signs Temp 99.0 F 02/23/24 08:03 Pulse 94 02/23/24 08:03 Resp 19 02/23/24 08:03 BP 160/78 02/23/24 08:03 Pulse Ox 97 02/23/24 08:03 FiO2 Intake & Output 02/22/24 02/23/24 02/23/24 18:59 06:59 18:59 Weight 92.986 kg Other: Voiding Method Bedside Commode Bedside Commode # Voids 2 3 - Labs CBC & Chem 7: 02/22/24 06:54 02/22/24 06:54 Labs: Abnormal Lab Results - Last 24 Hours (Table) 02/23/24 Range/Units 08:04 Magnesium 1.3 L (1.6-2.3) mg/dL
[2024-02-23] MEDS: MAGNESIUM SULFATE-D5W PMX 1 GM in DEXTROSE/WATER 1 100ML.BAG IVPB SCH (11:53)
[2024-02-23] MEDS: LACTOBACILLUS ACIDOPHILUS/PECT 1 EACH CAPSULE PO SCH (11:54)
--- NOTE | 2024-02-23 13:49 | P.PN ---
Subjective Progress Note Date: 02/23/24 Principal diagnosis: Reason for follow-up is colitis and leukocytosis Patient is a 74-year-old female with a past medical history significant for hypertension history of PE sleep apnea factor V Leiden deficiency patient apparently has been on multiple courses of antibiotic for UTI, present to the hospital significant diarrhea CT abdominal pelvis and mention colitis versus diverticulitis, ID consulted because of worsening white count and diarrhea. On today's evaluation that is 02/23/2024, Patient is afebrile patient is currently on room air and denies having any shortness of breath, the patient denies any chest pain or cough, the patient denies any nausea vomiting no abdominal pain has slightly Decreased intensity still complaining of significant diarrhea. No CBC was done today patient magnesium is 1.3 Objective - Vital Signs Vital signs: Vital Signs Temp 98.3 F 02/23/24 12:31 Pulse 85 02/23/24 12:31 Resp 18 02/23/24 12:31 BP 144/87 02/23/24 12:31 Pulse Ox 98 02/23/24 12:31 FiO2 Intake & Output 02/22/24 02/23/24 02/23/24 18:59 06:59 18:59 Weight 92.986 kg Other: Voiding Method Bedside Commode Bedside Commode Bedside Commode # Voids 2 3 - Exam GENERAL DESCRIPTION: An elderly female lying in bed in no distress RESPIRATORY SYSTEM: Unlabored breathing , decreased breath sounds at bases HEART: S1 S2 regular rate and rhythm , ABDOMEN: Soft , mild tenderness EXTREMITIES: No edema feet - Labs CBC & Chem 7: 02/22/24 06:54 02/22/24 06:54 Labs: Abnormal Lab Results - Last 24 Hours (Table) 02/23/24 Range/Units 08:04 Magnesium 1.3 L (1.6-2.3) mg/dL Assessment and Plan (1) C. difficile colitis Current Visit: Yes Status: Acute Code(s): A04.72 - ENTEROCOLITIS D/T CLOSTRIDIUM DIFFICILE, NOT SPCF RECUR SNOMED Code(s): 323481974 Plan: 1patient presented to hospital with abdominal pain and extensive diarrhea and this patient has been extensive course of oral antibiotic and outpatient for UTI CT has not been very clear as for his reporting with questionable diverticulitis versus colitis however clinically patient is likely behaving as C. difficile colitis 2-patient came back positive stool for C. difficile PCR 3-patient still complaining of significant diarrhea despite being on the high- dose of oral vancomycin we will go ahead and discontinue vancomycin and Flagyl and start the patient on Dificid and see clinic response Dictation was produced using [employer] dictation software. please excuse any grammatical, word or spelling errors.
[2024-02-23] MEDS: FIDAXOMICIN 200 MG TABLET PO SCH (14:35)
--- NOTE | 2024-02-24 06:05 | P.PN ---
Subjective Progress Note Date: 02/23/24 HISTORY OF PRESENT ILLNESS: 73-year-old one of our office patient with history of chronic anemia, obstructive sleep apnea on CPAP, recurrent gout, hypertension, hyperlipidemia, pulmonary embolism on anticoagulation, generalized depression anxiety attacks, recurrent abdominal pain diverticulosis, recurrent UTI, who had a previous history of robotic assisted laparoscopic reduction of incarcerated transverse colon, repair of recurrent incarcerated incisional ventral hernia with lysis of adhesion few times in the past. She also has chronic distal dermatitis, iron deficiency anemia, chronic neuropathy. She presented to the emergency department at [facility] on 02/14/2024 significant abdominal discomfort with nausea and diarrhea or pain and discomfort was in the middle abdominal area she is known history of recurrent UTI and diverticulitis she is seen few subspecialist in the past including gastroenterology and general surgery was treated for lysis of adhesions along with incarcerated hernia in the past successfully. At the time of the presentation to the emergency department laboratory evaluation showed 16.7 of white blood cell with normal hemoglobin and slight left shift, her lipase and amylase were normal, glucose was mildly elevated calcium level was elevated as well. No UA result were done at the time but CAT scan of the abdomen pelvis shows colonic diverticular disease with question of mild sigmoid pericolonic fat stranding which could indicate mild acute diverticulitis or focal colitis. With patient's current history and symptoms send that being admitted to the hospital for acute diverticulitis with UTI not full treatment as an outpatient. From the recurrent symptom patient has with diverticulitis and having extremity flareup last few years the patient probably should explore the possibility of surgical intervention, apparently had seen Dr. Hummel in the past patient panicked not to do surgery at that point. Will consult Dr. Hummel at this time for reevaluation and see if patient need to be rescoped again and need to explore the possibility of partial colectomy. 02/15/2024: She is continue to have significant abdominal pain and discomfort especially in the lower abdominal region and continue to run low-grade te mperature antibiotic will be expanded furthermore to add Flagyl IV. Also will consult general surgery for possible need to have an intervention eventually for partial resection around the area or her diverticulitis is very active. Repeat laboratory today continue to show white blood cell of 16,000 potassium is down to 3.0 will use potassium replacement protocol no effect on the kidney function so far. 02/16/2024: She continues to have significant abdominal pain is not improving as fast as expected. She was kept n.p.o. for potential testing patient is not going for colonoscopy till Tuesday she will start on antibiotics, clear liquid diet will advance gradually, continue electrolyte balance and replacement for now we will hold Eliquis for 48 hours prior to her colonoscopy. Patient still showing significant amount of discomfort does not reflect with seen with her CAT scan will continue at least aggressive current management. All cultures remain negative but her white blood cell continue to be quite elevated with significant thrombocytopenia affected by pocket infection creatinine remained 8.8 with bun 1.51 February 17, 2024: She continued to have severe pain not compatible to what seen on her CAT scan, infectious disease and general surgery have her on advance colitis management along with diverticulitis. Original plan was for patient to have a prep after being off anticoagulation to be up for colonoscopy probably on Tuesday. Will continue current management still able to do at least clear liquid colonoscopy on Tuesday and probably partial colectomy afterward depend on the result. February 20, 2024: Through the last few days she developed to have Despite not being able to see it through the CAT scan patient had severe diverticulitis and developed to have C. difficile colitis as well and was initiated on vancomycin orally. Her original plan for intervention to do colonoscopy is changed at this point with the active colitis waiting till its resolved. Patient remain on active management for diverticulitis along with C. difficile. Continue to have pain. No plan for colonoscopy at this point patient is back on her anticoagulation. Her hypokalemia continue to be a problem she is still on replacement therapy still on hydration as well. February 21, 2024: She continues to have severe diarrhea has not improved so far continue to have quite a bit anxiety not able to tolerate any food giving herself n.p.o. at this point her C. difficile severe still been treated with vancomycin CTA for patient best interest if adding Dificid can be better management at this point specially with the severity of her symptoms continue Questran as well. Still having slight bit of problem with her potassium being 3 will be more aggressive with IV but again because to be low because of her diarrhea. No plan at this point for colonoscopy with the severity of her illness will wait till her symptoms improve. February 22, 2024: Patient diarrhea had slowed down slightly so far, still on vancomycin Questran and Flagyl, patient was kept n.p.o. last 24 hours as a cleansing should be started on clear liquid diet and advancing hopefully more. According to her she had about 4-5 bowel movement a day last 24 hours and was less severe than the day before. Her potassium with a supplement hide improve And back to 4.1. Electrolyte panel with kidney function has been much better and patient is not anemic at this point. I met with the and the son today and explained to them the patient's condition that being debilitated might benefit from doing some rehab when she is ready to leave the hospital hopefully over the next day or 2. The plan at this point to hold off on any intervention until her C. difficile clears until her symptoms are completely improved and settled for at least 2 weeks straight before going for any further intervention. Also her UTI need to be managed without antibiotic unless becomes really symptomatic might have to consult with ID for better choice of antibiotic for UTI if needed. February 23, 2024: Patient is doing better Still having slight diarrhea but has improved compared to before infectious disease today decided to switch her vancomycin and Flagyl to Dificid and observe clinical response hopefully in the next 24 hours. Also from general surgery standpoint no workup needed at this point agreed to titrate diet and further workup including colonoscopy can be arranged as an outpatient when patient is feeling well. Her lab values still not showing any sign of anemia or leukocytosis and kidney function is much better so far magnesium level has been running slightly below magnesium supplement to be continue. Patient initiated some physical therapy and hopefully will be transferred to SNF as soon as she is feeling slightly better. REVIEW OF SYSTEMS: CONSTITUTIONAL: Well-developed no acute respiratory distress. EYES: No icterus sclerae, no conjunctivitis. EARS, NOSE, MOUTH, THROAT, and FACE: No sore throat, lymphadenopathy, carotid bruits or deformity. RESPIRATORY: No SOB cough or wheezes. CARDIOVASCULAR: No CP, Palpitation, PND, Orthopnea, or angina. GASTROINTESTINAL: Slight abdominal discomfort or mild pain and nausea. GENITOURINARY: Recurrent UTI with no recent stone. INTEGUMENT/BREAST: Negative for any muscular injury with mild osteoarthritis.. HEMATOLOGIC/LYMPHATIC: Negative for bleed or purpura. MUSCULOSKELTAL: Negative for Myalgia or arthralgia. NEURLOGICAL: No LOC, Sz or syncope, blurred vision dizziness or abnormality.. BEHAVIORAL/PSYCH: Negative. ENDOCRINE: Negative. PHYSICAL EXAMINATION: General Appearance: Alert, cooperative, no distress, appears stated age. Neck HEENT: Supple, no lymphadenopathy, no thyroid enlargement, no carotid bruits. Lungs: Clear to auscultation without crackles or wheezes no rhonchi, no deformity. Chest Wall: Chest wall normal expansion with deep inspiration no tenderness and no deformity was found on exam, no costochondral pain or discomfort. Heart: Regular rate and rhythm, S1, S2 normal, no murmur, rub or gallop. Back: Symmetric, no curvature, ROM normal, no CVA tenderness. Abdomen: Soft positive bowel sound no organomegaly slight discomfort in the lower abdominal region area both right and left and mid lower abdominal region not able to feel any mass at this point. Extremities: Extremities normal, atraumatic, no cyanosis or edema. Pulses: 2+ and symmetric. Skin: Skin color, texture, tugor normal, no rashes or lesions. Neurologic: Alert oriented x3 cranial nerves II through XII intact, no motor deficit, no abnormal balance or gait. ASSESSMENT AND PLAN: _Severe abdominal pain: Symptoms are slightly better continue to be treated for active C. difficile colitis will be on vancomycin on Dificid continue probiotic titrate her diet more. _C. difficile colitis: Continue Questran and fiber diet patient did not do very well on vancomycin and Flagyl antibiotic will be switched to Dificid by infectious disease today. _Recurrent chronic UTI with multiple episode required antibiotics was on Unasyn and Zosyn has been off medication completely patient is not symptomatic at this point. _Chronic diverticulitis with recurrent attacks along with? Of colitis: The picture is more colitis at this point with C. difficile to continue current management plan is done patient will require probably in several weeks to have a colonoscopy when all subtle and stable. After being stable from her C. difficile the patient will benefit from going for colonoscopy to decide if she needs any intervention. _Debility: Patient will continue to do physical therapy and will benefit from going to SNF. _Hypertension: Remain on lisinopril 10 mg a day we will continue medication _Obstructive sleep apnea: Continue CPAP on regular basis. _History of pulmonary embolism: Continue Eliquis 5 mg twice a day. _Chronic anemia: Stable on iron supplement with ferrous sulfate 325 mg a day still on vitamin B12 supplement. _Chronic depression: Continue Wellbutrin SR 12 mg twice a day _Neuropathy and chronic pain syndrome: Was on Lyrica still using hydrocodone on as-needed basis. _Recent history of UTI: Off antibiotic at this point. _Gout: Continue allopurinol 100 mg daily. Prognosis: Fair Discussion: Switch patient to Dificid today, titrate diet, continue physical therapy and dialysis social worker still looking into SNF. Objective - Vital Signs Vital signs: Vital Signs Temp 98.6 F 02/23/24 02:00 Pulse 91 02/23/24 02:00 Resp 16 02/23/24 02:00 BP 155/78 02/23/24 02:00 Pulse Ox 99 02/23/24 02:00 FiO2 Intake & Output 02/22/24 02/22/24 02/23/24 06:59 18:59 06:59 Intake Total 100 Balance 100 Weight 92.986 kg Intake: Intake, IV Titration 100 Amount metroNIDAZOLE-NS PMX 500 100 mg In Saline 1 100ml.bag @ 100 mls/hr IVPB Q8HR [facility] Rx#:[id number] Other: Voiding Method Bedside Commode Bedside Commode Bedside Commode # Voids 3 2 3 # Bowel Movements 3 - Labs CBC & Chem 7: 02/22/24 06:54 02/22/24 06:54 Labs: Abnormal Lab Results - Last 24 Hours (Table) 02/22/24 02/22/24 Range/Units 06:54 06:54 Monocytes # 1.9 H (0-1.0) k/uL Chloride 112 H (98-107) mmol/L Carbon Dioxide 20 L (22-30) mmol/L BUN <2 L (7-17) mg/dL Creatinine 0.47 L (0.52-1.04) mg/dL Magnesium 1.3 L (1.6-2.3) mg/dL Total Protein 5.7 L (6.3-8.2) g/dL Albumin 3.0 L (3.5-5.0) g/dL
[2024-02-24 08:38] LABS: HCT 36.4 % (37.2-46.3); HGB 11.9 g/dL (12.0-15.0); MCH 29.8 pg (27.0-32.0); MCHC 32.7 g/dL (32.0-37.0); Mean Platelet Volume 10.8 FL (9.5-12.2); NRBC Per 100 WBC 0 X 10*3/uL (0.00-0.01); Platelet Count 192 X 10*3/uL (140-440); RDW 14.5 % (11.5-14.5); WBC 8.58 X 10*3/uL (4.50-10.00)
[2024-02-24 08:43] LABS: Magnesium 1.8 mg/dL (1.5-2.4)
[2024-02-24 09:08] LABS: BUN/Creat Ratio <5.83 Ratio (12.00-20.00); Blood Urea Nitrogen <3.5 mg/dL (9.0-27.0); Carbon Dioxide 20.9 mmol/L (21.6-31.8); Chloride 108 mmol/L (96-109); Glucose 107 mg/dL (70-110); Potassium 3.2 mmol/L (3.5-5.5); Sodium 141 mmol/L (135-145)
[2024-02-24 09:09] LABS: ALT 9 U/L (8-44); AST 18 U/L (13-35); Albumin 3.2 g/dL (3.8-4.9); Albumin/Globulin Ratio 1.68 Ratio (1.60-3.17); Alkaline Phosphatase 66 U/L (41-126); Calcium 8.8 mg/dL (8.7-10.3); Globulin 1.9 g/dL (1.6-3.3); Total Bilirubin 0.3 mg/dL (0.3-1.2); Total Protein 5.1 g/dL (6.2-8.2)
[2024-02-24 11:09] VITALS: RESP 18
--- NOTE | 2024-02-24 12:48 | P.DS ---
Providers Date of admission: 02/16/24 16:25 Attending physician: Luis Adames Consults: 02/14/24 20:38 Consult Physician Routine Consulting Provider: Lee Ann Hummel Consult Reason/Comments: ticitis Do you want consulting provider notified?: Yes 02/15/24 08:24 Consult Physician Routine Consulting Provider: Lee Ann Hummel Consult Reason/Comments: recurrent Diverticulitis Do you want consulting provider notified?: Yes 02/17/24 14:49 Consult Physician Routine Consulting Provider: Amber Drummond Consult Reason/Comments: Severe colitis, hx of longterm antibiotics Do you want consulting provider notified?: Yes Primary care physician: [facility] Course: HISTORY OF PRESENT ILLNESS: 73-year-old one of our office patient with history of chronic anemia, ob structive sleep apnea on CPAP, recurrent gout, hypertension, hyperlipidemia, pulmonary embolism on anticoagulation, generalized depression anxiety attacks, recurrent abdominal pain diverticulosis, recurrent UTI, who had a previous history of robotic assisted laparoscopic reduction of incarcerated transverse colon, repair of recurrent incarcerated incisional ventral hernia with lysis of adhesion few times in the past. She also has chronic distal dermatitis, iron deficiency anemia, chronic neuropathy. She presented to the emergency department at [facility] on 02/14/2024 significant abdominal discomfort with nausea and diarrhea or pain and discomfort was in the middle abdominal area she is known history of recurrent UTI and diverticulitis she is seen few subspecialist in the past including gastroenterology and general surgery was treated for lysis of adhesions along with incarcerated hernia in the past successfully. At the time of the presentation to the emergency department laboratory evaluation showed 16.7 of white blood cell with normal hemoglobin and slight left shift, her lipase and amylase were normal, glucose was mildly elevated calcium level was elevated as well. No UA result were done at the time but CAT scan of the abdomen pelvis shows colonic diverticular disease with question of mild sigmoid pericolonic fat stranding which could indicate mild acute diverticulitis or focal colitis. With patient's current history and symptoms send that being admitted to the hospital for acute diverticulitis with UTI not full treatment as an outpatient. From the recurrent symptom patient has with diverticulitis and having extremity flareup last few years the patient probably should explore the possibility of surgical intervention, apparently had seen Dr. Hummel in the past patient panicked not to do surgery at that point. Will consult Dr. Hummel at this time for reevaluation and see if patient need to be rescoped again and need to explore the possibility of partial colectomy. 02/15/2024: She is continue to have significant abdominal pain and discomfort especially in the lower abdominal region and continue to run low-grade temperature antibiotic will be expanded furthermore to add Flagyl IV. Also will consult general surgery for possible need to have an intervention eventually for partial resection around the area or her diverticulitis is very active. Repeat laboratory today continue to show white blood cell of 16,000 potassium is down to 3.0 will use potassium replacement protocol no effect on the kidney function so far. 02/16/2024: She continues to have significant abdominal pain is not improving as fast as expected. She was kept n.p.o. for potential testing patient is not going for colonoscopy till Tuesday she will start on antibiotics, clear liquid diet will advance gradually, continue electrolyte balance and replacement for now we will hold Eliquis for 48 hours prior to her colonoscopy. Patient still showing significant amount of discomfort does not reflect with seen with her CAT scan will continue at least aggressive current management. All cultures remain negative but her white blood cell continue to be quite elevated with significant thrombocytopenia affected by pocket infection creatinine remained 8.8 with bun 1.51 February 17, 2024: She continued to have severe pain not compatible to what seen on her CAT scan, infectious disease and general surgery have her on advance colitis management along with diverticulitis. Original plan was for patient to have a prep after being off anticoagulation to be up for colonoscopy probably on Tuesday. Will continue current management still able to do at least clear liquid colonoscopy on Tuesday and probably partial colectomy afterward depend on the result. February 20, 2024: Through the last few days she developed to have Despite not being able to see it through the CAT scan patient had severe diverticulitis and developed to have C. difficile colitis as well and was initiated on vancomycin orally. Her original plan for intervention to do colonoscopy is changed at this point with the active colitis waiting till its resolved. Patient remain on active management for diverticulitis along with C. difficile. Continue to have pain. No plan for colonoscopy at this point patient is back on her anticoagulation. Her hypokalemia continue to be a problem she is still on replacement therapy still on hydration as well. February 21, 2024: She continues to have severe diarrhea has not improved so far continue to have quite a bit anxiety not able to tolerate any food giving herself n.p.o. at this point her C. difficile severe still been treated with vancomycin CTA for patient best interest if adding Dificid can be better management at this point specially with the severity of her symptoms continue Questran as well. Still having slight bit of problem with her potassium being 3 will be more aggressive with IV but again because to be low because of her diarrhea. No plan at this point for colonoscopy with the severity of her illness will wait till her symptoms improve. February 22, 2024: Patient diarrhea had slowed down slightly so far, still on vancomycin Questran and Flagyl, patient was kept n.p.o. last 24 hours as a cleansing should be started on clear liquid diet and advancing hopefully more. According to her she had about 4-5 bowel movement a day last 24 hours and was less severe than the day before. Her potassium with a supplement hide improve And back to 4.1. Electrolyte panel with kidney function has been much better and patient is not anemic at this point. I met with the and the son today and explained to them the patient's condition that being debilitated might benefit from doing some rehab when she is ready to leave the hospital hopefully over the next day or 2. The plan at this point to hold off on any intervention until her C. difficile clears until her symptoms are completely improved and settled for at least 2 weeks straight before going for any further intervention. Also her UTI need to be managed without antibiotic unless becomes really symptomatic might have to consult with ID for better choice of antibiotic for UTI if needed. February 23, 2024: Patient is doing better Still having slight diarrhea but has improved compared to before infectious disease today decided to switch her vancomycin and Flagyl to Dificid and observe clinical response hopefully in the next 24 hours. Also from general surgery standpoint no workup needed at this point agreed to titrate diet and further workup including colonoscopy can be arranged as an outpatient when patient is feeling well. Her lab values still not showing any sign of anemia or leukocytosis and kidney function is much better so far magnesium level has been running slightly below magnesium supplement to be continue. Patient initiated some physical therapy and hopefully will be transferred to SNF as soon as she is feeling slightly better. February 24, 2024: She is doing much better today, titrate diet, titrate physical therapy and activity, was switched to Dificid from Flagyl and vancomycin and doing much better with it so far. Patient able to keep her hydration her abdominal discomfort and pain is much better. She is excepted to [facility] rehab today which patient be transferred. REVIEW OF SYSTEMS: CONSTITUTIONAL: Well-developed no acute respiratory distress. EYES: No icterus sclerae, no conjunctivitis. EARS, NOSE, MOUTH, THROAT, and FACE: No sore throat, lymphadenopathy, carotid bruits or deformity. RESPIRATORY: No SOB cough or wheezes. CARDIOVASCULAR: No CP, Palpitation, PND, Orthopnea, or angina. GASTROINTESTINAL: Slight abdominal discomfort or mild pain and nausea. GENITOURINARY: Recurrent UTI with no recent stone. INTEGUMENT/BREAST: Negative for any muscular injury with mild osteoarthritis.. HEMATOLOGIC/LYMPHATIC: Negative for bleed or purpura. MUSCULOSKELTAL: Negative for Myalgia or arthralgia. NEURLOGICAL: No LOC, Sz or syncope, blurred vision dizziness or abnormality.. BEHAVIORAL/PSYCH: Negative. ENDOCRINE: Negative. PHYSICAL EXAMINATION: General Appearance: Alert, cooperative, no distress, appears stated age. Neck HEENT: Supple, no lymphadenopathy, no thyroid enlargement, no carotid bruits. Lungs: Clear to auscultation without crackles or wheezes no rhonchi, no deformity. Chest Wall: Chest wall normal expansion with deep inspiration no tenderness and no deformity was found on exam, no costochondral pain or discomfort. Heart: Regular rate and rhythm, S1, S2 normal, no murmur, rub or gallop. Back: Symmetric, no curvature, ROM normal, no CVA tenderness. Abdomen: Soft positive bowel sound no organomegaly slight discomfort in the lower abdominal region area both right and left and mid lower abdominal region not able to feel any mass at this point. Extremities: Extremities normal, atraumatic, no cyanosis or edema. Pulses: 2+ and symmetric. Skin: Skin color, texture, tugor normal, no rashes or lesions. Neurologic: Alert oriented x3 cranial nerves II through XII intact, no motor deficit, no abnormal balance or gait. ASSESSMENT AND PLAN: _Severe abdominal pain: Symptoms are slightly better continue to be treated for active C. difficile colitis will be on vancomycin on Dificid continue probiotic titrate her diet more. _C. difficile colitis: Continue Questran and fiber diet patient did not do very well on vancomycin and Flagyl antibiotic will be switched to Dificid by infect ious disease today. _Recurrent chronic UTI with multiple episode required antibiotics was on Unasyn and Zosyn has been off medication completely patient is not symptomatic at this point. _Chronic diverticulitis with recurrent attacks along with? Of colitis: The picture is more colitis at this point with C. difficile to continue current management plan is done patient will require probably in several weeks to have a colonoscopy when all subtle and stable. After being stable from her C. difficile the patient will benefit from going for colonoscopy to decide if she needs any intervention. _Debility: Patient will continue to do physical therapy and will benefit from going to SNF. _Hypertension: Remain on lisinopril 10 mg a day we will continue medication _Obstructive sleep apnea: Continue CPAP on regular basis. _History of pulmonary embolism: Continue Eliquis 5 mg twice a day. _Chronic anemia: Stable on iron supplement with ferrous sulfate 325 mg a day still on vitamin B12 supplement. _Chronic depression: Continue Wellbutrin SR 12 mg twice a day _Neuropathy and chronic pain syndrome: Was on Lyrica still using hydrocodone on as-needed basis. _Recent history of UTI: Off antibiotic at this point. _Gout: Continue allopurinol 100 mg daily. Prognosis: Fair Hospital course: The patient was admitted to the hospital on February 14, 2024 with severe abdominal pain and low-grade temperature with elevated white blood cell and CAT scan showing diverticular heart disease without any abscess or perforation. She was diagnosed with diverticulitis initially and worsening abdominal pain. She was seen general surgery original plan was to continue Unasyn to clear her diverticulitis along with the Flagyl and when symptoms are better to have her go for colonoscopy to check on the starting tissue from her diverticula are seen from last year and see if patient will require to have any surgery. We then 72 hours patient developed to have much worsening diarrhea with worsening abdominal pain her diarrhea become a lot worse C. difficile become positive. Patient was switched to vancomycin orally along with Flagyl and seen infectious disease repeat CAT scan of the abdomen still does not show any abscess or any major abnormality except the lining of the colon area has mild inflammation consistent with local colitis as well could be from the effect of fluid C. difficile this time. With the severity of diarrhea and C. difficile no further intervention required to be done at this time patient kept having intractable nausea and vomiting with her diarrhea all along till almost 21 February when finally her symptoms stopped. Continued diarrhea for few days after starting Flagyl and vancomycin orally infectious disease on February 22 decided to change her C. difficile management to Dificid orally at this point and to complete total of 5 days. Patient might be maintaining after Dificid is done with vancomycin 250 4 times a day for total of 2 weeks and continue probiotic twice a day as well. On February 23 she is feeling much better her mobility significantly decreased and she is very weak social service had help to start application for possible SNF in [facility] patient was accepted today to go in for nursing and rehab. Patient be transferred today to [facility] on [place]. I have discussed with the today the update with his 's condition and that she is going to go to rehab initially. And is agreeable to it. Time spent on discharging patient was over 35 minutes. Patient Condition at Discharge: Good Plan - Discharge Summary New Discharge Prescriptions: New Fidaxomicin [Dificid] 200 mg PO BID #10 tab L.acidoph,Paracasei, B.lactis [Probiotic] 1 each PO AC-BID #60 capsule Potassium Chloride [Klor-Con 10 ER] 10 meq PO DAILY #30 Cholestyramine (with Sugar) [Questran Packet] 4 gm PO BID@1000,2100 #60 packet Magnesium Oxide [Mag-Ox] 400 mg PO DAILY #30 tablet Continue Apixaban [Eliquis] 5 mg PO BID allopurinoL [Zyloprim] 100 mg PO DAILY Furosemide [Lasix] 20 mg PO DAILY Sennosides [Senna] 17.2 mg PO BID lisinopriL [Zestril] 10 mg PO DAILY buPROPion HCL [buPROPion HCL SR] 200 mg PO BID Ferrous Sulfate [Iron (65 MG Elemental)] 325 mg PO DAILY Cyanocobalamin (Vitamin B-12) [Vitamin B-12] 1,000 mcg PO DAILY Cholecalciferol [Vitamin D3 (125 Mcg = 5000 Iu)] 125 mcg PO DAILY Ketoconazole 2% Cream [Nizoral 2%] 1 applic TOPICAL BID PRN PRN Reason: eczema Hydrocortisone Cream [Hydrocortisone 2.5% Cream] 1 applic TOPICAL BID PRN PRN Reason: eczema Betamethasone Dipropionate [Betamethasone Dipropionate 0.05% Cream] 1 applic TOPICAL BID PRN PRN Reason: eczema Venlafaxine HCl [Effexor XR] 75 mg PO DAILY Triamcinolone 0.1% Cream [Kenalog 0.1% Cream] 1 applic TOPICAL BID Pravastatin Sodium [Pravachol] 40 mg PO HS Lutein 10 mg PO DAILY Multivitamins, Thera [Multivitamin (formulary)] 1 tab PO DAILY Pregabalin [Lyrica] 75 mg PO BID 3 Days #6 cap HYDROcodone/APAP 7.5-325MG [[place] 7.5-325] 1 tab PO TID PRN #21 tab PRN Reason: Pain Changed clonazePAM [KlonoPIN] 0.5 mg PO HS #7 tab Discontinued Magnesium Citrate 250mg 250 mg PO DAILY Nitrofurantoin Macrocrystal [Macrodantin] 50 mg PO DAILY Cefuroxime [Ceftin] 250 mg PO BID Discharge Medication List Apixaban [Eliquis] 5 mg PO BID 07/29/20 [History] allopurinoL [Zyloprim] 100 mg PO DAILY 07/29/20 [History] Furosemide [Lasix] 20 mg PO DAILY 08/26/21 [History] Sennosides [Senna] 17.2 mg PO BID 09/18/21 [History] buPROPion HCL [buPROPion HCL SR] 200 mg PO BID 09/18/21 [History] Cyanocobalamin (Vitamin B-12) [Vitamin B-12] 1,000 mcg PO DAILY 11/18/22 [History] Ferrous Sulfate [Iron (65 MG Elemental)] 325 mg PO DAILY 11/18/22 [History] Cholecalciferol [Vitamin D3 (125 Mcg = 5000 Iu)] 125 mcg PO DAILY 01/08/23 [History] Betamethasone Dipropionate [Betamethasone Dipropionate 0.05% Cream] 1 applic TOPICAL BID PRN 02/14/24 [History] Hydrocortisone Cream [Hydrocortisone 2.5% Cream] 1 applic TOPICAL BID PRN 02/14/24 [History] Ketoconazole 2% Cream [Nizoral 2%] 1 applic TOPICAL BID PRN 02/14/24 [History] Lutein 10 mg PO DAILY 02/14/24 [History] Multivitamins, Thera [Multivitamin (formulary)] 1 tab PO DAILY 02/14/24 [ History] Pravastatin Sodium [Pravachol] 40 mg PO HS 02/14/24 [History] Triamcinolone 0.1% Cream [Kenalog 0.1% Cream] 1 applic TOPICAL BID 02/14/24 [History] Venlafaxine HCl [Effexor XR] 75 mg PO DAILY 02/14/24 [History] lisinopriL [Zestril] 10 mg PO DAILY 02/14/24 [History] Cholestyramine (with Sugar) [Questran Packet] 4 gm PO BID@1000,2100 #60 packet 02/24/24 [Rx] Fidaxomicin [Dificid] 200 mg PO BID #10 tab 02/24/24 [Rx] HYDROcodone/APAP 7.5-325MG [[place] 7.5-325] 1 tab PO TID PRN #21 tab 02/24/24 [Rx] L.acidoph,Paracasei, B.lactis [Probiotic] 1 each PO AC-BID #60 capsule 02/24/24 [Rx] Magnesium Oxide [Mag-Ox] 400 mg PO DAILY #30 tablet 02/24/24 [Rx] Potassium Chloride [Klor-Con 10 ER] 10 meq PO DAILY #30 02/24/24 [Rx] Pregabalin [Lyrica] 75 mg PO BID 3 Days #6 cap 02/24/24 [Rx] clonazePAM [KlonoPIN] 0.5 mg PO HS #7 tab 02/24/24 [Rx] Follow up Appointment(s)/Referral(s): Olga Andersen MD [Primary Care Provider] - 1-2 days [facility], [NON-STAFF] - 1 Week Amber Drummond MD [STAFF PHYSICIAN] - 1 Week
[2024-02-24 14:01] VITALS: BP 152/89; PULSE 86; TEMP 98.5
--- NOTE | 2024-02-24 16:21 | P.PN ---
Subjective Progress Note Date: 02/24/24 Principal diagnosis: Reason for follow-up is colitis and leukocytosis Patient is a 74-year-old female with a past medical history significant for hypertension history of PE sleep apnea factor V Leiden deficiency patient apparently has been on multiple courses of antibiotic for UTI, present to the hospital significant diarrhea CT abdominal pelvis and mention colitis versus diverticulitis, ID consulted because of worsening white count and diarrhea. On today's evaluation that is 02/24/2024, patient has been afebrile, patient is breathing comfortably and is currently on room air, patient denies having any significant cough no chest pain shortness of breath, patient denies nausea vomiting did have improvement in abdominal pain and to have resolution/improvement in her diarrhea feeling better. Patient white count is 8.58, creatinine 0.6 Objective - Vital Signs Vital signs: Vital Signs Temp 98.5 F 02/24/24 13:06 Pulse 86 02/24/24 13:06 Resp 18 02/24/24 13:06 BP 152/89 02/24/24 13:06 Pulse Ox 97 02/24/24 13:06 FiO2 Intake & Output 02/23/24 02/24/24 02/24/24 18:59 06:59 18:59 Intake Total 580 Balance 580 Weight 92.986 kg Intake: Oral 580 Other: Voiding Method Bedside Commode Bedside Commode Bedside Commode # Voids 1 3 1 # Bowel Movements 1 2 1 - Exam GENERAL DESCRIPTION: An elderly female lying in bed in no distress RESPIRATORY SYSTEM: Unlabored breathing , decreased breath sounds at bases HEART: S1 S2 regular rate and rhythm , ABDOMEN: Soft , mild tenderness EXTREMITIES: No edema feet - Labs CBC & Chem 7: 02/24/24 06:25 02/24/24 06:25 Labs: Abnormal Lab Results - Last 24 Hours (Table) 02/24/24 02/24/24 Range/Units 06:25 06:25 RBC 4.00 L (4.10-5.20) X 10*6/uL Hgb 11.9 L (12.0-15.0) g/dL Hct 36.4 L (37.2-46.3) % Potassium 3.2 L (3.5-5.5) mmol/L Carbon Dioxide 20.9 L (21.6-31.8) mmol/L Anion Gap 12.10 H (4.00-12.00) mmol/L BUN <3.5 L (9.0-27.0) mg/dL BUN/Creatinine Ratio <5.83 L (12.00-20.00) Ratio Total Protein 5.1 L (6.2-8.2) g/dL Albumin 3.2 L (3.8-4.9) g/dL Assessment and Plan (1) C. difficile colitis Status: Acute Code(s): A04.72 - ENTEROCOLITIS D/T CLOSTRIDIUM DIFFICILE, NOT SPCF RECUR SNOMED Code(s): 121111815 Plan: 1patient presented to hospital with abdominal pain and extensive diarrhea and this patient has been extensive course of oral antibiotic and outpatient for UTI CT has not been very clear as for his reporting with questionable diverticulitis versus colitis however clinically patient is likely behaving as C. difficile colitis 2-patient came back positive stool for C. difficile PCR 3-patient did have improvement with the Dificid plan is to continue with Dificid for 10 days and close outpatient follow-up multiple question concern answered Dictation was produced using Swoopation software. please excuse any grammatical, word or spelling errors. Time with Patient: Less than 30
--- NOTE | 2024-02-24 16:33 | P.PN ---
Subjective Progress Note Date: 02/24/24 CHIEF COMPLAINT: Abdominal pain HISTORY OF PRESENT ILLNESS: Patient reports she is feeling better. Her diarrhea has slowed down. Stools are more formed. She is tolerating diet. PHYSICAL EXAM: VITAL SIGNS: Reviewed GENERAL: Well-developed in no acute distress. HEENT: No sclera icterus. Extraocular movements grossly intact. Moist buccal mucosa. Head is atraumatic, normocephalic. Hears conversational speech. No nasal drainage. NECK: Supple without lymphadenopathy. CHEST: Non-labored respirations and equal bilateral excursions. CARDIOVASCULAR: Palpable 2+ radial pulses. ABDOMEN: Soft. Nondistended. MUSCULOSKELETAL: No clubbing or cyanosis. NEUROLOGIC: No focal or lateralizing signs. Cranial nerves II through XII grossly intact. PSYCH: Appropriate affect. Alert and oriented to person, place and time. SKIN: Well perfused. Good skin turgor. ASSESSMENT: 1. C. difficile colitis 2. Abdominal pain due to C. difficile colitis 3. Hypokalemia improved 4. Chronic antibiotic management for chronic UTI 5. Hypomagnesemia PLAN: -Patient can be discharged from surgical standpoint -Continue C. difficile treatment per ID service Physician Planned Giving Officer note has been reviewed by physician. Signing provider agrees with the documented findings, assessment, and plan of care. Objective - Vital Signs Vital signs: Vital Signs Temp 98.5 F 02/24/24 13:06 Pulse 86 02/24/24 13:06 Resp 18 02/24/24 13:06 BP 152/89 02/24/24 13:06 Pulse Ox 97 02/24/24 13:06 FiO2 Intake & Output 02/23/24 02/24/24 02/24/24 18:59 06:59 18:59 Intake Total 580 Balance 580 Weight 92.986 kg Intake: Oral 580 Other: Voiding Method Bedside Commode Bedside Commode Bedside Commode # Voids 1 3 1 # Bowel Movements 1 2 1 - Labs CBC & Chem 7: 02/24/24 06:25 02/24/24 06:25 Labs: Abnormal Lab Results - Last 24 Hours (Table) 02/24/24 02/24/24 Range/Units 06:25 06:25 RBC 4.00 L (4.10-5.20) X 10*6/uL Hgb 11.9 L (12.0-15.0) g/dL Hct 36.4 L (37.2-46.3) % Potassium 3.2 L (3.5-5.5) mmol/L Carbon Dioxide 20.9 L (21.6-31.8) mmol/L Anion Gap 12.10 H (4.00-12.00) mmol/L BUN <3.5 L (9.0-27.0) mg/dL BUN/Creatinine Ratio <5.83 L (12.00-20.00) Ratio Total Protein 5.1 L (6.2-8.2) g/dL Albumin 3.2 L (3.8-4.9) g/dL
--- NOTE | 2024-02-29 09:59 | CDI ---
Documentation Clarification Form Date: 02/29/2024 09:13:14 AM From: Erma Ho RN, CCDS Phone: [phone] Admit Date: 02/16/2024 04:25:00 PM Patient Name: Ashley Bal Visit Number: [id number] Discharge Date: 02/24/2024 03:24:00 PM ATTENTION: The Clinical Documentation Specialists (CDI) and [facility] Coding Staff appreciate your assistance in clarifying documentation. Please respond to the clarification below the line at the bottom and electronically sign. The CDI & [facility] Coding staff will review the response and follow-up if needed. Please note: Queries are made part of the Legal Health Record. If you have any questions, please contact the author of this message via ITS. Dr. Luis Adames Confusion and delirium is documented in the progress notes. Additional clarification is requested. History/Risk Factors: chronic anemia, MADELYN, HTN, diverticulosis, recurrent UTI's, depression and anxiety. Presented with abdominal pain, nausea and diarrhea. Admitted with Sepsis, diverticulitis, C diff colitis and UTI. Clinical Indicators: 02/16 Surgery: "Discussion with the patient's via telephone includes his report that she has increased confusion." 02/16 ID: "leukocytosis, clinically patient is likely behaving as C. difficile colitis." 02/18 IM: "CBC shows significant improvement in WBC count 8.6 from 22.5, stool C. difficile PCR positive. Patient does get confused during conversation. Concern for acute delirium, continue with frequent orientation, electrolytes replaced." 02/13-02/18 WBC: 16.7-16.6-18.37-22.51-8.65 02/14-02/20 K+: 3.0-2.4-2.8-3.1-3.6 02/13 A/P CT: colonic diverticular disease. Could indicate mild acute diverticulitis or focal colitis. 02/17 Stool: C diff positive Treatment: IV Unasyn 3gm x1 on 02/13 and 02/14; Vitamin B12 po daily 02/14-02/23; IV Flagyl 500mg Q8H 02/14-02/22; Macrobid 100mg po daily 02/14-02/20; IV Zosyn Q8H 3.375gm 02/14-02/18; IV KCL and po K+ 02/14-02/20; IV Vancomycin 250mg po BID 02/16- 02/20; IV Vancomycin 500mg po QID 02/20-02/22; 0.9 NS @130mL/hr Please clarify if there is an additional diagnosis: [ XX ] Metabolic Encephalopathy due to electrolytes derangements and infection [ ] Septic Encephalopathy [ ] Other, please specify [ ] Unable to determine MTDD
== END 2024-02-24 15:24 | DRG 871 ==
LOC: EC 15:55 → 6NMEDSUR 20:39 → 1SOBS 21:50 → 5NMEDONC 02-15 16:10 → OBSVTOIN 02-16 16:25
PROVIDERS: ADMIT Internal Medicine Geriatric Medicine; ATTEND Internal Medicine Geriatric Medicine
DX: A41.9 Sepsis, unspecified organism (principal); G93.41 Metabolic encephalopathy; K31.6 Fistula of stomach and duodenum; A04.72 Enterocolitis due to Clostridium difficile, not specified as recurrent; F05 Delirium due to known physiological condition; N39.0 Urinary tract infection, site not specified; D68.51 Activated protein C resistance; K57.32 Diverticulitis of large intestine without perforation or abscess without bleeding; D69.6 Thrombocytopenia, unspecified; D50.9 Iron deficiency anemia, unspecified; F32.A Depression, unspecified; I10 Essential (primary) hypertension; M10.9 Gout, unspecified; E78.5 Hyperlipidemia, unspecified; E83.42 Hypomagnesemia; E83.52 Hypercalcemia; E87.6 Hypokalemia; F41.1 Generalized anxiety disorder; G47.33 Obstructive sleep apnea (adult) (pediatric); G62.9 Polyneuropathy, unspecified; G89.4 Chronic pain syndrome; H91.90 Unspecified hearing loss, unspecified ear; K64.4 Residual hemorrhoidal skin tags; L30.9 Dermatitis, unspecified; K59.00 Constipation, unspecified; Z79.01 Long term (current) use of anticoagulants; Z79.2 Long term (current) use of antibiotics; Z79.899 Other long term (current) drug therapy; Z87.440 Personal history of urinary (tract) infections; Z86.711 Personal history of pulmonary embolism; Z98.84 Bariatric surgery status; Z86.16 Personal history of COVID-19; Z71.3 Dietary counseling and surveillance; Z88.3 Allergy status to other anti-infective agents; Z88.8 Allergy status to other drugs, medicaments and biological substances
CPT/HCPCS: 36415; 74018; 74176; 74177; 80048; 80053; 82150; 83690; 83735; 84100; 84132; 85025; 85027; 87040; 87045; 87046; 87324; 87493; 96365; 96375; 99285

== ENCOUNTER 2024-03-12 18:33 | Inpatient (IN) | payer MEDICARE, OTHER ==
--- NOTE | 2024-03-12 19:04 | ED ---
General Adult HPI - General Chief complaint: Nausea/Vomiting/Diarrhea Stated complaint: Poss C Diff Time Seen by Provider: 03/12/24 18:50 Source: patient, EMS, RN notes reviewed, old records reviewed Mode of arrival: EMS Limitations: no limitations - History of Present Illness Initial comments: This is a 74-year-old female who presents to the emergency department because she was [facility] upon her own request and went home and feels as though she is still weak. Patient states she also is occasionally having diarrhea it comes and goes she states. Patient denies any abdominal pain patient denies chest pain difficulty breathing shortness of breath or patient has any fever or chills. Patient denies any blood in the stool. Patient denies lightheadedness or dizziness. Patient is a very poor historian and no one else is with her currently - Related Data Home Medications Medication Instructions Recorded Confirmed Apixaban [Eliquis] 5 mg PO BID 07/29/20 03/12/24 allopurinoL [Zyloprim] 100 mg PO DAILY 07/29/20 03/12/24 Sennosides [Senna] 17.2 mg PO BID PRN 09/18/21 03/12/24 buPROPion HCL [buPROPion HCL SR] 200 mg PO BID 09/18/21 03/12/24 Cyanocobalamin (Vitamin B-12) 1,000 mcg PO DAILY 11/18/22 03/12/24 [Vitamin B-12] Ferrous Sulfate [Iron (65 MG 325 mg PO DAILY 11/18/22 03/12/24 Elemental)] Cholecalciferol [Vitamin D3 (125 125 mcg PO DAILY 01/08/23 03/12/24 Mcg = 5000 Iu)] Lutein 10 mg PO DAILY 02/14/24 03/12/24 Multivitamins, Thera [Multivitamin 1 tab PO DAILY 02/14/24 03/12/24 (formulary)] Pravastatin Sodium [Pravachol] 40 mg PO HS 02/14/24 03/12/24 Triamcinolone 0.1% Cream [Kenalog 1 applic TOPICAL BID PRN 02/14/24 03/12/24 0.1% Cream] Venlafaxine HCl [Effexor XR] 75 mg PO DAILY 02/14/24 03/12/24 lisinopriL [Zestril] 10 mg PO DAILY 02/14/24 03/12/24 Furosemide [Lasix] 40 mg PO DAILY 03/12/24 03/12/24 Lactobacillus Acidophilus 1 cap PO BID 03/12/24 03/12/24 [Acidophilus Probiotic] Magnesium Citrate 250mg Gummy 250 mg PO DAILY 03/12/24 03/12/24 Midodrine [ProAmatine] 5 mg PO TID-W/MEALS 03/12/24 03/12/24 Potassium Chloride [Klor-Con 10 ER] 20 meq PO BID 03/12/24 03/12/24 Previous Rx's Medication Instructions Recorded Pregabalin [Lyrica] 75 mg PO BID 3 Days #6 cap 02/24/24 clonazePAM [KlonoPIN] 0.5 mg PO HS #7 tab 02/24/24 Allergies Allergy/AdvReac Type Severity Reaction Status Date / Time itraconazole Allergy IV, Verified 03/12/24 19:45 burning from fingers to shoulder ondansetron [From Zofran] AdvReac severe Verified 03/12/24 19:45 burning @IV site, itching Review of Systems ROS Statement: Those systems with pertinent positive or pertinent negative responses have been documented in the HPI. ROS Other: All systems not noted in ROS Statement are negative. Past Medical History Past Medical History: Blood Disorder, Hearing Disorder / Deafness, Hypertension, Musculoskeletal Disorder, Pulmonary Embolus (PE), Skin Disorder, Sleep Apnea/CPAP/BIPAP Additional Past Medical History / Comment(s): DDD. PE September 2019. hx gout. leiden factor V, rich foot edema,, new rich leg edema( [facility] to [facility]), constipation, diverticulosis, eczema, severe urinary incontinece- uses brief, pt states dx with COVID 09/18/21 History of Any Multi-Drug Resistant Organisms: C-DIFF Past Surgical History: Bariatric Surgery, Cholecystectomy, Hysterectomy, Tonsillectomy Additional Past Surgical History / Comment(s): cataract sx. Gastric stapling in 1979. Cataract surgery 2015. Colonoscopy June 2020. DEDRA/BSO with umbilical hernia repair in September 2020, cataract surgery Past Anesthesia/Blood Transfusion Reactions: No Reported Reaction Additional Past Anesthesia/Blood Transfusion Reaction / Comment(s): no blood tx hx Past Psychological History: Anxiety, Depression Smoking Status: Never smoker Past Alcohol Use History: None Reported Past Drug Use History: None Reported - Past Family History Mother Family Medical History: Myocardial Infarction (CT) Father Family Medical History: Myocardial Infarction (CT) Brother(s) Family Medical History: Deep Vein Thrombosis (DVT), Myocardial Infarction (CT), Pulmonary Embolus General Exam - General Exam Comments Initial Comments: GENERAL: Patient is well-developed and well-nourished. Patient is nontoxic and well- hydrated and is in no acute distress. ENT: Neck is soft and supple. No significant lymphadenopathy is noted. Oropharynx is clear. Moist mucous membranes. Neck has full range of motion without eliciting any pain. EYES: The sclera were anicteric and conjunctiva were pink and moist. Extraocular movements were intact and pupils were equal round and reactive to light. Eyelids were unremarkable. PULMONARY: Unlabored respirations. Good breath sounds bilaterally. No audible rales rhonchi or wheezing was noted. CARDIOVASCULAR: There is a regular rate and rhythm without any murmurs gallops or rubs. ABDOMEN: Soft and nontender with normal bowel sounds. SKIN: Skin is clear with no lesions or rashes and otherwise unremarkable. NEUROLOGIC: Patient is alert and oriented x3. Cranial nerves II through XII are grossly intact. Motor and sensory are also intact. Normal speech, volume and content. Symmetrical smile. MUSCULOSKELETAL: Normal extremities with adequate strength and full range of motion. LYMPHATICS: No significant lymphadenopathy is noted PSYCHIATRIC: Normal psychiatric evaluation. Limitations: no limitations Course Vital Signs 03/12/24 03/12/24 03/12/24 18:45 19:49 20:51 Temperature 99.3 F 100.8 F H 99.4 F Pulse Rate 93 90 94 Respiratory 18 18 18 Rate Blood Pressure 156/93 159/75 164/81 O2 Sat by Pulse 95 96 96 Oximetry Medical Decision Making - Medical Decision Making Was pt. sent in by a medical professional or institution (, PA, [facility], urgent care, hospital, or [facility]...) When possible be specific @ -No Did you speak to anyone other than the patient for history (EMS, parent, family, police, friend...)? What history was obtained from this source @ - gave quite a bit of the history. Did you review nursing and triage notes (agree or disagree)? Why? @ -I reviewed and agree with nursing and triage notes Were old charts reviewed (outside hosp., previous admission, EMS record, old EKG, old radiological studies, urgent care reports/EKG's, [facility] records)? Report findings @ -I reviewed prior lab work on this patient and today's white count was considerably higher. Differential Diagnosis (chest pain, altered mental status, abdominal pain women, abdominal pain men, vaginal bleeding, weakness, fever, dyspnea, syncope, headache, dizziness, GI bleed, back pain, seizure, CVA, palpatations, mental health, musculoskeletal)? @ -Differential Fever: Pneumonia, viral URI, endocarditis, myocarditis, pericarditis, otitis, sinusitis, peritonsillar Abscess, retropharyngeal Abscess, epiglottitis, peritonitis, appendicitis, Rosangela cystitis, diverticulitis, hepatitis, colitis, UTI, PID, TOA, pyelonephritis, prostatitis, epididymitis, meningitis, encephalitis, pulmonary embolism, CVA, thyroid storm, pancreatitis, adrenal crisis, cavernous sinus thrombosis, this is not meant to be an all-inclusive list. EKG interpreted by me (3pts min.). @ -As above X-rays interpreted by me (1pt min.). @ -None done CT interpreted by me (1pt min.). @ -None done U/S interpreted by me (1pt. min.). @ -None done What testing was considered but not performed or refused? (CT, X-rays, U/S, labs)? Why? @ -None What meds were considered but not given or refused? Why? @ -None Did you discuss the management of the patient with other professionals (professionals i.e. , PA, [employer], lab, RT, psych nurse, social services assistant, commercial litigation associate, teacher, traffic officer, case work aide)? Give summary @ -I spoke with Dr. Adames he agreed admit the patient Was smoking cessation discussed for >3mins.? @ -No Was critical care preformed (if so, how long)? @ -No Were there social determinants of health that impacted care today? How? (Homelessness, low income, unemployed, alcoholism, drug addiction, transportation, low edu. Level, literacy, decrease access to med. care, residential, rehab)? @ -No Was there de-escalation of care discussed even if they declined (Discuss DNR or withdrawal of care, Hospice)? DNR status @ -No What co-morbidities impacted this encounter? (DM, HTN, Smoking, COPD, CAD, Cancer, CVA, ARF, Chemo, Hep., AIDS, mental health diagnosis, sleep apnea, morbid obesity)? @ -None Was patient admitted / discharged? Hospital course, mention meds given and route, prescriptions, significant lab abnormalities, going to OR and other pertinent info. @ -Patient's came after my initial interview and he stated that the patient had profuse amount of diarrhea over the last 3 days since been getting considerably weaker and is not eating. Since patient had C. difficile in the past I started the patient on antibiotics for C. difficile at this time I spoke with Dr. Adames he agreed to admit the patient admit the patient recommending orders Undiagnosed new problem with uncertain prognosis? @ -No Drug Therapy requiring intensive monitoring for toxicity (Heparin, Nitro, Insulin, Cardizem)? @ -No Were any procedures done? @ -No Diagnosis/symptom? @ -C. difficile Acute, or Chronic, or Acute on Chronic? @ -Acute Uncomplicated (without systemic symptoms) or Complicated (systemic symptoms)? @ -Complicated Side effects of treatment? @ -No Exacerbation, Progression, or Severe Exacerbation? @ -No Poses a threat to life or bodily function? How? (Chest pain, USA, CT, pneumonia, PE, COPD, DKA, ARF, appy, cholecystitis, CVA, Diverticulitis, Homicidal, Suicidal, threat to staff... and all critical care pts) @ -Yes this can lead to sepsis and endorgan dysfunction - Lab Data Result diagrams: 03/12/24 19:36 03/12/24 19:36 Lab Results 03/12/24 03/12/24 03/12/24 Range/Units 19:36 19:36 19:36 WBC 16.1 H (3.8-10.6) k/uL RBC 3.50 L (3.80-5.40) m/uL Hgb 10.7 L (11.4-16.0) gm/dL Hct 32.3 L (34.0-46.0) % MCV 92.3 (80.0-100.0) fL MCH 30.6 (25.0-35.0) pg MCHC 33.2 (31.0-37.0) g/dL RDW 14.0 (11.5-15.5) % Plt Count 199 (150-450) k/uL MPV 8.7 Neutrophils % 76 % Lymphocytes % 5 % Monocytes % 15 % Eosinophils % 0 % Basophils % 0 % Neutrophils # 12.3 H (1.3-7.7) k/uL Lymphocytes # 0.8 L (1.0-4.8) k/uL Monocytes # 2.4 H (0-1.0) k/uL Eosinophils # 0.0 (0-0.7) k/uL Basophils # 0.0 (0-0.2) k/uL Sodium 134 L (137-145) mmol/L Potassium 3.1 L (3.5-5.1) mmol/L Chloride 99 (98-107) mmol/L Carbon Dioxide 26 (22-30) mmol/L Anion Gap 9 mmol/L BUN 8 (7-17) mg/dL Creatinine 0.57 (0.52-1.04) mg/dL Est GFR (CKD-EPI)AfAm >90 (>60 ml/min/1.73 sqM) Est GFR (CKD-EPI)NonAf >90 (>60 ml/min/1.73 sqM) Glucose 102 H (74-99) mg/dL Plasma Lactic Acid Reji 1.1 (0.7-2.0) mmol/L Calcium 10.1 (8.4-10.2) mg/dL Magnesium 1.8 (1.6-2.3) mg/dL Total Bilirubin 0.8 (0.2-1.3) mg/dL AST 18 (14-36) U/L ALT 14 (4-34) U/L Alkaline Phosphatase 107 (38-126) U/L Total Protein 6.4 (6.3-8.2) g/dL Albumin 3.2 L (3.5-5.0) g/dL Amylase 46 (30-110) U/L Lipase 38 (23-300) U/L Disposition Clinical Impression: Clostridioides difficile infection Disposition: ADMITTED IP TO THIS HOSP Referrals: Olga Andersen MD [Primary Care Provider] - 1-2 days Time of Disposition: 21:00
[2024-03-12] MEDS: SODIUM CHLORIDE 0.9% 1,000 ML IV STA (19:45)
[2024-03-12 19:48] LABS: Basophils % (A) 0 %; Eosinophils % (A) 0 %; HCT 32.3 % (34.0-46.0); HGB 10.7 gm/dL (11.4-16.0); Lymphocytes # (A) 0.8 k/uL (1.0-4.8); Lymphocytes % (A) 5 %; MCH 30.6 pg (25.0-35.0); MCHC 33.2 g/dL (31.0-37.0); MCV 92.3 fL (80.0-100.0); Mean Platelet Volume 8.7; Monocytes # (A) 2.4 k/uL (0-1.0); Monocytes % (A) 15 %; Neutrophils # (A) 12.3 k/uL (1.3-7.7); Neutrophils % (A) 76 %; Platelet Count 199 k/uL (150-450); WBC 16.1 k/uL (3.8-10.6)
[2024-03-12 20:08] LABS: ALT 14 U/L (4-34); AST 18 U/L (14-36); African American GFR (CKD) >90 (>60 ml/min/1.73 sqM); Albumin 3.2 g/dL (3.5-5.0); Alkaline Phosphatase 107 U/L (38-126); Amylase 46 U/L (30-110); Anion Gap 9 mmol/L; Blood Urea Nitrogen 8 mg/dL (7-17); Calcium 10.1 mg/dL (8.4-10.2); Carbon Dioxide 26 mmol/L (22-30); Chloride 99 mmol/L (98-107); Glucose 102 mg/dL (74-99); Lipase 38 U/L (23-300); Magnesium 1.8 mg/dL (1.6-2.3); Non-African American GFR(CKD) >90 (>60 ml/min/1.73 sqM); Potassium 3.1 mmol/L (3.5-5.1); Sodium 134 mmol/L (137-145); Total Bilirubin 0.8 mg/dL (0.2-1.3); Total Protein 6.4 g/dL (6.3-8.2)
[2024-03-12] MEDS: ACETAMINOPHEN TAB 500 MG TAB PO STA (20:52)
[2024-03-12] MEDS: FIDAXOMICIN 200 MG TABLET PO ONE (21:41)
[2024-03-12] MEDS: SODIUM CHLORIDE 0.9% 1,000 ML IV ONE (21:42)
[2024-03-12 22:15] LABS: Appearance,Urine Cloudy (Clear); Bacteria,Urine Many /hpf; Bilirubin,Urine Negative (Negative); Blood,Urine Negative (Negative); Color,Urine Light Yellow; Glucose,Urine (UA) Negative (Negative); Leukocyte Esterase,Urine Moderate (Negative); Mucus,Urine Rare /hpf; Nitrite,Urine Positive (Negative); PH, Urine 6.5 (5.0-8.0); Protein,Urine Trace (Negative); RBC,Urine 2 /hpf (0-5); Specific Gravity,Urine 1.011 (1.001-1.035); Squamous Epithelial Cell,Urine <1 /hpf (0-4); Urobilinogen,Urine <2.0 mg/dL (<2.0); WBC,Urine 4 /hpf (0-5)
[2024-03-12 22:16] LABS: Ketones,Urine 2+ (Negative)
[2024-03-12] MEDS: clonazePAM 0.5 MG TAB PO SCH (23:01)
[2024-03-12] MEDS: PREGABALIN 75 MG CAP PO SCH (23:02)
[2024-03-12 23:12] LABS: Glucose,Whole Blood 107 mg/dL (70-110)
--- NOTE | 2024-03-13 00:25 | CT ---
EXAMINATION TYPE: CT brain cspine wo con CT DLP: 1310.9 mGycm, Automated exposure control for dose reduction was used. DATE OF EXAM: 03/12/2024 9:37 PM COMPARISON: None. CLINICAL INDICATION:Female, 74 years old with history of fall; Patient had a fall x 1 week ago in [place], states yesterday. weakness. TECHNIQUE: Brain: Multiple axial CT images of the brain were obtained without IV contrast. Cspine: Axial CT images from the skull base to the inferior aspect of T2 we obtained without intraven ous contrast. Coronal and sagittal reformatted images were also reviewed. FINDINGS: Brain: Extra-axial spaces: No abnormal extra-axial fluid collections. Ventricular system: Appear dilated in proportion to the degree of cerebral atrophy. Cerebral parenchyma: No increased attenuation to suggest acute intraparenchymal hemorrhage. The gra y-white matter interface appears maintained. Moderate generalized brain atrophy. Scattered hypoatte nuating areas are seen within the cerebral white matter, nonspecific but most often seen with chronic microvascular ischemic changes; mild/moderate in degree. Cerebellum: No acute abnormality. Mass effect: No evidence of mass effect or midline shift. Intracranial vasculature: Atherosclerotic calcifications of the larger arteries near the skull base. Soft tissues: Normal. Visualized orbits: Orbital contents appear grossly intact. Calvarium/osseous structures: No evidence of calvarial fracture. Paranasal sinuses and mastoid air cells: Mild mucosal thickening right sphenoid sinus, otherwise julio c r MRI is more sensitive for detecting acute processes such as infarct, and may be considered if clinica lly warranted. Cervical spine: Fracture: None seen. Osseous structures, spinal canal/neural foramina: Craniocervical junction is intact. Generally mild t o moderate degenerative disc disease and facet arthrosis in the cervical spine without critical canal or foraminal narrowing. No traumatic malalignment is seen . Vertebral alignment: No traumatic malalignment. Preserved normal cervical lordosis. Neck soft tissues: No acute finding.. Visualized thyroid appears somewhat heterogeneous and nodular.A 2 cm soft tissue density lateral to the left trachea, could be related to thyroid lesion or immediat giovanni adjacent, such as adenopathy. Other: Lung apices show some chronic patchy scarring. IMPRESSION: CT head: 1. No acute intracranial CT abnormality. 2. Atrophy and chronic microvascular ischemic changes. CT cervical spine: 1. No evidence of acute cervical spine fracture or traumatic malalignment. 2. [id number] cervical spondylosis. 3. Heterogeneous thyroid, with 2 cm thyroid nodule on the left versus adenopathy. Further evaluation may begin with outpatient ultrasound.
[2024-03-13] MEDS: ACETAMINOPHEN TAB 500 MG TAB PO PRN (06:25)
[2024-03-13] MEDS: APIXABAN 5 MG TAB PO SCH (09:13)
[2024-03-13] MEDS: MIDODRINE 5 MG TAB PO SCH (09:13)
[2024-03-13] MEDS: CHOLECALCIFEROL 125 MCG (5000 IU) TABLET PO SCH (09:14)
[2024-03-13] MEDS: CYANOCOBALAMIN 500 MCG TAB PO SCH (09:14)
[2024-03-13] MEDS: FERROUS SULFATE 325 MG TAB PO SCH (09:15)
[2024-03-13] MEDS: LACTOBACILLUS ACIDOPHILUS/PECT 1 EACH CAPSULE PO SCH (09:15)
[2024-03-13] MEDS: FUROSEMIDE 40 MG TAB PO SCH (09:15)
[2024-03-13] MEDS: lisinopriL 10 MG TAB PO SCH (09:16)
[2024-03-13] MEDS: MULTIVITAMINS, THERA 1 EACH TAB PO SCH (09:16)
[2024-03-13] MEDS: POTASSIUM CHLORIDE ER 20 MEQ TAB.ER PO SCH ×2 (09:16→15:36)
[2024-03-13] MEDS: VENLAFAXINE HCL ER 75 MG CAP PO SCH (09:16)
[2024-03-13] MEDS: allopurinoL 100 MG TAB PO SCH (09:17)
[2024-03-13] MEDS: FIDAXOMICIN 200 MG TABLET PO SCH (09:24)
[2024-03-13] MEDS: buPROPion SR 100 MG TABLET.ER PO SCH (09:24)
[2024-03-13] MEDS: NON FORMULARY DRUG (Lutein [Lutein] 10 MG Tablet) PO SCH (09:28)
--- NOTE | 2024-03-13 10:04 | P.HPIM ---
History of Present Illness H&P Date: 03/12/24 HISTORY OF PRESENT ILLNESS: 74-year-old 89 office patient with active medical history of chronic anemia, obstructive sleep apnea, hypertension, hyperlipidemia, history of pulmonary embolism still on anticoagulation, generalized anxiety and depression, recurrent UTI, recurrent abdominal pain with recurrent diverticulitis who presented to the emergency department 4 weeks ago with severe abdominal pain with intractable nausea and vomiting with slight worsening diarrhea found to have abdominal discomfort with abdominal region area and found to have UTI with questionable diverticulitis. Patient developed to have worsening diarrhea and few days later found to have an aggressive type of C. difficile colitis did not respond to vancomycin and Flagyl after being on it for almost a week. Patient was switched to Dificid and continue on it to complete total of 10 days and was sent at that time to [facility] on the [facility] where was treated for entire course of her colitis and C. difficile. Apparently has become significantly better and they are going home. Last 3 days developed to have worsening symptoms with intractable nausea along with diarrhea with worsening dehydration become extremely weak not been able to ambulate and walk ended up coming to the emergency department at [facility] where was seen and evaluated Found to have elevation of 5.8 with slightly tachycardia mildly elevated blood pressure. Laboratory value shows hemoglobin of 10.7 with white blood cell 16.1 hematocrit 32.3 platelet count of 199 electrolytes showed significant hypokalemia at 3.1. Which was started on replacement therapy. Patient apparently had completed her C. difficile treatment with Dificid but this is a relapse to treatment. Patient is quite bit high dehydrated and symptomatic she will be admitted to the hospital see infectious disease see this consult be done based on the resolved probably will go back on Dificid again not a clear if this is an IV extended or finish 10 more days of Dificid followed by vancomycin orally for 2 more weeks. REVIEW OF SYSTEMS: CONSTITUTIONAL: Well-developed no acute respiratory distress. EYES: No icterus sclerae, no conjunctivitis. EARS, NOSE, MOUTH, THROAT, and FACE: No sore throat, lymphadenopathy, carotid bruits or deformity. RESPIRATORY: No SOB cough or wheezes. CARDIOVASCULAR: No CP, Palpitation, PND, Orthopnea, or angina. GASTROINTESTINAL: Slight abdominal discomfort or mild pain and nausea. GENITOURINARY: Recurrent UTI with no recent stone. INTEGUMENT/BREAST: Negative for any muscular injury with mild osteoarthritis.. HEMATOLOGIC/LYMPHATIC: Negative for bleed or purpura. MUSCULOSKELTAL: Negative for Myalgia or arthralgia. NEURLOGICAL: No LOC, Sz or syncope, blurred vision dizziness or abnormality.. BEHAVIORAL/PSYCH: Negative. ENDOCRINE: Negative. PHYSICAL EXAMINATION: General Appearance: Alert, cooperative, no distress, appears stated age. Neck HEENT: Supple, no lymphadenopathy, no thyroid enlargement, no carotid bruits. Lungs: Clear to auscultation without crackles or wheezes no rhonchi, no deformity. Chest Wall: Chest wall normal expansion with deep inspiration no tenderness and no deformity was found on exam, no costochondral pain or discomfort. Heart: Regular rate and rhythm, S1, S2 normal, no murmur, rub or gallop. Back: Symmetric, no curvature, ROM normal, no CVA tenderness. Abdomen: Soft positive bowel sound no organomegaly slight discomfort in the lower abdominal region area both right and left and mid lower abdominal region not able to feel any mass at this point. Extremities: Extremities normal, atraumatic, no cyanosis or edema. Pulses: 2+ and symmetric. Skin: Skin color, texture, tugor normal, no rashes or lesions. Neurologic: Alert oriented x3 cranial nerves II through XII intact, no motor d eficit, no abnormal balance or gait. ASSESSMENT AND PLAN: _Acute C. difficile sepsis: Severe symptoms consistent with fever, chills, leukocytosis and hypotension with tachycardia. Continue aggressive treatment for C. difficile. _Recurrent severe C. difficile colitis: She is back on Dificid for total of 10 days to be seen infectious disease and probably will stay on prophylaxis vancomycin afterward for total of 1 month whether patient can benefit from doing stool transplant or not this to be determined. _Recurrent abdominal pain: Secondary to C. difficile colitis, if agree probably doing another CAT scan would not be a bad idea this time. Will add antispastic medication along with Tylenol 3 as needed. _Recent recurrent acute diverticulitis with? Of colitis: Was treated and eventually will be going for colonoscopy when ready. _Mild anemia: Hemoglobin down to 10.7, continue multivitamin continue iron supplement. _Electrolyte imbalance with severe hypokalemia most likely from diarrhea magnesium is most likely is down as well continue replacement therapy for now. _History of pulmonary embolism: Continue Eliquis 5 mg twice a day. _Chronic anemia: Stable on iron supplement with ferrous sulfate 325 mg a day still on vitamin B12 supplement. _Gout: Continue allopurinol 100 mg daily. _Hypertension: Remain on lisinopril 10 mg a day we will continue medication _Obstructive sleep apnea: Continue CPAP on regular basis. _Neuropathy and chronic pain syndrome: Was on Lyrica still using hydrocodone on as-needed basis. _Chronic depression: Continue Wellbutrin SR 12 mg twice a day _GI prophylaxis: Will use Protonix 40 mg a day. _DVT prophylaxis: Early mobilization and knee-high ALISHA hose. _CODE STATUS: Full code. Admit patient to the inpatient service for more than 2 night stay. Past Medical History Past Medical History: Blood Disorder, Hearing Disorder / Deafness, Hypertension, Musculoskeletal Disorder, Pulmonary Embolus (PE), Skin Disorder, Sleep Apnea/CPAP/BIPAP Additional Past Medical History / Comment(s): DDD. PE September 2019. hx gout. leiden factor V, rich foot edema,, new rich leg edema( pt to call [facility]), constipation, diverticulosis, eczema, severe urinary incontinece- uses brief, pt states dx with COVID 09/18/21 History of Any Multi-Drug Resistant Organisms: C-DIFF Date of last positivie culture/infection: 02/14/24 Past Surgical History: Bariatric Surgery, Cholecystectomy, Hysterectomy, Tonsillectomy Additional Past Surgical History / Comment(s): cataract sx. Gastric stapling in 1979. Cataract surgery 2015. Colonoscopy June 2020. DEDRA/BSO with umbilical hernia repair in September 2020, cataract surgery Past Anesthesia/Blood Transfusion Reactions: No Reported Reaction Additional Past Anesthesia/Blood Transfusion Reaction / Comment(s): no blood tx hx Past Psychological History: Anxiety, Depression Smoking Status: Never smoker Past Alcohol Use History: None Reported Past Drug Use History: None Reported - Past Family History Mother Family Medical History: Myocardial Infarction (IN) Father Family Medical History: Myocardial Infarction ([place]) Brother(s) Family Medical History: Deep Vein Thrombosis (DVT), Myocardial Infarction (IN), Pulmonary Embolus Medications and Allergies Home Medications Medication Instructions Recorded Confirmed Type Apixaban [Eliquis] 5 mg PO BID 07/29/20 03/12/24 History allopurinoL [Zyloprim] 100 mg PO DAILY 07/29/20 03/12/24 History Sennosides [Senna] 17.2 mg PO BID PRN 09/18/21 03/12/24 History buPROPion HCL [buPROPion HCL SR] 200 mg PO BID 09/18/21 03/12/24 History Cyanocobalamin (Vitamin B-12) 1,000 mcg PO DAILY 11/18/22 03/12/24 History [Vitamin B-12] Ferrous Sulfate [Iron (65 MG 325 mg PO DAILY 11/18/22 03/12/24 History Elemental)] Cholecalciferol [Vitamin D3 (125 125 mcg PO DAILY 01/08/23 03/12/24 History Mcg = 5000 Iu)] Lutein 10 mg PO DAILY 02/14/24 03/12/24 History Multivitamins, Thera [Multivitamin 1 tab PO DAILY 02/14/24 03/12/24 History (formulary)] Pravastatin Sodium [Pravachol] 40 mg PO HS 02/14/24 03/12/24 History Triamcinolone 0.1% Cream [Kenalog 1 applic TOPICAL BID PRN 02/14/24 03/12/24 History 0.1% Cream] Venlafaxine HCl [Effexor XR] 75 mg PO DAILY 02/14/24 03/12/24 History lisinopriL [Zestril] 10 mg PO DAILY 02/14/24 03/12/24 History Pregabalin [Lyrica] 75 mg PO BID 3 Days #6 cap 02/24/24 03/12/24 Rx clonazePAM [KlonoPIN] 0.5 mg PO HS #7 tab 02/24/24 03/12/24 Rx Furosemide [Lasix] 40 mg PO DAILY 03/12/24 03/12/24 History Lactobacillus Acidophilus 1 cap PO BID 03/12/24 03/12/24 History [Acidophilus Probiotic] Magnesium Citrate 250mg Gummy 250 mg PO DAILY 03/12/24 03/12/24 History Midodrine [ProAmatine] 5 mg PO TID-W/MEALS 03/12/24 03/12/24 History Potassium Chloride [Klor-Con 10 ER] 20 meq PO BID 03/12/24 03/12/24 History Allergies Allergy/AdvReac Type Severity Reaction Status Date / Time itraconazole Allergy IV, Verified 03/12/24 19:45 burning from fingers to shoulder ondansetron [From Zofran] AdvReac severe Verified 03/12/24 19:45 burning @IV site, itching Physical Exam Vitals: Vital Signs Temp Pulse Resp BP Pulse Ox 03/12/24 21:42 99.1 F 81 18 142/78 95 03/12/24 20:51 99.4 F 94 18 164/81 96 03/12/24 19:49 100.8 F H 90 18 159/75 96 03/12/24 18:45 99.3 F 93 18 156/93 95 Intake and Output 03/12/24 03/12/24 03/12/24 06:59 14:59 22:59 Other: Weight 92.986 kg Results CBC & Chem 7: 03/13/24 10:45 03/13/24 19:21 Labs: Abnormal Lab Results - Last 24 Hours (Table) 03/12/24 03/12/24 Range/Units 19:36 19:36 WBC 16.1 H (3.8-10.6) k/uL RBC 3.50 L (3.80-5.40) m/uL Hgb 10.7 L (11.4-16.0) gm/dL Hct 32.3 L (34.0-46.0) % Neutrophils # 12.3 H (1.3-7.7) k/uL Lymphocytes # 0.8 L (1.0-4.8) k/uL Monocytes # 2.4 H (0-1.0) k/uL Sodium 134 L (137-145) mmol/L Potassium 3.1 L (3.5-5.1) mmol/L Glucose 102 H (74-99) mg/dL Albumin 3.2 L (3.5-5.0) g/dL
--- NOTE | 2024-03-13 10:07 | P.PN ---
Subjective Progress Note Date: 03/13/24 HISTORY OF PRESENT ILLNESS: 74-year-old 89 office patient with active medical history of chronic anemia, obstructive sleep apnea, hypertension, hyperlipidemia, history of pulmonary embolism still on anticoagulation, generalized anxiety and depression, recurrent UTI, recurrent abdominal pain with recurrent diverticulitis who presented to the emergency department 4 weeks ago with severe abdominal pain with intractable nausea and vomiting with slight worsening diarrhea found to have abdominal discomfort with abdominal region area and found to have UTI with questionable diverticulitis. Patient developed to have worsening diarrhea and few days later found to have an aggressive type of C. difficile colitis did not respond to vancomycin and Flagyl after being on it for almost a week. Patient was switched to Dificid and continue on it to complete total of 10 days and was sent at that time to [facility] where was treated for entire course of her colitis and C. difficile. Apparently has become significantly better and they are going home. Last 3 days developed to have worsening symptoms with intractable nausea along with diarrhea with worsening dehydration become extremely weak not been able to ambulate and walk ended up coming to the emergency department at [facility] where was seen and evaluated Found to have elevation of 5.8 with slightly tachycardia mildly elevated blood pressure. Laboratory value shows hemoglobin of 10.7 with white blood cell 16.1 hematocrit 32.3 platelet count of 199 electrolytes showed significant hypokalemia at 3.1. Which was started on replacement therapy. Patient apparently had completed her C. difficile treatment with Dificid but this is a relapse to treatment. Patient is quite bit high dehydrated and symptomatic she will be admitted to the hospital see infectious disease see this consult be done based on the resolved probably will go back on Dificid again not a clear if this is an IV extended or finish 10 more days of Dificid followed by vancomycin orally for 2 more weeks. 03/13/2024: She is lying in bed still having significant abdominal pain and discomfort had few episodes of diarrhea through the night, her C. difficile back positive this morning. Will continue current management for now by initiating Dificid for the next 10 days past the time probably should be on prophylaxis with vancomycin suspension for total of 1 month. Waiting for infectious disease to make the final conclusion. With recurrent abdominal pain discomfort along with the severity of her symptoms may be another CAT scan of the abdomen pelvis would not be such a bad idea to do. Also patient is still having slight fever and this is can be C. difficile colitis with mild inflammation or infection can be more aggressive than expected might require further attention cannot wait till the patient is feeling better to do another colonoscopy to exclude any other possibility for what she might have in her abdominal area that was a plan originally after the last episode but she relapsed with the C. difficile now require treatment and probably have to wait least 2 months before able to go for colonoscopy. REVIEW OF SYSTEMS: CONSTITUTIONAL: Well-developed no acute respiratory distress. EYES: No icterus sclerae, no conjunctivitis. EARS, NOSE, MOUTH, THROAT, and FACE: No sore throat, lymphadenopathy, carotid bruits or deformity. RESPIRATORY: No SOB cough or wheezes. CARDIOVASCULAR: No CP, Palpitation, PND, Orthopnea, or angina. GASTROINTESTINAL: Slight abdominal discomfort or mild pain and nausea. GENITOURINARY: Recurrent UTI with no recent stone. INTEGUMENT/BREAST: Negative for any muscular injury with mild osteoarthritis.. HEMATOLOGIC/LYMPHATIC: Negative for bleed or purpura. MUSCULOSKELTAL: Negative for Myalgia or arthralgia. NEURLOGICAL: No LOC, Sz or syncope, blurred vision dizziness or abnormality.. BEHAVIORAL/PSYCH: Negative. ENDOCRINE: Negative. PHYSICAL EXAMINATION: General Appearance: Alert, cooperative, no distress, appears stated age. Neck HEENT: Supple, no lymphadenopathy, no thyroid enlargement, no carotid bruits. Lungs: Clear to auscultation without crackles or wheezes no rhonchi, no deformity. Chest Wall: Chest wall normal expansion with deep inspiration no tenderness and no deformity was found on exam, no costochondral pain or discomfort. Heart: Regular rate and rhythm, S1, S2 normal, no murmur, rub or gallop. Back: Symmetric, no curvature, ROM normal, no CVA tenderness. Abdomen: Soft positive bowel sound no organomegaly slight discomfort in the lower abdominal region area both right and left and mid lower abdominal region not able to feel any mass at this point. Extremities: Extremities normal, atraumatic, no cyanosis or edema. Pulses: 2+ and symmetric. Skin: Skin color, texture, tugor normal, no rashes or lesions. Neurologic: Alert oriented x3 cranial nerves II through XII intact, no motor deficit, no abnormal balance or gait. ASSESSMENT AND PLAN: _Acute C. difficile sepsis: Severe symptoms consistent with fever, chills, leukocytosis and hypotension with tachycardia. Continue aggressive treatment for C. difficile. _Recurrent severe C. difficile colitis: She is back on Dificid for total of 10 days to be seen infectious disease and probably will stay on prophylaxis vancomycin afterward for total of 1 month whether patient can benefit from doing stool transplant or not this to be determined. _Recurrent abdominal pain most likely from the severity of her C. difficile colitis continue to treat underlying disease continue pain management as well. _Recent recurrent acute diverticulitis with? Of colitis: Was treated and eventually will be going for colonoscopy when ready. _Mild anemia: CBC be done daily watch for any recurrent bleeding. _Electrolyte imbalance with severe hypokalemia most likely from diarrhea magnes ium is most likely is down as well continue replacement therapy for now. _History of pulmonary embolism: Continue Eliquis 5 mg twice a day. _Chronic anemia: Stable on iron supplement with ferrous sulfate 325 mg a day still on vitamin B12 supplement. _Gout: Continue allopurinol 100 mg daily. _Hypertension: Remain on lisinopril 10 mg a day we will continue medication _Obstructive sleep apnea: Continue CPAP on regular basis. _Neuropathy and chronic pain syndrome: Was on Lyrica still using hydrocodone on as-needed basis. _Chronic depression: Continue Wellbutrin SR 12 mg twice a day Prognosis: Fair. Discussion: The patient was hospitalized with recurrent C. difficile colitis will continue Dificid for the next 10 days then followed by vancomycin suspension for total of 1 month and patient might benefit from doing stool transplant as a neck step. Objective - Vital Signs Vital signs: Vital Signs Temp 97.9 F 03/13/24 01:00 Pulse 79 03/13/24 05:00 Resp 18 03/13/24 05:00 BP 172/86 03/13/24 05:00 Pulse Ox 96 03/13/24 05:00 FiO2 Intake & Output 03/12/24 03/12/24 03/13/24 06:59 18:59 06:59 Weight 92.986 kg - Labs CBC & Chem 7: 03/13/24 10:45 03/13/24 19:21 Labs: Abnormal Lab Results - Last 24 Hours (Table) 03/12/24 03/12/24 03/12/24 Range/Units 19:36 19:36 21:01 WBC 16.1 H (3.8-10.6) k/uL RBC 3.50 L (3.80-5.40) m/uL Hgb 10.7 L (11.4-16.0) gm/dL Hct 32.3 L (34.0-46.0) % Neutrophils # 12.3 H (1.3-7.7) k/uL Lymphocytes # 0.8 L (1.0-4.8) k/uL Monocytes # 2.4 H (0-1.0) k/uL Sodium 134 L (137-145) mmol/L Potassium 3.1 L (3.5-5.1) mmol/L Glucose 102 H (74-99) mg/dL Albumin 3.2 L (3.5-5.0) g/dL Urine Appearance (Clear) Urine Protein (Negative) Urine Ketones (Negative) Urine Nitrite (Negative) Ur Leukocyte Esterase (Negative) Urine Bacteria (None) /hpf Urine Mucus (None) /hpf C. difficile (EIA) Intrp Positive A (Negative) 03/12/24 Range/Units 21:55 WBC (3.8-10.6) k/uL RBC (3.80-5.40) m/uL Hgb (11.4-16.0) gm/dL Hct (34.0-46.0) % Neutrophils # (1.3-7.7) k/uL Lymphocytes # (1.0-4.8) k/uL Monocytes # (0-1.0) k/uL Sodium (137-145) mmol/L Potassium (3.5-5.1) mmol/L Glucose (74-99) mg/dL Albumin (3.5-5.0) g/dL Urine Appearance Cloudy H (Clear) Urine Protein Trace H (Negative) Urine Ketones 2+ H (Negative) Urine Nitrite Positive H (Negative) Ur Leukocyte Esterase Moderate H (Negative) Urine Bacteria Many H (None) /hpf Urine Mucus Rare H (None) /hpf C. difficile (EIA) Intrp (Negative)
[2024-03-13 11:58] LABS: ALT 11 U/L (4-34); AST 16 U/L (14-36); African American GFR (CKD) >90 (>60 ml/min/1.73 sqM); Albumin 2.7 g/dL (3.5-5.0); Alkaline Phosphatase 112 U/L (38-126); Anion Gap 9 mmol/L; Blood Urea Nitrogen 5 mg/dL (7-17); Calcium 9.5 mg/dL (8.4-10.2); Carbon Dioxide 24 mmol/L (22-30); Chloride 102 mmol/L (98-107); Globulin 2.8 g/dL; Glucose 89 mg/dL (74-99); Non-African American GFR(CKD) >90 (>60 ml/min/1.73 sqM); Potassium 2.8 mmol/L (3.5-5.1); Sodium 135 mmol/L (137-145); Total Bilirubin 0.5 mg/dL (0.2-1.3); Total Protein 5.5 g/dL (6.3-8.2)
[2024-03-13 12:00] LABS: HCT 29.5 % (34.0-46.0); HGB 9.3 gm/dL (11.4-16.0); MCH 29.2 pg (25.0-35.0); MCHC 31.6 g/dL (31.0-37.0); MCV 92.3 fL (80.0-100.0); Platelet Count 189 k/uL (150-450); RDW 14.1 % (11.5-15.5); WBC 21.2 k/uL (3.8-10.6)
[2024-03-13] MEDS: Acetaminophen-Codeine 300-30mg TAB PO PRN (12:04)
[2024-03-13] MEDS ORDERED: Potassium Replacement Protocol 1 EACH MISC MISCELLANE PRN (15:03)
[2024-03-13 17:33] LABS: Glucose,Whole Blood 82 mg/dL (70-110)
[2024-03-13] MEDS: PRAVASTATIN SODIUM 40 MG TAB PO SCH (22:11)
--- NOTE | 2024-03-13 22:11 | P.CONS ---
History of Present Illness - Reason for Consult Consult date: 03/13/24 C. difficile with relapse Requesting physician: Luis Adames - Chief Complaint Diarrhea x few days - History of Present Illness Patient is a 74-year-old female with multiple comorbidities including hypertension hyperlipidemia obstructive sleep apnea PE anxiety depression recently admitted to the hospital with severe C. difficile colitis did not respond and went to the IV Flagyl oral vancomycin patient did improved on Dificid and completed a course recently and the patient was doing really well when seen in the outpatient setting for hospital follow-up patient now presenting back to the hospital last night concerning for worsening diarrhea that has been getting worse for the last 3 days patient mention did have multiple loose stool denies have any blood or mucus in the stool has been complaining of some crampy lower abdominal pain moderate intensity some nausea with the send the patient was evaluated on presentation the hospital patient did have a temperature of 100.8 F with elevated temperature 100.7 F this morning patient was not tachycardic hypotensive or hypoxic no need for supplemental oxygen patient did have a white count of 16.1 which is slightly up to 21.2 today with a left shift creatinine has been 0.50 urine has been positive stool for significant back positive patient was started on Dificid infectious he was consulted for further management Review of Systems Positive point and negatives has been mentioned in the HPI, complete review of systems was performed and all other systems are negative Past Medical History Past Medical History: Blood Disorder, Hearing Disorder / Deafness, Hypertension, Musculoskeletal Disorder, Pulmonary Embolus (PE), Skin Disorder, Sleep Apnea/CPAP/BIPAP Additional Past Medical History / Comment(s): DDD. PE September 2019. hx gout. leiden factor V, rich foot edema,, new rich leg edema( pt to call [facility]), constipation, diverticulosis, eczema, severe urinary incontinece- uses brief, pt states dx with COVID 09/18/21 History of Any Multi-Drug Resistant Organisms: C-DIFF Year Discovered:: 02/14/24 Past Surgical History: Bariatric Surgery, Cholecystectomy, Hysterectomy, Tonsillectomy Additional Past Surgical History / Comment(s): cataract sx. Gastric stapling in 1979. Cataract surgery 2015. Colonoscopy June 2020. DEDRA/BSO with umbilical hernia repair in September 2020, cataract surgery Past Anesthesia/Blood Transfusion Reactions: No Reported Reaction Additional Past Anesthesia/Blood Transfusion Reaction / Comm: no blood tx hx Past Psychological History: Anxiety, Depression Smoking Status: Never smoker Past Alcohol Use History: None Reported Past Drug Use History: None Reported - Past Family History Mother Family Medical History: Myocardial Infarction ([place]) Father Family Medical History: Myocardial Infarction ([place]) Brother(s) Family Medical History: Deep Vein Thrombosis (DVT), Myocardial Infarction ([place]), Pulmonary Embolus Medications and Allergies Home Medications Medication Instructions Recorded Confirmed Type Apixaban [Eliquis] 5 mg PO BID 07/29/20 03/12/24 History allopurinoL [Zyloprim] 100 mg PO DAILY 07/29/20 03/12/24 History buPROPion HCL [buPROPion HCL SR] 200 mg PO BID 09/18/21 03/12/24 History Cyanocobalamin (Vitamin B-12) 1,000 mcg PO DAILY 11/18/22 03/12/24 History [Vitamin B-12] Ferrous Sulfate [Iron (65 MG 325 mg PO DAILY 11/18/22 03/12/24 History Elemental)] Cholecalciferol [Vitamin D3 (125 125 mcg PO DAILY 01/08/23 03/12/24 History Mcg = 5000 Iu)] Lutein 10 mg PO DAILY 02/14/24 03/12/24 History Multivitamins, Thera [Multivitamin 1 tab PO DAILY 02/14/24 03/12/24 History (formulary)] Pravastatin Sodium [Pravachol] 40 mg PO HS 02/14/24 03/12/24 History Triamcinolone 0.1% Cream [Kenalog 1 applic TOPICAL BID PRN 02/14/24 03/12/24 History 0.1% Cream] Venlafaxine HCl [Effexor XR] 75 mg PO DAILY 02/14/24 03/12/24 History lisinopriL [Zestril] 10 mg PO DAILY 02/14/24 03/12/24 History Pregabalin [Lyrica] 75 mg PO BID 3 Days #6 cap 02/24/24 03/12/24 Rx clonazePAM [KlonoPIN] 0.5 mg PO HS #7 tab 02/24/24 03/12/24 Rx Furosemide [Lasix] 40 mg PO DAILY 03/12/24 03/12/24 History Magnesium Citrate 250mg Gummy 250 mg PO DAILY 03/12/24 03/12/24 History Midodrine [ProAmatine] 5 mg PO TID-W/MEALS 03/12/24 03/12/24 History Potassium Chloride [Klor-Con 10 ER] 20 meq PO BID 03/12/24 03/12/24 History Cholestyramine (with Sugar) 4 gm PO BID@1200,1800 10 Days #20 03/20/24 Rx [Questran Packet] packet Fidaxomicin [Dificid] 200 mg PO BID 10 Days #20 tablet 03/20/24 Rx Lactobacillus Acidophilus 1 cap PO BID 10 Days #20 cap 03/20/24 Rx [Acidophilus Probiotic] Allergies Allergy/AdvReac Type Severity Reaction Status Date / Time itraconazole Allergy IV, Verified 03/12/24 19:45 burning from fingers to shoulder ondansetron [From Zofran] AdvReac severe Verified 03/12/24 19:45 burning @IV site, itching Physical Exam Vitals: Vital Signs Temp Pulse Resp BP Pulse Ox 03/13/24 09:00 98.4 F 03/13/24 07:24 100.7 F H 98 18 109/90 95 03/13/24 06:00 100.8 F H 81 18 165/87 96 03/13/24 05:00 79 18 172/86 96 03/13/24 04:00 81 18 120/85 95 03/13/24 03:00 79 18 143/93 98 03/13/24 01:00 97.9 F 86 18 138/83 96 03/12/24 21:42 99.1 F 81 18 142/78 95 03/12/24 20:51 99.4 F 94 18 164/81 96 03/12/24 19:49 100.8 F H 90 18 159/75 96 03/12/24 18:45 99.3 F 93 18 156/93 95 Intake and Output 03/12/24 03/13/24 03/13/24 22:59 06:59 14:59 Other: # Voids 3 # Bowel Movements 5 Weight 92.986 kg GENERAL DESCRIPTION: Elderly female lying in bed, no distress. No tachypnea or accessory muscle of respiration use. HEENT: Shows Pallor , no scleral icterus. Oral mucous membrane is dry. No pharyngeal erythema or thrush NECK: Trachea central, no thyromegaly. LUNGS: Unlabored breathing. Clear to auscultation anteriorly. No wheeze or crackle. HEART: S1, S2, regular rate and rhythm. No loud murmur ABDOMEN: Soft, mild tenderness EXTREMITIES: No edema of feet. SKIN: No rash, no masses palpable. NEUROLOGICAL: The patient is awake, alert, oriented x3, mood and affect normal. Results CBC & Chem 7: 03/19/24 07:24 03/19/24 07:24 Labs: Abnormal Lab Results - Last 24 Hours (Table) 03/12/24 03/12/24 03/12/24 Range/Units 19:36 19:36 21:01 WBC 16.1 H (3.8-10.6) k/uL RBC 3.50 L (3.80-5.40) m/uL Hgb 10.7 L (11.4-16.0) gm/dL Hct 32.3 L (34.0-46.0) % Neutrophils # 12.3 H (1.3-7.7) k/uL Lymphocytes # 0.8 L (1.0-4.8) k/uL Monocytes # 2.4 H (0-1.0) k/uL Sodium 134 L (137-145) mmol/L Potassium 3.1 L (3.5-5.1) mmol/L Glucose 102 H (74-99) mg/dL Albumin 3.2 L (3.5-5.0) g/dL Urine Appearance (Clear) Urine Protein (Negative) Urine Ketones (Negative) Urine Nitrite (Negative) Ur Leukocyte Esterase (Negative) Urine Bacteria (None) /hpf Urine Mucus (None) /hpf C. difficile (EIA) Intrp Positive A (Negative) 03/12/24 Range/Units 21:55 WBC (3.8-10.6) k/uL RBC (3.80-5.40) m/uL Hgb (11.4-16.0) gm/dL Hct (34.0-46.0) % Neutrophils # (1.3-7.7) k/uL Lymphocytes # (1.0-4.8) k/uL Monocytes # (0-1.0) k/uL Sodium (137-145) mmol/L Potassium (3.5-5.1) mmol/L Glucose (74-99) mg/dL Albumin (3.5-5.0) g/dL Urine Appearance Cloudy H (Clear) Urine Protein Trace H (Negative) Urine Ketones 2+ H (Negative) Urine Nitrite Positive H (Negative) Ur Leukocyte Esterase Moderate H (Negative) Urine Bacteria Many H (None) /hpf Urine Mucus Rare H (None) /hpf C. difficile (EIA) Intrp (Negative) Assessment and Plan (1) C. difficile colitis Status: Acute Code(s): A04.72 - ENTEROCOLITIS D/T CLOSTRIDIUM DIFFICILE, NOT SPCF RECUR SNOMED Code(s): 497665846 (2) Leukocytosis Status: Acute Code(s): D72.829 - ELEVATED WHITE BLOOD CELL COUNT, UNSPECIFIED SNOMED Code(s): 637053284 Plan: 1patient presented to hospital with intractable diarrhea in this patient who did have a history of severe C. difficile colitis about 4 weeks ago that responded to Dificid now with features of sepsis in this patient with a fever elevated white count source likely recurrent severe C. difficile colitis 2-Dificid 200 mg p.o. twice a day and avoid antimotility agent if persistent diarrhea will add Questran for symptomatic relief 3-patient has been encouraged to increase her probiotic and yogurt intake 4contact isolation We will follow on clinical condition and cultures to further adjust medication if needed Thank you for this consultation we will follow the patient along with you Dictation was produced using [employer] dictation software. please excuse any grammatical, word or spelling errors. Time with Patient: Greater than 30
[2024-03-14] MEDS: POTASSIUM CHLORIDE ER 20 MEQ TAB.ER PO SCH ×2 (04:05→09:39)
[2024-03-14 08:29] LABS: Glucose,Whole Blood 95 mg/dL (70-110)
[2024-03-14 08:51] LABS: Basophils % (A) 0 %; Eosinophils # (A) 0.1 k/uL (0-0.7); Eosinophils % (A) 0 %; HCT 30.1 % (34.0-46.0); HGB 9.7 gm/dL (11.4-16.0); Hypochromasia Slight; Lymphocytes # (A) 1.4 k/uL (1.0-4.8); Lymphocytes % (A) 12 %; MCH 29.7 pg (25.0-35.0); MCHC 32.3 g/dL (31.0-37.0); MCV 91.8 fL (80.0-100.0); Mean Platelet Volume 8.7; Monocytes # (A) 1.6 k/uL (0-1.0); Monocytes % (A) 14 %; Neutrophils # (A) 8.4 k/uL (1.3-7.7); Neutrophils % (A) 70 %; Platelet Count 182 k/uL (150-450); RBC 3.28 m/uL (3.80-5.40); RDW 14.1 % (11.5-15.5)
--- NOTE | 2024-03-14 08:54 | P.PN ---
Subjective Progress Note Date: 03/14/24 HISTORY OF PRESENT ILLNESS: 74-year-old 89 office patient with active medical history of chronic anemia, obstructive sleep apnea, hypertension, hyperlipidemia, history of pulmonary embolism still on anticoagulation, generalized anxiety and depression, recurrent UTI, recurrent abdominal pain with recurrent diverticulitis who presented to the emergency department 4 weeks ago with severe abdominal pain with intractable nausea and vomiting with slight worsening diarrhea found to have abdominal discomfort with abdominal region area and found to have UTI with questionable diverticulitis. Patient developed to have worsening diarrhea and few days later found to have an aggressive type of C. difficile colitis did not respond to vancomycin and Flagyl after being on it for almost a week. Patient was switched to Dificid and continue on it to complete total of 10 days and was sent at that time to [facility] on the [facility] where was treated for entire course of her colitis and C. difficile. Apparently has become significantly better and they are going home. Last 3 days developed to have worsening symptoms with intractable nausea along with diarrhea with worsening dehydration become extremely weak not been able to ambulate and walk ended up coming to the emergency department at [facility] where was seen and evaluated Found to have elevation of 5.8 with slightly tachycardia mildly elevated blood pressure. Laboratory value shows hemoglobin of 10.7 with white blood cell 16.1 hematocrit 32.3 platelet count of 199 electrolytes showed significant hypokalemia at 3.1. Which was started on replacement therapy. Patient apparently had completed her C. difficile treatment with Dificid but this is a relapse to treatment. Patient is quite bit high dehydrated and symptomatic she will be admitted to the hospital see infectious disease see this consult be done based on the resolved probably will go back on Dificid again not a clear if this is an IV extended or finish 10 more days of Dificid followed by vancomycin orally for 2 more weeks. 03/13/2024: She is lying in bed still having significant abdominal pain and discomfort had few episodes of diarrhea through the night, her C. difficile back positive this morning. Will continue current management for now by initiating Dificid for the next 10 days past the time probably should be on prophylaxis with vancomycin suspension for total of 1 month. Waiting for infectious disease to make the final conclusion. With recurrent abdominal pain discomfort along with the severity of her symptoms may be another CAT scan of the abdomen pelvis would not be such a bad idea to do. Also patient is still having slight fever and this is can be C. difficile colitis with mild inflammation or infection can be more aggressive than expected might require further attention cannot wait till the patient is feeling better to do another colonoscopy to exclude any other possibility for what she might have in her abdominal area that was a plan originally after the last episode but she relapsed with the C. difficile now require treatment and probably have to wait least 2 months before able to go for colonoscopy. 03/14/2024: Patient diarrhea slightly better, her abdominal pain has improved compared to yesterday, C. difficile was positive also her UA was positive at this point. She is seen infectious disease and continue Dificid at this point with Questran no antispastic medication can be used. And no antibiotic will be used for UTI. Initial admission patient was acting septic with C. difficile which is weird but with a relapse of C. difficile this can happen her white blood cell was significantly elevated waiting for lab from this morning. She is in less distress Today compared to yesterday and day before. The longer-term plan for this is to figure out a way to manage patient and probably keep her on longer term taper dose of vancomycin suspension after the Dificid is done and whether can benefit from doing a stool transplant or not this to be determined specially if she relapsed again. REVIEW OF SYSTEMS: CONSTITUTIONAL: Well-developed no acute respiratory distress. EYES: No icterus sclerae, no conjunctivitis. EARS, NOSE, MOUTH, THROAT, and FACE: No sore throat, lymphadenopathy, carotid bruits or deformity. RESPIRATORY: No SOB cough or wheezes. CARDIOVASCULAR: No CP, Palpitation, PND, Orthopnea, or angina. GASTROINTESTINAL: Slight abdominal discomfort or mild pain and nausea. GENITOURINARY: Recurrent UTI with no recent stone. INTEGUMENT/BREAST: Negative for any muscular injury with mild osteoarthritis.. HEMATOLOGIC/LYMPHATIC: Negative for bleed or purpura. MUSCULOSKELTAL: Negative for Myalgia or arthralgia. NEURLOGICAL: No LOC, Sz or syncope, blurred vision dizziness or abnormality.. BEHAVIORAL/PSYCH: Negative. ENDOCRINE: Negative. PHYSICAL EXAMINATION: General Appearance: Alert, cooperative, no distress, appears stated age. Neck HEENT: Supple, no lymphadenopathy, no thyroid enlargement, no carotid bruits. Lungs: Clear to auscultation without crackles or wheezes no rhonchi, no de formity. Chest Wall: Chest wall normal expansion with deep inspiration no tenderness and no deformity was found on exam, no costochondral pain or discomfort. Heart: Regular rate and rhythm, S1, S2 normal, no murmur, rub or gallop. Back: Symmetric, no curvature, ROM normal, no CVA tenderness. Abdomen: Soft positive bowel sound no organomegaly slight discomfort in the lower abdominal region area both right and left and mid lower abdominal region not able to feel any mass at this point. Extremities: Extremities normal, atraumatic, no cyanosis or edema. Pulses: 2+ and symmetric. Skin: Skin color, texture, tugor normal, no rashes or lesions. Neurologic: Alert oriented x3 cranial nerves II through XII intact, no motor deficit, no abnormal balance or gait. ASSESSMENT AND PLAN: _Acute C. difficile sepsis: Severe symptoms consistent with fever, chills, leukocytosis and hypotension with tachycardia. Continue aggressive treatment for C. difficile. Symptoms are much better waiting for white blood cells morning. _Recurrent severe C. difficile colitis: She is still on Dificid and responding well to it to continue supportive care with hydration and continue Questran for spasm and to firm the bowel. _Recurrent abdominal pain most likely from the severity of her C. difficile colitis continue to treat underlying disease continue pain management as well. _Recent recurrent acute diverticulitis with? Of colitis: Was treated and eventually will be going for colonoscopy when ready. _Urinary tract infection: No treatment will be provided this point patient's sy mptoms are mostly C. difficile and probably the specimen is more contaminated that is why it is positive but no antibiotic will be used for it. _Mild anemia: CBC be done daily watch for any recurrent bleeding. _Electrolyte imbalance with severe hypokalemia most likely from diarrhea magnesium is most likely is down as well continue replacement therapy for now. _History of pulmonary embolism: Continue Eliquis 5 mg twice a day. _Chronic anemia: Stable on iron supplement with ferrous sulfate 325 mg a day still on vitamin B12 supplement. _Gout: Continue allopurinol 100 mg daily. _Hypertension: Remain on lisinopril 10 mg a day we will continue medication _Obstructive sleep apnea: Continue CPAP on regular basis. _Neuropathy and chronic pain syndrome: Was on Lyrica still using hydrocodone on as-needed basis. _Chronic depression: Continue Wellbutrin SR 12 mg twice a day Prognosis: Fair. Discussion: Patient is feeling much better, continue Dificid for now, continue supportive care with Questran fluid hydration and whether she can benefit from a longer-term taper dose of vancomycin or not this to be determined. Objective - Vital Signs Vital signs: Vital Signs Temp 97.6 F 03/14/24 01:27 Pulse 80 03/14/24 01:27 Resp 18 03/14/24 01:27 BP 144/73 03/14/24 01:27 Pulse Ox 96 03/14/24 01:27 FiO2 Intake & Output 03/13/24 03/13/24 03/14/24 06:59 18:59 06:59 Intake Total 200 Balance 200 Weight 92.986 kg Intake: Intake, IV Titration 200 Amount Sodium Chloride 0.9% 1, 200 000 ml @ 100 mls/hr IV . Q10H ONE Rx#:[id number] Other: # Voids 3 4 # Bowel Movements 5 3 - Labs CBC & Chem 7: 03/13/24 10:45 03/13/24 19:21 Labs: Abnormal Lab Results - Last 24 Hours (Table) 03/13/24 03/13/24 03/13/24 Range/Units 10:45 10:45 19:21 WBC 21.2 H (3.8-10.6) k/uL RBC 3.20 L (3.80-5.40) m/uL Hgb 9.3 L (11.4-16.0) gm/dL Hct 29.5 L (34.0-46.0) % Sodium 135 L (137-145) mmol/L Potassium 2.8 L 2.9 L (3.5-5.1) mmol/L BUN 5 L (7-17) mg/dL Creatinine 0.50 L (0.52-1.04) mg/dL Total Protein 5.5 L (6.3-8.2) g/dL Albumin 2.7 L (3.5-5.0) g/dL
[2024-03-14 09:14] LABS: ALT 10 U/L (4-34); AST 17 U/L (14-36); African American GFR (CKD) >90 (>60 ml/min/1.73 sqM); Albumin 2.4 g/dL (3.5-5.0); Albumin/Globulin Ratio 0.9; Alkaline Phosphatase 97 U/L (38-126); Anion Gap 6 mmol/L; Blood Urea Nitrogen 5 mg/dL (7-17); Calcium 9.2 mg/dL (8.4-10.2); Carbon Dioxide 24 mmol/L (22-30); Chloride 107 mmol/L (98-107); Globulin 2.7 g/dL; Glucose 88 mg/dL (74-99); Magnesium 1.6 mg/dL (1.6-2.3); Non-African American GFR(CKD) >90 (>60 ml/min/1.73 sqM); Potassium 3.2 mmol/L (3.5-5.1); Sodium 137 mmol/L (137-145); Total Bilirubin 0.3 mg/dL (0.2-1.3); Total Protein 5.1 g/dL (6.3-8.2)
[2024-03-14] MEDS ORDERED: Potassium Replacement Protocol 1 EACH MISC MISCELLANE PRN (09:19)
[2024-03-14 12:58] LABS: Glucose,Whole Blood 109 mg/dL (70-110)
[2024-03-14] MEDS: CHOLESTYRAMINE (WITH SUGAR) 4 GM PACKET PO SCH (13:35)
[2024-03-15 09:34] LABS: Basophils % (A) 0 %; Eosinophils # (A) 0.1 k/uL (0-0.7); Eosinophils % (A) 1 %; HCT 30.5 % (34.0-46.0); HGB 9.8 gm/dL (11.4-16.0); Hypochromasia Slight; Lymphocytes # (A) 1.4 k/uL (1.0-4.8); Lymphocytes % (A) 19 %; MCH 29.3 pg (25.0-35.0); MCV 91.4 fL (80.0-100.0); Mean Platelet Volume 8.7; Monocytes # (A) 1.7 k/uL (0-1.0); Monocytes % (A) 22 %; Neutrophils # (A) 4.2 k/uL (1.3-7.7); Neutrophils % (A) 54 %; Platelet Count 202 k/uL (150-450); RBC 3.34 m/uL (3.80-5.40); RDW 14.1 % (11.5-15.5); WBC 7.8 k/uL (3.8-10.6)
[2024-03-15 09:48] LABS: ALT 11 U/L (4-34); AST 15 U/L (14-36); African American GFR (CKD) >90 (>60 ml/min/1.73 sqM); Albumin 2.4 g/dL (3.5-5.0); Albumin/Globulin Ratio 0.9; Alkaline Phosphatase 88 U/L (38-126); Anion Gap 5 mmol/L; Blood Urea Nitrogen 4 mg/dL (7-17); Calcium 8.9 mg/dL (8.4-10.2); Carbon Dioxide 24 mmol/L (22-30); Chloride 106 mmol/L (98-107); Globulin 2.8 g/dL; Glucose 133 mg/dL (74-99); Non-African American GFR(CKD) >90 (>60 ml/min/1.73 sqM); Sodium 135 mmol/L (137-145); Total Bilirubin 0.3 mg/dL (0.2-1.3); Total Protein 5.2 g/dL (6.3-8.2)
[2024-03-15] MEDS: POTASSIUM CHLORIDE ER 20 MEQ TAB.ER PO SCH (13:24)
--- NOTE | 2024-03-15 17:00 | P.PN ---
Subjective Progress Note Date: 03/14/24 Principal diagnosis: Reason for follow-up recurrent C. difficile colitis Patient is a 74-year-old female with multiple comorbidities including hypertension hyperlipidemia obstructive sleep apnea PE anxiety depression recently admitted to the hospital with severe C. difficile colitis for the patient recently completed a course of Dificid and now presenting back to the hospital with worsening diarrhea and fever has been diagnosed with recurrent C. difficile colitis On today's evaluation that is 03/14/2024, Patient did have resolution of her fever and is afebrile this morning patient is currently on room air and denies having any shortness of breath, the patient denies any chest pain or cough, the patient denies any nausea vomiting no worsening abdominal pain still having diarrhea Patient white count is down to 12,000 Objective - Vital Signs Vital signs: Vital Signs Temp 97.7 F 03/14/24 08:00 Pulse 83 03/14/24 08:00 Resp 17 03/14/24 08:00 BP 158/96 03/14/24 08:00 Pulse Ox 96 03/14/24 08:00 FiO2 Intake & Output 03/13/24 03/14/24 03/14/24 18:59 06:59 18:59 Intake Total 200 Balance 200 Weight 92.986 kg Intake: Intake, IV Titration 200 Amount Sodium Chloride 0.9% 1, 200 000 ml @ 100 mls/hr IV . Q10H ONE Rx#:[id number] Other: # Voids 1 # Bowel Movements 1 - Exam GENERAL DESCRIPTION: An elderly female lying in bed in no distress RESPIRATORY SYSTEM: Unlabored breathing , decreased breath sounds at bases HEART: S1 S2 regular rate and rhythm , ABDOMEN: Soft , mild tenderness EXTREMITIES: No edema feet - Labs CBC & Chem 7: 03/15/24 09:02 03/15/24 09:02 Labs: Abnormal Lab Results - Last 24 Hours (Table) 03/13/24 03/14/24 03/14/24 Range/Units 19:21 07:51 08:03 WBC 12.0 H (3.8-10.6) k/uL RBC 3.28 L (3.80-5.40) m/uL Hgb 9.7 L (11.4-16.0) gm/dL Hct 30.1 L (34.0-46.0) % Neutrophils # 8.4 H (1.3-7.7) k/uL Monocytes # 1.6 H (0-1.0) k/uL Potassium 2.9 L 3.2 L (3.5-5.1) mmol/L BUN 5 L (7-17) mg/dL Creatinine 0.44 L (0.52-1.04) mg/dL Total Protein 5.1 L (6.3-8.2) g/dL Albumin 2.4 L (3.5-5.0) g/dL Assessment and Plan (1) Clostridioides difficile infection Current Visit: Yes Status: Acute Code(s): A49.8 - OTHER BACTERIAL INFECTIONS OF UNSPECIFIED SITE SNOMED Code(s): 218431029 (2) Leukocytosis Current Visit: No Status: Acute Code(s): D72.829 - ELEVATED WHITE BLOOD CELL COUNT, UNSPECIFIED SNOMED Code(s): 841183852 Plan: 1patient presented to hospital with intractable diarrhea in this patient who did have a history of severe C. difficile colitis about 4 weeks ago that responded to Dificid now with features of sepsis in this patient with a fever elevated white count source likely recurrent severe C. difficile colitis 2-patient to continue with Dificid 200 mg p.o. twice a day along with Questran for symptomatic relief and monitor clinical course closely Dictation was produced using [employer] dictation software. please excuse any grammatical, word or spelling errors. Time with Patient: Less than 30
--- NOTE | 2024-03-15 17:01 | P.PN ---
Subjective Progress Note Date: 03/15/24 Principal diagnosis: Reason for follow-up recurrent C. difficile colitis Patient is a 74-year-old female with multiple comorbidities including hypertension hyperlipidemia obstructive sleep apnea PE anxiety depression recently admitted to the hospital with severe C. difficile colitis for the patient recently completed a course of Dificid and now presenting back to the hospital with worsening diarrhea and fever has been diagnosed with recurrent C. difficile colitis On today's evaluation that is 03/15/2024, patient has been afebrile, patient is breathing comfortably and is currently on room air, patient denies having any significant cough no chest pain shortness of breath, patient denies nausea vomiting still complaining of some lower abdominal pain but no worsening patient mentioning significant diarrhea however nursing staff mention only 1 episode this morning which is slightly forming up. Patient was normalized to 7.8, creatinine 0.42 Objective - Vital Signs Vital signs: Vital Signs Temp 97.9 F 03/15/24 07:40 Pulse 79 03/15/24 07:40 Resp 19 03/15/24 07:40 BP 155/88 03/15/24 07:40 Pulse Ox 96 03/15/24 07:40 FiO2 Intake & Output 03/14/24 03/15/24 03/15/24 18:59 06:59 18:59 Intake Total 1200 590 Balance 1200 590 Intake: Oral 1200 590 Other: Voiding Method Bedside Commode # Voids 3 # Bowel Movements 3 1 1 - Exam GENERAL DESCRIPTION: An elderly female lying in bed in no distress RESPIRATORY SYSTEM: Unlabored breathing , decreased breath sounds at bases HEART: S1 S2 regular rate and rhythm , ABDOMEN: Soft , no tenderness EXTREMITIES: No edema feet - Labs CBC & Chem 7: 03/15/24 09:02 03/15/24 09:02 Labs: Abnormal Lab Results - Last 24 Hours (Table) 03/15/24 03/15/24 Range/Units 09:02 09:02 RBC 3.34 L (3.80-5.40) m/uL Hgb 9.8 L (11.4-16.0) gm/dL Hct 30.5 L (34.0-46.0) % Monocytes # 1.7 H (0-1.0) k/uL Sodium 135 L (137-145) mmol/L Potassium 3.0 L (3.5-5.1) mmol/L BUN 4 L (7-17) mg/dL Creatinine 0.42 L (0.52-1.04) mg/dL Glucose 133 H (74-99) mg/dL Total Protein 5.2 L (6.3-8.2) g/dL Albumin 2.4 L (3.5-5.0) g/dL Assessment and Plan (1) C. difficile colitis Current Visit: No Status: Acute Code(s): A04.72 - ENTEROCOLITIS D/T CLOSTRIDIUM DIFFICILE, NOT SPCF RECUR SNOMED Code(s): 621478674 Plan: 1patient presented to hospital with intractable diarrhea in this patient who did have a history of severe C. difficile colitis about 4 weeks ago that r esponded to Dificid now with features of sepsis in this patient with a fever elevated white count source likely recurrent severe C. difficile colitis 2-patient did have resolution of her leukocytosis and diarrhea improved per the nursing staff, to continue with Dificid 200 mg p.o. twice a day along with Questran for symptomatic relief, plan will be at least 10-day course of oral Dificid on discharge Dictation was produced using [employer] dictation software. please excuse any grammatical, word or spelling errors. Time with Patient: Less than 30
--- NOTE | 2024-03-16 05:19 | P.PN ---
Subjective Progress Note Date: 03/15/24 HISTORY OF PRESENT ILLNESS: 74-year-old 89 office patient with active medical history of chronic anemia, obstructive sleep apnea, hypertension, hyperlipidemia, history of pulmonary embolism still on anticoagulation, generalized anxiety and depression, recurrent UTI, recurrent abdominal pain with recurrent diverticulitis who presented to the emergency department 4 weeks ago with severe abdominal pain with intractable nausea and vomiting with slight worsening diarrhea found to have abdominal discomfort with abdominal region area and found to have UTI with questionable diverticulitis. Patient developed to have worsening diarrhea and few days later found to have an aggressive type of C. difficile colitis did not respond to vancomycin and Flagyl after being on it for almost a week. Patient was switched to Dificid and continue on it to complete total of 10 days and was sent at that time to [facility] the [facility] where was treated for entire course of her colitis and C. difficile. Apparently has become significantly better and they are going home. Last 3 days developed to have worsening symptoms with intractable nausea along with diarrhea with worsening dehydration become extremely weak not been able to ambulate and walk ended up coming to the emergency department at [facility] where was seen and evaluated Found to have elevation of 5.8 with slightly tachycardia mildly elevated blood pressure. Laboratory value shows hemoglobin of 10.7 with white blood cell 16.1 hematocrit 32.3 platelet count of 199 electrolytes showed significant hypokalemia at 3.1. Which was started on replacement therapy. Patient apparently had completed her C. difficile treatment with Dificid but this is a relapse to treatment. Patient is quite bit high dehydrated and symptomatic she will be admitted to the hospital see infectious disease see this consult be done based on the resolved probably will go back on Dificid again not a clear if this is an IV extended or finish 10 more days of Dificid followed by vancomycin orally for 2 more weeks. 03/13/2024: She is lying in bed still having significant abdominal pain and discomfort had few episodes of diarrhea through the night, her C. difficile back positive this morning. Will continue current management for now by initiating Dificid for the next 10 days past the time probably should be on prophylaxis with vancomycin suspension for total of 1 month. Waiting for infectious disease to make the final conclusion. With recurrent abdominal pain discomfort along with the severity of her symptoms may be another CAT scan of the abdomen pelvis would not be such a bad idea to do. Also patient is still having slight fever and this is can be C. difficile colitis with mild inflammation or infection can be more aggressive than expected might require further attention cannot wait till the patient is feeling better to do another colonoscopy to exclude any other possibility for what she might have in her abdominal area that was a plan originally after the last episode but she relapsed with the C. difficile now require treatment and probably have to wait least 2 months before able to go for colonoscopy. 03/14/2024: Patient diarrhea slightly better, her abdominal pain has improved compared to yesterday, C. difficile was positive also her UA was positive at this point. She is seen infectious disease and continue Dificid at this point with Questran no antispastic medication can be used. And no antibiotic will be used for UTI. Initial admission patient was acting septic with C. difficile which is weird but with a relapse of C. difficile this can happen her white blood cell was significantly elevated waiting for lab from this morning. She is in less distress Today compared to yesterday and day before. The longer-term plan for this is to figure out a way to manage patient and probably keep her on longer term taper dose of vancomycin suspension after the Dificid is done and whether can benefit from doing a stool transplant or not this to be determined specially if she relapsed again. 03/15/2024: Patient is slightly bit more comfortable today having less abdominal pain discomfort, had less diarrhea than before and according to her nurse had 1 episode through the night only and 1 this morning. I had long discussion with the yesterday night explained to him the prognosis, not going on with the patient and been told the chance of C. diffici le relapse is quite bit high even if the treatment completed at this time and had an extension with oral vancomycin afterward for period of time she could have this relapse again. And told him She had an episode if by choice decided to take her to one of the large center like [facility] or [place] if you feel more comfortable to have this winded relapse manage at larger center would be okay. Laboratory value still showing sodium 135 potassium 3.0 despite replacement therapy magnesium down to 1.2 as well continue replacing potassium magnesium almost on daily basis. The plan as soon as the diarrhea slowed down to be able to send patient home on Dificid which, the plan with infectious disease for possible extended treatment. REVIEW OF SYSTEMS: CONSTITUTIONAL: Well-developed no acute respiratory distress. EYES: No icterus sclerae, no conjunctivitis. EARS, NOSE, MOUTH, THROAT, and FACE: No sore throat, lymphadenopathy, carotid bruits or deformity. RESPIRATORY: No SOB cough or wheezes. CARDIOVASCULAR: No CP, Palpitation, PND, Orthopnea, or angina. GASTROINTESTINAL: Slight abdominal discomfort or mild pain and nausea. GENITOURINARY: Recurrent UTI with no recent stone. INTEGUMENT/BREAST: Negative for any muscular injury with mild osteoarthritis.. HEMATOLOGIC/LYMPHATIC: Negative for bleed or purpura. MUSCULOSKELTAL: Negative for Myalgia or arthralgia. NEURLOGICAL: No LOC, Sz or syncope, blurred vision dizziness or abnormality.. BEHAVIORAL/PSYCH: Negative. ENDOCRINE: Negative. PHYSICAL EXAMINATION: General Appearance: Alert, cooperative, no distress, appears stated age. Neck HEENT: Supple, no lymphadenopathy, no thyroid enlargement, no carotid bruits. Lungs: Clear to auscultation without crackles or wheezes no rhonchi, no deformity. Chest Wall: Chest wall normal expansion with deep inspiration no tenderness and no deformity was found on exam, no costochondral pain or discomfort. Heart: Regular rate and rhythm, S1, S2 normal, no murmur, rub or gallop. Back: Symmetric, no curvature, ROM normal, no CVA tenderness. Abdomen: Soft positive bowel sound no organomegaly slight discomfort in the lower abdominal region area both right and left and mid lower abdominal region not able to feel any mass at this point. Extremities: Extremities normal, atraumatic, no cyanosis or edema. Pulses: 2+ and symmetric. Skin: Skin color, texture, tugor normal, no rashes or lesions. Neurologic: Alert oriented x3 cranial nerves II through XII intact, no motor deficit, no abnormal balance or gait. ASSESSMENT AND PLAN: _Acute C. difficile sepsis: Specially with her leukocytosis hypertension tachy cardia and elevated lactic acid, much better so far continue current management. _Recurrent severe C. difficile colitis: Continue supportive "care with hydration continue Questran along with Dificid 200 mg twice a day for total of 10 days for symptomatic control and the plan afterward may be to extend treatment beyond this point patient still will be overdue for colonoscopy in 4 to 6 weeks if she is symptom-free. _Recurrent abdominal pain most likely from the severity of her C. difficile colitis continue to treat underlying disease continue pain management as well. _Electrolyte imbalance: Continue to have hypokalemia almost on daily basis and hypomagnesemia being treated for with replacement therapy. _Recent recurrent acute diverticulitis with? Of colitis: Was treated and eventually will be going for colonoscopy when ready. _Urinary tract infection: No treatment will be provided this point patient's symptoms are mostly C. difficile and probably the specimen is more contaminated that is why it is positive but no antibiotic will be used for it. _Mild anemia: CBC be done daily watch for any recurrent bleeding. _History of pulmonary embolism: Continue Eliquis 5 mg twice a day. _Chronic anemia: Stable on iron supplement with ferrous sulfate 325 mg a day still on vitamin B12 supplement. _Gout: Continue allopurinol 100 mg daily. _Hypertension: Remain on lisinopril 10 mg a day we will continue medication _Obstructive sleep apnea: Continue CPAP on regular basis. _Neuropathy and chronic pain syndrome: Was on Lyrica still using hydrocodone on as-needed basis. _Chronic depression: Continue Wellbutrin SR 12 mg twice a day Family meeting: I had long discussion with the about the plan update on prognosis possibility of relapse, he understand with expected this time he believes his will be coming home when she is done when the diarrhea is better and he would like having home care along with physical therapy at home. Prognosis: Fair. Discussion: Continue oral treatment continue hydration and if the diarrhea is better tomorrow or maximum day after tomorrow patient can be discharged on oral Dificid and Questran with potential plan to follow-up with infectious disease before her treatment is completed to see need to be extended or need to be on prophylaxis management with vancomycin suspension afterward. Objective - Vital Signs Vital signs: Vital Signs Temp 97.9 F 03/16/24 02:00 Pulse 96 03/16/24 02:00 Resp 16 03/16/24 02:00 BP 127/76 03/16/24 02:00 Pulse Ox 97 03/16/24 02:00 FiO2 Intake & Output 03/15/24 03/15/24 03/16/24 06:59 18:59 06:59 Intake Total 590 240 Balance 590 240 Intake: Oral 590 240 Other: Voiding Method Bedside Commode Toilet # Voids 1 # Bowel Movements 1 1 - Labs CBC & Chem 7: 03/15/24 09:02 03/15/24 17:05 Labs: Abnormal Lab Results - Last 24 Hours (Table) 03/15/24 03/15/24 03/15/24 Range/Units 09:02 09:02 17:05 RBC 3.34 L (3.80-5.40) m/uL Hgb 9.8 L (11.4-16.0) gm/dL Hct 30.5 L (34.0-46.0) % Monocytes # 1.7 H (0-1.0) k/uL Sodium 135 L (137-145) mmol/L Potassium 3.0 L (3.5-5.1) mmol/L BUN 4 L (7-17) mg/dL Creatinine 0.42 L (0.52-1.04) mg/dL Glucose 133 H (74-99) mg/dL Magnesium 1.2 L (1.5-2.4) mg/dL Total Protein 5.2 L (6.3-8.2) g/dL Albumin 2.4 L (3.5-5.0) g/dL
[2024-03-16 10:30] LABS: HCT 29.4 % (37.2-46.3); HGB 9.4 g/dL (12.0-15.0); MCH 29.2 pg (27.0-32.0); MCV 91.3 FL (80.0-97.0); NRBC Per 100 WBC 0 X 10*3/uL (0.00-0.01); Platelet Count 231 X 10*3/uL (140-440); RBC 3.22 X 10*6/uL (4.10-5.20); RDW 13.9 % (11.5-14.5); WBC 7.09 X 10*3/uL (4.50-10.00)
[2024-03-16 14:02] VITALS: BMI 32.1
--- NOTE | 2024-03-16 16:15 | P.PN ---
Subjective Progress Note Date: 03/16/24 Principal diagnosis: Reason for follow-up recurrent C. difficile colitis Patient is a 74-year-old female with multiple comorbidities including hypertension hyperlipidemia obstructive sleep apnea PE anxiety depression recently admitted to the hospital with severe C. difficile colitis for the patient recently completed a course of Dificid and now presenting back to the hospital with worsening diarrhea and fever has been diagnosed with recurrent C. difficile colitis On today's evaluation that is 03/16/2024,the patient denies any fever or any chills, patient is breathing comfortably on room air, the patient denies chest pain shortness of breath and no significant cough, patient denies nausea vomiting abdominal pain has decreased intensity and diarrhea has slowed down per the nursing staff. Patient white count 7.09 Objective - Vital Signs Vital signs: Vital Signs Temp 98 F 03/16/24 12:21 Pulse 81 03/16/24 12:21 Resp 18 03/16/24 12:21 BP 123/85 03/16/24 12:21 Pulse Ox 97 03/16/24 12:21 FiO2 Intake & Output 03/15/24 03/16/24 03/16/24 18:59 06:59 18:59 Intake Total 640 Balance 640 Weight 92.986 kg Intake: Oral 640 Other: Voiding Method Bedside Commode Toilet Bedside Commode Diaper # Voids 1 3 1 # Bowel Movements 1 1 - Exam GENERAL DESCRIPTION: An elderly female lying in bed in no distress RESPIRATORY SYSTEM: Unlabored breathing , decreased breath sounds at bases HEART: S1 S2 regular rate and rhythm , ABDOMEN: Soft , no tenderness EXTREMITIES: No edema feet - Labs CBC & Chem 7: 03/16/24 07:19 03/15/24 17:05 Labs: Abnormal Lab Results - Last 24 Hours (Table) 03/15/24 03/16/24 Range/Units 17:05 07:19 RBC 3.22 L (4.10-5.20) X 10*6/uL Hgb 9.4 L (12.0-15.0) g/dL Hct 29.4 L (37.2-46.3) % Magnesium 1.2 L (1.5-2.4) mg/dL Assessment and Plan (1) C. difficile colitis Current Visit: No Status: Acute Code(s): A04.72 - ENTEROCOLITIS D/T CLOSTRIDIUM DIFFICILE, NOT SPCF RECUR SNOMED Code(s): 639191855 Plan: 1patient presented to hospital with intractable diarrhea in this patient who did have a history of severe C. difficile colitis about 4 weeks ago that responded to Dificid now with features of sepsis in this patient with a fever elevated white count source likely recurrent severe C. difficile colitis 2-patient did have resolution of her leukocytosis and diarrhea improved per the nursing staff, patient to continue with the Dificid and Questran encouraged to increase her probiotic and yogurt intake at the bedside multiple question has been answered including risk of recurrent infection and will benefit from stool transplant options of going to [facility] versus doing locally at [facility] Dictation was produced using [employer] dictation software. please excuse any grammatical, word or spelling errors. Time with Patient: Less than 30
--- NOTE | 2024-03-16 17:11 | P.PN ---
Subjective Progress Note Date: 03/16/24 HISTORY OF PRESENT ILLNESS: 74-year-old 89 office patient with active medical history of chronic anemia, obstructive sleep apnea, hypertension, hyperlipidemia, history of pulmonary embolism still on anticoagulation, generalized anxiety and depression, recurrent UTI, recurrent abdominal pain with recurrent diverticulitis who presented to the emergency department 4 weeks ago with severe abdominal pain with intractable nausea and vomiting with slight worsening diarrhea found to have abdominal discomfort with abdominal region area and found to have UTI with questionable diverticulitis. Patient developed to have worsening diarrhea and few days later found to have an aggressive type of C. difficile colitis did not respond to vancomycin and Flagyl after being on it for almost a week. Patient was switched to Dificid and continue on it to complete total of 10 days and was sent at that time to [facility] on the [facility] rehab where was treated for entire course of her colitis and C. difficile. Apparently has become significantly better and they are going home. Last 3 days developed to have worsening symptoms with intractable nausea along with diarrhea with worsening dehydration become extremely weak not been able to ambulate and walk ended up coming to the emergency department at [facility] where was seen and evaluated Found to have elevation of 5.8 with slightly tachycardia mildly elevated blood pressure. Laboratory value shows hemoglobin of 10.7 with white blood cell 16.1 hematocrit 32.3 platelet count of 199 electrolytes showed significant hypokalemia at 3.1. Which was started on replacement therapy. Patient apparently had completed her C. difficile treatment with Dificid but this is a relapse to treatment. Patient is quite bit high dehydrated and symptomatic she will be admitted to the hospital see infectious disease see this consult be done based on the resolved probably will go back on Dificid again not a clear if this is an IV extended or finish 10 more days of Dificid followed by vancomycin orally for 2 more weeks. 03/13/2024: She is lying in bed still having significant abdominal pain and discomfort had few episodes of diarrhea through the night, her C. difficile back positive this morning. Will continue current management for now by initiating Dificid for the next 10 days past the time probably should be on prophylaxis with vancomycin suspension for total of 1 month. Waiting for infectious disease to make the final conclusion. With recurrent abdominal pain discomfort along with the severity of her symptoms may be another CAT scan of the abdomen pelvis would not be such a bad idea to do. Also patient is still having slight fever and this is can be C. difficile colitis with mild inflammation or infection can be more aggressive than expected might require further attention cannot wait till the patient is feeling better to do another colonoscopy to exclude any other possibility for what she might have in her abdominal area that was a plan originally after the last episode but she relapsed with the C. difficile now require treatment and probably have to wait least 2 months before able to go for colonoscopy. 03/14/2024: Patient diarrhea slightly better, her abdominal pain has improved compared to yesterday, C. difficile was positive also her UA was positive at this point. She is seen infectious disease and continue Dificid at this point with Questran no antispastic medication can be used. And no antibiotic will be used for UTI. Initial admission patient was acting septic with C. difficile which is weird but with a relapse of C. difficile this can happen her white blood cell was significantly elevated waiting for lab from this morning. She is in less distress Today compared to yesterday and day before. The longer-term plan for this is to figure out a way to manage patient and probably keep her on longer term taper dose of vancomycin suspension after the Dificid is done and whether can benefit from doing a stool transplant or not this to be determined specially if she relapsed again. 03/15/2024: Patient is slightly bit more comfortable today having less abdominal pain discomfort, had less diarrhea than before and according to her nurse had 1 episode through the night only and 1 this morning. I had long discussion with the yesterday night explained to him the prognosis, not going on with the patient and been told the chance of C. diffici le relapse is quite bit high even if the treatment completed at this time and had an extension with oral vancomycin afterward for period of time she could have this relapse again. And told him She had an episode if by choice decided to take her to one of the large center like [facility] or [place] if you feel more comfortable to have this winded relapse manage at larger center would be okay. Laboratory value still showing sodium 135 potassium 3.0 despite replacement therapy magnesium down to 1.2 as well continue replacing potassium magnesium almost on daily basis. The plan as soon as the diarrhea slowed down to be able to send patient home on Dificid which, the plan with infectious disease for possible extended treatment. 03/12/2024: She is feeling better with significant decrease in abdominal pain, continue to have severe diarrhea since midnight for this morning had 7 episodes so far. He is responding well to Dificid and her white blood cell is down definitely still seen infectious disease who believe the benefit of Questran and Dificid for now no other management needed but when she is discharged she need to complete total of 10 days of Dificid and if this is to fail down the road she might require stool transplant as the best next steps. The patient and her do not feel strong to go home today 1 or 2 delayed at least another 24 hours see if her diarrhea improves that she is able to help herself. Also she refused to consider the idea of going to rehab or SNF anywhere. REVIEW OF SYSTEMS: CONSTITUTIONAL: Well-developed no acute respiratory distress. EYES: No icterus sclerae, no conjunctivitis. EARS, NOSE, MOUTH, THROAT, and FACE: No sore throat, lymphadenopathy, carotid bruits or deformity. RESPIRATORY: No SOB cough or wheezes. CARDIOVASCULAR: No CP, Palpitation, PND, Orthopnea, or angina. GASTROINTESTINAL: Slight abdominal discomfort or mild pain and nausea. GENITOURINARY: Recurrent UTI with no recent stone. INTEGUMENT/BREAST: Negative for any muscular injury with mild osteoarthritis.. HEMATOLOGIC/LYMPHATIC: Negative for bleed or purpura. MUSCULOSKELTAL: Negative for Myalgia or arthralgia. NEURLOGICAL: No LOC, Sz or syncope, blurred vision dizziness or abnormality.. BEHAVIORAL/PSYCH: Negative. ENDOCRINE: Negative. PHYSICAL EXAMINATION: General Appearance: Alert, cooperative, no distress, appears stated age. Neck HEENT: Supple, no lymphadenopathy, no thyroid enlargement, no carotid bruits. Lungs: Clear to auscultation without crackles or wheezes no rhonchi, no deformity. Chest Wall: Chest wall normal expansion with deep inspiration no tenderness and no deformity was found on exam, no costochondral pain or discomfort. Heart: Regular rate and rhythm, S1, S2 normal, no murmur, rub or gallop. Back: Symmetric, no curvature, ROM normal, no CVA tenderness. Abdomen: Soft positive bowel sound no organomegaly slight discomfort in the lower abdominal region area both right and left and mid lower abdominal region not able to feel any mass at this point. Extremities: Extremities normal, atraumatic, no cyanosis or edema. Pulses: 2+ and symmetric. Skin: Skin color, texture, tugor normal, no rashes or lesions. Neurologic: Alert oriented x3 cranial nerves II through XII intact, no motor deficit, no abnormal balance or gait. ASSESSMENT AND PLAN: _Acute C. difficile sepsis: Specially with her leukocytosis hypertension tachycardia and elevated lactic acid, much better so far continue current management. _Recurrent severe C. difficile colitis: Continue Questran along with Dificid for now to complete total of 10 days if this relapse she will require to have a stool transplant as a neck step. _Recurrent abdominal pain most likely from the severity of her C. difficile colitis continue to treat underlying disease continue pain management as well. _Electrolyte imbalance: Potassium is much better magnesium is still fluctuating slight bit continue replacement therapy. _Recent recurrent acute diverticulitis with? Of colitis: Was treated and even tually will be going for colonoscopy when ready. _Urinary tract infection: No treatment will be provided this point patient's symptoms are mostly C. difficile and probably the specimen is more contaminated that is why it is positive but no antibiotic will be used for it. _Mild anemia: CBC be done daily watch for any recurrent bleeding. _History of pulmonary embolism: Continue Eliquis 5 mg twice a day. _Chronic anemia: Stable on iron supplement with ferrous sulfate 325 mg a day still on vitamin B12 supplement. _Gout: Continue allopurinol 100 mg daily. _Hypertension: Remain on lisinopril 10 mg a day we will continue medication _Obstructive sleep apnea: Continue CPAP on regular basis. _Neuropathy and chronic pain syndrome: Was on Lyrica still using hydrocodone on as-needed basis. _Chronic depression: Continue Wellbutrin SR 12 mg twice a day Family meeting: The was on the bedside had many questions about the condition, how contagious, the labs, and plan from here on. He is willing to take oral home when she is ready does not want to take her to rehab same time he is worried about this relapse again. Was told there is no guarantee that started on her labs she might have another episode after she finished her treatment if that is to happen she is going for stool transplant as a neck step side management and we have infectious disease support she is going to have follow-up with infectious disease after discharge this time as well. Prognosis: Fair. Expected discharge: Possibly tomorrow 03/17-hour maximum 03/18/2024. Objective - Vital Signs Vital signs: Vital Signs Temp 97.9 F 03/16/24 02:00 Pulse 96 03/16/24 02:00 Resp 16 03/16/24 02:00 BP 127/76 03/16/24 02:00 Pulse Ox 97 03/16/24 02:00 FiO2 Intake & Output 03/15/24 03/15/24 03/16/24 06:59 18:59 06:59 Intake Total 590 240 Balance 590 240 Intake: Oral 590 240 Other: Voiding Method Bedside Commode Toilet # Voids 1 # Bowel Movements 1 1 - Labs CBC & Chem 7: 03/16/24 07:19 03/15/24 17:05 Labs: Abnormal Lab Results - Last 24 Hours (Table) 03/15/24 03/15/24 03/15/24 Range/Units 09:02 09:02 17:05 RBC 3.34 L (3.80-5.40) m/uL Hgb 9.8 L (11.4-16.0) gm/dL Hct 30.5 L (34.0-46.0) % Monocytes # 1.7 H (0-1.0) k/uL Sodium 135 L (137-145) mmol/L Potassium 3.0 L (3.5-5.1) mmol/L BUN 4 L (7-17) mg/dL Creatinine 0.42 L (0.52-1.04) mg/dL Glucose 133 H (74-99) mg/dL Magnesium 1.2 L (1.5-2.4) mg/dL Total Protein 5.2 L (6.3-8.2) g/dL Albumin 2.4 L (3.5-5.0) g/dL
--- NOTE | 2024-03-17 13:42 | P.PN ---
Subjective Progress Note Date: 03/17/24 74-year-old 89 office patient with active medical history of chronic anemia, obstructive sleep apnea, hypertension, hyperlipidemia, history of pulmonary embolism still on anticoagulation, generalized anxiety and depression, recurrent UTI, recurrent abdominal pain with recurrent diverticulitis who presented to the emergency department 4 weeks ago with severe abdominal pain with intractable nausea and vomiting with slight worsening diarrhea found to have abdominal discomfort with abdominal region area and found to have UTI with questionable diverticulitis. Patient developed to have worsening diarrhea and few days later found to have an aggressive type of C. difficile colitis did not respond to van comycin and Flagyl after being on it for almost a week. Patient was switched to Dificid and continue on it to complete total of 10 days and was sent at that time to [facility] on the [facility] rehab where was treated for entire course of her colitis and C. difficile. Apparently has become significantly better and they are going home. Last 3 days developed to have worsening symptoms with intractable nausea along with diarrhea with worsening dehydration become extremely weak not been able to ambulate and walk ended up coming to the emergency department at [facility] where was seen and evaluated Found to have elevation of 5.8 with slightly tachycardia mildly elevated blood pressure. Laboratory value shows hemoglobin of 10.7 with white blood cell 16.1 hematocrit 32.3 platelet count of 199 electrolytes showed significant hypokalemia at 3.1. Which was started on repl acement therapy. Patient apparently had completed her C. difficile treatment with Dificid but this is a relapse to treatment. Patient is quite bit high dehydrated and symptomatic she will be admitted to the hospital see infectious disease see this consult be done based on the resolved probably will go back on Dificid again not a clear if this is an IV extended or finish 10 more days of Dificid followed by vancomycin orally for 2 more weeks. 03/13/2024: She is lying in bed still having significant abdominal pain and discomfort had few episodes of diarrhea through the night, her C. difficile back positive this morning. Will continue current management for now by initiating Dificid for the next 10 days past the time probably should be on prophylaxis with vancomycin suspension for total of 1 month. Waiting for infectious disease to make the final conclusion. With recurrent abdominal pain discomfort along with the severity of her symptoms may be another CAT scan of the abdomen pelvis would not be such a bad idea to do. Also patient is still having slight fever and this is can be C. difficile colitis with mild inflammation or infection can be more aggressive than expected might require further attention cannot wait till the patient is feeling better to do another colonoscopy to exclude any other possibility for what she might have in her abdominal area that was a plan originally after the last episode but she relapsed with the C. difficile now require treatment and probably have to wait least 2 months before able to go for colonoscopy. 03/14/2024: Patient diarrhea slightly better, her abdominal pain has improved compared to yesterday, C. difficile was positive also her UA was positive at this point. She is seen infectious disease and continue Dificid at this point with Questran no antispastic medication can be used. And no antibiotic will be used for UTI. Initial admission patient was acting septic with C. difficile which is weird but with a relapse of C. difficile this can happen her white blood cell was significantly elevated waiting for lab from this morning. She is in less distress Today compared to yesterday and day before. The longer-term plan for this is to figure out a way to manage patient and probably keep her on longer term taper dose of vancomycin suspension after the Dificid is done and whether can benefit from doing a stool transplant or not this to be determined specially if she relapsed again. 03/15/2024: Patient is slightly bit more comfortable today having less abdominal pain discomfort, had less diarrhea than before and according to her nurse had 1 episode through the night only and 1 this morning. I had long discussion with the yesterday night explained to him the prognosis, not going on with the patient and been told the chance of C. difficile relapse is quite bit high even if the treatment completed at this time and had an extension with oral vancomycin afterward for period of time she could have this relapse again. And told him She had an episode if by choice decided to take her to one of the large center like [facility] or [place] if you feel more comfortable to have this winded relapse manage at larger center would be okay. Laboratory value still showing sodium 135 potassium 3.0 despite replacement therapy magnesium down to 1.2 as well continue replacing potassium magnesium almost on daily basis. The plan as soon as the diarrhea slowed down to be able to send patient home on Dificid which, the plan with infectious disease for possible extended treatment. 03/16/2024: She is feeling better with significant decrease in abdominal pain, continue to have severe diarrhea since midnight for this morning had 7 episodes so far. He is responding well to Dificid and her white blood cell is down definitely still seen infectious disease who believe the benefit of Questran and Dificid for now no other management needed but when she is discharged she need to complete total of 10 days of Dificid and if this is to fail down the road she might require stool transplant as the best next steps. The patient and her do not feel strong to go home today 1 or 2 delayed a t least another 24 hours see if her diarrhea improves that she is able to help herself. Also she refused to consider the idea of going to rehab or SNF anywhere. 03/17. Patient seen and examined. Dr. Quan took over care. Patient still having diarrhea. Sitting upright in the chair. Denies any lightheadedness or dizziness. Patient has good appetite REVIEW OF SYSTEMS: CONSTITUTIONAL: No fever, no malaise,. CARDIOVASCULAR: No chest pain, no palpitations, no syncope. PULMONARY: No shortness of breath, no cough, GASTROINTESTINAL: No diarrhea, no nausea, no vomiting, no abdominal pain. NEUROLOGICAL: No headaches, no weakness, PHYSICAL EXAMINATION: GENERAL: The patient is alert and oriented x3, not in any acute distress. Well developed, well nourished. HEENT: Pupils are round and equally reacting to light. EOMI. No scleral icterus. No conjunctival pallor. Normocephalic, atraumatic. No pharyngeal erythema. No thyromegaly. CARDIOVASCULAR: S1 and S2 present. No murmurs, rubs, or gallops. PULMONARY: Chest is clear to auscultation, no wheezing or crackles. ABDOMEN: Soft, nontender, nondistended, normoactive bowel sounds. No palpable organomegaly. MUSCULOSKELETAL: No joint swelling or deformity. EXTREMITIES: No cyanosis, clubbing, or pedal edema. NEUROLOGICAL: Gross neurological examination did not reveal any focal deficits. SKIN: No rashes. Assessment and plan _Acute C. difficile sepsis _Recurrent severe C. difficile colitis _Recurrent abdominal pain Monitor vital signs Continue Dificid Continue lactobacillus and Questran _Electrolyte imbalance: Monitor BMP _Urinary tract infection: No treatment will be provided this point patient's symptoms are mostly C. difficile and probably the specimen is more contaminated that is why it is positive but no antibiotic will be used for it. _Mild anemia: CBC be done daily watch for any recurrent bleeding. _History of pulmonary embolism: Continue Eliquis 5 mg twice a day. _Chronic anemia: Stable on iron supplement with ferrous sulfate 325 mg a day still on vitamin B12 supplement. _Gout: Continue allopurinol 100 mg daily. _Hypertension: Continue lisinopril _Obstructive sleep apnea: Continue CPAP on regular basis. _Neuropathy and chronic pain syndrome: Was on Lyrica still using hydrocodone on as-needed basis. _Chronic depression: Continue Wellbutrin SR 12 mg twice a day Labs and medication were reviewed.. Continue same treatment. Continue with symptomatic treatment. Resume home medication. Monitor labs and vitals. DVT and GI prophylaxis. Further recommendations as per clinical course of the patient Dictation was produced using [employer] dictation software. please excuse any grammatical, word or spelling errors. Objective - Vital Signs Vital signs: Vital Signs Temp 98.3 F 03/17/24 07:46 Pulse 87 03/17/24 02:00 Resp 16 03/17/24 07:46 BP 128/78 03/17/24 07:46 Pulse Ox 96 03/17/24 07:46 FiO2 Intake & Output 03/16/24 03/17/24 03/17/24 18:59 06:59 18:59 Output Total 300 Balance -300 Weight 92.986 kg Output: Urine 300 Other: Voiding Method Bedside Commode Bedside Commode Bedside Commode Diaper Diaper Diaper # Voids 1 0 1 # Bowel Movements 1 0 - Labs CBC & Chem 7: 03/16/24 07:19 03/15/24 17:05
--- NOTE | 2024-03-17 20:56 | P.PN ---
Subjective Progress Note Date: 03/17/24 Principal diagnosis: Reason for follow-up recurrent C. difficile colitis Patient is a 74-year-old female with multiple comorbidities including hypertension hyperlipidemia obstructive sleep apnea PE anxiety depression recently admitted to the hospital with severe C. difficile colitis for the patient recently completed a course of Dificid and now presenting back to the hospital with worsening diarrhea and fever has been diagnosed with recurrent C. difficile colitis On today's evaluation that is 03/17/2024,the patient remains to be afebrile, patient is on room air not requiring supplemental oxygen and denies any shortness of breath no chest pain or cough.Patient denies having any nausea or vomiting, no abdominal pain and diarrhea has slowed down. No new symptoms Patient white count is 7.09 creatinine 0.42 Objective - Vital Signs Vital signs: Vital Signs Temp 98.7 F 03/17/24 02:00 Pulse 87 03/17/24 02:00 Resp 16 03/17/24 02:00 BP 129/87 03/17/24 02:00 Pulse Ox 97 03/17/24 02:00 FiO2 Intake & Output 03/16/24 03/17/24 03/17/24 18:59 06:59 18:59 Output Total 300 Balance -300 Weight 92.986 kg Output: Urine 300 Other: Voiding Method Bedside Commode Bedside Commode Diaper Diaper # Voids 1 0 # Bowel Movements 1 0 - Exam GENERAL DESCRIPTION: An elderly female lying in bed in no distress RESPIRATORY SYSTEM: Unlabored breathing , decreased breath sounds at bases HEART: S1 S2 regular rate and rhythm , ABDOMEN: Soft , no tenderness EXTREMITIES: No edema feet - Labs CBC & Chem 7: 03/16/24 07:19 03/15/24 17:05 Labs: Abnormal Lab Results - Last 24 Hours (Table) 03/16/24 Range/Units 07:19 RBC 3.22 L (4.10-5.20) X 10*6/uL Hgb 9.4 L (12.0-15.0) g/dL Hct 29.4 L (37.2-46.3) % Assessment and Plan (1) C. difficile colitis Current Visit: No Status: Acute Code(s): A04.72 - ENTEROCOLITIS D/T CLOSTRIDIUM DIFFICILE, NOT SPCF RECUR SNOMED Code(s): 956844366 Plan: 1patient presented to hospital with intractable diarrhea in this patient who did have a history of severe C. difficile colitis about 4 weeks ago that responded to Dificid now with features of sepsis in this patient with a fever elevated white count source likely recurrent severe C. difficile colitis 2-patient white count has normalized diarrhea is slowing down to continue with the Dificid question increasing her probiotic and yogurt intake Dictation was produced using [employer] dictation software. please excuse any grammatical, word or spelling errors. Time with Patient: Less than 30
[2024-03-18 09:37] LABS: HCT 31.6 % (37.2-46.3); MCH 28.7 pg (27.0-32.0); MCHC 31.6 g/dL (32.0-37.0); MCV 90.8 FL (80.0-97.0); Mean Platelet Volume 10.2 FL (9.5-12.2); NRBC Per 100 WBC 0 X 10*3/uL (0.00-0.01); Platelet Count 287 X 10*3/uL (140-440); RBC 3.48 X 10*6/uL (4.10-5.20); RDW 14.2 % (11.5-14.5)
[2024-03-18 10:43] LABS: ALT 9 U/L (8-44); AST 11 U/L (13-35); Albumin 2.9 g/dL (3.8-4.9); Albumin/Globulin Ratio 1.16 Ratio (1.60-3.17); Alkaline Phosphatase 85 U/L (41-126); BUN/Creat Ratio 15.78 Ratio (12.00-20.00); Blood Urea Nitrogen 14.2 mg/dL (9.0-27.0); Calcium 10.4 mg/dL (8.7-10.3); Carbon Dioxide 20.8 mmol/L (21.6-31.8); Chloride 108 mmol/L (96-109); Globulin 2.5 g/dL (1.6-3.3); Glucose 87 mg/dL (70-110); Potassium 4.2 mmol/L (3.5-5.5); Sodium 138 mmol/L (135-145); Total Bilirubin <0.2 mg/dL (0.3-1.2); Total Protein 5.4 g/dL (6.2-8.2)
--- NOTE | 2024-03-18 13:01 | P.PN ---
Subjective Progress Note Date: 03/18/24 74-year-old 89 office patient with active medical history of chronic anemia, obstructive sleep apnea, hypertension, hyperlipidemia, history of pulmonary embolism still on anticoagulation, generalized anxiety and depression, recurrent UTI, recurrent abdominal pain with recurrent diverticulitis who presented to the emergency department 4 weeks ago with severe abdominal pain with intractable nausea and vomiting with slight worsening diarrhea found to have abdominal discomfort with abdominal region area and found to have UTI with questionable diverticulitis. Patient developed to have worsening diarrhea and few days later found to have an aggressive type of C. difficile colitis did not respond to van comycin and Flagyl after being on it for almost a week. Patient was switched to Dificid and continue on it to complete total of 10 days and was sent at that time to [facility] the [facility] where was treated for entire course of her colitis and C. difficile. Apparently has become significantly better and they are going home. Last 3 days developed to have worsening symptoms with intractable nausea along with diarrhea with worsening dehydration become extremely weak not been able to ambulate and walk ended up coming to the emergency department at [facility] where was seen and evaluated Found to have elevation of 5.8 with slightly tachycardia mildly elevated blood pressure. Laboratory value shows hemoglobin of 10.7 with white blood cell 16.1 hematocrit 32.3 platelet count of 199 electrolytes showed significant hypokalemia at 3.1. Which was started on repl acement therapy. Patient apparently had completed her C. difficile treatment with Dificid but this is a relapse to treatment. Patient is quite bit high dehydrated and symptomatic she will be admitted to the hospital see infectious disease see this consult be done based on the resolved probably will go back on Dificid again not a clear if this is an IV extended or finish 10 more days of Dificid followed by vancomycin orally for 2 more weeks. 03/13/2024: She is lying in bed still having significant abdominal pain and discomfort had few episodes of diarrhea through the night, her C. difficile back positive this morning. Will continue current management for now by initiating Dificid for the next 10 days past the time probably should be on prophylaxis with vancomycin suspension for total of 1 month. Waiting for infectious disease to make the final conclusion. With recurrent abdominal pain discomfort along with the severity of her symptoms may be another CAT scan of the abdomen pelvis would not be such a bad idea to do. Also patient is still having slight fever and this is can be C. difficile colitis with mild inflammation or infection can be more aggressive than expected might require further attention cannot wait till the patient is feeling better to do another colonoscopy to exclude any other possibility for what she might have in her abdominal area that was a plan originally after the last episode but she relapsed with the C. difficile now require treatment and probably have to wait least 2 months before able to go for colonoscopy. 03/14/2024: Patient diarrhea slightly better, her abdominal pain has improved compared to yesterday, C. difficile was positive also her UA was positive at this point. She is seen infectious disease and continue Dificid at this point with Questran no antispastic medication can be used. And no antibiotic will be used for UTI. Initial admission patient was acting septic with C. difficile which is weird but with a relapse of C. difficile this can happen her white blood cell was significantly elevated waiting for lab from this morning. She is in less distress Today compared to yesterday and day before. The longer-term plan for this is to figure out a way to manage patient and probably keep her on longer term taper dose of vancomycin suspension after the Dificid is done and whether can benefit from doing a stool transplant or not this to be determined specially if she relapsed again. 03/15/2024: Patient is slightly bit more comfortable today having less abdominal pain discomfort, had less diarrhea than before and according to her nurse had 1 episode through the night only and 1 this morning. I had long discussion with the yesterday night explained to him the prognosis, not going on with the patient and been told the chance of C. difficile relapse is quite bit high even if the treatment completed at this time and had an extension with oral vancomycin afterward for period of time she could have this relapse again. And told him She had an episode if by choice decided to take her to one of the large center like [facility] or [place] if you feel more comfortable to have this winded relapse manage at larger center would be okay. Laboratory value still showing sodium 135 potassium 3.0 despite replacement therapy magnesium down to 1.2 as well continue replacing potassium magnesium almost on daily basis. The plan as soon as the diarrhea slowed down to be able to send patient home on Dificid which, the plan with infectious disease for possible extended treatment. 03/16/2024: She is feeling better with significant decrease in abdominal pain, continue to have severe diarrhea since midnight for this morning had 7 episodes so far. He is responding well to Dificid and her white blood cell is down definitely still seen infectious disease who believe the benefit of Questran and Dificid for now no other management needed but when she is discharged she need to complete total of 10 days of Dificid and if this is to fail down the road she might require stool transplant as the best next steps. The patient and her do not feel strong to go home today 1 or 2 delayed a t least another 24 hours see if her diarrhea improves that she is able to help herself. Also she refused to consider the idea of going to rehab or SNF anywhere. 03/17. Patient seen and examined. Dr. Quan took over care. Patient still having diarrhea. Sitting upright in the chair. Denies any lightheadedness or dizziness. Patient has good appetite 03/18. Patient seen and examined. Patient's white count increased this morning to 14, Hemoglobin 10, platelet count 287. Patient continues to be afebrile, still having diarrhea but patient states improved from before REVIEW OF SYSTEMS: CONSTITUTIONAL: No fever, no malaise,. CARDIOVASCULAR: No chest pain, no palpitations, no syncope. PULMONARY: No shortness of breath, no cough, GASTROINTESTINAL: No diarrhea, no nausea, no vomiting, no abdominal pain. NEUROLOGICAL: No headaches, no weakness, PHYSICAL EXAMINATION: GENERAL: The patient is alert and oriented x3, not in any acute distress. Well developed, well nourished. HEENT: Pupils are round and equally reacting to light. EOMI. No scleral icterus. No conjunctival pallor. Normocephalic, atraumatic. No pharyngeal erythema. No thyromegaly. CARDIOVASCULAR: S1 and S2 present. No murmurs, rubs, or gallops. PULMONARY: Chest is clear to auscultation, no wheezing or crackles. ABDOMEN: Soft, nontender, nondistended, normoactive bowel sounds. No palpable organomegaly. MUSCULOSKELETAL: No joint swelling or deformity. EXTREMITIES: No cyanosis, clubbing, or pedal edema. NEUROLOGICAL: Gross neurological examination did not reveal any focal deficits. SKIN: No rashes. Assessment and plan _Acute C. difficile sepsis _Recurrent severe C. difficile colitis _Recurrent abdominal pain Monitor vital signs Continue Dificid Continue lactobacillus and Questran ID following _Electrolyte imbalance: Monitor BMP _Urinary tract infection: No treatment will be provided this point patient's symptoms are mostly C. difficile and probably the specimen is more contaminated that is why it is positive but no antibiotic will be used for it. _Mild anemia: CBC be done daily watch for any recurrent bleeding. _History of pulmonary embolism: Continue Eliquis 5 mg twice a day. _Chronic anemia: Stable on iron supplement with ferrous sulfate 325 mg a day still on vitamin B12 supplement. _Gout: Continue allopurinol 100 mg daily. _Hypertension: Continue lisinopril _Obstructive sleep apnea: Continue CPAP on regular basis. _Neuropathy and chronic pain syndrome: Was on Lyrica still using hydrocodone on as-needed basis. _Chronic depression: Continue Wellbutrin SR 12 mg twice a day Labs and medication were reviewed.. Continue same treatment. Continue with symptomatic treatment. Resume home medication. Monitor labs and vitals. DVT and GI prophylaxis. Further recommendations as per clinical course of the patient Dictation was produced using [employer] dictation software. please excuse any grammatical, word or spelling errors. Objective - Vital Signs Vital signs: Vital Signs Temp 98.6 F 03/18/24 07:41 Pulse 90 03/18/24 07:41 Resp 17 03/18/24 07:41 BP 122/72 03/18/24 07:41 Pulse Ox 95 03/18/24 07:41 FiO2 Intake & Output 03/17/24 03/18/24 03/18/24 18:59 06:59 18:59 Other: Voiding Method Bedside Commode Bedside Commode Bedside Commode Diaper Diaper Diaper # Voids 1 2 # Bowel Movements 2 - Labs CBC & Chem 7: 03/18/24 06:37 03/18/24 06:37 Labs: Abnormal Lab Results - Last 24 Hours (Table) 03/18/24 Range/Units 06:37 WBC 14.00 H (4.50-10.00) X 10*3/uL RBC 3.48 L (4.10-5.20) X 10*6/uL Hgb 10.0 L (12.0-15.0) g/dL Hct 31.6 L (37.2-46.3) % MCHC 31.6 L (32.0-37.0) g/dL
[2024-03-18] MEDS: ZINC OXIDE PASTE (Z-GUARD) 1 APPLIC TOPICAL PRN (22:57)
[2024-03-19 09:59] LABS: ALT 10 U/L (4-34); AST 15 U/L (14-36); African American GFR (CKD) >90 (>60 ml/min/1.73 sqM); Albumin 2.4 g/dL (3.5-5.0); Albumin/Globulin Ratio 0.9; Alkaline Phosphatase 90 U/L (38-126); Anion Gap 5 mmol/L; Blood Urea Nitrogen 10 mg/dL (7-17); Calcium 10.5 mg/dL (8.4-10.2); Carbon Dioxide 25 mmol/L (22-30); Chloride 109 mmol/L (98-107); Globulin 2.8 g/dL; Glucose 77 mg/dL (74-99); Non-African American GFR(CKD) 84 (>60 ml/min/1.73 sqM); Potassium 4.1 mmol/L (3.5-5.1); Sodium 139 mmol/L (137-145); Total Bilirubin 0.3 mg/dL (0.2-1.3); Total Protein 5.2 g/dL (6.3-8.2)
[2024-03-19 10:27] LABS: Basophils % (A) 0 %; Eosinophils # (A) 0.1 k/uL (0-0.7); Eosinophils % (A) 1 %; HCT 31.3 % (34.0-46.0); HGB 9.9 gm/dL (11.4-16.0); Hypochromasia Slight; Lymphocytes # (A) 1.9 k/uL (1.0-4.8); Lymphocytes % (A) 20 %; MCH 29.4 pg (25.0-35.0); MCHC 31.6 g/dL (31.0-37.0); Mean Platelet Volume 9.1; Monocytes # (A) 1.9 k/uL (0-1.0); Monocytes % (A) 20 %; Neutrophils # (A) 5.3 k/uL (1.3-7.7); Neutrophils % (A) 55 %; Platelet Count 294 k/uL (150-450); RBC 3.36 m/uL (3.80-5.40); RDW 14.3 % (11.5-15.5); WBC 9.5 k/uL (3.8-10.6)
--- NOTE | 2024-03-19 14:28 | P.PN ---
Subjective Progress Note Date: 03/19/24 74-year-old 89 office patient with active medical history of chronic anemia, obstructive sleep apnea, hypertension, hyperlipidemia, history of pulmonary embolism still on anticoagulation, generalized anxiety and depression, recurrent UTI, recurrent abdominal pain with recurrent diverticulitis who presented to the emergency department 4 weeks ago with severe abdominal pain with intractable nausea and vomiting with slight worsening diarrhea found to have abdominal discomfort with abdominal region area and found to have UTI with questionable diverticulitis. Patient developed to have worsening diarrhea and few days later found to have an aggressive type of C. difficile colitis did not respond to van comycin and Flagyl after being on it for almost a week. Patient was switched to Dificid and continue on it to complete total of 10 days and was sent at that time to [facility] on the [facility] where was treated for entire course of her colitis and C. difficile. Apparently has become significantly better and they are going home. Last 3 days developed to have worsening symptoms with intractable nausea along with diarrhea with worsening dehydration become extremely weak not been able to ambulate and walk ended up coming to the emergency department at [facility] where was seen and evaluated Found to have elevation of 5.8 with slightly tachycardia mildly elevated blood pressure. Laboratory value shows hemoglobin of 10.7 with white blood cell 16.1 hematocrit 32.3 platelet count of 199 electrolytes showed significant hypokalemia at 3.1. Which was started on repl acement therapy. Patient apparently had completed her C. difficile treatment with Dificid but this is a relapse to treatment. Patient is quite bit high dehydrated and symptomatic she will be admitted to the hospital see infectious disease see this consult be done based on the resolved probably will go back on Dificid again not a clear if this is an IV extended or finish 10 more days of Dificid followed by vancomycin orally for 2 more weeks. 03/13/2024: She is lying in bed still having significant abdominal pain and discomfort had few episodes of diarrhea through the night, her C. difficile back positive this morning. Will continue current management for now by initiating Dificid for the next 10 days past the time probably should be on prophylaxis with vancomycin suspension for total of 1 month. Waiting for infectious disease to make the final conclusion. With recurrent abdominal pain discomfort along with the severity of her symptoms may be another CAT scan of the abdomen pelvis would not be such a bad idea to do. Also patient is still having slight fever and this is can be C. difficile colitis with mild inflammation or infection can be more aggressive than expected might require further attention cannot wait till the patient is feeling better to do another colonoscopy to exclude any other possibility for what she might have in her abdominal area that was a plan originally after the last episode but she relapsed with the C. difficile now require treatment and probably have to wait least 2 months before able to go for colonoscopy. 03/14/2024: Patient diarrhea slightly better, her abdominal pain has improved compared to yesterday, C. difficile was positive also her UA was positive at this point. She is seen infectious disease and continue Dificid at this point with Questran no antispastic medication can be used. And no antibiotic will be used for UTI. Initial admission patient was acting septic with C. difficile which is weird but with a relapse of C. difficile this can happen her white blood cell was significantly elevated waiting for lab from this morning. She is in less distress Today compared to yesterday and day before. The longer-term plan for this is to figure out a way to manage patient and probably keep her on longer term taper dose of vancomycin suspension after the Dificid is done and whether can benefit from doing a stool transplant or not this to be determined specially if she relapsed again. 03/15/2024: Patient is slightly bit more comfortable today having less abdominal pain discomfort, had less diarrhea than before and according to her nurse had 1 episode through the night only and 1 this morning. I had long discussion with the yesterday night explained to him the prognosis, not going on with the patient and been told the chance of C. difficile relapse is quite bit high even if the treatment completed at this time and had an extension with oral vancomycin afterward for period of time she could have this relapse again. And told him She had an episode if by choice decided to take her to one of the large center like [facility] or [place] if you feel more comfortable to have this winded relapse manage at larger center would be okay. Laboratory value still showing sodium 135 potassium 3.0 despite replacement therapy magnesium down to 1.2 as well continue replacing potassium magnesium almost on daily basis. The plan as soon as the diarrhea slowed down to be able to send patient home on Dificid which, the plan with infectious disease for possible extended treatment. 03/16/2024: She is feeling better with significant decrease in abdominal pain, continue to have severe diarrhea since midnight for this morning had 7 episodes so far. He is responding well to Dificid and her white blood cell is down definitely still seen infectious disease who believe the benefit of Questran and Dificid for now no other management needed but when she is discharged she need to complete total of 10 days of Dificid and if this is to fail down the road she might require stool transplant as the best next steps. The patient and her do not feel strong to go home today 1 or 2 delayed a t least another 24 hours see if her diarrhea improves that she is able to help herself. Also she refused to consider the idea of going to rehab or SNF anywhere. 03/17. Patient seen and examined. Dr. Quan took over care. Patient still having diarrhea. Sitting upright in the chair. Denies any lightheadedness or dizziness. Patient has good appetite 03/18. Patient seen and examined. Patient's white count increased this morning to 14, Hemoglobin 10, platelet count 287. Patient continues to be afebrile, still having diarrhea but patient states improved from before 03/19. Patient seen and examined. Sitting upright in the bed. States her diarrhea has improved compared to yesterday. Leukocytosis is also resolved. REVIEW OF SYSTEMS: CONSTITUTIONAL: No fever, no malaise,. CARDIOVASCULAR: No chest pain, no palpitations, no syncope. PULMONARY: No shortness of breath, no cough, GASTROINTESTINAL: No diarrhea, no nausea, no vomiting, no abdominal pain. NEUROLOGICAL: No headaches, no weakness, PHYSICAL EXAMINATION: GENERAL: The patient is alert and oriented x3, not in any acute distress. Well developed, well nourished. HEENT: Pupils are round and equally reacting to light. EOMI. No scleral icterus. No conjunctival pallor. Normocephalic, atraumatic. No pharyngeal erythema. No thyromegaly. CARDIOVASCULAR: S1 and S2 present. No murmurs, rubs, or gallops. PULMONARY: Chest is clear to auscultation, no wheezing or crackles. ABDOMEN: Soft, nontender, nondistended, normoactive bowel sounds. No palpable organomegaly. MUSCULOSKELETAL: No joint swelling or deformity. EXTREMITIES: No cyanosis, clubbing, or pedal edema. NEUROLOGICAL: Gross neurological examination did not reveal any focal deficits. SKIN: No rashes. Assessment and plan _Acute C. difficile sepsis _Recurrent severe C. difficile colitis _Recurrent abdominal pain Monitor vital signs Continue Dificid Continue lactobacillus and Questran ID following _Electrolyte imbalance: Monitor BMP _Urinary tract infection: No treatment will be provided this point patient's symptoms are mostly C. difficile and probably the specimen is more contaminated that is why it is positive but no antibiotic will be used for it. _Mild anemia: CBC be done daily watch for any recurrent bleeding. _History of pulmonary embolism: Continue Eliquis 5 mg twice a day. _Chronic anemia: Stable on iron supplement with ferrous sulfate 325 mg a day still on vitamin B12 supplement. _Gout: Continue allopurinol 100 mg daily. _Hypertension: Continue lisinopril _Obstructive sleep apnea: Continue CPAP on regular basis. _Neuropathy and chronic pain syndrome: Was on Lyrica still using hydrocodone on as-needed basis. _Chronic depression: Continue Wellbutrin SR 12 mg twice a day Labs and medication were reviewed.. Continue same treatment. Continue with symptomatic treatment. Resume home medication. Monitor labs and vitals. DVT and GI prophylaxis. Further recommendations as per clinical course of the patient Dictation was produced using [employer] dictation software. please excuse any grammatical, word or spelling errors. Objective - Vital Signs Vital signs: Vital Signs Temp 97.7 F 03/19/24 12:59 Pulse 79 03/19/24 12:59 Resp 20 03/19/24 12:59 BP 133/84 03/19/24 12:59 Pulse Ox 94 L 03/19/24 12:59 FiO2 Intake & Output 03/18/24 03/19/24 03/19/24 18:59 06:59 18:59 Other: Voiding Method Bedside Commode Bedside Commode Diaper Diaper # Voids 1 1 1 # Bowel Movements 1 1 1 - Labs CBC & Chem 7: 03/19/24 07:24 03/19/24 07:24 Labs: Abnormal Lab Results - Last 24 Hours (Table) 03/19/24 03/19/24 Range/Units 07:24 07:24 RBC 3.36 L (3.80-5.40) m/uL Hgb 9.9 L (11.4-16.0) gm/dL Hct 31.3 L (34.0-46.0) % Monocytes # 1.9 H (0-1.0) k/uL Chloride 109 H (98-107) mmol/L Calcium 10.5 H (8.4-10.2) mg/dL Total Protein 5.2 L (6.3-8.2) g/dL Albumin 2.4 L (3.5-5.0) g/dL
--- NOTE | 2024-03-19 17:06 | P.PN ---
Subjective Progress Note Date: 03/18/24 Principal diagnosis: Reason for follow-up recurrent C. difficile colitis Patient is a 74-year-old female with multiple comorbidities including hypertension hyperlipidemia obstructive sleep apnea PE anxiety depression recently admitted to the hospital with severe C. difficile colitis for the patient recently completed a course of Dificid and now presenting back to the hospital with worsening diarrhea and fever has been diagnosed with recurrent C. difficile colitis On today's evaluation that is 03/18/2024, the patient continues to be afebrile, the patient is on room air and breathing comfortably, the Pt denies having any chest pain or cough, the patient denies having any worsening abdominal pain no vomiting and diarrhea has slowed down per the nursing staff Patient white count is slightly up to 40,000 today creatinine 0.9 Objective - Vital Signs Vital signs: Vital Signs Temp 98.6 F 03/18/24 07:41 Pulse 90 03/18/24 07:41 Resp 17 03/18/24 07:41 BP 122/72 03/18/24 07:41 Pulse Ox 95 03/18/24 07:41 FiO2 Intake & Output 03/17/24 03/18/24 03/18/24 18:59 06:59 18:59 Other: Voiding Method Bedside Commode Bedside Commode Diaper Diaper # Voids 1 2 # Bowel Movements 2 - Exam GENERAL DESCRIPTION: An elderly female lying in bed in no distress RESPIRATORY SYSTEM: Unlabored breathing , decreased breath sounds at bases HEART: S1 S2 regular rate and rhythm , ABDOMEN: Soft , no tenderness EXTREMITIES: No edema feet - Labs CBC & Chem 7: 03/19/24 07:24 03/19/24 07:24 Assessment and Plan (1) C. difficile colitis Current Visit: No Status: Acute Code(s): A04.72 - ENTEROCOLITIS D/T CLOSTRIDIUM DIFFICILE, NOT SPCF RECUR SNOMED Code(s): 901847579 Plan: 1patient presented to hospital with intractable diarrhea in this patient who did have a history of severe C. difficile colitis about 4 weeks ago that responded to Dificid now with features of sepsis in this patient with a fever elevated white count source likely recurrent severe C. difficile colitis 2-patient noticed to have slight worsening of the white count to monitor closely for now continue with the Dificid along with Questran and monitor clinical course closely Dictation was produced using dragon dictation software. please excuse any grammatical, word or spelling errors. Time with Patient: Less than 30
--- NOTE | 2024-03-19 17:07 | P.PN ---
Subjective Progress Note Date: 03/19/24 Principal diagnosis: Reason for follow-up recurrent C. difficile colitis Patient is a 74-year-old female with multiple comorbidities including hypertension hyperlipidemia obstructive sleep apnea PE anxiety depression recently admitted to the hospital with severe C. difficile colitis for the patient recently completed a course of Dificid and now presenting back to the hospital with worsening diarrhea and fever has been diagnosed with recurrent C. difficile colitis On today's evaluation that is 03/19/2024, Patient is afebrile patient is currently on room air and denies having any shortness of breath, the patient denies any chest pain or cough, the patient denies any nausea vomiting patient abdominal pain has decreased in intensity and did have about 3 episodes today. Patient white normalized to 9.5 creatinine 0.70 Objective - Vital Signs Vital signs: Vital Signs Temp 97.7 F 03/19/24 12:59 Pulse 79 03/19/24 12:59 Resp 20 03/19/24 12:59 BP 133/84 03/19/24 12:59 Pulse Ox 94 L 03/19/24 12:59 FiO2 Intake & Output 03/18/24 03/19/24 03/19/24 18:59 06:59 18:59 Other: Voiding Method Bedside Commode Bedside Commode Diaper Diaper # Voids 1 1 1 # Bowel Movements 1 1 1 - Exam GENERAL DESCRIPTION: An elderly female lying in bed in no distress RESPIRATORY SYSTEM: Unlabored breathing , decreased breath sounds at bases HEART: S1 S2 regular rate and rhythm , ABDOMEN: Soft , no tenderness EXTREMITIES: No edema feet - Labs CBC & Chem 7: 03/19/24 07:24 03/19/24 07:24 Labs: Abnormal Lab Results - Last 24 Hours (Table) 03/19/24 03/19/24 Range/Units 07:24 07:24 RBC 3.36 L (3.80-5.40) m/uL Hgb 9.9 L (11.4-16.0) gm/dL Hct 31.3 L (34.0-46.0) % Monocytes # 1.9 H (0-1.0) k/uL Chloride 109 H (98-107) mmol/L Calcium 10.5 H (8.4-10.2) mg/dL Total Protein 5.2 L (6.3-8.2) g/dL Albumin 2.4 L (3.5-5.0) g/dL Assessment and Plan (1) C. difficile colitis Current Visit: No Status: Acute Code(s): A04.72 - ENTEROCOLITIS D/T CLOSTRIDIUM DIFFICILE, NOT SPCF RECUR SNOMED Code(s): 693202285 Plan: 1patient presented to hospital with intractable diarrhea in this patient who did have a history of severe C. difficile colitis about 4 weeks ago that responded to Dificid now with features of sepsis in this patient with a fever elevated white count source likely recurrent severe C. difficile colitis 2-patient did have normalization of the white count diarrhea has slowed down we will keep the patient on Dificid and Questran encouraged to increase her yogurt intake and will try to arrange for the outpatient stool transplant at [facility] hopefully at the end of this episode of C. difficile colitis to prevent recurrent episodes in the future detail discussion with at the bedside Dictation was produced using [employer] dictation software. please excuse any grammatical, word or spelling errors. Time with Patient: Less than 30
[2024-03-19 20:48] VITALS: RESP 16
--- NOTE | 2024-03-20 13:10 | P.DS ---
Providers Date of admission: 03/12/24 21:01 Expected date of discharge: 03/20/24 Attending physician: Luis Adames Consults: 03/12/24 22:19 Consult Physician Routine Consulting Provider: Amber Drummond Consult Reason/Comments: C diff with Relapse Do you want consulting provider notified?: Yes Primary care physician: Olga [facility] Course: Discharge diagnoses; _Acute C. difficile sepsis _Recurrent severe C. difficile colitis _Recurrent abdominal pain Monitor vital signs Continue Dificid Continue lactobacillus and Questran ID following 03/20. ID recommended discharging patient on fidaxomicin for 10 more days. _Electrolyte imbalance: Monitor BMP _Urinary tract infection: No treatment will be provided this point patient's symptoms are mostly C. difficile and probably the specimen is more contaminated that is why it is positive but no antibiotic will be used for it. _Mild anemia: Outpatient follow with PCP _History of pulmonary embolism: Continue Eliquis _Chronic anemia: Stable on iron supplement with ferrous sulfate 325 mg a day still on vitamin B12 supplement. _Gout: Continue allopurinol 100 mg daily. _Hypertension: Continue lisinopril _Obstructive sleep apnea: Continue CPAP on regular basis. _Neuropathy and chronic pain syndrome: Was on Lyrica still using hydrocodone on as-needed basis. _Chronic depression: Continue Wellbutrin SR 12 mg twice a day Hospital course; 74-year-old 104 office patient with active medical history of chronic anemia, obstructive sleep apnea, hypertension, hyperlipidemia, history of pulmonary embolism still on anticoagulation, generalized anxiety and depression, recurrent UTI, recurrent abdominal pain with recurrent diverticulitis who presented to the emergency department 4 weeks ago with severe abdominal pain with intractable nausea and vomiting with slight worsening diarrhea found to have abdominal discomfort with abdominal region area and found to have UTI with questionable diverticulitis. Patient developed to have worsening diarrhea and few days later found to have an aggressive type of C. difficile colitis did not respond to vancomycin and Flagyl after being on it for almost a week. Patient was switched to Dificid and continue on it to complete total of 10 days and was sent at that time to [facility] on the [facility] where was treated for entire co urse of her colitis and C. difficile. Apparently has become significantly better and they are going home. Last 3 days developed to have worsening symptoms with intractable nausea along with diarrhea with worsening dehydration become extremely weak not been able to ambulate and walk ended up coming to the emergency department at [facility] where was seen and evaluated Found to have elevation of 5.8 with slightly tachycardia mildly elevated blood pressure. Laboratory value shows hemoglobin of 10.7 with white blood cell 16.1 hematocrit 32.3 platelet count of 199 electrolytes showed significant hypokalemia at 3.1. Which was started on replacement therapy. Patient apparently had completed her C. difficile treatment with Dificid but this is a relapse to treatment. Patient is quite bit high dehydrated and symptomatic she will be admitted to the hospital see infectious disease see this consult be done based on the resolved probably will go back on Dificid again not a clear if this is an IV extended or finish 10 more days of Dificid followed by vancomycin orally for 2 more weeks. 03/13/2024: She is lying in bed still having significant abdominal pain and discomfort had few episodes of diarrhea through the night, her C. difficile back positive this morning. Will continue current management for now by initiating Dificid for the next 10 days past the time probably should be on prophylaxis with vancomycin suspension for total of 1 month. Waiting for infectious disease to make the final conclusion. With recurrent abdominal pain discomfort along with the severity of her symptoms may be another CAT scan of the abdomen pelvis would not be such a bad idea to do. Also patient is still having slight fever and this is can be C. difficile col itis with mild inflammation or infection can be more aggressive than expected might require further attention cannot wait till the patient is feeling better to do another colonoscopy to exclude any other possibility for what she might have in her abdominal area that was a plan originally after the last episode but she relapsed with the C. difficile now require treatment and probably have to wait least 2 months before able to go for colonoscopy. 03/14/2024: Patient diarrhea slightly better, her abdominal pain has improved compared to yesterday, C. difficile was positive also her UA was positive at this point. She is seen infectious disease and continue Dificid at this point with Questran no antispastic medication can be used. And no antibiotic will be used for UTI. Initial admission patient was acting septic with C. difficile which is weird but with a relapse of C. difficile this can happen her white blood cell was significantly elevated waiting for lab from this morning. She is in less distress Today compared to yesterday and day before. The longer-term plan for this is to figure out a way to manage patient and probably keep her on longer term taper dose of vancomycin suspension after the Dificid is done and whether can benefit from doing a stool transplant or not this to be determined specially if she relapsed again. 03/15/2024: Patient is slightly bit more comfortable today having less abdominal pain discomfort, had less diarrhea than before and according to her nurse had 1 episode through the night only and 1 this morning. I had long discussion with the yesterday night explained to him the prognosis, not going on with the patient and been told the chance of C. difficile relapse is quite bit high even if the treatment completed at this time and had an extension with oral vancomycin afterward for period of time she could have this relapse again. And told him She had an episode if by choice decided to take her to one of the large center like [facility] or [place] if you feel more comfortable to have this winded relapse manage at larger center would be okay. Laboratory value still showing sodium 135 potassium 3.0 despite replacement therapy magnesium down to 1.2 as well continue replacing potassium magnesium almost on daily basis. The plan as soon as the diarrhea slowed down to be able to send patient home on Dificid which, the plan with infectious disease for possible extended treatment. 03/16/2024: She is feeling better with significant decrease in abdominal pain, continue to have severe diarrhea since midnight for this morning had 7 episodes so far. He is responding well to Dificid and her white blood cell is down definitely still seen infectious disease who believe the benefit of Questran and Dificid for now no other management needed but when she is discharged she need to complete total of 10 days of Dificid and if this is to fail down the road she might require stool transplant as the best next steps. The patient and her do not feel strong to go home today 1 or 2 delayed at least another 24 hours see if her diarrhea improves that she is able to help herself. Also she refused to consider the idea of going to rehab or SNF anywhere. 03/17. Patient seen and examined. Dr. Quan took over care. Patient still having diarrhea. Sitting upright in the chair. Denies any lightheadedness or dizziness. Patient has good appetite 03/18. Patient seen and examined. Patient's white count increased this morning to 14, Hemoglobin 10, platelet count 287. Patient continues to be afebrile, still having diarrhea but patient states improved from before 03/19. Patient seen and examined. Sitting upright in the bed. States her diarrhea has improved compared to yesterday. Leukocytosis is also resolved. 03/20. ID recommended discharging patient on fidaxomicin for 10 more days. PHYSICAL EXAMINATION: GENERAL: The patient is alert and oriented x3, not in any acute distress. Well developed, well nourished. HEENT: Pupils are round and equally reacting to light. EOMI. No scleral icterus. No conjunctival pallor. Normocephalic, atraumatic. No pharyngeal erythema. No thyromegaly. CARDIOVASCULAR: S1 and S2 present. No murmurs, rubs, or gallops. PULMONARY: Chest is clear to auscultation, no wheezing or crackles. ABDOMEN: Soft, nontender, nondistended, normoactive bowel sounds. No palpable organomegaly. MUSCULOSKELETAL: No joint swelling or deformity. EXTREMITIES: No cyanosis, clubbing, or pedal edema. NEUROLOGICAL: Gross neurological examination did not reveal any focal deficits. SKIN: No rashes. Dictation was produced using [employer] dictation software. please excuse any grammatical, word or spelling errors. Plan - Discharge Summary Discharge Rx Participant: Yes New Discharge Prescriptions: New Fidaxomicin [Dificid] 200 mg PO BID 10 Days #20 tablet Cholestyramine (with Sugar) [Questran Packet] 4 gm PO BID@1200,1800 10 Days #20 packet Continue Apixaban [Eliquis] 5 mg PO BID allopurinoL [Zyloprim] 100 mg PO DAILY lisinopriL [Zestril] 10 mg PO DAILY Magnesium Citrate 250mg Gummy 250 mg PO DAILY Furosemide [Lasix] 40 mg PO DAILY Midodrine [ProAmatine] 5 mg PO TID-W/MEALS buPROPion HCL [buPROPion HCL SR] 200 mg PO BID Ferrous Sulfate [Iron (65 MG Elemental)] 325 mg PO DAILY Cyanocobalamin (Vitamin B-12) [Vitamin B-12] 1,000 mcg PO DAILY Cholecalciferol [Vitamin D3 (125 Mcg = 5000 Iu)] 125 mcg PO DAILY Venlafaxine HCl [Effexor XR] 75 mg PO DAILY Triamcinolone 0.1% Cream [Kenalog 0.1% Cream] 1 applic TOPICAL BID PRN PRN Reason: Rash Pravastatin Sodium [Pravachol] 40 mg PO HS Lutein 10 mg PO DAILY Multivitamins, Thera [Multivitamin (formulary)] 1 tab PO DAILY clonazePAM [KlonoPIN] 0.5 mg PO HS #7 tab Pregabalin [Lyrica] 75 mg PO BID 3 Days #6 cap Potassium Chloride [Klor-Con 10 ER] 20 meq PO BID Lactobacillus Acidophilus [Acidophilus Probiotic] 1 cap PO BID 10 Days #20 cap Discontinued Sennosides [Senna] 17.2 mg PO BID PRN PRN Reason: Constipation Discharge Medication List Apixaban [Eliquis] 5 mg PO BID 07/29/20 [History] allopurinoL [Zyloprim] 100 mg PO DAILY 07/29/20 [History] buPROPion HCL [buPROPion HCL SR] 200 mg PO BID 09/18/21 [History] Cyanocobalamin (Vitamin B-12) [Vitamin B-12] 1,000 mcg PO DAILY 11/18/22 [History] Ferrous Sulfate [Iron (65 MG Elemental)] 325 mg PO DAILY 11/18/22 [History] Cholecalciferol [Vitamin D3 (125 Mcg = 5000 Iu)] 125 mcg PO DAILY 01/08/23 [History] Lutein 10 mg PO DAILY 02/14/24 [History] Multivitamins, Thera [Multivitamin (formulary)] 1 tab PO DAILY 02/14/24 [History] Pravastatin Sodium [Pravachol] 40 mg PO HS 02/14/24 [History] Triamcinolone 0.1% Cream [Kenalog 0.1% Cream] 1 applic TOPICAL BID PRN 02/14/24 [History] Venlafaxine HCl [Effexor XR] 75 mg PO DAILY 02/14/24 [History] lisinopriL [Zestril] 10 mg PO DAILY 02/14/24 [History] Pregabalin [Lyrica] 75 mg PO BID 3 Days #6 cap 02/24/24 [Rx] clonazePAM [KlonoPIN] 0.5 mg PO HS #7 tab 02/24/24 [Rx] Furosemide [Lasix] 40 mg PO DAILY 03/12/24 [History] Magnesium Citrate 250mg Gummy 250 mg PO DAILY 03/12/24 [History] Midodrine [ProAmatine] 5 mg PO TID-W/MEALS 03/12/24 [History] Potassium Chloride [Klor-Con 10 ER] 20 meq PO BID 03/12/24 [History] Cholestyramine (with Sugar) [Questran Packet] 4 gm PO BID@1200,1800 10 Days #20 packet 03/20/24 [Rx] Fidaxomicin [Dificid] 200 mg PO BID 10 Days #20 tablet 03/20/24 [Rx] Lactobacillus Acidophilus [Acidophilus Probiotic] 1 cap PO BID 10 Days #20 cap 03/20/24 [Rx] Follow up Appointment(s)/Referral(s): Olga Andersen MD [Primary Care Provider] - 1-2 days [facility] [NON-STAFF] - 1 Week Amber Drummond MD [STAFF PHYSICIAN] - 1 Week Patient Instructions/Handouts: Vancomycin (By mouth), Fidaxomicin (By mouth), C. Diff (Clostridioides Difficile) Infection (DC)
[2024-03-20 13:43] VITALS: BP 123/79; PULSE 90; TEMP 98.5
--- NOTE | 2024-03-20 17:04 | P.PN ---
Subjective Progress Note Date: 03/20/24 Principal diagnosis: Reason for follow-up recurrent C. difficile colitis Patient is a 74-year-old female with multiple comorbidities including hypertension hyperlipidemia obstructive sleep apnea PE anxiety depression recently admitted to the hospital with severe C. difficile colitis for the patient recently completed a course of Dificid and now presenting back to the hospital with worsening diarrhea and fever has been diagnosed with recurrent C. difficile colitis On today's evaluation that is 03/20/2024, patient has been afebrile, patient is breathing comfortably and is currently on room air, patient denies having any significant cough no chest pain shortness of breath, patient denies nausea vomiting complaining of abdominal pain however did have a normal resolution of diarrhea with soft bowel movement as per discussion with the at the bedside. No new labs has been repeated today Objective - Vital Signs Vital signs: Vital Signs Temp 98 F 03/20/24 07:19 Pulse 88 03/20/24 07:19 Resp 16 03/20/24 07:19 BP 150/85 03/20/24 07:19 Pulse Ox 98 03/20/24 07:19 FiO2 Intake & Output 03/19/24 03/20/24 03/20/24 18:59 06:59 18:59 Intake Total 950 Balance 950 Intake: Oral 950 Other: Voiding Method Bedside Commode Diaper # Voids 1 1 # Bowel Movements 1 1 - Exam GENERAL DESCRIPTION: An elderly female lying in bed in no distress RESPIRATORY SYSTEM: Unlabored breathing , decreased breath sounds at bases HEART: S1 S2 regular rate and rhythm , ABDOMEN: Soft , no tenderness EXTREMITIES: No edema feet - Labs CBC & Chem 7: 03/19/24 07:24 03/19/24 07:24 Assessment and Plan (1) C. difficile colitis Status: Acute Code(s): A04.72 - ENTEROCOLITIS D/T CLOSTRIDIUM DIFFICILE, NOT SPCF RECUR SNOMED Code(s): 165803806 Plan: 1patient presented to hospital with intractable diarrhea in this patient who did have a history of severe C. difficile colitis about 4 weeks ago that responded to Dificid now with features of sepsis in this patient with a fever elevated white count source likely recurrent severe C. difficile colitis 2-patient did have normalization of the white count and did have improvement in her diarrhea as she having a soft bowel movement she will continue with oral Dificid for another 10 days because of her extensive C. difficile colitis and hopefully stool transplant at the end of this treatment to prevent recurrent episode discussed with the as well as admitting physician Dictation was produced using [employer] dictation software. please excuse any grammatical, word or spelling errors. Time with Patient: Less than 30
== END 2024-03-20 15:17 | disposition home or self-care (01) | DRG 872 ==
LOC: EC 18:33 → 4SSUR 21:01 → 5NMEDONC 03-13 12:28
PROVIDERS: ADMIT Internal Medicine Geriatric Medicine; ATTEND Internal Medicine Geriatric Medicine
DX: A41.4 Sepsis due to anaerobes (principal); A04.71 Enterocolitis due to Clostridium difficile, recurrent; D68.51 Activated protein C resistance; D64.9 Anemia, unspecified; E87.6 Hypokalemia; E86.0 Dehydration; E83.42 Hypomagnesemia; E78.5 Hyperlipidemia, unspecified; F32.A Depression, unspecified; F41.9 Anxiety disorder, unspecified; G47.33 Obstructive sleep apnea (adult) (pediatric); G89.4 Chronic pain syndrome; H91.90 Unspecified hearing loss, unspecified ear; I10 Essential (primary) hypertension; M10.9 Gout, unspecified; R65.20 Severe sepsis without septic shock; I95.9 Hypotension, unspecified; Z79.01 Long term (current) use of anticoagulants; Z79.899 Other long term (current) drug therapy; Z87.440 Personal history of urinary (tract) infections; Z86.711 Personal history of pulmonary embolism; Z86.16 Personal history of COVID-19; Z98.84 Bariatric surgery status; F41.1 Generalized anxiety disorder; K59.00 Constipation, unspecified; L30.9 Dermatitis, unspecified
CPT/HCPCS: 36415; 70450; 72125; 80053; 81001; 82150; 83605; 83690; 83735; 84132; 85025; 85027; 87324; 96360; 96361; 99285

== ENCOUNTER → 2024-05-08 | Outpatient (CLI) | payer MEDICARE, OTHER ==
[2024-05-08 19:44] LABS: Basophils # (A) 0.01 X 10*3/uL (0.00-0.10); Basophils % (A) 0.1 %; Eosinophils # (A) 0.05 X 10*3/uL (0.04-0.35); Eosinophils % (A) 0.7 %; HCT 36.5 % (37.2-46.3); HGB 11.3 g/dL (12.0-15.0); Lymphocytes # (A) 3.75 X 10*3/uL (0.90-5.00); Lymphocytes % (A) 52.8 %; MCH 27.8 pg (27.0-32.0); MCV 89.9 FL (80.0-97.0); Mean Platelet Volume 10.4 FL (9.5-12.2); Monocytes # (A) 1.32 X 10*3/uL (0.20-1.00); Monocytes % (A) 18.6 %; NRBC Per 100 WBC 0 X 10*3/uL (0.00-0.01); Neutrophils # (A) 1.91 X 10*3/uL (1.80-7.70); Platelet Count 280 X 10*3/uL (140-440); RBC 4.06 X 10*6/uL (4.10-5.20); RDW 14.7 % (11.5-14.5)
[2024-05-08 21:14] LABS: ALT 12 U/L (8-44); AST 17 U/L (13-35); Albumin 4.1 g/dL (3.8-4.9); Albumin/Globulin Ratio 1.41 Ratio (1.60-3.17); Alkaline Phosphatase 105 U/L (41-126); BUN/Creat Ratio 18.25 Ratio (12.00-20.00); Blood Urea Nitrogen 14.6 mg/dL (9.0-27.0); Calcium 11.1 mg/dL (8.7-10.3); Carbon Dioxide 25.1 mmol/L (21.6-31.8); Chloride 98 mmol/L (96-109); Chol/HDL Ratio 1.96 Ratio; Globulin 2.9 g/dL (1.6-3.3); Glucose 89 mg/dL (70-110); LDL Cholesterol,Calculated 66.1 mg/dL (0.0-131.0); Potassium 4.2 mmol/L (3.5-5.5); Sodium 138 mmol/L (135-145); Total Bilirubin 0.3 mg/dL (0.3-1.2)
--- NOTE | 2024-05-14 09:07 | MM ---
Reason for Exam: Screening (asymptomatic). Last mammogram was performed 1 year(s) and 3 month(s) ago. Patient History: Menarche at age 14. First Full-Term at age 26. Postmenopausal. Estrogen for 2 years, 1 month. Progesterone for 2 years, 1 month. Risk Values: Evita 5 year model risk: 1.8%. NCI Lifetime model risk: 3.6%. Prior Study Comparison: 12/19/2018 Bilateral Screening Mammogram, [facility]. 07/16/2020 Bilateral Screening Mammogram, [facility]. 02/11/2023 Bilateral MG screening mammo w CAD, [facility]. Tissue Density: There are scattered areas of fibroglandular density. Findings: Analyzed By CAD. There is no suspicious group of microcalcifications or new suspicious mass in either breast. Overall Assessment: Benign, BI-RAD 2 Management: Screening Mammogram of both breasts in 1 year. . Patient should continue monthly self-breast exams. A clinical breast exam by your physician is recommended on an annual basis. This exam should not preclude additional follow-up of suspicious palpable abnormalities. Note on Evita scores and lifetime risk: 1. A Evita score greater than 3% is considered moderate risk. If this is the case, consider specialist referral to assess eligibility for a risk reducing agent. 2. If overall lifetime risk for the development of breast cancer is 20% or higher, the patient may qualify for future screening with alternating mammogram and breast MRI. Electronically signed and approved by: Panchito Trivedi M.D. Radiologis
== END | disposition home or self-care (01) ==
LOC: RADMAMWWP 15:02
PROVIDERS: ATTEND Family Medicine
DX: Z12.31 Encounter for screening mammogram for malignant neoplasm of breast (principal); R92.323 Mammographic fibroglandular density, bilateral breasts; Z78.0 Asymptomatic menopausal state
CPT/HCPCS: 77063; 77067; 80053; 80061; 82306; 82607; 83036; 83970; 84443; 85025

== ENCOUNTER → 2024-05-14 | Outpatient (CLI) | payer MEDICARE, OTHER ==
[~2024-05-14] MED LIST changes: -ACETAMINOPHEN TAB 500 MG TAB PO PRN; -DEXAMETHASONE SOD PHOSPHATE 4 MG/ML 1 ML VIAL IV ONE; -GABAPENTIN 300 MG CAP PO PRN; -HYDROmorphone 0.5 MG/0.5 ML SYRINGE IVP PRN; -LIDOCAINE 1% (10MG/ML) FOR IV START INTRADERMA PRN; -MELOXICAM 7.5 MG TAB PO PRN; +SODIUM CHLORIDE 0.9% IV NR; -TRANEXAMIC 1,000 MG/100ML-NACL 1,000 MG in SALINE 1 100ML.BAG IVPB PRN; -droPERidol 5 MG/2 ML VIAL IVP ONE
[2024-05-14] MEDS: SODIUM CHLORIDE 0.9% 500 ML 500 ML in EMPTY BAG 1 BAG IV PRN (08:49)
[2024-05-14] MEDS: SODIUM CHLORIDE 0.9% IV NR (09:29)
[2024-05-14 09:30] VITALS: RESP 16
[2024-05-14 10:37] VITALS: BP 118/58; PULSE 84
== END ==
LOC: PROCWHC3 08:33
PROVIDERS: ATTEND Internal Medicine Infectious Disease
DX: A04.71 Enterocolitis due to Clostridium difficile, recurrent (principal)
CPT/HCPCS: 96365

== ENCOUNTER → 2024-11-01 | Outpatient (CLI) | payer MEDICARE, OTHER ==
[2024-11-01 19:26] LABS: % Iron Saturation 21.37 (12.00-45.00); ALT 11 U/L (8-44); AST 14 U/L (13-35); Albumin 4.3 g/dL (3.8-4.9); Albumin/Globulin Ratio 1.59 Ratio (1.60-3.17); Alkaline Phosphatase 97 U/L (41-126); BUN/Creat Ratio 23.22 Ratio (12.00-20.00); Blood Urea Nitrogen 20.9 mg/dL (9.0-27.0); Calcium 10.4 mg/dL (8.7-10.3); Carbon Dioxide 23.3 mmol/L (21.6-31.8); Chloride 103 mmol/L (96-109); Globulin 2.7 g/dL (1.6-3.3); Glucose 99 mg/dL (70-110); Iron 81 UG/DL (50-170); Potassium 4.1 mmol/L (3.5-5.5); Sodium 141 mmol/L (135-145); Total Bilirubin 0.5 mg/dL (0.3-1.2); Total Iron Binding Capacity 379 UG/DL (228-460)
[2024-11-01 19:29] LABS: MCH 29.8 pg (27.0-32.0); MCHC 32.6 g/dL (32.0-37.0); MCV 91.5 FL (80.0-97.0); Mean Platelet Volume 10.8 FL (9.5-12.2); NRBC Per 100 WBC 0 X 10*3/uL (0.00-0.01); Platelet Count 184 X 10*3/uL (140-440); RDW 13.7 % (11.5-14.5); WBC 6.64 X 10*3/uL (4.50-10.00)
[2024-11-01 19:55] LABS: Basophils # (A) 0.01 X 10*3/uL (0.00-0.10); Basophils % (A) 0.2 %; Eosinophils # (A) 0.03 X 10*3/uL (0.04-0.35); Eosinophils % (A) 0.5 %; Lymphocytes # (A) 2.61 X 10*3/uL (0.90-5.00); Lymphocytes % (A) 39.3 %; Monocytes # (A) 1.58 X 10*3/uL (0.20-1.00); Monocytes % (A) 23.8 %; Neutrophils # (A) 2.34 X 10*3/uL (1.80-7.70); Neutrophils % (A) 35.1 %; RBC Morphology Normal (Normal)
== END | disposition home or self-care (01) ==
LOC: LABWHC1 13:59
PROVIDERS: ATTEND Family Medicine
DX: I12.9 Hypertensive chronic kidney disease with stage 1 through stage 4 chronic kidney disease, or unspecified chronic kidney disease (principal); E83.42 Hypomagnesemia; R41.3 Other amnesia; R79.9 Abnormal finding of blood chemistry, unspecified
CPT/HCPCS: 36415; 80053; 82728; 83540; 83550; 84443; 85025

== ENCOUNTER → 2025-04-22 | Outpatient (CLI) | payer MEDICARE, OTHER ==
[2025-04-22 19:26] LABS: Basophils # (A) 0.03 X 10*3/uL (0.00-0.10); Basophils % (A) 0.4 %; Eosinophils # (A) 0.05 X 10*3/uL (0.04-0.35); Eosinophils % (A) 0.7 %; HCT 42.9 % (37.2-46.3); HGB 13.8 g/dL (12.0-15.0); Lymphocytes # (A) 2.74 X 10*3/uL (0.90-5.00); Lymphocytes % (A) 39.2 %; MCH 29.4 pg (27.0-32.0); MCHC 32.2 g/dL (32.0-37.0); MCV 91.5 FL (80.0-97.0); Mean Platelet Volume 11.5 FL (9.5-12.2); Monocytes # (A) 1.41 X 10*3/uL (0.20-1.00); Monocytes % (A) 20.2 %; NRBC Per 100 WBC 0 X 10*3/uL (0.00-0.01); Neutrophils # (A) 2.64 X 10*3/uL (1.80-7.70); Neutrophils % (A) 37.8 %; Platelet Count 190 X 10*3/uL (140-440); RBC 4.69 X 10*6/uL (4.10-5.20); RDW 12.7 % (11.5-14.5); WBC 6.99 X 10*3/uL (4.50-10.00)
[2025-04-22 21:23] LABS: ALT 14 U/L (8-44); AST 13 U/L (13-35); Albumin 4.7 g/dL (3.8-4.9); Albumin/Globulin Ratio 1.74 Ratio (1.60-3.17); Alkaline Phosphatase 93 U/L (41-126); BUN/Creat Ratio 21.22 Ratio (12.00-20.00); Blood Urea Nitrogen 19.1 mg/dL (9.0-27.0); Calcium 11.4 mg/dL (8.7-10.3); Carbon Dioxide 28.2 mmol/L (21.6-31.8); Chloride 98 mmol/L (96-109); Chol/HDL Ratio 1.71 Ratio; Globulin 2.7 g/dL (1.6-3.3); Glucose 93 mg/dL (70-110); LDL Cholesterol,Calculated 40.8 mg/dL (0.0-131.0); Magnesium 1.8 mg/dL (1.5-2.4); Potassium 4.5 mmol/L (3.5-5.5); Sodium 143 mmol/L (135-145); T4, Free (Free Thyroxine) 1.62 ng/dL (0.80-1.80); Total Bilirubin 0.4 mg/dL (0.3-1.2); Total Protein 7.4 g/dL (6.2-8.2); VLDL Calculation 18.92 mg/dL (5.00-40.00)
[2025-04-22 22:16] LABS: Protein, Total 7.2 g/dL (6.2-8.2)
[2025-04-23 11:53] LABS: Free Kappa Lt Chain Qnt, Serum 2.56 mg/dL (0.33-1.94); Free Lambda Lt Chain Qnt, Seru 2.03 mg/dL (0.57-2.63)
== END | disposition home or self-care (01) ==
LOC: LABWHC1 13:40
PROVIDERS: ATTEND Family Medicine
DX: I12.9 Hypertensive chronic kidney disease with stage 1 through stage 4 chronic kidney disease, or unspecified chronic kidney disease (principal); N18.9 Chronic kidney disease, unspecified; R91.1 Solitary pulmonary nodule; R73.9 Hyperglycemia, unspecified
CPT/HCPCS: 36415; 80053; 80061; 83036; 83735; 83883; 84165; 84439; 84443; 85025; 86334